=== PATIENT | female | born 1945 | race Caucasian/White ===

== ENCOUNTER 2020-08-14 08:56 | Emergency (ER) | payer MEDICARE, BC ==
--- NOTE | 2020-08-14 09:20 | ERPHSYRPT ---
- History of Present Illness Time Seen by Provider: 08/14/20 09:20 Source: patient Exam Limitations: no limitations Physician History: This is a 75-year-old white female who was in the infusion center receiving her last dose of Rocephin through a PIC line that is been present since her diagnosis of septicemia. The patient received her infusion of Rocephin and was to be discharged to home after removal of the PICC line. However, patient was recorded to have a systolic blood pressure in the 70s. Patient is and was asymptomatic. The nursing staff did not feel comfortable discharging her to home. Therefore, they sent her to the emergency room for evaluation. Patient does have a history of coronary artery disease and CABG in the past. However she is not having any shortness of breath or chest pain. Patient systolic blood pressures x2 upon arrival to the emergency department is 130 and 120 respectively. Timing/Duration: today Modifying Factors: Improves With: nothing Associated Symptoms: denies symptoms Allergies/Adverse Reactions: iodine Allergy (Severe, Verified 08/14/20 09:23) Hives Home Medications: Albuterol 2.5 mg/3 ml Neb [Proventil 2.5 mg/3 ml Neb] 2.5 mg IH QID 08/06/20 [History] Albuterol/Ipratropium cc [Combivent Inhaler COMMON CANISTER] 15 gm IH DAILY 08/06/20 [History] Amlodipine Besylate [Norvasc] 2.5 mg PO DAILY 08/06/20 [History] Aspirin EC 81 mg [Ecotrin 81 mg] 81 mg PO DAILY 08/06/20 [History] Calcium Carb,Cit/D3/Phytostrol [Citracal D + Heart Health Tab] 1 each PO DAILY 08/06/20 [History] Carvedilol [Coreg] 25 mg PO BID 08/06/20 [History] Clopidogrel Bisulfate 75 mg [PLAVIX 75 MG Tablet] 75 mg PO DAILY 08/06/20 [History] Famotidine 20 mg [Pepcid 20 MG] 20 mg PO BID 08/06/20 [History] Furosemide [Lasix] 20 mg PO DAILY 08/06/20 [History] Losartan Potassium [Cozaar] 25 mg PO BID 08/06/20 [History] Potassium Chloride [Klor-Con] 20 meq PO DAILY 08/06/20 [History] Prednisone 20 mg PO BID 08/06/20 [History] Rosuvastatin Calcium [Crestor] 20 mg PO HS 08/06/20 [History] Travel Risk - International Travel Have you traveled outside of the country in past 3 weeks: No - Coronavirus Screening Are you exhibiting any of the following symptoms?: No Close contact with a COVID-19 positive Pt in past 14-21 Days: No - Review of Systems Constitutional: No Symptoms Eyes: No Symptoms Ears, Nose, & Throat: No Symptoms Respiratory: No Symptoms Cardiac: No Symptoms Abdominal/Gastrointestinal: No Symptoms Genitourinary Symptoms: No Symptoms Musculoskeletal: No Symptoms Skin: No Symptoms Neurological: No Symptoms Psychological: No Symptoms Endocrine: No Symptoms Hematologic/Lymphatic: No Symptoms Immunological/Allergic: No Symptoms All Other Systems: Reviewed and Negative - Past Medical History Neurological History: No Pertinent History ENT History: Cataracts Cardiac History: Coronary Artery Disease, High Cholesterol, Hypertension Respiratory History: COPD, Emphysema, Pneumonia Endocrine Medical History: No Pertinent History Musculoskeletal History: Arthritis, Osteoarthritis GI Medical History: GERD, Polyps History: No Pertinent History Psycho-Social History: No Pertinent History Female Reproductive Disorders: No Pertinent History - Past Surgical History Past Surgical History: Yes Neuro Surgical History: No Pertinent History Cardiac: CABG Gastrointestinal: Appendectomy, Cholecystectomy Genitourinary: No Pertinent History Musculoskeletal: Orthopedic Surgery Female Surgical History: Hysterectomy, Tubal Ligation Other Surgical History: 2 screws in lower back,carpal tunnel release to right wrist - Social History Smoking Status: Former smoker Drug Use: none - Nursing Vital Signs Nursing Vital Signs: Initial Vital Signs Temperature 98.2 F 08/14/20 09:13 Pulse Rate 71 08/14/20 09:13 Respiratory Rate 20 08/14/20 09:13 Blood Pressure 137/79 08/14/20 09:13 O2 Sat by Pulse Oximetry 99 08/14/20 09:13 Pain Scale Pain Intensity 0 - Physical Exam General Appearance: no apparent distress, alert Eye Exam: PERRL/EOMI, eyes nml inspection Ears, Nose, Throat Exam: normal ENT inspection, moist mucous membranes Neck Exam: normal inspection, non-tender, supple, full range of motion Respiratory Exam: normal breath sounds, lungs clear, airway intact, No chest tenderness, No respiratory distress Cardiovascular Exam: regular rate/rhythm, normal heart sounds, normal peripheral pulses Gastrointestinal/Abdomen Exam: soft, normal bowel sounds, No tenderness Pelvic Exam: not done Rectal Exam: not done Back Exam: normal inspection, normal range of motion, No CVA tenderness, No vertebral tenderness Extremity Exam: normal inspection, normal range of motion, pelvis stable Neurologic Exam: alert, oriented x 3, cooperative, 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, normal mood/affect, nml cerebellar function, nml station & gait, sensation nml Skin Exam: normal color, warm, dry Lymphatic Exam: No adenopathy SpO2 Interpretation: normal O2 Delivery: Room Air Ordered Tests: Active Orders 24 hr Category Date Time Status EKG-ER Only STAT Care 08/14/20 09:32 Active IV Insertion STAT Care 08/14/20 09:32 Active BMP Stat Lab 08/14/20 10:00 Completed CBC W DIFF Stat Lab 08/14/20 10:00 Completed Manual Differential NC Stat Lab 08/14/20 10:00 Completed TROPONIN Q3H Lab 08/14/20 10:00 Completed TROPONIN Q3H Lab 08/14/20 12:45 Ordered TROPONIN Q3H Lab 08/14/20 15:45 Ordered TROPONIN Q3H Lab 08/14/20 18:45 Ordered TROPONIN Q3H Lab 08/14/20 21:45 Ordered UA W/RFX UR CULTURE Stat Lab 08/14/20 10:05 Completed Medication Summary Discontinued Medications Generic Name Dose Route Start Last Admin Trade Name Freq PRN Reason Stop Dose Admin Sodium Chloride 500 mls @ 500 mls/hr 08/14/20 09:33 08/14/20 09:38 Sodium Chloride 0.9% 500 Ml IV 08/14/20 10:32 500 mls/hr .Q1H ONE Administration Sodium Chloride Confirm 08/14/20 09:36 Sodium Chloride 0.9% 500 Ml Administered 08/14/20 09:37 Dose 500 mls @ ud IV .STK-MED ONE Lab/Rad Data: Laboratory Result Diagrams 08/14/20 10:00 08/14/20 10:00 Laboratory Results 08/14/20 08/14/20 08/14/20 Range/Units 10:05 10:00 10:00 WBC (4.0-10.5) K/mm3 RBC (4.1-5.4) M/mm3 Hgb (12.0-16.0) gm/dl Hct (35-47) % MCV (78-100) fl MCH (26-32) pg MCHC (32-36) g/dl RDW (11.5-14.0) % Plt Count (150-450) K/mm3 MPV (7.5-11.0) fl Sodium 139 (137-145) mmol/L Potassium 3.9 (3.5-5.1) mmol/L Chloride 107 (98-107) mmol/L Carbon Dioxide 27 (22-30) mmol/L Anion Gap 8.9 (5-15) MEQ/L BUN 12 (7-17) mg/dL Creatinine 1.07 H (0.52-1.04) mg/dL Estimated GFR 53.1 ML/MIN Glucose 93 (74-106) mg/dL Calcium 9.3 (8.4-10.2) mg/dL Troponin I < 0.012 (0.000-0.034) ng/mL Urine Color YELLOW (YELLOW) Urine Appearance CLEAR (CLEAR) Urine pH 7.0 (5-6) Ur Specific Gaines 1.014 (1.005-1.025) Urine Protein NEGATIVE (Negative) Urine Ketones NEGATIVE (NEGATIVE) Urine Blood NEGATIVE (0-5) Estuardo/ul Urine Nitrite NEGATIVE (NEGATIVE) Urine Bilirubin NEGATIVE (NEGATIVE) Urine Urobilinogen NEGATIVE (0-1) mg/dL Ur Leukocyte Esterase NEGATIVE (NEGATIVE) Urine WBC (Auto) 6-10 (0-5) /HPF Urine RBC (Auto) 0-2 (0-2) /HPF U Hyaline Cast (Auto) 0-2 (0-2) /LPF U Epithel Cells (Auto) RARE (FEW) /HPF Urine Bacteria (Auto) NONE SEEN (NEGATIVE) /HPF Other Casts (Auto) NEGATIVE (NEGATIVE) /LPF Urine Mucus (Auto) SLIGHT (NEGATIVE) /HPF Urine Culture Reflexed NO (NO) Urine Glucose NEGATIVE (NEGATIVE) mg/dL 08/14/20 Range/Units 10:00 WBC 8.7 (4.0-10.5) K/mm3 RBC 3.22 L (4.1-5.4) M/mm3 Hgb 10.8 L (12.0-16.0) gm/dl Hct 34.6 L (35-47) % MCV 107.5 H (78-100) fl MCH 33.5 H (26-32) pg MCHC 31.2 L (32-36) g/dl RDW 14.4 H (11.5-14.0) % Plt Count 176 (150-450) K/mm3 MPV 10.8 (7.5-11.0) fl Sodium (137-145) mmol/L Potassium (3.5-5.1) mmol/L Chloride (98-107) mmol/L Carbon Dioxide (22-30) mmol/L Anion Gap (5-15) MEQ/L BUN (7-17) mg/dL Creatinine (0.52-1.04) mg/dL Estimated GFR ML/MIN Glucose (74-106) mg/dL Calcium (8.4-10.2) mg/dL Troponin I (0.000-0.034) ng/mL Urine Color (YELLOW) Urine Appearance (CLEAR) Urine pH (5-6) Ur Specific Gaines (1.005-1.025) Urine Protein (Negative) Urine Ketones (NEGATIVE) Urine Blood (0-5) Estuardo/ul Urine Nitrite (NEGATIVE) Urine Bilirubin (NEGATIVE) Urine Urobilinogen (0-1) mg/dL Ur Leukocyte Esterase (NEGATIVE) Urine WBC (Auto) (0-5) /HPF Urine RBC (Auto) (0-2) /HPF U Hyaline Cast (Auto) (0-2) /LPF U Epithel Cells (Auto) (FEW) /HPF Urine Bacteria (Auto) (NEGATIVE) /HPF Other Casts (Auto) (NEGATIVE) /LPF Urine Mucus (Auto) (NEGATIVE) /HPF Urine Culture Reflexed (NO) Urine Glucose (NEGATIVE) mg/dL - Progress Progress: unchanged Progress Note: 08/14/20 11:03 Patient has no symptoms. She has no chest pain she is not short of breath. Her blood pressure is in a normal range. We will discharge her to home Counseled pt/family regarding: lab results, diagnosis, need for follow-up - Departure Departure Disposition: Home Clinical Impression: Hypotension Condition: Stable Critical Care Time: No Referrals: MARIUSZ LINARES MD [Primary Care Provider] - Additional Instructions: Drink plenty of fluids. Take your medication as prescribed. Follow-up with your primary care physician for further management.
[2020-08-14] MEDS ORDERED: Sodium Chloride 0.9% 500 ML 500 ML IV ONE ×2 (09:33→09:36)
[2020-08-14 10:07] LABS: Hematocrit 34.6 % (35-47); Hemoglobin 10.8 gm/dl (12.0-16.0); Mean Cell Volume 107.5 fl (78-100); Mean Corpuscular Hemoglobin 33.5 pg (26-32); Mean Corpuscular Hgb Concent. 31.2 g/dl (32-36); Mean Platelet Volume 10.8 fl (7.5-11.0); Platelet Count 176 K/mm3 (150-450); Red Blood Count 3.22 M/mm3 (4.1-5.4); Red Cell Distribution Width 14.4 % (11.5-14.0); White Blood Count 8.7 K/mm3 (4.0-10.5)
[2020-08-14 10:15] LABS: Appearance CLEAR (CLEAR); Bilirubin NEGATIVE (NEGATIVE); Blood NEGATIVE Ery/ul (0-5); Epithelial Cells RARE /HPF (FEW); Glucose NEGATIVE (NEGATIVE); Hyaline Casts 0-2 /LPF (0-2); Ketones NEGATIVE (NEGATIVE); Leukocyte Esterase NEGATIVE (NEGATIVE); Mucus SLIGHT /HPF (NEGATIVE); Nitrite NEGATIVE (NEGATIVE); Protein,Urine Dip NEGATIVE (Negative); RBC 0-2 /HPF (0-2); Specific Gravity 1.014 (1.005-1.025); Urobilinogen NEGATIVE mg/dL (0-1)
[2020-08-14 10:26] LABS: Bacteria NONE SEEN /HPF (NEGATIVE)
[2020-08-14 10:30] LABS: ANION GAP 8.9 MEQ/L (5-15); Calcium 9.3 mg/dL (8.4-10.2); Creatinine 1 1.07 mg/dL (0.52-1.04); EST GLOMERULAR FILTRATION RATE 53.1 ML/MIN; Potassium 3.9 mmol/L (3.5-5.1)
[2020-08-14 11:33] VITALS: BP 128/71; PULSE 68; O2SAT 98
[2020-08-14 11:40] LABS: BAND 1 % (0.0-2.0); Eosinophil 2 % (0.00-3.0); Lymphocytes 37 % (24-44); Monocyte 14 % (0.0-12.0); Neutrophils 46 % (36.0-66.0); Total Cells Counted 100
[2020-08-14 11:41] LABS: Platelet Estimate NORMAL (NORMAL)
== END 2020-08-14 11:22 | disposition home or self-care (01) ==
LOC: ED 08:56
DX: I95.9 Hypotension, unspecified (principal); I25.10 Atherosclerotic heart disease of native coronary artery without angina pectoris; Z95.1 Presence of aortocoronary bypass graft; I10 Essential (primary) hypertension; E78.00 Pure hypercholesterolemia, unspecified; Z79.899 Other long term (current) drug therapy
CPT/HCPCS: 36415; 80048; 81001; 84484; 85025; 93005; 99284

== ENCOUNTER 2021-05-23 11:26 | Observation (INO) | payer MEDICARE, BC ==
[2021-05-23] MEDS ORDERED: MEDICATION INTERVENTION MC SCH (15:15)
[2021-05-23] MEDS: Sodium Chloride 0.9% 1000 ML 1,000 ML IV SCH (16:14)
[2021-05-23] MEDS: ROCEPHIN 1 Gm-D5w 50 ml Bag** 1 G/50 ML IVPB IV SCH (16:15)
--- NOTE | 2021-05-23 16:34 | XRAY ---
Indication: Short of breath. Comparison: January 15, 2020. PA/lateral chest again demonstrates COPD, CIPD, and a few tiny calcified granulomas. No focal infiltrate, consolidation, or large effusion. Heart not enlarged again with CABG surgery. Bony thorax intact again with mild osteopenia and minimal degenerative changes. Impression: Nonacute chest with chronic features.
[2021-05-23 16:36] LABS: Hematocrit 35.4 % (35-47); Hemoglobin 11.4 gm/dl (12.0-16.0); Mean Cell Volume 101.7 fl (78-100); Mean Corpuscular Hemoglobin 32.8 pg (26-32); Mean Corpuscular Hgb Concent. 32.2 g/dl (32-36); Mean Platelet Volume 9.2 fl (7.5-11.0); Platelet Count 248 K/mm3 (150-450); Red Blood Count 3.48 M/mm3 (4.1-5.4); Red Cell Distribution Width 13.1 % (11.5-14.0); White Blood Count 12.7 K/mm3 (4.0-10.5)
[2021-05-23 16:59] LABS: ALBUMIN 3.7 g/dL (3.5-5.0); ANION GAP 14.4 MEQ/L (5-15); BILIRUBIN,TOTAL 0.7 mg/dL (0.2-1.3); Creatinine 1 1.13 mg/dL (0.52-1.04); EST GLOMERULAR FILTRATION RATE 49.8 ML/MIN; Potassium 4.2 mmol/L (3.5-5.1); Total Protein 6.7 g/dL (6.3-8.2)
[2021-05-23] MEDS: Zithromax 500 MG/ 250 ML NaCl Premix 500 MG/250 ML IVPB IV SCH (17:16)
[2021-05-23] MEDS: PROVENTIL 2.5 MG/3 ML NEB IH SCH ×2 (17:23→20:15)
[2021-05-23] MEDS ORDERED: Advair Hfa 230/21 Mcg COMMON CANISTER IH SCH (19:00)
[2021-05-23 20:01] LABS: Eosinophil 1 % (0.00-3.0); Lymphocytes 16 % (24-44); Macrocytosis 1+; Monocyte 8 % (0.0-12.0); Neutrophils 75 % (36.0-66.0); Platelet Estimate NORMAL (NORMAL); Total Cells Counted 100
[2021-05-23] MEDS: Advair Hfa 115/21 Common canister IH SCH (20:18)
[2021-05-23] MEDS: ZOCOR 20MG PO SCH (21:03)
[2021-05-23] MEDS: COREG 12.5 MG PO SCH (21:03)
[2021-05-23] MEDS: Pepcid 20 MG PO SCH (21:04)
[2021-05-23] MEDS: Cozaar 50 MG PO SCH (21:06)
[2021-05-23 21:30] LABS: Appearance SLIGHTLY CLOUDY (CLEAR); Bacteria RARE /HPF (NEGATIVE); Bilirubin NEGATIVE (NEGATIVE); Blood MODERATE Ery/ul (0-5); Epithelial Cells RARE /HPF (FEW); Glucose NEGATIVE (NEGATIVE); Ketones TRACE (NEGATIVE); Leukocyte Esterase LARGE (NEGATIVE); Mucus SLIGHT /HPF (NEGATIVE); Nitrite NEGATIVE (NEGATIVE); Protein,Urine Dip 30 (Negative); RBC 0-2 /HPF (0-2); Urobilinogen NEGATIVE mg/dL (0-1); WBC >100 /HPF (0-5)
[2021-05-23] MEDS ORDERED: NON-FORMULARY ITEM (Rosuvastatin Calcium [Crestor] 20 MG) PO SCH (22:00)
[2021-05-23] MEDS ORDERED: NON-FORMULARY ITEM (Carvedilol [Coreg] 25 MG) PO SCH (22:00)
[2021-05-23] MEDS ORDERED: NON-FORMULARY ITEM (Losartan Potassium [Cozaar] 25 MG) PO SCH (22:00)
[2021-05-23] MEDS: TYLENOL 325 MG PO PRN (23:48)
[2021-05-24] MEDS: Sodium Chloride 0.9% 1000 ML 1,000 ML IV SCH ×2 (04:50→20:28)
[2021-05-24] MEDS ORDERED: DUONEB 0.5-3 MG/3 ml Neb IH SCH (07:00)
[2021-05-24] MEDS: PROVENTIL 2.5 MG/3 ML NEB IH SCH ×4 (07:31→18:55)
[2021-05-24] MEDS: Advair Hfa 115/21 Common canister IH SCH ×2 (07:34→18:55)
--- NOTE | 2021-05-24 08:02 | PCM.HP.ADD ---
Addendum to History & Physical - History & Physical Addendum Addendum to History & Physical: This certifies that the History & Physical in the electronic chart reflects the current health status of the patient. If there are changes in the H&P these changes/exceptions are listed as follows.
--- NOTE | 2021-05-24 08:04 | PCM.NOTE ---
Date and Time: 05/24/21801 Subjective Assessment: feeling little better - Review of Systems Constitutional: No Fever, No Chills Eyes: No Symptoms Ears, Nose, & Throat: No Symptoms Respiratory: Cough, Orthopnea, Wheezing, No Short Of Breath Cardiac: No Chest Pain, No Edema, No Syncope Abdominal/Gastrointestinal: No Abdominal Pain, No Nausea, No Vomiting, No Diarrhea Genitourinary Symptoms: No Dysuria Musculoskeletal: No Back Pain, No Neck Pain Skin: No Rash Neurological: No Dizziness, No Focal Weakness, No Sensory Changes Psychological: No Symptoms Endocrine: No Symptoms Hematologic/Lymphatic: No Symptoms Immunological/Allergic: No Symptoms Objective Exam General Appearance: no apparent distress, alert Neurologic Exam: alert, oriented x 3, cooperative, normal mood/affect, nml cerebellar function, sensation nml, No motor deficits Skin Exam: normal color, warm, dry Eye Exam: PERRL, EOMI, eyes nml inspection Ears, Nose, Throat Exam: normal ENT inspection, pharynx normal, moist mucous membranes Neck Exam: normal inspection, non-tender, supple, full range of motion Respiratory Exam: diminished breath sounds, rhonchi, wheezing, No respiratory distress Cardiovascular Exam: regular rate/rhythm, normal heart sounds Gastrointestinal/Abdomen Exam: soft, No tenderness, No mass Extremity Exam: normal inspection, normal range of motion Back Exam: normal inspection, normal range of motion, No CVA tenderness, No vertebral tenderness Pelvic Exam: deferred Rectal Exam: deferred OBJECTIVE DATA Vital Signs: Vital Signs - 24 hr Temp Pulse Resp BP BP Pulse Ox 05/24/21 07:35 67 16 97 05/24/21 04:00 96.8 F 62 12 118/57 96 05/23/21 23:44 96.9 F 66 16 111/56 97 05/23/21 21:08 71 134/60 05/23/21 20:21 64 22 97 05/23/21 19:06 97.5 F 71 16 96/51 98 05/23/21 17:23 76 22 97 05/23/21 16:00 97.4 F 67 22 139/68 97 05/23/21 14:07 97.4 F 67 24 139/68 97 Pain Assessment - Last Documented Pain Intensity 0 Pain Scale Used 0-10 Pain Scale Intake and Output: Intake & Output 05/21/21 05/22/21 05/23/21 05/24/21 11:59 11:59 11:59 11:59 Intake Total 1797 Output Total 800 Balance 997 Weight 65.5 kg Lab Results: Lab Results-Last 24 Hours 05/23/21 05/23/21 05/23/21 Range/Units 13:06 15:33 16:16 WBC 12.7 H (4.0-10.5) K/mm3 RBC 3.48 L (4.1-5.4) M/mm3 Hgb 11.4 L (12.0-16.0) gm/dl Hct 35.4 (35-47) % MCV 101.7 H (78-100) fl MCH 32.8 H (26-32) pg MCHC 32.2 (32-36) g/dl RDW 13.1 (11.5-14.0) % Plt Count 248 (150-450) K/mm3 MPV 9.2 (7.5-11.0) fl Segmented Neutrophils 75 H (36.0-66.0) % Lymphocytes (Manual) 16 L (24-44) % Monocytes (Manual) 8 (0.0-12.0) % Eosinophils (Manual) 1 (0.00-3.0) % Platelet Estimate NORMAL (NORMAL) RBC Morphology ABNORMAL Macrocytosis 1+ Sodium (137-145) mmol/L Potassium (3.5-5.1) mmol/L Chloride (98-107) mmol/L Carbon Dioxide (22-30) mmol/L Anion Gap (5-15) MEQ/L BUN (7-17) mg/dL Creatinine (0.52-1.04) mg/dL Estimated GFR ML/MIN Glucose (74-106) mg/dL Calcium (8.4-10.2) mg/dL Total Bilirubin (0.2-1.3) mg/dL AST (14-36) U/L ALT (0-35) U/L Alkaline Phosphatase (38-126) U/L NT-Pro-B Natriuret Pep (0-1800) pg/mL Serum Total Protein (6.3-8.2) g/dL Albumin (3.5-5.0) g/dL Urine Color YELLOW (YELLOW) Urine Appearance SLIGHTLY CLOUDY (CLEAR) Urine pH 7.0 (5-6) Ur Specific [place] 1.010 (1.005-1.025) Urine Protein 30 (Negative) Urine Ketones TRACE (NEGATIVE) Urine Blood MODERATE (0-5) Estuardo/ul Urine Nitrite NEGATIVE (NEGATIVE) Urine Bilirubin NEGATIVE (NEGATIVE) Urine Urobilinogen NEGATIVE (0-1) mg/dL Ur Leukocyte Esterase LARGE (NEGATIVE) Urine WBC (Auto) >100 (0-5) /HPF Urine RBC (Auto) 0-2 (0-2) /HPF U Epithel Cells (Auto) RARE (FEW) /HPF Urine Bacteria (Auto) RARE (NEGATIVE) /HPF Urine Mucus (Auto) SLIGHT (NEGATIVE) /HPF Urine Culture Reflexed YES (NO) Urine Glucose NEGATIVE (NEGATIVE) mg/dL SARS-CoV-2 (PCR) NEGATIVE (NEGATIVE) 05/23/21 Range/Units 16:16 WBC (4.0-10.5) K/mm3 RBC (4.1-5.4) M/mm3 Hgb (12.0-16.0) gm/dl Hct (35-47) % MCV (78-100) fl MCH (26-32) pg MCHC (32-36) g/dl RDW (11.5-14.0) % Plt Count (150-450) K/mm3 MPV (7.5-11.0) fl Segmented Neutrophils (36.0-66.0) % Lymphocytes (Manual) (24-44) % Monocytes (Manual) (0.0-12.0) % Eosinophils (Manual) (0.00-3.0) % Platelet Estimate (NORMAL) RBC Morphology Macrocytosis Sodium 132 L (137-145) mmol/L Potassium 4.2 (3.5-5.1) mmol/L Chloride 99 (98-107) mmol/L Carbon Dioxide 23 (22-30) mmol/L Anion Gap 14.4 (5-15) MEQ/L BUN 24 H (7-17) mg/dL Creatinine 1.13 H (0.52-1.04) mg/dL Estimated GFR 49.8 ML/MIN Glucose 101 (74-106) mg/dL Calcium 9.0 (8.4-10.2) mg/dL Total Bilirubin 0.70 (0.2-1.3) mg/dL AST 44 H (14-36) U/L ALT 41 H (0-35) U/L Alkaline Phosphatase 93 (38-126) U/L NT-Pro-B Natriuret Pep 152 (0-1800) pg/mL Serum Total Protein 6.7 (6.3-8.2) g/dL Albumin 3.7 (3.5-5.0) g/dL Urine Color (YELLOW) Urine Appearance (CLEAR) Urine pH (5-6) Ur Specific [place] (1.005-1.025) Urine Protein (Negative) Urine Ketones (NEGATIVE) Urine Blood (0-5) Estuardo/ul Urine Nitrite (NEGATIVE) Urine Bilirubin (NEGATIVE) Urine Urobilinogen (0-1) mg/dL Ur Leukocyte Esterase (NEGATIVE) Urine WBC (Auto) (0-5) /HPF Urine RBC (Auto) (0-2) /HPF U Epithel Cells (Auto) (FEW) /HPF Urine Bacteria (Auto) (NEGATIVE) /HPF Urine Mucus (Auto) (NEGATIVE) /HPF Urine Culture Reflexed (NO) Urine Glucose (NEGATIVE) mg/dL SARS-CoV-2 (PCR) (NEGATIVE) Radiology Exams: Radiology Procedures Category Date Time Status CHEST 2 VIEWS (PA AND LAT) Stat Exams 05/23/21 15:50 Completed Assessment/Plan (1) Bronchitis Current Visit: Yes Status: Acute Assessment & Plan: Chief Complaint Diagnosis sob Allergies Allergy/AdvReac Type Severity Reaction Status Date / Time iodine Allergy Severe Hives Verified 05/23/21 14:34 Vital Signs (Last 24 hours) Temp Pulse Resp BP BP Pulse Ox 05/24/21 07:35 67 16 97 05/24/21 04:00 96.8 F 62 12 118/57 96 05/23/21 23:44 96.9 F 66 16 111/56 97 05/23/21 21:08 71 134/60 05/23/21 20:21 64 22 97 05/23/21 19:06 97.5 F 71 16 96/51 98 05/23/21 17:23 76 22 97 05/23/21 16:00 97.4 F 67 22 139/68 97 05/23/21 14:07 97.4 F 67 24 139/68 97 Home Medications Medication Instructions Recorded Confirmed Last Taken Type Multivitamin [Multiple Vitamins] 1 each PO DAILY 05/23/21 05/23/21 05/23/21 History Current Medications Generic Name Dose Route Start Last Admin Trade Name Freq PRN Reason Stop Dose Admin Acetaminophen 650 mg 05/23/21 23:46 05/23/21 23:48 Tylenol 325 Mg PO 06/22/21 23:45 650 mg Q4H PRN PRN Administration PAIN AND/OR FEVER Albuterol Sulfate 2.5 mg 05/23/21 15:00 05/24/21 07:31 Proventil 2.5 Mg/3 Ml Neb IH 06/22/21 14:59 2.5 mg QIDRT MICKY Administration Amlodipine Besylate 2.5 mg 05/24/21 10:00 Norvasc 5 Mg PO 06/23/21 09:59 DAILY MICKY Aspirin 81 mg 05/24/21 10:00 Ecotrin 81 Mg PO 06/23/21 09:59 DAILY MICKY Carvedilol 25 mg 05/23/21 22:00 05/23/21 21:03 Coreg 12.5 Mg PO 06/22/21 21:59 25 mg BID MICKY Administration Clopidogrel Bisulfate 75 mg 05/24/21 10:00 Plavix 75 Mg Tablet PO 06/23/21 09:59 DAILY MICKY Famotidine 20 mg 05/23/21 22:00 05/23/21 21:04 Pepcid 20 Mg PO 06/22/21 21:59 20 mg BID MICKY Administration Furosemide 20 mg 05/24/21 10:00 Lasix 20 Mg PO 06/23/21 09:59 DAILY MICKY Sodium Chloride 1,000 mls @ 100 mls/hr 05/23/21 15:45 05/24/21 04:50 Sodium Chloride 0.9% 1000 Ml IV 06/22/21 15:44 100 mls/hr .Q10H MICKY Administration Ceftriaxone Sodium/Dextrose 1 g in 50 mls @ 100 mls/hr 05/23/21 16:00 05/23/21 16:15 Rocephin 1 Gm-D5w 50 Ml Bag IV 05/26/21 15:59 100 mls/hr 1600 MICKY Administration Azithromycin 500 mg in 250 mls @ 250 mls/hr 05/23/21 16:00 05/23/21 17:16 Zithromax 500 Mg/ 250 Ml Nacl Premix IV 06/22/21 15:59 250 mls/hr 1600 MICKY Administration Losartan Potassium 25 mg 05/23/21 22:00 05/23/21 21:06 Cozaar 50 Mg PO 06/22/21 21:59 25 mg BID MICKY Administration Miscellaneous Information 1 each 05/23/21 15:15 Medication Intervention 06/22/21 15:14 .RN TO CHECK MICKY Multivitamins Therapeutic 1 tab 05/24/21 10:00 Theragran Multivitamin PO 06/23/21 09:59 DAILY MICKY Potassium Chloride 20 meq 05/24/21 10:00 Klor Con 10 Meq PO 06/23/21 09:59 DAILY MICKY Fluticasone/Salmeterol 2 puff 05/23/21 19:00 05/24/21 07:34 Advair Hfa 115/21 Common Canister* IH 06/22/21 18:59 2 puff BIDRT MICKY Administration Simvastatin 40 mg 05/23/21 22:00 05/23/21 21:03 Zocor 20mg PO 06/22/21 21:59 40 mg HS MICKY Administration Discontinued Medications Generic Name Dose Route Start Last Admin Trade Name Freq PRN Reason Stop Dose Admin Albuterol/Ipratropium 3 ml 05/24/21 07:00 Duoneb 0.5-3 Mg/3 Ml Neb IH 06/23/21 06:59 0700 MICKY Fluticasone/Salmeterol 2 puff 05/23/21 19:00 Advair Hfa 230/21 Mcg Common Canister* IH 06/22/21 18:59 BIDRT MICKY Intake & Output (Last 24 hours) 05/21/21 05/22/21 05/23/21 05/24/21 11:59 11:59 11:59 11:59 Intake Total 1797 Output Total 800 Balance 997 Weight 65.5 kg Microbiology Results (Last 24 hours) 05/23/21 15:33 Urine, Void Urine Culture - Pending Laboratory Results (Last 24 hours) 05/23/21 05/23/21 05/23/21 16:16 16:16 15:33 WBC 12.7 H RBC 3.48 L Hgb 11.4 L Hct 35.4 MCV 101.7 H MCH 32.8 H MCHC 32.2 RDW 13.1 Plt Count 248 MPV 9.2 Segmented Neutrophils 75 H Lymphocytes (Manual) 16 L Monocytes (Manual) 8 Eosinophils (Manual) 1 Platelet Estimate NORMAL RBC Morphology ABNORMAL Macrocytosis 1+ Sodium 132 L Potassium 4.2 Chloride 99 Carbon Dioxide 23 Anion Gap 14.4 BUN 24 H Creatinine 1.13 H Estimated GFR 49.8 Glucose 101 Calcium 9.0 Total Bilirubin 0.70 AST 44 H ALT 41 H Alkaline Phosphatase 93 NT-Pro-B Natriuret Pep 152 Serum Total Protein 6.7 Albumin 3.7 Urine Color YELLOW Urine Appearance SLIGHTLY CLOUDY Urine pH 7.0 Ur Specific [place] 1.010 Urine Protein 30 Urine Ketones TRACE Urine Blood MODERATE Urine Nitrite NEGATIVE Urine Bilirubin NEGATIVE Urine Urobilinogen NEGATIVE Ur Leukocyte Esterase LARGE Urine WBC (Auto) >100 Urine RBC (Auto) 0-2 U Epithel Cells (Auto) RARE Urine Bacteria (Auto) RARE Urine Mucus (Auto) SLIGHT Urine Culture Reflexed YES Urine Glucose NEGATIVE SARS-CoV-2 (PCR) 05/23/21 13:06 WBC RBC Hgb Hct MCV MCH MCHC RDW Plt Count MPV Segmented Neutrophils Lymphocytes (Manual) Monocytes (Manual) Eosinophils (Manual) Platelet Estimate RBC Morphology Macrocytosis Sodium Potassium Chloride Carbon Dioxide Anion Gap BUN Creatinine Estimated GFR Glucose Calcium Total Bilirubin AST ALT Alkaline Phosphatase NT-Pro-B Natriuret Pep Serum Total Protein Albumin Urine Color Urine Appearance Urine pH Ur Specific [place] Urine Protein Urine Ketones Urine Blood Urine Nitrite Urine Bilirubin Urine Urobilinogen Ur Leukocyte Esterase Urine WBC (Auto) Urine RBC (Auto) U Epithel Cells (Auto) Urine Bacteria (Auto) Urine Mucus (Auto) Urine Culture Reflexed Urine Glucose SARS-CoV-2 (PCR) NEGATIVE Orders (Last 24 hours) Category Date Time Status Up Ad Jackie TOLERATED Activity 05/23/21 15:[address] in Observation ROUTINE Care 05/23/21 15:31 Active House Regular Diet Diet 05/23/21 Dinner Active CHEST 2 VIEWS (PA AND LAT) Stat Exams 05/23/21 15:50 Completed CBC W DIFF Stat Lab 05/23/21 16:16 Completed CMP Stat Lab 05/23/21 16:16 Completed CULTURE,URINE Stat Lab 05/23/21 15:33 Received Manual Differential NC Stat Lab 05/23/21 16:16 Completed NT PRO BNP Stat Lab 05/23/21 16:16 Completed SARS-CoV-2 Xpert Express Routine Lab 05/23/21 13:06 Completed UA W/RFX UR CULTURE Stat Lab 05/23/21 15:33 Completed Acetaminophen 325 mg [Tylenol 325 mg] Med 05/23/21 23:46 Active 650 mg PO Q4H PRN PRN Albuterol 2.5 mg/3 ml Neb [Proventil 2.5 mg/3 ml Neb Med 05/23/21 15:00 Active ] 2.5 mg IH QIDRT Albuterol/Ipratropium 3ml Neb* [DUONEB 0.5-3 MG/3 ml Med 05/24/21 07:00 Discontinued Neb] 3 ml IH 0700 Amlodipine Besylate 5 mg [Norvasc 5 mg] Med 05/24/21 10:00 Active 2.5 mg PO DAILY Aspirin EC 81 mg [Ecotrin 81 mg] Med 05/24/21 10:00 Active 81 mg PO DAILY Azithromycin 500 mg/250 ml [Zithromax 500 MG/ 250 ML Med 05/23/21 16:00 Active NaCl Premix] 500 mg in 250 ml IV 1600 Carvedilol 12.5 mg [Coreg 12.5 mg] Med 05/23/21 22:00 Active 25 mg PO BID Ceftriaxone 1 GM/50 ML PREMIX* [ROCEPHIN 1 Gm-D5w 50 ml Med 05/23/21 16:00 Active Bag] 1 g in 50 ml IV 1600 Clopidogrel Bisulfate 75 mg [PLAVIX 75 MG Tablet] Med 05/24/21 10:00 Active 75 mg PO DAILY Famotidine 20 mg [Pepcid 20 MG] Med 05/23/21 22:00 Active 20 mg PO BID Fluticasone/Salmeterol 115/21 [Advair Hfa 115/21 Common Med 05/23/21 19:00 Active canister*] 2 puff IH BIDRT Fluticasone/Salmeterol 230/21 [Advair Hfa 230/21 Mcg Med 05/23/21 19:00 Discontinued COMMON CANISTER*] 2 puff IH BIDRT Furosemide 20 mg [Lasix 20 mg] Med 05/24/21 10:00 Active 20 mg PO DAILY Losartan Potassium 50 mg [Cozaar 50 MG] Med 05/23/21 22:00 Active 25 mg PO BID Medication Intervention Med 05/23/21 15:15 Active 1 each MC .RN TO CHECK Multivitamins,Therapeutic Tab* [Theragran Multivitamin* Med 05/24/21 10:00 Active ] 1 tab PO DAILY NaCl 0.9% 1000 ml [Sodium Chloride 0.9% 1000 ML] 1,000 Med 05/23/21 15:45 Active ml IV 100 mls/hr Potassium Chloride 10 Meq Tab* [Klor Con 10 MEQ] Med 05/24/21 10:00 Active 20 meq PO DAILY Simvastatin 20Mg [Zocor 20Mg] Med 05/23/21 22:00 Active 40 mg PO HS EKG STAT RT 05/23/21 15:31 Completed Oxygen Nasal Cannula 2 lpm RT 05/23/21 15:31 Active Pulse Oximetry .spot check RT 05/23/21 17:21 Active Respiratory Therapy Assessment DAILY RT 05/23/21 17:20 Active Respiratory Therapy Consult ROUTINE RT 05/23/21 15:31 Completed Code(s): J40 - BRONCHITIS, NOT SPECIFIED ACUTE OR CHRONIC
[2021-05-24] MEDS: COREG 12.5 MG PO SCH ×2 (09:30→21:36)
[2021-05-24] MEDS: NORVASC 5 MG PO SCH (09:31)
[2021-05-24] MEDS: THERAGRAN MULTIVITAMIN PO SCH (09:37)
[2021-05-24] MEDS: PLAVIX 75 MG Tablet PO SCH (09:37)
[2021-05-24] MEDS: ECOTRIN 81 MG PO SCH (09:37)
[2021-05-24] MEDS: Pepcid 20 MG PO SCH ×2 (09:37→21:36)
[2021-05-24] MEDS: Klor Con 10 MEQ PO SCH (09:38)
[2021-05-24] MEDS: LASIX 20 MG PO SCH (09:38)
[2021-05-24] MEDS: Cozaar 50 MG PO SCH ×2 (09:39→21:36)
[2021-05-24] MEDS ORDERED: Combivent Inhaler COMMON CANISTER IH SCH (10:00)
[2021-05-24] MEDS ORDERED: D3 PO SCH (10:00)
[2021-05-24] MEDS ORDERED: PHYTOSTROL PO SCH (10:00)
[2021-05-24] MEDS ORDERED: POTASSIUM CHLORIDE 20 MEQ PO SCH (10:00)
[2021-05-24] MEDS ORDERED: NON-FORMULARY ITEM (Amlodipine Besylate [Norvasc] 2.5 MG) PO SCH (10:00)
[2021-05-24] MEDS ORDERED: NON-FORMULARY ITEM (Multivitamin [Multiple Vitamins] 1 EACH) PO SCH (10:00)
[2021-05-24] MEDS ORDERED: CALCIUM CARB CIT PO SCH (10:00)
[2021-05-24] MEDS ORDERED: [UNRECOGNIZED DRUG - OTHER] PO SCH (10:00)
[2021-05-24] MEDS: ROCEPHIN 1 Gm-D5w 50 ml Bag** 1 G/50 ML IVPB IV SCH (16:08)
[2021-05-24] MEDS: Zithromax 500 MG/ 250 ML NaCl Premix 500 MG/250 ML IVPB IV SCH (16:09)
[2021-05-24] MEDS: TYLENOL 325 MG PO PRN (16:28)
[2021-05-24] MEDS: ZOCOR 20MG PO SCH (21:36)
[2021-05-25] MEDS: TYLENOL 325 MG PO PRN (04:09)
[2021-05-25] MEDS: Advair Hfa 115/21 Common canister IH SCH (06:29)
[2021-05-25] MEDS: PROVENTIL 2.5 MG/3 ML NEB IH SCH ×2 (06:29→10:43)
--- NOTE | 2021-05-25 07:32 | PCM.NOTE ---
Date and Time: 05/25/21729 Subjective Assessment: doing better - Review of Systems Constitutional: No Fever, No Chills Eyes: No Symptoms Ears, Nose, & Throat: No Symptoms Respiratory: No Cough, No Short Of Breath Cardiac: No Chest Pain, No Edema, No Syncope Abdominal/Gastrointestinal: No Abdominal Pain, No Nausea, No Vomiting, No Diarrhea Genitourinary Symptoms: No Dysuria Musculoskeletal: No Back Pain, No Neck Pain Skin: No Rash Neurological: No Dizziness, No Focal Weakness, No Sensory Changes Psychological: No Symptoms Endocrine: No Symptoms Hematologic/Lymphatic: No Symptoms Immunological/Allergic: No Symptoms Objective Exam General Appearance: no apparent distress, alert Neurologic Exam: alert, oriented x 3, cooperative, normal mood/affect, nml cerebellar function, sensation nml, No motor deficits Skin Exam: normal color, warm, dry Eye Exam: PERRL, EOMI, eyes nml inspection Ears, Nose, Throat Exam: normal ENT inspection, pharynx normal, moist mucous membranes Neck Exam: normal inspection, non-tender, supple, full range of motion Respiratory Exam: normal breath sounds, lungs clear, No respiratory distress Cardiovascular Exam: regular rate/rhythm, normal heart sounds Gastrointestinal/Abdomen Exam: soft, No tenderness, No mass Extremity Exam: normal inspection, normal range of motion Back Exam: normal inspection, normal range of motion, No CVA tenderness, No vertebral tenderness Pelvic Exam: deferred Rectal Exam: deferred OBJECTIVE DATA Vital Signs: Vital Signs - 24 hr Temp Pulse Resp BP Pulse Ox 05/25/21 06:32 57 L 16 94 L 05/25/21 04:00 97.8 F 56 L 18 117/57 96 05/24/21 23:41 97.2 F 53 L 18 112/57 97 05/24/21 19:23 97.0 F 55 L 18 102/58 95 05/24/21 18:57 59 L 16 95 05/24/21 16:00 96.0 F 61 18 110/55 96 05/24/21 15:21 67 22 95 05/24/21 12:00 97.4 F 64 18 127/60 96 05/24/21 11:44 62 20 95 05/24/21 08:00 98.0 F 60 20 140/63 99 05/24/21 07:35 67 16 97 Pain Assessment - Last Documented Pain Intensity 2 Pain Scale Used 0-10 Pain Scale,FLACC Intake and Output: Intake & Output 05/22/21 05/23/21 05/24/21 05/25/21 11:59 11:59 11:59 11:59 Intake Total 2037 1171 Output Total 1150 1550 Balance 887 -379 Weight 65.5 kg Radiology Exams: Radiology Procedures Category Date Time Status CHEST 2 VIEWS (PA AND LAT) Stat Exams 05/23/21 15:50 Completed Assessment/Plan (1) UTI (urinary tract infection) due to Enterococcus Current Visit: Yes Status: Acute Assessment & Plan: Chief Complaint Diagnosis sob Allergies Allergy/AdvReac Type Severity Reaction Status Date / Time iodine Allergy Severe Hives Verified 05/23/21 14:34 Vital Signs (Last 24 hours) Temp Pulse Resp BP Pulse Ox 05/25/21 06:32 57 L 16 94 L 05/25/21 04:00 97.8 F 56 L 18 117/57 96 05/24/21 23:41 97.2 F 53 L 18 112/57 97 05/24/21 19:23 97.0 F 55 L 18 102/58 95 05/24/21 18:57 59 L 16 95 05/24/21 16:00 96.0 F 61 18 110/55 96 05/24/21 15:21 67 22 95 05/24/21 12:00 97.4 F 64 18 127/60 96 05/24/21 11:44 62 20 95 05/24/21 08:00 98.0 F 60 20 140/63 99 05/24/21 07:35 67 16 97 Home Medications Medication Instructions Recorded Confirmed Last Taken Type Multivitamin [Multiple Vitamins] 1 each PO DAILY 05/23/21 05/23/21 05/23/21 History Current Medications Generic Name Dose Route Start Last Admin Trade Name Freq PRN Reason Stop Dose Admin Acetaminophen 650 mg 05/23/21 23:46 05/25/21 04:09 Tylenol 325 Mg PO 06/22/21 23:45 650 mg Q4H PRN PRN Administration PAIN AND/OR FEVER Albuterol Sulfate 2.5 mg 05/23/21 15:00 05/25/21 06:29 Proventil 2.5 Mg/3 Ml Neb IH 06/22/21 14:59 2.5 mg QIDRT MICKY Administration Amlodipine Besylate 2.5 mg 05/24/21 10:00 05/24/21 09:31 Norvasc 5 Mg PO 06/23/21 09:59 2.5 mg DAILY MICKY Administration Aspirin 81 mg 05/24/21 10:00 05/24/21 09:37 Ecotrin 81 Mg PO 06/23/21 09:59 81 mg DAILY MICKY Administration Carvedilol 25 mg 05/23/21 22:00 05/24/21 21:36 Coreg 12.5 Mg PO 06/22/21 21:59 25 mg BID MICKY Administration Clopidogrel Bisulfate 75 mg 05/24/21 10:00 05/24/21 09:37 Plavix 75 Mg Tablet PO 06/23/21 09:59 75 mg DAILY MICKY Administration Famotidine 20 mg 05/23/21 22:00 05/24/21 21:36 Pepcid 20 Mg PO 06/22/21 21:59 20 mg BID MICKY Administration Furosemide 20 mg 05/24/21 10:00 05/24/21 09:38 Lasix 20 Mg PO 06/23/21 09:59 20 mg DAILY MICKY Administration Ceftriaxone Sodium/Dextrose 1 g in 50 mls @ 100 mls/hr 05/23/21 16:00 05/24/21 16:08 Rocephin 1 Gm-D5w 50 Ml Bag IV 05/26/21 15:59 100 mls/hr 1600 MICKY Administration Azithromycin 500 mg in 250 mls @ 250 mls/hr 05/23/21 16:00 05/24/21 16:09 Zithromax 500 Mg/ 250 Ml Nacl Premix IV 06/22/21 15:59 250 mls/hr 1600 MICKY Administration Losartan Potassium 25 mg 05/23/21 22:00 05/24/21 21:36 Cozaar 50 Mg PO 06/22/21 21:59 25 mg BID MICKY Administration Miscellaneous Information 1 each 05/23/21 15:15 Medication Intervention 06/22/21 15:14 .RN TO CHECK MICKY Multivitamins Therapeutic 1 tab 05/24/21 10:00 05/24/21 09:37 Theragran Multivitamin PO 06/23/21 09:59 1 tab DAILY MICKY Administration Potassium Chloride 20 meq 05/24/21 10:00 05/24/21 09:38 Klor Con 10 Meq PO 06/23/21 09:59 20 meq DAILY MICKY Administration Fluticasone/Salmeterol 2 puff 05/23/21 19:00 05/25/21 06:29 Advair Hfa 115/21 Common Canister* IH 06/22/21 18:59 2 puff BIDRT MICKY Administration Simvastatin 40 mg 05/23/21 22:00 05/24/21 21:36 Zocor 20mg PO 06/22/21 21:59 40 mg HS MICKY Administration Discontinued Medications Generic Name Dose Route Start Last Admin Trade Name Freq PRN Reason Stop Dose Admin Albuterol/Ipratropium 3 ml 05/24/21 07:00 Duoneb 0.5-3 Mg/3 Ml Neb IH 06/23/21 06:59 0700 MICKY Sodium Chloride 1,000 mls @ 100 mls/hr 05/23/21 15:45 05/24/21 20:28 Sodium Chloride 0.9% 1000 Ml IV 06/22/21 15:44 Not Given .Q10H MICKY Fluticasone/Salmeterol 2 puff 05/23/21 19:00 Advair Hfa 230/21 Mcg Common Canister* 06/22/21 18:59 BIDRT MICKY Intake & Output (Last 24 hours) 05/22/21 05/23/21 05/24/21 05/25/21 11:59 11:59 11:59 11:59 Intake Total 2037 1171 Output Total 1150 1550 Balance 887 -379 Weight 65.5 kg Orders (Last 24 hours) Category Date Time Status Albuterol/Ipratropium 3ml Neb* [DUONEB 0.5-3 MG/3 ml Med 05/24/21 07:00 Discontinued Neb] 3 ml IH 0700 Amlodipine Besylate 5 mg [Norvasc 5 mg] Med 05/24/21 10:00 Active 2.5 mg PO DAILY Aspirin EC 81 mg [Ecotrin 81 mg] Med 05/24/21 10:00 Active 81 mg PO DAILY Clopidogrel Bisulfate 75 mg [PLAVIX 75 MG Tablet] Med 05/24/21 10:00 Active 75 mg PO DAILY Furosemide 20 mg [Lasix 20 mg] Med 05/24/21 10:00 Active 20 mg PO DAILY Multivitamins,Therapeutic Tab* [Theragran Multivitamin* Med 05/24/21 10:00 Active ] 1 tab PO DAILY Potassium Chloride 10 Meq Tab* [Klor Con 10 MEQ] Med 05/24/21 10:00 Active 20 meq PO DAILY Patient Care Notes (Last 24 hours) 05/24/21 10:28 Nursing Note by Brionna Lozano Patient has been up in room and resting back in bed now on RA. O2 sats 95%. Initialized on 05/24/21 10:28 - END OF NOTE Code(s): N39.0 - URINARY TRACT INFECTION, SITE NOT SPECIFIED; B95.2 - ENTEROCOCCUS THE CAUSE OF DISEASES CLASSIFIED ELSEWHERE (2) Bronchitis Current Visit: Yes Status: Acute Code(s): J40 - BRONCHITIS, NOT SPECIFIED ACUTE OR CHRONIC (3) HTN (hypertension) Current Visit: Yes Status: Acute Qualifiers: Hypertension type: primary hypertension Qualified Code(s): I10 - Essential (primary) hypertension Code(s): I10 - ESSENTIAL (PRIMARY) HYPERTENSION
[2021-05-25] MEDS: COREG 12.5 MG PO SCH (08:23)
[2021-05-25] MEDS: Pepcid 20 MG PO SCH (08:24)
[2021-05-25] MEDS: NORVASC 5 MG PO SCH (08:24)
[2021-05-25] MEDS: LASIX 20 MG PO SCH (08:24)
[2021-05-25] MEDS: Klor Con 10 MEQ PO SCH (08:24)
[2021-05-25] MEDS: PLAVIX 75 MG Tablet PO SCH (08:24)
[2021-05-25] MEDS: ECOTRIN 81 MG PO SCH (08:24)
[2021-05-25] MEDS: THERAGRAN MULTIVITAMIN PO SCH (08:24)
[2021-05-25] MEDS: Cozaar 50 MG PO SCH (08:24)
--- NOTE | 2021-05-25 11:34 | PCM.DS ---
Discharge Summary Date of Admission: 05/23/21 12:41 Admitting Physician: MARIUSZ LINARES Primary Care Provider: MARIUSZ LINARES Allergies Allergies iodine Allergy (Severe, Verified 05/23/21 14:34) [facility] Hospital Summary - Hospital Course Hospital Course: Chief Complaint Diagnosis sob Allergies Allergy/AdvReac Type Severity Reaction Status Date / Time iodine Allergy Severe Hives Verified 05/23/21 14:34 Vital Signs (Last 24 hours) Temp Pulse Resp BP Pulse Ox 05/25/21 10:47 58 L 16 95 05/25/21 10:09 98 05/25/21 07:57 97.5 F 57 L 16 122/77 97 05/25/21 06:32 57 L 16 94 L 05/25/21 04:00 97.8 F 56 L 18 117/57 96 05/24/21 23:41 97.2 F 53 L 18 112/57 97 05/24/21 19:23 97.0 F 55 L 18 102/58 95 05/24/21 18:57 59 L 16 95 05/24/21 16:00 96.0 F 61 18 110/55 96 05/24/21 15:21 67 22 95 05/24/21 12:00 97.4 F 64 18 127/60 96 05/24/21 11:44 62 20 95 Home Medications Medication Instructions Recorded Confirmed Last Taken Type Multivitamin [Multiple Vitamins] 1 each PO DAILY 05/23/21 05/23/21 05/23/21 History Current Medications Generic Name Dose Route Start Last Admin Trade Name Freq PRN Reason Stop Dose Admin Acetaminophen 650 mg 05/23/21 23:46 05/25/21 04:09 Tylenol 325 Mg PO 06/22/21 23:45 650 mg Q4H PRN PRN Administration PAIN AND/OR FEVER Albuterol Sulfate 2.5 mg 05/23/21 15:00 05/25/21 10:43 Proventil 2.5 Mg/3 Ml Neb IH 06/22/21 14:59 2.5 mg QIDRT MICKY Administration Amlodipine Besylate 2.5 mg 05/24/21 10:00 05/25/21 08:24 Norvasc 5 Mg PO 06/23/21 09:59 2.5 mg DAILY MICKY Administration Aspirin 81 mg 05/24/21 10:00 05/25/21 08:24 Ecotrin 81 Mg PO 06/23/21 09:59 81 mg DAILY MICKY Administration Carvedilol 25 mg 05/23/21 22:00 05/25/21 08:23 Coreg 12.5 Mg PO 06/22/21 21:59 25 mg BID MICKY Administration Clopidogrel Bisulfate 75 mg 05/24/21 10:00 05/25/21 08:24 Plavix 75 Mg Tablet PO 06/23/21 09:59 75 mg DAILY MICKY Administration Famotidine 20 mg 05/23/21 22:00 05/25/21 08:24 Pepcid 20 Mg PO 06/22/21 21:59 20 mg BID MICKY Administration Furosemide 20 mg 05/24/21 10:00 05/25/21 08:24 Lasix 20 Mg PO 06/23/21 09:59 20 mg DAILY MICKY Administration Ceftriaxone Sodium/Dextrose 1 g in 50 mls @ 100 mls/hr 05/23/21 16:00 05/24/21 16:08 Rocephin 1 Gm-D5w 50 Ml Bag IV 05/26/21 15:59 100 mls/hr 1600 MICKY Administration Azithromycin 500 mg in 250 mls @ 250 mls/hr 05/23/21 16:00 05/24/21 16:09 Zithromax 500 Mg/ 250 Ml Nacl Premix IV 06/22/21 15:59 250 mls/hr 1600 MICKY Administration Losartan Potassium 25 mg 05/23/21 22:00 05/25/21 08:24 Cozaar 50 Mg PO 06/22/21 21:59 25 mg BID MICKY Administration Miscellaneous Information 1 each 05/23/21 15:15 Medication Intervention 06/22/21 15:14 .RN TO CHECK MICKY Multivitamins Therapeutic 1 tab 05/24/21 10:00 05/25/21 08:24 Theragran Multivitamin PO 06/23/21 09:59 1 tab DAILY MICKY Administration Potassium Chloride 20 meq 05/24/21 10:00 05/25/21 08:24 Klor Con 10 Meq PO 06/23/21 09:59 20 meq DAILY MICKY Administration Fluticasone/Salmeterol 2 puff 05/23/21 19:00 05/25/21 06:29 Advair Hfa 115/21 Common Canister* IH 06/22/21 18:59 2 puff BIDRT MICKY Administration Simvastatin 40 mg 05/23/21 22:00 05/24/21 21:36 Zocor 20mg PO 06/22/21 21:59 40 mg HS MICKY Administration Discontinued Medications Generic Name Dose Route Start Last Admin Trade Name Freq PRN Reason Stop Dose Admin Albuterol/Ipratropium 3 ml 05/24/21 07:00 Duoneb 0.5-3 Mg/3 Ml Neb IH 06/23/21 06:59 0700 MICKY Sodium Chloride 1,000 mls @ 100 mls/hr 05/23/21 15:45 05/24/21 20:28 Sodium Chloride 0.9% 1000 Ml IV 06/22/21 15:44 Not Given .Q10H MICKY Fluticasone/Salmeterol 2 puff 05/23/21 19:00 Advair Hfa 230/21 Mcg Common Canister* IH 06/22/21 18:59 BIDRT MICKY Intake & Output (Last 24 hours) 05/22/21 05/23/21 05/24/21 05/25/21 11:59 11:59 11:59 11:59 Intake Total 2037 1171 Output Total 1150 1550 Balance 887 -379 Weight 65.5 kg Microbiology Results (Last 24 hours) 05/23/21 15:33 Urine, Void Urine Culture - Preliminary GRAM NEGATIVE ID AND SENSITIVITY PENDING Patient Care Notes (Last 24 hours) 05/25/21 11:14 Case Management Note by Jennifer Laguerre S/W PATIENT THIS AM- SHE CONTINUES TO DENY ANY NEW NEEDS AT TIME OF DC. 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 Initialized on 05/25/21 11:14 - END OF NOTE - Vitals & Intake/Output Vital Signs: Vital Signs Temperature 97.5 F 05/25/21 07:57 Pulse Rate 58 L 05/25/21 10:47 Respiratory Rate 16 05/25/21 10:47 Blood Pressure 122/77 05/25/21 07:57 O2 Sat by Pulse Oximetry 95 05/25/21 10:47 Intake & Output: Intake & Output 05/22/21 05/23/21 05/24/21 05/25/21 11:59 11:59 11:59 11:59 Intake Total 2 1171 Output Total 1150 1550 Balance 887 -379 Weight 65.5 kg - Lab Result Diagrams: 05/23/21 16:16 05/23/21 16:16 Micro Results-Entire Visit: Microbiology 05/23/21 15:33 Urine Culture - Preliminary Urine, Void GRAM NEGATIVE ID AND SENSITIVITY PENDING - Radiology Exams Ordered Rad Exams-Entire Visit: Radiology Procedures Category Date Time Status CHEST 2 VIEWS (PA AND LAT) Stat Exams 05/23/21 15:50 Completed - Procedures and Test Procedures and Tests throughout Hospitalization: Therapy Orders & Screens 05/23/21 15:31 EKG STAT Comment: Diagnosis: sob Oxygen Nasal Cannula 2 lpm Comment: Diagnosis: sob Respiratory Therapy Consult ROUTINE Comment: Reason For Exam: Diagnosis: sob 05/23/21 17:20 Respiratory Therapy Assessment DAILY Comment: Diagnosis: sob Discharge Exam General Appearance: no apparent distress, alert Neurologic Exam: alert, oriented x 3, cooperative, normal mood/affect, nml cerebellar function, sensation nml, No motor deficits Eye Exam: PERRL, EOMI, eyes nml inspection Ears, Nose, Throat Exam: normal ENT inspection, pharynx normal, moist mucous membranes Neck Exam: normal inspection, non-tender, supple, full range of motion Respiratory Exam: normal breath sounds, lungs clear, No respiratory distress Cardiovascular Exam: regular rate/rhythm, normal heart sounds Gastrointestinal/Abdomen Exam: soft, No tenderness, No mass Pelvic Exam: deferred Rectal Exam: deferred Back Exam: normal inspection, normal range of motion, No CVA tenderness, No vertebral tenderness Extremity Exam: normal inspection, normal range of motion Skin Exam: normal color, warm, dry Final Diagnosis/Problem List - Final Discharge Diagnosis/Problem (1) UTI (urinary tract infection) due to Enterococcus Current Visit: Yes Status: Acute Assessment & Plan: Chief Complaint Diagnosis sob Allergies Allergy/AdvReac Type Severity Reaction Status Date / Time iodine Allergy Severe Hives Verified 05/23/21 14:34 Vital Signs (Last 24 hours) Temp Pulse Resp BP Pulse Ox 05/25/21 10:47 58 L 16 95 05/25/21 10:09 98 05/25/21 07:57 97.5 F 57 L 16 122/77 97 05/25/21 06:32 57 L 16 94 L 05/25/21 04:00 97.8 F 56 L 18 117/57 96 05/24/21 23:41 97.2 F 53 L 18 112/57 97 05/24/21 19:23 97.0 F 55 L 18 102/58 95 05/24/21 18:57 59 L 16 95 05/24/21 16:00 96.0 F 61 18 110/55 96 05/24/21 15:21 67 22 95 05/24/21 12:00 97.4 F 64 18 127/60 96 05/24/21 11:44 62 20 95 Home Medications Medication Instructions Recorded Confirmed Last Taken Type Multivitamin [Multiple Vitamins] 1 each PO DAILY 05/23/21 05/23/21 05/23/21 History Current Medications Generic Name Dose Route Start Last Admin Trade Name Freq PRN Reason Stop Dose Admin Acetaminophen 650 mg 05/23/21 23:46 05/25/21 04:09 Tylenol 325 Mg PO 06/22/21 23:45 650 mg Q4H PRN PRN Administration PAIN AND/OR FEVER Albuterol Sulfate 2.5 mg 05/23/21 15:00 05/25/21 10:43 Proventil 2.5 Mg/3 Ml Neb IH 06/22/21 14:59 2.5 mg QIDRT MICKY Administration Amlodipine Besylate 2.5 mg 05/24/21 10:00 05/25/21 08:24 Norvasc 5 Mg PO 06/23/21 09:59 2.5 mg DAILY MICKY Administration Aspirin 81 mg 05/24/21 10:00 05/25/21 08:24 Ecotrin 81 Mg PO 06/23/21 09:59 81 mg DAILY MICKY Administration Carvedilol 25 mg 05/23/21 22:00 05/25/21 08:23 Coreg 12.5 Mg PO 06/22/21 21:59 25 mg BID MICKY Administration Clopidogrel Bisulfate 75 mg 05/24/21 10:00 05/25/21 08:24 Plavix 75 Mg Tablet PO 06/23/21 09:59 75 mg DAILY MICKY Administration Famotidine 20 mg 05/23/21 22:00 05/25/21 08:24 Pepcid 20 Mg PO 06/22/21 21:59 20 mg BID MICKY Administration Furosemide 20 mg 05/24/21 10:00 05/25/21 08:24 Lasix 20 Mg PO 06/23/21 09:59 20 mg DAILY MICKY Administration Ceftriaxone Sodium/Dextrose 1 g in 50 mls @ 100 mls/hr 05/23/21 16:00 05/24/21 16:08 Rocephin 1 Gm-D5w 50 Ml Bag IV 05/26/21 15:59 100 mls/hr 1600 MICKY Administration Azithromycin 500 mg in 250 mls @ 250 mls/hr 05/23/21 16:00 05/24/21 16:09 Zithromax 500 Mg/ 250 Ml Nacl Premix IV 06/22/21 15:59 250 mls/hr 1600 MICKY Administration Losartan Potassium 25 mg 05/23/21 22:00 05/25/21 08:24 Cozaar 50 Mg PO 06/22/21 21:59 25 mg BID MICKY Administration Miscellaneous Information 1 each 05/23/21 15:15 Medication Intervention 06/22/21 15:14 .RN TO CHECK MICKY Multivitamins Therapeutic 1 tab 05/24/21 10:00 05/25/21 08:24 Theragran Multivitamin PO 06/23/21 09:59 1 tab DAILY MICKY Administration Potassium Chloride 20 meq 05/24/21 10:00 05/25/21 08:24 Klor Con 10 Meq PO 06/23/21 09:59 20 meq DAILY MICKY Administration Fluticasone/Salmeterol 2 puff 05/23/21 19:00 05/25/21 06:29 Advair Hfa 115/21 Common Canister* IH 06/22/21 18:59 2 puff BIDRT MICKY Administration Simvastatin 40 mg 05/23/21 22:00 05/24/21 21:36 Zocor 20mg PO 06/22/21 21:59 40 mg HS MICKY Administration Discontinued Medications Generic Name Dose Route Start Last Admin Trade Name Freq PRN Reason Stop Dose Admin Albuterol/Ipratropium 3 ml 05/24/21 07:00 Duoneb 0.5-3 Mg/3 Ml Neb IH 06/23/21 06:59 0700 MICKY Sodium Chloride 1,000 mls @ 100 mls/hr 05/23/21 15:45 05/24/21 20:28 Sodium Chloride 0.9% 1000 Ml IV 06/22/21 15:44 Not Given .Q10H MICKY Fluticasone/Salmeterol 2 puff 05/23/21 19:00 Advair Hfa 230/21 Mcg Common Canister* IH 06/22/21 18:59 BIDRT MICKY Intake & Output (Last 24 hours) 05/22/21 05/23/21 05/24/21 05/25/21 11:59 11:59 11:59 11:59 Intake Total 2037 1171 Output Total 1150 1550 Balance 887 -379 Weight 65.5 kg Microbiology Results (Last 24 hours) 05/23/21 15:33 Urine, Void Urine Culture - Preliminary GRAM NEGATIVE ID AND SENSITIVITY PENDING Patient Care Notes (Last 24 hours) 05/25/21 11:14 Case Management Note by Jennifer Laguerre S/W PATIENT THIS AM- SHE CONTINUES TO DENY ANY NEW NEEDS AT TIME OF DC. 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 Initialized on 05/25/21 11:14 - END OF NOTE Code(s): N39.0 - URINARY TRACT INFECTION, SITE NOT SPECIFIED; B95.2 - ENTEROCOCCUS THE CAUSE OF DISEASES CLASSIFIED ELSEWHERE (2) Bronchitis Current Visit: Yes Status: Acute Code(s): J40 - BRONCHITIS, NOT SPECIFIED ACUTE OR CHRONIC (3) HTN (hypertension) Current Visit: Yes Status: Acute Code(s): I10 - ESSENTIAL (PRIMARY) HYPERTENSION - Discharge Discharge Date: 05/25/21 Disposition: Home, Self-Care Condition: Stable Prescriptions: New Amoxicillin/Potassium Clav [Augmentin 875-125 Tablet] 1 each PO BID #14 tablet Continue Potassium Chloride [Klor-Con] 20 meq PO DAILY Losartan Potassium [Cozaar] 25 mg PO BID Furosemide [Lasix] 20 mg PO DAILY Famotidine 20 mg [Pepcid 20 MG] 20 mg PO BID Clopidogrel Bisulfate 75 mg [PLAVIX 75 MG Tablet] 75 mg PO DAILY Carvedilol [Coreg] 25 mg PO BID Calcium Carb,Cit/D3/Phytostrol [Citracal-D3 Plus Heart [facility] Tb] 1 each PO DAILY Aspirin EC 81 mg [Ecotrin 81 mg] 81 mg PO DAILY Amlodipine Besylate [Norvasc] 2.5 mg PO DAILY Albuterol 2.5 mg/3 ml Neb [Proventil 2.5 mg/3 ml Neb] 2.5 mg IH QID Albuterol/Ipratropium cc [Combivent Inhaler COMMON CANISTER] 3 ml IH DAILY Rosuvastatin Calcium [Crestor] 20 mg PO HS Multivitamin [Multiple Vitamins] 1 each PO DAILY Follow up with: MARIUSZ LINARES MD [Primary Care Provider] - 5 Days
[2021-05-25 13:14] VITALS: BP 102/57; PULSE 61; O2SAT 97
== END 2021-05-25 13:00 | disposition home or self-care (01) ==
LOC: MED SURG 12:41
PROVIDERS: ADMIT General Practice; ATTEND General Practice
DX: N39.0 Urinary tract infection, site not specified (principal); B95.2 Enterococcus as the cause of diseases classified elsewhere; I10 Essential (primary) hypertension; Z79.899 Other long term (current) drug therapy; E86.0 Dehydration; K52.9 Noninfective gastroenteritis and colitis, unspecified; Z20.828 Contact with and (suspected) exposure to other viral communicable diseases
CPT/HCPCS: 36415; 71046; 80053; 81001; 83880; 85025; 87077; 87086; 87186; 93005; 94640; 94760; G0378; U0003; J0456; J0696; J7609; A9270-GY

== ENCOUNTER 2021-10-15 17:24 | Inpatient (IN) | payer MEDICARE, BC ==
[2021-10-15] MEDS ORDERED: Zofran 4 MG/2 ML VIAL IV ONE (17:52)
[2021-10-15] MEDS ORDERED: DUONEB 0.5-3 MG/3 ml Neb IH ONE ×2 (17:54→18:34)
--- NOTE | 2021-10-15 18:01 | ERPHSYRPT ---
- History of Present Illness Time Seen by Provider: 10/15/21 17:39 Source: patient Exam Limitations: no limitations Patient Subjective Stated Complaint: Cough Triage Nursing Assessment: ,,,,, Physician History: 46 years old female with history of coronary artery disease status post CABG, COPD, hypertension presented in the ER with chief complaint of worsening cough since yesterday productive of clear to yellow sputum moderate in amount with some difficulty breathing. She also reports having nausea with some abdominal pain and couple of episodes of nonprojectile, nonbilious vomiting without hematemesis. Denies fever or chills. On EMS arrival patient oxygen saturation was in upper 80s, placed on 3 L oxygen and currently 95%. No fever or chills reported. Timing/Duration: yesterday, gradual onset, worse Activities at Onset: rest Severity of Dyspnea-Max: moderate Severity of Dyspnea-Current: mild Possible Cause: unknown cause Modifying Factors: Improves With: oxygen. Worsens With: coughing Associated Symptoms: cough, chest pain/discomfort, productive cough, tightness Allergies/Adverse Reactions: iodine Allergy (Severe, Verified 10/15/21 17:29) Hives Home Medications: Albuterol 2.5 mg/3 ml Neb [Proventil 2.5 mg/3 ml Neb] 2.5 mg IH QID 08/06/20 [History] Albuterol/Ipratropium cc [Combivent Inhaler COMMON CANISTER] 3 ml IH DAILY 08/06/20 [History] Amlodipine Besylate [Norvasc] 2.5 mg PO DAILY 08/06/20 [History] Aspirin EC 81 mg [Ecotrin 81 mg] 81 mg PO DAILY 08/06/20 [History] Calcium Carb,Cit/D3/Phytostrol [Citracal-D3 Plus [facility] Tb] 1 each PO DAILY 08/06/20 [History] Carvedilol [Coreg] 25 mg PO BID 08/06/20 [History] Clopidogrel Bisulfate 75 mg [PLAVIX 75 MG Tablet] 75 mg PO DAILY 08/06/20 [History] Famotidine 20 mg [Pepcid 20 MG] 20 mg PO BID 08/06/20 [History] Furosemide [Lasix] 20 mg PO DAILY 08/06/20 [History] Losartan Potassium [Cozaar] 25 mg PO BID 08/06/20 [History] Potassium Chloride [Klor-Con] 20 meq PO DAILY 08/06/20 [History] Rosuvastatin Calcium [Crestor] 20 mg PO HS 08/06/20 [History] Multivitamin [Multiple Vitamins] 1 each PO DAILY 05/23/21 [History] Hx Tetanus, Diphtheria Vaccination/Date Given: No (unknown) Hx Influenza Vaccination/Date Given: Yes Hx Pneumococcal Vaccination/Date Given: Yes Immunizations Up to Date: Yes Travel Risk - International Travel Have you traveled outside of the country in past 3 weeks: No - Coronavirus Screening Symptoms: Fever, Cough: New Onset, Shortness of Breath, Vomiting/Diarrhea, Loss of Taste or Smell, Headaches/Body Aches/Fatigue Close contact with a COVID-19 positive Pt in past 14-21 Days: No - Vaccine Status Have you recieved a Covid-19 vaccination: Yes [employer]: Moderna - Vaccination Dates Date of 2cond Vaccination (if applicable): 02/01/2021 - Review of Systems Constitutional: Fatigue, Weakness Eyes: No Symptoms Ears, Nose, & Throat: No Symptoms Respiratory: Cough, Dyspnea Cardiac: No Symptoms Abdominal/Gastrointestinal: Abdominal Pain, Nausea, Vomiting Genitourinary Symptoms: No Symptoms Musculoskeletal: Myalgias Skin: No Symptoms Neurological: No Symptoms Psychological: No Symptoms Endocrine: No Symptoms Hematologic/Lymphatic: No Symptoms Immunological/Allergic: No Symptoms - Past Medical History Pertinent Past Medical History: Yes Neurological History: No Pertinent History ENT History: Cataracts Cardiac History: Coronary Artery Disease, High Cholesterol, Hypertension Respiratory History: COPD, Emphysema, Pneumonia Endocrine Medical History: No Pertinent History Musculoskeletal History: Arthritis, Osteoarthritis GI Medical History: GERD, Polyps History: No Pertinent History Psycho-Social History: No Pertinent History Female Reproductive Disorders: No Pertinent History - Past Surgical History Past Surgical History: Yes Neuro Surgical History: No Pertinent History Cardiac: CABG Respiratory: No Pertinent History Gastrointestinal: Appendectomy, Cholecystectomy Genitourinary: No Pertinent History Musculoskeletal: Orthopedic Surgery Female Surgical History: Hysterectomy, Tubal Ligation Other Surgical History: 2 screws in lower back,carpal tunnel release to right wrist - Social History Smoking Status: Former smoker Exposure to second hand smoke: No Drug Use: none Patient Lives Alone: Yes - Female History Hx Now: No - Nursing Vital Signs Nursing Vital Signs: Initial Vital Signs Temperature 102.7 F 10/15/21 17:29 Pulse Rate 85 10/15/21 17:29 Respiratory Rate 20 10/15/21 17:29 Blood Pressure 128/76 10/15/21 17:29 O2 Sat by Pulse Oximetry 97 10/15/21 17:29 Pain Scale Pain Intensity 4 - Physical Exam General Appearance: no apparent distress, alert Eye Exam: PERRL/EOMI, eyes nml inspection Ears, Nose, Throat Exam: hearing grossly normal, nasal congestion Neck Exam: normal inspection, non-tender, supple, full range of motion Respiratory Exam: diminished breath sounds, crackles/rales, wheezing Cardiovascular/Chest Exam: normal heart sounds, regular rate/rhythm Abdominal/Gastrointestinal Exam: soft, normal bowel sounds, No tenderness Extremity Exam: non-tender, normal range of motion Neurologic Exam: alert, oriented x 3, cooperative Skin Exam: normal color SpO2 Interpretation: normal, O2 applied SpO2: 97 O2 Delivery: Nasal Cannula (3L) Ordered Tests: Active Orders 24 hr Category Date Time Status EKG-ER Only STAT Care 10/15/21 17:52 Active IV Insertion STAT Care 10/15/21 17:52 Active NPO (ED) STAT Care 10/15/21 17:52 Active ABDOMEN AND PELVIS W/0 CONTRAS [CT] Stat Exams 10/15/21 17:53 Completed CHEST WITHOUT CONTRAST [CT] Stat Exams 10/15/21 17:53 Completed BLOOD CULTURE Stat Lab 10/15/21 18:45 Received CBC W DIFF Stat Lab 10/15/21 19:15 Completed CMP Stat Lab 10/15/21 19:15 Completed LIPASE Stat Lab 10/15/21 19:15 Completed NT PRO BNP Stat Lab 10/15/21 19:15 Completed PROCALCITONIN Stat Lab 10/15/21 19:15 Completed TROPONIN Q3H Lab 10/15/21 19:15 Completed TROPONIN Q3H Lab 10/15/21 21:05 Completed TROPONIN Q3H Lab 10/16/21 00:00 Ordered TROPONIN Q3H Lab 10/16/21 03:00 Ordered TROPONIN Q3H Lab 10/16/21 06:00 Ordered Transfer Order Routine Transfer 10/15/21 Ordered Medication Summary Generic Name Dose Route Start Last Admin Trade Name Freq PRN Reason Stop Dose Admin Sodium Chloride 1,000 mls @ 100 mls/hr 10/15/21 18:00 10/15/21 18:55 Sodium Chloride 0.9% 1000 Ml IV 11/14/21 17:59 100 mls/hr .Q10H MICKY Administration Remdesivir 200 mg/ Sodium 250 mls @ 125 mls/hr 10/15/21 21:10 10/15/21 22:21 Chloride IV 10/15/21 23:09 Not Given ONCE ONE Oseltamivir Phosphate 75 mg 10/16/21 10:00 Oseltamivir 75 Mg Cap PO 10/21/21 09:59 BID MICKY Discontinued Medications Generic Name Dose Route Start Last Admin Trade Name Jacqueline PRN Reason Stop Dose Admin Acetaminophen 650 mg 10/15/21 19:50 10/15/21 19:52 Acetaminophen 325 Mg Tablet PO 10/15/21 19:51 650 mg STAT STA Administration Acetaminophen Confirm 10/15/21 19:51 Acetaminophen 325 Mg Tablet Administered 10/15/21 19:52 Dose 650 mg .ROUTE .STK-MED ONE Albuterol/Ipratropium 3 ml 10/15/21 17:54 10/15/21 18:39 Ipratropium/Albuterol Sulfate 3 Ml Ampul.Neb IH 10/15/21 17:55 3 ml STAT ONE Administration Albuterol/Ipratropium Confirm 10/15/21 18:34 Ipratropium/Albuterol Sulfate 3 Ml Ampul.Neb Administered 10/15/21 18:35 Dose 3 ml IH .STK-MED ONE Dexamethasone Sodium Phosphate 6 mg 10/15/21 21:10 10/15/21 21:56 Dexamethasone Sod Phosphate 10 Mg/Ml IV 10/15/21 21:11 6 mg STAT ONE Administration Dexamethasone Sodium Phosphate Confirm 10/15/21 21:56 Dexamethasone Sod Phosphate 10 Mg/Ml Administered 10/15/21 21:57 Dose 10 mg .ROUTE .STK-MED ONE Ondansetron HCl 4 mg 10/15/21 17:52 10/15/21 18:56 Ondansetron Hcl 4 Mg/2 Ml Vial IV 10/15/21 17:53 4 mg STAT ONE Administration Ondansetron HCl Confirm 10/15/21 18:42 Ondansetron Hcl 4 Mg/2 Ml Vial Administered 10/15/21 18:43 Dose 4 mg .ROUTE .STK-MED ONE Lab/Rad Data: Laboratory Result Diagrams 10/15/21 19:15 10/15/21 19:15 Laboratory Results 10/15/21 10/15/21 10/15/21 Range/Units 21:14 21:05 19:15 WBC (4.0-10.5) K/mm3 RBC (4.1-5.4) M/mm3 Hgb (12.0-16.0) gm/dl Hct (35-47) % MCV (78-100) fl MCH (26-32) pg MCHC (32-36) g/dl RDW (11.5-14.0) % Plt Count (150-450) K/mm3 MPV (7.5-11.0) fl Gran % (36.0-66.0) % Eos # (Auto) (0-0.5) Absolute Lymphs (auto) (1.0-4.6) Absolute Monos (auto) (0.0-1.3) Lymphocytes % (24.0-44.0) % Monocytes % (0.0-12.0) % Eosinophils % (0.00-5.0) % Basophils % (0.0-0.4) % Absolute Granulocytes (1.4-6.9) Basophils # (0-0.4) Sodium (137-145) mmol/L Potassium (3.5-5.1) mmol/L Chloride (98-107) mmol/L Carbon Dioxide (22-30) mmol/L Anion Gap (5-15) MEQ/L BUN (7-17) mg/dL Creatinine (0.52-1.04) mg/dL Estimated GFR ML/MIN Glucose (74-106) mg/dL Calcium (8.4-10.2) mg/dL Total Bilirubin (0.2-1.3) mg/dL AST (14-36) U/L ALT (0-35) U/L Alkaline Phosphatase (38-126) U/L Troponin I < 0.012 (0.000-0.034) ng/mL NT-Pro-B Natriuret Pep (0-1800) pg/mL Serum Total Protein (6.3-8.2) g/dL Albumin (3.5-5.0) g/dL Lipase (23-300) U/L Procalcitonin 0.075 (0.030-0.080) ng/mL Influenza Type A Ag POSITIVE (NEGATIVE) Influenza Type B Ag NEGATIVE (NEGATIVE) RSV (PCR) NEGATIVE (Negative) SARS-CoV-2 (PCR) NEGATIVE (NEGATIVE) 10/15/21 10/15/21 10/15/21 Range/Units 19:15 19:15 19:15 WBC 9.0 (4.0-10.5) K/mm3 RBC 3.49 L (4.1-5.4) M/mm3 Hgb 11.7 L (12.0-16.0) gm/dl Hct 34.6 L (35-47) % MCV 99.1 (78-100) fl MCH 33.5 H (26-32) pg MCHC 33.8 (32-36) g/dl RDW 12.4 (11.5-14.0) % Plt Count 229 (150-450) K/mm3 MPV 8.5 (7.5-11.0) fl Gran % 75.6 H (36.0-66.0) % Eos # (Auto) 0.04 (0-0.5) Absolute Lymphs (auto) 0.85 L (1.0-4.6) Absolute Monos (auto) 1.28 (0.0-1.3) Lymphocytes % 9.4 L (24.0-44.0) % Monocytes % 14.2 H (0.0-12.0) % Eosinophils % 0.4 (0.00-5.0) % Basophils % 0.4 (0.0-0.4) % Absolute Granulocytes 6.80 (1.4-6.9) Basophils # 0.04 (0-0.4) Sodium 129 L (137-145) mmol/L Potassium 4.1 (3.5-5.1) mmol/L Chloride 97 L (98-107) mmol/L Carbon Dioxide 23 (22-30) mmol/L Anion Gap 12.7 (5-15) MEQ/L BUN 12 (7-17) mg/dL Creatinine 0.89 (0.52-1.04) mg/dL Estimated GFR > 60.0 ML/MIN Glucose 99 (74-106) mg/dL Calcium 8.7 (8.4-10.2) mg/dL Total Bilirubin 0.40 (0.2-1.3) mg/dL AST 30 (14-36) U/L ALT 13 (0-35) U/L Alkaline Phosphatase 59 (38-126) U/L Troponin I < 0.012 (0.000-0.034) ng/mL NT-Pro-B Natriuret Pep 1190 (0-1800) pg/mL Serum Total Protein 6.1 L (6.3-8.2) g/dL Albumin 3.7 (3.5-5.0) g/dL Lipase 84 (23-300) U/L Procalcitonin (0.030-0.080) ng/mL Influenza Type A Ag (NEGATIVE) Influenza Type B Ag (NEGATIVE) RSV (PCR) (Negative) SARS-CoV-2 (PCR) (NEGATIVE) - Progress Progress: improved Air Movement: fair Progress Note: 10/15/21 21:11 76 years old is evaluated for worsening shortness of breath. She is on 3 L now with saturation around 95%. Normal white count, grossly unremarkable chemistries except for mildly low sodium and bilateral airspace disease consistent with Covid. She has a procalcitonin 0.7 which is normal. Viral pneumonia, given Decadron. Discussed with Dr. Jensne and patient is being admitted. We will hold off on antibiotics. 10/15/21 22:23 Patient has positive influenza A and started on Tamiflu. Blood Culture(s) Obtained: Yes Antibiotics given: No Discussed with : Eric Will see patient in: hospital (observation) Counseled pt/family regarding: lab results, diagnosis, rad results - Departure Departure Disposition: Observation Clinical Impression: Bilateral pneumonia, Influenza A Respiratory failure Qualifiers: Chronicity: acute Respiratory failure complication: hypoxia Qualified Code(s): J96.01 - Acute respiratory failure with hypoxia Condition: Stable Critical Care Time: No Referrals: MARIUSZ LINARES MD [Primary Care Provider] - Follow up/PCP as directed
[2021-10-15] MEDS ORDERED: Zofran 4 MG/2 ML VIAL ONE (18:42)
[2021-10-15] MEDS: Sodium Chloride 0.9% 1000 ML 1,000 ML IV SCH (18:55)
[2021-10-15 19:24] LABS: Basophil (Absolute #) 0.04 (0-0.4); Eosinophil % 0.4 % (0.00-5.0); Eosinophil (Absolute #) 0.04 (0-0.5); Hematocrit 34.6 % (35-47); Hemoglobin 11.7 gm/dl (12.0-16.0); Lymphocyte (Absolute #) 0.85 (1.0-4.6); Lymphocytes % 9.4 % (24.0-44.0); Mean Cell Volume 99.1 fl (78-100); Mean Corpuscular Hemoglobin 33.5 pg (26-32); Mean Corpuscular Hgb Concent. 33.8 g/dl (32-36); Mean Platelet Volume 8.5 fl (7.5-11.0); Monocyte (Absolute #) 1.28 (0.0-1.3); Monocytes % 14.2 % (0.0-12.0); Neutrophil % 75.6 % (36.0-66.0); Platelet Count 229 K/mm3 (150-450); Red Blood Count 3.49 M/mm3 (4.1-5.4); Red Cell Distribution Width 12.4 % (11.5-14.0)
[2021-10-15 19:45] LABS: ALBUMIN 3.7 g/dL (3.5-5.0); ALKALINE PHOSPHATASE 59 U/L (38-126); ANION GAP 12.7 MEQ/L (5-15); BLOOD UREA NITROGEN 12 mg/dL (7-17); CHLORIDE 97 mmol/L (98-107); Calcium 8.7 mg/dL (8.4-10.2); Carbon Dioxide 23 mmol/L (22-30); Creatinine 1 0.89 mg/dL (0.52-1.04); EST GLOMERULAR FILTRATION RATE > 60.0 ML/MIN; Glucose 99 mg/dL (74-106); LIPASE 84 U/L (23-300); NT PRO BNP 1190 pg/mL (0-1800); Potassium 4.1 mmol/L (3.5-5.1); SGOT/AST 30 U/L (14-36); SGPT/ALT 13 U/L (0-35); SODIUM 129 mmol/L (137-145); Total Protein 6.1 g/dL (6.3-8.2)
[2021-10-15] MEDS ORDERED: TYLENOL 325 MG PO STA (19:50)
[2021-10-15] MEDS ORDERED: TYLENOL 325 MG ONE (19:51)
[2021-10-15] MEDS ORDERED: REMDESIVIR 200 MG in Sodium Chloride 0.9% 250 ML 250 ML IV ONE (21:10)
[2021-10-15] MEDS ORDERED: DECADRON 10MG INJ. IV ONE (21:10)
--- NOTE | 2021-10-15 21:51 | XRAY ---
Indication: Cough and vomiting. Multiple contiguous axial images obtained through the abdomen and pelvis without contrast. Comparison: October 04, 2017. CT chest reported separately. New L5-S1 fusion surgery with extreme beam artifact from bilateral posterior fusion hardware limits these levels. Noncontrasted stomach and bowel loops appear nonobstructed. Stable small duodenal diverticulum. Again scattered descending/sigmoid diverticulosis, cholecystectomy, and hysterectomy. No free fluid/air. Remaining liver, pancreas, spleen, adrenal glands, kidneys, ureters, and bladder are unremarkable for noncontrast exam. There remains heavy scattered aortoiliac calcifications without AAA. Remaining osseous structures intact again with mild osteopenia and degenerative changes throughout the spine. Impression: 1. New L5-S1 spinal fusion hardware beam artifact. 2. Again duodenal diverticulum, colonic diverticulosis, heavy arteriosclerotic disease, and chronic bony findings. 3. Remaining CT abdomen/pelvis without contrast exam is negative. Comment: Preliminary interpretation made by C. No critical discrepancy.
--- NOTE | 2021-10-15 21:52 | XRAY ---
Indication: Cough and vomiting. Multiple contiguous axial images obtained through the chest without contrast. Comparison: October 09, 2016. Lungs demonstrates new minimal bilateral patchy airspace disease without consolidation/large effusion. Incidental 1 cm right lower lobe calcified granuloma. Heart not enlarged with interval CABG surgery. Aorta remains mildly arteriosclerotic without aneurysm. No pathologic mediastinal/hilar lymphadenopathy. Bony thorax intact with new sternotomy wires. CT abdomen/pelvis reported separately. Impression: 1. New bilateral patchy airspace disease without consolidation/large effusion. 2. Incidental CABG surgery, chronic bony findings, and old granulomatous disease. Comment: Preliminary interpretation made by C. No critical discrepancy.
[2021-10-15] MEDS ORDERED: DECADRON 10MG INJ. ONE (21:56)
[2021-10-15 22:17] LABS: SARS-CoV-2 Xpert Express NEGATIVE (NEGATIVE)
[2021-10-15 22:18] LABS: INFLUENZA A POSITIVE (NEGATIVE); INFLUENZA B NEGATIVE (NEGATIVE); RESPIRATORY SYNCTIAL VIRUS NEGATIVE (Negative)
[2021-10-15] MEDS ORDERED: Tamiflu 75MG Capsule PO ONE (23:17)
[2021-10-15] MEDS: Tamiflu 75MG Capsule PO SCH (23:18)
[2021-10-15] MEDS ORDERED: Zofran 4 MG/2 ML VIAL IV PRN (23:47)
[2021-10-15] MEDS ORDERED: TYLENOL 325 MG PO PRN (23:47)
[2021-10-16] MEDS ORDERED: DUONEB 0.5-3 MG/3 ml Neb IH PRN (00:03)
[2021-10-16 03:11] LABS: Absolute Neutrophil Ct (ANC) 7.39 (1.4-6.9); Basophil (Absolute #) 0.01 (0-0.4); Eosinophil (Absolute #) 0 (0-0.5); Hematocrit 35.3 % (35-47); Hemoglobin 11.8 gm/dl (12.0-16.0); Lymphocyte (Absolute #) 0.63 (1.0-4.6); Lymphocytes % 7.5 % (24.0-44.0); Mean Cell Volume 100.3 fl (78-100); Mean Corpuscular Hemoglobin 33.5 pg (26-32); Mean Corpuscular Hgb Concent. 33.4 g/dl (32-36); Mean Platelet Volume 8.5 fl (7.5-11.0); Monocyte (Absolute #) 0.41 (0.0-1.3); Monocytes % 4.9 % (0.0-12.0); Neutrophil % 87.5 % (36.0-66.0); Platelet Count 219 K/mm3 (150-450); Red Blood Count 3.52 M/mm3 (4.1-5.4); Red Cell Distribution Width 12.6 % (11.5-14.0)
[2021-10-16 03:12] LABS: White Blood Count 8.4 K/mm3 (4.0-10.5)
[2021-10-16 03:34] LABS: ALBUMIN 3.7 g/dL (3.5-5.0); ALKALINE PHOSPHATASE 66 U/L (38-126); ANION GAP 12.9 MEQ/L (5-15); BLOOD UREA NITROGEN 14 mg/dL (7-17); CHLORIDE 98 mmol/L (98-107); Calcium 8.7 mg/dL (8.4-10.2); Carbon Dioxide 20 mmol/L (22-30); Creatinine 1 0.86 mg/dL (0.52-1.04); EST GLOMERULAR FILTRATION RATE > 60.0 ML/MIN; Glucose 136 mg/dL (74-106); Potassium 4.3 mmol/L (3.5-5.1); SGOT/AST 48 U/L (14-36); SGPT/ALT 19 U/L (0-35); SODIUM 127 mmol/L (137-145); Total Protein 6.2 g/dL (6.3-8.2)
[2021-10-16] MEDS: Sodium Chloride 0.9% 1000 ML 1,000 ML IV SCH ×3 (04:01→23:04)
[2021-10-16] MEDS ORDERED: ADVAIR/WIXELLA 250-50 DISKUS 14 DOSE IH SCH ×2 (07:00→09:00)
[2021-10-16] MEDS: DUONEB 0.5-3 MG/3 ml Neb IH SCH ×4 (07:50→18:20)
[2021-10-16] MEDS: ENOXAPARIN SODIUM SQ SCH (10:41)
[2021-10-16] MEDS: Tamiflu 75MG Capsule PO SCH ×2 (10:42→21:25)
[2021-10-16] MEDS: HUMALOG SQ PRN (12:14)
[2021-10-16] MEDS: Cozaar 50 MG PO SCH ×2 (13:53→21:24)
[2021-10-16] MEDS: COREG 12.5 MG PO SCH ×2 (13:53→21:24)
[2021-10-16] MEDS: THERAGRAN MULTIVITAMIN PO SCH (13:53)
[2021-10-16] MEDS: NORVASC 5 MG PO SCH (13:55)
[2021-10-16] MEDS: Klor Con 10 MEQ PO SCH (13:56)
[2021-10-16] MEDS: solu-MEDROL IV SCH ×2 (13:57→21:24)
[2021-10-16] MEDS: HYDROCODONE-CHLORPHEN ER SUSP PO PRN (13:57)
[2021-10-16] MEDS ORDERED: solu-MEDROL 80 MG, Sterile H2O 10 ml 2 ML IV SCH ×2 (14:00)
[2021-10-16] MEDS ORDERED: PROVENTIL 2.5 MG/3 ML NEB IH SCH (17:00)
[2021-10-16] MEDS ORDERED: Advair Hfa 115/21 Common canister IH SCH (19:00)
[2021-10-16] MEDS: Advair Hfa 115/21 Common canister IH SCH (20:26)
[2021-10-16] MEDS: Pepcid 20 MG PO SCH (21:24)
[2021-10-16] MEDS: Calcium 500MG W/Vit D Tablet PO SCH (21:24)
[2021-10-16] MEDS: ZOCOR 20MG PO SCH (21:25)
[2021-10-16] MEDS ORDERED: COP PO SCH (22:00)
[2021-10-16] MEDS ORDERED: NON-FORMULARY ITEM (Rosuvastatin Calcium [Crestor] 20 MG Tablet) PO SCH (22:00)
[2021-10-16] MEDS ORDERED: MANG PO SCH (22:00)
[2021-10-16] MEDS ORDERED: [UNRECOGNIZED DRUG - OTHER] PO SCH (22:00)
[2021-10-16] MEDS ORDERED: CAL PO SCH (22:00)
[2021-10-16] MEDS ORDERED: [UNRECOGNIZED DRUG - OTHER] IH SCH (22:00)
[2021-10-16] MEDS ORDERED: D3 PO SCH (22:00)
[2021-10-16] MEDS ORDERED: MAG11 PO SCH (22:00)
[2021-10-16] MEDS ORDERED: ZINC PO SCH (22:00)
[2021-10-16] MEDS ORDERED: NON-FORMULARY ITEM (Losartan Potassium [Cozaar] 25 MG Tablet) PO SCH (22:00)
[2021-10-16] MEDS ORDERED: BOR PO SCH (22:00)
[2021-10-16] MEDS ORDERED: NON-FORMULARY ITEM (Carvedilol [Coreg] 25 MG Tablet) PO SCH (22:00)
[2021-10-17] MEDS: solu-MEDROL IV SCH ×3 (05:26→20:36)
[2021-10-17] MEDS: HYDROCODONE-CHLORPHEN ER SUSP PO PRN (05:26)
[2021-10-17 06:51] LABS: ALBUMIN 3.1 g/dL (3.5-5.0); ALKALINE PHOSPHATASE 52 U/L (38-126); ANION GAP 8.6 MEQ/L (5-15); BLOOD UREA NITROGEN 12 mg/dL (7-17); CHLORIDE 103 mmol/L (98-107); Calcium 8.1 mg/dL (8.4-10.2); Carbon Dioxide 21 mmol/L (22-30); Creatinine 1 0.59 mg/dL (0.52-1.04); EST GLOMERULAR FILTRATION RATE > 60.0 ML/MIN; Glucose 144 mg/dL (74-106); Potassium 4.4 mmol/L (3.5-5.1); SGOT/AST 28 U/L (14-36); SGPT/ALT 15 U/L (0-35); SODIUM 129 mmol/L (137-145); Total Protein 5.3 g/dL (6.3-8.2)
[2021-10-17] MEDS: DUONEB 0.5-3 MG/3 ml Neb IH SCH ×4 (06:59→19:17)
[2021-10-17 07:15] LABS: Absolute Neutrophil Ct (ANC) 7.55 (1.4-6.9); Basophil (Absolute #) 0 (0-0.4); Eosinophil % 0.1 % (0.00-5.0); Eosinophil (Absolute #) 0.01 (0-0.5); Hematocrit 32.1 % (35-47); Hemoglobin 10.5 gm/dl (12.0-16.0); Lymphocyte (Absolute #) 1.25 (1.0-4.6); Lymphocytes % 13.5 % (24.0-44.0); Mean Corpuscular Hemoglobin 32.7 pg (26-32); Mean Corpuscular Hgb Concent. 32.7 g/dl (32-36); Mean Platelet Volume 9.1 fl (7.5-11.0); Monocyte (Absolute #) 0.42 (0.0-1.3); Monocytes % 4.6 % (0.0-12.0); Neutrophil % 81.8 % (36.0-66.0); Platelet Count 227 K/mm3 (150-450); Red Blood Count 3.21 M/mm3 (4.1-5.4); Red Cell Distribution Width 12.3 % (11.5-14.0); White Blood Count 9.2 K/mm3 (4.0-10.5)
[2021-10-17] MEDS: Advair Hfa 115/21 Common canister IH SCH ×2 (07:19→19:18)
[2021-10-17] MEDS: Sodium Chloride 0.9% 1000 ML 1,000 ML IV SCH ×2 (09:41→20:35)
[2021-10-17] MEDS: Tamiflu 75MG Capsule PO SCH ×2 (09:42→20:37)
[2021-10-17] MEDS: PLAVIX 75 MG Tablet PO SCH (09:42)
[2021-10-17] MEDS: ECOTRIN 81 MG PO SCH (09:42)
[2021-10-17] MEDS: COREG 12.5 MG PO SCH ×2 (09:42→20:37)
[2021-10-17] MEDS: THERAGRAN MULTIVITAMIN PO SCH (09:42)
[2021-10-17] MEDS: Cozaar 50 MG PO SCH ×2 (09:42→20:36)
[2021-10-17] MEDS: Pepcid 20 MG PO SCH ×2 (09:42→20:37)
[2021-10-17] MEDS: Klor Con 10 MEQ PO SCH (09:42)
[2021-10-17] MEDS: Calcium 500MG W/Vit D Tablet PO SCH ×2 (09:42→20:36)
[2021-10-17] MEDS: NORVASC 5 MG PO SCH (09:43)
[2021-10-17] MEDS: ENOXAPARIN SODIUM SQ SCH (09:43)
[2021-10-17] MEDS: LASIX 20 MG PO SCH (09:43)
[2021-10-17] MEDS ORDERED: NON-FORMULARY ITEM (Amlodipine Besylate [Norvasc] 2.5 MG Tablet) PO SCH (10:00)
[2021-10-17] MEDS ORDERED: NON-FORMULARY ITEM (Potassium Chloride [Klor-Con] 20 MEQ Packet) PO SCH (10:00)
[2021-10-17] MEDS ORDERED: NON-FORMULARY ITEM (Multivitamin [Multiple Vitamins] 1 EACH Tablet) PO SCH (10:00)
[2021-10-17] MEDS ORDERED: Fosamax 70 MG PO SCH (10:00)
--- NOTE | 2021-10-17 14:08 | HP ---
CHIEF COMPLAINT: Cough. HISTORY OF PRESENT ILLNESS: The patient is a 76-year-old white female who reports that she began becoming sick about three days ago after a visit from her family from [place]. She reports a 6 -year-old was sick. The patient was seen in the emergency room, swabbed and found positive for influenza A. The patient was admitted to the hospital for evaluation and management. PAST MEDICAL/SURGICAL HISTORY: She does have a past medical history significant for chronic obstructive pulmonary disease and exacerbations and hospitalizations for the same. She also has issues with coronary artery disease, hyperlipidemia, hypertension, osteoarthritis for which she does take some tramadol occasionally for pain. Gastroesophageal reflux disease, polyps. She has had appendectomy, cholecystectomy, hysterectomy, tubal ligation, two screws in lower back, carpal tunnel release on the right side. HOME MEDICATIONS: Proventil 2.5 mg, Combivent Inhaler 3 ml, Norvasc 2.5 mg daily, aspirin 81 mg daily, Citracal 1 daily, carvedilol 25 b.i.d., Coreg 25 mg b.i.d., Plavix 75 mg daily, Pepcid 20 mg b.i.d., Lasix 20 mg daily, losartan 25 mg b.i.d., Klor-Con20 mEq daily, Crestor 20 mg h.s., multivitamin 1 daily. ALLERGIES: IODINE. PHYSICAL EXAMINATION: Revealed a well-nourished, well-developed VITAL SIGNS: The patient's vital signs on admission showed her temperature 102.7F, pulse 85, respiratory rate 20 and blood pressure 128/76. O2 saturation was 97%. HEENT: Normocephalic, atraumatic. Pupils equal round reactive to light. Extraocular movements intact. Oropharynx is pink and moist. NECK: Supple without lymphadenopathy, thyromegaly or JVD. CHEST: Reveals diminished breath sounds, crackles, wheezing were noted. The patient did receive Decadron in the emergency room as well as nebulizer which did make her feel better. LAB DATA AND TESTS: The patient's laboratory values otherwise showed again her positive for influenza A. Negative respiratory syncytial virus and COVID. Troponin was less than 0.012. Her sugars were 99, BUN 12, creatinine 0.89. Sodium slightly low at 129. Liver enzymes were normal. ProBNP is in the normal range at 1,190. Procalcitonin was not elevated at 0.075. Her white count was 9,000, hemoglobin 11.7, PLT count 229,000. Neutrophils were increased at 75.6%. ASSESSMENT: A patient with influenza, exacerbation of chronic obstructive pulmonary disease. She has been admitted to the hospital for Tamiflu treatment, IV fluids, nebulizer treatments and will place her on Solu-Medrol 80 mg IV every 8 hours at the present time and place her in respiratory isolation. Continue monitoring her O2 saturations to be sure there is no desaturation events.
[2021-10-17] MEDS: ZOCOR 20MG PO SCH (20:36)
[2021-10-18] MEDS ORDERED: Fosamax 70 MG PO SCH (06:00)
[2021-10-18] MEDS: solu-MEDROL IV SCH ×3 (06:11→21:31)
[2021-10-18] MEDS: Sodium Chloride 0.9% 1000 ML 1,000 ML IV SCH (06:12)
[2021-10-18] MEDS: DUONEB 0.5-3 MG/3 ml Neb IH SCH ×4 (06:41→19:17)
[2021-10-18] MEDS: Advair Hfa 115/21 Common canister IH SCH ×2 (06:42→19:17)
[2021-10-18] MEDS: Cozaar 50 MG PO SCH ×2 (10:59→21:30)
[2021-10-18] MEDS: THERAGRAN MULTIVITAMIN PO SCH (10:59)
[2021-10-18] MEDS: Tamiflu 75MG Capsule PO SCH ×2 (10:59→21:31)
[2021-10-18] MEDS: Klor Con 10 MEQ PO SCH (10:59)
[2021-10-18] MEDS: COREG 12.5 MG PO SCH ×2 (10:59→21:30)
[2021-10-18] MEDS: ECOTRIN 81 MG PO SCH (10:59)
[2021-10-18] MEDS: Calcium 500MG W/Vit D Tablet PO SCH ×2 (11:00→21:30)
[2021-10-18] MEDS: Pepcid 20 MG PO SCH ×2 (11:00→21:31)
[2021-10-18] MEDS: ENOXAPARIN SODIUM SQ SCH (11:00)
[2021-10-18] MEDS: NORVASC 5 MG PO SCH (11:00)
[2021-10-18] MEDS: LASIX 20 MG PO SCH (11:00)
[2021-10-18] MEDS: PLAVIX 75 MG Tablet PO SCH (11:00)
[2021-10-18] MEDS: HYDROCODONE-CHLORPHEN ER SUSP PO PRN (11:00)
--- NOTE | 2021-10-18 12:54 | PCM.NOTE ---
Date and Time: 10/17/21 1252 Subjective Assessment: doing ok - Review of Systems Constitutional: No Fever, No Chills Eyes: No Symptoms Ears, Nose, & Throat: No Symptoms Respiratory: Cough, Short Of Breath Cardiac: No Chest Pain, No Edema, No Syncope Abdominal/Gastrointestinal: No Abdominal Pain, No Nausea, No Vomiting, No Diarrhea Genitourinary Symptoms: No Dysuria Musculoskeletal: No Back Pain, No Neck Pain Skin: No Rash Neurological: No Dizziness, No Focal Weakness, No Sensory Changes Psychological: No Symptoms Endocrine: No Symptoms Hematologic/Lymphatic: No Symptoms Immunological/Allergic: No Symptoms Objective Exam General Appearance: no apparent distress, alert Neurologic Exam: alert, oriented x 3, cooperative, normal mood/affect, nml cerebellar function, sensation nml, No motor deficits Skin Exam: normal color, warm, dry Eye Exam: PERRL, EOMI, eyes nml inspection Ears, Nose, Throat Exam: normal ENT inspection, pharynx normal, moist mucous membranes Neck Exam: normal inspection, non-tender, supple, full range of motion Respiratory Exam: diminished breath sounds, crackles/rales, rhonchi, wheezing, No respiratory distress Cardiovascular Exam: regular rate/rhythm, normal heart sounds Gastrointestinal/Abdomen Exam: soft, No tenderness, No mass Extremity Exam: normal inspection, normal range of motion Back Exam: normal inspection, normal range of motion, No CVA tenderness, No vertebral tenderness Pelvic Exam: deferred Rectal Exam: deferred OBJECTIVE DATA Vital Signs: Vital Signs - 24 hr Temp Pulse Resp BP Pulse Ox 10/18/21 11:28 86 18 94 L 10/18/21 07:37 98.1 F 74 20 145/72 100 10/18/21 07:17 85 18 94 L 10/18/21 04:00 97.1 F 67 18 130/67 95 10/17/21 23:49 97.7 F 68 16 138/68 95 10/17/21 19:50 97.5 F 64 16 133/61 96 10/17/21 19:18 64 20 96 10/17/21 16:00 97.6 F 58 L 20 121/81 95 10/17/21 14:31 63 18 98 Pain Assessment - Last Documented Pain Intensity 0 Intake and Output: Intake & Output 10/16/21 10/17/21 10/18/21 10/19/21 11:59 11:59 11:59 11:59 Intake Total 277 7867 4472 Output Total 1600 1400 Balance 480 1996 1064 Weight 65.5 kg 68.8 kg 69.2 kg Lab Results: Lab Results-Last 24 Hours 10/17/21 10/17/21 10/18/21 Range/Units 16:49 22:08 06:48 POC Glucometer 105 124 H 120 H (74 to 106) mg/dL 10/18/21 Range/Units 11:16 POC Glucometer 201 H (74 to 106) mg/dL Multi-Disciplinary Progress Notes: Multi-Disciplinary Progress Notes 10/18/21 11:14 Case Management Note by Jennifer Laguerre S/W PATIENT- SHE CONTINUES TO DENY ANY NEW NEEDS REGARDING DC AT THIS TIME. SHE WAS ONCE AGAIN OFFERED HHC BUT PREFERS TO HOLD OFF ON THAT AT THIS TIME Initialized on 10/18/21 11:14 - END OF NOTE Assessment/Plan (1) Bilateral pneumonia Current Visit: Yes Status: Acute Qualifiers: Pneumonia type: due to unspecified organism Lung location: lower lobe of lung Qualified Code(s): J18.9 - Pneumonia, unspecified organism Assessment & Plan: Last Vital Signs Temp 98.1 F 10/18/21 07:37 Pulse 86 10/18/21 11:28 Resp 18 10/18/21 11:28 BP 145/72 10/18/21 07:37 Pulse Ox 94 L 10/18/21 11:28 Allergies iodine Allergy (Severe, Verified 10/15/21 17:29) Hives Active Medications Acetaminophen (Acetaminophen 325 Mg Tablet) 650 mg PO Q4H PRN PRN PRN Reason: PAIN AND/OR FEVER Stop: 11/14/21 23:46 Albuterol/Ipratropium (Ipratropium/Albuterol Sulfate 3 Ml Ampul.Neb) 3 ml IH QIDRT MICKY Stop: 11/15/21 06:59 Last Admin: 10/18/21 11:28 Dose: 3 ml Albuterol/Ipratropium (Ipratropium/Albuterol Sulfate 3 Ml Ampul.Neb) 3 ml IH Q4HPRN PRN PRN Reason: SHORTNESS OF BREATH/WHEEZING Stop: 11/15/21 00:02 Last Admin: 10/16/21 00:11 Dose: 3 ml Alendronate Sodium (Alendronate Sodium 70 Mg Tablet) 70 mg PO Q7D MICKY Stop: 11/17/21 05:59 Last Admin: 10/18/21 06:11 Dose: 70 mg Amlodipine Besylate (Amlodipine Besylate 5 Mg Tablet) 2.5 mg PO DAILY MICKY Stop: 11/15/21 13:59 Last Admin: 10/18/21 11:00 Dose: 2.5 mg Aspirin (Aspirin 81 Mg Tablet.Ec) 81 mg PO DAILY MICKY Stop: 11/16/21 09:59 Last Admin: 10/18/21 10:59 Dose: 81 mg Calcium Carbonate (Calcium Carbonate 500 Mg/Vitamin D 1 Tab Tablet) 1 tab PO BID MICKY Stop: 11/15/21 21:59 Last Admin: 10/18/21 11:00 Dose: 1 tab Carvedilol (Carvedilol 12.5 Mg Tablet) 25 mg PO BID MICKY Stop: 11/15/21 13:59 Last Admin: 10/18/21 10:59 Dose: 25 mg Chlorphenir/Hydrocodone Polistirex (Hydrocodone/Chlorphen P-Stirex 1 Ml Nolvia.Er.12h) 5 ml PO [id number] PRN PRN Reason: COUGH Stop: 11/15/21 11:06 Last Admin: 10/18/21 11:00 Dose: 5 ml Clopidogrel Bisulfate (Clopidogrel Bisulfate 75 Mg Tablet) 75 mg PO DAILY MICKY Stop: 11/16/21 09:59 Last Admin: 10/18/21 11:00 Dose: 75 mg Enoxaparin Sodium (Enoxaparin Sodium 40 Mg/0.4 Ml Syringe) 40 mg SQ DAILY MICKY Stop: 11/15/21 09:59 Last Admin: 10/18/21 11:00 Dose: 40 mg Famotidine (Famotidine 20 Mg Tablet) 20 mg PO BID MICKY Stop: 11/15/21 21:59 Last Admin: 10/18/21 11:00 Dose: 20 mg Furosemide (Furosemide 20 Mg Tablet) 20 mg PO DAILY MICKY Stop: 11/16/21 09:59 Last Admin: 10/18/21 11:00 Dose: 20 mg Sodium Chloride (Sodium Chloride 0.9% 1000 Ml) 1,000 mls @ 100 mls/hr IV .Q10H MICKY Stop: 11/14/21 17:59 Last Admin: 10/18/21 06:12 Dose: 100 mls/hr Insulin Human Lispro (Insulin Lispro 1 Unit) 0 unit SQ UD PRN PRN Reason: HYPERGLYCEMIA Stop: 11/14/21 23:46 Last Admin: 10/16/21 12:14 Dose: 2 unit Losartan Potassium (Losartan Potassium 50 Mg Tablet) 25 mg PO BID REPLACED BY [facility] Stop: 11/15/21 13:59 Last Admin: 10/18/21 10:59 Dose: 25 mg Methylprednisolone Sodium Succinate (Methylprednis Sod Succ 125 Mg/2 Ml Vial) 80 mg IV Q8HT REPLACED BY [facility] Stop: 11/15/21 13:59 Last Admin: 10/18/21 06:11 Dose: 80 mg Multivitamins Therapeutic (Multivitamins,Therapeutic 1 Tab Tab) 1 tab PO DAILY REPLACED BY [facility] Stop: 11/15/21 13:59 Last Admin: 10/18/21 10:59 Dose: 1 tab Ondansetron HCl (Ondansetron Hcl 4 Mg/2 Ml Vial) 4 mg IV Q6H PRN PRN PRN Reason: NAUSEA/VOMITING Stop: 11/14/21 23:46 Oseltamivir Phosphate (Oseltamivir 75 Mg Cap) 75 mg PO BID REPLACED BY [facility] Stop: 10/21/21 09:59 Last Admin: 10/18/21 10:59 Dose: 75 mg Potassium Chloride (Potassium Chloride 10 Meq Tablet) 20 meq PO DAILY REPLACED BY [facility] Stop: 11/15/21 13:59 Last Admin: 10/18/21 10:59 Dose: 20 meq Fluticasone/Salmeterol (Fluticasone/Salmeterol 115/21 - 120 Puff Common Canister) 2 puff IH BIDRT REPLACED BY [facility] Stop: 11/15/21 18:59 Last Admin: 10/18/21 06:42 Dose: 2 puff Simvastatin (Simvastatin 20 Mg Tablet) 40 mg PO HS REPLACED BY [facility] Stop: 11/15/21 21:59 Last Admin: 10/17/21 20:36 Dose: 40 mg Intake & Output 10/18/21 10/19/21 11:59 11:59 Intake Total 2465 Output Total 1400 Balance 1065 Weight 69.2 kg Lab Tests 10/17/21 10/17/21 10/18/21 16:49 22:08 06:48 POC Glucometer 105 124 H 120 H 10/18/21 11:16 POC Glucometer 201 H Code(s): J18.9 - PNEUMONIA, UNSPECIFIED ORGANISM (2) Influenza A Current Visit: Yes Status: Acute Code(s): J10.1 - FLU DUE TO OTH IDENT INFLUENZA VIRUS W OTH RESP MANIFEST
--- NOTE | 2021-10-18 12:55 | PCM.NOTE ---
Date and Time: 10/18/21 1254 Subjective Assessment: doing much better - Review of Systems Constitutional: No Fever, No Chills Eyes: No Symptoms Ears, Nose, & Throat: No Symptoms Respiratory: No Cough, No Short Of Breath Cardiac: No Chest Pain, No Edema, No Syncope Abdominal/Gastrointestinal: No Abdominal Pain, No Nausea, No Vomiting, No Diarrhea Genitourinary Symptoms: No Dysuria Musculoskeletal: No Back Pain, No Neck Pain Skin: No Rash Neurological: No Dizziness, No Focal Weakness, No Sensory Changes Psychological: No Symptoms Endocrine: No Symptoms Hematologic/Lymphatic: No Symptoms Immunological/Allergic: No Symptoms Objective Exam General Appearance: no apparent distress, alert Neurologic Exam: alert, oriented x 3, cooperative, normal mood/affect, nml cerebellar function, sensation nml, No motor deficits Skin Exam: normal color, warm, dry Eye Exam: PERRL, EOMI, eyes nml inspection Ears, Nose, Throat Exam: normal ENT inspection, pharynx normal, moist mucous membranes Neck Exam: normal inspection, non-tender, supple, full range of motion Respiratory Exam: normal breath sounds, lungs clear, No respiratory distress Cardiovascular Exam: regular rate/rhythm, normal heart sounds Gastrointestinal/Abdomen Exam: soft, No tenderness, No mass Extremity Exam: normal inspection, normal range of motion Back Exam: normal inspection, normal range of motion, No CVA tenderness, No vertebral tenderness Pelvic Exam: deferred Rectal Exam: deferred OBJECTIVE DATA Vital Signs: Vital Signs - 24 hr Temp Pulse Resp BP Pulse Ox 10/18/21 11:28 86 18 94 L 10/18/21 07:37 98.1 F 74 20 145/72 100 10/18/21 07:17 85 18 94 L 10/18/21 04:00 97.1 F 67 18 130/67 95 10/17/21 23:49 97.7 F 68 16 138/68 95 10/17/21 19:50 97.5 F 64 16 133/61 96 10/17/21 19:18 64 20 96 10/17/21 16:00 97.6 F 58 L 20 121/81 95 10/17/21 14:31 63 18 98 Pain Assessment - Last Documented Pain Intensity 0 Intake and Output: Intake & Output 10/16/21 10/17/21 10/18/21 10/19/21 11:59 11:59 11:59 11:59 Intake Total 480 3597 2465 Output Total 1600 1400 Balance 480 1996 1064 Weight 65.5 kg 68.8 kg 69.2 kg Lab Results: Lab Results-Last 24 Hours 10/17/21 10/17/21 10/18/21 Range/Units 16:49 22:08 06:48 POC Glucometer 105 124 H 120 H (74 to 106) mg/dL 10/18/21 Range/Units 11:16 POC Glucometer 201 H (74 to 106) mg/dL Multi-Disciplinary Progress Notes: Multi-Disciplinary Progress Notes 10/18/21 11:14 Case Management Note by Jennifer Laguerre S/W PATIENT- SHE CONTINUES TO DENY ANY NEW NEEDS REGARDING DC AT THIS TIME. SHE WAS ONCE AGAIN OFFERED HHC BUT PREFERS TO HOLD OFF ON THAT AT THIS TIME Initialized on 10/18/21 11:14 - END OF NOTE Assessment/Plan (1) Bilateral pneumonia Current Visit: Yes Status: Acute Qualifiers: Pneumonia type: due to unspecified organism Lung location: lower lobe of lung Qualified Code(s): J18.9 - Pneumonia, unspecified organism Code(s): J18.9 - PNEUMONIA, UNSPECIFIED ORGANISM (2) Influenza A Current Visit: Yes Status: Acute Assessment & Plan: Chief Complaint Diagnosis Acute hypoxic respiratory failure Allergies Allergy/AdvReac Type Severity Reaction Status Date / Time iodine Allergy Severe Hives Verified 10/15/21 17:29 Vital Signs (Last 24 hours) Temp Pulse Resp BP Pulse Ox 10/18/21 11:28 86 18 94 L 10/18/21 07:37 98.1 F 74 20 145/72 100 10/18/21 07:17 85 18 94 L 10/18/21 04:00 97.1 F 67 18 130/67 95 10/17/21 23:49 97.7 F 68 16 138/68 95 10/17/21 19:50 97.5 F 64 16 133/61 96 10/17/21 19:18 64 20 96 10/17/21 16:00 97.6 F 58 L 20 121/81 95 10/17/21 14:31 63 18 98 Home Medications Medication Instructions Recorded Confirmed Last Taken Type Alendronate Sodium 70 mg 70 mg PO WEEKLY 10/16/21 10/16/21 10/10/21 History [Fosamax 70 MG] Thai/D3/Mag11/Zinc/Fisher Eel/Chuy/Bor 1 tablet PO BID 10/16/21 10/16/21 10/15/21 History [Caltrate 600+D Plus Tablet] Non-Formulary Drug [Non-Formulary 1 inh IH BID 10/16/21 10/16/21 10/15/21 History Bulk Item] Current Medications Generic Name Dose Route Start Last Admin Trade Name Freq PRN Reason Stop Dose Admin Acetaminophen 650 mg 10/15/21 23:47 Acetaminophen 325 Mg Tablet PO 11/14/21 23:46 Q4H PRN PRN PAIN AND/OR FEVER Albuterol/Ipratropium 3 ml 10/16/21 07:00 10/18/21 11:28 Ipratropium/Albuterol Sulfate 3 Ml Ampul.[facility] 11/15/21 06:59 3 ml QIDRT MICKY Administration Albuterol/Ipratropium 3 ml 10/16/21 00:03 10/16/21 00:11 Ipratropium/Albuterol Sulfate 3 Ml Ampul.[facility] 11/15/21 00:02 3 ml Q4HPRN PRN Administration SHORTNESS OF BREATH/WHEEZING Alendronate Sodium 70 mg 10/18/21 06:00 10/18/21 06:11 Alendronate Sodium 70 Mg Tablet PO 11/17/21 05:59 70 mg Q7D MICKY Administration Amlodipine Besylate 2.5 mg 10/16/21 14:00 10/18/21 11:00 Amlodipine Besylate 5 Mg Tablet PO 11/15/21 13:59 2.5 mg DAILY MICKY Administration Aspirin 81 mg 10/17/21 10:00 10/18/21 10:59 Aspirin 81 Mg Tablet.Ec PO 11/16/21 09:59 81 mg DAILY MICKY Administration Calcium Carbonate 1 tab 10/16/21 22:00 10/18/21 11:00 Calcium Carbonate 500 Mg/Vitamin D 1 Tab Tablet PO 11/15/21 21:59 1 tab BID MICKY Administration Carvedilol 25 mg 10/16/21 14:00 10/18/21 10:59 Carvedilol 12.5 Mg Tablet PO 11/15/21 13:59 25 mg BID MICKY Administration Chlorphenir/Hydrocodone Polistirex 5 ml 10/16/21 11:07 10/18/21 11:00 Hydrocodone/Chlorphen P-Stirex 1 Ml Nolvia.Er.12h PO 11/15/21 11:06 5 ml [id number] PRN Administration COUGH Clopidogrel Bisulfate 75 mg 10/17/21 10:00 10/18/21 11:00 Clopidogrel Bisulfate 75 Mg Tablet PO 11/16/21 09:59 75 mg DAILY MICKY Administration Enoxaparin Sodium 40 mg 10/16/21 10:00 10/18/21 11:00 Enoxaparin Sodium 40 Mg/0.4 Ml Syringe SQ 11/15/21 09:59 40 mg DAILY MICKY Administration Famotidine 20 mg 10/16/21 22:00 10/18/21 11:00 Famotidine 20 Mg Tablet PO 11/15/21 21:59 20 mg BID MICKY Administration Furosemide 20 mg 10/17/21 10:00 10/18/21 11:00 Furosemide 20 Mg Tablet PO 11/16/21 09:59 20 mg DAILY MICKY Administration Sodium Chloride 1,000 mls @ 100 mls/hr 10/15/21 18:00 10/18/21 06:12 Sodium Chloride 0.9% 1000 Ml IV 11/14/21 17:59 100 mls/hr .Q10H MICKY Administration Insulin Human Lispro 0 unit 10/15/21 23:47 10/16/21 12:14 Insulin Lispro 1 Unit SQ 11/14/21 23:46 2 unit UD PRN Administration HYPERGLYCEMIA Losartan Potassium 25 mg 10/16/21 14:00 10/18/21 10:59 Losartan Potassium 50 Mg Tablet PO 11/15/21 13:59 25 mg BID MICKY Administration Methylprednisolone Sodium Succinate 80 mg 10/16/21 14:00 10/18/21 06:11 Methylprednis Sod Succ 125 Mg/2 Ml Vial IV 11/15/21 13:59 80 mg Q8HT MICKY Administration Multivitamins Therapeutic 1 tab 10/16/21 14:00 10/18/21 10:59 Multivitamins,Therapeutic 1 Tab Tab PO 11/15/21 13:59 1 tab DAILY MICKY Administration Ondansetron HCl 4 mg 10/15/21 23:47 Ondansetron Hcl 4 Mg/2 Ml Vial IV 11/14/21 23:46 Q6H PRN PRN NAUSEA/VOMITING Oseltamivir Phosphate 75 mg 10/16/21 10:00 10/18/21 10:59 Oseltamivir 75 Mg Cap PO 10/21/21 09:59 75 mg BID MICKY Administration Potassium Chloride 20 meq 10/16/21 14:00 10/18/21 10:59 Potassium Chloride 10 Meq Tablet PO 11/15/21 13:59 20 meq DAILY MICKY Administration Fluticasone/Salmeterol 2 puff 10/16/21 19:00 10/18/21 06:42 Fluticasone/Salmeterol - 120 Puff Common Canister IH 11/15/21 18:59 2 puff BIDRT MICKY Administration Simvastatin 40 mg 10/16/21 22:00 10/17/21 20:36 Simvastatin 20 Mg Tablet PO 11/15/21 21:59 40 mg HS MICKY Administration Discontinued Medications Generic Name Dose Route Start Last Admin Trade Name Freq PRN Reason Stop Dose Admin Acetaminophen 650 mg 10/15/21 19:50 10/15/21 19:52 Acetaminophen 325 Mg Tablet PO 10/15/21 19:51 650 mg STAT STA Administration Acetaminophen Confirm 10/15/21 19:51 Acetaminophen 325 Mg Tablet Administered 10/15/21 19:52 Dose 650 mg .ROUTE .STK-MED ONE Albuterol Sulfate 2.5 mg 10/16/21 17:00 Albuterol Sulfate 2.5 Mg/3 Ml Neb 11/15/21 16:59 QID MICKY Albuterol/Ipratropium 3 ml 10/15/21 17:54 10/15/21 18:39 Ipratropium/Albuterol Sulfate 3 Ml Ampul.Neb IH 10/15/21 17:55 3 ml STAT ONE Administration Albuterol/Ipratropium Confirm 10/15/21 18:34 Ipratropium/Albuterol Sulfate 3 Ml Ampul.Neb Administered 10/15/21 18:35 Dose 3 ml IH .STK-MED ONE Alendronate Sodium 70 mg 10/17/21 10:00 Alendronate Sodium 70 Mg Tablet PO 11/16/21 09:59 WEEKLY MICKY Methylprednisolone Sodium 0 mg 10/16/21 14:00 Succinate 80 mg/ Sterile Water IV 11/15/21 13:59 2 ml Q8HT MICKY Dexamethasone Sodium Phosphate 6 mg 10/15/21 21:10 10/15/21 21:56 Dexamethasone Sod Phosphate 10 Mg/Ml IV 10/15/21 21:11 6 mg STAT ONE Administration Dexamethasone Sodium Phosphate Confirm 10/15/21 21:56 Dexamethasone Sod Phosphate 10 Mg/Ml Administered 10/15/21 21:57 Dose 10 mg .ROUTE .STK-MED ONE Remdesivir 200 mg/ Sodium 250 mls @ 125 mls/hr 10/15/21 21:10 10/15/21 22:21 Chloride IV 10/15/21 23:09 Not Given ONCE ONE Non-Formulary Medication 1 tablet 10/16/21 22:00 Thai/D3/Mag11/Zinc/Fisher Eel/Chuy/Bor [Caltrate 600+D Plus Tablet] PO 11/15/21 21:59 BID MICKY Ondansetron HCl 4 mg 10/15/21 17:52 10/15/21 18:56 Ondansetron Hcl 4 Mg/2 Ml Vial IV 10/15/21 17:53 4 mg STAT ONE Administration Ondansetron HCl Confirm 10/15/21 18:42 Ondansetron Hcl 4 Mg/2 Ml Vial Administered 10/15/21 18:43 Dose 4 mg .ROUTE .STK-MED ONE Oseltamivir Phosphate Confirm 10/15/21 23:17 Oseltamivir 75 Mg Cap Administered 10/15/21 23:18 Dose 75 mg PO .STK-MED ONE Fluticasone/Salmeterol 1 each 10/16/21 07:00 Fluticasone/Salmeterol 250/50 Diskus 11/15/21 06:59 BIDRT MICKY Fluticasone/Salmeterol 1 each 10/16/21 09:00 10/16/21 11:13 Fluticasone/Salmeterol 250/50 Diskus 11/15/21 08:59 Not Given BIDRT MICKY Fluticasone/Salmeterol 2 puff 10/16/21 19:00 10/16/21 10:32 Fluticasone/Salmeterol /21 - 120 Puff Common Canister 11/15/21 18:59 2 puff BIDRT MICKY Administration Intake & Output (Last 24 hours) 10/16/21 10/17/21 10/18/21 10/19/21 11:59 11:59 11:59 11:59 Intake Total 480 5378 2465 Output Total 1600 1400 Balance 480 1996 1064 Weight 65.5 kg 68.8 kg 69.2 kg Laboratory Results (Last 24 hours) 10/18/21 10/18/21 10/17/21 11:16 06:48 22:08 POC Glucometer 201 H 120 H 124 H 10/17/21 16:49 POC Glucometer 105 Orders (Last 24 hours) Category Date Time Status POCT GLUCOSE Stat Lab 10/17/21 16:49 Completed POCT GLUCOSE Stat Lab 10/17/21 22:08 Completed POCT GLUCOSE Stat Lab 10/18/21 06:48 Completed POCT GLUCOSE Stat Lab 10/18/21 11:16 Completed Alendronate Sodium 70 mg [Fosamax 70 MG] Med 10/18/21 06:00 Active 70 mg PO Q7D Patient Care Notes (Last 24 hours) 10/18/21 11:14 Case Management Note by Jennifer Laguerre S/W PATIENT- SHE CONTINUES TO DENY ANY NEW NEEDS REGARDING DC AT THIS TIME. SHE WAS ONCE AGAIN OFFERED HHC BUT PREFERS TO HOLD OFF ON THAT AT THIS TIME Initialized on 10/18/21 11:14 - END OF NOTE Code(s): J10.1 - FLU DUE TO OTH IDENT INFLUENZA VIRUS W OTH RESP MANIFEST
[2021-10-18] MEDS ORDERED: CHLORASEPTIC SPRAY 180 ML PO PRN (13:52)
[2021-10-18] MEDS: ZOCOR 20MG PO SCH (21:31)
[2021-10-19] MEDS: solu-MEDROL IV SCH ×3 (05:17→21:01)
[2021-10-19] MEDS: DUONEB 0.5-3 MG/3 ml Neb IH SCH ×4 (07:01→19:10)
[2021-10-19] MEDS: Advair Hfa 115/21 Common canister IH SCH ×2 (07:02→19:10)
[2021-10-19] MEDS: HYDROCODONE-CHLORPHEN ER SUSP PO PRN ×2 (07:32→21:02)
[2021-10-19] MEDS: THERAGRAN MULTIVITAMIN PO SCH (09:42)
[2021-10-19] MEDS: ECOTRIN 81 MG PO SCH (09:42)
[2021-10-19] MEDS: LASIX 20 MG PO SCH (09:42)
[2021-10-19] MEDS: ENOXAPARIN SODIUM SQ SCH (09:42)
[2021-10-19] MEDS: Calcium 500MG W/Vit D Tablet PO SCH ×2 (09:42→21:02)
[2021-10-19] MEDS: Tamiflu 75MG Capsule PO SCH ×2 (09:43→21:01)
[2021-10-19] MEDS: PLAVIX 75 MG Tablet PO SCH (09:43)
[2021-10-19] MEDS: NORVASC 5 MG PO SCH (09:43)
[2021-10-19] MEDS: Cozaar 50 MG PO SCH ×2 (09:44→21:01)
[2021-10-19] MEDS: COREG 12.5 MG PO SCH ×2 (09:44→21:01)
[2021-10-19] MEDS: Klor Con 10 MEQ PO SCH (09:44)
[2021-10-19] MEDS: Pepcid 20 MG PO SCH ×2 (09:48→21:02)
[2021-10-19 11:00] LABS: Hemoglobin 11.2 gm/dl (12.0-16.0); Mean Cell Volume 99.7 fl (78-100); Mean Corpuscular Hemoglobin 32.8 pg (26-32); Mean Corpuscular Hgb Concent. 32.9 g/dl (32-36); Mean Platelet Volume 9.1 fl (7.5-11.0); Platelet Count 225 K/mm3 (150-450); Red Blood Count 3.41 M/mm3 (4.1-5.4); Red Cell Distribution Width 12.5 % (11.5-14.0); White Blood Count 8.1 K/mm3 (4.0-10.5)
[2021-10-19 11:12] LABS: ANION GAP 8.9 MEQ/L (5-15); BLOOD UREA NITROGEN 15 mg/dL (7-17); CHLORIDE 99 mmol/L (98-107); Calcium 7.9 mg/dL (8.4-10.2); Carbon Dioxide 24 mmol/L (22-30); Creatinine 1 0.75 mg/dL (0.52-1.04); EST GLOMERULAR FILTRATION RATE > 60.0 ML/MIN; Glucose 154 mg/dL (74-106); Potassium 3.4 mmol/L (3.5-5.1); SODIUM 128 mmol/L (137-145)
[2021-10-19] MEDS ORDERED: solu-MEDROL 60 MG, Sterile H2O 10 ml 2 ML IV SCH ×2 (14:00)
--- NOTE | 2021-10-19 17:27 | PCM.NOTE ---
Date and Time: 10/19/211724 Subjective Assessment: more short of breath today - Review of Systems Constitutional: No Fever, No Chills Eyes: No Symptoms Ears, Nose, & Throat: No Symptoms Respiratory: Cough, Orthopnea, Short Of Breath, Wheezing Cardiac: No Chest Pain, No Edema, No Syncope Abdominal/Gastrointestinal: No Abdominal Pain, No Nausea, No Vomiting, No Diarrhea Genitourinary Symptoms: No Dysuria Musculoskeletal: No Back Pain, No Neck Pain Skin: No Rash Neurological: No Dizziness, No Focal Weakness, No Sensory Changes Psychological: No Symptoms Endocrine: No Symptoms Hematologic/Lymphatic: No Symptoms Immunological/Allergic: No Symptoms Objective Exam General Appearance: moderate distress, alert Neurologic Exam: alert, oriented x 3, cooperative, normal mood/affect, sensation nml, No motor deficits Skin Exam: normal color, warm, dry Eye Exam: PERRL, EOMI, eyes nml inspection Ears, Nose, Throat Exam: normal ENT inspection, pharynx normal, moist mucous membranes Neck Exam: normal inspection, non-tender, supple, full range of motion Respiratory Exam: crackles/rales, rhonchi, wheezing, No respiratory distress Cardiovascular Exam: regular rate/rhythm, normal heart sounds Gastrointestinal/Abdomen Exam: soft, No tenderness, No mass Extremity Exam: normal inspection, normal range of motion Back Exam: normal inspection, normal range of motion, No CVA tenderness, No vertebral tenderness Pelvic Exam: deferred Rectal Exam: deferred OBJECTIVE DATA Vital Signs: Vital Signs - 24 hr Temp Pulse Resp BP Pulse Ox 10/19/21 16:00 97.7 F 76 20 140/71 95 10/19/21 15:10 58 L 20 97 10/19/21 11:45 62 20 96 10/19/21 11:39 97.9 F 73 18 114/64 94 L 10/19/21 07:13 66 18 98 10/19/21 07:02 97.9 F 71 18 160/72 95 10/19/21 04:00 97.4 F 61 20 137/69 94 L 10/18/21 23:48 97.5 F 56 L 20 133/62 96 10/18/21 20:00 98.6 F 64 22 139/70 93 L 10/18/21 19:15 102 H 18 93 L Pain Assessment - Last Documented Pain Intensity 0 Pain Scale Used 0-10 Pain Scale Intake and Output: Intake & Output 10/17/21 10/18/21 10/19/21 10/20/21 11:59 11:59 11:59 11:59 Intake Total 3593 6471 1680 240 Output Total 1600 1400 3700 Balance 1996 240 Weight 68.8 kg 69.2 kg 69.3 kg 69.3 kg Lab Results: Lab Results-Last 24 Hours 10/18/21 10/19/21 10/19/21 Range/Units 20:37 06:22 10:54 WBC 8.1 (4.0-10.5) K/mm3 RBC 3.41 L (4.1-5.4) M/mm3 Hgb 11.2 L (12.0-16.0) gm/dl Hct 34.0 L (35-47) % MCV 99.7 (78-100) fl MCH 32.8 H (26-32) pg MCHC 32.9 (32-36) g/dl RDW 12.5 (11.5-14.0) % Plt Count 225 (150-450) K/mm3 MPV 9.1 (7.5-11.0) fl Sodium (137-145) mmol/L Potassium (3.5-5.1) mmol/L Chloride (98-107) mmol/L Carbon Dioxide (22-30) mmol/L Anion Gap (5-15) MEQ/L BUN (7-17) mg/dL Creatinine (0.52-1.04) mg/dL Estimated GFR ML/MIN Glucose (74-106) mg/dL POC Glucometer 199 H 115 H (74 to 106) mg/dL Calcium (8.4-10.2) mg/dL NT-Pro-B Natriuret Pep (0-1800) pg/mL 10/19/21 10/19/21 10/19/21 Range/Units 10:54 10:54 11:19 WBC (4.0-10.5) K/mm3 RBC (4.1-5.4) M/mm3 Hgb (12.0-16.0) gm/dl Hct (35-47) % MCV (78-100) fl MCH (26-32) pg MCHC (32-36) g/dl RDW (11.5-14.0) % Plt Count (150-450) K/mm3 MPV (7.5-11.0) fl Sodium 128 L (137-145) mmol/L Potassium 3.4 L (3.5-5.1) mmol/L Chloride 99 (98-107) mmol/L Carbon Dioxide 24 (22-30) mmol/L Anion Gap 8.9 (5-15) MEQ/L BUN 15 (7-17) mg/dL Creatinine 0.75 (0.52-1.04) mg/dL Estimated GFR > 60.0 ML/MIN Glucose 154 H (74-106) mg/dL POC Glucometer 146 H (74 to 106) mg/dL Calcium 7.9 L (8.4-10.2) mg/dL NT-Pro-B Natriuret Pep 2450 H (0-1800) pg/mL 10/19/21 Range/Units 15:56 WBC (4.0-10.5) K/mm3 RBC (4.1-5.4) M/mm3 Hgb (12.0-16.0) gm/dl Hct (35-47) % MCV (78-100) fl MCH (26-32) pg MCHC (32-36) g/dl RDW (11.5-14.0) % Plt Count (150-450) K/mm3 MPV (7.5-11.0) fl Sodium (137-145) mmol/L Potassium (3.5-5.1) mmol/L Chloride (98-107) mmol/L Carbon Dioxide (22-30) mmol/L Anion Gap (5-15) MEQ/L BUN (7-17) mg/dL Creatinine (0.52-1.04) mg/dL Estimated GFR ML/MIN Glucose (74-106) mg/dL POC Glucometer 145 H (74 to 106) mg/dL Calcium (8.4-10.2) mg/dL NT-Pro-B Natriuret Pep (0-1800) pg/mL Multi-Disciplinary Progress Notes: Multi-Disciplinary Progress Notes 10/19/21 10:56 Case Management Note by Jennifer Laguerre REVIEWED CHART- NO CHANGE IN DC PLANS AT THIS TIME Initialized on 10/19/21 10:56 - END OF NOTE Assessment/Plan (1) Bilateral pneumonia Current Visit: Yes Status: Acute Qualifiers: Pneumonia type: due to unspecified organism Lung location: lower lobe of lung Qualified Code(s): J18.9 - Pneumonia, unspecified organism Assessment & Plan: Chief Complaint Diagnosis EXAC COPD, INFLUENZA A Allergies Allergy/AdvReac Type Severity Reaction Status Date / Time iodine Allergy Severe Hives Verified 10/15/21 17:29 Vital Signs (Last 24 hours) Temp Pulse Resp BP Pulse Ox 10/19/21 16:00 97.7 F 76 20 140/71 95 10/19/21 15:10 58 L 20 97 10/19/21 11:45 62 20 96 10/19/21 11:39 97.9 F 73 18 114/64 94 L 10/19/21 07:13 66 18 98 10/19/21 07:02 97.9 F 71 18 160/72 95 10/19/21 04:00 97.4 F 61 20 137/69 94 L 10/18/21 23:48 97.5 F 56 L 20 133/62 96 10/18/21 20:00 98.6 F 64 22 139/70 93 L 10/18/21 19:15 102 H 18 93 L Home Medications Medication Instructions Recorded Confirmed Last Taken Type Alendronate Sodium 70 mg 70 mg PO WEEKLY 10/16/21 10/16/21 10/10/21 History [Fosamax 70 MG] Thai/D3/Mag11/Zinc/Hot Air Furnace Installer Repairer/Chuy/Bor 1 tablet PO BID 10/16/21 10/16/21 10/15/21 History [Caltrate 600+D Plus Tablet] Non-Formulary Drug [Non-Formulary 1 inh IH BID 10/16/21 10/16/21 10/15/21 History Bulk Item] Current Medications Generic Name Dose Route Start Last Admin Trade Name Freq PRN Reason Stop Dose Admin Acetaminophen 650 mg 10/15/21 23:47 Acetaminophen 325 Mg Tablet PO 11/14/21 23:46 Q4H PRN PRN PAIN AND/OR FEVER Albuterol/Ipratropium 3 ml 10/16/21 07:00 10/19/21 15:10 Ipratropium/Albuterol Sulfate 3 Ml Ampul.Neb IH 11/15/21 06:59 3 ml QIDRT MICKY Administration Albuterol/Ipratropium 3 ml 10/16/21 00:03 10/16/21 00:11 Ipratropium/Albuterol Sulfate 3 Ml Ampul.Neb IH 11/15/21 00:02 3 ml Q4HPRN PRN Administration SHORTNESS OF BREATH/WHEEZING Alendronate Sodium 70 mg 10/18/21 06:00 10/18/21 06:11 Alendronate Sodium 70 Mg Tablet PO 11/17/21 05:59 70 mg Q7D MICKY Administration Amlodipine Besylate 2.5 mg 10/16/21 14:00 10/19/21 09:43 Amlodipine Besylate 5 Mg Tablet PO 11/15/21 13:59 2.5 mg DAILY MICKY Administration Aspirin 81 mg 10/17/21 10:00 10/19/21 09:42 Aspirin 81 Mg Tablet.Ec PO 11/16/21 09:59 81 mg DAILY MICKY Administration Calcium Carbonate 1 tab 10/16/21 22:00 10/19/21 09:42 Calcium Carbonate 500 Mg/Vitamin D 1 Tab Tablet PO 11/15/21 21:59 1 tab BID MICKY Administration Carvedilol 25 mg 10/16/21 14:00 10/19/21 09:44 Carvedilol 12.5 Mg Tablet PO 11/15/21 13:59 25 mg BID MICKY Administration Chlorphenir/Hydrocodone Polistirex 5 ml 10/16/21 11:07 10/19/21 07:32 Hydrocodone/Chlorphen P-Stirex 1 Ml Nolvia.Er.12h PO 11/15/21 11:06 5 ml [id number] PRN Administration COUGH Clopidogrel Bisulfate 75 mg 10/17/21 10:00 10/19/21 09:43 Clopidogrel Bisulfate 75 Mg Tablet PO 11/16/21 09:59 75 mg DAILY MICKY Administration Enoxaparin Sodium 40 mg 10/16/21 10:00 10/19/21 09:42 Enoxaparin Sodium 40 Mg/0.4 Ml Syringe SQ 11/15/21 09:59 40 mg DAILY MICKY Administration Famotidine 20 mg 10/16/21 22:00 10/19/21 09:48 Famotidine 20 Mg Tablet PO 11/15/21 21:59 20 mg BID MICKY Administration Furosemide 20 mg 10/17/21 10:00 10/19/21 09:42 Furosemide 20 Mg Tablet PO 11/16/21 09:59 20 mg DAILY MICKY Administration Insulin Human Lispro 0 unit 10/15/21 23:47 10/16/21 12:14 Insulin Lispro 1 Unit SQ 11/14/21 23:46 2 unit UD PRN Administration HYPERGLYCEMIA Losartan Potassium 25 mg 10/16/21 14:00 10/19/21 09:44 Losartan Potassium 50 Mg Tablet PO 11/15/21 13:59 25 mg BID MICKY Administration Methylprednisolone Sodium Succinate 60 mg 10/19/21 14:00 10/19/21 13:50 Methylprednis Sod Succ 125 Mg/2 Ml Vial IV 11/18/21 13:59 60 mg Q8HT MICKY Administration Multivitamins Therapeutic 1 tab 10/16/21 14:00 10/19/21 09:42 Multivitamins,Therapeutic 1 Tab Tab PO 11/15/21 13:59 1 tab DAILY MICKY Administration Ondansetron HCl 4 mg 10/15/21 23:47 Ondansetron Hcl 4 Mg/2 Ml Vial IV 11/14/21 23:46 Q6H PRN PRN NAUSEA/VOMITING Oseltamivir Phosphate 75 mg 10/16/21 10:00 10/19/21 09:43 Oseltamivir 75 Mg Cap PO 10/21/21 09:59 75 mg BID MICKY Administration Phenol 0 ml 10/18/21 13:52 10/18/21 16:12 Phenol/Sodium Phenolate 180 Ml Bottle PO 11/17/21 13:51 1 ml TIDPRN PRN Administration SORE THROAT Potassium Chloride 20 meq 10/16/21 14:00 10/19/21 09:44 Potassium Chloride 10 Meq Tablet PO 11/15/21 13:59 20 meq DAILY MICKY Administration Fluticasone/Salmeterol 2 puff 10/16/21 19:00 10/19/21 07:02 Fluticasone/Salmeterol 115/21 - 120 Puff Common Canister IH 11/15/21 18:59 2 puff BIDRT MICKY Administration Simvastatin 40 mg 10/16/21 22:00 10/18/21 21:31 Simvastatin 20 Mg Tablet PO 11/15/21 21:59 40 mg HS MICKY Administration Discontinued Medications Generic Name Dose Route Start Last Admin Trade Name Freq PRN Reason Stop Dose Admin Acetaminophen 650 mg 10/15/21 19:50 10/15/21 19:52 Acetaminophen 325 Mg Tablet PO 10/15/21 19:51 650 mg STAT STA Administration Acetaminophen Confirm 10/15/21 19:51 Acetaminophen 325 Mg Tablet Administered 10/15/21 19:52 Dose 650 mg .ROUTE .STK-MED ONE Albuterol Sulfate 2.5 mg 10/16/21 17:00 Albuterol Sulfate 2.5 Mg/3 Ml Neb 11/15/21 16:59 QID MICKY Albuterol/Ipratropium 3 ml 10/15/21 17:54 10/15/21 18:39 Ipratropium/Albuterol Sulfate 3 Ml Ampul.Neb 10/15/21 17:55 3 ml STAT ONE Administration Albuterol/Ipratropium Confirm 10/15/21 18:34 Ipratropium/Albuterol Sulfate 3 Ml Ampul.Neb Administered 10/15/21 18:35 Dose 3 ml IH .STK-MED ONE Alendronate Sodium 70 mg 10/17/21 10:00 Alendronate Sodium 70 Mg Tablet PO 11/16/21 09:59 WEEKLY MICKY Methylprednisolone Sodium 0 mg 10/16/21 14:00 Succinate 80 mg/ Sterile Water IV 11/15/21 13:59 2 ml Q8HT MICKY Dexamethasone Sodium Phosphate 6 mg 10/15/21 21:10 10/15/21 21:56 Dexamethasone Sod Phosphate 10 Mg/Ml IV 10/15/21 21:11 6 mg STAT ONE Administration Dexamethasone Sodium Phosphate Confirm 10/15/21 21:56 Dexamethasone Sod Phosphate 10 Mg/Ml Administered 10/15/21 21:57 Dose 10 mg .ROUTE .STK-MED ONE Sodium Chloride 1,000 mls @ 100 mls/hr 10/15/21 18:00 10/18/21 06:12 Sodium Chloride 0.9% 1000 Ml IV 11/14/21 17:59 100 mls/hr .Q10H MICKY Administration Remdesivir 200 mg/ Sodium 250 mls @ 125 mls/hr 10/15/21 21:10 10/15/21 22:21 Chloride IV 10/15/21 23:09 Not Given ONCE ONE Methylprednisolone Sodium Succinate 80 mg 10/16/21 14:00 10/19/21 05:17 Methylprednis Sod Succ 125 Mg/2 Ml Vial IV 11/15/21 13:59 80 mg Q8HT MICKY Administration Non-Formulary Medication 1 tablet 10/16/21 22:00 Thai/D3/Mag11/Zinc/Hot Air Furnace Installer Repairer/Chuy/Bor [Caltrate 600+D Plus Tablet] PO 11/15/21 21:59 BID MICKY Ondansetron HCl 4 mg 10/15/21 17:52 10/15/21 18:56 Ondansetron Hcl 4 Mg/2 Ml Vial IV 10/15/21 17:53 4 mg STAT ONE Administration Ondansetron HCl Confirm 10/15/21 18:42 Ondansetron Hcl 4 Mg/2 Ml Vial Administered 10/15/21 18:43 Dose 4 mg .ROUTE .STK-MED ONE Oseltamivir Phosphate Confirm 10/15/21 23:17 Oseltamivir 75 Mg Cap Administered 10/15/21 23:18 Dose 75 mg PO .STK-MED ONE Fluticasone/Salmeterol 1 each 10/16/21 07:00 Fluticasone/Salmeterol 250/50 Diskus IH 11/15/21 06:59 BIDRT MICKY Fluticasone/Salmeterol 1 each 10/16/21 09:00 10/16/21 11:13 Fluticasone/Salmeterol 250/50 Diskus IH 11/15/21 08:59 Not Given BIDRT MICKY Fluticasone/Salmeterol 2 puff 10/16/21 19:00 10/16/21 10:32 Fluticasone/Salmeterol - 120 Puff Common Canister 11/15/21 18:59 2 puff BIDRT MICKY Administration Intake & Output (Last 24 hours) 10/17/21 10/18/21 10/19/21 10/20/21 11:59 11:59 11:59 11:59 Intake Total 3597 2465 1680 240 Output Total 1600 1400 3700 Balance 1996 240 Weight 68.8 kg 69.2 kg 69.3 kg 69.3 kg Laboratory Results (Last 24 hours) 10/19/21 10/19/21 10/19/21 15:56 11:19 10:54 WBC RBC Hgb Hct MCV MCH MCHC RDW Plt Count MPV Sodium Potassium Chloride Carbon Dioxide Anion Gap BUN Creatinine Estimated GFR Glucose POC Glucometer 145 H 146 H Calcium NT-Pro-B Natriuret Pep 2450 H 10/19/21 10/19/21 10/19/21 10:54 10:54 06:22 WBC 8.1 RBC 3.41 L Hgb 11.2 L Hct 34.0 L MCV 99.7 MCH 32.8 H MCHC 32.9 RDW 12.5 Plt Count 225 MPV 9.1 Sodium 128 L Potassium 3.4 L Chloride 99 Carbon Dioxide 24 Anion Gap 8.9 BUN 15 Creatinine 0.75 Estimated GFR > 60.0 Glucose 154 H POC Glucometer 115 H Calcium 7.9 L NT-Pro-B Natriuret Pep 10/18/21 20:37 WBC RBC Hgb Hct MCV MCH MCHC RDW Plt Count MPV Sodium Potassium Chloride Carbon Dioxide Anion Gap BUN Creatinine Estimated GFR Glucose POC Glucometer 199 H Calcium NT-Pro-B Natriuret Pep Orders (Last 24 hours) Category Date Time Status BMP Urgent Lab 10/19/21 10:54 Completed BNP [NT PRO BNP] Urgent Lab 10/19/21 10:54 Completed CBC Urgent Lab 10/19/21 10:54 Completed POCT GLUCOSE Stat Lab 10/18/21 20:37 Completed POCT GLUCOSE Stat Lab 10/19/21 06:22 Completed POCT GLUCOSE Stat Lab 10/19/21 11:19 Completed POCT GLUCOSE Stat Lab 10/19/21 15:56 Completed Methylprednis Sod Succ 125 mg* [solu-MEDROL] Med 10/19/21 14:00 Active 60 mg IV Q8HT Patient Care Notes (Last 24 hours) 10/19/21 12:29 Nursing Note by Priya Andrew ROUNDED WITH DR. LINARES, REPORTED BNP. NO NEW ORDERS GIVEN. DECREASE STERIODS Initialized on 10/19/21 12:29 - END OF NOTE 10/19/21 10:56 Case Management Note by Jennifer Laguerre REVIEWED CHART- NO CHANGE IN DC PLANS AT THIS TIME Initialized on 10/19/21 10:56 - END OF NOTE Code(s): J18.9 - PNEUMONIA, UNSPECIFIED ORGANISM (2) Influenza A Current Visit: Yes Status: Acute Code(s): J10.1 - FLU DUE TO OTH IDENT INFLUENZA VIRUS W OTH RESP MANIFEST
[2021-10-19] MEDS: ZOCOR 20MG PO SCH (21:01)
[2021-10-19] MEDS: HUMALOG SQ PRN (21:44)
[2021-10-20] MEDS: solu-MEDROL IV SCH (05:09)
[2021-10-20] MEDS: Advair Hfa 115/21 Common canister IH SCH ×2 (07:05→18:56)
[2021-10-20] MEDS: DUONEB 0.5-3 MG/3 ml Neb IH SCH ×4 (07:05→18:56)
[2021-10-20] MEDS ORDERED: Miralax Powder 17GM PACKET PO PRN (09:38)
--- NOTE | 2021-10-20 10:08 | XRAY ---
Indication: Short of breath. Comparison: May 23, 2021. Portable chest unchanged again demonstrating COPD, CIPD, and a few tiny calcified granulomas. 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 Bony thorax intact again with osteopenia and degenerative changes. No new/acute findings.
[2021-10-20] MEDS: Pepcid 20 MG PO SCH ×2 (10:10→21:24)
[2021-10-20] MEDS: Cozaar 50 MG PO SCH ×2 (10:10→21:23)
[2021-10-20] MEDS: ECOTRIN 81 MG PO SCH (10:10)
[2021-10-20] MEDS: NORVASC 5 MG PO SCH (10:10)
[2021-10-20] MEDS: THERAGRAN MULTIVITAMIN PO SCH (10:10)
[2021-10-20] MEDS: ENOXAPARIN SODIUM SQ SCH (10:10)
[2021-10-20] MEDS: Klor Con 10 MEQ PO SCH ×3 (10:10→21:24)
[2021-10-20] MEDS: Calcium 500MG W/Vit D Tablet PO SCH ×2 (10:10→21:23)
[2021-10-20] MEDS: Tamiflu 75MG Capsule PO SCH ×2 (10:11→21:24)
[2021-10-20] MEDS: PLAVIX 75 MG Tablet PO SCH (10:11)
[2021-10-20] MEDS: COREG 12.5 MG PO SCH ×2 (10:11→21:23)
[2021-10-20] MEDS: LASIX 20 MG PO SCH (10:11)
[2021-10-20 10:14] LABS: Hematocrit 36.8 % (35-47); Hemoglobin 12.5 gm/dl (12.0-16.0); Mean Cell Volume 97.6 fl (78-100); Mean Corpuscular Hemoglobin 33.2 pg (26-32); Mean Platelet Volume 8.9 fl (7.5-11.0); Platelet Count 261 K/mm3 (150-450); Red Blood Count 3.77 M/mm3 (4.1-5.4); Red Cell Distribution Width 12.2 % (11.5-14.0); White Blood Count 8.9 K/mm3 (4.0-10.5)
[2021-10-20 10:34] LABS: BLOOD UREA NITROGEN 19 mg/dL (7-17); CHLORIDE 95 mmol/L (98-107); Calcium 8.2 mg/dL (8.4-10.2); Carbon Dioxide 28 mmol/L (22-30); Creatinine 1 0.89 mg/dL (0.52-1.04); EST GLOMERULAR FILTRATION RATE > 60.0 ML/MIN; Glucose 226 mg/dL (74-106); NT PRO BNP 1930 pg/mL (0-1800); SODIUM 130 mmol/L (137-145)
[2021-10-20 10:46] LABS: A-aADO2 42; ABG HEMOGLOBIN 12.2; ARTERIAL BLD GAS O2 SATURATION 93.1 % (95-100); ARTERIAL BLOOD GAS BASE EXCESS 4.5 (-2.0-2.0); ARTERIAL BLOOD GAS FIO2 21 %; ARTERIAL BLOOD GAS PCO2 39 mmHg (35-45); ARTERIAL BLOOD GAS PO2 59 mmHg (75-100); ARTERIAL BLOOD GAS pH 7.47 (7.35-7.45); CARBOXYHEMOGLOBIN 0.8 % THgb (0.0-6.9); HCO3- 28.4 (22-28); HGB O2 SAT 91.5 g/dF (94-100); Methhemoglobin 0.9 % (1.4-1.5)
[2021-10-20 10:47] LABS: ABG POTASSIUM 2.8 (3.5-5.1); ABG SITE LEFT BRACHIAL
[2021-10-20] MEDS: HUMALOG SQ PRN (12:59)
--- NOTE | 2021-10-20 18:54 | PCM.NOTE ---
Date and Time: 10/20/211851 Subjective Assessment: still very short of breath - Review of Systems Constitutional: No Fever, No Chills Eyes: No Symptoms Ears, Nose, & Throat: No Symptoms Respiratory: Orthopnea, Short Of Breath, Wheezing, No Cough Cardiac: No Chest Pain, No Edema, No Syncope Abdominal/Gastrointestinal: No Abdominal Pain, No Nausea, No Vomiting, No Diarrhea Genitourinary Symptoms: No Dysuria Musculoskeletal: No Back Pain, No Neck Pain Skin: No Rash Neurological: No Dizziness, No Focal Weakness, No Sensory Changes Psychological: No Symptoms Endocrine: No Symptoms Hematologic/Lymphatic: No Symptoms Immunological/Allergic: No Symptoms Objective Exam General Appearance: no apparent distress, alert Neurologic Exam: alert, oriented x 3, cooperative, normal mood/affect, nml cerebellar function, sensation nml, No motor deficits Skin Exam: normal color, warm, dry Eye Exam: PERRL, EOMI, eyes nml inspection Ears, Nose, Throat Exam: normal ENT inspection, pharynx normal, moist mucous membranes Neck Exam: normal inspection, non-tender, supple, full range of motion Respiratory Exam: crackles/rales, rhonchi, wheezing, No respiratory distress Cardiovascular Exam: regular rate/rhythm, normal heart sounds Gastrointestinal/Abdomen Exam: soft, No tenderness, No mass Extremity Exam: normal inspection, normal range of motion Back Exam: normal inspection, normal range of motion, No CVA tenderness, No vertebral tenderness Pelvic Exam: deferred Rectal Exam: deferred OBJECTIVE DATA Vital Signs: Vital Signs - 24 hr Temp Pulse Resp BP Pulse Ox 10/20/21 16:00 97.7 F 55 L 19 144/71 98 10/20/21 14:38 52 L 18 95 10/20/21 12:00 98.2 F 60 19 155/69 97 10/20/21 10:45 61 18 97 10/20/21 08:00 96.8 F 61 21 167/72 98 10/20/21 07:05 58 L 22 96 10/20/21 04:00 98.2 F 65 18 165/76 96 10/20/21 00:00 97.5 F 57 L 16 146/69 97 10/19/21 20:00 95.8 F 65 16 147/67 97 10/19/21 19:24 66 20 98 Pain Assessment - Last Documented Pain Intensity 0 Pain Scale Used 0-10 Pain Scale Intake and Output: Intake & Output 10/18/21 10/19/21 10/20/21 10/21/21 11:59 11:59 11:59 11:59 Intake Total 2465 1680 1260 420 Output Total 1400 3700 2150 Balance 1064 420 Weight 69.2 kg 69.3 kg 69.3 kg Lab Results: Lab Results-Last 24 Hours 10/19/21 10/20/21 10/20/21 Range/Units 21:36 07:32 10:00 WBC 8.9 (4.0-10.5) K/mm3 RBC 3.77 L (4.1-5.4) M/mm3 Hgb 12.5 (12.0-16.0) gm/dl Hct 36.8 (35-47) % MCV 97.6 (78-100) fl MCH 33.2 H (26-32) pg MCHC 34.0 (32-36) g/dl RDW 12.2 (11.5-14.0) % Plt Count 261 (150-450) K/mm3 MPV 8.9 (7.5-11.0) fl Puncture Site pCO2 (35-45) mmHg pO2 (75-100) mmHg Base Excess (-2.0-2.0) O2 Saturation (94-100) g/dF ABG pH (7.35-7.45) ABG HCO3 (22-28) ABG O2 Sat (Measured) (95-100) % Emmanuel Test A-a Gradient a/A Ratio Hemoglobin Carboxyhemoglobin (0.0-6.9) % THgb Methemoglobin (1.4-1.5) % Temperature C POC O2 Flow Rate % Sodium (137-145) mmol/L Potassium (3.5-5.1) mmol/L Chloride (98-107) mmol/L Carbon Dioxide (22-30) mmol/L Anion Gap (5-15) MEQ/L BUN (7-17) mg/dL Creatinine (0.52-1.04) mg/dL Estimated GFR ML/MIN Glucose (74-106) mg/dL POC Glucometer 205 H 119 H (74 to 106) mg/dL Calcium (8.4-10.2) mg/dL NT-Pro-B Natriuret Pep (0-1800) pg/mL 10/20/21 10/20/21 10/20/21 Range/Units 10:00 10:40 11:40 WBC (4.0-10.5) K/mm3 RBC (4.1-5.4) M/mm3 Hgb (12.0-16.0) gm/dl Hct (35-47) % MCV (78-100) fl MCH (26-32) pg MCHC (32-36) g/dl RDW (11.5-14.0) % Plt Count (150-450) K/mm3 MPV (7.5-11.0) fl Puncture Site LEFT BRACHIAL pCO2 39 (35-45) mmHg pO2 59 L (75-100) mmHg Base Excess 4.5 H (-2.0-2.0) O2 Saturation 91.5 L (94-100) g/dF ABG pH 7.47 H (7.35-7.45) ABG HCO3 28.4 H (22-28) ABG O2 Sat (Measured) 93.1 L (95-100) % Emmanuel Test NOT APPLICABLE A-a Gradient 42 a/A Ratio 0.58 Hemoglobin 12.2 Carboxyhemoglobin 0.8 (0.0-6.9) % THgb Methemoglobin 0.9 L (1.4-1.5) % Temperature 37.0 C POC O2 Flow Rate 21 % Sodium 130 L (137-145) mmol/L Potassium 3.0 L* 2.8 L* (3.5-5.1) mmol/L Chloride 95 L (98-107) mmol/L Carbon Dioxide 28 (22-30) mmol/L Anion Gap 10.0 (5-15) MEQ/L BUN 19 H (7-17) mg/dL Creatinine 0.89 (0.52-1.04) mg/dL Estimated GFR > 60.0 ML/MIN Glucose 226 H (74-106) mg/dL POC Glucometer 223 H (74 to 106) mg/dL Calcium 8.2 L (8.4-10.2) mg/dL NT-Pro-B Natriuret Pep 1930 H (0-1800) pg/mL 10/20/21 Range/Units 16:55 WBC (4.0-10.5) K/mm3 RBC (4.1-5.4) M/mm3 Hgb (12.0-16.0) gm/dl Hct (35-47) % MCV (78-100) fl MCH (26-32) pg MCHC (32-36) g/dl RDW (11.5-14.0) % Plt Count (150-450) K/mm3 MPV (7.5-11.0) fl Puncture Site pCO2 (35-45) mmHg pO2 (75-100) mmHg Base Excess (-2.0-2.0) O2 Saturation (94-100) g/dF ABG pH (7.35-7.45) ABG HCO3 (22-28) ABG O2 Sat (Measured) (95-100) % Emmanuel Test A-a Gradient a/A Ratio Hemoglobin Carboxyhemoglobin (0.0-6.9) % THgb Methemoglobin (1.4-1.5) % Temperature C POC O2 Flow Rate % Sodium (137-145) mmol/L Potassium (3.5-5.1) mmol/L Chloride (98-107) mmol/L Carbon Dioxide (22-30) mmol/L Anion Gap (5-15) MEQ/L BUN (7-17) mg/dL Creatinine (0.52-1.04) mg/dL Estimated GFR ML/MIN Glucose (74-106) mg/dL POC Glucometer 99 (74 to 106) mg/dL Calcium (8.4-10.2) mg/dL NT-Pro-B Natriuret Pep (0-1800) pg/mL Radiology Exams: Radiology Procedures Category Date Time Status CHEST 1 VIEW (PORTABLE) Urgent Exams 10/20/21 09:38 Completed Multi-Disciplinary Progress Notes: Multi-Disciplinary Progress Notes 10/20/21 09:15 Case Management Note by Jennifer Laguerre S/W PATIENT- OFFERED [place] [employer]-EDUCATED THAT THIS WAS RECOMMENDED BY DR. LINARES- SHE AGAIN REFUSED. Initialized on 10/20/21 09:15 - END OF NOTE Assessment/Plan (1) Bilateral pneumonia Current Visit: Yes Status: Acute Qualifiers: Pneumonia type: due to unspecified organism Lung location: lower lobe of lung Qualified Code(s): J18.9 - Pneumonia, unspecified organism Assessment & Plan: Chief Complaint Diagnosis EXAC COPD, INFLUENZA A Allergies Allergy/AdvReac Type Severity Reaction Status Date / Time iodine Allergy Severe Hives Verified 10/15/21 17:29 Vital Signs (Last 24 hours) Temp Pulse Resp BP Pulse Ox 10/20/21 16:00 97.7 F 55 L 19 144/71 98 10/20/21 14:38 52 L 18 95 10/20/21 12:00 98.2 F 60 19 155/69 97 10/20/21 10:45 61 18 97 10/20/21 08:00 96.8 F 61 21 167/72 98 10/20/21 07:05 58 L 22 96 10/20/21 04:00 98.2 F 65 18 165/76 96 10/20/21 00:00 97.5 F 57 L 16 146/69 97 10/19/21 20:00 95.8 F 65 16 147/67 97 10/19/21 19:24 66 20 98 Home Medications Medication Instructions Recorded Confirmed Last Taken Type Alendronate Sodium 70 mg 70 mg PO WEEKLY 10/16/21 10/16/21 10/10/21 History [Fosamax 70 MG] Thai/D3/Mag11/Zinc/Primary Care Coordinator/Chuy/Bor 1 tablet PO BID 10/16/21 10/16/21 10/15/21 History [Caltrate 600+D Plus Tablet] Non-Formulary Drug [Non-Formulary 1 inh IH BID 10/16/21 10/16/21 10/15/21 History Bulk Item] Oseltamivir 75 mg [Tamiflu 75MG 75 mg PO BID 3 Days #6 cap 10/20/21 Unknown Rx Capsule] Current Medications Generic Name Dose Route Start Last Admin Trade Name Freq PRN Reason Stop Dose Admin Acetaminophen 650 mg 10/15/21 23:47 Acetaminophen 325 Mg Tablet PO 11/14/21 23:46 Q4H PRN PRN PAIN AND/OR FEVER Albuterol/Ipratropium 3 ml 10/16/21 07:00 10/20/21 14:35 Ipratropium/Albuterol Sulfate 3 Ml Ampul.[facility]ly [facility] 11/15/21 06:59 3 ml QIDRT MICKY Administration Albuterol/Ipratropium 3 ml 10/16/21 00:03 10/16/21 00:11 Ipratropium/Albuterol Sulfate 3 Ml Ampul.Former[facility] 11/15/21 00:02 3 ml Q4HPRN PRN Administration SHORTNESS OF BREATH/WHEEZING Alendronate Sodium 70 mg 10/18/21 06:00 10/18/21 06:11 Alendronate Sodium 70 Mg Tablet PO 11/17/21 05:59 70 mg Q7D MICKY Administration Amlodipine Besylate 2.5 mg 10/16/21 14:00 10/20/21 10:10 Amlodipine Besylate 5 Mg Tablet PO 11/15/21 13:59 2.5 mg DAILY MICKY Administration Aspirin 81 mg 10/17/21 10:00 10/20/21 10:10 Aspirin 81 Mg Tablet.Ec PO 11/16/21 09:59 81 mg DAILY MICKY Administration Budesonide 0.5 mg 10/20/21 19:00 Budesonide 0.5 Mg/2 Ml Ampul.Neb. IH 11/19/21 18:59 BIDRT MICKY Calcium Carbonate 1 tab 10/16/21 22:00 10/20/21 10:10 Calcium Carbonate 500 Mg/Vitamin D 1 Tab Tablet PO 11/15/21 21:59 1 tab BID MICKY Administration Carvedilol 25 mg 10/16/21 14:00 10/20/21 10:11 Carvedilol 12.5 Mg Tablet PO 11/15/21 13:59 25 mg BID MICKY Administration Chlorphenir/Hydrocodone Polistirex 5 ml 10/16/21 11:07 10/19/21 21:02 Hydrocodone/Chlorphen P-Stirex 1 Ml Nolvia.Er.12h PO 11/15/21 11:06 5 ml [id number] PRN Administration COUGH Clopidogrel Bisulfate 75 mg 10/17/21 10:00 10/20/21 10:11 Clopidogrel Bisulfate 75 Mg Tablet PO 11/16/21 09:59 75 mg DAILY MICKY Administration Enoxaparin Sodium 40 mg 10/16/21 10:00 10/20/21 10:10 Enoxaparin Sodium 40 Mg/0.4 Ml Syringe SQ 11/15/21 09:59 40 mg DAILY MICKY Administration Famotidine 20 mg 10/16/21 22:00 10/20/21 10:10 Famotidine 20 Mg Tablet PO 11/15/21 21:59 20 mg BID MICKY Administration Furosemide 20 mg 10/17/21 10:00 10/20/21 10:11 Furosemide 20 Mg Tablet PO 11/16/21 09:59 20 mg DAILY MICKY Administration Insulin Human Lispro 0 unit 10/15/21 23:47 10/20/21 12:59 Insulin Lispro 1 Unit SQ 11/14/21 23:46 2 unit UD PRN Administration HYPERGLYCEMIA Losartan Potassium 25 mg 10/16/21 14:00 10/20/21 10:10 Losartan Potassium 50 Mg Tablet PO 11/15/21 13:59 25 mg BID MICKY Administration Multivitamins Therapeutic 1 tab 10/16/21 14:00 10/20/21 10:10 Multivitamins,Therapeutic 1 Tab Tab PO 11/15/21 13:59 1 tab DAILY MICKY Administration Ondansetron HCl 4 mg 10/15/21 23:47 Ondansetron Hcl 4 Mg/2 Ml Vial IV 11/14/21 23:46 Q6H PRN PRN NAUSEA/VOMITING Oseltamivir Phosphate 75 mg 10/16/21 10:00 10/20/21 10:11 Oseltamivir 75 Mg Cap PO 10/21/21 09:59 75 mg BID MICKY Administration Phenol 0 ml 10/18/21 13:52 10/18/21 16:12 Phenol/Sodium Phenolate 180 Ml Bottle PO 11/17/21 13:51 1 ml TIDPRN PRN Administration SORE THROAT Polyethylene Glycol 17 gm 10/20/21 09:38 10/20/21 10:09 Polyethylene Glycol 3350 17 Gm Packet PO 17 gm QDP PRN Administration CONSTIPATION Potassium Chloride 10 meq 10/20/21 15:00 10/20/21 15:26 Potassium Chloride 10 Meq Tablet PO 11/19/21 14:59 10 meq TID MICKY Administration Prednisone 20 mg 10/20/21 22:00 Prednisone 20 Mg Tablet PO 11/19/21 21:59 BID MICKY Fluticasone/Salmeterol 2 puff 10/16/21 19:00 10/20/21 07:05 Fluticasone/Salmeterol 115/21 - 120 Puff Common Canister IH 11/15/21 18:59 2 puff BIDRT MICKY Administration Simvastatin 40 mg 10/16/21 22:00 10/19/21 21:01 Simvastatin 20 Mg Tablet PO 11/15/21 21:59 40 mg HS MICKY Administration Discontinued Medications Generic Name Dose Route Start Last Admin Trade Name Freq PRN Reason Stop Dose Admin Acetaminophen 650 mg 10/15/21 19:50 10/15/21 19:52 Acetaminophen 325 Mg Tablet PO 10/15/21 19:51 650 mg STAT STA Administration Acetaminophen Confirm 10/15/21 19:51 Acetaminophen 325 Mg Tablet Administered 10/15/21 19:52 Dose 650 mg .ROUTE .STK-MED ONE Albuterol Sulfate 2.5 mg 10/16/21 17:00 Albuterol Sulfate 2.5 Mg/3 Ml Neb 11/15/21 16:59 QID MICKY Albuterol/Ipratropium 3 ml 10/15/21 17:54 10/15/21 18:39 Ipratropium/Albuterol Sulfate 3 Ml Ampul.Neb IH 10/15/21 17:55 3 ml STAT ONE Administration Albuterol/Ipratropium Confirm 10/15/21 18:34 Ipratropium/Albuterol Sulfate 3 Ml Ampul.Neb Administered 10/15/21 18:35 Dose 3 ml IH .STK-MED ONE Alendronate Sodium 70 mg 10/17/21 10:00 Alendronate Sodium 70 Mg Tablet PO 11/16/21 09:59 WEEKLY MICKY Methylprednisolone Sodium 0 mg 10/16/21 14:00 Succinate 80 mg/ Sterile Water IV 11/15/21 13:59 2 ml Q8HT MICKY Dexamethasone Sodium Phosphate 6 mg 10/15/21 21:10 10/15/21 21:56 Dexamethasone Sod Phosphate 10 Mg/Ml IV 10/15/21 21:11 6 mg STAT ONE Administration Dexamethasone Sodium Phosphate Confirm 10/15/21 21:56 Dexamethasone Sod Phosphate 10 Mg/Ml Administered 10/15/21 21:57 Dose 10 mg .ROUTE .STK-MED ONE Sodium Chloride 1,000 mls @ 100 mls/hr 10/15/21 18:00 10/18/21 06:12 Sodium Chloride 0.9% 1000 Ml IV 11/14/21 17:59 100 mls/hr .Q10H MICKY Administration Remdesivir 200 mg/ Sodium 250 mls @ 125 mls/hr 10/15/21 21:10 10/15/21 22:21 Chloride IV 10/15/21 23:09 Not Given ONCE ONE Methylprednisolone Sodium Succinate 80 mg 10/16/21 14:00 10/19/21 05:17 Methylprednis Sod Succ 125 Mg/2 Ml Vial IV 11/15/21 13:59 80 mg Q8HT MICKY Administration Methylprednisolone Sodium Succinate 60 mg 10/19/21 14:00 10/20/21 05:09 Methylprednis Sod Succ 125 Mg/2 Ml Vial IV 11/18/21 13:59 60 mg Q8HT MICKY Administration Non-Formulary Medication 1 tablet 10/16/21 22:00 Thai/D3/Mag11/Zinc/Primary Care Coordinator/Chuy/Bor [Caltrate 600+D Plus Tablet] PO 11/15/21 21:59 BID MICKY Ondansetron HCl 4 mg 10/15/21 17:52 10/15/21 18:56 Ondansetron Hcl 4 Mg/2 Ml Vial IV 10/15/21 17:53 4 mg STAT ONE Administration Ondansetron HCl Confirm 10/15/21 18:42 Ondansetron Hcl 4 Mg/2 Ml Vial Administered 10/15/21 18:43 Dose 4 mg .ROUTE .STK-MED ONE Oseltamivir Phosphate Confirm 10/15/21 23:17 Oseltamivir 75 Mg Cap Administered 10/15/21 23:18 Dose 75 mg PO .STK-MED ONE Potassium Chloride 20 meq 10/16/21 14:00 10/20/21 10:10 Potassium Chloride 10 Meq Tablet PO 11/15/21 13:59 20 meq DAILY MICKY Administration Fluticasone/Salmeterol 1 each 10/16/21 07:00 10/19/21 20:24 Fluticasone/Salmeterol 250/50 Diskus 11/15/21 06:59 Not Given BIDRT MICKY Fluticasone/Salmeterol 1 each 10/16/21 09:00 10/16/21 11:13 Fluticasone/Salmeterol 250/50 Diskus 11/15/21 08:59 Not Given BIDRT MICKY Fluticasone/Salmeterol 2 puff 10/16/21 19:00 10/16/21 10:32 Fluticasone/Salmeterol - 120 Puff Common Canister 11/15/21 18:59 2 puff BIDRT MICKY Administration Intake & Output (Last 24 hours) 10/18/21 10/19/21 10/20/21 10/21/21 11:59 11:59 11:59 11:59 Intake Total 2465 1680 1260 420 Output Total 1400 3700 2150 Balance 1065 -2020 -890 420 Weight 69.2 kg 69.3 kg 69.3 kg Microbiology Results (Last 24 hours) 10/15/21 18:45 Blood Blood Culture Gram Stain - Final Not Reportable 10/15/21 18:45 Blood Blood Culture - Final NO GROWTH 10/15/21 18:40 Blood Blood Culture Gram Stain - Final Not Reportable 10/15/21 18:40 Blood Blood Culture - Final NO GROWTH Laboratory Results (Last 24 hours) 10/20/21 10/20/21 10/20/21 16:55 11:40 10:40 WBC RBC Hgb Hct MCV MCH MCHC RDW Plt Count MPV Puncture Site LEFT BRACHIAL pCO2 39 pO2 59 L Base Excess 4.5 H O2 Saturation 91.5 L ABG pH 7.47 H ABG HCO3 28.4 H ABG O2 Sat (Measured) 93.1 L Emmanuel Test NOT APPLICABLE A-a Gradient 42 a/A Ratio 0.58 Hemoglobin 12.2 Carboxyhemoglobin 0.8 Methemoglobin 0.9 L Temperature 37.0 POC O2 Flow Rate 21 Sodium Potassium 2.8 L* Chloride Carbon Dioxide Anion Gap BUN Creatinine Estimated GFR Glucose POC Glucometer 99 223 H Calcium NT-Pro-B Natriuret Pep 10/20/21 10/20/21 10/20/21 10:00 10:00 07:32 WBC 8.9 RBC 3.77 L Hgb 12.5 Hct 36.8 MCV 97.6 MCH 33.2 H MCHC 34.0 RDW 12.2 Plt Count 261 MPV 8.9 Puncture Site pCO2 pO2 Base Excess O2 Saturation ABG pH ABG HCO3 ABG O2 Sat (Measured) Emmanuel Test A-a Gradient a/A Ratio Hemoglobin Carboxyhemoglobin Methemoglobin Temperature POC O2 Flow Rate Sodium 130 L Potassium 3.0 L* Chloride 95 L Carbon Dioxide 28 Anion Gap 10.0 BUN 19 H Creatinine 0.89 Estimated GFR > 60.0 Glucose 226 H POC Glucometer 119 H Calcium 8.2 L NT-Pro-B Natriuret Pep 1930 H 10/19/21 21:36 WBC RBC Hgb Hct MCV MCH MCHC RDW Plt Count MPV Puncture Site pCO2 pO2 Base Excess O2 Saturation ABG pH ABG HCO3 ABG O2 Sat (Measured) Emmanuel Test A-a Gradient a/A Ratio Hemoglobin Carboxyhemoglobin Methemoglobin Temperature POC O2 Flow Rate Sodium Potassium Chloride Carbon Dioxide Anion Gap BUN Creatinine Estimated GFR Glucose POC Glucometer 205 H Calcium NT-Pro-B Natriuret Pep Orders (Last 24 hours) Category Date Time Status CHEST 1 VIEW (PORTABLE) Urgent Exams 10/20/21 09:38 Completed ABG [ARTERIAL BLOOD GASES] Urgent Lab 10/20/21 10:40 Completed BMP Routine Lab 10/21/21 Ordered BMP Urgent Lab 10/20/21 10:00 Completed BNP [NT PRO BNP] Routine Lab 10/21/21 Ordered BNP [NT PRO BNP] Urgent Lab 10/20/21 10:00 Completed CBC Urgent Lab 10/20/21 10:00 Completed POCT GLUCOSE Stat Lab 10/19/21 21:36 Completed POCT GLUCOSE Stat Lab 10/20/21 07:32 Completed POCT GLUCOSE Stat Lab 10/20/21 11:40 Completed POCT GLUCOSE Stat Lab 10/20/21 16:55 Completed Budesonide 0.5 mg/2 ml [Pulmicort 0.5 mg/2 ml Med 10/20/21 19:00 Active Respules] 0.5 mg IH BIDRT Polyethylene Glycol 3350 17 gm [Miralax Powder 17GM Med 10/20/21 09:38 Active PACKET] 17 gm PO QDP PRN Potassium Chloride 10 Meq Tab* [Klor Con 10 MEQ] Med 10/20/21 15:00 Active 10 meq PO TID Prednisone 20 mg [Deltasone 20 mg] Med 10/20/21 22:00 Active 20 mg PO BID Patient Care Notes (Last 24 hours) 10/20/21 13:48 CARDIAC/VASCULAR SONOGRAPHER Note by Lola Washington DR CANCELLED DC FOR TODAY. WILL SEE PATIENT AGAIN IN THE MORNING. Initialized on 10/20/21 13:48 - END OF NOTE 10/20/21 10:52 Nursing Note by Nicole Baird CALLED DR. LINARES OFFICE AT THIS TIME AND REPORTED CRITICAL POTASSIUM LAB VALUE. Initialized on 10/20/21 10:52 - END OF NOTE 10/20/21 09:15 Case Management Note by Jennifer Laguerre S/W PATIENT- OFFERED [place] [employer]-EDUCATED THAT THIS WAS RECOMMENDED BY DR. LINARES- SHE AGAIN REFUSED. Initialized on 10/20/21 09:15 - END OF NOTE Code(s): J18.9 - PNEUMONIA, UNSPECIFIED ORGANISM (2) Influenza A Current Visit: Yes Status: Acute Code(s): J10.1 - FLU DUE TO OTH IDENT INFLUENZA VIRUS W OTH RESP MANIFEST (3) Hypokalemia due to loss of potassium Current Visit: Yes Status: Acute Assessment & Plan: k replacement Code(s): E87.6 - HYPOKALEMIA
[2021-10-20] MEDS: PULMICORT 0.5 MG/2 ML RESPULES IH SCH (18:56)
[2021-10-20] MEDS: DELTASONE 20 MG PO SCH (21:24)
[2021-10-20] MEDS: ZOCOR 20MG PO SCH (21:24)
[2021-10-21 06:04] LABS: ANION GAP 9.6 MEQ/L (5-15); BLOOD UREA NITROGEN 17 mg/dL (7-17); CHLORIDE 95 mmol/L (98-107); Calcium 8.1 mg/dL (8.4-10.2); Carbon Dioxide 30 mmol/L (22-30); Creatinine 1 0.84 mg/dL (0.52-1.04); EST GLOMERULAR FILTRATION RATE > 60.0 ML/MIN; Glucose 111 mg/dL (74-106); NT PRO BNP 1260 pg/mL (0-1800); SODIUM 130 mmol/L (137-145)
[2021-10-21 06:14] LABS: Potassium 3.7 mmol/L (3.5-5.1)
[2021-10-21] MEDS: DUONEB 0.5-3 MG/3 ml Neb IH SCH ×4 (07:18→18:38)
[2021-10-21] MEDS: Advair Hfa 115/21 Common canister IH SCH ×2 (07:19→18:37)
[2021-10-21] MEDS: PULMICORT 0.5 MG/2 ML RESPULES IH SCH ×2 (07:19→18:37)
[2021-10-21] MEDS: Cozaar 50 MG PO SCH ×2 (08:23→21:27)
[2021-10-21] MEDS: THERAGRAN MULTIVITAMIN PO SCH (08:24)
[2021-10-21] MEDS: NORVASC 5 MG PO SCH (08:24)
[2021-10-21] MEDS: COREG 12.5 MG PO SCH ×2 (08:24→21:27)
[2021-10-21] MEDS: Calcium 500MG W/Vit D Tablet PO SCH ×2 (08:24→21:27)
[2021-10-21] MEDS: Pepcid 20 MG PO SCH ×2 (08:24→21:28)
[2021-10-21] MEDS: PLAVIX 75 MG Tablet PO SCH (08:25)
[2021-10-21] MEDS: DELTASONE 20 MG PO SCH ×2 (08:25→21:28)
[2021-10-21] MEDS: ECOTRIN 81 MG PO SCH (08:25)
[2021-10-21] MEDS: ENOXAPARIN SODIUM SQ SCH (08:25)
[2021-10-21] MEDS: LASIX 20 MG PO SCH (08:25)
[2021-10-21] MEDS: Klor Con 10 MEQ PO SCH ×3 (08:25→21:28)
--- NOTE | 2021-10-21 12:15 | XRAY ---
Indication: Cough and short of breath. Multiple contiguous axial images obtained through the chest without contrast. Comparison: October 15, 2021. Previous minimal bilateral patchy airspace disease has improved with minimal residual in left apex and both lower lobes. Superior segment right lower lobe demonstrates new 6 x 8 x 7 mm noncalcified nodularity abutting the fissure. There remains scattered peripheral fibrosis/scarring bilaterally and small right lower lobe calcified granuloma. No effusion. Heart not enlarged again with scattered chronic calcifications and CABG surgery. Aorta again demonstrates scattered arteriosclerotic calcifications without aneurysm. No pathologic mediastinal lymphadenopathy. Bony thorax intact again with sternotomy wires. Limited upper abdomen again demonstrates cholecystectomy clips. Impression: 1. Interval diminished bilateral patchy airspace disease with minimal residual as detailed. 2. New right lower lobe indeterminant subcentimeter noncalcified nodularity. 3. Again incidental pulmonary fibrosis/scarring, scattered arteriosclerotic disease, right lower lobe calcified granuloma, and CABG.
--- NOTE | 2021-10-21 18:07 | PCM.NOTE ---
Date and Time: 10/21/211805 Subjective Assessment: doing better - Review of Systems Constitutional: No Fever, No Chills Eyes: No Symptoms Ears, Nose, & Throat: No Symptoms Respiratory: No Cough, No Short Of Breath Cardiac: No Chest Pain, No Edema, No Syncope Abdominal/Gastrointestinal: No Abdominal Pain, No Nausea, No Vomiting, No Diarrhea Genitourinary Symptoms: No Dysuria Musculoskeletal: No Back Pain, No Neck Pain Skin: No Rash Neurological: No Dizziness, No Focal Weakness, No Sensory Changes Psychological: No Symptoms Endocrine: No Symptoms Hematologic/Lymphatic: No Symptoms Immunological/Allergic: No Symptoms Objective Exam General Appearance: no apparent distress, alert Neurologic Exam: alert, oriented x 3, cooperative, normal mood/affect, nml cerebellar function, sensation nml, No motor deficits Skin Exam: normal color, warm, dry Eye Exam: PERRL, EOMI, eyes nml inspection Ears, Nose, Throat Exam: normal ENT inspection, pharynx normal, moist mucous membranes Neck Exam: normal inspection, non-tender, supple, full range of motion Respiratory Exam: normal breath sounds, lungs clear, No respiratory distress Cardiovascular Exam: regular rate/rhythm, normal heart sounds Gastrointestinal/Abdomen Exam: soft, No tenderness, No mass Extremity Exam: normal inspection, normal range of motion Back Exam: normal inspection, normal range of motion, No CVA tenderness, No vertebral tenderness Pelvic Exam: deferred Rectal Exam: deferred OBJECTIVE DATA Vital Signs: Vital Signs - 24 hr Temp Pulse Resp BP Pulse Ox 10/21/21 16:00 98.1 F 63 21 145/70 95 10/21/21 15:19 64 18 96 10/21/21 12:00 97.6 F 61 21 133/64 96 10/21/21 10:54 60 16 94 L 10/21/21 08:00 97.7 F 65 23 183/95 96 10/21/21 07:27 86 18 96 10/21/21 04:00 97.8 F 62 18 161/72 99 10/21/21 00:00 98.1 F 61 16 119/67 95 10/20/21 20:00 97.3 F 58 L 17 142/68 97 10/20/21 18:59 65 20 96 Pain Assessment - Last Documented Pain Intensity 0 Pain Scale Used 0-10 Pain Scale Intake and Output: Intake & Output 12/10/20/21 10/21/21 10/22/21 11:59 11:59 11:59 11:59 Intake Total 1680 1260 2100 1000 Output Total 3700 2150 3100 900 Balance -2019 100 Weight 69.3 kg 69.3 kg 68.4 kg Lab Results: Lab Results-Last 24 Hours 10/20/21 10/21/21 10/21/21 Range/Units 20:58 05:00 07:50 Sodium 130 L (137-145) mmol/L Potassium 3.7 D (3.5-5.1) mmol/L Chloride 95 L (98-107) mmol/L Carbon Dioxide 30 (22-30) mmol/L Anion Gap 9.6 (5-15) MEQ/L BUN 17 (7-17) mg/dL Creatinine 0.84 (0.52-1.04) mg/dL Estimated GFR > 60.0 ML/MIN Glucose 111 H (74-106) mg/dL POC Glucometer 130 H 110 H (74 to 106) mg/dL Calcium 8.1 L (8.4-10.2) mg/dL NT-Pro-B Natriuret Pep 1260 (0-1800) pg/mL 10/21/21 10/21/21 Range/Units 11:51 16:40 Sodium (137-145) mmol/L Potassium (3.5-5.1) mmol/L Chloride (98-107) mmol/L Carbon Dioxide (22-30) mmol/L Anion Gap (5-15) MEQ/L BUN (7-17) mg/dL Creatinine (0.52-1.04) mg/dL Estimated GFR ML/MIN Glucose (74-106) mg/dL POC Glucometer 153 H 132 H (74 to 106) mg/dL Calcium (8.4-10.2) mg/dL NT-Pro-B Natriuret Pep (0-1800) pg/mL Radiology Exams: Radiology Procedures Category Date Time Status CHEST 1 VIEW (PORTABLE) Urgent Exams 10/20/21 09:38 Completed CHEST WITHOUT CONTRAST [CT] Routine Exams 10/21/21 10:50 Completed Assessment/Plan (1) Bilateral pneumonia Current Visit: Yes Status: Acute Qualifiers: Pneumonia type: due to unspecified organism Lung location: lower lobe of lung Qualified Code(s): J18.9 - Pneumonia, unspecified organism Assessment & Plan: Chief Complaint Diagnosis EXAC COPD, INFLUENZA A Allergies Allergy/AdvReac Type Severity Reaction Status Date / Time iodine Allergy Severe Hives Verified 10/15/21 17:29 Vital Signs (Last 24 hours) Temp Pulse Resp BP Pulse Ox 10/21/21 16:00 98.1 F 63 21 145/70 95 10/21/21 15:19 64 18 96 10/21/21 12:00 97.6 F 61 21 133/64 96 10/21/21 10:54 60 16 94 L 10/21/21 08:00 97.7 F 65 23 183/95 96 10/21/21 07:27 86 18 96 10/21/21 04:00 97.8 F 62 18 161/72 99 10/21/21 00:00 98.1 F 61 16 119/67 95 10/20/21 20:00 97.3 F 58 L 17 142/68 97 10/20/21 18:59 65 20 96 Home Medications Medication Instructions Recorded Confirmed Last Taken Type Alendronate Sodium 70 mg 70 mg PO WEEKLY 10/16/21 10/16/21 10/10/21 History [Fosamax 70 MG] Thai/D3/Mag11/Zinc/Hvac Technician Residential/Chuy/Bor 1 tablet PO BID 10/16/21 10/16/21 10/15/21 History [Caltrate 600+D Plus Tablet] Non-Formulary Drug [Non-Formulary 1 inh IH BID 10/16/21 10/16/21 10/15/21 History Bulk Item] Oseltamivir 75 mg [Tamiflu 75MG 75 mg PO BID 3 Days #6 cap 10/20/21 Unknown Rx Capsule] Current Medications Generic Name Dose Route Start Last Admin Trade Name Freq PRN Reason Stop Dose Admin Acetaminophen 650 mg 10/15/21 23:47 Acetaminophen 325 Mg Tablet PO 11/14/21 23:46 Q4H PRN PRN PAIN AND/OR FEVER Albuterol/Ipratropium 3 ml 10/16/21 07:00 10/21/21 15:19 Ipratropium/Albuterol Sulfate 3 Ml Ampul.Neb IH 11/15/21 06:59 3 ml QIDRT MICKY Administration Albuterol/Ipratropium 3 ml 10/16/21 00:03 10/16/21 00:11 Ipratropium/Albuterol Sulfate 3 Ml Ampul.Neb IH 11/15/21 00:02 3 ml Q4HPRN PRN Administration SHORTNESS OF BREATH/WHEEZING Alendronate Sodium 70 mg 10/18/21 06:00 10/18/21 06:11 Alendronate Sodium 70 Mg Tablet PO 11/17/21 05:59 70 mg Q7D MICKY Administration Amlodipine Besylate 2.5 mg 10/16/21 14:00 10/21/21 08:24 Amlodipine Besylate 5 Mg Tablet PO 11/15/21 13:59 2.5 mg DAILY MICKY Administration Aspirin 81 mg 10/17/21 10:00 10/21/21 08:25 Aspirin 81 Mg Tablet.Ec PO 11/16/21 09:59 81 mg DAILY MICKY Administration Budesonide 0.5 mg 10/20/21 19:00 10/21/21 07:19 Budesonide 0.5 Mg/2 Ml Ampul.Neb. 11/19/21 18:59 0.5 mg BIDRT MICKY Administration Calcium Carbonate 1 tab 10/16/21 22:00 10/21/21 08:24 Calcium Carbonate 500 Mg/Vitamin D 1 Tab Tablet PO 11/15/21 21:59 1 tab BID MICKY Administration Carvedilol 25 mg 10/16/21 14:00 10/21/21 08:24 Carvedilol 12.5 Mg Tablet PO 11/15/21 13:59 25 mg BID MICKY Administration Chlorphenir/Hydrocodone Polistirex 5 ml 10/16/21 11:07 10/19/21 21:02 Hydrocodone/Chlorphen P-Stirex 1 Ml Nolvia.Er.12h PO 11/15/21 11:06 5 ml [id number] PRN Administration COUGH Clopidogrel Bisulfate 75 mg 10/17/21 10:00 10/21/21 08:25 Clopidogrel Bisulfate 75 Mg Tablet PO 11/16/21 09:59 75 mg DAILY MICKY Administration Enoxaparin Sodium 40 mg 10/16/21 10:00 10/21/21 08:25 Enoxaparin Sodium 40 Mg/0.4 Ml Syringe SQ 11/15/21 09:59 40 mg DAILY MICKY Administration Famotidine 20 mg 10/16/21 22:00 10/21/21 08:24 Famotidine 20 Mg Tablet PO 11/15/21 21:59 20 mg BID MICKY Administration Furosemide 20 mg 10/17/21 10:00 10/21/21 08:25 Furosemide 20 Mg Tablet PO 11/16/21 09:59 20 mg DAILY MICKY Administration Insulin Human Lispro 0 unit 10/15/21 23:47 10/20/21 12:59 Insulin Lispro 1 Unit SQ 11/14/21 23:46 2 unit UD PRN Administration HYPERGLYCEMIA Losartan Potassium 25 mg 10/16/21 14:00 10/21/21 08:23 Losartan Potassium 50 Mg Tablet PO 11/15/21 13:59 25 mg BID MICKY Administration Multivitamins Therapeutic 1 tab 10/16/21 14:00 10/21/21 08:24 Multivitamins,Therapeutic 1 Tab Tab PO 11/15/21 13:59 1 tab DAILY MICKY Administration Ondansetron HCl 4 mg 10/15/21 23:47 Ondansetron Hcl 4 Mg/2 Ml Vial IV 11/14/21 23:46 Q6H PRN PRN NAUSEA/VOMITING Phenol 0 ml 10/18/21 13:52 10/18/21 16:12 Phenol/Sodium Phenolate 180 Ml Bottle PO 11/17/21 13:51 1 ml TIDPRN PRN Administration SORE THROAT Polyethylene Glycol 17 gm 10/20/21 09:38 10/20/21 10:09 Polyethylene Glycol 3350 17 Gm Packet PO 17 gm QDP PRN Administration CONSTIPATION Potassium Chloride 10 meq 10/20/21 15:00 10/21/21 16:44 Potassium Chloride 10 Meq Tablet PO 11/19/21 14:59 10 meq TID MICKY Administration Prednisone 20 mg 10/20/21 22:00 10/21/21 08:25 Prednisone 20 Mg Tablet PO 11/19/21 21:59 20 mg BID MICKY Administration Fluticasone/Salmeterol 2 puff 10/16/21 19:00 10/21/21 07:19 Fluticasone/Salmeterol 115/21 - 120 Puff Common Canister IH 11/15/21 18:59 2 puff BIDRT MICKY Administration Simvastatin 40 mg 10/16/21 22:00 10/20/21 21:24 Simvastatin 20 Mg Tablet PO 11/15/21 21:59 40 mg HS MICKY Administration Discontinued Medications Generic Name Dose Route Start Last Admin Trade Name Freq PRN Reason Stop Dose Admin Acetaminophen 650 mg 10/15/21 19:50 10/15/21 19:52 Acetaminophen 325 Mg Tablet PO 10/15/21 19:51 650 mg STAT STA Administration Acetaminophen Confirm 10/15/21 19:51 Acetaminophen 325 Mg Tablet Administered 10/15/21 19:52 Dose 650 mg .ROUTE .STK-MED ONE Albuterol Sulfate 2.5 mg 10/16/21 17:00 Albuterol Sulfate 2.5 Mg/3 Ml [facility] 11/15/21 16:59 QID MICKY Albuterol/Ipratropium 3 ml 10/15/21 17:54 10/15/21 18:39 Ipratropium/Albuterol Sulfate 3 Ml Ampul.Neb 10/15/21 17:55 3 ml STAT ONE Administration Albuterol/Ipratropium Confirm 10/15/21 18:34 Ipratropium/Albuterol Sulfate 3 Ml Ampul.Neb Administered 10/15/21 18:35 Dose 3 ml IH .STK-MED ONE Alendronate Sodium 70 mg 10/17/21 10:00 Alendronate Sodium 70 Mg Tablet PO 11/16/21 09:59 WEEKLY [facility] Methylprednisolone Sodium 0 mg 10/16/21 14:00 Succinate 80 mg/ Sterile Water IV 11/15/21 13:59 2 ml Q8HT [facility] Dexamethasone Sodium Phosphate 6 mg 10/15/21 21:10 10/15/21 21:56 Dexamethasone Sod Phosphate 10 Mg/Ml IV 10/15/21 21:11 6 mg STAT ONE Administration Dexamethasone Sodium Phosphate Confirm 10/15/21 21:56 Dexamethasone Sod Phosphate 10 Mg/Ml Administered 10/15/21 21:57 Dose 10 mg .ROUTE .STK-MED ONE Sodium Chloride 1,000 mls @ 100 mls/hr 10/15/21 18:00 10/18/21 06:12 Sodium Chloride 0.9% 1000 Ml IV 11/14/21 17:59 100 mls/hr .Q10H MICKY Administration Remdesivir 200 mg/ Sodium 250 mls @ 125 mls/hr 10/15/21 21:10 10/15/21 22:21 Chloride IV 10/15/21 23:09 Not Given ONCE ONE Methylprednisolone Sodium Succinate 80 mg 10/16/21 14:00 10/19/21 05:17 Methylprednis Sod Succ 125 Mg/2 Ml Vial IV 11/15/21 13:59 80 mg Q8HT MICKY Administration Methylprednisolone Sodium Succinate 60 mg 10/19/21 14:00 10/20/21 05:09 Methylprednis Sod Succ 125 Mg/2 Ml Vial IV 11/18/21 13:59 60 mg Q8HT MICKY Administration Non-Formulary Medication 1 tablet 10/16/21 22:00 Thai/D3/Mag11/Zinc/Hvac Technician Residential/Chuy/Bor [Caltrate 600+D Plus Tablet] PO 11/15/21 21:59 BID MICKY Ondansetron HCl 4 mg 10/15/21 17:52 10/15/21 18:56 Ondansetron Hcl 4 Mg/2 Ml Vial IV 10/15/21 17:53 4 mg STAT ONE Administration Ondansetron HCl Confirm 10/15/21 18:42 Ondansetron Hcl 4 Mg/2 Ml Vial Administered 10/15/21 18:43 Dose 4 mg .ROUTE .STK-MED ONE Oseltamivir Phosphate 75 mg 10/16/21 10:00 10/20/21 21:24 Oseltamivir 75 Mg Cap PO 10/21/21 09:59 75 mg BID MICKY Administration Oseltamivir Phosphate Confirm 10/15/21 23:17 Oseltamivir 75 Mg Cap Administered 10/15/21 23:18 Dose 75 mg PO .STK-MED ONE Potassium Chloride 20 meq 10/16/21 14:00 10/20/21 10:10 Potassium Chloride 10 Meq Tablet PO 11/15/21 13:59 20 meq DAILY MICKY Administration Fluticasone/Salmeterol 1 each 10/16/21 07:00 10/19/21 20:24 Fluticasone/Salmeterol 250/50 Diskus 11/15/21 06:59 Not Given BIDRT MICKY Fluticasone/Salmeterol 1 each 10/16/21 09:00 10/16/21 11:13 Fluticasone/Salmeterol 250/50 Diskus IH 11/15/21 08:59 Not Given BIDRT MICKY Fluticasone/Salmeterol 2 puff 10/16/21 19:00 10/16/21 10:32 Fluticasone/Salmeterol 115/21 - 120 Puff Common Canister 11/15/21 18:59 2 puff BIDRT MICKY Administration Intake & Output (Last 24 hours) 10/19/21 10/20/21 10/21/21 10/22/21 11:59 11:59 11:59 11:59 Intake Total 1680 1260 2100 1000 Output Total 3700 2150 3100 900 Balance -2019 -890 -1000 100 Weight 69.3 kg 69.3 kg 68.4 kg Laboratory Results (Last 24 hours) 10/21/21 10/21/21 10/21/21 16:40 11:51 07:50 Sodium Potassium Chloride Carbon Dioxide Anion Gap BUN Creatinine Estimated GFR Glucose POC Glucometer 132 H 153 H 110 H Calcium NT-Pro-B Natriuret Pep 10/21/21 10/20/21 05:00 20:58 Sodium 130 L Potassium 3.7 D Chloride 95 L Carbon Dioxide 30 Anion Gap 9.6 BUN 17 Creatinine 0.84 Estimated GFR > 60.0 Glucose 111 H POC Glucometer 130 H Calcium 8.1 L NT-Pro-B Natriuret Pep 1260 Orders (Last 24 hours) Category Date Time Status Miscellaneous Nursing Order ROUTINE Care 10/21/21 09:47 Active Heart-Healthy Diet Diet 10/21/21 Lunch Active CHEST WITHOUT CONTRAST [CT] Routine Exams 10/21/21 10:50 Completed BMP Routine Lab 10/21/21 05:00 Completed BNP [NT PRO BNP] Routine Lab 10/21/21 05:00 Completed POCT GLUCOSE Stat Lab 10/20/21 20:58 Completed POCT GLUCOSE Stat Lab 10/21/21 07:50 Completed POCT GLUCOSE Stat Lab 10/21/21 11:51 Completed POCT GLUCOSE Stat Lab 10/21/21 16:40 Completed Budesonide 0.5 mg/2 ml [Pulmicort 0.5 mg/2 ml Med 10/20/21 19:00 Active Respules] 0.5 mg IH BIDRT Prednisone 20 mg [Deltasone 20 mg] Med 10/20/21 22:00 Active 20 mg PO BID Patient Care Notes (Last 24 hours) 10/21/21 14:29 Nursing Note by Hong Greco CALLED DR LINARES, INFORMED HIM PT WOULDNT HAVE A RIDE UNTIL TOMORROW MORNING, HE STATED THAT WAS OK AND MAKE SURE TO DC IN AM Initialized on 10/21/21 14:29 - END OF NOTE 10/21/21 13:31 Nursing Note by FannieHong SPOKE WITH PT, SHE STATES SHE DOES HAVE A NEB MACHINE AT HOME, WOULD LIKE TO WAIT ON [place] TO SEE HOW SHE DOES AT HOME AND THEN DECIDE IF SHE WANTS IT, SHE DOES NOT HAVE ANYONE TO TAKE HER HOME TODAY, HER BROTHER IS HAVING A MALACHI WITH HIS FAMILY BUT COULD PICK HER UP IN THE MORNING. CALLED DR LINARES, DID NOT ANSWER, LM Initialized on 10/21/21 13:31 - END OF NOTE 10/21/21 12:57 Nursing Note by FannieHong CALLED CT RESULTS TO DR LINARES AND INFORMED HIM PT STATES SHES STILL NOT SURE WITH HER BREATHING SHES NOT CONFIDENT AND HAS FELT BETTER. HE STATED TO SEE IF PT HAS NEB MACHINE AT HOME, EXPLAIN TO HER SHE WILL FEEL BAD FOR FEW MORE DAYS IT WILL TAKE TIME BUT WILL SEND HOME ON MEDS, NEBULIZER AND WOULD LIKE TO SET UP HHC AND TO F/U WITH HIM ON SUNDAY IN [place] AT 09:30. IF PT DOES NOT HAVE NEB MACHINE SEND ONE IN, DUONEB QID, MEDROL DOSE PACK, LEVOFLOXACIN 500MG DAILY X3 DAYS, MAKE SURE PT FINISHED TAMIFLU 5 DAY DOSES Initialized on 10/21/21 12:57 - END OF NOTE 10/21/21 10:37 Nursing Note by FannieHong WALKED WITH PT IN ROOM WITH PULSE OX ON, PT O2 SATS 93%-95% ON RA. PT C/O FEELING SOB BUT STATES SHE FEELS MORE SOB IN THE MORNING AND SEEMS TO DO BETTER IN THE AFTERNOON Initialized on 10/21/21 10:37 - END OF NOTE 10/21/21 09:48 Nursing Note by Priya Anderw SPOKE WITH DR. LINARES ON THE PHONE WALK PATIENT IN THE [place] AND PLAN FOR DISCHARGE Initialized on 10/21/21 09:48 - END OF NOTE Code(s): J18.9 - PNEUMONIA, UNSPECIFIED ORGANISM (2) Influenza A Current Visit: Yes Status: Acute Code(s): J10.1 - FLU DUE TO OTH IDENT INFLUENZA VIRUS W OTH RESP MANIFEST (3) Hypokalemia due to loss of potassium Current Visit: Yes Status: Acute Code(s): E87.6 - HYPOKALEMIA
[2021-10-21] MEDS: ZOCOR 20MG PO SCH (21:28)
[2021-10-22] MEDS: Advair Hfa 115/21 Common canister IH SCH (07:14)
[2021-10-22] MEDS: DUONEB 0.5-3 MG/3 ml Neb IH SCH (07:14)
[2021-10-22] MEDS: PULMICORT 0.5 MG/2 ML RESPULES IH SCH (07:15)
[2021-10-22] MEDS: Cozaar 50 MG PO SCH (09:00)
[2021-10-22] MEDS: Klor Con 10 MEQ PO SCH (09:00)
[2021-10-22] MEDS: ECOTRIN 81 MG PO SCH (09:01)
[2021-10-22] MEDS: DELTASONE 20 MG PO SCH (09:01)
[2021-10-22] MEDS: LASIX 20 MG PO SCH (09:01)
[2021-10-22] MEDS: COREG 12.5 MG PO SCH (09:01)
[2021-10-22] MEDS: NORVASC 5 MG PO SCH (09:01)
[2021-10-22] MEDS: THERAGRAN MULTIVITAMIN PO SCH (09:01)
[2021-10-22] MEDS: Calcium 500MG W/Vit D Tablet PO SCH (09:01)
[2021-10-22] MEDS: Pepcid 20 MG PO SCH (09:01)
[2021-10-22] MEDS: PLAVIX 75 MG Tablet PO SCH (09:01)
[2021-10-22] MEDS: ENOXAPARIN SODIUM SQ SCH (09:02)
[2021-10-22 09:13] VITALS: BP 170/88; PULSE 65; O2SAT 93
--- NOTE | 2021-10-22 11:49 | PCM.DS ---
Discharge Summary Date of Admission: 10/16/21 11:00 Admitting Physician: ROSCOE KHANNA Primary Care Provider: ORQUIDEA LINARESYESH Allergies Allergies iodine Allergy (Severe, Verified 10/15/21 17:29) [facility] Summary - Hospital Course Hospital Course: Chief Complaint Diagnosis EXAC COPD, INFLUENZA A Allergies Allergy/AdvReac Type Severity Reaction Status Date / Time iodine Allergy Severe Hives Verified 10/15/21 17:29 Vital Signs (Last 24 hours) Temp Pulse Resp BP Pulse Ox 10/22/21 08:00 97.3 F 65 18 170/88 93 L 10/22/21 07:15 89 18 92 L 10/22/21 04:00 98.2 F 67 20 132/76 94 L 10/21/21 23:34 97.9 F 58 L 17 119/59 96 10/21/21 20:00 97.7 F 61 19 131/85 97 10/21/21 18:37 61 19 97 10/21/21 16:00 98.1 F 63 21 145/70 95 10/21/21 15:19 64 18 96 10/21/21 12:00 97.6 F 61 21 133/64 96 Home Medications Medication Instructions Recorded Confirmed Last Taken Type Alendronate Sodium 70 mg 70 mg PO WEEKLY 10/16/21 10/16/21 10/10/21 History [Fosamax 70 MG] Thai/D3/Mag11/Zinc/[employer]/Chuy/Bor 1 tablet PO BID 10/16/21 10/16/21 10/15/21 History [Caltrate 600+D Plus Tablet] Non-Formulary Drug [Non-Formulary 1 inh IH BID 10/16/21 10/16/21 10/15/21 History Bulk Item] Oseltamivir 75 mg [Tamiflu 75MG 75 mg PO BID 3 Days #6 cap 10/20/21 Unknown Rx Capsule] Albuterol/Ipratropium 3ml Neb* 3 ml IH QID #120 each 10/21/21 Unknown Rx [DUONEB 0.5-3 MG/3 ml Neb] Levofloxacin [Levofloxacin 500 500 mg PO DAILY #3 tablet 10/21/21 Unknown Rx MG Tablet] Methylprednisolone Packet 4 mg PO UD #1 packet 10/21/21 Unknown Rx [Medrol Dosepack] Current Medications Discontinued Medications Generic Name Dose Route Start Last Admin Trade Name Freq PRN Reason Stop Dose Admin Acetaminophen 650 mg 10/15/21 19:50 10/15/21 19:52 Acetaminophen 325 Mg Tablet PO 10/15/21 19:51 650 mg STAT STA Administration Acetaminophen Confirm 10/15/21 19:51 Acetaminophen 325 Mg Tablet Administered 10/15/21 19:52 Dose 650 mg .ROUTE .STK-MED ONE Acetaminophen 650 mg 10/15/21 23:47 Acetaminophen 325 Mg Tablet PO 11/14/21 23:46 Q4H PRN PRN PAIN AND/OR FEVER Albuterol Sulfate 2.5 mg 10/16/21 17:00 Albuterol Sulfate 2.5 Mg/3 Ml [facility] 11/15/21 16:59 QID MICKY Albuterol/Ipratropium 3 ml 10/15/21 17:54 10/15/21 18:39 Ipratropium/Albuterol Sulfate 3 Ml Ampul.Neb 10/15/21 17:55 3 ml STAT ONE Administration Albuterol/Ipratropium Confirm 10/15/21 18:34 Ipratropium/Albuterol Sulfate 3 Ml Ampul.Neb Administered 10/15/21 18:35 Dose 3 ml IH .STK-MED ONE Albuterol/Ipratropium 3 ml 10/16/21 07:00 10/22/21 07:14 Ipratropium/Albuterol Sulfate 3 Ml Ampul.[facility] 11/15/21 06:59 3 ml QIDRT MICKY Administration Albuterol/Ipratropium 3 ml 10/16/21 00:03 10/16/21 00:11 Ipratropium/Albuterol Sulfate 3 Ml Ampul.[facility] 11/15/21 00:02 3 ml Q4HPRN PRN Administration SHORTNESS OF BREATH/WHEEZING Alendronate Sodium 70 mg 10/17/21 10:00 Alendronate Sodium 70 Mg Tablet PO 11/16/21 09:59 WEEKLY MICKY Alendronate Sodium 70 mg 10/18/21 06:00 10/18/21 06:11 Alendronate Sodium 70 Mg Tablet PO 11/17/21 05:59 70 mg Q7D MICKY Administration Amlodipine Besylate 2.5 mg 10/16/21 14:00 10/22/21 09:01 Amlodipine Besylate 5 Mg Tablet PO 11/15/21 13:59 2.5 mg DAILY MICKY Administration Aspirin 81 mg 10/17/21 10:00 10/22/21 09:01 Aspirin 81 Mg Tablet.Ec PO 11/16/21 09:59 81 mg DAILY MICKY Administration Budesonide 0.5 mg 10/20/21 19:00 10/22/21 07:15 Budesonide 0.5 Mg/2 Ml Ampul.Neb. IH 11/19/21 18:59 0.5 mg BIDRT MICKY Administration Calcium Carbonate 1 tab 10/16/21 22:00 10/22/21 09:01 Calcium Carbonate 500 Mg/Vitamin D 1 Tab Tablet PO 11/15/21 21:59 1 tab BID MICKY Administration Carvedilol 25 mg 10/16/21 14:00 10/22/21 09:01 Carvedilol 12.5 Mg Tablet PO 11/15/21 13:59 25 mg BID MICKY Administration Chlorphenir/Hydrocodone Polistirex 5 ml 10/16/21 11:07 10/19/21 21:02 Hydrocodone/Chlorphen P-Stirex 1 Ml Nolvia.Er.12h PO 11/15/21 11:06 5 ml [id number] PRN Administration COUGH Clopidogrel Bisulfate 75 mg 10/17/21 10:00 10/22/21 09:01 Clopidogrel Bisulfate 75 Mg Tablet PO 11/16/21 09:59 75 mg DAILY MICKY Administration Methylprednisolone Sodium 0 mg 10/16/21 14:00 Succinate 80 mg/ Sterile Water IV 11/15/21 13:59 2 ml Q8HT [facility] Dexamethasone Sodium Phosphate 6 mg 10/15/21 21:10 10/15/21 21:56 Dexamethasone Sod Phosphate 10 Mg/Ml IV 10/15/21 21:11 6 mg STAT ONE Administration Dexamethasone Sodium Phosphate Confirm 10/15/21 21:56 Dexamethasone Sod Phosphate 10 Mg/Ml Administered 10/15/21 21:57 Dose 10 mg .ROUTE .STK-MED ONE Enoxaparin Sodium 40 mg 10/16/21 10:00 10/22/21 09:02 Enoxaparin Sodium 40 Mg/0.4 Ml Syringe SQ 11/15/21 09:59 Not Given DAILY [facility] Famotidine 20 mg 10/16/21 22:00 10/22/21 09:01 Famotidine 20 Mg Tablet PO 11/15/21 21:59 20 mg BID MICKY Administration Furosemide 20 mg 10/17/21 10:00 10/22/21 09:01 Furosemide 20 Mg Tablet PO 11/16/21 09:59 20 mg DAILY MICKY Administration Sodium Chloride 1,000 mls @ 100 mls/hr 10/15/21 18:00 10/18/21 06:12 Sodium Chloride 0.9% 1000 Ml IV 11/14/21 17:59 100 mls/hr .Q10H MICKY Administration Remdesivir 200 mg/ Sodium 250 mls @ 125 mls/hr 10/15/21 21:10 10/15/21 22:21 Chloride IV 10/15/21 23:09 Not Given ONCE ONE Insulin Human Lispro 0 unit 10/15/21 23:47 10/20/21 12:59 Insulin Lispro 1 Unit SQ 11/14/21 23:46 2 unit UD PRN Administration HYPERGLYCEMIA Losartan Potassium 25 mg 10/16/21 14:00 10/22/21 09:00 Losartan Potassium 50 Mg Tablet PO 11/15/21 13:59 25 mg BID MICKY Administration Methylprednisolone Sodium Succinate 80 mg 10/16/21 14:00 10/19/21 05:17 Methylprednis Sod Succ 125 Mg/2 Ml Vial IV 11/15/21 13:59 80 mg Q8HT MICKY Administration Methylprednisolone Sodium Succinate 60 mg 10/19/21 14:00 10/20/21 05:09 Methylprednis Sod Succ 125 Mg/2 Ml Vial IV 11/18/21 13:59 60 mg Q8HT MICKY Administration Multivitamins Therapeutic 1 tab 10/16/21 14:00 10/22/21 09:01 Multivitamins,Therapeutic 1 Tab Tab PO 11/15/21 13:59 1 tab DAILY MICKY Administration Non-Formulary Medication 1 tablet 10/16/21 22:00 Thai/D3/Mag11/Zinc/[employer]/Chuy/Bor [Caltrate 600+D Plus Tablet] PO 11/15/21 21:59 BID MICKY Ondansetron HCl 4 mg 10/15/21 17:52 10/15/21 18:56 Ondansetron Hcl 4 Mg/2 Ml Vial IV 10/15/21 17:53 4 mg STAT ONE Administration Ondansetron HCl Confirm 10/15/21 18:42 Ondansetron Hcl 4 Mg/2 Ml Vial Administered 10/15/21 18:43 Dose 4 mg .ROUTE .STK-MED ONE Ondansetron HCl 4 mg 10/15/21 23:47 Ondansetron Hcl 4 Mg/2 Ml Vial IV 11/14/21 23:46 Q6H PRN PRN NAUSEA/VOMITING Oseltamivir Phosphate 75 mg 10/16/21 10:00 10/20/21 21:24 Oseltamivir 75 Mg Cap PO 10/21/21 09:59 75 mg BID MICKY Administration Oseltamivir Phosphate Confirm 10/15/21 23:17 Oseltamivir 75 Mg Cap Administered 10/15/21 23:18 Dose 75 mg PO .STK-MED ONE Phenol 0 ml 10/18/21 13:52 10/18/21 16:12 Phenol/Sodium Phenolate 180 Ml Bottle PO 11/17/21 13:51 1 ml TIDPRN PRN Administration SORE THROAT Polyethylene Glycol 17 gm 10/20/21 09:38 10/20/21 10:09 Polyethylene Glycol 3350 17 Gm Packet PO 17 gm QDP PRN Administration CONSTIPATION Potassium Chloride 20 meq 10/16/21 14:00 10/20/21 10:10 Potassium Chloride 10 Meq Tablet PO 11/15/21 13:59 20 meq DAILY MICKY Administration Potassium Chloride 10 meq 10/20/21 15:00 10/22/21 09:00 Potassium Chloride 10 Meq Tablet PO 11/19/21 14:59 10 meq TID MICKY Administration Prednisone 20 mg 10/20/21 22:00 10/22/21 09:01 Prednisone 20 Mg Tablet PO 11/19/21 21:59 20 mg BID MICKY Administration Fluticasone/Salmeterol 1 each 10/16/21 07:00 10/19/21 20:24 Fluticasone/Salmeterol 250/50 Diskus IH 11/15/21 06:59 Not Given BIDRT MICKY Fluticasone/Salmeterol 1 each 10/16/21 09:00 10/16/21 11:13 Fluticasone/Salmeterol 250/50 Diskus IH 11/15/21 08:59 Not Given BIDRT MICKY Fluticasone/Salmeterol 2 puff 10/16/21 19:00 10/16/21 10:32 Fluticasone/Salmeterol 115/21 - 120 Puff Common Canister IH 11/15/21 18:59 2 puff BIDRT MICKY Administration Fluticasone/Salmeterol 2 puff 10/16/21 19:00 10/22/21 07:14 Fluticasone/Salmeterol 115/ - 120 Puff Common Canister IH 11/15/21 18:59 2 puff BIDRT MICKY Administration Simvastatin 40 mg 10/16/21 22:00 10/21/21 21:28 Simvastatin 20 Mg Tablet PO 11/15/21 21:59 40 mg HS MICKY Administration Intake & Output (Last 24 hours) 10/19/21 10/20/21 10/21/21 10/22/21 11:59 11:59 11:59 11:59 Intake Total 1680 1260 2100 1720 Output Total 3700 2150 3100 2700 Balance -2020 -890 -1000 -980 Weight 69.3 kg 69.3 kg 68.4 kg Laboratory Results (Last 24 hours) 10/22/21 10/21/21 10/21/21 07:34 21:15 16:40 POC Glucometer 108 H 126 H 132 H 10/21/21 11:51 POC Glucometer 153 H Orders (Last 24 hours) Category Date Time Status Discharge Routine Discharge 10/22/21 Ordered Discharge/Telephone Order Routine Discharge 10/22/21 Active CHEST WITHOUT CONTRAST [CT] Routine Exams 10/21/21 10:50 Completed POCT GLUCOSE Stat Lab 10/22/21 07:34 Completed POCT GLUCOSE Stat Lab 10/21/21 11:51 Completed POCT GLUCOSE Stat Lab 10/21/21 16:40 Completed POCT GLUCOSE Stat Lab 10/21/21 21:15 Completed Flutter Therapy UD RT 10/22/21 07:42 Completed Patient Care Notes (Last 24 hours) 10/21/21 14:29 Nursing Note by Hong Greco CALLED DR LINARES, INFORMED HIM PT WOULDNT HAVE A RIDE UNTIL TOMORROW MORNING, HE STATED THAT WAS OK AND MAKE SURE TO DC IN AM Initialized on 10/21/21 14:29 - END OF NOTE 10/21/21 13:31 Nursing Note by Hong Greco SPOKE WITH PT, SHE STATES SHE DOES HAVE A NEB MACHINE AT HOME, WOULD LIKE TO WAIT ON HHC TO SEE HOW SHE DOES AT HOME AND THEN DECIDE IF SHE WANTS IT, SHE DOES NOT HAVE ANYONE TO TAKE HER HOME TODAY, HER BROTHER IS HAVING A MALACHI WITH HIS FAMILY BUT COULD PICK HER UP IN THE MORNING. CALLED DR LINARES, DID NOT ANSWER, LM Initialized on 10/21/21 13:31 - END OF NOTE 10/21/21 12:57 Nursing Note by Hong Greco CALLED CT RESULTS TO DR LINARES AND INFORMED HIM PT STATES SHES STILL NOT SURE WITH HER BREATHING SHES NOT CONFIDENT AND HAS FELT BETTER. HE STATED TO SEE IF PT HAS NEB MACHINE AT HOME, EXPLAIN TO HER SHE WILL FEEL BAD FOR FEW MORE DAYS IT WILL TAKE TIME BUT WILL SEND HOME ON MEDS, NEBULIZER AND WOULD LIKE TO SET UP C AND TO F/U WITH HIM ON SUNDAY IN [place] AT 09:30. IF PT DOES NOT HAVE NEB MACHINE SEND ONE IN, DUONEB QID, MEDROL DOSE PACK, LEVOFLOXACIN 500MG DAILY X3 DAYS, MAKE SURE PT FINISHED TAMIFLU 5 DAY DOSES Initialized on 10/21/21 12:57 - END OF NOTE - Vitals & Intake/Output Vital Signs: Vital Signs Temperature 97.3 F 10/22/21 08:00 Pulse Rate 65 10/22/21 08:00 Respiratory Rate 18 10/22/21 08:00 Blood Pressure 170/88 10/22/21 08:00 O2 Sat by Pulse Oximetry 93 L 10/22/21 08:00 Intake & Output: Intake & Output 10/19/21 10/20/21 10/21/21 10/22/21 11:59 11:59 11:59 11:59 Intake Total 1680 1260 2100 1720 Output Total 3700 2150 3100 2700 Balance -2020 -890 -1000 -980 Weight 69.3 kg 69.3 kg 68.4 kg - Lab Result Diagrams: 10/20/21 10:00 10/21/21 05:00 Lab Results-Last 24 Hrs: Lab Results-Last 24 Hours 10/21/21 10/21/21 10/21/21 Range/Units 11:51 16:40 21:15 POC Glucometer 153 H 132 H 126 H (74 to 106) mg/dL 10/22/21 Range/Units 07:34 POC Glucometer 108 H (74 to 106) mg/dL Micro Results-Entire Visit: Microbiology 10/15/21 18:45 Blood Culture Gram Stain - Final Blood Not Reportable Blood Culture - Final NO GROWTH 10/15/21 18:40 Blood Culture Gram Stain - Final Blood Not Reportable Blood Culture - Final NO GROWTH Accuchecks Date 10/22/21 Time 07:52 - Radiology Exams Ordered Rad Exams-Entire Visit: Radiology Procedures Category Date Time Status CHEST WITHOUT CONTRAST [CT] Routine Exams 10/21/21 10:50 Completed - Procedures and Test Procedures and Tests throughout Hospitalization: Therapy Orders & Screens 10/15/21 23:33 Respiratory Therapy Assessment DAILY Comment: 10/15/21 23:47 Oxygen Nasal Cannula 3 lpm Comment: 10/22/21 07:42 Flutter Therapy UD Comment: Diagnosis: EXAC COPD, INFLUENZA A Discharge Exam General Appearance: no apparent distress, alert Neurologic Exam: alert, oriented x 3, cooperative, normal mood/affect, nml cerebellar function, sensation nml, No motor deficits Eye Exam: PERRL, EOMI, eyes nml inspection Ears, Nose, Throat Exam: normal ENT inspection, pharynx normal, moist mucous membranes Neck Exam: normal inspection, non-tender, supple, full range of motion Respiratory Exam: normal breath sounds, lungs clear, No respiratory distress Cardiovascular Exam: regular rate/rhythm, normal heart sounds Gastrointestinal/Abdomen Exam: soft, No tenderness, No mass Pelvic Exam: deferred Rectal Exam: deferred Back Exam: normal inspection, normal range of motion, No CVA tenderness, No vertebral tenderness Extremity Exam: normal inspection, normal range of motion Skin Exam: normal color, warm, dry Final Diagnosis/Problem List - Final Discharge Diagnosis/Problem (1) Bilateral pneumonia Status: Acute Assessment & Plan: Improving Last Vital Signs Temp 97.3 F 10/22/21 08:00 Pulse 65 10/22/21 08:00 Resp 18 10/22/21 08:00 BP 170/88 10/22/21 08:00 Pulse Ox 93 L 10/22/21 08:00 Allergies iodine Allergy (Severe, Verified 10/15/21 17:29) Hives Intake & Output 10/21/21 10/22/21 11:59 11:59 Intake Total 2100 1720 Output Total 3100 2700 Balance -1000 -980 Weight 68.4 kg Orders 10/22/21 Discharge Routine Discharge/Telephone Order Routine Lab Tests 12/10/21/21 10/21/21 11:51 16:40 21:15 POC Glucometer 153 H 132 H 126 H 10/22/21 07:34 POC Glucometer 108 H Code(s): J18.9 - PNEUMONIA, UNSPECIFIED ORGANISM (2) Influenza A Status: Resolved Code(s): J10.1 - FLU DUE TO OTH IDENT INFLUENZA VIRUS W OTH RESP MANIFEST (3) Hypokalemia due to loss of potassium Status: Resolved Code(s): E87.6 - HYPOKALEMIA - Discharge Discharge Date: 10/22/21 Disposition: Home, Self-Care Condition: Stable Prescriptions: New Oseltamivir 75 mg [Tamiflu 75MG Capsule] 75 mg PO BID 3 Days #6 cap Albuterol/Ipratropium 3ml Neb* [DUONEB 0.5-3 MG/3 ml Neb] 3 ml IH QID #120 each Levofloxacin [Levofloxacin 500 MG Tablet] 500 mg PO DAILY #3 tablet Methylprednisolone Packet [Medrol Dosepack] 4 mg PO UD #1 packet Continue Potassium Chloride [Klor-Con] 20 meq PO DAILY Losartan Potassium [Cozaar] 25 mg PO BID Furosemide [Lasix] 20 mg PO DAILY Famotidine 20 mg [Pepcid 20 MG] 20 mg PO BID Clopidogrel Bisulfate 75 mg [PLAVIX 75 MG Tablet] 75 mg PO DAILY Carvedilol [Coreg] 25 mg PO BID Aspirin EC 81 mg [Ecotrin 81 mg] 81 mg PO DAILY Amlodipine Besylate [Norvasc] 2.5 mg PO DAILY Albuterol 2.5 mg/3 ml Neb [Proventil 2.5 mg/3 ml Neb] 2.5 mg IH QID Rosuvastatin Calcium [Crestor] 20 mg PO HS Multivitamin [Multiple Vitamins] 1 each PO DAILY Alendronate Sodium 70 mg [Fosamax 70 MG] 70 mg PO WEEKLY Non-Formulary Drug [Non-Formulary Bulk Item] 1 inh IH BID Thai/D3/Mag11/Zinc/[employer]/Chuy/Bor [Caltrate 600+D Plus Tablet] 1 tablet PO BID Instructions: Flu, Adult (DC), Exacerbation of COPD (DC) Additional Instructions: INSURANCE NAVIGATOR IS NIKITA GAYLE- [phone] LINARES Sunday IN [place]
== END 2021-10-22 09:40 | disposition home or self-care (01) | DRG 193 ==
LOC: ED 17:24 → MED SURG 23:27 → OBSVTOIN 10-16 11:00
PROVIDERS: ADMIT Family Medicine; ATTEND General Practice
DX: J18.9 Pneumonia, unspecified organism (principal); J96.01 Acute respiratory failure with hypoxia; J10.1 Influenza due to other identified influenza virus with other respiratory manifestations; E87.6 Hypokalemia; J44.9 Chronic obstructive pulmonary disease, unspecified; I25.10 Atherosclerotic heart disease of native coronary artery without angina pectoris; E78.5 Hyperlipidemia, unspecified; I10 Essential (primary) hypertension; Z79.899 Other long term (current) drug therapy; Z79.01 Long term (current) use of anticoagulants; Z20.828 Contact with and (suspected) exposure to other viral communicable diseases
CPT/HCPCS: 0241U; 36000; 36415; 36600; 71045; 71250; 74176; 80048; 80053; 82375; 82803; 82947; 83690; 83880; 84145; 84484; 85025; 85027; 87040; 93005; 94640; 94667; 94760; 96374; 96375; 99284; G0378; J1100; J1650; J1817; J2405; J2930; A9270-GY

== ENCOUNTER 2021-10-24 10:56 | Inpatient (IN) | payer MEDICARE, BC ==
[2021-10-24] MEDS ORDERED: DUONEB 0.5-3 MG/3 ml Neb IH ONE ×2 (11:42→12:07)
--- NOTE | 2021-10-24 12:11 | XRAY ---
Indication: Cough and short of breath. Comparison: October 20, 2021. Portable chest unchanged again demonstrating COPD, CIPD, and a few tiny calcified granulomas. 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 No new/acute abnormalities.
[2021-10-24 12:29] LABS: Hematocrit 44.3 % (35-47); Hemoglobin 14.6 gm/dl (12.0-16.0); Mean Cell Volume 98.7 fl (78-100); Mean Corpuscular Hemoglobin 32.5 pg (26-32); Mean Platelet Volume 9.6 fl (7.5-11.0); Platelet Count 212 K/mm3 (150-450); Red Blood Count 4.49 M/mm3 (4.1-5.4); Red Cell Distribution Width 12.7 % (11.5-14.0); White Blood Count 15.5 K/mm3 (4.0-10.5)
[2021-10-24 12:50] LABS: ALBUMIN 4.3 g/dL (3.5-5.0); ALKALINE PHOSPHATASE 81 U/L (38-126); ANION GAP 15.8 MEQ/L (5-15); BLOOD UREA NITROGEN 21 mg/dL (7-17); CHLORIDE 96 mmol/L (98-107); Calcium 9.2 mg/dL (8.4-10.2); Carbon Dioxide 24 mmol/L (22-30); Creatinine 1 0.92 mg/dL (0.52-1.04); EST GLOMERULAR FILTRATION RATE > 60.0 ML/MIN; Glucose 86 mg/dL (74-106); MAGNESIUM 2.4 mg/dL (1.6-2.3); NT PRO BNP 882 pg/mL (0-1800); Potassium 4.1 mmol/L (3.5-5.1); SGOT/AST 30 U/L (14-36); SGPT/ALT 23 U/L (0-35); SODIUM 131 mmol/L (137-145); Total Protein 7.1 g/dL (6.3-8.2)
[2021-10-24] MEDS ORDERED: Levofloxacin 500MG/100ML D5W 500 MG/100 ML BAG IV STA (14:01)
[2021-10-24] MEDS ORDERED: DECADRON 10MG INJ. IV ONE (14:01)
[2021-10-24] MEDS ORDERED: XYLOCAINE 1% HCL 20 ML MDV ONE (15:10)
[2021-10-24 15:43] LABS: Neutrophils 77 % (36.0-66.0); Total Cells Counted 100
[2021-10-24 15:45] LABS: Lymphocytes 12 % (24-44); Metamyelocyte 2 %; Monocyte 9 % (0.0-12.0); Platelet Estimate NORMAL (NORMAL)
--- NOTE | 2021-10-24 15:52 | ERPHSYRPT ---
- History of Present Illness Time Seen by Provider: 10/24/21 11:30 Source: patient Exam Limitations: no limitations Patient Subjective Stated Complaint: Pt was released from the hospital on after a 6-7 day stay with the flu and pt continues to be weak and has a cough Triage Nursing Assessment: Pt brought to the ER by EMS, vitals wnl, rates overall body pain as 8/10, hale mucus sputum, reports hurting in her chest from coughing and hard to get the breaths, coarse crackles usman, wheezing, pulses normal, skin n/w/d Physician History: 76 years old female who was recently admitted for respiratory failure with influenza, will discharge day before yesterday presented back with increasing generalized weakness fatigue tiredness and some shortness of breath with activity. Reports decreased oral intake with lack of energy to do her routine activities. Reports having generalized body aches, worsening cough productive of clear to yellow sputum despite being on antibiotics. Timing/Duration: week(s) (1), constant, gradual onset, worse Severity: moderate Modifying Factors: Worsens With: movement Associated Symptoms: nausea, shortness of breath, loss of appetite, malaise, weakness Allergies/Adverse Reactions: iodine Allergy (Severe, Verified 10/24/21 11:11) Hives Home Medications: Albuterol 2.5 mg/3 ml Neb [Proventil 2.5 mg/3 ml Neb] 2.5 mg IH QID 08/06/20 [History] Amlodipine Besylate [Norvasc] 2.5 mg PO DAILY 08/06/20 [History] Aspirin EC 81 mg [Ecotrin 81 mg] 81 mg PO DAILY 08/06/20 [History] Carvedilol [Coreg] 25 mg PO BID 08/06/20 [History] Clopidogrel Bisulfate 75 mg [PLAVIX 75 MG Tablet] 75 mg PO DAILY 08/06/20 [History] Famotidine 20 mg [Pepcid 20 MG] 20 mg PO BID 08/06/20 [History] Furosemide [Lasix] 20 mg PO DAILY 08/06/20 [History] Losartan Potassium [Cozaar] 25 mg PO BID 08/06/20 [History] Potassium Chloride [Klor-Con] 20 meq PO DAILY 10/16/20 [History] Rosuvastatin Calcium [Crestor] 20 mg PO HS 08/06/20 [History] Multivitamin [Multiple Vitamins] 1 each PO DAILY 05/23/21 [History] Alendronate Sodium 70 mg [Fosamax 70 MG] 70 mg PO WEEKLY 10/16/21 [History] Thai/D3/Mag11/Zinc/Embedded Software Test Engineer/Chuy/Bor [Caltrate 600+D Plus Tablet] 1 tablet PO BID 10/16/21 [History] Non-Formulary Drug [Non-Formulary Bulk Item] 1 inh IH BID 10/16/21 [History] Hx Tetanus, Diphtheria Vaccination/Date Given: No (unknown) Hx Influenza Vaccination/Date Given: Yes Hx Pneumococcal Vaccination/Date Given: Yes Travel Risk - International Travel Have you traveled outside of the country in past 3 weeks: No - Coronavirus Screening Are you exhibiting any of the following symptoms?: Yes Symptoms: Cough: New Onset, Shortness of Breath Close contact with a COVID-19 positive Pt in past 14-21 Days: No - Vaccine Status Have you recieved a Covid-19 vaccination: Yes Manager Paid: Moderna - Vaccination Dates Date of 2cond Vaccination (if applicable): 02/01/2021 Comment: got the booster a few days ago - Review of Systems Constitutional: Chills, Fatigue, Weakness Eyes: No Symptoms Ears, Nose, & Throat: No Symptoms Respiratory: Cough, Dyspnea, Wheezing Cardiac: No Symptoms Abdominal/Gastrointestinal: Nausea Genitourinary Symptoms: No Symptoms Musculoskeletal: Myalgias Neurological: No Symptoms Psychological: No Symptoms Endocrine: No Symptoms Hematologic/Lymphatic: No Symptoms Immunological/Allergic: No Symptoms - Past Medical History Pertinent Past Medical History: Yes Neurological History: No Pertinent History ENT History: Cataracts Cardiac History: Coronary Artery Disease, High Cholesterol, Hypertension Respiratory History: COPD, Emphysema, Pneumonia Endocrine Medical History: No Pertinent History Musculoskeletal History: Arthritis, Osteoarthritis GI Medical History: GERD, Polyps History: No Pertinent History Psycho-Social History: No Pertinent History Female Reproductive Disorders: No Pertinent History - Past Surgical History Past Surgical History: Yes Neuro Surgical History: No Pertinent History Cardiac: CABG Respiratory: No Pertinent History Gastrointestinal: Appendectomy, Cholecystectomy Genitourinary: No Pertinent History Musculoskeletal: Orthopedic Surgery Female Surgical History: Hysterectomy, Tubal Ligation Other Surgical History: 2 screws in lower back,carpal tunnel release to right wrist - Social History Smoking Status: Former smoker Exposure to second hand smoke: No Drug Use: none Patient Lives Alone: Yes - Female History Hx Now: No - Nursing Vital Signs Nursing Vital Signs: Initial Vital Signs Temperature 98.2 F 10/24/21 10:58 Pulse Rate 82 10/24/21 10:58 Respiratory Rate 14 10/24/21 10:58 Blood Pressure 123/74 10/24/21 10:58 O2 Sat by Pulse Oximetry 99 10/24/21 10:58 Pain Scale Pain Intensity 0 - Physical Exam General Appearance: no apparent distress, alert Eye Exam: PERRL/EOMI, eyes nml inspection Ears, Nose, Throat Exam: TMs normal, pharyngeal erythema Neck Exam: normal inspection, non-tender, supple, full range of motion Respiratory Exam: diminished breath sounds, rhonchi, wheezing Cardiovascular Exam: regular rate/rhythm, normal heart sounds Gastrointestinal/Abdomen Exam: soft, normal bowel sounds, No tenderness Back Exam: normal inspection, normal range of motion Extremity Exam: normal inspection, normal range of motion Neurologic Exam: alert, oriented x 3, cooperative, button and buckle maker II-XII nml as tested, normal mood/affect Skin Exam: normal color SpO2 Interpretation: borderline oxygenation SpO2: 92 O2 Delivery: Room Air Procedures - Central Line Time Of Procedure: 16:34 Timeout: Performed Central Line Lumen: triple Lumen Size: 7 [place] Central Line Procedure: chlorahexadine prep, sterile drapes applied, sterile dressing applied, Aseptic Technique Central Line Postion: femoral (R) Anesthesia: 1% Lidocaine cc's of anesthesia: 4 Ultrasound Guided Placement: Yes Complications: none Central Line Post Position: sutured, good blood return - Course EKG Interpreted by Me: RATE (72), Sinus Rhythm, NORMAL AXIS, NORMAL INTERVALS, Non-specific ST Changes (Mild ST depression in inferior leads. Nonspecific T wave changes in anterior leads) Ordered Tests: Active Orders 24 hr Category Date Time Status CBC W DIFF AM.LAB Lab 10/25/21 04:30 Completed CMP AM.LAB Lab 10/25/21 04:30 Completed TROPONIN Q3H Lab 10/24/21 20:52 Completed TROPONIN Q3H Lab 10/24/21 23:45 Completed Medication Summary Generic Name Dose Route Start Last Admin Trade Name Freq PRN Reason Stop Dose Admin Acetaminophen 650 mg 10/24/21 17:44 10/25/21 10:04 Acetaminophen 325 Mg Tablet PO 11/23/21 17:43 650 mg Q4H PRN PRN Administration PAIN AND/OR FEVER Albuterol/Ipratropium 3 ml 10/24/21 19:00 10/25/21 19:07 Ipratropium/Albuterol Sulfate 3 Ml Ampul.Neb IH 11/23/21 18:59 3 ml Q6HRT MICKY Administration Alendronate Sodium 70 mg 10/30/21 06:00 Alendronate Sodium 70 Mg Tablet PO 11/29/21 05:59 WEEKLY MICKY Amlodipine Besylate 2.5 mg 10/25/21 10:00 10/25/21 10:03 Amlodipine Besylate 5 Mg Tablet PO 11/24/21 09:59 2.5 mg DAILY MICKY Administration Aspirin 81 mg 10/25/21 10:00 10/25/21 10:03 Aspirin 81 Mg Tablet.Ec PO 11/24/21 09:59 81 mg DAILY MICKY Administration Calcium Carbonate 1 tab 10/25/21 10:00 10/25/21 10:03 Calcium Carbonate 500 Mg/Vitamin D 1 Tab Tablet PO 11/24/21 09:59 1 tab BID MICKY Administration Carvedilol 25 mg 10/25/21 08:00 10/25/21 17:44 Carvedilol 12.5 Mg Tablet PO 11/24/21 07:59 25 mg BIDWM MICKY Administration Clopidogrel Bisulfate 75 mg 10/25/21 10:00 10/25/21 10:03 Clopidogrel Bisulfate 75 Mg Tablet PO 11/24/21 09:59 75 mg DAILY MICKY Administration Famotidine 20 mg 10/25/21 10:00 10/25/21 10:04 Famotidine 20 Mg Tablet PO 11/24/21 09:59 20 mg BID MICKY Administration Furosemide 20 mg 10/25/21 10:00 Furosemide 20 Mg Tablet PO 11/24/21 09:59 DAILY PRN PRN diuresis Levofloxacin/Dextrose 500 mg in 100 mls @ 100 mls/hr 10/25/21 10:00 10/25/21 10:04 Levofloxacin 500mg/100ml D5w IV 11/24/21 09:59 100 mls/hr Q24H10 MICKY Administration Lactated Ringer's 1,000 mls @ 100 mls/hr 10/25/21 06:00 10/25/21 18:29 Lactated Ringers IV 02/03/22 05:59 100 mls/hr .Q10H MICKY Administration Insulin Human Lispro 0 unit 10/25/21 13:49 Insulin Lispro 1 Unit SQ 11/24/21 13:48 UD PRN HYPERGLYCEMIA Losartan Potassium 25 mg 10/25/21 10:00 10/25/21 10:03 Losartan Potassium 50 Mg Tablet PO 11/24/21 09:59 25 mg BID MICKY Administration Methylprednisolone Sodium Succinate 80 mg 10/25/21 12:00 10/25/21 17:45 Methylprednisolone Sod Suc 40m 40 Mg/Ml Vial IV 11/24/21 11:59 80 mg Q6HT MICKY Administration Multivitamins Therapeutic 1 tab 10/25/21 10:00 10/25/21 10:03 Multivitamins,Therapeutic 1 Tab Tab PO 11/24/21 09:59 1 tab DAILY MICKY Administration Oseltamivir Phosphate 75 mg 10/25/21 10:00 10/25/21 10:04 Oseltamivir 75 Mg Cap PO 10/27/21 22:01 75 mg BID MICKY Administration Pantoprazole Sodium 40 mg 10/25/21 10:00 10/25/21 10:03 Pantoprazole 40 Mg Vial IV 11/24/21 09:59 40 mg Q24H10 MICKY Administration Polyethylene Glycol 17 gm 10/24/21 18:51 Polyethylene Glycol 3350 17 Gm Packet PO 11/23/21 18:50 DAILY PRN PRN CONSTIPATION Potassium Chloride 20 meq 10/25/21 10:00 10/25/21 10:03 Potassium Chloride 10 Meq Tablet PO 11/24/21 09:59 20 meq DAILY MICKY Administration Fluticasone/Salmeterol 2 puff 10/25/21 07:00 10/25/21 19:07 Fluticasone/Salmeterol 115/21 - 120 Puff Common Canister IH 11/24/21 06:59 2 puff BIDRT MICKY Administration Simvastatin 40 mg 10/25/21 22:00 Simvastatin 20 Mg Tablet PO 11/24/21 21:59 HS MICKY Discontinued Medications Generic Name Dose Route Start Last Admin Trade Name Freq PRN Reason Stop Dose Admin Albuterol/Ipratropium 3 ml 10/24/21 11:42 10/24/21 12:20 Ipratropium/Albuterol Sulfate 3 Ml Ampul.Neb IH 10/24/21 11:43 3 ml STAT ONE Administration Albuterol/Ipratropium Confirm 10/24/21 12:07 Ipratropium/Albuterol Sulfate 3 Ml Ampul.Neb Administered 10/24/21 12:08 Dose 3 ml IH .STK-MED ONE Methylprednisolone Sodium 0 mg 10/24/21 19:00 10/24/21 21:53 Succinate 40 mg/ Sterile Water IV 11/23/21 18:59 40 mg 1 ml Q8H MICKY Administration Dexamethasone Sodium Phosphate 6 mg 10/24/21 14:01 10/24/21 16:26 Dexamethasone Sod Phosphate 10 Mg/Ml IV 10/24/21 14:02 6 mg STAT ONE Administration Dexamethasone Sodium Phosphate Confirm 10/24/21 16:15 Dexamethasone Sod Phosphate 10 Mg/Ml Administered 10/24/21 16:16 Dose 10 mg .ROUTE .STK-MED ONE Levofloxacin/Dextrose 500 mg in 100 mls @ 100 mls/hr 10/24/21 14:01 10/24/21 16:25 Levofloxacin 500mg/100ml D5w IV 10/24/21 15:00 100 mls/hr STAT STA 100 mls/hr Administration Sodium Chloride 1,000 mls @ 100 mls/hr 10/24/21 16:00 10/25/21 04:06 Sodium Chloride 0.9% 1000 Ml IV 11/23/21 15:59 100 mls/hr .Q10H MICKY Administration Levofloxacin/Dextrose Confirm 10/24/21 16:16 Levofloxacin 500mg/100ml D5w Administered 10/24/21 16:17 Dose 500 mg in 100 mls @ ud IV .STK-MED ONE Lidocaine HCl Confirm 10/24/21 15:10 Lidocaine Hcl 1% 20 Ml Mdv 20 Ml Ml Administered 10/24/21 15:11 Dose 5 ml .ROUTE .STK-MED ONE Methylprednisolone Sodium Succinate Confirm 10/24/21 21:51 Methylprednisolone Sod Suc 40m 40 Mg/Ml Vial Administered 10/24/21 21:52 Dose 40 mg .ROUTE .STK-MED ONE Methylprednisolone Sodium Succinate 40 mg 10/25/21 06:00 10/25/21 05:38 Methylprednisolone Sod Suc 40m 40 Mg/Ml Vial IV 11/24/21 05:59 40 mg Q8HT MICKY Administration Fluticasone/Salmeterol Confirm 10/24/21 19:04 Fluticasone/Salmeterol 120 Puff Aer.W.Adap Administered 10/24/21 19:05 Dose 1 puff IH .STK-MED ONE Lab/Rad Data: Laboratory Result Diagrams 10/24/21 12:00 10/24/21 12:00 Laboratory Results 10/24/21 10/24/21 10/24/21 Range/Units 16:16 16:11 16:02 WBC (4.0-10.5) K/mm3 RBC (4.1-5.4) M/mm3 Hgb (12.0-16.0) gm/dl Hct (35-47) % MCV (78-100) fl MCH (26-32) pg MCHC (32-36) g/dl RDW (11.5-14.0) % Plt Count (150-450) K/mm3 MPV (7.5-11.0) fl Segmented Neutrophils (36.0-66.0) % Lymphocytes (Manual) (24-44) % Monocytes (Manual) (0.0-12.0) % Metamyelocytes % Platelet Estimate (NORMAL) RBC Morphology Sodium (137-145) mmol/L Potassium (3.5-5.1) mmol/L Chloride (98-107) mmol/L Carbon Dioxide (22-30) mmol/L Anion Gap (5-15) MEQ/L BUN (7-17) mg/dL Creatinine (0.52-1.04) mg/dL Estimated GFR ML/MIN Glucose (74-106) mg/dL Lactic Acid (0.4-2.0) Calcium (8.4-10.2) mg/dL Magnesium (1.6-2.3) mg/dL Total Bilirubin (0.2-1.3) mg/dL AST (14-36) U/L ALT (0-35) U/L Alkaline Phosphatase (38-126) U/L Troponin I < 0.012 (0.000-0.034) ng/mL NT-Pro-B Natriuret Pep (0-1800) pg/mL Serum Total Protein (6.3-8.2) g/dL Albumin (3.5-5.0) g/dL Urine Color YELLOW (YELLOW) Urine Appearance CLEAR (CLEAR) Urine pH 8.0 (5-6) Ur Specific [place] 1.009 (1.005-1.025) Urine Protein NEGATIVE (Negative) Urine Ketones SMALL (NEGATIVE) Urine Blood NEGATIVE (0-5) Estuardo/ul Urine Nitrite NEGATIVE (NEGATIVE) Urine Bilirubin NEGATIVE (NEGATIVE) Urine Urobilinogen NEGATIVE (0-1) mg/dL Ur Leukocyte Esterase NEGATIVE (NEGATIVE) Urine WBC (Auto) NONE (0-5) /HPF Urine RBC (Auto) 0-2 (0-2) /HPF U Epithel Cells (Auto) NONE (FEW) /HPF Urine Bacteria (Auto) NONE (NEGATIVE) /HPF Urine Culture Reflexed YES (NO) Urine Glucose NEGATIVE (NEGATIVE) mg/dL Influenza Type A Ag POSITIVE (NEGATIVE) Influenza Type B Ag NEGATIVE (NEGATIVE) RSV (PCR) NEGATIVE (Negative) SARS-CoV-2 (PCR) NEGATIVE (NEGATIVE) 10/24/21 10/24/21 10/24/21 Range/Units 12:15 12:00 12:00 WBC (4.0-10.5) K/mm3 RBC (4.1-5.4) M/mm3 Hgb (12.0-16.0) gm/dl Hct (35-47) % MCV (78-100) fl MCH (26-32) pg MCHC (32-36) g/dl RDW (11.5-14.0) % Plt Count (150-450) K/mm3 MPV (7.5-11.0) fl Segmented Neutrophils (36.0-66.0) % Lymphocytes (Manual) (24-44) % Monocytes (Manual) (0.0-12.0) % Metamyelocytes % Platelet Estimate (NORMAL) RBC Morphology Sodium 131 L (137-145) mmol/L Potassium 4.1 (3.5-5.1) mmol/L Chloride 96 L (98-107) mmol/L Carbon Dioxide 24 (22-30) mmol/L Anion Gap 15.8 H (5-15) MEQ/L BUN 21 H (7-17) mg/dL Creatinine 0.92 (0.52-1.04) mg/dL Estimated GFR > 60.0 ML/MIN Glucose 86 (74-106) mg/dL Lactic Acid 2.0 (0.4-2.0) Calcium 9.2 (8.4-10.2) mg/dL Magnesium 2.4 H (1.6-2.3) mg/dL Total Bilirubin 1.00 (0.2-1.3) mg/dL AST 30 (14-36) U/L ALT 23 (0-35) U/L Alkaline Phosphatase 81 (38-126) U/L Troponin I < 0.012 (0.000-0.034) ng/mL NT-Pro-B Natriuret Pep 882 (0-1800) pg/mL Serum Total Protein 7.1 (6.3-8.2) g/dL Albumin 4.3 (3.5-5.0) g/dL Urine Color (YELLOW) Urine Appearance (CLEAR) Urine pH (5-6) Ur Specific [place] (1.005-1.025) Urine Protein (Negative) Urine Ketones (NEGATIVE) Urine Blood (0-5) Estuardo/ul Urine Nitrite (NEGATIVE) Urine Bilirubin (NEGATIVE) Urine Urobilinogen (0-1) mg/dL Ur Leukocyte Esterase (NEGATIVE) Urine WBC (Auto) (0-5) /HPF Urine RBC (Auto) (0-2) /HPF U Epithel Cells (Auto) (FEW) /HPF Urine Bacteria (Auto) (NEGATIVE) /HPF Urine Culture Reflexed (NO) Urine Glucose (NEGATIVE) mg/dL Influenza Type A Ag (NEGATIVE) Influenza Type B Ag (NEGATIVE) RSV (PCR) (Negative) SARS-CoV-2 (PCR) (NEGATIVE) 10/24/21 Range/Units 12:00 WBC 15.5 H (4.0-10.5) K/mm3 RBC 4.49 (4.1-5.4) M/mm3 Hgb 14.6 (12.0-16.0) gm/dl Hct 44.3 (35-47) % MCV 98.7 (78-100) fl MCH 32.5 H (26-32) pg MCHC 33.0 (32-36) g/dl RDW 12.7 (11.5-14.0) % Plt Count 212 (150-450) K/mm3 MPV 9.6 (7.5-11.0) fl Segmented Neutrophils 77 H (36.0-66.0) % Lymphocytes (Manual) 12 L (24-44) % Monocytes (Manual) 9 (0.0-12.0) % Metamyelocytes 2 % Platelet Estimate NORMAL (NORMAL) RBC Morphology NORMAL Sodium (137-145) mmol/L Potassium (3.5-5.1) mmol/L Chloride (98-107) mmol/L Carbon Dioxide (22-30) mmol/L Anion Gap (5-15) MEQ/L BUN (7-17) mg/dL Creatinine (0.52-1.04) mg/dL Estimated GFR ML/MIN Glucose (74-106) mg/dL Lactic Acid (0.4-2.0) Calcium (8.4-10.2) mg/dL Magnesium (1.6-2.3) mg/dL Total Bilirubin (0.2-1.3) mg/dL AST (14-36) U/L ALT (0-35) U/L Alkaline Phosphatase (38-126) U/L Troponin I (0.000-0.034) ng/mL NT-Pro-B Natriuret Pep (0-1800) pg/mL Serum Total Protein (6.3-8.2) g/dL Albumin (3.5-5.0) g/dL Urine Color (YELLOW) Urine Appearance (CLEAR) Urine pH (5-6) Ur Specific [place] (1.005-1.025) Urine Protein (Negative) Urine Ketones (NEGATIVE) Urine Blood (0-5) Estuardo/ul Urine Nitrite (NEGATIVE) Urine Bilirubin (NEGATIVE) Urine Urobilinogen (0-1) mg/dL Ur Leukocyte Esterase (NEGATIVE) Urine WBC (Auto) (0-5) /HPF Urine RBC (Auto) (0-2) /HPF U Epithel Cells (Auto) (FEW) /HPF Urine Bacteria (Auto) (NEGATIVE) /HPF Urine Culture Reflexed (NO) Urine Glucose (NEGATIVE) mg/dL Influenza Type A Ag (NEGATIVE) Influenza Type B Ag (NEGATIVE) RSV (PCR) (Negative) SARS-CoV-2 (PCR) (NEGATIVE) - Progress Progress: improved Progress Note: 10/24/21 15:51 She is given steroids and breathing treatment elevation feeling better but her oxygen saturation is borderline around 89/90%, placed on 2 L oxygen. Chest x- ray did not show any acute findings. Her white count is 15. Discussed with , reviewed history, work-up and he agreed with admission and continue with Levaquin and steroids along with gentle hydration. Discussed with : Nishi Will see patient in: hospital (observation) Counseled pt/family regarding: lab results, diagnosis, need for follow-up, rad results - Departure Departure Disposition: Observation Clinical Impression: Influenzal pneumonia, Generalized weakness Condition: Stable Critical Care Time: No
[2021-10-24] MEDS ORDERED: DECADRON 10MG INJ. ONE (16:15)
[2021-10-24] MEDS ORDERED: Levofloxacin 500MG/100ML D5W 500 MG/100 ML BAG IV ONE (16:16)
[2021-10-24] MEDS: Sodium Chloride 0.9% 1000 ML 1,000 ML IV SCH ×2 (16:25→18:02)
[2021-10-24 16:59] LABS: INFLUENZA B NEGATIVE (NEGATIVE); RESPIRATORY SYNCTIAL VIRUS NEGATIVE (Negative); SARS-CoV-2 Xpert Express NEGATIVE (NEGATIVE)
[2021-10-24 17:07] LABS: INFLUENZA A POSITIVE (NEGATIVE)
[2021-10-24] MEDS ORDERED: TYLENOL 325 MG PO PRN (17:44)
[2021-10-24 17:49] LABS: Appearance CLEAR (CLEAR); Bilirubin NEGATIVE (NEGATIVE); Blood NEGATIVE Ery/ul (0-5); Glucose NEGATIVE (NEGATIVE); Ketones SMALL (NEGATIVE); Leukocyte Esterase NEGATIVE (NEGATIVE); Nitrite NEGATIVE (NEGATIVE); Protein,Urine Dip NEGATIVE (Negative); RBC 0-2 /HPF (0-2); Specific Gravity 1.009 (1.005-1.025); Urobilinogen NEGATIVE mg/dL (0-1)
[2021-10-24] MEDS: DUONEB 0.5-3 MG/3 ml Neb IH SCH (18:50)
[2021-10-24] MEDS ORDERED: solu-MEDROL 40 MG, Sterile H2O 10 ml 1 ML IV SCH ×2 (19:00)
--- NOTE | 2021-10-24 19:02 | PCM.HP ---
History of Present Illness - Chief Complaint Chief Complaint: shortness of breath for 1 week History of Present Illness: is a 76 year old female.ho was recently admitted for respiratory failure with influenza, will discharge day before yesterday presented back with increasing generalized weakness fatigue tiredness and some shortness of breath with activity. Reports decreased oral intake with lack of energy to do her routine activities. Reports having generalized body aches, worsening cough productive of clear to yellow sputum despite being on antibiotics. Timing/Duration: week(s) (1), constant, gradual onset, worse Severity: moderate Modifying Factors: Worsens With: movement Associated Symptoms: nausea, shortness of breath, loss of appetite, malaise, weakness - Review of Systems Constitutional: No Fever, No Chills Eyes: No Symptoms Ears, Nose, & Throat: No Symptoms Respiratory: Short Of Breath, Wheezing, No Cough Cardiac: No Chest Pain, No Edema, No Syncope Abdominal/Gastrointestinal: No Abdominal Pain, No Nausea, No Vomiting, No Diarrhea Genitourinary Symptoms: No Dysuria Musculoskeletal: No Back Pain, No Neck Pain Skin: No Rash Neurological: No Dizziness, No Focal Weakness, No Sensory Changes Psychological: No Symptoms Endocrine: No Symptoms Hematologic/Lymphatic: No Symptoms Immunological/Allergic: No Symptoms Medications & Allergies Home Medications: Home Medication List Albuterol 2.5 mg/3 ml Neb [Proventil 2.5 mg/3 ml Neb] 2.5 mg IH QID 08/06/20 [History Confirmed 10/24/21] Amlodipine Besylate [Norvasc] 2.5 mg PO DAILY 08/06/20 [History Confirmed 10/24/21] Aspirin EC 81 mg [Ecotrin 81 mg] 81 mg PO DAILY 08/06/20 [History Confirmed 10/24/21] Carvedilol [Coreg] 25 mg PO BID 08/06/20 [History Confirmed 10/24/21] Clopidogrel Bisulfate 75 mg [PLAVIX 75 MG Tablet] 75 mg PO DAILY 08/06/20 [History Confirmed 10/24/21] Famotidine 20 mg [Pepcid 20 MG] 20 mg PO BID 08/06/20 [History Confirmed 10/24/21] Furosemide [Lasix] 20 mg PO DAILY 08/06/20 [History Confirmed 10/24/21] Losartan Potassium [Cozaar] 25 mg PO BID 08/06/20 [History Confirmed 10/24/21] Potassium Chloride [Klor-Con] 20 meq PO DAILY 08/06/20 [History Confirmed 10/24/21] Rosuvastatin Calcium [Crestor] 20 mg PO HS 08/06/20 [History Confirmed 10/24/21] Multivitamin [Multiple Vitamins] 1 each PO DAILY 05/23/21 [History Confirmed 10/24/21] Alendronate Sodium 70 mg [Fosamax 70 MG] 70 mg PO WEEKLY 10/16/21 [History Confirmed 10/24/21] Thai/D3/Mag11/Zinc/Collar Setter/Chuy/Bor [Caltrate 600+D Plus Tablet] 1 tablet PO BID 10/16/21 [History Confirmed 10/24/21] Non-Formulary Drug [Non-Formulary Bulk Item] 1 inh IH BID 10/16/21 [History Confirmed 10/24/21] Oseltamivir 75 mg [Tamiflu 75MG Capsule] 75 mg PO BID 3 Days #6 cap 10/20/21 [Rx Confirmed 10/24/21] Albuterol/Ipratropium 3ml Neb* [DUONEB 0.5-3 MG/3 ml Neb] 3 ml IH QID #120 each 10/21/21 [Rx Confirmed 10/24/21] Levofloxacin [Levofloxacin 500 MG Tablet] 500 mg PO DAILY #3 tablet [Rx Confirmed 10/24/21] Methylprednisolone Packet [Medrol Dosepack] 4 mg PO UD #1 packet 10/21/21 [Rx Confirmed 10/24/21] Allergies/Adverse Reactions: Allergies Allergy/AdvReac Type Severity Reaction Status Date / Time iodine Allergy Severe Hives Verified 10/24/21 11:11 - Past Medical History Past Medical History: Yes Neurological History: No Pertinent History ENT History: Cataracts Cardiac History: Coronary Artery Disease, High Cholesterol, Hypertension Respiratory History: COPD, Emphysema, Pneumonia Endocrine Medical History: No Pertinent History Musculoskelatal History: Arthritis, Osteoarthritis GI Medical History: GERD, Polyps History: No Pertinent History Pyscho-Social History: No Pertinent History Reproductive Disorders: No Pertinent History - Female History Are you now?: No - Past Surgical History Past Surgical History: Yes Neuro Surgical History: No Pertinent History Cardiac History: CABG Respiratory Surgery: No Pertinent History GI Surgical History: Appendectomy, Cholecystectomy Genitourinary Surgical Hx: No Pertinent History Musculskeletal Surgical Hx: Orthopedic Surgery Female Surgical History: Hysterectomy, Tubal Ligation Other Surgical History: 2 screws in lower back,carpal tunnel release to right wrist - Social History Smoking Status: Former smoker Exposure to second hand smoke: No Alcohol: None Drug Use: none - Physical Exam Vital Signs: Vital Signs - 24 hr Temp Pulse Resp BP Pulse Ox 10/24/21 18:23 98.5 F 68 23 124/77 96 10/24/21 17:43 98.5 F 68 23 124/77 96 10/24/21 16:00 73 18 131/74 99 10/24/21 15:57 92 L 10/24/21 15:00 20 92 L 10/24/21 14:00 71 18 147/108 92 L 10/24/21 13:44 71 18 155/72 93 L 10/24/21 13:12 72 22 99 10/24/21 12:53 70 20 99 10/24/21 10:58 98.2 F 82 14 123/74 99 General Appearance: no apparent distress, alert Neurologic Exam: alert, oriented x 3, cooperative, normal mood/affect, nml cerebellar function, nml station & gait, sensation nml, No motor deficits Eye Exam: PERRL/EOMI, eyes nml inspection Ears, Nose, Throat Exam: normal ENT inspection, TMs normal, pharynx normal, moist mucous membranes Neck Exam: normal inspection, non-tender, supple, full range of motion Respiratory Exam: diminished breath sounds, crackles/rales, rhonchi, wheezing, No respiratory distress Cardiovascular Exam: regular rate/rhythm, normal heart sounds, normal peripheral pulses Gastrointestinal/Abdomen Exam: soft, normal bowel sounds, No tenderness, No mass Back Exam: normal inspection, normal range of motion, No CVA tenderness, No vertebral tenderness Extremity Exam: normal inspection, normal range of motion, pelvis stable Skin Exam: normal color, warm, dry, No rash Lymphatic Exam: No adenopathy Results - Labs Lab/Micro Results: Lab Results-Last 24 Hours 10/24/21 10/24/21 10/24/21 Range/Units 12:00 12:00 12:00 WBC 15.5 H (4.0-10.5) K/mm3 RBC 4.49 (4.1-5.4) M/mm3 Hgb 14.6 (12.0-16.0) gm/dl Hct 44.3 (35-47) % MCV 98.7 (78-100) fl MCH 32.5 H (26-32) pg MCHC 33.0 (32-36) g/dl RDW 12.7 (11.5-14.0) % Plt Count 212 (150-450) K/mm3 MPV 9.6 (7.5-11.0) fl Segmented Neutrophils 77 H (36.0-66.0) % Lymphocytes (Manual) 12 L (24-44) % Monocytes (Manual) 9 (0.0-12.0) % Metamyelocytes 2 % Platelet Estimate NORMAL (NORMAL) RBC Morphology NORMAL Sodium 131 L (137-145) mmol/L Potassium 4.1 (3.5-5.1) mmol/L Chloride 96 L (98-107) mmol/L Carbon Dioxide 24 (22-30) mmol/L Anion Gap 15.8 H (5-15) MEQ/L BUN 21 H (7-17) mg/dL Creatinine 0.92 (0.52-1.04) mg/dL Estimated GFR > 60.0 ML/MIN Glucose 86 (74-106) mg/dL Lactic Acid (0.4-2.0) Calcium 9.2 (8.4-10.2) mg/dL Magnesium 2.4 H (1.6-2.3) mg/dL Total Bilirubin 1.00 (0.2-1.3) mg/dL AST 30 (14-36) U/L ALT 23 (0-35) U/L Alkaline Phosphatase 81 (38-126) U/L Troponin I < 0.012 (0.000-0.034) ng/mL NT-Pro-B Natriuret Pep 882 (0-1800) pg/mL Serum Total Protein 7.1 (6.3-8.2) g/dL Albumin 4.3 (3.5-5.0) g/dL Urine Color (YELLOW) Urine Appearance (CLEAR) Urine pH (5-6) Ur Specific [place] (1.005-1.025) Urine Protein (Negative) Urine Ketones (NEGATIVE) Urine Blood (0-5) Estuardo/ul Urine Nitrite (NEGATIVE) Urine Bilirubin (NEGATIVE) Urine Urobilinogen (0-1) mg/dL Ur Leukocyte Esterase (NEGATIVE) Urine WBC (Auto) (0-5) /HPF Urine RBC (Auto) (0-2) /HPF U Epithel Cells (Auto) (FEW) /HPF Urine Bacteria (Auto) (NEGATIVE) /HPF Urine Culture Reflexed (NO) Urine Glucose (NEGATIVE) mg/dL Influenza Type A Ag (NEGATIVE) Influenza Type B Ag (NEGATIVE) RSV (PCR) (Negative) SARS-CoV-2 (PCR) (NEGATIVE) 10/24/21 10/24/21 10/24/21 Range/Units 12:15 16:02 16:11 WBC (4.0-10.5) K/mm3 RBC (4.1-5.4) M/mm3 Hgb (12.0-16.0) gm/dl Hct (35-47) % MCV (78-100) fl MCH (26-32) pg MCHC (32-36) g/dl RDW (11.5-14.0) % Plt Count (150-450) K/mm3 MPV (7.5-11.0) fl Segmented Neutrophils (36.0-66.0) % Lymphocytes (Manual) (24-44) % Monocytes (Manual) (0.0-12.0) % Metamyelocytes % Platelet Estimate (NORMAL) RBC Morphology Sodium (137-145) mmol/L Potassium (3.5-5.1) mmol/L Chloride (98-107) mmol/L Carbon Dioxide (22-30) mmol/L Anion Gap (5-15) MEQ/L BUN (7-17) mg/dL Creatinine (0.52-1.04) mg/dL Estimated GFR ML/MIN Glucose (74-106) mg/dL Lactic Acid 2.0 (0.4-2.0) Calcium (8.4-10.2) mg/dL Magnesium (1.6-2.3) mg/dL Total Bilirubin (0.2-1.3) mg/dL AST (14-36) U/L ALT (0-35) U/L Alkaline Phosphatase (38-126) U/L Troponin I < 0.012 (0.000-0.034) ng/mL NT-Pro-B Natriuret Pep (0-1800) pg/mL Serum Total Protein (6.3-8.2) g/dL Albumin (3.5-5.0) g/dL Urine Color (YELLOW) Urine Appearance (CLEAR) Urine pH (5-6) Ur Specific [place] (1.005-1.025) Urine Protein (Negative) Urine Ketones (NEGATIVE) Urine Blood (0-5) Estuardo/ul Urine Nitrite (NEGATIVE) Urine Bilirubin (NEGATIVE) Urine Urobilinogen (0-1) mg/dL Ur Leukocyte Esterase (NEGATIVE) Urine WBC (Auto) (0-5) /HPF Urine RBC (Auto) (0-2) /HPF U Epithel Cells (Auto) (FEW) /HPF Urine Bacteria (Auto) (NEGATIVE) /HPF Urine Culture Reflexed (NO) Urine Glucose (NEGATIVE) mg/dL Influenza Type A Ag POSITIVE (NEGATIVE) Influenza Type B Ag NEGATIVE (NEGATIVE) RSV (PCR) NEGATIVE (Negative) SARS-CoV-2 (PCR) NEGATIVE (NEGATIVE) 10/24/21 10/24/21 Range/Units 16:16 18:22 WBC (4.0-10.5) K/mm3 RBC (4.1-5.4) M/mm3 Hgb (12.0-16.0) gm/dl Hct (35-47) % MCV (78-100) fl MCH (26-32) pg MCHC (32-36) g/dl RDW (11.5-14.0) % Plt Count (150-450) K/mm3 MPV (7.5-11.0) fl Segmented Neutrophils (36.0-66.0) % Lymphocytes (Manual) (24-44) % Monocytes (Manual) (0.0-12.0) % Metamyelocytes % Platelet Estimate (NORMAL) RBC Morphology Sodium (137-145) mmol/L Potassium (3.5-5.1) mmol/L Chloride (98-107) mmol/L Carbon Dioxide (22-30) mmol/L Anion Gap (5-15) MEQ/L BUN (7-17) mg/dL Creatinine (0.52-1.04) mg/dL Estimated GFR ML/MIN Glucose (74-106) mg/dL Lactic Acid (0.4-2.0) Calcium (8.4-10.2) mg/dL Magnesium (1.6-2.3) mg/dL Total Bilirubin (0.2-1.3) mg/dL AST (14-36) U/L ALT (0-35) U/L Alkaline Phosphatase (38-126) U/L Troponin I < 0.012 (0.000-0.034) ng/mL NT-Pro-B Natriuret Pep (0-1800) pg/mL Serum Total Protein (6.3-8.2) g/dL Albumin (3.5-5.0) g/dL Urine Color YELLOW (YELLOW) Urine Appearance CLEAR (CLEAR) Urine pH 8.0 (5-6) Ur Specific [place] 1.009 (1.005-1.025) Urine Protein NEGATIVE (Negative) Urine Ketones SMALL (NEGATIVE) Urine Blood NEGATIVE (0-5) Estuardo/ul Urine Nitrite NEGATIVE (NEGATIVE) Urine Bilirubin NEGATIVE (NEGATIVE) Urine Urobilinogen NEGATIVE (0-1) mg/dL Ur Leukocyte Esterase NEGATIVE (NEGATIVE) Urine WBC (Auto) NONE (0-5) /HPF Urine RBC (Auto) 0-2 (0-2) /HPF U Epithel Cells (Auto) NONE (FEW) /HPF Urine Bacteria (Auto) NONE (NEGATIVE) /HPF Urine Culture Reflexed YES (NO) Urine Glucose NEGATIVE (NEGATIVE) mg/dL Influenza Type A Ag (NEGATIVE) Influenza Type B Ag (NEGATIVE) RSV (PCR) (Negative) SARS-CoV-2 (PCR) (NEGATIVE) - Radiology Impressions Radiology Exams & Impressions: Radiology Procedures Category Date Time Status CHEST 1 VIEW (PORTABLE) Stat Exams 10/24/21 11:43 Completed - Other Procedures and Tests Respiratory Therapy 10/24/21 13:11 Respiratory Therapy Assessment DAILY 10/24/21 17:44 Oxygen Nasal Cannula 2 lpm Assessment/Plan (1) Influenzal pneumonia Current Visit: Yes Status: Acute Assessment & Plan: Chief Complaint Diagnosis Pneumonia Allergies Allergy/AdvReac Type Severity Reaction Status Date / Time iodine Allergy Severe Hives Verified 10/24/21 11:11 Vital Signs (Last 24 hours) Temp Pulse Resp BP Pulse Ox 10/24/21 18:23 98.5 F 68 23 124/77 96 10/24/21 17:43 98.5 F 68 23 124/77 96 01/03/22 16:00 73 18 131/74 99 10/24/21 15:57 92 L 10/24/21 15:00 20 92 L 10/24/21 14:00 71 18 147/108 92 L 10/24/21 13:44 71 18 155/72 93 L 10/24/21 13:12 72 22 99 10/24/21 12:53 70 20 99 10/24/21 10:58 98.2 F 82 14 123/74 99 Current Medications Generic Name Dose Route Start Last Admin Trade Name Fre[place] PRN Reason Stop Dose Admin Acetaminophen 650 mg 10/24/21 17:44 Acetaminophen 325 Mg Tablet PO 11/23/21 17:43 Q4H PRN PRN PAIN AND/OR FEVER Albuterol/Ipratropium 3 ml 10/24/21 19:00 Ipratropium/Albuterol Sulfate 3 Ml Ampul.[facility] 11/23/21 18:59 Q6HRT MICKY Methylprednisolone Sodium 0 mg 10/24/21 19:00 Succinate 40 mg/ Sterile Water IV 11/23/21 18:59 1 ml Q8H MICKY Sodium Chloride 1,000 mls @ 100 mls/hr 10/24/21 16:00 10/24/21 18:02 Sodium Chloride 0.9% 1000 Ml IV 11/23/21 15:59 100 mls/hr .Q10H MICKY Administration Levofloxacin/Dextrose 500 mg in 100 mls @ 100 mls/hr 10/25/21 10:00 Levofloxacin 500mg/100ml D5w IV 11/24/21 09:59 Q24H10 MICKY Pantoprazole Sodium 40 mg 10/25/21 10:00 Pantoprazole 40 Mg Vial IV 11/24/21 09:59 Q24H10 MICKY Polyethylene Glycol 17 gm 10/24/21 18:51 Polyethylene Glycol 3350 17 Gm Packet PO 11/24/21 09:59 DAILY PRN CONSTIPATION Discontinued Medications Generic Name Dose Route Start Last Admin Trade Name Freq PRN Reason Stop Dose Admin Albuterol/Ipratropium 3 ml 10/24/21 11:42 10/24/21 12:20 Ipratropium/Albuterol Sulfate 3 Ml Ampul.[facility] 10/24/21 11:43 3 ml STAT ONE Administration Albuterol/Ipratropium Confirm 10/24/21 12:07 Ipratropium/Albuterol Sulfate 3 Ml Ampul.Neb Administered 10/24/21 12:08 Dose 3 ml IH .STK-MED ONE Dexamethasone Sodium Phosphate 6 mg 10/24/21 14:01 10/24/21 16:26 Dexamethasone Sod Phosphate 10 Mg/Ml IV 10/24/21 14:02 6 mg STAT ONE Administration Dexamethasone Sodium Phosphate Confirm 10/24/21 16:15 Dexamethasone Sod Phosphate 10 Mg/Ml Administered 10/24/21 16:16 Dose 10 mg .ROUTE .STK-MED ONE Levofloxacin/Dextrose 500 mg in 100 mls @ 100 mls/hr 10/24/21 14:01 10/24/21 16:25 Levofloxacin 500mg/100ml D5w IV 10/24/21 15:00 100 mls/hr STAT STA 100 mls/hr Administration Levofloxacin/Dextrose Confirm 10/24/21 16:16 Levofloxacin 500mg/100ml D5w Administered 10/24/21 16:17 Dose 500 mg in 100 mls @ ud IV .STK-MED ONE Lidocaine HCl Confirm 10/24/21 15:10 Lidocaine Hcl 1% 20 Ml Mdv 20 Ml Ml Administered 10/24/21 15:11 Dose 5 ml .ROUTE .STK-MED ONE Intake & Output (Last 24 hours) 10/22/21 10/23/21 10/24/21 10/25/21 11:59 11:59 11:59 11:59 Weight 64.6 kg 62.9 kg Microbiology Results (Last 24 hours) 10/24/21 16:16 Catherized Urine Culture - Pending 10/24/21 12:26 Blood Blood Culture Gram Stain - Pending 10/24/21 12:26 Blood Blood Culture - Pending 10/24/21 12:10 Blood Blood Culture Gram Stain - Pending 10/24/21 12:10 Blood Blood Culture - Pending Laboratory Results (Last 24 hours) 10/24/21 10/24/21 10/24/21 18:22 16:16 16:11 WBC RBC Hgb Hct MCV MCH MCHC RDW Plt Count MPV Segmented Neutrophils Lymphocytes (Manual) Monocytes (Manual) Metamyelocytes Platelet Estimate RBC Morphology Sodium Potassium Chloride Carbon Dioxide Anion Gap BUN Creatinine Estimated GFR Glucose Lactic Acid Calcium Magnesium Total Bilirubin AST ALT Alkaline Phosphatase Troponin I < 0.012 < 0.012 NT-Pro-B Natriuret Pep Serum Total Protein Albumin Urine Color YELLOW Urine Appearance CLEAR Urine pH 8.0 Ur Specific [place] 1.009 Urine Protein NEGATIVE Urine Ketones SMALL Urine Blood NEGATIVE Urine Nitrite NEGATIVE Urine Bilirubin NEGATIVE Urine Urobilinogen NEGATIVE Ur Leukocyte Esterase NEGATIVE Urine WBC (Auto) NONE Urine RBC (Auto) 0-2 U Epithel Cells (Auto) NONE Urine Bacteria (Auto) NONE Urine Culture Reflexed YES Urine Glucose NEGATIVE Influenza Type A Ag Influenza Type B Ag RSV (PCR) SARS-CoV-2 (PCR) 10/24/21 10/24/21 10/24/21 16:02 12:15 12:00 WBC RBC Hgb Hct MCV MCH MCHC RDW Plt Count MPV Segmented Neutrophils Lymphocytes (Manual) Monocytes (Manual) Metamyelocytes Platelet Estimate RBC Morphology Sodium Potassium Chloride Carbon Dioxide Anion Gap BUN Creatinine Estimated GFR Glucose Lactic Acid 2.0 Calcium Magnesium Total Bilirubin AST ALT Alkaline Phosphatase Troponin I < 0.012 NT-Pro-B Natriuret Pep Serum Total Protein Albumin Urine Color Urine Appearance Urine pH Ur Specific [place] Urine Protein Urine Ketones Urine Blood Urine Nitrite Urine Bilirubin Urine Urobilinogen Ur Leukocyte Esterase Urine WBC (Auto) Urine RBC (Auto) U Epithel Cells (Auto) Urine Bacteria (Auto) Urine Culture Reflexed Urine Glucose Influenza Type A Ag POSITIVE Influenza Type B Ag NEGATIVE RSV (PCR) NEGATIVE SARS-CoV-2 (PCR) NEGATIVE 10/24/21 10/24/21 12:00 12:00 WBC 15.5 H RBC 4.49 Hgb 14.6 Hct 44.3 MCV 98.7 MCH 32.5 H MCHC 33.0 RDW 12.7 Plt Count 212 MPV 9.6 Segmented Neutrophils 77 H Lymphocytes (Manual) 12 L Monocytes (Manual) 9 Metamyelocytes 2 Platelet Estimate NORMAL RBC Morphology NORMAL Sodium 131 L Potassium 4.1 Chloride 96 L Carbon Dioxide 24 Anion Gap 15.8 H BUN 21 H Creatinine 0.92 Estimated GFR > 60.0 Glucose 86 Lactic Acid Calcium 9.2 Magnesium 2.4 H Total Bilirubin 1.00 AST 30 ALT 23 Alkaline Phosphatase 81 Troponin I NT-Pro-B Natriuret Pep 882 Serum Total Protein 7.1 Albumin 4.3 Urine Color Urine Appearance Urine pH Ur Specific [place] Urine Protein Urine Ketones Urine Blood Urine Nitrite Urine Bilirubin Urine Urobilinogen Ur Leukocyte Esterase Urine WBC (Auto) Urine RBC (Auto) U Epithel Cells (Auto) Urine Bacteria (Auto) Urine Culture Reflexed Urine Glucose Influenza Type A Ag Influenza Type B Ag RSV (PCR) SARS-CoV-2 (PCR) Orders (Last 24 hours) Category Date Time Status Bedrest ROUTINE Activity 10/24/21 17:44 Active Up With Assistance ROUTINE Activity 10/24/21 17:44 Active Drawing Checker STAT Care 10/24/21 11:43 Completed Code Status Order ROUTINE Care 10/24/21 17:44 Active Fall Protocol ROUTINE Care 10/24/21 17:44 Active IV Care Q6H Care 10/24/21 17:44 Active IV Insertion STAT Care 10/24/21 11:42 Completed Oxygen-ED Only Nasal Cannula 2 lpm Care 10/24/21 11:42 Completed POCT Glucose Check ACHS Care 10/24/21 17:[address] in Observation ROUTINE Care 10/24/21 17:44 Active Tim Hose, Apply ROUTINE Care 10/24/21 17:44 Active Weight,Daily 0600 Care 10/24/21 17:44 Active Infection Control Consult ROUTINE Cons 10/24/21 18:47 Active Assistant Teacher Primary/Discharge Plan ROUTINE Cons 10/24/21 18:47 Active CHEST 1 VIEW (PORTABLE) Stat Exams 10/24/21 11:43 Completed BLOOD CULTURE Stat Lab 10/24/21 12:26 Received CBC W DIFF AM.LAB Lab 10/25/21 04:00 Ordered CBC W DIFF Stat Lab 10/24/21 12:00 Completed CMP AM.LAB Lab 10/25/21 04:00 Ordered CMP Stat Lab 10/24/21 12:00 Completed CULTURE,URINE Stat Lab 10/24/21 16:16 Received Lactic Acid Stat Lab 10/24/21 12:15 Completed MAGNESIUM Stat Lab 10/24/21 12:00 Completed Manual Differential NC Stat Lab 10/24/21 12:00 Completed NT PRO BNP Stat Lab 10/24/21 12:00 Completed TROPONIN Q3H Lab 10/24/21 12:00 Completed TROPONIN Q3H Lab 10/24/21 16:11 Completed TROPONIN Q3H Lab 10/24/21 18:22 Completed TROPONIN Q3H Lab 10/24/21 20:45 Ordered TROPONIN Q3H Lab 10/24/21 23:45 Ordered UA W/RFX UR CULTURE Stat Lab 10/24/21 16:16 Completed Acetaminophen 325 mg [Tylenol 325 mg] Med 10/24/21 17:44 Active 650 mg PO Q4H PRN PRN Albuterol/Ipratropium 3ml Neb* [DUONEB 0.5-3 MG/3 ml Med 10/24/21 12:07 Discontinued Neb] 3 ml IH .STK-MED ONE Albuterol/Ipratropium 3ml Neb* [DUONEB 0.5-3 MG/3 ml Med 10/24/21 19:00 Active Neb] 3 ml IH Q6HRT Albuterol/Ipratropium 3ml Neb* [DUONEB 0.5-3 MG/3 ml Med 10/24/21 11:42 Discontinued Neb] 3 ml IH STAT ONE Dexamethasone Sod Phosphate [Decadron 10Mg Inj.] Med 10/24/21 16:15 Discontinued 10 mg .ROUTE .STK-MED ONE Dexamethasone Sod Phosphate [Decadron 10Mg Inj.] Med 10/24/21 14:01 Discontinued 6 mg IV STAT ONE Levofloxacin [Levofloxacin 500MG/100ML D5W] Med 10/25/21 10:00 Active 500 mg in 100 ml IV Q24H10 Levofloxacin [Levofloxacin 500MG/100ML D5W] Med 10/24/21 14:01 Discontinued 500 mg in 100 ml IV STAT Levofloxacin [Levofloxacin 500MG/100ML D5W] Med 10/24/21 16:16 Discontinued 500 mg in 100 ml IV UD Lidocaine HCl 1% 20 ml Mdv [Xylocaine 1% HCl 20 ml Med 10/24/21 15:10 Discontinued Mdv] 5 ml .ROUTE .STK-MED ONE Methylprednisolone Sod Suc 40M [solu-MEDROL] 40 mg Med 10/24/21 19:00 Ordered Water For Injection,Sterile [Sterile H2O 10 ml] 1 ml IV Q8H NaCl 0.9% 1000 ml [Sodium Chloride 0.9% 1000 ML] 1,000 Med 10/24/21 16:00 Active ml IV 100 mls/hr Pantoprazole 40 mg [Protonix 40 mg IV] Med 10/25/21 10:00 Active 40 mg IV Q24H10 Polyethylene Glycol 3350 17 gm [Miralax Powder 17GM Med 10/24/21 18:51 Ordered PACKET] 17 gm PO DAILY PRN OT Screen per Nursing Assess ONCE OT 10/24/21 18:47 Active PT Screen per Nursing Assess ONCE PT 10/24/21 18:47 Active Oxygen Nasal Cannula 2 lpm RT 10/24/21 17:44 Active Respiratory Therapy Assessment DAILY RT 10/24/21 13:11 Active Transfer Order Routine Transfer 10/24/21 Completed Code(s): J11.00 - FLU DUE TO UNIDENTIFIED FLU VIRUS W UNSP TYPE OF PNEUMONIA
[2021-10-24] MEDS ORDERED: Advair Hfa 115/21 Mcg Inhaler IH ONE (19:04)
[2021-10-24] MEDS: Advair Hfa 115/21 Common canister IH SCH (19:14)
[2021-10-24] MEDS ORDERED: solu-MEDROL ONE (21:51)
[2021-10-25] MEDS: DUONEB 0.5-3 MG/3 ml Neb IH SCH ×5 (00:39→19:07)
[2021-10-25] MEDS: Sodium Chloride 0.9% 1000 ML 1,000 ML IV SCH (04:06)
[2021-10-25 04:45] LABS: Hematocrit 31.2 % (35-47); Hemoglobin 10.5 gm/dl (12.0-16.0); Mean Cell Volume 97.8 fl (78-100); Mean Corpuscular Hemoglobin 32.9 pg (26-32); Mean Corpuscular Hgb Concent. 33.7 g/dl (32-36); Mean Platelet Volume 8.6 fl (7.5-11.0); Platelet Count 258 K/mm3 (150-450); Red Blood Count 3.19 M/mm3 (4.1-5.4); Red Cell Distribution Width 12.8 % (11.5-14.0)
[2021-10-25 05:01] LABS: ALKALINE PHOSPHATASE 49 U/L (38-126); ANION GAP 9.2 MEQ/L (5-15); BLOOD UREA NITROGEN 26 mg/dL (7-17); CHLORIDE 99 mmol/L (98-107); Calcium 7.1 mg/dL (8.4-10.2); Carbon Dioxide 23 mmol/L (22-30); Creatinine 1 0.86 mg/dL (0.52-1.04); EST GLOMERULAR FILTRATION RATE > 60.0 ML/MIN; Glucose 147 mg/dL (74-106); Potassium 3.7 mmol/L (3.5-5.1); SGOT/AST 23 U/L (14-36); SGPT/ALT 21 U/L (0-35); SODIUM 127 mmol/L (137-145); Total Protein 5.4 g/dL (6.3-8.2)
[2021-10-25 05:19] LABS: Lymphocytes 3 % (24-44); Neutrophils 97 % (36.0-66.0); Total Cells Counted 100
[2021-10-25 05:20] LABS: ANISOCYTOSIS 1+; Platelet Estimate NORMAL (NORMAL); Poikilocytosis 1+
[2021-10-25] MEDS ORDERED: solu-MEDROL IV SCH (06:00)
[2021-10-25] MEDS: Advair Hfa 115/21 Common canister IH SCH ×2 (07:01→19:07)
[2021-10-25] MEDS: Lactated Ringers 1,000 ML IV SCH ×2 (08:13→18:29)
[2021-10-25] MEDS: COREG 12.5 MG PO SCH ×2 (08:14→17:44)
[2021-10-25] MEDS ORDERED: CAL PO SCH (10:00)
[2021-10-25] MEDS ORDERED: NON-FORMULARY ITEM (Multivitamin [Multiple Vitamins] 1 EACH Tablet) PO SCH (10:00)
[2021-10-25] MEDS ORDERED: MAG11 PO SCH (10:00)
[2021-10-25] MEDS ORDERED: [UNRECOGNIZED DRUG - OTHER] PO SCH (10:00)
[2021-10-25] MEDS ORDERED: LASIX 20 MG PO PRN (10:00)
[2021-10-25] MEDS ORDERED: ZINC PO SCH (10:00)
[2021-10-25] MEDS ORDERED: D3 PO SCH (10:00)
[2021-10-25] MEDS ORDERED: NON-FORMULARY ITEM (Amlodipine Besylate [Norvasc] 2.5 MG Tablet) PO SCH (10:00)
[2021-10-25] MEDS ORDERED: NON-FORMULARY ITEM (Potassium Chloride [Klor-Con] 20 MEQ Packet) PO SCH (10:00)
[2021-10-25] MEDS ORDERED: MANG PO SCH (10:00)
[2021-10-25] MEDS ORDERED: BOR PO SCH (10:00)
[2021-10-25] MEDS ORDERED: Levofloxacin 500 MG Tablet PO SCH (10:00)
[2021-10-25] MEDS ORDERED: NON-FORMULARY ITEM (Carvedilol [Coreg] 25 MG Tablet) PO SCH (10:00)
[2021-10-25] MEDS ORDERED: COP PO SCH (10:00)
[2021-10-25] MEDS ORDERED: NON-FORMULARY ITEM (Losartan Potassium [Cozaar] 25 MG Tablet) PO SCH (10:00)
[2021-10-25] MEDS: ECOTRIN 81 MG PO SCH (10:03)
[2021-10-25] MEDS: PLAVIX 75 MG Tablet PO SCH (10:03)
[2021-10-25] MEDS: THERAGRAN MULTIVITAMIN PO SCH (10:03)
[2021-10-25] MEDS: Klor Con 10 MEQ PO SCH (10:03)
[2021-10-25] MEDS: PROTONIX 40 MG IV IV SCH (10:03)
[2021-10-25] MEDS: Calcium 500MG W/Vit D Tablet PO SCH ×2 (10:03→21:20)
[2021-10-25] MEDS: Cozaar 50 MG PO SCH ×2 (10:03→21:20)
[2021-10-25] MEDS: NORVASC 5 MG PO SCH (10:03)
[2021-10-25] MEDS: Pepcid 20 MG PO SCH ×2 (10:04→21:20)
[2021-10-25] MEDS: Levofloxacin 500MG/100ML D5W 500 MG/100 ML BAG IV SCH (10:04)
[2021-10-25] MEDS: Tamiflu 75MG Capsule PO SCH ×2 (10:04→21:20)
[2021-10-25] MEDS: solu-MEDROL IV SCH ×3 (11:57→23:28)
[2021-10-25] MEDS ORDERED: HUMALOG SQ PRN (13:49)
--- NOTE | 2021-10-25 15:32 | PCM.NOTE ---
Date and Time: 10/25/21 1527 Subjective Assessment: Pt still very SOB. Not tolerating solids. - Review of Systems Respiratory: Short Of Breath Abdominal/Gastrointestinal: Appetite Changes Objective Exam General Appearance: mild distress (dyspneic at rest), alert Neurologic Exam: oriented x 3, cooperative Skin Exam: normal color, warm, dry, No rash Eye Exam: eyes nml inspection Ears, Nose, Throat Exam: moist mucous membranes Neck Exam: normal inspection Respiratory Exam: diminished breath sounds (poor air exchange), prolonged expirations, wheezing (faint), No crackles/rales, No rhonchi Cardiovascular Exam: regular rate/rhythm, normal heart sounds, No murmur Extremity Exam: normal inspection, No pedal edema, No swelling Back Exam: normal inspection, No rash OBJECTIVE DATA Vital Signs: Vital Signs - 24 hr Temp Pulse Resp BP Pulse Ox 10/25/21 13:21 70 18 98 10/25/21 12:00 97.7 F 69 21 117/58 99 10/25/21 08:00 98.3 F 63 21 163/72 98 10/25/21 07:02 69 18 98 10/25/21 04:04 98.2 F 66 18 107/62 94 L 10/25/21 00:44 68 20 94 L 10/25/21 00:00 96.3 F 67 20 115/61 97 10/24/21 20:00 98.3 F 70 20 100/63 97 10/24/21 18:50 69 18 95 10/24/21 18:23 98.5 F 68 23 124/77 96 10/24/21 17:43 98.5 F 68 23 124/77 96 10/24/21 16:00 73 18 131/74 99 10/24/21 15:57 92 L Pain Assessment - Last Documented Pain Intensity 0 Pain Scale Used FLACC Intake and Output: Intake & Output 10/23/21 10/24/21 10/25/21 10/26/21 11:59 11:59 11:59 11:59 Intake Total 340 Output Total 450 Balance -110 Weight 64.6 kg 63.4 kg Lab Results: Lab Results-Last 24 Hours 10/24/21 10/24/21 10/24/21 Range/Units 12:00 16:02 16:11 WBC (4.0-10.5) K/mm3 RBC (4.1-5.4) M/mm3 Hgb (12.0-16.0) gm/dl Hct (35-47) % MCV (78-100) fl MCH (26-32) pg MCHC (32-36) g/dl RDW (11.5-14.0) % Plt Count (150-450) K/mm3 MPV (7.5-11.0) fl Segmented Neutrophils 77 H (36.0-66.0) % Lymphocytes (Manual) 12 L (24-44) % Monocytes (Manual) 9 (0.0-12.0) % Metamyelocytes 2 % Platelet Estimate NORMAL (NORMAL) RBC Morphology NORMAL Poikilocytosis Anisocytosis Sodium (137-145) mmol/L Potassium (3.5-5.1) mmol/L Chloride (98-107) mmol/L Carbon Dioxide (22-30) mmol/L Anion Gap (5-15) MEQ/L BUN (7-17) mg/dL Creatinine (0.52-1.04) mg/dL Estimated GFR ML/MIN Glucose (74-106) mg/dL POC Glucometer (74 to 106) mg/dL Hemoglobin A1c (4.5-6.0) % Calcium (8.4-10.2) mg/dL Total Bilirubin (0.2-1.3) mg/dL AST (14-36) U/L ALT (0-35) U/L Alkaline Phosphatase (38-126) U/L Troponin I < 0.012 (0.000-0.034) ng/mL Serum Total Protein (6.3-8.2) g/dL Albumin (3.5-5.0) g/dL Urine Color (YELLOW) Urine Appearance (CLEAR) Urine pH (5-6) Ur Specific [place] (1.005-1.025) Urine Protein (Negative) Urine Ketones (NEGATIVE) Urine Blood (0-5) Estuardo/ul Urine Nitrite (NEGATIVE) Urine Bilirubin (NEGATIVE) Urine Urobilinogen (0-1) mg/dL Ur Leukocyte Esterase (NEGATIVE) Urine WBC (Auto) (0-5) /HPF Urine RBC (Auto) (0-2) /HPF U Epithel Cells (Auto) (FEW) /HPF Urine Bacteria (Auto) (NEGATIVE) /HPF Urine Culture Reflexed (NO) Urine Glucose (NEGATIVE) mg/dL Influenza Type A Ag POSITIVE (NEGATIVE) Influenza Type B Ag NEGATIVE (NEGATIVE) RSV (PCR) NEGATIVE (Negative) SARS-CoV-2 (PCR) NEGATIVE (NEGATIVE) 10/24/21 10/24/21 10/24/21 Range/Units 16:16 18:22 20:52 WBC (4.0-10.5) K/mm3 RBC (4.1-5.4) M/mm3 Hgb (12.0-16.0) gm/dl Hct (35-47) % MCV (78-100) fl MCH (26-32) pg MCHC (32-36) g/dl RDW (11.5-14.0) % Plt Count (150-450) K/mm3 MPV (7.5-11.0) fl Segmented Neutrophils (36.0-66.0) % Lymphocytes (Manual) (24-44) % Monocytes (Manual) (0.0-12.0) % Metamyelocytes % Platelet Estimate (NORMAL) RBC Morphology Poikilocytosis Anisocytosis Sodium (137-145) mmol/L Potassium (3.5-5.1) mmol/L Chloride (98-107) mmol/L Carbon Dioxide (22-30) mmol/L Anion Gap (5-15) MEQ/L BUN (7-17) mg/dL Creatinine (0.52-1.04) mg/dL Estimated GFR ML/MIN Glucose (74-106) mg/dL POC Glucometer (74 to 106) mg/dL Hemoglobin A1c (4.5-6.0) % Calcium (8.4-10.2) mg/dL Total Bilirubin (0.2-1.3) mg/dL AST (14-36) U/L ALT (0-35) U/L Alkaline Phosphatase (38-126) U/L Troponin I < 0.012 < 0.012 (0.000-0.034) ng/mL Serum Total Protein (6.3-8.2) g/dL Albumin (3.5-5.0) g/dL Urine Color YELLOW (YELLOW) Urine Appearance CLEAR (CLEAR) Urine pH 8.0 (5-6) Ur Specific [place] 1.009 (1.005-1.025) Urine Protein NEGATIVE (Negative) Urine Ketones SMALL (NEGATIVE) Urine Blood NEGATIVE (0-5) Estuardo/ul Urine Nitrite NEGATIVE (NEGATIVE) Urine Bilirubin NEGATIVE (NEGATIVE) Urine Urobilinogen NEGATIVE (0-1) mg/dL Ur Leukocyte Esterase NEGATIVE (NEGATIVE) Urine WBC (Auto) NONE (0-5) /HPF Urine RBC (Auto) 0-2 (0-2) /HPF U Epithel Cells (Auto) NONE (FEW) /HPF Urine Bacteria (Auto) NONE (NEGATIVE) /HPF Urine Culture Reflexed YES (NO) Urine Glucose NEGATIVE (NEGATIVE) mg/dL Influenza Type A Ag (NEGATIVE) Influenza Type B Ag (NEGATIVE) RSV (PCR) (Negative) SARS-CoV-2 (PCR) (NEGATIVE) 10/24/21 10/24/21 10/25/21 Range/Units 23:45 23:57 04:30 WBC 9.0 (4.0-10.5) K/mm3 RBC 3.19 L (4.1-5.4) M/mm3 Hgb 10.5 L D (12.0-16.0) gm/dl Hct 31.2 L (35-47) % MCV 97.8 (78-100) fl MCH 32.9 H (26-32) pg MCHC 33.7 (32-36) g/dl RDW 12.8 (11.5-14.0) % Plt Count 258 (150-450) K/mm3 MPV 8.6 (7.5-11.0) fl Segmented Neutrophils 97 H (36.0-66.0) % Lymphocytes (Manual) 3 L (24-44) % Monocytes (Manual) (0.0-12.0) % Metamyelocytes % Platelet Estimate NORMAL (NORMAL) RBC Morphology ABNORMAL Poikilocytosis 1+ Anisocytosis 1+ Sodium (137-145) mmol/L Potassium (3.5-5.1) mmol/L Chloride (98-107) mmol/L Carbon Dioxide (22-30) mmol/L Anion Gap (5-15) MEQ/L BUN (7-17) mg/dL Creatinine (0.52-1.04) mg/dL Estimated GFR ML/MIN Glucose (74-106) mg/dL POC Glucometer 149 H (74 to 106) mg/dL Hemoglobin A1c (4.5-6.0) % Calcium (8.4-10.2) mg/dL Total Bilirubin (0.2-1.3) mg/dL AST (14-36) U/L ALT (0-35) U/L Alkaline Phosphatase (38-126) U/L Troponin I < 0.012 (0.000-0.034) ng/mL Serum Total Protein (6.3-8.2) g/dL Albumin (3.5-5.0) g/dL Urine Color (YELLOW) Urine Appearance (CLEAR) Urine pH (5-6) Ur Specific [place] (1.005-1.025) Urine Protein (Negative) Urine Ketones (NEGATIVE) Urine Blood (0-5) Estuardo/ul Urine Nitrite (NEGATIVE) Urine Bilirubin (NEGATIVE) Urine Urobilinogen (0-1) mg/dL Ur Leukocyte Esterase (NEGATIVE) Urine WBC (Auto) (0-5) /HPF Urine RBC (Auto) (0-2) /HPF U Epithel Cells (Auto) (FEW) /HPF Urine Bacteria (Auto) (NEGATIVE) /HPF Urine Culture Reflexed (NO) Urine Glucose (NEGATIVE) mg/dL Influenza Type A Ag (NEGATIVE) Influenza Type B Ag (NEGATIVE) RSV (PCR) (Negative) SARS-CoV-2 (PCR) (NEGATIVE) 10/25/21 10/25/21 10/25/21 Range/Units 04:30 07:22 12:01 WBC (4.0-10.5) K/mm3 RBC (4.1-5.4) M/mm3 Hgb (12.0-16.0) gm/dl Hct (35-47) % MCV (78-100) fl MCH (26-32) pg MCHC (32-36) g/dl RDW (11.5-14.0) % Plt Count (150-450) K/mm3 MPV (7.5-11.0) fl Segmented Neutrophils (36.0-66.0) % Lymphocytes (Manual) (24-44) % Monocytes (Manual) (0.0-12.0) % Metamyelocytes % Platelet Estimate (NORMAL) RBC Morphology Poikilocytosis Anisocytosis Sodium 127 L (137-145) mmol/L Potassium 3.7 (3.5-5.1) mmol/L Chloride 99 (98-107) mmol/L Carbon Dioxide 23 (22-30) mmol/L Anion Gap 9.2 (5-15) MEQ/L BUN 26 H (7-17) mg/dL Creatinine 0.86 (0.52-1.04) mg/dL Estimated GFR > 60.0 ML/MIN Glucose 147 H (74-106) mg/dL POC Glucometer 136 H 216 H (74 to 106) mg/dL Hemoglobin A1c (4.5-6.0) % Calcium 7.1 L D (8.4-10.2) mg/dL Total Bilirubin 0.60 (0.2-1.3) mg/dL AST 23 (14-36) U/L ALT 21 (0-35) U/L Alkaline Phosphatase 49 (38-126) U/L Troponin I (0.000-0.034) ng/mL Serum Total Protein 5.4 L (6.3-8.2) g/dL Albumin 3.0 L (3.5-5.0) g/dL Urine Color (YELLOW) Urine Appearance (CLEAR) Urine pH (5-6) Ur Specific [place] (1.005-1.025) Urine Protein (Negative) Urine Ketones (NEGATIVE) Urine Blood (0-5) Estuardo/ul Urine Nitrite (NEGATIVE) Urine Bilirubin (NEGATIVE) Urine Urobilinogen (0-1) mg/dL Ur Leukocyte Esterase (NEGATIVE) Urine WBC (Auto) (0-5) /HPF Urine RBC (Auto) (0-2) /HPF U Epithel Cells (Auto) (FEW) /HPF Urine Bacteria (Auto) (NEGATIVE) /HPF Urine Culture Reflexed (NO) Urine Glucose (NEGATIVE) mg/dL Influenza Type A Ag (NEGATIVE) Influenza Type B Ag (NEGATIVE) RSV (PCR) (Negative) SARS-CoV-2 (PCR) (NEGATIVE) 10/25/21 Range/Units 14:15 WBC (4.0-10.5) K/mm3 RBC (4.1-5.4) M/mm3 Hgb (12.0-16.0) gm/dl Hct (35-47) % MCV (78-100) fl MCH (26-32) pg MCHC (32-36) g/dl RDW (11.5-14.0) % Plt Count (150-450) K/mm3 MPV (7.5-11.0) fl Segmented Neutrophils (36.0-66.0) % Lymphocytes (Manual) (24-44) % Monocytes (Manual) (0.0-12.0) % Metamyelocytes % Platelet Estimate (NORMAL) RBC Morphology Poikilocytosis Anisocytosis Sodium (137-145) mmol/L Potassium (3.5-5.1) mmol/L Chloride (98-107) mmol/L Carbon Dioxide (22-30) mmol/L Anion Gap (5-15) MEQ/L BUN (7-17) mg/dL Creatinine (0.52-1.04) mg/dL Estimated GFR ML/MIN Glucose (74-106) mg/dL POC Glucometer (74 to 106) mg/dL Hemoglobin A1c 5.76 (4.5-6.0) % Calcium (8.4-10.2) mg/dL Total Bilirubin (0.2-1.3) mg/dL AST (14-36) U/L ALT (0-35) U/L Alkaline Phosphatase (38-126) U/L Troponin I (0.000-0.034) ng/mL Serum Total Protein (6.3-8.2) g/dL Albumin (3.5-5.0) g/dL Urine Color (YELLOW) Urine Appearance (CLEAR) Urine pH (5-6) Ur Specific [place] (1.005-1.025) Urine Protein (Negative) Urine Ketones (NEGATIVE) Urine Blood (0-5) Estuardo/ul Urine Nitrite (NEGATIVE) Urine Bilirubin (NEGATIVE) Urine Urobilinogen (0-1) mg/dL Ur Leukocyte Esterase (NEGATIVE) Urine WBC (Auto) (0-5) /HPF Urine RBC (Auto) (0-2) /HPF U Epithel Cells (Auto) (FEW) /HPF Urine Bacteria (Auto) (NEGATIVE) /HPF Urine Culture Reflexed (NO) Urine Glucose (NEGATIVE) mg/dL Influenza Type A Ag (NEGATIVE) Influenza Type B Ag (NEGATIVE) RSV (PCR) (Negative) SARS-CoV-2 (PCR) (NEGATIVE) Radiology Exams: Radiology Procedures Category Date Time Status CHEST 1 VIEW (PORTABLE) Stat Exams 10/24/21 11:43 Completed Assessment/Plan (1) Generalized weakness Current Visit: Yes Status: Acute Assessment & Plan: not henrik po well. Code(s): R53.1 - WEAKNESS (2) Influenzal pneumonia Current Visit: Yes Status: Acute Assessment & Plan: sputum sample to be obtained, pt is able to expectorate today. She is markedly short of breath even at rest. on Levaquin day 32 and duonebs, with IV steroid 40mg q8h. Using flutter valves. Code(s): J11.00 - FLU DUE TO UNIDENTIFIED FLU VIRUS W UNSP TYPE OF PNEUMONIA (3) Hyponatremia Current Visit: Yes Status: Acute Assessment & Plan: changed IV fluids to LR. recheck in a.m. May need to restrict fluids, particularly if she is not eating well again tomorrow. Code(s): E87.1 - HYPO-OSMOLALITY AND HYPONATREMIA (4) Hypocalcemia Current Visit: Yes Status: Acute Assessment & Plan: corrected calcium is 7.9. check PTH Code(s): E83.51 - HYPOCALCEMIA
[2021-10-25] MEDS: ZOCOR 20MG PO SCH (21:20)
[2021-10-25] MEDS ORDERED: NON-FORMULARY ITEM (Rosuvastatin Calcium [Crestor] 20 MG Tablet) PO SCH (22:00)
[2021-10-26] MEDS: DUONEB 0.5-3 MG/3 ml Neb IH SCH ×4 (02:05→19:10)
[2021-10-26 05:39] LABS: Absolute Neutrophil Ct (ANC) 8.28 (1.4-6.9); Basophil (Absolute #) 0 (0-0.4); Eosinophil (Absolute #) 0 (0-0.5); Hematocrit 28.5 % (35-47); Hemoglobin 9.4 gm/dl (12.0-16.0); Lymphocyte (Absolute #) 0.74 (1.0-4.6); Mean Cell Volume 98.6 fl (78-100); Mean Corpuscular Hemoglobin 32.5 pg (26-32); Mean Platelet Volume 8.7 fl (7.5-11.0); Monocyte (Absolute #) 0.27 (0.0-1.3); Monocytes % 2.9 % (0.0-12.0); Neutrophil % 89.1 % (36.0-66.0); Platelet Count 226 K/mm3 (150-450); Red Blood Count 2.89 M/mm3 (4.1-5.4); Red Cell Distribution Width 12.7 % (11.5-14.0); White Blood Count 9.3 K/mm3 (4.0-10.5)
[2021-10-26] MEDS: Lactated Ringers 1,000 ML IV SCH ×2 (05:53→17:31)
[2021-10-26] MEDS: solu-MEDROL IV SCH ×4 (05:53→22:57)
[2021-10-26 06:44] LABS: ALBUMIN 2.7 g/dL (3.5-5.0); ALKALINE PHOSPHATASE 44 U/L (38-126); ANION GAP 8.7 MEQ/L (5-15); BLOOD UREA NITROGEN 18 mg/dL (7-17); CHLORIDE 102 mmol/L (98-107); Calcium 7.5 mg/dL (8.4-10.2); Carbon Dioxide 23 mmol/L (22-30); Creatinine 1 0.75 mg/dL (0.52-1.04); EST GLOMERULAR FILTRATION RATE > 60.0 ML/MIN; Glucose 146 mg/dL (74-106); Potassium 3.6 mmol/L (3.5-5.1); SGOT/AST 20 U/L (14-36); SGPT/ALT 20 U/L (0-35); SODIUM 130 mmol/L (137-145)
[2021-10-26] MEDS: Advair Hfa 115/21 Common canister IH SCH ×2 (06:58→19:10)
[2021-10-26] MEDS: COREG 12.5 MG PO SCH ×2 (08:09→17:26)
--- NOTE | 2021-10-26 09:17 | PCM.NOTE ---
Date and Time: 10/26/21912 Subjective Assessment: She did eat a grilled cheese last night. Not feeling well today; c/o pain in her mouth and still having shortness of breath. Objective Exam General Appearance: mild distress, anxiety Neurologic Exam: oriented x 3, cooperative Skin Exam: normal color, warm, dry, No rash Ears, Nose, Throat Exam: other (bottom lip dry with mild erythema.) Respiratory Exam: diminished breath sounds (fair air exchange), wheezing (expiratory), No crackles/rales, No rhonchi Cardiovascular Exam: regular rate/rhythm, normal heart sounds, No murmur Extremity Exam: normal inspection, No pedal edema, No swelling Back Exam: normal inspection, No rash OBJECTIVE DATA Vital Signs: Vital Signs - 24 hr Temp Pulse Resp BP Pulse Ox 10/26/21 07:22 96.9 F 63 18 121/64 97 10/26/21 07:01 72 20 97 10/26/21 03:42 96.7 F 69 20 110/62 96 10/26/21 02:05 68 21 95 10/25/21 23:58 98.5 F 64 16 104/54 92 L 10/25/21 20:35 92 L 10/25/21 19:59 98.5 F 65 18 102/54 97 10/25/21 19:05 64 20 96 10/25/21 16:00 98.5 F 63 22 144/67 97 10/25/21 13:21 70 18 98 10/25/21 12:00 97.7 F 69 21 117/58 99 Pain Assessment - Last Documented Pain Intensity 4 Pain Scale Used [facility] Intake and Output: Intake & Output 10/23/21 10/24/21 10/25/21 10/26/21 11:59 11:59 11:59 11:59 Intake Total 340 3819 Output Total 450 1650 Balance -110 2169 Weight 64.6 kg 63.4 kg 63.4 kg Lab Results: Lab Results-Last 24 Hours 10/25/21 10/25/21 10/25/21 Range/Units 12:01 14:15 17:14 WBC (4.0-10.5) K/mm3 RBC (4.1-5.4) M/mm3 Hgb (12.0-16.0) gm/dl Hct (35-47) % MCV (78-100) fl MCH (26-32) pg MCHC (32-36) g/dl RDW (11.5-14.0) % Plt Count (150-450) K/mm3 MPV (7.5-11.0) fl Gran % (36.0-66.0) % Eos # (Auto) (0-0.5) Absolute Lymphs (auto) (1.0-4.6) Absolute Monos (auto) (0.0-1.3) Lymphocytes % (24.0-44.0) % Monocytes % (0.0-12.0) % Eosinophils % (0.00-5.0) % Basophils % (0.0-0.4) % Absolute Granulocytes (1.4-6.9) Basophils # (0-0.4) Sodium (137-145) mmol/L Potassium (3.5-5.1) mmol/L Chloride (98-107) mmol/L Carbon Dioxide (22-30) mmol/L Anion Gap (5-15) MEQ/L BUN (7-17) mg/dL Creatinine (0.52-1.04) mg/dL Estimated GFR ML/MIN Glucose (74-106) mg/dL POC Glucometer 216 H 147 H (74 to 106) mg/dL Hemoglobin A1c 5.76 (4.5-6.0) % Calcium (8.4-10.2) mg/dL Total Bilirubin (0.2-1.3) mg/dL AST (14-36) U/L ALT (0-35) U/L Alkaline Phosphatase (38-126) U/L Serum Total Protein (6.3-8.2) g/dL Albumin (3.5-5.0) g/dL 10/25/21 10/26/21 10/26/21 Range/Units 21:32 05:00 05:00 WBC 9.3 (4.0-10.5) K/mm3 RBC 2.89 L (4.1-5.4) M/mm3 Hgb 9.4 L (12.0-16.0) gm/dl Hct 28.5 L (35-47) % MCV 98.6 (78-100) fl MCH 32.5 H (26-32) pg MCHC 33.0 (32-36) g/dl RDW 12.7 (11.5-14.0) % Plt Count 226 (150-450) K/mm3 MPV 8.7 (7.5-11.0) fl Gran % 89.1 H (36.0-66.0) % Eos # (Auto) 0 (0-0.5) Absolute Lymphs (auto) 0.74 L (1.0-4.6) Absolute Monos (auto) 0.27 (0.0-1.3) Lymphocytes % 8.0 L (24.0-44.0) % Monocytes % 2.9 (0.0-12.0) % Eosinophils % 0.0 (0.00-5.0) % Basophils % 0.0 (0.0-0.4) % Absolute Granulocytes 8.28 H (1.4-6.9) Basophils # 0 (0-0.4) Sodium 130 L (137-145) mmol/L Potassium 3.6 (3.5-5.1) mmol/L Chloride 102 (98-107) mmol/L Carbon Dioxide 23 (22-30) mmol/L Anion Gap 8.7 (5-15) MEQ/L BUN 18 H (7-17) mg/dL Creatinine 0.75 (0.52-1.04) mg/dL Estimated GFR > 60.0 ML/MIN Glucose 146 H (74-106) mg/dL POC Glucometer 173 H (74 to 106) mg/dL Hemoglobin A1c (4.5-6.0) % Calcium 7.5 L (8.4-10.2) mg/dL Total Bilirubin 0.50 (0.2-1.3) mg/dL AST 20 (14-36) U/L ALT 20 (0-35) U/L Alkaline Phosphatase 44 (38-126) U/L Serum Total Protein 5.0 L (6.3-8.2) g/dL Albumin 2.7 L (3.5-5.0) g/dL 10/26/21 Range/Units 07:13 WBC (4.0-10.5) K/mm3 RBC (4.1-5.4) M/mm3 Hgb (12.0-16.0) gm/dl Hct (35-47) % MCV (78-100) fl MCH (26-32) pg MCHC (32-36) g/dl RDW (11.5-14.0) % Plt Count (150-450) K/mm3 MPV (7.5-11.0) fl Gran % (36.0-66.0) % Eos # (Auto) (0-0.5) Absolute Lymphs (auto) (1.0-4.6) Absolute Monos (auto) (0.0-1.3) Lymphocytes % (24.0-44.0) % Monocytes % (0.0-12.0) % Eosinophils % (0.00-5.0) % Basophils % (0.0-0.4) % Absolute Granulocytes (1.4-6.9) Basophils # (0-0.4) Sodium (137-145) mmol/L Potassium (3.5-5.1) mmol/L Chloride (98-107) mmol/L Carbon Dioxide (22-30) mmol/L Anion Gap (5-15) MEQ/L BUN (7-17) mg/dL Creatinine (0.52-1.04) mg/dL Estimated GFR ML/MIN Glucose (74-106) mg/dL POC Glucometer 142 H (74 to 106) mg/dL Hemoglobin A1c (4.5-6.0) % Calcium (8.4-10.2) mg/dL Total Bilirubin (0.2-1.3) mg/dL AST (14-36) U/L ALT (0-35) U/L Alkaline Phosphatase (38-126) U/L Serum Total Protein (6.3-8.2) g/dL Albumin (3.5-5.0) g/dL Radiology Exams: Radiology Procedures Category Date Time Status CHEST 1 VIEW (PORTABLE) Stat Exams 10/24/21 11:43 Completed Assessment/Plan (1) Influenzal pneumonia Current Visit: Yes Status: Acute Assessment & Plan: On levaquin IV and solumedrol, increased dose from yesterday with no improvement. She is not on O2 but very dyspneic and still wheezy. Will consult pulmonology. Code(s): J11.00 - FLU DUE TO UNIDENTIFIED FLU VIRUS W UNSP TYPE OF PNEUMONIA (2) Generalized weakness Current Visit: Yes Status: Acute Assessment & Plan: did henrik some po, would encourage eating. Code(s): R53.1 - WEAKNESS (3) Hyponatremia Current Visit: Yes Status: Acute Code(s): E87.1 - HYPO-OSMOLALITY AND HYPONATREMIA (4) Hypocalcemia Current Visit: Yes Status: Acute Assessment & Plan: albumin is also quite low. Code(s): E83.51 - HYPOCALCEMIA (5) Mouth pain Current Visit: Yes Status: Acute Assessment & Plan: pharmacy is ordering dental paste - will be in tomorrow. Code(s): K13.79 - OTHER LESIONS OF ORAL MUCOSA
[2021-10-26] MEDS: Mucinex 600MG ER Tabs PO SCH ×2 (09:34→21:14)
[2021-10-26] MEDS: Levofloxacin 500MG/100ML D5W 500 MG/100 ML BAG IV SCH (09:34)
[2021-10-26] MEDS: Cozaar 50 MG PO SCH ×2 (09:34→21:13)
[2021-10-26] MEDS: Tamiflu 75MG Capsule PO SCH ×2 (09:34→21:14)
[2021-10-26] MEDS: PLAVIX 75 MG Tablet PO SCH (09:34)
[2021-10-26] MEDS: Klor Con 10 MEQ PO SCH (09:34)
[2021-10-26] MEDS: THERAGRAN MULTIVITAMIN PO SCH (09:35)
[2021-10-26] MEDS: Calcium 500MG W/Vit D Tablet PO SCH ×2 (09:35→21:13)
[2021-10-26] MEDS: ECOTRIN 81 MG PO SCH (09:35)
[2021-10-26] MEDS: Pepcid 20 MG PO SCH ×2 (09:35→21:14)
[2021-10-26] MEDS: NORVASC 5 MG PO SCH (09:36)
[2021-10-26] MEDS: PROTONIX 40 MG IV IV SCH (09:36)
[2021-10-26] MEDS: Miralax Powder 17GM PACKET PO PRN (10:53)
[2021-10-26] MEDS: ZOCOR 20MG PO SCH (21:14)
[2021-10-27] MEDS: DUONEB 0.5-3 MG/3 ml Neb IH SCH ×2 (00:05→06:47)
[2021-10-27] MEDS: solu-MEDROL IV SCH ×2 (05:10→11:52)
[2021-10-27] MEDS: Lactated Ringers 1,000 ML IV SCH (05:12)
[2021-10-27] MEDS: Advair Hfa 115/21 Common canister IH SCH (06:48)
[2021-10-27] MEDS: COREG 12.5 MG PO SCH (07:44)
--- NOTE | 2021-10-27 09:08 | PCM.DS ---
Discharge Summary Date of Admission: 10/25/21 15:27 Admitting Physician: MARIUSZ LINARES Consults: Consults on Case 10/26/21 09:18 Consult Pulmonology ROUTINE Primary Care Provider: MARIUSZ LINARES Allergies Allergies iodine Allergy (Severe, Verified 10/24/21 11:11) [facility] Summary - Hospital Course Hospital Course: Pt is still SOB with some oral pain. Tolerating po with care. Was seen by Dr. Guzman yesterday; she is a patient of his and he said she was sounding better. - Vitals & Intake/Output Vital Signs: Vital Signs Temperature 97.3 F 10/27/21 07:08 Pulse Rate 55 L 10/27/21 07:08 Respiratory Rate 16 10/27/21 07:08 Blood Pressure 153/71 10/27/21 07:08 O2 Sat by Pulse Oximetry 96 10/27/21 07:08 Intake & Output: Intake & Output 10/24/21 10/25/21 10/26/21 10/27/21 11:59 11:59 11:59 11:59 Intake Total 340 3819 2823 Output Total 450 1650 1700 Balance -110 2169 1123 Weight 64.6 kg 63.4 kg 63.4 kg - Lab Result Diagrams: 10/26/21 05:00 10/26/21 05:00 Lab Results-Last 24 Hrs: Lab Results-Last 24 Hours 10/26/21 10/26/21 10/26/21 Range/Units 11:12 16:19 23:01 POC Glucometer 199 H 182 H 155 H (74 to 106) mg/dL 10/27/21 Range/Units 07:01 POC Glucometer 115 H (74 to 106) mg/dL Micro Results-Entire Visit: Microbiology 10/24/21 12:26 Blood Culture - Preliminary Blood NO GROWTH TO DATE 10/24/21 12:10 Blood Culture - Preliminary Blood NO GROWTH TO DATE 10/24/21 16:16 Urine Culture - Final Catherized NO GROWTH 10/25/21 10:20 Gram Stain - Final Sputum - Expectorant Accuchecks Date 10/27/21 Date 10/26/21 Date 10/26/21 Time 07:08 Time 16:39 Time 11:37 - Procedures and Test Procedures and Tests throughout Hospitalization: Therapy Orders & Screens 10/24/21 13:11 Respiratory Therapy Assessment DAILY Comment: 10/24/21 17:44 Oxygen Nasal Cannula 2 lpm Comment: 10/24/21 18:47 OT Screen per Nursing Assess ONCE Comment: Protocol Order Physician Instructions: Greater than 3 points order OT Admission Screening Reason For Exam: Triggered on Admission Diagnosis: Pneumonia Open Wound/Cellutlitis/Pressure Ulcers: No Acute Fx/ORIF/Change in wt bearing status: No Severe MUSCULOSKELETAL pain: No ADL Dysfunction: Yes Acute CVA w/Hemiparesis/Hemiplegia: No Decreased Functional Mobility/Strength: Yes Sprain/Strain: No Acute Post-op Mobility Dysfunction: No Total Points: 4 PT Screen per Nursing Assess ONCE Comment: Protocol Order Physician Instructions: Greater than 3 points order PT Admission Screenin Reason For Exam: Triggered on Admission Diagnosis: Pneumonia Open Wound/Cellutlitis/Pressure Ulcers: No Acute Fx/ORIF/Change in wt bearing status: No Severe MUSCULOSKELETAL pain: No ADL Dysfunction: Yes Acute CVA w/Hemiparesis/Hemiplegia: No Decreased Functional Mobility/Strength: Yes Sprain/Strain: No Acute Post-op Mobility Dysfunction: No Total Points: 4 10/24/21 19:14 Respiratory MDI BID Comment: Diagnosis: shortness of breath for 1 week 10/25/21 00:46 Flutter Therapy UD Comment: Diagnosis: shortness of breath for 1 week Discharge Exam General Appearance: no apparent distress, alert Neurologic Exam: oriented x 3, cooperative Eye Exam: eyes nml inspection Ears, Nose, Throat Exam: other (bottom lip is dry and with some patchy erythema. oral cavity, lower jaw without obvious lesions. edentulous.) Respiratory Exam: diminished breath sounds (fair to good air exchange), rhonchi (scattered), wheezing (scattered expiratory), No crackles/rales Cardiovascular Exam: regular rate/rhythm, normal heart sounds, No murmur Extremity Exam: normal inspection, No pedal edema, No swelling Skin Exam: normal color, warm, dry, No rash Final Diagnosis/Problem List - Final Discharge Diagnosis/Problem (1) Influenzal pneumonia Current Visit: Yes Status: Acute Assessment & Plan: She has been on room air throughout her stay. Continues to be short of breath, but with her chronic lung disease she may take a while to return to baseline. Will finish 7d of antibiotic treatment (on day #4 today). F/u with Dr. Linares and Dr. Guzman. Code(s): J11.00 - FLU DUE TO UNIDENTIFIED FLU VIRUS W UNSP TYPE OF PNEUMONIA (2) Generalized weakness Current Visit: Yes Status: Acute Assessment & Plan: Lives alone. Will need to increase activity slowly. HHC was offered and pt declined. Code(s): R53.1 - WEAKNESS (3) Hyponatremia Current Visit: Yes Status: Acute Assessment & Plan: will recheck prior to discharge. Code(s): E87.1 - HYPO-OSMOLALITY AND HYPONATREMIA (4) Hypocalcemia Current Visit: Yes Status: Acute Code(s): E83.51 - HYPOCALCEMIA (5) Mouth pain Current Visit: Yes Status: Acute Assessment & Plan: will get oral gel from pharmacy prior to her discharge. Code(s): K13.79 - OTHER LESIONS OF ORAL MUCOSA - Discharge Disposition: Home, Self-Care Condition: Stable Prescriptions: New Prednisone 10 mg [Deltasone 10 mg] 10 mg PO DAILY #5 tablet Prednisone 20 mg [Deltasone 20 mg] 20 mg PO DAILY #18 tablet Guaifenesin 600 mg ER [Mucinex 600MG ER Tabs] 1,200 mg PO BID tablet Continue Potassium Chloride [Klor-Con] 20 meq PO DAILY Losartan Potassium [Cozaar] 25 mg PO BID Furosemide [Lasix] 20 mg PO DAILY Famotidine 20 mg [Pepcid 20 MG] 20 mg PO BID Clopidogrel Bisulfate 75 mg [PLAVIX 75 MG Tablet] 75 mg PO DAILY Carvedilol [Coreg] 25 mg PO BID Aspirin EC 81 mg [Ecotrin 81 mg] 81 mg PO DAILY Amlodipine Besylate [Norvasc] 2.5 mg PO DAILY Albuterol 2.5 mg/3 ml Neb [Proventil 2.5 mg/3 ml Neb] 2.5 mg IH QID Rosuvastatin Calcium [Crestor] 20 mg PO HS Multivitamin [Multiple Vitamins] 1 each PO DAILY Alendronate Sodium 70 mg [Fosamax 70 MG] 70 mg PO WEEKLY Non-Formulary Drug [Non-Formulary Bulk Item] 1 inh IH BID Thai/D3/Mag11/Zinc/Hosiery Mender/Chuy/Bor [Caltrate 600+D Plus Tablet] 1 tablet PO BID Albuterol/Ipratropium 3ml Neb* [DUONEB 0.5-3 MG/3 ml Neb] 3 ml IH QID #120 each Levofloxacin [Levofloxacin 500 MG Tablet] 500 mg PO DAILY #3 tablet Discontinued Oseltamivir 75 mg [Tamiflu 75MG Capsule] 75 mg PO BID 3 Days #6 cap Methylprednisolone Packet [Medrol Dosepack] 4 mg PO UD #1 packet Follow up with: MARIUSZ LINARES MD [Primary Care Provider] -
--- NOTE | 2021-10-27 09:15 | CONS ---
CONSULT DATE: 10/26/2021 HISTORY: Georgiana Lee is a 76-year-old woman with history of obstructive airways disease, known to me, who has been admitted to [facility] with complaints of shortness of breath. The patient tested positive for influenza and has been treated for the same. She also reports cough productive of minimal expectoration. She has been receiving bronchodilators along with steroids which appear to have helped. At the time of my evaluation, the patient is on room air. She is able to carry out a good conversation. She has also been treated with Tamiflu as well. PAST MEDICAL HISTORY: Positive for history of chronic obstructive pulmonary disease, hypertension, dyslipidemia, osteoarthritis, coronary artery disease. PAST SURGICAL HISTORY: Appendectomy. Coronary artery bypass graft surgery. Cholecystectomy. PERSONAL AND SOCIAL HISTORY: Former smoker. MEDICATIONS: Home and current medications are reviewed. ALLERGIES: IODINE. PHYSICAL EXAMINATION: This is an elderly woman who appears mildly tachypneic but is able to carry out good conversation. Vital signs noted. HEENT: Normocephalic. Oropharynx is limited. CVS: First and second heart sounds are normal, regular, rhythmic. RESPIRATORY: Shows diminished breath sounds, scattered rhonchi heard. ABDOMEN: Soft. EXTREMITIES: Trace edema is noted. LABORATORY DATA AND TESTS: Labs: Cultures have remained negative to date. White count 9.3, hemoglobin 9.4, hematocrit 28.5, PLT count 226,000. Sodium 130, potassium 3.6, chloride 102, bicarb 23, glucose 146, BUN 18, creatinine 0.75. Troponin has been negative. Influenza A positive. Chest x-ray shows chronic obstructive pulmonary disease with no acute abnormality. ASSESSMENT: This is a 76-year-old woman admitted with: 1) Worsening shortness of breath likely from viral pneumonia from influenza A. 2) Chronic obstructive pulmonary disease with mild exacerbation. 3) Acute bronchitis. 4) Coronary artery disease. 5) Comorbidities listed above. RECOMMENDATIONS: 1) I agree with present treatment. 2) The patient appears to be already improving. She was started on Tamiflu along with antibiotics, steroids with taper and bronchodilators, continue other medications. Will follow up in office. Thank you for allowing me to participate in the care of your patient.
[2021-10-27] MEDS: Mucinex 600MG ER Tabs PO SCH (09:43)
[2021-10-27] MEDS: NORVASC 5 MG PO SCH (09:43)
[2021-10-27] MEDS: Klor Con 10 MEQ PO SCH (09:43)
[2021-10-27] MEDS: ECOTRIN 81 MG PO SCH (09:44)
[2021-10-27] MEDS: THERAGRAN MULTIVITAMIN PO SCH (09:44)
[2021-10-27] MEDS: Cozaar 50 MG PO SCH (09:44)
[2021-10-27] MEDS: PLAVIX 75 MG Tablet PO SCH (09:44)
[2021-10-27] MEDS: Calcium 500MG W/Vit D Tablet PO SCH (09:44)
[2021-10-27] MEDS: Tamiflu 75MG Capsule PO SCH (09:44)
[2021-10-27] MEDS: PROTONIX 40 MG IV IV SCH (09:45)
[2021-10-27] MEDS: Levofloxacin 500MG/100ML D5W 500 MG/100 ML BAG IV SCH (09:45)
[2021-10-27] MEDS: Pepcid 20 MG PO SCH (09:45)
[2021-10-27] MEDS: Miralax Powder 17GM PACKET PO PRN (10:02)
[2021-10-27 10:27] LABS: ANION GAP 8.6 MEQ/L (5-15); BLOOD UREA NITROGEN 16 mg/dL (7-17); CHLORIDE 95 mmol/L (98-107); Calcium 7.6 mg/dL (8.4-10.2); Carbon Dioxide 23 mmol/L (22-30); Creatinine 1 0.86 mg/dL (0.52-1.04); EST GLOMERULAR FILTRATION RATE > 60.0 ML/MIN; Glucose 183 mg/dL (74-106); Potassium 3.7 mmol/L (3.5-5.1); SODIUM 123 mmol/L (137-145)
[2021-10-27] MEDS ORDERED: TRIAMCINOLONE ACETONIDE DT SCH (11:30)
[2021-10-27 11:35] VITALS: BP 139/62; PULSE 61; O2SAT 97
[2021-10-30] MEDS ORDERED: Fosamax 70 MG PO SCH (06:00)
== END 2021-10-27 12:43 | disposition home or self-care (01) | DRG 194 ==
LOC: ED 10:56 → MED SURG 17:38 → OBSVTOIN 10-25 15:27
PROVIDERS: ADMIT General Practice; ATTEND General Practice
DX: J11.00 Influenza due to unidentified influenza virus with unspecified type of pneumonia (principal); E87.1 Hypo-osmolality and hyponatremia; R53.1 Weakness; E83.51 Hypocalcemia; K13.79 Other lesions of oral mucosa; I25.10 Atherosclerotic heart disease of native coronary artery without angina pectoris; E78.00 Pure hypercholesterolemia, unspecified; I10 Essential (primary) hypertension; J44.9 Chronic obstructive pulmonary disease, unspecified; Z79.899 Other long term (current) drug therapy; Z20.828 Contact with and (suspected) exposure to other viral communicable diseases
CPT/HCPCS: 0241U; 36415; 51702; 71045; 80048; 80053; 81001; 82947; 83036; 83605; 83735; 83880; 83970; 84484; 85025; 87040; 87070; 87077; 87086; 87186; 93041; 93268; 94640; 94667; 94668; 94760; 96374; 99285; G0378; J1100; J1956; J2920; A9270-GY

== ENCOUNTER 2021-11-04 03:36 | Inpatient (IN) | payer MEDICARE, BC ==
--- NOTE | 2021-11-04 04:03 | ERPHSYRPT ---
- History of Present Illness Time Seen by Provider: 11/04/21 03:55 Source: patient, EMS Exam Limitations: no limitations Physician History: This is a 76-year-old white female patient of Dr. Linares and presents with vomiting episodes yesterday, weakness and fall injury hitting her face at home prior to arrival. She got up this morning to use the restroom and then fell forward. Patient arrives via EMS with a c-collar in place. Patient has a history of coronary artery disease, elevated cholesterol, hypertension and COPD. Patient lives alone. Timing/Duration: today Severity: moderate Associated Symptoms: vomiting (Coffee-ground prescription), weakness, No shortness of breath, No chest pain Allergies/Adverse Reactions: iodine Allergy (Severe, Verified 10/24/21 11:11) Hives Home Medications: Albuterol 2.5 mg/3 ml Neb [Proventil 2.5 mg/3 ml Neb] 2.5 mg IH QID 08/06/20 [History] Amlodipine Besylate [Norvasc] 2.5 mg PO DAILY 08/06/20 [History] Aspirin EC 81 mg [Ecotrin 81 mg] 81 mg PO DAILY 08/06/20 [History] Carvedilol [Coreg] 25 mg PO BID 08/06/20 [History] Clopidogrel Bisulfate 75 mg [PLAVIX 75 MG Tablet] 75 mg PO DAILY 08/06/20 [History] Famotidine 20 mg [Pepcid 20 MG] 20 mg PO BID 08/06/20 [History] Furosemide [Lasix] 20 mg PO DAILY 08/06/20 [History] Losartan Potassium [Cozaar] 25 mg PO BID 08/06/20 [History] Potassium Chloride [Klor-Con] 20 meq PO DAILY 08/06/20 [History] Rosuvastatin Calcium [Crestor] 20 mg PO HS 08/06/20 [History] Multivitamin [Multiple Vitamins] 1 each PO DAILY 05/23/21 [History] Alendronate Sodium 70 mg [Fosamax 70 MG] 70 mg PO WEEKLY 10/16/21 [History] Thai/D3/Mag11/Zinc/Adjunct Writing Instructor/Chuy/Bor [Caltrate 600+D Plus Tablet] 1 tablet PO BID 10/16/21 [History] Non-Formulary Drug [Non-Formulary Bulk Item] 1 inh IH BID 10/16/21 [History] Hx Tetanus, Diphtheria Vaccination/Date Given: No (unknown) Hx Influenza Vaccination/Date Given: Yes Hx Pneumococcal Vaccination/Date Given: Yes Travel Risk - International Travel Have you traveled outside of the country in past 3 weeks: No - Coronavirus Screening Are you exhibiting any of the following symptoms?: No Close contact with a COVID-19 positive Pt in past 14-21 Days: No - Vaccine Status Have you recieved a Covid-19 vaccination: Yes 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 - Vaccination Dates Date of 2cond Vaccination (if applicable): 02/01/2021 Comment: got the booster a few days ago - Review of Systems Constitutional: Weakness Eyes: No Symptoms Ears, Nose, & Throat: Other (Nasal bridge deformity) Respiratory: No Symptoms Cardiac: No Symptoms Abdominal/Gastrointestinal: Hematemesis Genitourinary Symptoms: No Symptoms Musculoskeletal: No Symptoms Skin: No Symptoms Neurological: No Symptoms Psychological: No Symptoms Endocrine: No Symptoms Hematologic/Lymphatic: No Symptoms Immunological/Allergic: No Symptoms All Other Systems: Reviewed and Negative - Past Medical History Pertinent Past Medical History: Yes Neurological History: No Pertinent History ENT History: Cataracts Cardiac History: Coronary Artery Disease, High Cholesterol, Hypertension Respiratory History: COPD, Emphysema, Pneumonia Endocrine Medical History: No Pertinent History Musculoskeletal History: Arthritis, Osteoarthritis GI Medical History: GERD, Polyps History: No Pertinent History Psycho-Social History: No Pertinent History Female Reproductive Disorders: No Pertinent History - Past Surgical History Past Surgical History: Yes Neuro Surgical History: No Pertinent History Cardiac: CABG Respiratory: No Pertinent History Gastrointestinal: Appendectomy, Cholecystectomy Genitourinary: No Pertinent History Musculoskeletal: Orthopedic Surgery Female Surgical History: Hysterectomy, Tubal Ligation Other Surgical History: 2 screws in lower back,carpal tunnel release to right wrist - Social History Smoking Status: Former smoker Exposure to second hand smoke: No Drug Use: none Patient Lives Alone: Yes - Nursing Vital Signs Nursing Vital Signs: Initial Vital Signs Temperature 99.1 F 11/04/21 03:41 Pulse Rate 70 11/04/21 03:41 Respiratory Rate 18 11/04/21 03:41 Blood Pressure 93/55 11/04/21 03:41 O2 Sat by Pulse Oximetry 99 11/04/21 03:41 Pain Scale Pain Intensity 6 - Physical Exam General Appearance: no apparent distress, alert, anxiety Eye Exam: PERRL/EOMI, eyes nml inspection Ears, Nose, Throat Exam: moist mucous membranes, other (Nasal bridge deformity, swelling and ecchymosis. Patient also has an abrasion of the upper lip.) Neck Exam: other Respiratory Exam: normal breath sounds (Collar in place), lungs clear, airway intact, No chest tenderness, No respiratory distress Cardiovascular Exam: regular rate/rhythm, normal heart sounds, normal peripheral pulses Gastrointestinal/Abdomen Exam: soft, normal bowel sounds, No tenderness Pelvic Exam: not done Rectal Exam: not done Back Exam: normal inspection, normal range of motion, No CVA tenderness, No vertebral tenderness Extremity Exam: normal inspection, normal range of motion, pelvis stable Neurologic Exam: alert, oriented x 3, cooperative, personal injury legal assistant II-XII nml as tested, sensation nml Skin Exam: warm, dry, pale Lymphatic Exam: No adenopathy SpO2 Interpretation: normal O2 Delivery: Room Air - Course Nursing assessment & vital signs reviewed: Yes EKG Interpreted by Me: RATE (68), Sinus Rhythm, NORMAL AXIS, NORMAL INTERVALS, NORMAL QRS, NORMAL ST-T, Other (No acute ischemic changes on today's EKG. When compared to EKG dated 10/25/2021, there is no significant changes.) Ordered Tests: Active Orders 24 hr Category Date Time Status Cardiac Care Nurse STAT Care 11/04/21 04:03 Active EKG-ER Only STAT Care 11/04/21 04:03 Active Pulse Oximetry (ED) STAT Care 11/04/21 04:03 Active CERVICAL SPINE WO CONTRAST [CT] Stat Exams 11/04/21 04:04 Taken FACIAL BONES WO CONTRAST [CT] Stat Exams 11/04/21 04:04 Taken HEAD WITHOUT CONTRAST [CT] Stat Exams 11/04/21 04:04 Taken CBC W DIFF Stat Lab 11/04/21 04:28 Completed CMP Stat Lab 11/04/21 04:28 Completed TROPONIN Q3H Lab 11/04/21 04:28 Completed TROPONIN Q3H Lab 11/04/21 07:15 Ordered TROPONIN Q3H Lab 11/04/21 10:15 Ordered TROPONIN Q3H Lab 11/04/21 13:15 Ordered TROPONIN Q3H Lab 11/04/21 16:15 Ordered UA W/RFX UR CULTURE Stat Lab 11/04/21 04:04 Ordered Medication Summary Generic Name Dose Route Start Last Admin Trade Name Jacqueline PRN Reason Stop Dose Admin Sodium Chloride 1,000 mls @ 200 mls/hr 11/04/21 04:15 11/04/21 04:33 Sodium Chloride 0.9% 1000 Ml IV 12/04/21 04:14 200 mls/hr .Q5H MICKY Administration Discontinued Medications Generic Name Dose Route Start Last Admin Trade Name Jacqueline PRN Reason Stop Dose Admin Pantoprazole Sodium 40 mg 11/04/21 04:56 11/04/21 05:09 Pantoprazole 40 Mg Vial IV 11/04/21 04:57 40 mg STAT ONE Administration Pantoprazole Sodium Confirm 11/04/21 05:08 Pantoprazole 40 Mg Vial Administered 11/04/21 05:09 Dose 40 mg IV .STVermillion-MED ONE Lab/Rad Data: Laboratory Result Diagrams 11/04/21 04:28 11/04/21 04:28 Laboratory Results 11/04/21 11/04/21 11/04/21 Range/Units 05:02 04:54 04:28 WBC (4.0-10.5) K/mm3 RBC (4.1-5.4) M/mm3 Hgb (12.0-16.0) gm/dl Hct (35-47) % MCV (78-100) fl MCH (26-32) pg MCHC (32-36) g/dl RDW (11.5-14.0) % Plt Count (150-450) K/mm3 MPV (7.5-11.0) fl Gran % (36.0-66.0) % Eos # (Auto) (0-0.5) Absolute Lymphs (auto) (1.0-4.6) Absolute Monos (auto) (0.0-1.3) Lymphocytes % (24.0-44.0) % Monocytes % (0.0-12.0) % Eosinophils % (0.00-5.0) % Basophils % (0.0-0.4) % Absolute Granulocytes (1.4-6.9) Basophils # (0-0.4) Sodium (137-145) mmol/L Potassium (3.5-5.1) mmol/L Chloride (98-107) mmol/L Carbon Dioxide (22-30) mmol/L Anion Gap (5-15) MEQ/L BUN (7-17) mg/dL Creatinine (0.52-1.04) mg/dL Estimated GFR ML/MIN Glucose (74-106) mg/dL Calcium (8.4-10.2) mg/dL Total Bilirubin (0.2-1.3) mg/dL AST (14-36) U/L ALT (0-35) U/L Alkaline Phosphatase (38-126) U/L Troponin I < 0.012 (0.000-0.034) ng/mL Serum Total Protein (6.3-8.2) g/dL Albumin (3.5-5.0) g/dL ABO Group O Rh Factor POSITIVE Antibody Screen NEGATIVE (NEGATIVE) Crossmatch COMPATIBLE COMPATIBLE (COMPATIBLE) 11/04/21 11/04/21 Range/Units 04:28 04:28 WBC 10.9 H (4.0-10.5) K/mm3 RBC 1.83 L (4.1-5.4) M/mm3 Hgb 6.1 L* (12.0-16.0) gm/dl Hct 18.9 L (35-47) % MCV 103.3 H (78-100) fl MCH 33.3 H (26-32) pg MCHC 32.3 (32-36) g/dl RDW 13.7 (11.5-14.0) % Plt Count 162 (150-450) K/mm3 MPV 8.9 (7.5-11.0) fl Gran % 68.7 H (36.0-66.0) % Eos # (Auto) 0.10 (0-0.5) Absolute Lymphs (auto) 2.44 (1.0-4.6) Absolute Monos (auto) 0.86 (0.0-1.3) Lymphocytes % 22.4 L (24.0-44.0) % Monocytes % 7.9 (0.0-12.0) % Eosinophils % 0.9 (0.00-5.0) % Basophils % 0.1 (0.0-0.4) % Absolute Granulocytes 7.47 H (1.4-6.9) Basophils # 0.01 (0-0.4) Sodium 130 L (137-145) mmol/L Potassium 4.1 (3.5-5.1) mmol/L Chloride 102 (98-107) mmol/L Carbon Dioxide 26 (22-30) mmol/L Anion Gap 6.7 (5-15) MEQ/L BUN 65 H (7-17) mg/dL Creatinine 0.89 (0.52-1.04) mg/dL Estimated GFR > 60.0 ML/MIN Glucose 91 (74-106) mg/dL Calcium 7.9 L (8.4-10.2) mg/dL Total Bilirubin 0.60 (0.2-1.3) mg/dL AST 18 (14-36) U/L ALT 13 (0-35) U/L Alkaline Phosphatase 28 L (38-126) U/L Troponin I (0.000-0.034) ng/mL Serum Total Protein 4.1 L (6.3-8.2) g/dL Albumin 2.3 L (3.5-5.0) g/dL ABO Group Rh Factor Antibody Screen (NEGATIVE) Crossmatch (COMPATIBLE) - Progress Progress: improved, pain not gone completely, re-examined Progress Note: 11/04/21 06:31 CAT scan of the cervical spine without contrast shows no acute fracture. There are degenerative changes present. CAT scan of the head without contrast shows no acute intracranial abnormality 11/04/21 06:31 Medical decision making: This patient needs admission into the hospital and blood transfusions of packed red blood cells. I spoke with Dr. Sales who is covering for Dr. Candice beltrán just for the next half hour in order to obtain a COVID swab. Patient has poor peripheral venous access and therefore anesthesia will be by soon to place a line in order to transfuse 2 units packed red blood cells. I will be signing out to Dr. Handley at shift change to follow-up on the COVID test and to call for admission to either COVID unit or medical floor on telemetry. He will call whoever is covering for Dr. Linares. We will also follow-up on the urinalysis test. Discussed with : Julissa Counseled pt/family regarding: lab results, diagnosis, rad results - Departure Departure Disposition: In-patient Admission Clinical Impression: Weakness, Symptomatic anemia, Fall with injury, Hypotension Condition: Fair Critical Care Time: Yes Critical Care Time(excluding separately billable procedures): Critical 30-74 mins (30) Referrals: MARIUSZ LINARES MD [Primary Care Provider] - Follow up/PCP as directed
[2021-11-04] MEDS ORDERED: Sodium Chloride 0.9% 1000 ML 1,000 ML ONE ×2 (04:30→07:44)
[2021-11-04] MEDS: Sodium Chloride 0.9% 1000 ML 1,000 ML IV SCH ×2 (04:33→12:35)
[2021-11-04 04:39] LABS: Absolute Neutrophil Ct (ANC) 7.47 (1.4-6.9); Basophil (Absolute #) 0.01 (0-0.4); Eosinophil % 0.9 % (0.00-5.0); Hematocrit 18.9 % (35-47); Lymphocyte (Absolute #) 2.44 (1.0-4.6); Lymphocytes % 22.4 % (24.0-44.0); Mean Cell Volume 103.3 fl (78-100); Mean Corpuscular Hemoglobin 33.3 pg (26-32); Mean Corpuscular Hgb Concent. 32.3 g/dl (32-36); Mean Platelet Volume 8.9 fl (7.5-11.0); Monocyte (Absolute #) 0.86 (0.0-1.3); Monocytes % 7.9 % (0.0-12.0); Neutrophil % 68.7 % (36.0-66.0); Platelet Count 162 K/mm3 (150-450); Red Blood Count 1.83 M/mm3 (4.1-5.4); Red Cell Distribution Width 13.7 % (11.5-14.0); White Blood Count 10.9 K/mm3 (4.0-10.5)
[2021-11-04 04:48] LABS: Hemoglobin 6.1 gm/dl (12.0-16.0)
[2021-11-04 04:52] LABS: ALBUMIN 2.3 g/dL (3.5-5.0); ALKALINE PHOSPHATASE 28 U/L (38-126); ANION GAP 6.7 MEQ/L (5-15); BLOOD UREA NITROGEN 65 mg/dL (7-17); CHLORIDE 102 mmol/L (98-107); Calcium 7.9 mg/dL (8.4-10.2); Carbon Dioxide 26 mmol/L (22-30); Creatinine 1 0.89 mg/dL (0.52-1.04); EST GLOMERULAR FILTRATION RATE > 60.0 ML/MIN; Glucose 91 mg/dL (74-106); Potassium 4.1 mmol/L (3.5-5.1); SGOT/AST 18 U/L (14-36); SGPT/ALT 13 U/L (0-35); SODIUM 130 mmol/L (137-145); Total Protein 4.1 g/dL (6.3-8.2)
[2021-11-04] MEDS ORDERED: PROTONIX 40 MG IV IV ONE ×2 (04:56→05:08)
[2021-11-04 06:03] LABS: ABO TYPING O; Antibody Screen NEGATIVE (NEGATIVE); RH TYPING POSITIVE
[2021-11-04 06:06] LABS: CROSS MATCH (PRBC) COMPATIBLE (COMPATIBLE)
[2021-11-04] MEDS ORDERED: XYLOCAINE 2% HCL 20 ML MDV ONE (07:03)
[2021-11-04 08:15] LABS: INFLUENZA A NEGATIVE (NEGATIVE); INFLUENZA B NEGATIVE (NEGATIVE); RESPIRATORY SYNCTIAL VIRUS NEGATIVE (Negative); SARS-CoV-2 Xpert Express NEGATIVE (NEGATIVE)
--- NOTE | 2021-11-04 09:11 | XRAY ---
Indication: Face injury following fall. Multiple contiguous axial images obtained through the cervical spine. Sagittal and coronal reformatted images obtained. Comparison: None Osseous structures demineralized consistent with patient's age. Axial images negative for acute fracture or suspicious bony lesions. Mild/moderate C3-C7 degenerative endplate spurring and moderate bilateral C2-C4 degenerative facet hypertrophy. Sagittal and coronal reformatted images demonstrates 3 mm anterolisthesis C3 on C4 and C3-C7 degenerative disc space loss. No acute compression fracture or jumped facet. Normal appearing craniocervical junction. Visualized noncontrasted soft tissues demonstrates moderate bilateral carotid calcifications mild/moderate biapical pulmonary fibrosis/scarring. Base of the brain unremarkable. Impression: 1. Osteopenia, multilevel degenerative spondylosis, and minimal grade 1 C3 spondylolisthesis. 2. Negative acute fracture. 3. Incidental bilateral carotid calcifications and biapical pulmonary fibrosis/scarring. Comment: Preliminary interpretation made by C. No critical discrepancy.
--- NOTE | 2021-11-04 09:14 | XRAY ---
Indication: Facial injury following fall. Multiple contiguous axial images obtained through the head without contrast. Comparison: None Age-appropriate global atrophy and mild periventricular degenerative micro-ischemia bilaterally. Tiny remote lacunar infarct right basal ganglia. No acute intracranial hemorrhage, abnormal extra-axial fluid collection, or mass effect. Fourth ventricle is midline without hydrocephalus. Bony calvarium intact. Paranasal sinuses and mastoid air cells are clear. Impression: Nonacute senile brain with remote lacunar infarct right basal ganglia. Comment: Preliminary interpretation made by C. No critical discrepancy.
--- NOTE | 2021-11-04 09:18 | XRAY ---
Indication: Facial injury following fall. Multiple contiguous axial images obtained through the facial bones. Sagittal and coronal reformatted images obtained. Comparison: None Patient is edentulous. Osseous structures demineralized consistent with patient's age. No acute fracture, suspicious bony lesions, or radiopaque foreign body. Orbits including roof, ibrahim, and floors are intact. TMJ demonstrates advanced degenerative changes bilaterally. Paranasal sinuses and nasal passages are clear. Minimal nasal septal deviation to the right. Remaining visualized noncontrasted soft tissues are unremarkable. CT head and CT cervical spine reported separately. Impression: 1. Negative acute fracture. 2. Incidental osteopenia, bilateral TMJ degenerative changes, and minimal nasal septal deviation. Comment: Preliminary interpretation made by [facility]. No critical discrepancy.
[2021-11-04 10:38] LABS: Appearance CLEAR (CLEAR); Bilirubin NEGATIVE (NEGATIVE); Blood NEGATIVE Ery/ul (0-5); Glucose NEGATIVE (NEGATIVE); Ketones NEGATIVE (NEGATIVE); Leukocyte Esterase NEGATIVE (NEGATIVE); Nitrite NEGATIVE (NEGATIVE); Protein,Urine Dip NEGATIVE (Negative); Specific Gravity 1.016 (1.005-1.025); Urobilinogen NEGATIVE mg/dL (0-1)
[2021-11-04 10:39] LABS: Bacteria FEW /HPF (NEGATIVE); Epithelial Cells FEW /HPF (FEW); RBC 0-2 /HPF (0-2); WBC 0-2 /HPF (0-5)
[2021-11-04] MEDS ORDERED: BENADRYL 25 MG CAPSULE PO ONE (11:08)
[2021-11-04] MEDS ORDERED: TYLENOL 325 MG PO ONE (11:08)
[2021-11-04] MEDS ORDERED: TRIAMCINOLONE ACETONIDE DT PRN (12:14)
[2021-11-04] MEDS ORDERED: [UNRECOGNIZED DRUG - OTHER] DT PRN (12:14)
[2021-11-04] MEDS ORDERED: LASIX 20 MG PO PRN (13:00)
[2021-11-04] MEDS: PROTONIX 40 MG IV*** 80 MG in Sodium Chloride 0.9% 500 ML 500 ML IV SCH ×2 (13:04→22:44)
[2021-11-04] MEDS: Cozaar 50 MG PO SCH ×2 (14:35→22:06)
[2021-11-04] MEDS: COREG 12.5 MG PO SCH ×2 (14:35→21:33)
[2021-11-04] MEDS: NORVASC 5 MG PO SCH (14:36)
[2021-11-04] MEDS: DELTASONE 10 MG PO SCH (14:36)
[2021-11-04] MEDS ORDERED: PROVENTIL 2.5 MG/3 ML NEB IH SCH (15:00)
[2021-11-04] MEDS: Pepcid 20 MG VIAL IV SCH ×2 (15:33→21:31)
[2021-11-04] MEDS: SODIUM CHLORIDE 0.9% IV SCH ×2 (15:34→21:35)
[2021-11-04] MEDS: Klor Con 10 MEQ PO SCH (15:34)
[2021-11-04] MEDS: ZOVIRAX IV SCH ×2 (15:34→21:35)
[2021-11-04] MEDS: DUONEB 0.5-3 MG/3 ml Neb IH SCH ×2 (16:08→20:14)
[2021-11-04] MEDS ORDERED: TRIAMCINOLONE ACETONIDE MM SCH (16:30)
[2021-11-04] MEDS ORDERED: [UNRECOGNIZED DRUG - OTHER] MM SCH (16:30)
--- NOTE | 2021-11-04 17:54 | PCM.HP ---
History of Present Illness - Chief Complaint Chief Complaint: abdominal pain epigastric area for 2-3 days History of Present Illness: is a 76 year old female.presents with vomiting episodes yesterday, weakness and fall injury hitting her face at home prior to arrival. She got up this morning to use the restroom and then fell forward. Patient arrives via EMS with a c-collar in place. Patient has a history of coronary artery disease, elevated cholesterol, hypertension and COPD. Patient lives alone. - Review of Systems Constitutional: No Fever, No Chills Eyes: No Symptoms Ears, Nose, & Throat: No Symptoms Respiratory: No Cough, No Short Of Breath Cardiac: No Chest Pain, No Edema, No Syncope Abdominal/Gastrointestinal: Abdominal Pain, Hematemesis, Hematochezia, No Nausea, No Vomiting, No Diarrhea Genitourinary Symptoms: No Dysuria Musculoskeletal: No Back Pain, No Neck Pain Skin: No Rash Neurological: No Dizziness, No Focal Weakness, No Sensory Changes Psychological: No Symptoms Endocrine: No Symptoms Hematologic/Lymphatic: No Symptoms Immunological/Allergic: No Symptoms Medications & Allergies Home Medications: Home Medication List Albuterol 2.5 mg/3 ml Neb [Proventil 2.5 mg/3 ml Neb] 2.5 mg IH QID 08/06/20 [History Confirmed 11/04/21] Amlodipine Besylate [Norvasc] 2.5 mg PO DAILY 08/06/20 [History Confirmed 11/04/21] Aspirin EC 81 mg [Ecotrin 81 mg] 81 mg PO DAILY 08/06/20 [History Confirmed 11/04/21] Carvedilol [Coreg] 25 mg PO BID 08/06/20 [History Confirmed 11/04/21] Clopidogrel Bisulfate 75 mg [PLAVIX 75 MG Tablet] 75 mg PO DAILY 08/06/20 [History Confirmed 11/04/21] Famotidine 20 mg [Pepcid 20 MG] 20 mg PO BID 08/06/20 [History Confirmed 11/04/21] Furosemide [Lasix] 20 mg PO DAILY 08/06/20 [History Confirmed 11/04/21] Losartan Potassium [Cozaar] 25 mg PO BID 08/06/20 [History Confirmed 11/04/21] Potassium Chloride [Klor-Con] 20 meq PO DAILY 08/06/20 [History Confirmed 11/04/21] Rosuvastatin Calcium [Crestor] 20 mg PO HS 08/06/20 [History Confirmed 11/04/21] Multivitamin [Multiple Vitamins] 1 each PO DAILY 05/23/21 [History Confirmed 11/04/21] Alendronate Sodium 70 mg [Fosamax 70 MG] 70 mg PO WEEKLY 10/16/21 [History Confirmed 11/04/21] Thai/D3/Mag11/Zinc/Fence Machine Operator/Chuy/Bor [Caltrate 600+D Plus Tablet] 1 tablet PO BID 10/16/21 [History Confirmed 11/04/21] Non-Formulary Drug [Non-Formulary Bulk Item] 1 inh IH BID 10/16/21 [History Confirmed 11/04/21] Albuterol/Ipratropium 3ml Neb* [DUONEB 0.5-3 MG/3 ml Neb] 3 ml IH QID #120 each 10/21/21 [Rx Confirmed 11/04/21] Guaifenesin 600 mg ER [Mucinex 600MG ER Tabs] 1,200 mg PO BID tablet 10/27/21 [Rx Confirmed 11/04/21] Prednisone 10 mg [Deltasone 10 mg] 10 mg PO DAILY #5 tablet 10/27/21 [Rx Confirmed 11/04/21] Prednisone 20 mg [Deltasone 20 mg] 20 mg PO DAILY #18 tablet 10/27/21 [Rx Confirmed 11/04/21] Triamcinolone Acetonide [Kenalog in Orabase] 1 gm MM AC 5 Days #5 10/27/21 [Rx Confirmed 11/04/21] Triamcinolone Acetonide [Kenalog in Orabase] 5 gm DT UD PRN #1 10/27/21 [Rx Confirmed 11/04/21] Allergies/Adverse Reactions: Allergies Allergy/AdvReac Type Severity Reaction Status Date / Time iodine Allergy Severe Hives Verified 10/24/21 11:11 - Past Medical History Past Medical History: Yes Neurological History: No Pertinent History ENT History: Cataracts Cardiac History: Coronary Artery Disease, High Cholesterol, Hypertension Respiratory History: COPD, Emphysema, Pneumonia Endocrine Medical History: No Pertinent History Musculoskelatal History: Arthritis, Osteoarthritis GI Medical History: GERD, Polyps History: No Pertinent History Pyscho-Social History: No Pertinent History Reproductive Disorders: No Pertinent History - Female History Are you now?: No - Past Surgical History Past Surgical History: Yes Neuro Surgical History: No Pertinent History Cardiac History: CABG Respiratory Surgery: No Pertinent History GI Surgical History: Appendectomy, Cholecystectomy Genitourinary Surgical Hx: No Pertinent History Musculskeletal Surgical Hx: Orthopedic Surgery Female Surgical History: Hysterectomy, Tubal Ligation Other Surgical History: 2 screws in lower back,carpal tunnel release to right wrist - Social History Smoking Status: Former smoker Exposure to second hand smoke: No Alcohol: None Drug Use: none - Physical Exam Vital Signs: Vital Signs - 24 hr Temp Pulse Resp BP Pulse Ox 11/04/21 16:09 76 20 100 11/04/21 16:00 96.7 F 69 18 112/54 100 11/04/21 11:47 98.6 F 76 21 98/57 100 11/04/21 10:15 98.6 F 76 21 98/57 100 11/04/21 10:00 98.6 F 67 20 102/57 100 11/04/21 09:45 98.6 F 70 21 108/58 100 11/04/21 09:00 70 19 103/51 99 11/04/21 08:08 72 26 H 99/61 98 11/04/21 07:35 70 18 92/51 99 11/04/21 06:00 65 16 94/57 98 11/04/21 04:45 64 16 100/53 98 11/04/21 04:03 98 11/04/21 03:41 99.1 F 70 18 93/55 99 General Appearance: no apparent distress, alert Neurologic Exam: alert, oriented x 3, cooperative, normal mood/affect, nml cerebellar function, nml station & gait, sensation nml, No motor deficits Eye Exam: PERRL/EOMI, eyes nml inspection Ears, Nose, Throat Exam: normal ENT inspection, TMs normal, pharynx normal, moist mucous membranes Neck Exam: normal inspection, non-tender, supple, full range of motion Respiratory Exam: normal breath sounds, lungs clear, No respiratory distress Cardiovascular Exam: regular rate/rhythm, normal heart sounds, normal peripheral pulses Gastrointestinal/Abdomen Exam: soft, normal bowel sounds, tenderness (epigastric tenderness), No mass Back Exam: normal inspection, normal range of motion, No CVA tenderness, No vertebral tenderness Extremity Exam: normal inspection, normal range of motion, pelvis stable Skin Exam: normal color, warm, dry, No rash Lymphatic Exam: No adenopathy Results - Labs Lab/Micro Results: Lab Results-Last 24 Hours 11/04/21 11/04/21 11/04/21 Range/Units 04:28 04:28 04:28 WBC 10.9 H (4.0-10.5) K/mm3 RBC 1.83 L (4.1-5.4) M/mm3 Hgb 6.1 L* (12.0-16.0) gm/dl Hct 18.9 L (35-47) % MCV 103.3 H (78-100) fl MCH 33.3 H (26-32) pg MCHC 32.3 (32-36) g/dl RDW 13.7 (11.5-14.0) % Plt Count 162 (150-450) K/mm3 MPV 8.9 (7.5-11.0) fl Gran % 68.7 H (36.0-66.0) % Eos # (Auto) 0.10 (0-0.5) Absolute Lymphs (auto) 2.44 (1.0-4.6) Absolute Monos (auto) 0.86 (0.0-1.3) Lymphocytes % 22.4 L (24.0-44.0) % Monocytes % 7.9 (0.0-12.0) % Eosinophils % 0.9 (0.00-5.0) % Basophils % 0.1 (0.0-0.4) % Absolute Granulocytes 7.47 H (1.4-6.9) Basophils # 0.01 (0-0.4) Sodium 130 L (137-145) mmol/L Potassium 4.1 (3.5-5.1) mmol/L Chloride 102 (98-107) mmol/L Carbon Dioxide 26 (22-30) mmol/L Anion Gap 6.7 (5-15) MEQ/L BUN 65 H (7-17) mg/dL Creatinine 0.89 (0.52-1.04) mg/dL Estimated GFR > 60.0 ML/MIN Glucose 91 (74-106) mg/dL Calcium 7.9 L (8.4-10.2) mg/dL Total Bilirubin 0.60 (0.2-1.3) mg/dL AST 18 (14-36) U/L ALT 13 (0-35) U/L Alkaline Phosphatase 28 L (38-126) U/L Troponin I < 0.012 (0.000-0.034) ng/mL Serum Total Protein 4.1 L (6.3-8.2) g/dL Albumin 2.3 L (3.5-5.0) g/dL Urine Color (YELLOW) Urine Appearance (CLEAR) Urine pH (5-6) Ur Specific [place] (1.005-1.025) Urine Protein (Negative) Urine Ketones (NEGATIVE) Urine Blood (0-5) Estuardo/ul Urine Nitrite (NEGATIVE) Urine Bilirubin (NEGATIVE) Urine Urobilinogen (0-1) mg/dL Ur Leukocyte Esterase (NEGATIVE) Urine WBC (Auto) (0-5) /HPF Urine RBC (Auto) (0-2) /HPF U Epithel Cells (Auto) (FEW) /HPF Urine Bacteria (Auto) (NEGATIVE) /HPF Urine Culture Reflexed (NO) Urine Glucose (NEGATIVE) mg/dL Influenza Type A Ag (NEGATIVE) Influenza Type B Ag (NEGATIVE) RSV (PCR) (Negative) SARS-CoV-2 (PCR) (NEGATIVE) ABO Group Rh Factor Antibody Screen (NEGATIVE) Crossmatch (COMPATIBLE) 11/04/21 11/04/21 11/04/21 Range/Units 04:54 05:02 07:33 WBC (4.0-10.5) K/mm3 RBC (4.1-5.4) M/mm3 Hgb (12.0-16.0) gm/dl Hct (35-47) % MCV (78-100) fl MCH (26-32) pg MCHC (32-36) g/dl RDW (11.5-14.0) % Plt Count (150-450) K/mm3 MPV (7.5-11.0) fl Gran % (36.0-66.0) % Eos # (Auto) (0-0.5) Absolute Lymphs (auto) (1.0-4.6) Absolute Monos (auto) (0.0-1.3) Lymphocytes % (24.0-44.0) % Monocytes % (0.0-12.0) % Eosinophils % (0.00-5.0) % Basophils % (0.0-0.4) % Absolute Granulocytes (1.4-6.9) Basophils # (0-0.4) Sodium (137-145) mmol/L Potassium (3.5-5.1) mmol/L Chloride (98-107) mmol/L Carbon Dioxide (22-30) mmol/L Anion Gap (5-15) MEQ/L BUN (7-17) mg/dL Creatinine (0.52-1.04) mg/dL Estimated GFR ML/MIN Glucose (74-106) mg/dL Calcium (8.4-10.2) mg/dL Total Bilirubin (0.2-1.3) mg/dL AST (14-36) U/L ALT (0-35) U/L Alkaline Phosphatase (38-126) U/L Troponin I < 0.012 (0.000-0.034) ng/mL Serum Total Protein (6.3-8.2) g/dL Albumin (3.5-5.0) g/dL Urine Color (YELLOW) Urine Appearance (CLEAR) Urine pH (5-6) Ur Specific [place] (1.005-1.025) Urine Protein (Negative) Urine Ketones (NEGATIVE) Urine Blood (0-5) Estuardo/ul Urine Nitrite (NEGATIVE) Urine Bilirubin (NEGATIVE) Urine Urobilinogen (0-1) mg/dL Ur Leukocyte Esterase (NEGATIVE) Urine WBC (Auto) (0-5) /HPF Urine RBC (Auto) (0-2) /HPF U Epithel Cells (Auto) (FEW) /HPF Urine Bacteria (Auto) (NEGATIVE) /HPF Urine Culture Reflexed (NO) Urine Glucose (NEGATIVE) mg/dL Influenza Type A Ag (NEGATIVE) Influenza Type B Ag (NEGATIVE) RSV (PCR) (Negative) SARS-CoV-2 (PCR) (NEGATIVE) ABO Group O Rh Factor POSITIVE Antibody Screen NEGATIVE (NEGATIVE) Crossmatch COMPATIBLE COMPATIBLE (COMPATIBLE) 11/04/21 11/04/21 11/04/21 Range/Units 07:33 10:25 10:31 WBC (4.0-10.5) K/mm3 RBC (4.1-5.4) M/mm3 Hgb (12.0-16.0) gm/dl Hct (35-47) % MCV (78-100) fl MCH (26-32) pg MCHC (32-36) g/dl RDW (11.5-14.0) % Plt Count (150-450) K/mm3 MPV (7.5-11.0) fl Gran % (36.0-66.0) % Eos # (Auto) (0-0.5) Absolute Lymphs (auto) (1.0-4.6) Absolute Monos (auto) (0.0-1.3) Lymphocytes % (24.0-44.0) % Monocytes % (0.0-12.0) % Eosinophils % (0.00-5.0) % Basophils % (0.0-0.4) % Absolute Granulocytes (1.4-6.9) Basophils # (0-0.4) Sodium (137-145) mmol/L Potassium (3.5-5.1) mmol/L Chloride (98-107) mmol/L Carbon Dioxide (22-30) mmol/L Anion Gap (5-15) MEQ/L BUN (7-17) mg/dL Creatinine (0.52-1.04) mg/dL Estimated GFR ML/MIN Glucose (74-106) mg/dL Calcium (8.4-10.2) mg/dL Total Bilirubin (0.2-1.3) mg/dL AST (14-36) U/L ALT (0-35) U/L Alkaline Phosphatase (38-126) U/L Troponin I < 0.012 (0.000-0.034) ng/mL Serum Total Protein (6.3-8.2) g/dL Albumin (3.5-5.0) g/dL Urine Color YELLOW (YELLOW) Urine Appearance CLEAR (CLEAR) Urine pH 5.0 (5-6) Ur Specific [place] 1.016 (1.005-1.025) Urine Protein NEGATIVE (Negative) Urine Ketones NEGATIVE (NEGATIVE) Urine Blood NEGATIVE (0-5) Estuardo/ul Urine Nitrite NEGATIVE (NEGATIVE) Urine Bilirubin NEGATIVE (NEGATIVE) Urine Urobilinogen NEGATIVE (0-1) mg/dL Ur Leukocyte Esterase NEGATIVE (NEGATIVE) Urine WBC (Auto) 0-2 (0-5) /HPF Urine RBC (Auto) 0-2 (0-2) /HPF U Epithel Cells (Auto) FEW (FEW) /HPF Urine Bacteria (Auto) FEW (NEGATIVE) /HPF Urine Culture Reflexed NO (NO) Urine Glucose NEGATIVE (NEGATIVE) mg/dL Influenza Type A Ag NEGATIVE (NEGATIVE) Influenza Type B Ag NEGATIVE (NEGATIVE) RSV (PCR) NEGATIVE (Negative) SARS-CoV-2 (PCR) NEGATIVE (NEGATIVE) ABO Group Rh Factor Antibody Screen (NEGATIVE) Crossmatch (COMPATIBLE) 11/04/21 Range/Units 13:31 WBC (4.0-10.5) K/mm3 RBC (4.1-5.4) M/mm3 Hgb (12.0-16.0) gm/dl Hct (35-47) % MCV (78-100) fl MCH (26-32) pg MCHC (32-36) g/dl RDW (11.5-14.0) % Plt Count (150-450) K/mm3 MPV (7.5-11.0) fl Gran % (36.0-66.0) % Eos # (Auto) (0-0.5) Absolute Lymphs (auto) (1.0-4.6) Absolute Monos (auto) (0.0-1.3) Lymphocytes % (24.0-44.0) % Monocytes % (0.0-12.0) % Eosinophils % (0.00-5.0) % Basophils % (0.0-0.4) % Absolute Granulocytes (1.4-6.9) Basophils # (0-0.4) Sodium (137-145) mmol/L Potassium (3.5-5.1) mmol/L Chloride (98-107) mmol/L Carbon Dioxide (22-30) mmol/L Anion Gap (5-15) MEQ/L BUN (7-17) mg/dL Creatinine (0.52-1.04) mg/dL Estimated GFR ML/MIN Glucose (74-106) mg/dL Calcium (8.4-10.2) mg/dL Total Bilirubin (0.2-1.3) mg/dL AST (14-36) U/L ALT (0-35) U/L Alkaline Phosphatase (38-126) U/L Troponin I < 0.012 (0.000-0.034) ng/mL Serum Total Protein (6.3-8.2) g/dL Albumin (3.5-5.0) g/dL Urine Color (YELLOW) Urine Appearance (CLEAR) Urine pH (5-6) Ur Specific [place] (1.005-1.025) Urine Protein (Negative) Urine Ketones (NEGATIVE) Urine Blood (0-5) Estuardo/ul Urine Nitrite (NEGATIVE) Urine Bilirubin (NEGATIVE) Urine Urobilinogen (0-1) mg/dL Ur Leukocyte Esterase (NEGATIVE) Urine WBC (Auto) (0-5) /HPF Urine RBC (Auto) (0-2) /HPF U Epithel Cells (Auto) (FEW) /HPF Urine Bacteria (Auto) (NEGATIVE) /HPF Urine Culture Reflexed (NO) Urine Glucose (NEGATIVE) mg/dL Influenza Type A Ag (NEGATIVE) Influenza Type B Ag (NEGATIVE) RSV (PCR) (Negative) SARS-CoV-2 (PCR) (NEGATIVE) ABO Group Rh Factor Antibody Screen (NEGATIVE) Crossmatch (COMPATIBLE) - Radiology Impressions Radiology Exams & Impressions: Radiology Procedures Category Date Time Status CERVICAL SPINE WO CONTRAST [CT] Stat Exams 11/04/21 04:04 Completed FACIAL BONES WO CONTRAST [CT] Stat Exams 11/04/21 04:04 Completed HEAD WITHOUT CONTRAST [CT] Stat Exams 11/04/21 04:04 Completed - Other Procedures and Tests Respiratory Therapy 11/04/21 16:09 Oxygen NASAL CANNULA 2 lpm 11/05/21 07:00 Respiratory Therapy Assessment DAILY Assessment/Plan (1) Hematochezia Current Visit: Yes Status: Acute Assessment & Plan: Chief Complaint Diagnosis Anemia requiring transfusion, GI bleed Allergies Allergy/AdvReac Type Severity Reaction Status Date / Time iodine Allergy Severe Hives Verified 10/24/21 11:11 Vital Signs (Last 24 hours) Temp Pulse Resp BP Pulse Ox 11/04/21 16:09 76 20 100 11/04/21 16:00 96.7 F 69 18 112/54 100 11/04/21 11:47 98.6 F 76 21 98/57 100 11/04/21 10:15 98.6 F 76 21 98/57 100 11/04/21 10:00 98.6 F 67 20 102/57 100 11/04/21 09:45 98.6 F 70 21 108/58 100 11/04/21 09:00 70 19 103/51 99 11/04/21 08:08 72 26 H 99/61 98 11/04/21 07:35 70 18 92/51 99 11/04/21 06:00 65 16 94/57 98 11/04/21 04:45 64 16 100/53 98 11/04/21 04:03 98 11/04/21 03:41 99.1 F 70 18 93/55 99 Current Medications Generic Name Dose Route Start Last Admin Trade Name Freq PRN Reason Stop Dose Admin Albuterol Sulfate 2.5 mg 11/04/21 15:00 Albuterol Sulfate 2.5 Mg/3 Ml [facility] 12/04/21 14:59 QIDRT MICKY Albuterol/Ipratropium 3 ml 11/04/21 15:00 11/04/21 16:08 Ipratropium/Albuterol Sulfate 3 Ml [facility] 12/04/21 14:59 3 ml QIDRT [facility] Administration Alendronate Sodium 70 mg 11/06/21 06:00 Alendronate Sodium 70 Mg Tablet PO 12/06/21 05:59 WEEKLY [facility] Amlodipine Besylate 2.5 mg 11/04/21 13:00 11/04/21 14:36 Amlodipine Besylate 5 Mg Tablet PO 12/04/21 12:59 Not Given DAILY [facility] Calcium Carbonate 1 tab 11/04/21 22:00 Calcium Carbonate 500 Mg/Vitamin D 1 Tab Tablet PO 12/04/21 21:59 BID [facility] Carvedilol 25 mg 11/04/21 13:00 11/04/21 14:35 Carvedilol 12.5 Mg Tablet PO 12/04/21 12:59 Not Given BID [facility] Famotidine 20 mg 11/04/21 13:00 11/04/21 15:33 Famotidine 20 Mg/1 Vial IV 12/04/21 12:59 20 mg Q12HT MICKY Administration Furosemide 20 mg 11/04/21 13:00 Furosemide 20 Mg Tablet PO 12/04/21 12:59 DAILY PRN PRN NEEDED FOR WATER GAIN Guaifenesin 1,200 mg 11/04/21 22:00 Guaifenesin 600 Mg Tablet Er PO 12/04/21 21:59 BID MICKY Sodium Chloride 1,000 mls @ 0 mls/hr 11/04/21 11:08 11/04/21 12:35 Sodium Chloride 0.9% 1000 Ml IV 12/04/21 11:07 20 mls/hr .Q0M MICKY Administration KVO Acyclovir Sodium 500 mg/ 100 mls @ 100 mls/hr 11/04/21 12:15 11/04/21 15:34 Sodium Chloride IV 12/04/21 12:14 100 mls/hr Q12HT MICKY Administration Pantoprazole Sodium 80 mg/ 500 mls @ 50 mls/hr 11/04/21 13:00 11/04/21 13:04 Sodium Chloride IV 12/04/21 12:59 50 ml/hr .Q10H MICKY 50 mls/hr Administration Losartan Potassium 25 mg 11/04/21 13:00 11/04/21 14:35 Losartan Potassium 50 Mg Tablet PO 12/04/21 12:59 Not Given BID MICKY Multivitamins Therapeutic 1 tab 11/05/21 10:00 Multivitamins,Therapeutic 1 Tab Tab PO 12/05/21 09:59 DAILY MICKY Potassium Chloride 20 meq 11/04/21 13:00 11/04/21 15:34 Potassium Chloride 10 Meq Tablet PO 12/04/21 12:59 20 meq DAILY MICKY Administration Prednisone 10 mg 11/04/21 13:00 11/04/21 14:36 Prednisone 10 Mg Tablet PO 12/04/21 12:59 Not Given DAILY MICKY Fluticasone/Salmeterol 2 puff 11/04/21 19:00 Fluticasone/Salmeterol 115/21 - 120 Puff Common Canister IH 12/04/21 18:59 BIDRT MICKY Simvastatin 40 mg 11/04/21 22:00 Simvastatin 20 Mg Tablet PO 12/04/21 21:59 HS MICKY Discontinued Medications Generic Name Dose Route Start Last Admin Trade Name Freq PRN Reason Stop Dose Admin Acetaminophen 650 mg 11/04/21 11:08 11/04/21 12:32 Acetaminophen 325 Mg Tablet PO 11/04/21 11:09 650 mg PRIOR TO BLOOD ONE Administration Diphenhydramine HCl 25 mg 11/04/21 11:08 11/04/21 12:32 Diphenhydramine Hcl 25 Mg Capsule PO 11/04/21 11:09 25 mg PRIOR TO BLOOD ONE Administration Sodium Chloride 1,000 mls @ 200 mls/hr 11/04/21 04:15 11/04/21 10:44 Sodium Chloride 0.9% 1000 Ml IV 12/04/21 04:14 Infused .Q5H MICKY Infusion Sodium Chloride Confirm 11/04/21 04:30 Sodium Chloride 0.9% 1000 Ml Administered 11/04/21 04:31 Dose 1,000 mls @ ud .ROUTE .STK-MED ONE Sodium Chloride Confirm 11/04/21 07:44 Sodium Chloride 0.9% 1000 Ml Administered 11/04/21 07:45 Dose 1,000 mls @ ud .ROUTE .STK-MED ONE Lidocaine HCl Confirm 11/04/21 07:03 Lidocaine Hcl 2% 20 Ml Mdv Administered 11/04/21 07:04 Dose 5 ml .ROUTE .STK-MED ONE Non-Formulary Medication 1 gm 11/04/21 16:30 Triamcinolone Acetonide [Kenalog In Orabase] MM 12/04/21 16:29 AC MICKY Non-Formulary Medication 5 gm 11/04/21 12:14 Triamcinolone Acetonide [Kenalog In Orabase] DT UD PRN PAIN Pantoprazole Sodium 40 mg 11/04/21 04:56 11/04/21 05:09 Pantoprazole 40 Mg Vial IV 11/04/21 04:57 40 mg STAT ONE Administration Pantoprazole Sodium Confirm 11/04/21 05:08 Pantoprazole 40 Mg Vial Administered 11/04/21 05:09 Dose 40 mg IV .STK-MED ONE Intake & Output (Last 24 hours) 11/02/21 11/03/21 11/04/21 11/05/21 11:59 11:59 11:59 11:59 Intake Total 60 Output Total 400 Balance -400 60 Weight 65.499 kg Laboratory Results (Last 24 hours) 11/04/21 11/04/21 11/04/21 13:31 10:31 10:25 WBC RBC Hgb Hct MCV MCH MCHC RDW Plt Count MPV Gran % Eos # (Auto) Absolute Lymphs (auto) Absolute Monos (auto) Lymphocytes % Monocytes % Eosinophils % Basophils % Absolute Granulocytes Basophils # Sodium Potassium Chloride Carbon Dioxide Anion Gap BUN Creatinine Estimated GFR Glucose Calcium Total Bilirubin AST ALT Alkaline Phosphatase Troponin I < 0.012 < 0.012 Serum Total Protein Albumin Urine Color YELLOW Urine Appearance CLEAR Urine pH 5.0 Ur Specific [place] 1.016 Urine Protein NEGATIVE Urine Ketones NEGATIVE Urine Blood NEGATIVE Urine Nitrite NEGATIVE Urine Bilirubin NEGATIVE Urine Urobilinogen NEGATIVE Ur Leukocyte Esterase NEGATIVE Urine WBC (Auto) 0-2 Urine RBC (Auto) 0-2 U Epithel Cells (Auto) FEW Urine Bacteria (Auto) FEW Urine Culture Reflexed NO Urine Glucose NEGATIVE Influenza Type A Ag Influenza Type B Ag RSV (PCR) SARS-CoV-2 (PCR) ABO Group Rh Factor Antibody Screen Crossmatch 11/04/21 11/04/21 11/04/21 07:33 07:33 05:02 WBC RBC Hgb Hct MCV MCH MCHC RDW Plt Count MPV Gran % Eos # (Auto) Absolute Lymphs (auto) Absolute Monos (auto) Lymphocytes % Monocytes % Eosinophils % Basophils % Absolute Granulocytes Basophils # Sodium Potassium Chloride Carbon Dioxide Anion Gap BUN Creatinine Estimated GFR Glucose Calcium Total Bilirubin AST ALT Alkaline Phosphatase Troponin I < 0.012 Serum Total Protein Albumin Urine Color Urine Appearance Urine pH Ur Specific [place] Urine Protein Urine Ketones Urine Blood Urine Nitrite Urine Bilirubin Urine Urobilinogen Ur Leukocyte Esterase Urine WBC (Auto) Urine RBC (Auto) U Epithel Cells (Auto) Urine Bacteria (Auto) Urine Culture Reflexed Urine Glucose Influenza Type A Ag NEGATIVE Influenza Type B Ag NEGATIVE RSV (PCR) NEGATIVE SARS-CoV-2 (PCR) NEGATIVE ABO Group Rh Factor Antibody Screen Crossmatch COMPATIBLE 11/04/21 11/04/21 11/04/21 04:54 04:28 04:28 WBC RBC Hgb Hct MCV MCH MCHC RDW Plt Count MPV Gran % Eos # (Auto) Absolute Lymphs (auto) Absolute Monos (auto) Lymphocytes % Monocytes % Eosinophils % Basophils % Absolute Granulocytes Basophils # Sodium 130 L Potassium 4.1 Chloride 102 Carbon Dioxide 26 Anion Gap 6.7 BUN 65 H Creatinine 0.89 Estimated GFR > 60.0 Glucose 91 Calcium 7.9 L Total Bilirubin 0.60 AST 18 ALT 13 Alkaline Phosphatase 28 L Troponin I < 0.012 Serum Total Protein 4.1 L Albumin 2.3 L Urine Color Urine Appearance Urine pH Ur Specific [place] Urine Protein Urine Ketones Urine Blood Urine Nitrite Urine Bilirubin Urine Urobilinogen Ur Leukocyte Esterase Urine WBC (Auto) Urine RBC (Auto) U Epithel Cells (Auto) Urine Bacteria (Auto) Urine Culture Reflexed Urine Glucose Influenza Type A Ag Influenza Type B Ag RSV (PCR) SARS-CoV-2 (PCR) ABO Group O Rh Factor POSITIVE Antibody Screen NEGATIVE Crossmatch COMPATIBLE 11/04/21 04:28 WBC 10.9 H RBC 1.83 L Hgb 6.1 L* Hct 18.9 L MCV 103.3 H MCH 33.3 H MCHC 32.3 RDW 13.7 Plt Count 162 MPV 8.9 Gran % 68.7 H Eos # (Auto) 0.10 Absolute Lymphs (auto) 2.44 Absolute Monos (auto) 0.86 Lymphocytes % 22.4 L Monocytes % 7.9 Eosinophils % 0.9 Basophils % 0.1 Absolute Granulocytes 7.47 H Basophils # 0.01 Sodium Potassium Chloride Carbon Dioxide Anion Gap BUN Creatinine Estimated GFR Glucose Calcium Total Bilirubin AST ALT Alkaline Phosphatase Troponin I Serum Total Protein Albumin Urine Color Urine Appearance Urine pH Ur Specific [place] Urine Protein Urine Ketones Urine Blood Urine Nitrite Urine Bilirubin Urine Urobilinogen Ur Leukocyte Esterase Urine WBC (Auto) Urine RBC (Auto) U Epithel Cells (Auto) Urine Bacteria (Auto) Urine Culture Reflexed Urine Glucose Influenza Type A Ag Influenza Type B Ag RSV (PCR) SARS-CoV-2 (PCR) ABO Group Rh Factor Antibody Screen Crossmatch Orders (Last 24 hours) Category Date Time Status Bedrest ROUTINE Activity 11/04/21 11:08 Active Admit as Inpatient ROUTINE Care 11/04/21 11:00 Active Paint Coating Machine Operator STAT Care 11/04/21 04:03 Completed Code Status Order ROUTINE Care 11/04/21 11:08 Active Consent,Obtain ROUTINE Care 11/04/21 11:08 Active Consent,Obtain ROUTINE Care 11/04/21 14:32 Active EKG-ER Only STAT Care 11/04/21 04:03 Completed Onofre [Catheter-Fenton Onofre] STAT Care 11/04/21 10:25 Completed H&H 1 Hr Post Transfusion 1 HR POST TRANSFUS Care 11/04/21 11:08 Active IV Care Q6H Care 11/04/21 11:08 Active Pulse Oximetry (ED) STAT Care 11/04/21 04:03 Completed Consult Surgery ROUTINE Cons 11/04/21 13:19 Completed Heart-Healthy Diet Diet 11/04/21 Breakfast Active NPO Diet 11/05/21 00:01 Active CERVICAL SPINE WO CONTRAST [CT] Stat Exams 11/04/21 04:04 Completed FACIAL BONES WO CONTRAST [CT] Stat Exams 11/04/21 04:04 Completed HEAD WITHOUT CONTRAST [CT] Stat Exams 11/04/21 04:04 Completed BLOOD COMPONENT REQUEST Stat Lab 11/04/21 04:54 Completed CBC W DIFF Stat Lab 11/04/21 04:28 Completed CMP Stat Lab 11/04/21 04:28 Completed HEMOGLOBIN AND HEMATOCRIT Urgent Lab 11/04/21 17:15 Ordered TROPONIN Q3H Lab 11/04/21 04:28 Completed TROPONIN Q3H Lab 11/04/21 07:33 Completed TROPONIN Q3H Lab 11/04/21 10:31 Completed TROPONIN Q3H Lab 11/04/21 13:31 Completed TROPONIN Q3H Lab 11/04/21 16:15 Ordered TYPE AND SCREEN Stat Lab 11/04/21 04:54 Completed UA W/RFX UR CULTURE Stat Lab 11/04/21 10:25 Completed Acetaminophen 325 mg [Tylenol 325 mg] Med 11/04/21 11:08 Discontinued 650 mg PO PRIOR TO BLOOD ONE Acyclovir Sodium Inj [Zovirax INJ] 500 mg Med 11/04/21 12:15 Active NaCl 0.9% 100Ml [Sodium Chloride 0.9% 100 ML BAG] 100 ml IV Q12HT Albuterol 2.5 mg/3 ml Neb [Proventil 2.5 mg/3 ml Neb Med 11/04/21 15:00 Active ] 2.5 mg IH QIDRT Albuterol/Ipratropium 3ml Neb* [DUONEB 0.5-3 MG/3 ml Med 11/04/21 15:00 Active Neb] 3 ml IH QIDRT Alendronate Sodium 70 mg [Fosamax 70 MG] Med 11/06/21 06:00 Active 70 mg PO WEEKLY Amlodipine Besylate 5 mg [Norvasc 5 mg] Med 11/04/21 13:00 Active 2.5 mg PO DAILY Calcium Carb/Vitamin D 500 mg* [Calcium 500MG W/Vit D Med 11/04/21 22:00 Active Tablet] 1 tab PO BID Carvedilol 12.5 mg [Coreg 12.5 mg] Med 11/04/21 13:00 Active 25 mg PO BID Diphenhydramine HCl 25 mg [Benadryl 25 mg Capsule Med 11/04/21 11:08 Discontinued ] 25 mg PO PRIOR TO BLOOD ONE Famotidine 20 mg Vial [Pepcid 20 MG VIAL] Med 11/04/21 13:00 Active 20 mg IV Q12HT Fluticasone/Salmeterol 115/ [Advair Hfa 115/21 Common Med 11/04/21 19:00 Active canister*] 2 puff IH BIDRT Furosemide 20 mg [Lasix 20 mg] Med 11/04/21 13:00 Active 20 mg PO DAILY PRN PRN Guaifenesin 600 mg ER [Mucinex 600MG ER Tabs] Med 11/04/21 22:00 Active 1,200 mg PO BID Lidocaine HCl 2% 20 ml Mdv [Xylocaine 2% HCl 20 ml Med 11/04/21 07:03 Discontinued Mdv] 5 ml .ROUTE .STK-MED ONE Losartan Potassium 50 mg [Cozaar 50 MG] Med 11/04/21 13:00 Active 25 mg PO BID Multivitamins,Therapeutic Tab* [Theragran Multivitamin* Med 11/05/21 10:00 Active ] 1 tab PO DAILY NaCl 0.9% 1000 ml [Sodium Chloride 0.9% 1000 ML] 1,000 Med 11/04/21 04:30 Discontinued ml .ROUTE UD NaCl 0.9% 1000 ml [Sodium Chloride 0.9% 1000 ML] 1,000 Med 11/04/21 07:44 Discontinued ml .ROUTE UD NaCl 0.9% 1000 ml [Sodium Chloride 0.9% 1000 ML] 1,000 Med 11/04/21 04:15 Discontinued ml IV 200 mls/hr NaCl 0.9% 1000 ml [Sodium Chloride 0.9% 1000 ML] 1,000 Med 11/04/21 11:08 Active ml IV KVO NaCl 0.9% 500 ml [Sodium Chloride 0.9% 500 ML] 500 ml Med 11/04/21 13:00 Active Pantoprazole 40 mg [Protonix 40 mg IV] 80 mg IV 50 mls/hr Pantoprazole 40 mg [Protonix 40 mg IV] Med 11/04/21 05:08 Discontinued 40 mg IV .STK-MED ONE Pantoprazole 40 mg [Protonix 40 mg IV] Med 11/04/21 04:56 Discontinued 40 mg IV STAT ONE Potassium Chloride 10 Meq Tab* [Klor Con 10 MEQ] Med 11/04/21 13:00 Active 20 meq PO DAILY Prednisone 10 mg [Deltasone 10 mg] Med 11/04/21 13:00 Active 10 mg PO DAILY Simvastatin 20Mg [Zocor 20Mg] Med 11/04/21 22:00 Active 40 mg PO HS Triamcinolone Acetonide [Kenalog in Orabase] Med 11/04/21 16:30 Discontinued 1 gm MM AC Triamcinolone Acetonide [Kenalog in Orabase] Med 11/04/21 12:14 Discontinued 5 gm DT UD PRN Oxygen NASAL CANNULA 2 lpm RT 11/04/21 16:09 Active Pulse Oximetry ROUTINE RT 11/04/21 16:09 Active Respiratory Therapy Assessment DAILY RT 11/05/21 07:00 Active Transfer Order Routine Transfer 11/04/21 Completed Patient Care Notes (Last 24 hours) 11/04/21 16:35 (created 11/04/21 16:38) Nursing Note by Geraldine Aguilar is here rounding on patient now. Initialized on 11/04/21 16:38 - END OF NOTE 11/04/21 14:36 Nursing Note by Georgiana Llamas SPOKE WITH DR FLORES ABOUT PATIENT SURGERY CONSULT. SHE WILL HAVE AN EGD DONE AT SOME POINT TOMORROW, WILL NOT DO COLONOSCOPY BECAUSE AT THIS TIME THE PATIENT WOULD NOT TOLERATE BOWEL PREP. NPO AT MIDNIGHT AND WILL OBTAIN CONSENT FOR PROCEDURE Initialized on 11/04/21 14:36 - END OF NOTE 11/04/21 13:25 Nursing Note by Geraldine Aguilar I called consult to 's office. Code(s): K92.1 - MELENA (2) Anemia Current Visit: Yes Status: Acute Qualifiers: Anemia type: iron deficiency Iron deficiency anemia type: chronic blood loss Qualified Code(s): D50.0 - Iron deficiency anemia secondary to blood loss (chronic) Code(s): D64.9 - ANEMIA, UNSPECIFIED (3) Symptomatic anemia Current Visit: Yes Status: Acute Code(s): D64.9 - ANEMIA, UNSPECIFIED
[2021-11-04 18:08] LABS: Hematocrit 25.3 % (35-47); Hemoglobin 8.3 gm/dl (12.0-16.0)
[2021-11-04] MEDS: Advair Hfa 115/21 Common canister IH SCH (20:17)
[2021-11-04] MEDS: Mucinex 600MG ER Tabs PO SCH (21:31)
[2021-11-04] MEDS: Calcium 500MG W/Vit D Tablet PO SCH (21:32)
[2021-11-04] MEDS: ZOCOR 20MG PO SCH (21:33)
[2021-11-04] MEDS ORDERED: [UNRECOGNIZED DRUG - OTHER] IH SCH (22:00)
[2021-11-04] MEDS ORDERED: BOR PO SCH (22:00)
[2021-11-04] MEDS ORDERED: [UNRECOGNIZED DRUG - OTHER] PO SCH (22:00)
[2021-11-04] MEDS ORDERED: MANG PO SCH (22:00)
[2021-11-04] MEDS ORDERED: D3 PO SCH (22:00)
[2021-11-04] MEDS ORDERED: MAG11 PO SCH (22:00)
[2021-11-04] MEDS ORDERED: NON-FORMULARY ITEM (Losartan Potassium [Cozaar] 25 MG Tablet) PO SCH (22:00)
[2021-11-04] MEDS ORDERED: COP PO SCH (22:00)
[2021-11-04] MEDS ORDERED: NON-FORMULARY ITEM (Rosuvastatin Calcium [Crestor] 20 MG Tablet) PO SCH (22:00)
[2021-11-04] MEDS ORDERED: ZINC PO SCH (22:00)
[2021-11-04] MEDS ORDERED: CAL PO SCH (22:00)
[2021-11-04] MEDS ORDERED: NON-FORMULARY ITEM (Carvedilol [Coreg] 25 MG Tablet) PO SCH (22:00)
[2021-11-05] MEDS ORDERED: Sodium Chloride 0.9% 500 ML 500 ML IV ONE (00:39)
[2021-11-05] MEDS: Zofran 4 MG/2 ML VIAL IV PRN (00:45)
[2021-11-05 02:51] LABS: Hematocrit 19.5 % (35-47)
[2021-11-05 02:56] LABS: Hemoglobin 6.3 gm/dl (12.0-16.0)
[2021-11-05] MEDS ORDERED: TYLENOL 325 MG PO ONE (04:22)
[2021-11-05] MEDS: Sodium Chloride 0.9% 1000 ML 1,000 ML IV SCH ×2 (05:24→18:09)
[2021-11-05 05:26] LABS: CROSS MATCH (PRBC) COMPATIBLE (COMPATIBLE)
[2021-11-05] MEDS: DUONEB 0.5-3 MG/3 ml Neb IH SCH ×4 (07:21→20:18)
[2021-11-05] MEDS: Advair Hfa 115/21 Common canister IH SCH ×2 (07:29→21:34)
--- NOTE | 2021-11-05 08:07 | XRAY ---
Indication: Abdomen pain and vomiting. GI bleed. Multiple contiguous axial images obtained through the abdomen and pelvis without contrast. Comparison: October 15, 2021. Lung bases demonstrates minimal dependent atelectasis with stable right lower lobe calcified granuloma. No infiltrate or effusion. Heart not enlarged. Again L5-S1 fusion hardware produces extreme beam artifact limiting exam. Noncontrasted stomach and bowel loops appear nonobstructed with again incidental small duodenal diverticulum. There is now mild/moderate diffuse scatter colonic fecal debris greatest in the descending and sigmoid with now mild rectal impaction. Urinary bladder demonstrates new Onofre balloon catheter in situ. Again scattered descending/sigmoid diverticulosis, cholecystectomy, and hysterectomy. No free fluid/air. Remaining liver, pancreas, spleen, adrenal glands, kidneys, ureters, and bladder appear unremarkable for noncontrast exam. Again extensive scattered aortoiliac calcifications without AAA. Osseous structures intact again with mild osteopenia and mild degenerative changes throughout the spine. Impression: 1. Again L5-S1 fusion hardware beam artifact. 2. New fecal stasis with rectal impaction. 3. Again incidental duodenal diverticulum, colonic diverticulosis, arteriosclerotic disease, chronic bony findings, and old granulomatous disease. Comment: Preliminary interpretation may by [facility]. No critical discrepancy.
[2021-11-05] MEDS: PROTONIX 40 MG IV*** 80 MG in Sodium Chloride 0.9% 500 ML 500 ML IV SCH ×2 (09:36→20:23)
[2021-11-05] MEDS: Calcium 500MG W/Vit D Tablet PO SCH ×2 (09:46→20:25)
[2021-11-05] MEDS: Cozaar 50 MG PO SCH ×2 (09:47→20:25)
[2021-11-05] MEDS: Klor Con 10 MEQ PO SCH (09:47)
[2021-11-05] MEDS: Mucinex 600MG ER Tabs PO SCH ×2 (09:47→20:25)
[2021-11-05] MEDS: THERAGRAN MULTIVITAMIN PO SCH (09:48)
[2021-11-05] MEDS: NORVASC 5 MG PO SCH (09:48)
[2021-11-05] MEDS: COREG 12.5 MG PO SCH ×2 (09:58→20:25)
[2021-11-05] MEDS ORDERED: NON-FORMULARY ITEM (Multivitamin [Multiple Vitamins] 1 EACH Tablet) PO SCH (10:00)
[2021-11-05] MEDS ORDERED: NON-FORMULARY ITEM (Potassium Chloride [Klor-Con] 20 MEQ Packet) PO SCH (10:00)
[2021-11-05] MEDS ORDERED: NON-FORMULARY ITEM (Amlodipine Besylate [Norvasc] 2.5 MG Tablet) PO SCH (10:00)
[2021-11-05] MEDS: DELTASONE 10 MG PO SCH (10:13)
[2021-11-05] MEDS: ZOVIRAX IV SCH ×2 (10:31→20:33)
[2021-11-05] MEDS: Pepcid 20 MG VIAL IV SCH ×2 (10:31→20:26)
[2021-11-05] MEDS: SODIUM CHLORIDE 0.9% IV SCH ×2 (10:31→20:33)
[2021-11-05] MEDS ORDERED: PHENYLEPHRINE HCL ONE (13:24)
[2021-11-05] MEDS ORDERED: XYLOCAINE 2%/Epi 1:200000 20ML VIAL MPF ONE (13:24)
[2021-11-05] MEDS ORDERED: DIPRIVAN 200 MG/20 ML IV ONE (13:24)
[2021-11-05 15:28] LABS: Hematocrit 33.1 % (35-47); Hemoglobin 10.8 gm/dl (12.0-16.0)
--- NOTE | 2021-11-05 19:32 | XRAY ---
Indication: Central line placement. Preop exam. Comparison: October 24, 2021. Portable chest again hyperinflated and clear with incidental tiny calcified granulomas. 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 New right IJ central venous access catheter with tip projecting over cavoatrial junction. No pneumothorax. Comment: Preliminary interpretation made by [facility]. No discrepancy.
[2021-11-05] MEDS: ZOCOR 20MG PO SCH (20:26)
[2021-11-06] MEDS: Sodium Chloride 0.9% 1000 ML 1,000 ML IV SCH ×2 (01:58→02:43)
[2021-11-06] MEDS ORDERED: PROTONIX 40 MG IV IV ONE (05:21)
[2021-11-06] MEDS: PROTONIX 40 MG IV*** 80 MG in Sodium Chloride 0.9% 500 ML 500 ML IV SCH ×3 (05:23→19:26)
[2021-11-06] MEDS ORDERED: Fosamax 70 MG PO SCH (06:00)
[2021-11-06 06:48] LABS: Absolute Neutrophil Ct (ANC) 9.55 (1.4-6.9); Basophil (Absolute #) 0.01 (0-0.4); Eosinophil % 0.4 % (0.00-5.0); Eosinophil (Absolute #) 0.04 (0-0.5); Hemoglobin 8.2 gm/dl (12.0-16.0); Lymphocyte (Absolute #) 0.88 (1.0-4.6); Lymphocytes % 7.8 % (24.0-44.0); Mean Corpuscular Hemoglobin 32.2 pg (26-32); Mean Corpuscular Hgb Concent. 32.8 g/dl (32-36); Mean Platelet Volume 9.5 fl (7.5-11.0); Monocyte (Absolute #) 0.74 (0.0-1.3); Monocytes % 6.6 % (0.0-12.0); Neutrophil % 85.1 % (36.0-66.0); Platelet Count 66 K/mm3 (150-450); Red Blood Count 2.55 M/mm3 (4.1-5.4); Red Cell Distribution Width 15.2 % (11.5-14.0); White Blood Count 11.2 K/mm3 (4.0-10.5)
[2021-11-06 07:41] LABS: ALBUMIN 1.8 g/dL (3.5-5.0); ALKALINE PHOSPHATASE 39 U/L (38-126); BLOOD UREA NITROGEN 39 mg/dL (7-17); CHLORIDE 114 mmol/L (98-107); Calcium 6.5 mg/dL (8.4-10.2); Carbon Dioxide 22 mmol/L (22-30); Creatinine 1 0.83 mg/dL (0.52-1.04); EST GLOMERULAR FILTRATION RATE > 60.0 ML/MIN; Glucose 101 mg/dL (74-106); Potassium 3.2 mmol/L (3.5-5.1); SGOT/AST 20 U/L (14-36); SGPT/ALT 12 U/L (0-35); SODIUM 138 mmol/L (137-145); Total Protein 3.5 g/dL (6.3-8.2)
[2021-11-06] MEDS: DUONEB 0.5-3 MG/3 ml Neb IH SCH ×4 (08:00→17:33)
[2021-11-06] MEDS: Advair Hfa 115/21 Common canister IH SCH ×2 (08:06→17:33)
[2021-11-06] MEDS ORDERED: Bactroban OINTMENT TP SCH (10:00)
[2021-11-06] MEDS ORDERED: PHARMACY DOSING REQUEST MC ONE (10:20)
[2021-11-06] MEDS: Cozaar 50 MG PO SCH ×2 (11:21→22:21)
[2021-11-06] MEDS: COREG 12.5 MG PO SCH ×2 (11:21→22:22)
[2021-11-06] MEDS: NORVASC 5 MG PO SCH (11:22)
[2021-11-06] MEDS: Klor Con 10 MEQ PO SCH (11:50)
[2021-11-06] MEDS: Pepcid 20 MG VIAL IV SCH ×2 (11:50→22:27)
[2021-11-06] MEDS: Mucinex 600MG ER Tabs PO SCH ×2 (11:50→22:22)
[2021-11-06] MEDS: THERAGRAN MULTIVITAMIN PO SCH (11:50)
[2021-11-06] MEDS: Calcium 500MG W/Vit D Tablet PO SCH ×2 (11:51→22:20)
[2021-11-06] MEDS: MARY'S MAGIC MOUTHWASH PO SCH ×4 (11:51→22:22)
[2021-11-06] MEDS: Dextrose 5%-NS IV Solution 1000 ML 1,000 ML IV SCH (11:53)
[2021-11-06] MEDS: ZOVIRAX IV SCH ×2 (12:00→22:20)
[2021-11-06] MEDS: SODIUM CHLORIDE 0.9% IV SCH ×2 (12:00→22:20)
[2021-11-06] MEDS: Hydromorphone 1 mg/ml Injection IV PRN ×2 (12:15→18:39)
[2021-11-06] MEDS: Bactroban OINTMENT TP SCH ×3 (12:20→22:23)
[2021-11-06 13:27] LABS: Slide Review 1 YES
[2021-11-06] MEDS: ZOCOR 20MG PO SCH (22:20)
[2021-11-07] MEDS: ZOVIRAX IV SCH ×3 (05:35→21:54)
[2021-11-07] MEDS: SODIUM CHLORIDE 0.9% IV SCH ×3 (05:35→21:54)
[2021-11-07] MEDS: PROTONIX 40 MG IV*** 80 MG in Sodium Chloride 0.9% 500 ML 500 ML IV SCH ×2 (05:36→17:02)
[2021-11-07] MEDS: DUONEB 0.5-3 MG/3 ml Neb IH SCH ×4 (07:10→19:24)
[2021-11-07] MEDS: Advair Hfa 115/21 Common canister IH SCH ×2 (07:13→19:24)
[2021-11-07 08:39] LABS: Hematocrit 21.8 % (35-47); Mean Cell Volume 100.5 fl (78-100); Mean Corpuscular Hemoglobin 32.3 pg (26-32); Mean Corpuscular Hgb Concent. 32.1 g/dl (32-36); Mean Platelet Volume 9.7 fl (7.5-11.0); Platelet Count 83 K/mm3 (150-450); Red Blood Count 2.17 M/mm3 (4.1-5.4); Red Cell Distribution Width 15.8 % (11.5-14.0); White Blood Count 5.5 K/mm3 (4.0-10.5)
[2021-11-07] MEDS: Cozaar 50 MG PO SCH ×2 (08:43→21:59)
[2021-11-07] MEDS: Calcium 500MG W/Vit D Tablet PO SCH ×2 (08:43→21:58)
[2021-11-07] MEDS: THERAGRAN MULTIVITAMIN PO SCH (08:43)
[2021-11-07] MEDS: Klor Con 10 MEQ PO SCH (08:43)
[2021-11-07] MEDS: Mucinex 600MG ER Tabs PO SCH ×2 (08:43→21:58)
[2021-11-07] MEDS: COREG 12.5 MG PO SCH ×2 (08:43→21:58)
[2021-11-07] MEDS: Bactroban OINTMENT TP SCH ×3 (08:44→22:01)
[2021-11-07] MEDS: MARY'S MAGIC MOUTHWASH PO SCH ×4 (08:44→22:00)
[2021-11-07] MEDS: Pepcid 20 MG VIAL IV SCH ×2 (08:44→21:59)
[2021-11-07] MEDS: Hydromorphone 1 mg/ml Injection IV PRN ×2 (08:55→12:59)
[2021-11-07] MEDS: NORVASC 5 MG PO SCH (09:04)
[2021-11-07] MEDS ORDERED: Sodium Chloride 0.9% 500 ML 500 ML IV SCH (10:45)
[2021-11-07 10:53] LABS: ABO TYPING O; Antibody Screen NEGATIVE (NEGATIVE); RH TYPING POSITIVE
[2021-11-07 10:54] LABS: CROSS MATCH (PRBC) COMPATIBLE (COMPATIBLE)
[2021-11-07 11:09] LABS: ALBUMIN 1.7 g/dL (3.5-5.0); ALKALINE PHOSPHATASE 48 U/L (38-126); ANION GAP 4.1 MEQ/L (5-15); BLOOD UREA NITROGEN 18 mg/dL (7-17); CHLORIDE 115 mmol/L (98-107); Calcium 6.3 mg/dL (8.4-10.2); Carbon Dioxide 22 mmol/L (22-30); Creatinine 1 0.69 mg/dL (0.52-1.04); EST GLOMERULAR FILTRATION RATE > 60.0 ML/MIN; Glucose 122 mg/dL (74-106); Potassium 3.3 mmol/L (3.5-5.1); SGOT/AST 27 U/L (14-36); SGPT/ALT 17 U/L (0-35); SODIUM 137 mmol/L (137-145); Total Protein 3.2 g/dL (6.3-8.2)
--- NOTE | 2021-11-07 11:21 | CONS ---
CONSULT DATE: 11/04/2021 HISTORY: A 76-year-old white female had some vomiting, had some hematemesis with coffee-ground emesis. She denies any significant abdominal pain currently. She has had a rash around her mouth. PAST MEDICAL HISTORY: She has a history of heart disease, hyperlipidemia, hypertension, chronic obstructive pulmonary disease. She had some weakness and some anemia. Cataracts in the past. She has had some reflux and arthritis in the past. The patient has had shingles in the past. She has a rash around her lips. She is not sure whether it is impetigo or other etiology. PAST SURGICAL HISTORY: Appendectomy. Cholecystectomy. Hysterectomy and tubal in the past. She had screws in her back in the past. She has carpal tunnel release in the past. Her last upper endoscopy was several years ago, according to the patient. MEDICATIONS: Albuterol, amlodipine, aspirin, carvedilol, clopidogrel, famotidine, furosemide, losartan, potassium chloride, rosuvastatin, multiple vitamins, alendronate, calcium with vitamin D, magnesium, zinc, magnesium, Caltrate 600 +D Plus tablet. ALLERGIES: IODINE (HIVES). FAMILY HISTORY: Negative in regards to this specific problem. SOCIAL HISTORY: Former smoker. No alcohol abuse. REVIEW OF SYSTEMS: Fourteen systems reviewed. No chest pain or palpitations currently. LAB DATA AND TESTS: Her hemoglobin was 6.1, PLT 162,000. PHYSICAL EXAMINATION: GENERAL: A chronically ill female. HEENT: Sclera nonicteric. NECK: No JVD. CHEST: Equal excursion. CVS: Regular rhythm and pulse. ABDOMEN: Soft. No peritoneal signs. EXTREMITIES: No cyanosis. NEURO: Alert, moving extremities grossly symmetrically. PSYCH: Appropriate mood and affect. SKIN: She does have a rash around her lips and crease area. IMPRESSION: A 76-year-old female with some hematemesis, had some anemia. I do not feel she would tolerate any bowel prep to consider lower endoscopy. I was asked to see her for upper endoscopy at this setting. She ate earlier today though we could add her for upper endoscopy tomorrow at some point when OR time available. General risk of bleeding or infection, risk of bowel injury or perforation, risk of missed or nondiagnosis or incomplete exam. She understands if we do not find anything obvious and she has recurrent anemia, she might need consideration for lower endoscopy at a later date when she can tolerate a bowel prep. She understands and agrees to the plan.
[2021-11-07] MEDS ORDERED: Carafate 1 GM PO SCH (11:30)
[2021-11-07] MEDS: Carafate SUSPENSION 1000 MG/10 ML PO SCH ×3 (11:47→22:01)
--- NOTE | 2021-11-07 12:12 | OP ---
SURGERY DATE/TIME: 11/05/2021 1345 PREOPERATIVE DIAGNOSIS: History of some hematemesis, anemia, GI bleed, need for upper endoscopy. POSTOPERATIVE DIAGNOSES: 1) Large duodenal bulb ulcer. No current active bleeding but likely source of her hematemesis. 2) Mild gastritis. PROCEDURE: EGD with cold biopsy of antrum for Helicobacter pylori. SURGEON: Dr. Afshin Mata. ANESTHESIA: MAC. ESTIMATED BLOOD LOSS: Minimal. INDICATIONS: As noted above. Risks and benefits explained in detail and not limited to and consent obtained. DESCRIPTION OF PROCEDURE AND FINDINGS: The patient is taken to the endoscopy room. MAC anesthesia introduced. After official time out and no disagreement with planned procedure, bite block positioned. Video gastroscope easily passed down the esophagus through the gastroesophageal junction about 40 cm to the patent pylorus to the third portion of the duodenum. The third, second and first portion of duodenum grossly unremarkable. Duodenal bulb had a large ulcer. Question that this is the source of the recent hematemesis. There is no current active bleeding but it was a large ulcer. The scope is pulled back in the stomach. She had some mild gastritis. Cold biopsy taken to evaluate for Helicobacter pylori. There is no endoscopically visible large hiatal hernia on retroflex. The scope is pulled back. Gastroesophageal junction noted to be about 40 cm. There were no signs of any mass. No signs of any active esophageal bleeding just some mild erythema. The scope is withdrawn. The patient tolerated the procedure well. There was no family here to discuss the findings with. It was felt that she should stop all steroids, NSAID's, aspirin, anticoagulant's now and continue on proton pump inhibitor b.i.d.
[2021-11-07 13:00] LABS: Slide Review YES
[2021-11-07] MEDS: Dextrose 5%-NS IV Solution 1000 ML 1,000 ML IV SCH (14:11)
--- NOTE | 2021-11-07 18:15 | PCM.NOTE ---
Date and Time: 11/07/211812 Subjective Assessment: still very weak, - Review of Systems Constitutional: No Fever, No Chills Eyes: No Symptoms Ears, Nose, & Throat: No Symptoms, Mouth Swelling Respiratory: No Cough, No Short Of Breath Cardiac: No Chest Pain, No Edema, No Syncope Abdominal/Gastrointestinal: No Abdominal Pain, No Nausea, No Vomiting, No Diarrhea Genitourinary Symptoms: No Dysuria Musculoskeletal: No Back Pain, No Neck Pain Skin: No Rash Neurological: No Dizziness, No Focal Weakness, No Sensory Changes Psychological: No Symptoms Endocrine: No Symptoms Hematologic/Lymphatic: No Symptoms Immunological/Allergic: No Symptoms Objective Exam General Appearance: no apparent distress, alert Neurologic Exam: alert, oriented x 3, cooperative, normal mood/affect, nml cerebellar function, sensation nml, No motor deficits Skin Exam: normal color, warm, dry Eye Exam: PERRL, EOMI, eyes nml inspection Ears, Nose, Throat Exam: normal ENT inspection, pharynx normal, moist mucous membranes, other (perioral ulcers) Neck Exam: normal inspection, non-tender, supple, full range of motion Respiratory Exam: normal breath sounds, lungs clear, No respiratory distress Cardiovascular Exam: regular rate/rhythm, normal heart sounds Gastrointestinal/Abdomen Exam: soft, No tenderness, No mass Extremity Exam: normal inspection, normal range of motion Back Exam: normal inspection, normal range of motion, No CVA tenderness, No vertebral tenderness Pelvic Exam: deferred Rectal Exam: deferred OBJECTIVE DATA Vital Signs: Vital Signs - 24 hr Temp Pulse Resp BP BP Pulse Ox 11/07/21 16:00 96.6 F 64 16 96/51 95 11/07/21 14:59 61 18 96 11/07/21 12:45 90/73 11/07/21 12:00 96.4 F 64 16 88/52 99 11/07/21 11:31 65 18 94 L 11/07/21 08:00 96.6 F 77 16 101/49 97 11/07/21 07:10 70 18 93 L 11/07/21 03:40 97.4 F 71 18 83/44 96 11/06/21 23:49 97.6 F 80 18 91/68 95 11/06/21 23:48 97.9 F 76 18 82/46 94 L 11/06/21 19:54 98.1 F 85 16 92/52 96 Pain Assessment - Last Documented Pain Intensity 7 Pain Scale Used 0-10 Pain Scale Intake and Output: Intake & Output 11/05/21 11/06/21 11/07/21 11/08/21 11:59 11:59 11:59 11:59 Intake Total 2772 3621 3018 340 Output Total 2850 1500 950 500 Balance -78 2121 2068 -160 Weight 65.499 kg Lab Results: Lab Results-Last 24 Hours 11/07/21 11/07/21 11/07/21 Range/Units 04:28 09:25 09:25 WBC 5.5 (4.0-10.5) K/mm3 RBC 2.17 L (4.1-5.4) M/mm3 Hgb 7.0 L (12.0-16.0) gm/dl Hct 21.8 L (35-47) % MCV 100.5 H (78-100) fl MCH 32.3 H (26-32) pg MCHC 32.1 (32-36) g/dl RDW 15.8 H (11.5-14.0) % Plt Count 83 L (150-450) K/mm3 MPV 9.7 (7.5-11.0) fl Sodium (137-145) mmol/L Potassium (3.5-5.1) mmol/L Chloride (98-107) mmol/L Carbon Dioxide (22-30) mmol/L Anion Gap (5-15) MEQ/L BUN (7-17) mg/dL Creatinine (0.52-1.04) mg/dL Estimated GFR ML/MIN Glucose (74-106) mg/dL Calcium (8.4-10.2) mg/dL Total Bilirubin (0.2-1.3) mg/dL AST (14-36) U/L ALT (0-35) U/L Alkaline Phosphatase (38-126) U/L Serum Total Protein (6.3-8.2) g/dL Albumin (3.5-5.0) g/dL Slides for Path Review YES ABO Group O Rh Factor POSITIVE Antibody Screen NEGATIVE (NEGATIVE) Crossmatch COMPATIBLE COMPATIBLE (COMPATIBLE) 11/07/21 11/07/21 Range/Units 09:25 09:25 WBC (4.0-10.5) K/mm3 RBC (4.1-5.4) M/mm3 Hgb (12.0-16.0) gm/dl Hct (35-47) % MCV (78-100) fl MCH (26-32) pg MCHC (32-36) g/dl RDW (11.5-14.0) % Plt Count (150-450) K/mm3 MPV (7.5-11.0) fl Sodium 137 (137-145) mmol/L Potassium 3.3 L (3.5-5.1) mmol/L Chloride 115 H (98-107) mmol/L Carbon Dioxide 22 (22-30) mmol/L Anion Gap 4.1 L (5-15) MEQ/L BUN 18 H (7-17) mg/dL Creatinine 0.69 (0.52-1.04) mg/dL Estimated GFR > 60.0 ML/MIN Glucose 122 H (74-106) mg/dL Calcium 6.3 L (8.4-10.2) mg/dL Total Bilirubin 0.70 (0.2-1.3) mg/dL AST 27 (14-36) U/L ALT 17 (0-35) U/L Alkaline Phosphatase 48 (38-126) U/L Serum Total Protein 3.2 L (6.3-8.2) g/dL Albumin 1.7 L (3.5-5.0) g/dL Slides for Path Review ABO Group Rh Factor Antibody Screen (NEGATIVE) Crossmatch COMPATIBLE (COMPATIBLE) Multi-Disciplinary Progress Notes: Multi-Disciplinary Progress Notes 11/07/21 11:39 Case Management Note by Ursula Mcarthur REFERRAL FAXED TO [facility] PER PATIENT REQUEST FOR REHAB STAY AFTER DISCHARGE. SPOKE WITH STEPHANI, HE WILL LOOK OVER PAPERWORK AND LET ME KNOW IF PATIENT CAN BE ACCEPTED. Initialized on 11/07/21 11:39 - END OF NOTE Assessment/Plan (1) Duodenal ulcer due to nonsteroidal anti-inflammatory drug (NSAID) Current Visit: Yes Status: Acute Assessment & Plan: Chief Complaint Diagnosis abdominal pain epigastric area for 2-3 days Allergies Allergy/AdvReac Type Severity Reaction Status Date / Time iodine Allergy Severe Hives Verified 10/24/21 11:11 Vital Signs (Last 24 hours) Temp Pulse Resp BP BP Pulse Ox 11/07/21 16:00 96.6 F 64 16 96/51 95 11/07/21 14:59 61 18 96 11/07/21 12:45 90/73 11/07/21 12:00 96.4 F 64 16 88/52 99 11/07/21 11:31 65 18 94 L 11/07/21 08:00 96.6 F 77 16 101/49 97 11/07/21 07:10 70 18 93 L 11/07/21 03:40 97.4 F 71 18 83/44 96 11/06/21 23:49 97.6 F 80 18 91/68 95 11/06/21 23:48 97.9 F 76 18 82/46 94 L 11/06/21 19:54 98.1 F 85 16 92/52 96 Current Medications Generic Name Dose Route Start Last Admin Trade Name Freq PRN Reason Stop Dose Admin Albuterol/Ipratropium 3 ml 11/04/21 15:00 11/07/21 14:58 Ipratropium/Albuterol Sulfate 3 Ml Ampul.Neb IH 12/04/21 14:59 3 ml QIDRT MICKY Administration Alendronate Sodium 70 mg 11/06/21 06:00 Alendronate Sodium 70 Mg Tablet PO 12/06/21 05:59 WEEKLY MICKY Amlodipine Besylate 2.5 mg 11/04/21 13:00 11/07/21 09:04 Amlodipine Besylate 5 Mg Tablet PO 12/04/21 12:59 Not Given DAILY MICKY Calcium Carbonate 1 tab 11/04/21 22:00 11/07/21 08:43 Calcium Carbonate 500 Mg/Vitamin D 1 Tab Tablet PO 12/04/21 21:59 1 tab BID MICKY Administration Carvedilol 25 mg 11/04/21 13:00 11/07/21 08:43 Carvedilol 12.5 Mg Tablet PO 12/04/21 12:59 25 mg BID MICKY Administration Diphenhydramine/Hydrocorti/Nystatin 5 ml 11/06/21 10:00 11/07/21 16:02 Nystatin/Tcn/Pred/Diphenhydramin 240 Ml Bottle PO 12/06/21 09:59 5 ml QID MICKY Administration Famotidine 20 mg 11/04/21 13:00 11/07/21 08:44 Famotidine 20 Mg/1 Vial IV 12/04/21 12:59 20 mg Q12HT MICKY Administration Furosemide 20 mg 11/04/21 13:00 Furosemide 20 Mg Tablet PO 12/04/21 12:59 DAILY PRN PRN NEEDED FOR WATER GAIN Guaifenesin 1,200 mg 11/04/21 22:00 11/07/21 08:43 Guaifenesin 600 Mg Tablet Er PO 12/04/21 21:59 1,200 mg BID MICKY Administration Hydromorphone HCl 0.5 mg 11/06/21 10:23 11/07/21 12:59 Hydromorphone 1 Mg/1ml Inj 1 Mg/Ml Syringe IV 11/11/21 10:22 0.5 mg Q4H PRN PRN Administration PAIN Pantoprazole Sodium 80 mg/ 500 mls @ 50 mls/hr 11/04/21 13:00 11/07/21 17:02 Sodium Chloride IV 12/04/21 12:59 50 ml/hr .Q10H MICKY 50 mls/hr Administration Dextrose/Sodium Chloride 1,000 mls @ 50 mls/hr 11/06/21 10:30 11/07/21 14:11 Dextrose 5%-Ns Iv Solution 1000 Ml IV 12/06/21 10:29 50 mls/hr .Q20H MICKY Administration Acyclovir Sodium 500 mg/ 100 mls @ 100 mls/hr 11/06/21 22:00 11/07/21 14:02 Sodium Chloride IV 12/06/21 21:59 100 mls/hr Q8HT MICKY Administration Sodium Chloride 500 mls @ 50 mls/hr 11/07/21 10:45 11/07/21 11:09 Sodium Chloride 0.9% 500 Ml IV 12/07/21 10:44 50 mls/hr .Q10H MICKY Administration Losartan Potassium 25 mg 11/04/21 13:00 11/07/21 08:43 Losartan Potassium 50 Mg Tablet PO 12/04/21 12:59 25 mg BID MICKY Administration Miscellaneous Medication 1 each 11/06/21 10:00 11/07/21 09:03 No Nsaids/As/Plavix MC 12/06/21 09:59 1 each DAILY MICKY Administration Multivitamins Therapeutic 1 tab 11/05/21 10:00 11/07/21 08:43 Multivitamins,Therapeutic 1 Tab Tab PO 12/05/21 09:59 1 tab DAILY MICKY Administration Mupirocin 0 gm 11/06/21 12:00 11/07/21 15:54 Mupirocin 22 Gm Tube Ointment TP 12/06/21 11:59 22 gm TID MICKY Administration Ondansetron HCl 4 mg 11/05/21 00:36 11/05/21 00:45 Ondansetron Hcl 4 Mg/2 Ml Vial IV 12/05/21 00:35 4 mg Q4H/PRN PRN Administration VOMITING Potassium Chloride 20 meq 11/04/21 13:00 11/07/21 08:43 Potassium Chloride 10 Meq Tablet PO 12/04/21 12:59 20 meq DAILY MICKY Administration Fluticasone/Salmeterol 2 puff 11/04/21 19:00 11/07/21 07:13 Fluticasone/Salmeterol 115/21 - 120 Puff Common Canister IH 12/04/21 18:59 Not Given BIDRT MICKY Simvastatin 40 mg 11/04/21 22:00 11/06/21 22:20 Simvastatin 20 Mg Tablet PO 12/04/21 21:59 40 mg HS MICKY Administration Sucralfate 1,000 mg 11/07/21 11:30 11/07/21 15:54 Sucralfate 1000 Mg/10 Ml Suspension PO 12/07/21 11:29 1,000 mg ACHS MICKY Administration Discontinued Medications Generic Name Dose Route Start Last Admin Trade Name Freq PRN Reason Stop Dose Admin Acetaminophen 650 mg 11/04/21 11:08 11/04/21 12:32 Acetaminophen 325 Mg Tablet PO 11/04/21 11:09 650 mg PRIOR TO BLOOD ONE Administration Acetaminophen 650 mg 11/05/21 04:22 11/05/21 05:39 Acetaminophen 325 Mg Tablet PO 11/05/21 04:23 650 mg PRIOR TO BLOOD ONE Administration Albuterol Sulfate 2.5 mg 11/04/21 15:00 11/06/21 02:43 Albuterol Sulfate 2.5 Mg/3 Ml Neb IH 12/04/21 14:59 Not Given QIDRT MICKY Diphenhydramine HCl 25 mg 11/04/21 11:08 11/04/21 12:32 Diphenhydramine Hcl 25 Mg Capsule PO 11/04/21 11:09 25 mg PRIOR TO BLOOD ONE Administration Sodium Chloride 1,000 mls @ 200 mls/hr 11/04/21 04:15 11/06/21 02:43 Sodium Chloride 0.9% 1000 Ml IV 12/04/21 04:14 Not Given .Q5H MICKY Sodium Chloride Confirm 11/04/21 04:30 Sodium Chloride 0.9% 1000 Ml Administered 11/04/21 04:31 Dose 1,000 mls @ ud .ROUTE .STK-MED ONE Sodium Chloride Confirm 11/04/21 07:44 Sodium Chloride 0.9% 1000 Ml Administered 11/04/21 07:45 Dose 1,000 mls @ ud .ROUTE .STK-MED ONE Sodium Chloride 1,000 mls @ 50 mls/hr 11/04/21 11:08 11/06/21 01:58 Sodium Chloride 0.9% 1000 Ml IV 12/04/21 11:07 Not Given .Q20H MICKY Acyclovir Sodium 500 mg/ 100 mls @ 100 mls/hr 11/04/21 12:15 11/06/21 12:00 Sodium Chloride IV 12/04/21 12:14 100 mls/hr Q12HT MICKY Administration Sodium Chloride 500 mls @ 500 mls/hr 11/05/21 00:39 11/05/21 00:44 Sodium Chloride 0.9% 500 Ml IV 11/05/21 01:38 500 mls/hr .Q1H ONE Administration Lidocaine HCl Confirm 11/04/21 07:03 Lidocaine Hcl 2% 20 Ml Mdv Administered 11/04/21 07:04 Dose 5 ml .ROUTE .STK-MED ONE Lidocaine/Epinephrine Confirm 11/05/21 13:24 Lidocaine Hcl/Epinephrine 2% 20 Ml Vial Mpf Administered 11/05/21 13:25 Dose 20 ml .ROUTE .STK-MED ONE Mupirocin 1 gm 11/06/21 10:00 11/06/21 15:43 Mupirocin 22 Gm Tube Ointment TP 12/06/21 09:59 Not Given TID MICKY Non-Formulary Medication 1 gm 11/04/21 16:30 Triamcinolone Acetonide [Kenalog In Orabase] MM 12/04/21 16:29 AC MICKY Non-Formulary Medication 5 gm 11/04/21 12:14 Triamcinolone Acetonide [Kenalog In Orabase] DT UD PRN PAIN Non-Formulary Medication 1 each 11/06/21 10:20 11/06/21 12:21 Pharmacy Dosing Request 11/06/21 10:21 1 each STAT ONE Administration Pantoprazole Sodium 40 mg 11/04/21 04:56 11/04/21 05:09 Pantoprazole 40 Mg Vial IV 11/04/21 04:57 40 mg STAT ONE Administration Pantoprazole Sodium Confirm 11/04/21 05:08 Pantoprazole 40 Mg Vial Administered 11/04/21 05:09 Dose 40 mg IV .STK-MED ONE Pantoprazole Sodium Confirm 11/06/21 05:21 Pantoprazole 40 Mg Vial Administered 11/06/21 05:22 Dose 80 mg IV .STK-MED ONE Phenylephrine HCl Confirm 11/05/21 13:24 Phenylephrine 10 Mg/Ml Vial Administered 11/05/21 13:25 Dose 10 mg .ROUTE .STK-MED ONE Prednisone 10 mg 11/04/21 13:00 11/05/21 10:13 Prednisone 10 Mg Tablet PO 12/04/21 12:59 Not Given DAILY MICKY Propofol Confirm 11/05/21 13:24 Propofol 10 Mg/Ml 20ml Vial Administered 11/05/21 13:25 Dose 200 mg IV .STK-MED ONE Sucralfate 1 g 11/07/21 11:30 Sucralfate 1 G Tablet PO 12/07/21 11:29 ACHS MICKY Intake & Output (Last 24 hours) 11/05/21 11/06/21 11/07/21 11/08/21 11:59 11:59 11:59 11:59 Intake Total 2772 3621 3018 340 Output Total 2850 1500 950 500 Balance -78 2121 2068 -160 Weight 65.499 kg Laboratory Results (Last 24 hours) 11/07/21 11/07/21 11/07/21 09:25 09:25 09:25 WBC RBC Hgb Hct MCV MCH MCHC RDW Plt Count MPV Sodium 137 Potassium 3.3 L Chloride 115 H Carbon Dioxide 22 Anion Gap 4.1 L BUN 18 H Creatinine 0.69 Estimated GFR > 60.0 Glucose 122 H Calcium 6.3 L Total Bilirubin 0.70 AST 27 ALT 17 Alkaline Phosphatase 48 Serum Total Protein 3.2 L Albumin 1.7 L Slides for Path Review ABO Group Rh Factor Antibody Screen Crossmatch COMPATIBLE COMPATIBLE 11/07/21 11/07/21 09:25 04:28 WBC 5.5 RBC 2.17 L Hgb 7.0 L Hct 21.8 L MCV 100.5 H MCH 32.3 H MCHC 32.1 RDW 15.8 H Plt Count 83 L MPV 9.7 Sodium Potassium Chloride Carbon Dioxide Anion Gap BUN Creatinine Estimated GFR Glucose Calcium Total Bilirubin AST ALT Alkaline Phosphatase Serum Total Protein Albumin Slides for Path Review YES ABO Group O Rh Factor POSITIVE Antibody Screen NEGATIVE Crossmatch COMPATIBLE Orders (Last 24 hours) Category Date Time Status BLOOD COMPONENT REQUEST Stat Lab 11/07/21 09:25 Completed CBC AM.LAB Lab 11/07/21 04:28 Completed CBC W DIFF AM.LAB Lab 11/08/21 04:00 Ordered CMP Urgent Lab 11/07/21 09:25 Completed TYPE AND SCREEN Stat Lab 11/07/21 09:25 Completed Acyclovir Sodium Inj [Zovirax INJ] 500 mg Med 11/06/21 22:00 Active NaCl 0.9% 100Ml [Sodium Chloride 0.9% 100 ML BAG] 100 ml IV Q8HT NaCl 0.9% 500 ml [Sodium Chloride 0.9% 500 ML] 500 ml Med 11/07/21 10:45 Active IV 50 mls/hr Sucralfate 1 gm [Carafate 1 GM] Med 11/07/21 11:30 Discontinued 1 g PO ACHS Sucralfate 1000 mg/10 ml [Carafate SUSPENSION 1000 Med 11/07/21 11:30 Active MG/10 ML] 1,000 mg PO ACHS Patient Care Notes (Last 24 hours) 11/07/21 11:39 Case Management Note by Ursula Mcarthur REFERRAL FAXED TO [facility] PER PATIENT REQUEST FOR REHAB STAY AFTER DISCHARGE. SPOKE WITH STEPH[facility], HE WILL LOOK OVER PAPERWORK AND LET ME KNOW IF PATIENT CAN BE ACCEPTED. Initialized on 11/07/21 11:39 - END OF NOTE Code(s): K26.9 - DUODENAL ULCER, UNSP ACUTE OR CHRONIC, W/O HEMOR OR PERF; T39.395A - ADVERSE EFFECT OF NONSTEROIDAL ANTI-INFLAMMATORY DRUGS, INIT (2) Hematochezia Current Visit: Yes Status: Acute Code(s): K92.1 - MELENA (3) Anemia Current Visit: Yes Status: Acute Qualifiers: Anemia type: iron deficiency Iron deficiency anemia type: chronic blood loss Qualified Code(s): D50.0 - Iron deficiency anemia secondary to blood loss (chronic) Code(s): D64.9 - ANEMIA, UNSPECIFIED (4) Symptomatic anemia Current Visit: Yes Status: Acute Code(s): D64.9 - ANEMIA, UNSPECIFIED
[2021-11-07] MEDS ORDERED: Sodium Chloride 0.9% 1000 ML 1,000 ML ONE (21:43)
[2021-11-07] MEDS: ZOCOR 20MG PO SCH (21:55)
[2021-11-07 22:19] LABS: Hematocrit 36.1 % (35-47)
[2021-11-07 22:21] LABS: Hemoglobin 12.1 gm/dl (12.0-16.0)
[2021-11-08] MEDS: PROTONIX 40 MG IV*** 80 MG in Sodium Chloride 0.9% 500 ML 500 ML IV SCH ×2 (02:38→14:51)
[2021-11-08] MEDS: Hydromorphone 1 mg/ml Injection IV PRN ×2 (03:54→22:35)
[2021-11-08] MEDS: SODIUM CHLORIDE 0.9% IV SCH ×3 (05:41→22:31)
[2021-11-08] MEDS: ZOVIRAX IV SCH ×3 (05:41→22:31)
[2021-11-08 05:44] LABS: Absolute Neutrophil Ct (ANC) 3.66 (1.4-6.9); Basophil (Absolute #) 0.01 (0-0.4); Eosinophil % 3.5 % (0.00-5.0); Eosinophil (Absolute #) 0.19 (0-0.5); Hemoglobin 11.4 gm/dl (12.0-16.0); Lymphocyte (Absolute #) 0.92 (1.0-4.6); Lymphocytes % 16.8 % (24.0-44.0); Mean Cell Volume 95.5 fl (78-100); Mean Corpuscular Hgb Concent. 33.5 g/dl (32-36); Mean Platelet Volume 9.9 fl (7.5-11.0); Monocyte (Absolute #) 0.68 (0.0-1.3); Monocytes % 12.5 % (0.0-12.0); Platelet Count 85 K/mm3 (150-450); Red Blood Count 3.56 M/mm3 (4.1-5.4); Red Cell Distribution Width 15.5 % (11.5-14.0); White Blood Count 5.5 K/mm3 (4.0-10.5)
[2021-11-08 07:35] LABS: Slide Review 1 YES
[2021-11-08] MEDS: DUONEB 0.5-3 MG/3 ml Neb IH SCH ×4 (07:35→18:51)
[2021-11-08] MEDS: Advair Hfa 115/21 Common canister IH SCH ×2 (08:29→18:52)
[2021-11-08] MEDS: Carafate SUSPENSION 1000 MG/10 ML PO SCH ×4 (08:46→22:30)
[2021-11-08] MEDS: Cozaar 50 MG PO SCH ×2 (10:16→22:29)
[2021-11-08] MEDS: Calcium 500MG W/Vit D Tablet PO SCH ×2 (10:16→22:30)
[2021-11-08] MEDS: NORVASC 5 MG PO SCH (10:17)
[2021-11-08] MEDS: Pepcid 20 MG VIAL IV SCH ×2 (10:17→22:31)
[2021-11-08] MEDS: COREG 12.5 MG PO SCH ×2 (10:17→22:27)
[2021-11-08] MEDS: Bactroban OINTMENT TP SCH ×3 (10:17→22:31)
[2021-11-08] MEDS: Mucinex 600MG ER Tabs PO SCH ×2 (10:17→22:28)
[2021-11-08] MEDS: Klor Con 10 MEQ PO SCH (10:17)
[2021-11-08] MEDS: THERAGRAN MULTIVITAMIN PO SCH (10:17)
[2021-11-08] MEDS: MARY'S MAGIC MOUTHWASH PO SCH ×4 (10:20→22:28)
--- NOTE | 2021-11-08 13:22 | PCM.NOTE ---
Date and Time: 11/08/21 1321 Subjective Assessment: doing better, hgb stable, platelet count improved - Review of Systems Constitutional: No Fever, No Chills Eyes: No Symptoms Ears, Nose, & Throat: No Symptoms Respiratory: No Cough, No Short Of Breath Cardiac: No Chest Pain, No Edema, No Syncope Abdominal/Gastrointestinal: No Abdominal Pain, No Nausea, No Vomiting, No Diarrhea Genitourinary Symptoms: No Dysuria Musculoskeletal: No Back Pain, No Neck Pain Skin: No Rash Neurological: No Dizziness, No Focal Weakness, No Sensory Changes Psychological: No Symptoms Endocrine: No Symptoms Hematologic/Lymphatic: No Symptoms Immunological/Allergic: No Symptoms Objective Exam General Appearance: no apparent distress, alert Neurologic Exam: alert, oriented x 3, cooperative, normal mood/affect, nml cerebellar function, sensation nml, No motor deficits Skin Exam: normal color, warm, dry Eye Exam: PERRL, EOMI, eyes nml inspection Ears, Nose, Throat Exam: normal ENT inspection, pharynx normal, moist mucous membranes Neck Exam: normal inspection, non-tender, supple, full range of motion Respiratory Exam: normal breath sounds, lungs clear, No respiratory distress Cardiovascular Exam: regular rate/rhythm, normal heart sounds Gastrointestinal/Abdomen Exam: soft, No tenderness, No mass Extremity Exam: normal inspection, normal range of motion Back Exam: normal inspection, normal range of motion, No CVA tenderness, No vertebral tenderness Pelvic Exam: deferred Rectal Exam: deferred OBJECTIVE DATA Vital Signs: Vital Signs - 24 hr Temp Pulse Resp BP Pulse Ox 11/08/21 12:00 96.6 F 75 17 126/60 96 11/08/21 11:00 64 24 94 L 11/08/21 07:51 97.2 F 67 21 108/54 95 11/08/21 07:38 83 18 94 L 11/08/21 04:00 97.7 F 64 15 109/55 93 L 11/08/21 00:00 96.8 F 68 18 116/58 97 11/07/21 20:00 97.0 F 59 L 18 124/60 96 11/07/21 19:25 62 18 95 11/07/21 16:00 96.6 F 64 16 96/51 95 11/07/21 14:59 61 18 96 Pain Assessment - Last Documented Pain Intensity 2 Pain Scale Used [facility] Intake and Output: Intake & Output 11/06/21 11/07/21 11/08/21 11/09/21 11:59 11:59 11:59 11:59 Intake Total 362 3017 6761 Output Total 3383 872 950 Balance 2675 4180 6333 Weight 65.499 kg Lab Results: Lab Results-Last 24 Hours 11/07/21 11/08/21 Range/Units 22:10 04:00 WBC 5.5 (4.0-10.5) K/mm3 RBC 3.56 L (4.1-5.4) M/mm3 Hgb 12.1 D 11.4 L (12.0-16.0) gm/dl Hct 36.1 34.0 L (35-47) % MCV 95.5 (78-100) fl MCH 32.0 (26-32) pg MCHC 33.5 (32-36) g/dl RDW 15.5 H (11.5-14.0) % Plt Count 85 L (150-450) K/mm3 MPV 9.9 (7.5-11.0) fl Gran % 67.0 H (36.0-66.0) % Eos # (Auto) 0.19 (0-0.5) Absolute Lymphs (auto) 0.92 L (1.0-4.6) Absolute Monos (auto) 0.68 (0.0-1.3) Lymphocytes % 16.8 L (24.0-44.0) % Monocytes % 12.5 H (0.0-12.0) % Eosinophils % 3.5 (0.00-5.0) % Basophils % 0.2 (0.0-0.4) % Absolute Granulocytes 3.66 (1.4-6.9) Basophils # 0.01 (0-0.4) Slides for Path Review YES Multi-Disciplinary Progress Notes: Multi-Disciplinary Progress Notes 11/08/21 12:51 Case Management Note by Ursula Mcarthur FROM [facility] PHONED THIS NURSE, UNABLE TO COME AND SEE PATIENT TODAY, BUT SHOULD BE ABLE TO TAKE PATIENT ON D/C, WILL DISCUSS AGAIN WITH COOPERATE Initialized on 11/08/21 12:51 - END OF NOTE Assessment/Plan (1) Duodenal ulcer due to nonsteroidal anti-inflammatory drug (NSAID) Current Visit: Yes Status: Acute Assessment & Plan: Chief Complaint Diagnosis abdominal pain epigastric area for 2-3 days Allergies Allergy/AdvReac Type Severity Reaction Status Date / Time iodine Allergy Severe Hives Verified 10/24/21 11:11 Vital Signs (Last 24 hours) Temp Pulse Resp BP Pulse Ox 11/08/21 12:00 96.6 F 75 17 126/60 96 11/08/21 11:00 64 24 94 L 11/08/21 07:51 97.2 F 67 21 108/54 95 11/08/21 07:38 83 18 94 L 11/08/21 04:00 97.7 F 64 15 109/55 93 L 11/08/21 00:00 96.8 F 68 18 116/58 97 11/07/21 20:00 97.0 F 59 L 18 124/60 96 11/07/21 19:25 62 18 95 11/07/21 16:00 96.6 F 64 16 96/51 95 11/07/21 14:59 61 18 96 Current Medications Generic Name Dose Route Start Last Admin Trade Name Jacqueline PRN Reason Stop Dose Admin Albuterol/Ipratropium 3 ml 11/04/21 15:00 11/08/21 10:56 Ipratropium/Albuterol Sulfate 3 Ml Ampul.Neb IH 12/04/21 14:59 3 ml QIDRT MICKY Administration Alendronate Sodium 70 mg 11/06/21 06:00 Alendronate Sodium 70 Mg Tablet PO 12/06/21 05:59 WEEKLY MICKY Amlodipine Besylate 2.5 mg 11/04/21 13:00 11/08/21 10:17 Amlodipine Besylate 5 Mg Tablet PO 12/04/21 12:59 2.5 mg DAILY MICKY Administration Calcium Carbonate 1 tab 11/04/21 22:00 11/08/21 10:16 Calcium Carbonate 500 Mg/Vitamin D 1 Tab Tablet PO 12/04/21 21:59 1 tab BID MICKY Administration Carvedilol 25 mg 11/04/21 13:00 11/08/21 10:17 Carvedilol 12.5 Mg Tablet PO 12/04/21 12:59 25 mg BID MICKY Administration Diphenhydramine/Hydrocorti/Nystatin 5 ml 11/06/21 10:00 11/08/21 10:20 Nystatin/Tcn/Pred/Diphenhydramin 240 Ml Bottle PO 12/06/21 09:59 5 ml QID MICKY Administration Famotidine 20 mg 11/04/21 13:00 11/08/21 10:17 Famotidine 20 Mg/1 Vial IV 12/04/21 12:59 20 mg Q12HT MICKY Administration Furosemide 20 mg 11/04/21 13:00 Furosemide 20 Mg Tablet PO 12/04/21 12:59 DAILY PRN PRN NEEDED FOR WATER GAIN Guaifenesin 1,200 mg 11/04/21 22:00 11/08/21 10:17 Guaifenesin 600 Mg Tablet Er PO 12/04/21 21:59 1,200 mg BID MICKY Administration Hydromorphone HCl 0.5 mg 11/06/21 10:23 11/08/21 03:54 Hydromorphone 1 Mg/1ml Inj 1 Mg/Ml Syringe IV 11/11/21 10:22 0.5 mg Q4H PRN PRN Administration PAIN Pantoprazole Sodium 80 mg/ 500 mls @ 50 mls/hr 11/04/21 13:00 11/08/21 02:38 Sodium Chloride IV 12/04/21 12:59 50 ml/hr .Q10H MICKY 50 mls/hr Administration Dextrose/Sodium Chloride 1,000 mls @ 50 mls/hr 11/06/21 10:30 11/07/21 14:11 Dextrose 5%-Ns Iv Solution 1000 Ml IV 12/06/21 10:29 50 mls/hr .Q20H MICKY Administration Acyclovir Sodium 500 mg/ 100 mls @ 100 mls/hr 11/06/21 22:00 11/08/21 05:41 Sodium Chloride IV 12/06/21 21:59 100 mls/hr Q8HT MICKY Administration Sodium Chloride 500 mls @ 50 mls/hr 11/07/21 10:45 11/07/21 11:09 Sodium Chloride 0.9% 500 Ml IV 12/07/21 10:44 50 mls/hr .Q10H MICKY Administration Losartan Potassium 25 mg 11/04/21 13:00 11/08/21 10:16 Losartan Potassium 50 Mg Tablet PO 12/04/21 12:59 25 mg BID MICKY Administration Miscellaneous Medication 1 each 11/06/21 10:00 11/08/21 10:18 No Nsaids/As/Plavix MC 12/06/21 09:59 1 each DAILY MICKY Administration Multivitamins Therapeutic 1 tab 11/05/21 10:00 11/08/21 10:17 Multivitamins,Therapeutic 1 Tab Tab PO 12/05/21 09:59 1 tab DAILY MICKY Administration Mupirocin 0 gm 11/06/21 12:00 11/08/21 10:17 Mupirocin 22 Gm Tube Ointment TP 12/06/21 11:59 1 gm TID MICKY Administration Ondansetron HCl 4 mg 11/05/21 00:36 11/05/21 00:45 Ondansetron Hcl 4 Mg/2 Ml Vial IV 12/05/21 00:35 4 mg Q4H/PRN PRN Administration VOMITING Potassium Chloride 20 meq 11/04/21 13:00 11/08/21 10:17 Potassium Chloride 10 Meq Tablet PO 12/04/21 12:59 20 meq DAILY MICKY Administration Fluticasone/Salmeterol 2 puff 11/04/21 19:00 11/08/21 08:29 Fluticasone/Salmeterol 115/21 - 120 Puff Common Canister IH 12/04/21 18:59 Not Given BIDRT MICKY Simvastatin 40 mg 11/04/21 22:00 11/07/21 21:55 Simvastatin 20 Mg Tablet PO 12/04/21 21:59 40 mg HS MICKY Administration Sucralfate 1,000 mg 11/07/21 11:30 11/08/21 08:46 Sucralfate 1000 Mg/10 Ml Suspension PO 12/07/21 11:29 1,000 mg ACHS MICKY Administration Discontinued Medications Generic Name Dose Route Start Last Admin Trade Name Freq PRN Reason Stop Dose Admin Acetaminophen 650 mg 11/04/21 11:08 11/04/21 12:32 Acetaminophen 325 Mg Tablet PO 11/04/21 11:09 650 mg PRIOR TO BLOOD ONE Administration Acetaminophen 650 mg 11/05/21 04:22 11/05/21 05:39 Acetaminophen 325 Mg Tablet PO 11/05/21 04:23 650 mg PRIOR TO BLOOD ONE Administration Albuterol Sulfate 2.5 mg 11/04/21 15:00 11/06/21 02:43 Albuterol Sulfate 2.5 Mg/3 Ml Neb IH 12/04/21 14:59 Not Given QIDRT MICKY Diphenhydramine HCl 25 mg 11/04/21 11:08 11/04/21 12:32 Diphenhydramine Hcl 25 Mg Capsule PO 11/04/21 11:09 25 mg PRIOR TO BLOOD ONE Administration Sodium Chloride 1,000 mls @ 200 mls/hr 11/04/21 04:15 11/06/21 02:43 Sodium Chloride 0.9% 1000 Ml IV 12/04/21 04:14 Not Given .Q5H MICKY Sodium Chloride Confirm 11/04/21 04:30 Sodium Chloride 0.9% 1000 Ml Administered 11/04/21 04:31 Dose 1,000 mls @ ud .ROUTE .STK-MED ONE Sodium Chloride Confirm 11/04/21 07:44 Sodium Chloride 0.9% 1000 Ml Administered 11/04/21 07:45 Dose 1,000 mls @ ud .ROUTE .STK-MED ONE Sodium Chloride 1,000 mls @ 50 mls/hr 11/04/21 11:08 11/06/21 01:58 Sodium Chloride 0.9% 1000 Ml IV 12/04/21 11:07 Not Given .Q20H MICKY Acyclovir Sodium 500 mg/ 100 mls @ 100 mls/hr 11/04/21 12:15 11/06/21 12:00 Sodium Chloride IV 12/04/21 12:14 100 mls/hr Q12HT MICKY Administration Sodium Chloride 500 mls @ 500 mls/hr 11/05/21 00:39 11/05/21 00:44 Sodium Chloride 0.9% 500 Ml IV 11/05/21 01:38 500 mls/hr .Q1H ONE Administration Sodium Chloride Confirm 11/07/21 21:43 Sodium Chloride 0.9% 1000 Ml Administered 11/07/21 21:44 Dose 1,000 mls @ ud .ROUTE .STK-MED ONE Lidocaine HCl Confirm 11/04/21 07:03 Lidocaine Hcl 2% 20 Ml Mdv Administered 11/04/21 07:04 Dose 5 ml .ROUTE .STK-MED ONE Lidocaine/Epinephrine Confirm 11/05/21 13:24 Lidocaine Hcl/Epinephrine 2% 20 Ml Vial Mpf Administered 11/05/21 13:25 Dose 20 ml .ROUTE .STK-MED ONE Mupirocin 1 gm 11/06/21 10:00 11/06/21 15:43 Mupirocin 22 Gm Tube Ointment TP 12/06/21 09:59 Not Given TID MICKY Non-Formulary Medication 1 gm 11/04/21 16:30 Triamcinolone Acetonide [Kenalog In Orabase] MM 12/04/21 16:29 AC MICKY Non-Formulary Medication 5 gm 11/04/21 12:14 Triamcinolone Acetonide [Kenalog In Orabase] DT UD PRN PAIN Non-Formulary Medication 1 each 11/06/21 10:20 11/06/21 12:21 Pharmacy Dosing Request MC 11/06/21 10:21 1 each STAT ONE Administration Pantoprazole Sodium 40 mg 11/04/21 04:56 11/04/21 05:09 Pantoprazole 40 Mg Vial IV 11/04/21 04:57 40 mg STAT ONE Administration Pantoprazole Sodium Confirm 11/04/21 05:08 Pantoprazole 40 Mg Vial Administered 11/04/21 05:09 Dose 40 mg IV .STK-MED ONE Pantoprazole Sodium Confirm 11/06/21 05:21 Pantoprazole 40 Mg Vial Administered 11/06/21 05:22 Dose 80 mg IV .STK-MED ONE Phenylephrine HCl Confirm 11/05/21 13:24 Phenylephrine 10 Mg/Ml Vial Administered 11/05/21 13:25 Dose 10 mg .ROUTE .STK-MED ONE Prednisone 10 mg 11/04/21 13:00 11/05/21 10:13 Prednisone 10 Mg Tablet PO 12/04/21 12:59 Not Given DAILY MICKY Propofol Confirm 11/05/21 13:24 Propofol 10 Mg/Ml 20ml Vial Administered 11/05/21 13:25 Dose 200 mg IV .STK-MED ONE Sucralfate 1 g 11/07/21 11:30 Sucralfate 1 G Tablet PO 12/07/21 11:29 ACHS MICKY Intake & Output (Last 24 hours) 11/06/21 11/07/21 11/08/21 11/09/21 11:59 11:59 11:59 11:59 Intake Total 3621 3018 6799 Output Total 1500 950 950 Balance 7469 7 5835 Weight 65.499 kg Laboratory Results (Last 24 hours) 11/08/21 11/07/21 04:00 22:10 WBC 5.5 RBC 3.56 L Hgb 11.4 L 12.1 D Hct 34.0 L 36.1 MCV 95.5 MCH 32.0 MCHC 33.5 RDW 15.5 H Plt Count 85 L MPV 9.9 Gran % 67.0 H Eos # (Auto) 0.19 Absolute Lymphs (auto) 0.92 L Absolute Monos (auto) 0.68 Lymphocytes % 16.8 L Monocytes % 12.5 H Eosinophils % 3.5 Basophils % 0.2 Absolute Granulocytes 3.66 Basophils # 0.01 Slides for Path Review YES Orders (Last 24 hours) Category Date Time Status BMP AM.LAB Lab 11/09/21 04:00 Ordered CBC W DIFF AM.LAB Lab 11/08/21 04:00 Completed CBC W DIFF AM.LAB Lab 11/09/21 04:00 Ordered HEMOGLOBIN AND HEMATOCRIT Urgent Lab 11/07/21 22:10 Completed NaCl 0.9% 1000 ml [Sodium Chloride 0.9% 1000 ML] 1,000 Med 11/07/21 21:43 Discontinued ml .ROUTE UD OT Eval and Treat ( Order) ROUTINE OT 11/08/21 08:53 Active PT Eval & Treat (MD Order) ONCE PT 11/08/21 08:53 Completed Patient Care Notes (Last 24 hours) 11/08/21 12:51 Case Management Note by Ursula Mcarthur FROM [facility] PHONED THIS NURSE, UNABLE TO COME AND SEE PATIENT TODAY, BUT SHOULD BE ABLE TO TAKE PATIENT ON D/C, WILL DISCUSS AGAIN WITH COOPERATE Initialized on 11/08/21 12:51 - END OF NOTE Code(s): K26.9 - DUODENAL ULCER, UNSP ACUTE OR CHRONIC, W/O HEMOR OR PERF; T39.395A - ADVERSE EFFECT OF NONSTEROIDAL ANTI-INFLAMMATORY DRUGS, INIT (2) Hematochezia Current Visit: Yes Status: Acute Code(s): K92.1 - MELENA (3) Anemia Current Visit: Yes Status: Acute Qualifiers: Anemia type: iron deficiency Iron deficiency anemia type: chronic blood loss Qualified Code(s): D50.0 - Iron deficiency anemia secondary to blood loss (chronic) Code(s): D64.9 - ANEMIA, UNSPECIFIED (4) Symptomatic anemia Current Visit: Yes Status: Acute Code(s): D64.9 - ANEMIA, UNSPECIFIED
[2021-11-08] MEDS: Dextrose 5%-NS IV Solution 1000 ML 1,000 ML IV SCH (14:40)
[2021-11-08] MEDS: ZOCOR 20MG PO SCH (22:28)
[2021-11-09] MEDS: PROTONIX 40 MG IV*** 80 MG in Sodium Chloride 0.9% 500 ML 500 ML IV SCH ×3 (01:13→21:54)
[2021-11-09] MEDS: Hydromorphone 1 mg/ml Injection IV PRN ×5 (05:09→21:28)
[2021-11-09] MEDS: Zofran 4 MG/2 ML VIAL IV PRN (05:09)
[2021-11-09 05:34] LABS: Absolute Neutrophil Ct (ANC) 4.66 (1.4-6.9); Basophil (Absolute #) 0.01 (0-0.4); Eosinophil % 0.9 % (0.00-5.0); Eosinophil (Absolute #) 0.06 (0-0.5); Hematocrit 36.3 % (35-47); Hemoglobin 12.3 gm/dl (12.0-16.0); Lymphocyte (Absolute #) 0.89 (1.0-4.6); Lymphocytes % 13.8 % (24.0-44.0); Mean Corpuscular Hemoglobin 32.2 pg (26-32); Mean Corpuscular Hgb Concent. 33.9 g/dl (32-36); Mean Platelet Volume 9.8 fl (7.5-11.0); Monocyte (Absolute #) 0.84 (0.0-1.3); Neutrophil % 72.1 % (36.0-66.0); Platelet Count 116 K/mm3 (150-450); Red Blood Count 3.82 M/mm3 (4.1-5.4); Red Cell Distribution Width 15.9 % (11.5-14.0); White Blood Count 6.5 K/mm3 (4.0-10.5)
[2021-11-09 05:44] LABS: ANION GAP 4.8 MEQ/L (5-15); BLOOD UREA NITROGEN 9 mg/dL (7-17); CHLORIDE 112 mmol/L (98-107); Calcium 6.7 mg/dL (8.4-10.2); Carbon Dioxide 23 mmol/L (22-30); Creatinine 1 0.67 mg/dL (0.52-1.04); EST GLOMERULAR FILTRATION RATE > 60.0 ML/MIN; Glucose 122 mg/dL (74-106); Potassium 3.1 mmol/L (3.5-5.1); SODIUM 137 mmol/L (137-145)
[2021-11-09] MEDS: ZOVIRAX IV SCH ×3 (06:35→21:41)
[2021-11-09] MEDS: SODIUM CHLORIDE 0.9% IV SCH ×3 (06:35→21:41)
[2021-11-09] MEDS: Carafate SUSPENSION 1000 MG/10 ML PO SCH ×4 (07:53→21:30)
[2021-11-09] MEDS: XYLOCAINE HCl Viscous MM PRN ×3 (09:15→21:32)
[2021-11-09] MEDS: Advair Hfa 115/21 Common canister IH SCH ×2 (10:34→19:55)
[2021-11-09] MEDS: DUONEB 0.5-3 MG/3 ml Neb IH SCH ×3 (10:34→18:55)
[2021-11-09] MEDS: Pepcid 20 MG VIAL IV SCH ×2 (12:00→21:31)
[2021-11-09] MEDS: Klor Con 10 MEQ PO SCH (12:01)
[2021-11-09] MEDS: Mucinex 600MG ER Tabs PO SCH ×2 (12:01→21:28)
[2021-11-09] MEDS: Cozaar 50 MG PO SCH ×2 (12:01→21:30)
[2021-11-09] MEDS: Calcium 500MG W/Vit D Tablet PO SCH ×2 (12:01→21:28)
[2021-11-09] MEDS: THERAGRAN MULTIVITAMIN PO SCH (12:02)
[2021-11-09] MEDS: COREG 12.5 MG PO SCH ×2 (12:02→21:28)
[2021-11-09] MEDS: Dextrose 5%-NS IV Solution 1000 ML 1,000 ML IV SCH (12:04)
[2021-11-09] MEDS: Bactroban OINTMENT TP SCH ×3 (12:05→21:29)
[2021-11-09] MEDS: MARY'S MAGIC MOUTHWASH PO SCH ×4 (12:06→21:31)
[2021-11-09] MEDS: NORVASC 5 MG PO SCH (12:22)
--- NOTE | 2021-11-09 14:10 | PCM.NOTE ---
Date and Time: 11/09/21 1409 Subjective Assessment: doing little better - Review of Systems Constitutional: No Fever, No Chills Eyes: No Symptoms Ears, Nose, & Throat: No Symptoms Respiratory: No Cough, No Short Of Breath Cardiac: No Chest Pain, No Edema, No Syncope Abdominal/Gastrointestinal: No Abdominal Pain, No Nausea, No Vomiting, No Diarrhea Genitourinary Symptoms: No Dysuria Musculoskeletal: No Back Pain, No Neck Pain Skin: No Rash Neurological: No Dizziness, No Focal Weakness, No Sensory Changes Psychological: No Symptoms Endocrine: No Symptoms Hematologic/Lymphatic: No Symptoms Immunological/Allergic: No Symptoms Objective Exam General Appearance: no apparent distress, alert Neurologic Exam: alert, oriented x 3, cooperative, normal mood/affect, nml cerebellar function, sensation nml, No motor deficits Skin Exam: normal color, warm, dry Eye Exam: PERRL, EOMI, eyes nml inspection Ears, Nose, Throat Exam: normal ENT inspection, pharynx normal, moist mucous membranes Neck Exam: normal inspection, non-tender, supple, full range of motion Respiratory Exam: normal breath sounds, lungs clear, No respiratory distress Cardiovascular Exam: regular rate/rhythm, normal heart sounds Gastrointestinal/Abdomen Exam: soft, No tenderness, No mass Extremity Exam: normal inspection, normal range of motion Back Exam: normal inspection, normal range of motion, No CVA tenderness, No vertebral tenderness Pelvic Exam: deferred Rectal Exam: deferred OBJECTIVE DATA Vital Signs: Vital Signs - 24 hr Temp Pulse Resp BP Pulse Ox 11/09/21 12:00 98.5 F 59 L 16 132/63 94 L 11/09/21 11:17 59 L 18 94 L 11/09/21 07:53 97.9 F 65 20 137/73 95 11/09/21 04:00 97.9 F 65 20 137/73 95 11/08/21 23:39 98.4 F 67 19 142/70 95 11/08/21 20:00 98.1 F 63 18 122/58 96 11/08/21 18:52 72 18 95 11/08/21 16:00 96.9 F 69 15 99/52 96 11/08/21 15:12 66 20 94 L Pain Assessment - Last Documented Pain Intensity 6 Pain Scale Used 0-10 Pain Scale Intake and Output: Intake & Output 11/07/21 11/08/21 11/09/2122 11:59 11:59 11:59 11:59 Intake Total 8475 1909 2831 120 Output Total 273 950 750 Balance 9767 6429 2081 120 Lab Results: Lab Results-Last 24 Hours 11/09/21 11/09/21 Range/Units 05:03 05:03 WBC 6.5 (4.0-10.5) K/mm3 RBC 3.82 L (4.1-5.4) M/mm3 Hgb 12.3 (12.0-16.0) gm/dl Hct 36.3 (35-47) % MCV 95.0 (78-100) fl MCH 32.2 H (26-32) pg MCHC 33.9 (32-36) g/dl RDW 15.9 H (11.5-14.0) % Plt Count 116 L D (150-450) K/mm3 MPV 9.8 (7.5-11.0) fl Gran % 72.1 H (36.0-66.0) % Eos # (Auto) 0.06 (0-0.5) Absolute Lymphs (auto) 0.89 L (1.0-4.6) Absolute Monos (auto) 0.84 (0.0-1.3) Lymphocytes % 13.8 L (24.0-44.0) % Monocytes % 13.0 H (0.0-12.0) % Eosinophils % 0.9 (0.00-5.0) % Basophils % 0.2 (0.0-0.4) % Absolute Granulocytes 4.66 (1.4-6.9) Basophils # 0.01 (0-0.4) Sodium 137 (137-145) mmol/L Potassium 3.1 L (3.5-5.1) mmol/L Chloride 112 H (98-107) mmol/L Carbon Dioxide 23 (22-30) mmol/L Anion Gap 4.8 L (5-15) MEQ/L BUN 9 (7-17) mg/dL Creatinine 0.67 (0.52-1.04) mg/dL Estimated GFR > 60.0 ML/MIN Glucose 122 H (74-106) mg/dL Calcium 6.7 L (8.4-10.2) mg/dL Multi-Disciplinary Progress Notes: Multi-Disciplinary Progress Notes 11/09/21 14:04 Case Management Note by Jennifer Laguerre CALL MMM TO BE SURE THEY WILL BE ABLE TO GET ACYCLOVIR 5% OINTMENT- NO ANSWER-LM Initialized on 11/09/21 14:04 - END OF NOTE 11/09/21 13:02 Case Management Note by Jennifer Laguerre S/W PATIENT- SHE WOULD STILL LIKE TO TO GO TO [facility] AT TIME OF DC. S/W SELENE AT [facility]- THEY ACCEPT PATIENT AND WILL B READY AT TIME OF DC Initialized on 11/09/21 13:02 - END OF NOTE 11/09/21 10:42 Physical Therapy Note by [email or web address] PT. IN BED UPON P.T. ARRIVAL TO ROOM. C/O ORAL AND THROAT PN AT 07/31 D/T HERPES OUTBREAK. MEDS ARE BEING ADJUSTED TO MANAGE. PT. AGREEABLE TO GET UP IN CHAIR. ASSISTED X RAY EXAMIN[employer] AIR[employer] W/ MOBILITY FOR BATH. SUPINE TO SIT - MOD-MAX ASSIST X 1. SIT TO STAND - MOD ASSIST X 2. PT. TENDS TO MOUTH BREATHE SO NEEDED CUES TO INCREASE NASAL INSPIRATION. O2 SATS 96% ON RA. PT. BEBE TO STAND W/ RW AND MIN ASSIST FOR ~ 2' TO PERFORM PERICARE. PT. AMBULATED ~ 5' W / RW AND MIN-MOD ASSIST X 1 W/ X RAY EX[employer] ASSISTING W/ IV. PT. REPORTS SHE FEELS WEAK AND IS FEARFUL OF FALLING SHE HAS FALLEN AT HOME. PT. REQUIRES V.C.TO STAND W/ ERECT POSTURE AT WALKER. PERFORMED SEATED LE EX'S OF LAQS, MARCHES, HEEL SLIDES, ABD SLIDES, ANKLE PUMPS, AND SLRS. ADVISED PT. TO PERFORM THESE FREQUENTLY IN CHAIR AND BED TO INITIATE STRENGTHENING. WILL CONT. PT 5X/WK UNTIL TO D/C TO ADDRESS WEAKNESS AND FUNCTIONAL DEFICITS AND PREP FOR REHAB STAY. Initialized on 11/09/21 10:42 - END OF NOTE 11/09/21 10:20 Case Management Note by Jennifer Laguerre MMM WILL BE OVER THIS AM TO ASSESS PATIENT FOR ADMISSION Initialized on 11/09/21 10:20 - END OF NOTE 11/08/21 14:23 Nutrition Note by Ray,Nesha F/u Note: Note diet resumed to heart healthy; po intake 25%. Pt with sore mouth. no recent weight. Labs 11/07= K+ 3.3, glu 122, BUN 18, alb 1.7, hgb 11.4, hct 34.0. goal to resume po intake met. new goal #1) increase po intake >25%. Will con't to monitor and f/u prn. ADDISON Blake Initialized on 11/08/21 14:23 - END OF NOTE Assessment/Plan (1) Duodenal ulcer due to nonsteroidal anti-inflammatory drug (NSAID) Current Visit: Yes Status: Acute Code(s): K26.9 - DUODENAL ULCER, UNSP ACUTE OR CHRONIC, W/O HEMOR OR PERF; T39.395A - ADVERSE EFFECT OF NONSTEROIDAL ANTI-INFLAMMATORY DRUGS, INIT (2) Hematochezia Current Visit: Yes Status: Acute Code(s): K92.1 - MELENA (3) Anemia Current Visit: Yes Status: Acute Qualifiers: Anemia type: iron deficiency Iron deficiency anemia type: chronic blood loss Qualified Code(s): D50.0 - Iron deficiency anemia secondary to blood loss (chronic) Code(s): D64.9 - ANEMIA, UNSPECIFIED (4) Symptomatic anemia Current Visit: Yes Status: Acute Code(s): D64.9 - ANEMIA, UNSPECIFIED
[2021-11-09] MEDS ORDERED: Zovirax INJ IV ONE (14:47)
[2021-11-09] MEDS: ZOCOR 20MG PO SCH (21:28)
[2021-11-10] MEDS: XYLOCAINE HCl Viscous MM PRN ×2 (00:16→05:42)
[2021-11-10] MEDS: Hydromorphone 1 mg/ml Injection IV PRN (00:23)
[2021-11-10] MEDS ORDERED: DUONEB 0.5-3 MG/3 ml Neb IH ONE (00:28)
[2021-11-10] MEDS: DUONEB 0.5-3 MG/3 ml Neb IH SCH ×2 (00:30→05:30)
[2021-11-10] MEDS: ZOVIRAX IV SCH (05:36)
[2021-11-10] MEDS: SODIUM CHLORIDE 0.9% IV SCH (05:36)
[2021-11-10] MEDS: Advair Hfa 115/21 Common canister IH SCH (05:56)
[2021-11-10] MEDS: Carafate SUSPENSION 1000 MG/10 ML PO SCH (08:05)
[2021-11-10 08:09] VITALS: BP 139/63; PULSE 69; O2SAT 96
--- NOTE | 2021-11-10 10:17 | XRAY ---
Indication: Wheezing. Comparison: November 05, 2021. Portable chest again hyperinflated with new minimal bibasilar infiltrates versus atelectasis. Upper lungs again demonstrate a few tiny calcified granulomas. 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
[2021-11-10] MEDS: Calcium 500MG W/Vit D Tablet PO SCH (10:28)
[2021-11-10] MEDS: Mucinex 600MG ER Tabs PO SCH (10:28)
[2021-11-10] MEDS: Cozaar 50 MG PO SCH (10:28)
[2021-11-10] MEDS: Klor Con 10 MEQ PO SCH (10:28)
[2021-11-10] MEDS: THERAGRAN MULTIVITAMIN PO SCH (10:28)
[2021-11-10] MEDS: COREG 12.5 MG PO SCH (10:28)
[2021-11-10] MEDS: MARY'S MAGIC MOUTHWASH PO SCH (10:29)
[2021-11-10] MEDS: Pepcid 20 MG VIAL IV SCH (10:29)
[2021-11-10] MEDS: NORVASC 5 MG PO SCH (10:29)
[2021-11-10] MEDS: Bactroban OINTMENT TP SCH (10:31)
[2021-11-10] MEDS ORDERED: NON-FORMULARY BULK ITEM TOP SCH (11:00)
--- NOTE | 2021-11-10 16:55 | PCM.DS ---
Discharge Summary Date of Admission: 11/04/21 11:00 Admitting Physician: MARIUSZ LINARES Consults: Consults on Case 11/04/21 13:19 Consult Surgery ROUTINE Primary Care Provider: MARIUSZ LINARES Allergies Allergies iodine Allergy (Severe, Verified 10/24/21 11:11) [facility] Summary - Hospital Course Hospital Course: Chief Complaint Diagnosis abdominal pain epigastric area for 2-3 days Allergies Allergy/AdvReac Type Severity Reaction Status Date / Time iodine Allergy Severe Hives Verified 10/24/21 11:11 Vital Signs (Last 24 hours) Temp Pulse Resp BP Pulse Ox 11/10/21 08:00 99.3 F 69 16 139/63 96 11/10/21 04:00 98.0 F 68 16 119/64 97 11/10/21 00:30 72 20 94 L 11/10/21 00:00 98.2 F 63 18 118/57 95 11/09/21 20:00 98.2 F 65 18 130/67 98 11/09/21 18:59 67 20 94 L Home Medications Medication Instructions Recorded Confirmed Last Taken Type Acyclovir 400 mg PO TID 7 Days #21 tablet 11/10/21 Unknown Rx Acyclovir Cream 5 gm [Zovirax 1 applic TP 5XD #1 11/10/21 Unknown Rx CREAM 5 GM] Famotidine 20 mg [Pepcid 20 20 mg PO Q12H #60 tablet 11/10/21 Unknown Rx MG] Lidocaine HCl Viscous 5 ml MM Q3H/PRN PRN ml 11/10/21 Unknown Rx [XYLOCAINE HCl Viscous *] Mupirocin [Bactroban 1 applic TP TID 11/10/21 Unknown Rx OINTMENT] Nystatin/TCN/Hc/Diphenhydram 5 ml PO QID #1 11/10/21 Unknown Rx [Nasra's Magic Mouthwash] PANTOPRAZOLE 40 mg Tablet 40 mg PO QAM #30 tab 11/10/21 Unknown Rx [Protonix 40MG Tablet] Sucralfate 1000 mg/10 ml 1,000 mg PO ACHS ml 11/10/21 Unknown Rx [Carafate SUSPENSION 1000 MG/10 ML] Current Medications Discontinued Medications Generic Name Dose Route Start Last Admin Trade Name Jacqueline PRN Reason Stop Dose Admin Acetaminophen 650 mg 11/04/21 11:08 11/04/21 12:32 Acetaminophen 325 Mg Tablet PO 11/04/21 11:09 650 mg PRIOR TO BLOOD ONE Administration Acetaminophen 650 mg 11/05/21 04:22 11/05/21 05:39 Acetaminophen 325 Mg Tablet PO 11/05/21 04:23 650 mg PRIOR TO BLOOD ONE Administration Acyclovir Sodium Confirm 11/09/21 14:47 Acyclovir Sodium 500 Mg/Vial Vial Administered 11/09/21 14:48 Dose 500 mg IV .STK-MED ONE Albuterol Sulfate 2.5 mg 11/04/21 15:00 11/06/21 02:43 Albuterol Sulfate 2.5 Mg/[address] [facility] 12/04/21 14:59 Not Given QIDRT MICKY Albuterol/Ipratropium 3 ml 11/04/21 15:00 11/10/21 05:30 Ipratropium/Albuterol Sulfate 3 Ml Ampul.Neb 12/04/21 14:59 3 ml QIDRT [facility] Administration Albuterol/Ipratropium Confirm 11/10/21 00:28 Ipratropium/Albuterol Sulfate 3 Ml Ampul.Neb Administered 11/10/21 00:29 Dose 3 ml IH .STK-MED ONE Alendronate Sodium 70 mg 11/06/21 06:00 Alendronate Sodium 70 Mg Tablet PO 12/06/21 05:59 WEEKLY [facility] Amlodipine Besylate 2.5 mg 11/04/21 13:00 11/10/21 10:29 Amlodipine Besylate 5 Mg Tablet PO 12/04/21 12:59 2.5 mg DAILY [facility] Administration Calcium Carbonate 1 tab 11/04/21 22:00 11/10/21 10:28 Calcium Carbonate 500 Mg/Vitamin D 1 Tab Tablet PO 12/04/21 21:59 1 tab BID [facility] Administration Carvedilol 25 mg 11/04/21 13:00 11/10/21 10:28 Carvedilol 12.5 Mg Tablet PO 12/04/21 12:59 25 mg BID MICKY Administration Diphenhydramine HCl 25 mg 11/04/21 11:08 11/04/21 12:32 Diphenhydramine Hcl 25 Mg Capsule PO 11/04/21 11:09 25 mg PRIOR TO BLOOD ONE Administration Diphenhydramine/Hydrocorti/Nystatin 5 ml 11/06/21 10:00 11/10/21 10:29 Nystatin/Tcn/Pred/Diphenhydramin 240 Ml Bottle PO 12/06/21 09:59 5 ml QID MICKY Administration Famotidine 20 mg 11/04/21 13:00 11/10/21 10:29 Famotidine 20 Mg/1 Vial IV 12/04/21 12:59 20 mg Q12HT MICKY Administration Furosemide 20 mg 11/04/21 13:00 Furosemide 20 Mg Tablet PO 12/04/21 12:59 DAILY PRN PRN NEEDED FOR WATER GAIN Guaifenesin 1,200 mg 11/04/21 22:00 11/10/21 10:28 Guaifenesin 600 Mg Tablet Er PO 12/04/21 21:59 1,200 mg BID MICKY Administration Hydromorphone HCl 0.5 mg 11/06/21 10:23 11/09/21 05:09 Hydromorphone 1 Mg/1ml Inj 1 Mg/Ml Syringe IV 11/11/21 10:22 0.5 mg Q4H PRN PRN Administration PAIN Hydromorphone HCl 0.5 mg 11/09/21 08:52 11/10/21 00:23 Hydromorphone 1 Mg/1ml Inj 1 Mg/Ml Syringe IV 11/14/21 08:49 0.5 mg Q3H PRN PRN Administration PAIN Sodium Chloride 1,000 mls @ 200 mls/hr 11/04/21 04:15 11/06/21 02:43 Sodium Chloride 0.9% 1000 Ml IV 12/04/21 04:14 Not Given .Q5H MICKY Sodium Chloride Confirm 11/04/21 04:30 Sodium Chloride 0.9% 1000 Ml Administered 11/04/21 04:31 Dose 1,000 mls @ ud .ROUTE .STK-MED ONE Sodium Chloride Confirm 11/04/21 07:44 Sodium Chloride 0.9% 1000 Ml Administered 11/04/21 07:45 Dose 1,000 mls @ ud .ROUTE .STK-MED ONE Sodium Chloride 1,000 mls @ 50 mls/hr 11/04/21 11:08 11/06/21 01:58 Sodium Chloride 0.9% 1000 Ml IV 12/04/21 11:07 Not Given .Q20H MICKY Acyclovir Sodium 500 mg/ 100 mls @ 100 mls/hr 11/04/21 12:15 11/06/21 12:00 Sodium Chloride IV 12/04/21 12:14 100 mls/hr Q12HT MICKY Administration Pantoprazole Sodium 80 mg/ 500 mls @ 50 mls/hr 11/04/21 13:00 11/09/21 21:54 Sodium Chloride IV 12/04/21 12:59 50 ml/hr .Q10H MICKY 50 mls/hr Administration Sodium Chloride 500 mls @ 500 mls/hr 11/05/21 00:39 11/05/21 00:44 Sodium Chloride 0.9% 500 Ml IV 11/05/21 01:38 500 mls/hr .Q1H ONE Administration Dextrose/Sodium Chloride 1,000 mls @ 50 mls/hr 11/06/21 10:30 11/09/21 12:04 Dextrose 5%-Ns Iv Solution 1000 Ml IV 12/06/21 10:29 50 mls/hr .Q20H MICKY Administration Acyclovir Sodium 500 mg/ 100 mls @ 100 mls/hr 11/06/21 22:00 11/10/21 05:36 Sodium Chloride IV 12/06/21 21:59 100 mls/hr Q8HT MIKCY Administration Sodium Chloride 500 mls @ 50 mls/hr 11/07/21 10:45 11/07/21 11:09 Sodium Chloride 0.9% 500 Ml IV 12/07/21 10:44 50 mls/hr .Q10H MICKY Administration Sodium Chloride Confirm 11/07/21 21:43 Sodium Chloride 0.9% 1000 Ml Administered 11/07/21 21:44 Dose 1,000 mls @ ud .ROUTE .STK-MED ONE Lidocaine HCl Confirm 11/04/21 07:03 Lidocaine Hcl 2% 20 Ml Mdv Administered 11/04/21 07:04 Dose 5 ml .ROUTE .STK-MED ONE Lidocaine HCl 10 ml 11/09/21 08:54 11/09/21 12:11 Lidocaine Hcl Viscous 1 Ml MM 12/09/21 08:53 10 ml Q3H/PRN PRN Administration PAIN Lidocaine HCl 5 ml 11/09/21 12:50 11/10/21 05:42 Lidocaine Hcl Viscous 1 Ml MM 12/09/21 08:53 5 ml Q3H/PRN PRN Administration PAIN Lidocaine/Epinephrine Confirm 11/05/21 13:24 Lidocaine Hcl/Epinephrine 2% 20 Ml Vial Mpf Administered 11/05/21 13:25 Dose 20 ml .ROUTE .STK-MED ONE Losartan Potassium 25 mg 11/04/21 13:00 11/10/21 10:28 Losartan Potassium 50 Mg Tablet PO 12/04/21 12:59 25 mg BID MICKY Administration Miscellaneous Medication 1 each 11/06/21 10:00 11/10/21 10:29 No Nsaids/As/Plavix MC 12/06/21 09:59 1 each DAILY MICKY Administration Multivitamins Therapeutic 1 tab 11/05/21 10:00 11/10/21 10:28 Multivitamins,Therapeutic 1 Tab Tab PO 12/05/21 09:59 1 tab DAILY MICKY Administration Mupirocin 1 gm 11/06/21 10:00 11/06/21 15:43 Mupirocin 22 Gm Tube Ointment TP 12/06/21 09:59 Not Given TID MICKY Mupirocin 0 gm 11/06/21 12:00 11/10/21 10:31 Mupirocin 22 Gm Tube Ointment TP 12/06/21 11:59 22 gm TID MICKY Administration Non-Formulary Medication 1 gm 11/04/21 16:30 Triamcinolone Acetonide [Kenalog In Orabase] MM 12/04/21 16:29 AC MICKY Non-Formulary Medication 5 gm 11/04/21 12:14 Triamcinolone Acetonide [Kenalog In Orabase] DT UD PRN PAIN Non-Formulary Medication 1 each 11/06/21 10:20 11/06/21 12:21 Pharmacy Dosing Request MC 11/06/21 10:21 1 each STAT ONE Administration Acyclovir Ointment 5 0 each 11/10/21 11:00 11/10/21 10:30 % 15gm TOP 12/10/21 10:59 1 each 5XD MICKY Administration Ondansetron HCl 4 mg 11/05/21 00:36 11/09/21 05:09 Ondansetron Hcl 4 Mg/2 Ml Vial IV 12/05/21 00:35 4 mg Q4H/PRN PRN Administration VOMITING Pantoprazole Sodium 40 mg 11/04/21 04:56 11/04/21 05:09 Pantoprazole 40 Mg Vial IV 11/04/21 04:57 40 mg STAT ONE Administration Pantoprazole Sodium Confirm 11/04/21 05:08 Pantoprazole 40 Mg Vial Administered 11/04/21 05:09 Dose 40 mg IV .STK-MED ONE Pantoprazole Sodium Confirm 11/06/21 05:21 Pantoprazole 40 Mg Vial Administered 11/06/21 05:22 Dose 80 mg IV .STK-MED ONE Phenylephrine HCl Confirm 11/05/21 13:24 Phenylephrine 10 Mg/Ml Vial Administered 11/05/21 13:25 Dose 10 mg .ROUTE .STK-MED ONE Potassium Chloride 20 meq 11/04/21 13:00 11/10/21 10:28 Potassium Chloride 10 Meq Tablet PO 12/04/21 12:59 20 meq DAILY MICKY Administration Prednisone 10 mg 11/04/21 13:00 11/05/21 10:13 Prednisone 10 Mg Tablet PO 12/04/21 12:59 Not Given DAILY MICKY Propofol Confirm 11/05/21 13:24 Propofol 10 Mg/Ml 20ml Vial Administered 11/05/21 13:25 Dose 200 mg IV .STK-MED ONE Fluticasone/Salmeterol 2 puff 11/04/21 19:00 11/10/21 05:56 Fluticasone/Salmeterol 115/21 - 120 Puff Common Canister IH 12/04/21 18:59 Not Given BIDRT MICKY Simvastatin 40 mg 11/04/21 22:00 11/09/21 21:28 Simvastatin 20 Mg Tablet PO 12/04/21 21:59 40 mg HS MICKY Administration Sucralfate 1 g 11/07/21 11:30 Sucralfate 1 G Tablet PO 12/07/21 11:29 ACHS MICKY Sucralfate 1,000 mg 11/07/21 11:30 11/10/21 08:05 Sucralfate 1000 Mg/10 Ml Suspension PO 12/07/21 11:29 1,000 mg ACHS MICKY Administration Intake & Output (Last 24 hours) 11/08/21 11/09/21 11/10/21 11/11/21 11:59 11:59 11:59 11:59 Intake Total 6799 2831 3091 Output Total 950 750 950 Balance 5849 2081 2141 Orders (Last 24 hours) Category Date Time Status Discharge Routine Discharge 11/10/21 Ordered Discharge/Telephone Order Routine Discharge 11/10/21 Active CHEST 1 VIEW (PORTABLE) Urgent Exams 11/10/21 09:26 Completed Albuterol/Ipratropium 3ml Neb* [DUONEB 0.5-3 MG/3 ml Med 11/10/21 00:28 Discontinued Neb] 3 ml IH .STK-MED ONE Non-Formulary Drug [Non-Formulary Bulk Item] Med 11/10/21 11:00 Discontinued See Dose Instructions TOP 5XD Patient Care Notes (Last 24 hours) 11/10/21 12:04 Nursing Note by Alba Meza report called to [facility] at [facility]. Initialized on 11/10/21 12:04 - END OF NOTE - Vitals & Intake/Output Vital Signs: Vital Signs Temperature 99.3 F 11/10/21 08:00 Pulse Rate 69 11/10/21 08:00 Respiratory Rate 16 11/10/21 08:00 Blood Pressure 139/63 11/10/21 08:00 O2 Sat by Pulse Oximetry 96 11/10/21 08:00 Intake & Output: Intake & Output 11/08/21 11/09/21 11/10/21 11/11/21 11:59 11:59 11:59 11:59 Intake Total 6799 2831 3091 Output Total 950 750 950 Balance 5849 2081 2141 - Lab Result Diagrams: 11/09/21 05:03 11/09/21 05:03 - Radiology Exams Ordered Rad Exams-Entire Visit: Radiology Procedures Category Date Time Status CHEST 1 VIEW (PORTABLE) Urgent Exams 11/10/21 09:26 Completed - Procedures and Test Procedures and Tests throughout Hospitalization: Therapy Orders & Screens 11/04/21 16:09 Oxygen NASAL CANNULA 2 lpm Comment: Diagnosis: Anemia requiring transfusion, GI bleed 11/05/21 07:00 Respiratory Therapy Assessment DAILY Comment: Diagnosis: Anemia requiring transfusion, GI bleed 11/05/21 10:08 EKG STAT Comment: Diagnosis: abdominal pain epigastric area for 2-3 days 11/08/21 08:53 OT Eval and Treat ( Order) ROUTINE Comment: Consulting Provider: Physician Instructions: Reason For Exam: Diagnosis: abdominal pain epigastric area for 2-3 days PT Eval & Treat (MD Order) ONCE Reason for Eval:: WEAKNESS Diagnosis: abdominal pain epigastric area for 2-3 days Discharge Exam General Appearance: no apparent distress, alert Neurologic Exam: alert, oriented x 3, cooperative, normal mood/affect, nml cereb ellar function, sensation nml, No motor deficits Eye Exam: PERRL, EOMI, eyes nml inspection Ears, Nose, Throat Exam: normal ENT inspection, pharynx normal, moist mucous membranes, other (perioral ulcers) Neck Exam: normal inspection, non-tender, supple, full range of motion Respiratory Exam: normal breath sounds, lungs clear, No respiratory distress Cardiovascular Exam: regular rate/rhythm, normal heart sounds Gastrointestinal/Abdomen Exam: soft, No tenderness, No mass Pelvic Exam: deferred Rectal Exam: deferred Back Exam: normal inspection, normal range of motion, No CVA tenderness, No vertebral tenderness Extremity Exam: normal inspection, normal range of motion Skin Exam: normal color, warm, dry Final Diagnosis/Problem List - Final Discharge Diagnosis/Problem (1) Duodenal ulcer due to nonsteroidal anti-inflammatory drug (NSAID) Status: Acute Code(s): K26.9 - DUODENAL ULCER, UNSP ACUTE OR CHRONIC, W/O HEMOR OR PERF; T39.395A - ADVERSE EFFECT OF NONSTEROIDAL ANTI-INFLAMMATORY DRUGS, INIT (2) Hematochezia Status: Acute Code(s): K92.1 - MELENA (3) Anemia Status: Acute Code(s): D64.9 - ANEMIA, UNSPECIFIED (4) Symptomatic anemia Status: Acute Code(s): D64.9 - ANEMIA, UNSPECIFIED - Discharge Discharge Date: 11/10/21 Disposition: DC TO [facility] Condition: Stable Prescriptions: New Acyclovir 400 mg PO TID 7 Days #21 tablet Mupirocin [Bactroban OINTMENT] 1 applic TP TID Sucralfate 1000 mg/10 ml [Carafate SUSPENSION 1000 MG/10 ML] 1,000 mg PO ACHS ml Nystatin/TCN/Hc/Diphenhydram [Nasra's Magic Mouthwash] 5 ml PO QID #1 PANTOPRAZOLE 40 mg Tablet [Protonix 40MG Tablet] 40 mg PO QAM #30 tab Lidocaine HCl Viscous [XYLOCAINE HCl Viscous *] 5 ml MM Q3H/PRN PRN ml PRN Reason: Pain Acyclovir Cream 5 gm [Zovirax CREAM 5 GM] 1 applic TP 5XD #1 Famotidine 20 mg [Pepcid 20 MG] 20 mg PO Q12H #60 tablet Continue Potassium Chloride [Klor-Con] 20 meq PO DAILY Losartan Potassium [Cozaar] 25 mg PO BID Furosemide [Lasix] 20 mg PO DAILY Carvedilol [Coreg] 25 mg PO BID Amlodipine Besylate [Norvasc] 2.5 mg PO DAILY Rosuvastatin Calcium [Crestor] 20 mg PO HS Multivitamin [Multiple Vitamins] 1 each PO DAILY Non-Formulary Drug [Non-Formulary Bulk Item] 1 inh IH BID Thai/D3/Mag11/Zinc/Global Ceo/Chuy/Bor [Caltrate 600+D Plus Tablet] 1 tablet PO BID Albuterol/Ipratropium 3ml Neb* [DUONEB 0.5-3 MG/3 ml Neb] 3 ml IH QID #120 each Guaifenesin 600 mg ER [Mucinex 600MG ER Tabs] 1,200 mg PO BID tablet Discontinued Famotidine 20 mg [Pepcid 20 MG] 20 mg PO BID Clopidogrel Bisulfate 75 mg [PLAVIX 75 MG Tablet] 75 mg PO DAILY Aspirin EC 81 mg [Ecotrin 81 mg] 81 mg PO DAILY Albuterol 2.5 mg/3 ml Neb [Proventil 2.5 mg/3 ml Neb] 2.5 mg IH QID Alendronate Sodium 70 mg [Fosamax 70 MG] 70 mg PO WEEKLY Prednisone 10 mg [Deltasone 10 mg] 10 mg PO DAILY #5 tablet Prednisone 20 mg [Deltasone 20 mg] 20 mg PO DAILY #18 tablet Triamcinolone Acetonide [Kenalog in Orabase] 1 gm MM AC 5 Days #5 Triamcinolone Acetonide [Kenalog in Orabase] 5 gm DT UD PRN #1 PRN Reason: Pain Additional Instructions: [facility] ORDERS: HEART HEALTHY DIET PT/OT EVAL AND TREAT ENSURE PATIENT TAKES HER NEB TREATMENTS NO PLAVIX, ASA, NSAIDS, STEROID TABS SEE ATTACHED MED LIST Forms: Transfer Record [facility]
== END 2021-11-10 11:59 | DRG 384 ==
LOC: ED 03:36 → MED SURG 11:00
PROVIDERS: ADMIT General Practice; ATTEND General Practice
PROC: 0DB68ZX Excision of Stomach, Via Natural or Artificial Opening Endoscopic, Diagnostic (ICD-10-PCS; principal; 2021-11-05)
DX: K26.9 Duodenal ulcer, unspecified as acute or chronic, without hemorrhage or perforation (principal); T39.395A Adverse effect of other nonsteroidal anti-inflammatory drugs [NSAID], initial encounter; K92.1 Melena; D64.9 Anemia, unspecified; D50.0 Iron deficiency anemia secondary to blood loss (chronic); K29.70 Gastritis, unspecified, without bleeding; I25.10 Atherosclerotic heart disease of native coronary artery without angina pectoris; E78.00 Pure hypercholesterolemia, unspecified; I10 Essential (primary) hypertension; J44.9 Chronic obstructive pulmonary disease, unspecified; J34.2 Deviated nasal septum; W18.30XA Fall on same level, unspecified, initial encounter; Z79.899 Other long term (current) drug therapy; Z20.828 Contact with and (suspected) exposure to other viral communicable diseases
CPT/HCPCS: 0241U; 36415; 36430; 43239; 51702; 70450; 70486; 71045; 72125; 74176; 76937; 76942; 80048; 80053; 81001; 83605; 84484; 85014; 85018; 85025; 85027; 86850; 86900; 86901; 86922; 93005; 93041; 94640; 94760; 94762; 96360; 96361; 96374; 97110; 97161; 97165; 97530; 99285; 99291; P9016; 36556; 88305; 88312; 99100; 99140; J0133; J1170; J2370; J2405; J2704; A9270-GY

== ENCOUNTER 2022-01-07 13:49 | Observation (INO) | payer MEDICARE, BC ==
[2022-01-07] MEDS ORDERED: Sodium Chloride 0.9% 1000 ML 1,000 ML IV STA (14:10)
--- NOTE | 2022-01-07 14:19 | ERPHSYRPT ---
- History of Present Illness Time Seen by Provider: 01/07/22 14:17 Source: patient, EMS Patient Subjective Stated Complaint: pt here for sudden onset of diaphorsis, no pain, co weakness. BS 95 per ems Triage Nursing Assessment: pt alert, resp easy,skin warm, moist, pale, face mask applied, no edema noted Physician History: Patient is 76-year-old female with significant past medical history of hypertension care gastric ulcer coronary artery disease s/p coronary artery bypass graft was in her usual state of health today suddenly she become di aphoretic weak and short of breath. She felt like she is going to pass out so she called ambulance and patient was brought into the emergency room. In the emergency room patient is alert awake oriented to time place and person but very weak and lethargic. Patient is able to answer all the questions. Patient denies any fever chills blood in the urine or blood in the stool or chest pain. Timing/Duration: today Severity: moderate Associated Symptoms: diaphoresis, weakness Allergies/Adverse Reactions: iodine Allergy (Severe, Verified 01/07/22 13:57) Hives Home Medications: Amlodipine Besylate [Norvasc] 2.5 mg PO DAILY 08/06/20 [History] Carvedilol [Coreg] 25 mg PO BID 08/06/20 [History] Furosemide [Lasix] 20 mg PO DAILY 08/06/20 [History] Losartan Potassium [Cozaar] 25 mg PO BID 08/06/20 [History] Potassium Chloride [Klor-Con] 20 meq PO DAILY 08/06/20 [History] Rosuvastatin Calcium [Crestor] 20 mg PO HS 08/06/20 [History] Multivitamin [Multiple Vitamins] 1 each PO DAILY 05/23/21 [History] Thai/D3/Mag11/Zinc/Asphalt Blender/Chuy/Bor [Caltrate 600+D Plus Tablet] 1 tablet PO BID 10/16/21 [History] Non-Formulary Drug [Non-Formulary Bulk Item] 1 inh IH BID 10/16/21 [History] Hx Tetanus, Diphtheria Vaccination/Date Given: No (unknown) Hx Influenza Vaccination/Date Given: Yes Hx Pneumococcal Vaccination/Date Given: Yes Immunizations Up to Date: Yes Travel Risk - International Travel Have you traveled outside of the country in past 3 weeks: No - Coronavirus Screening Are you exhibiting any of the following symptoms?: No Close contact with a COVID-19 positive Pt in past 14-21 Days: No - Vaccine Status Have you recieved a Covid-19 vaccination: Yes [employer]ing [employer]ter: Moderna - Vaccination Dates Date of 2cond Vaccination (if applicable): 02/01/2021 Comment: got the booster a few days ago - Review of Systems Constitutional: Lethargy, Weakness, No Fever, No Chills Eyes: No Symptoms Ears, Nose, & Throat: No Symptoms Respiratory: No Cough, No Dyspnea Cardiac: No Chest Pain, No Edema, No Syncope Abdominal/Gastrointestinal: No Abdominal Pain, No Nausea, No Vomiting, No Diarrhea Genitourinary Symptoms: No Dysuria Musculoskeletal: No Back Pain, No Neck Pain Skin: No Rash Neurological: No Dizziness, No Focal Weakness, No Sensory Changes Psychological: No Symptoms Endocrine: No Symptoms All Other Systems: Reviewed and Negative - Past Medical History Pertinent Past Medical History: Yes Neurological History: No Pertinent History ENT History: Cataracts Cardiac History: Coronary Artery Disease, High Cholesterol, Hypertension Respiratory History: COPD, Emphysema, Pneumonia Endocrine Medical History: No Pertinent History Musculoskeletal History: Arthritis, Osteoarthritis GI Medical History: GERD, Polyps History: No Pertinent History Psycho-Social History: No Pertinent History Female Reproductive Disorders: No Pertinent History - Past Surgical History Past Surgical History: Yes Neuro Surgical History: No Pertinent History Cardiac: CABG Respiratory: No Pertinent History Gastrointestinal: Appendectomy, Cholecystectomy Genitourinary: No Pertinent History Musculoskeletal: Orthopedic Surgery Female Surgical History: Hysterectomy, Tubal Ligation Other Surgical History: 2 screws in lower back,carpal tunnel release to right wrist - Social History Smoking Status: Former smoker Exposure to second hand smoke: No Drug Use: none Patient Lives Alone: Yes - Nursing Vital Signs Nursing Vital Signs: Initial Vital Signs Temperature 96.8 F 01/07/22 13:50 Pulse Rate 57 L 01/07/22 13:50 Respiratory Rate 16 01/07/22 13:50 Blood Pressure 100/75 01/07/22 13:50 O2 Sat by Pulse Oximetry 96 01/07/22 13:50 Pain Scale Pain Intensity 0 - Physical Exam General Appearance: no apparent distress, alert Eye Exam: PERRL/EOMI, eyes nml inspection Ears, Nose, Throat Exam: normal ENT inspection, TMs normal, pharynx normal, moist mucous membranes Neck Exam: normal inspection, non-tender, supple, full range of motion Respiratory Exam: diminished breath sounds, rhonchi, wheezing, No respiratory distress Cardiovascular Exam: regular rate/rhythm, normal heart sounds, normal peripheral pulses Gastrointestinal/Abdomen Exam: soft, normal bowel sounds, No tenderness, No mass Back Exam: normal inspection, normal range of motion, No CVA tenderness, No vertebral tenderness Extremity Exam: normal inspection, normal range of motion, pelvis stable Neurologic Exam: alert, oriented x 3, cooperative, normal mood/affect, nml cerebellar function, nml station & gait, sensation nml, No motor deficits Skin Exam: normal color, warm, dry, No rash Lymphatic Exam: No adenopathy SpO2: 96 - Course Nursing assessment & vital signs reviewed: Yes EKG Interpreted by Me: Sinus Rhythm, Non-specific ST Changes - Radiology Exams Chest X-ray Interpretation: Reviewed by me, Infiltrates (right lower lobe) Ordered Tests: Active Orders 24 hr Category Date Time Status Zipper Measurer STAT Care 01/07/22 14:11 Active EKG-ER Only STAT Care 01/07/22 14:10 Active IV Insertion STAT Care 01/07/22 14:10 Active POCT Glucose Check STAT Care 01/07/22 14:10 Active CHEST 1 VIEW (PORTABLE) Stat Exams 01/07/22 14:11 Taken CHEST WITHOUT CONTRAST [CT] Stat Exams 01/07/22 16:06 Taken BNP [NT PRO BNP] Stat Lab 01/07/22 14:39 Completed CBC W DIFF Stat Lab 01/07/22 14:39 Completed CMP Stat Lab 01/07/22 14:39 Completed CULTURE,URINE Stat Lab 01/07/22 15:10 Received D-DIMER QUANTITATIVE Stat Lab 01/07/22 14:39 Completed MAGNESIUM Stat Lab 01/07/22 14:39 Completed TROPONIN Q3H Lab 01/07/22 14:39 Completed TROPONIN Q3H Lab 01/07/22 17:15 Ordered TROPONIN Q3H Lab 01/07/22 20:15 Ordered TROPONIN Q3H Lab 01/07/22 23:15 Ordered TROPONIN Q3H Lab 01/08/22 02:15 Ordered Transfer Order Routine Transfer 01/07/22 Ordered Medication Summary Discontinued Medications Generic Name Dose Route Start Last Admin Trade Name Freq PRN Reason Stop Dose Admin Sodium Chloride 1,000 mls @ 999 mls/hr 01/07/22 14:10 01/07/22 16:25 Sodium Chloride 0.9% 1000 Ml IV 01/07/22 15:10 Infused .Q1H1M STA Infusion Sodium Chloride Confirm 01/07/22 15:03 Sodium Chloride 0.9% 1000 Ml Administered 01/07/22 15:04 Dose 1,000 mls @ ud .ROUTE .STK-MED ONE Lab/Rad Data: Laboratory Result Diagrams 01/07/22 14:39 01/07/22 14:39 Laboratory Results 01/07/22 01/07/22 01/07/22 Range/Units 16:47 15:10 14:39 WBC (4.0-10.5) K/mm3 RBC (4.1-5.4) M/mm3 Hgb (12.0-16.0) gm/dl Hct (35-47) % MCV (78-100) fl MCH (26-32) pg MCHC (32-36) g/dl RDW (11.5-14.0) % Plt Count (150-450) K/mm3 MPV (7.5-11.0) fl Gran % (36.0-66.0) % Eos # (Auto) (0-0.5) Absolute Lymphs (auto) (1.0-4.6) Absolute Monos (auto) (0.0-1.3) Lymphocytes % (24.0-44.0) % Monocytes % (0.0-12.0) % Eosinophils % (0.00-5.0) % Basophils % (0.0-0.4) % Absolute Granulocytes (1.4-6.9) Basophils # (0-0.4) D-Dimer 1421 H* (215-500) ng/mL Sodium (137-145) mmol/L Potassium (3.5-5.1) mmol/L Chloride (98-107) mmol/L Carbon Dioxide (22-30) mmol/L Anion Gap (5-15) MEQ/L BUN (7-17) mg/dL Creatinine (0.52-1.04) mg/dL Estimated GFR ML/MIN Glucose (74-106) mg/dL Calcium (8.4-10.2) mg/dL Magnesium (1.6-2.3) mg/dL Total Bilirubin (0.2-1.3) mg/dL AST (14-36) U/L ALT (0-35) U/L Alkaline Phosphatase (38-126) U/L Troponin I (0.000-0.034) ng/mL NT-Pro-B Natriuret Pep (0-1800) pg/mL Serum Total Protein (6.3-8.2) g/dL Albumin (3.5-5.0) g/dL Urinalys Dipstick Clnc MAIN LAB Urine Color YELLOW (YELLOW) Urine Appearance CLEAR (CLEAR) Urine pH 7.0 (5-6) Ur Specific [place] 1.015 (1.005-1.025) POC Urine Protein Conf NEGATIVE (Negative) Urine Ketones NEGATIVE (NEGATIVE) Urine Nitrite NEGATIVE (NEGATIVE) Urine Bilirubin NEGATIVE (NEGATIVE) Urine Urobilinogen 0.2 (0-1) mg/dL Urine Leukocytes NEGATIVE (NEGATIVE) Urine WBC (Auto) NONE (0-5) /HPF Urine RBC (Auto) NONE (0-2) /HPF U Epithel Cells (Auto) NONE (FEW) /HPF Urine Bacteria (Auto) NONE (NEGATIVE) /HPF Urine RBC NEGATIVE (0-5) Estuardo/ul Ur Culture Indicated? ORDERED SEPARATELY Urine Glucose NEGATIVE (NEGATIVE) mg/dL Influenza Type A Ag POSITIVE (NEGATIVE) Influenza Type B Ag NEGATIVE (NEGATIVE) RSV (PCR) NEGATIVE (Negative) SARS-CoV-2 (PCR) NEGATIVE (NEGATIVE) Slides for Path Review 01/07/22 01/07/22 01/07/22 Range/Units 14:39 14:39 14:39 WBC (4.0-10.5) K/mm3 RBC (4.1-5.4) M/mm3 Hgb (12.0-16.0) gm/dl Hct (35-47) % MCV (78-100) fl MCH (26-32) pg MCHC (32-36) g/dl RDW (11.5-14.0) % Plt Count (150-450) K/mm3 MPV (7.5-11.0) fl Gran % (36.0-66.0) % Eos # (Auto) (0-0.5) Absolute Lymphs (auto) (1.0-4.6) Absolute Monos (auto) (0.0-1.3) Lymphocytes % (24.0-44.0) % Monocytes % (0.0-12.0) % Eosinophils % (0.00-5.0) % Basophils % (0.0-0.4) % Absolute Granulocytes (1.4-6.9) Basophils # (0-0.4) D-Dimer (215-500) ng/mL Sodium 134 L (137-145) mmol/L Potassium 4.0 (3.5-5.1) mmol/L Chloride 108 H (98-107) mmol/L Carbon Dioxide 23 (22-30) mmol/L Anion Gap 6.9 (5-15) MEQ/L BUN 13 (7-17) mg/dL Creatinine 0.75 (0.52-1.04) mg/dL Estimated GFR > 60.0 ML/MIN Glucose 108 H (74-106) mg/dL Calcium 8.5 (8.4-10.2) mg/dL Magnesium 1.9 (1.6-2.3) mg/dL Total Bilirubin 0.60 (0.2-1.3) mg/dL AST 31 (14-36) U/L ALT 21 (0-35) U/L Alkaline Phosphatase 60 (38-126) U/L Troponin I < 0.012 (0.000-0.034) ng/mL NT-Pro-B Natriuret Pep 301 (0-1800) pg/mL Serum Total Protein 5.7 L (6.3-8.2) g/dL Albumin 3.2 L (3.5-5.0) g/dL Urinalys Dipstick Clnc Urine Color (YELLOW) Urine Appearance (CLEAR) Urine pH (5-6) Ur Specific [place] (1.005-1.025) POC Urine Protein Conf (Negative) Urine Ketones (NEGATIVE) Urine Nitrite (NEGATIVE) Urine Bilirubin (NEGATIVE) Urine Urobilinogen (0-1) mg/dL Urine Leukocytes (NEGATIVE) Urine WBC (Auto) (0-5) /HPF Urine RBC (Auto) (0-2) /HPF U Epithel Cells (Auto) (FEW) /HPF Urine Bacteria (Auto) (NEGATIVE) /HPF Urine RBC (0-5) Estuardo/ul Ur Culture Indicated? Urine Glucose (NEGATIVE) mg/dL Influenza Type A Ag (NEGATIVE) Influenza Type B Ag (NEGATIVE) RSV (PCR) (Negative) SARS-CoV-2 (PCR) (NEGATIVE) Slides for Path Review 01/07/22 Range/Units 14:39 WBC 13.3 H (4.0-10.5) K/mm3 RBC 3.72 L (4.1-5.4) M/mm3 Hgb 12.1 (12.0-16.0) gm/dl Hct 37.5 (35-47) % MCV 100.8 H (78-100) fl MCH 32.5 H (26-32) pg MCHC 32.3 (32-36) g/dl RDW 16.0 H (11.5-14.0) % Plt Count 245 (150-450) K/mm3 MPV 8.6 (7.5-11.0) fl Gran % 63.3 (36.0-66.0) % Eos # (Auto) 0.26 (0-0.5) Absolute Lymphs (auto) 3.06 (1.0-4.6) Absolute Monos (auto) 1.53 H (0.0-1.3) Lymphocytes % 22.9 L (24.0-44.0) % Monocytes % 11.5 (0.0-12.0) % Eosinophils % 1.9 (0.00-5.0) % Basophils % 0.4 (0.0-0.4) % Absolute Granulocytes 8.43 H (1.4-6.9) Basophils # 0.06 (0-0.4) D-Dimer (215-500) ng/mL Sodium (137-145) mmol/L Potassium (3.5-5.1) mmol/L Chloride (98-107) mmol/L Carbon Dioxide (22-30) mmol/L Anion Gap (5-15) MEQ/L BUN (7-17) mg/dL Creatinine (0.52-1.04) mg/dL Estimated GFR ML/MIN Glucose (74-106) mg/dL Calcium (8.4-10.2) mg/dL Magnesium (1.6-2.3) mg/dL Total Bilirubin (0.2-1.3) mg/dL AST (14-36) U/L ALT (0-35) U/L Alkaline Phosphatase (38-126) U/L Troponin I (0.000-0.034) ng/mL NT-Pro-B Natriuret Pep (0-1800) pg/mL Serum Total Protein (6.3-8.2) g/dL Albumin (3.5-5.0) g/dL Urinalys Dipstick Clnc Urine Color (YELLOW) Urine Appearance (CLEAR) Urine pH (5-6) Ur Specific [place] (1.005-1.025) POC Urine Protein Conf (Negative) Urine Ketones (NEGATIVE) Urine Nitrite (NEGATIVE) Urine Bilirubin (NEGATIVE) Urine Urobilinogen (0-1) mg/dL Urine Leukocytes (NEGATIVE) Urine WBC (Auto) (0-5) /HPF Urine RBC (Auto) (0-2) /HPF U Epithel Cells (Auto) (FEW) /HPF Urine Bacteria (Auto) (NEGATIVE) /HPF Urine RBC (0-5) Estuardo/ul Ur Culture Indicated? Urine Glucose (NEGATIVE) mg/dL Influenza Type A Ag (NEGATIVE) Influenza Type B Ag (NEGATIVE) RSV (PCR) (Negative) SARS-CoV-2 (PCR) (NEGATIVE) Slides for Path Review YES - Progress Progress: unchanged Discussed with : Julissa Will see patient in: hospital (observation) Counseled pt/family regarding: lab results, diagnosis, need for follow-up, kaya zabala - Departure Departure Disposition: Observation Clinical Impression: Influenzal pneumonia Left lower lobe pneumonia Qualifiers: Pneumonia type: due to Haemophilus influenzae Qualified Code(s): J14 - Pneumonia due to Hemophilus influenzae Condition: Fair Critical Care Time: Yes Critical Care Time(excluding separately billable procedures): Critical 30-74 mins Referrals: MARIUSZ LINARES MD [Primary Care Provider] - Follow up/PCP as directed
[2022-01-07 14:53] LABS: Absolute Neutrophil Ct (ANC) 8.43 (1.4-6.9); Basophil (Absolute #) 0.06 (0-0.4); Eosinophil % 1.9 % (0.00-5.0); Eosinophil (Absolute #) 0.26 (0-0.5); Hematocrit 37.5 % (35-47); Hemoglobin 12.1 gm/dl (12.0-16.0); Lymphocyte (Absolute #) 3.06 (1.0-4.6); Lymphocytes % 22.9 % (24.0-44.0); Mean Cell Volume 100.8 fl (78-100); Mean Corpuscular Hemoglobin 32.5 pg (26-32); Mean Corpuscular Hgb Concent. 32.3 g/dl (32-36); Mean Platelet Volume 8.6 fl (7.5-11.0); Monocyte (Absolute #) 1.53 (0.0-1.3); Monocytes % 11.5 % (0.0-12.0); Neutrophil % 63.3 % (36.0-66.0); Platelet Count 245 K/mm3 (150-450); Red Blood Count 3.72 M/mm3 (4.1-5.4); White Blood Count 13.3 K/mm3 (4.0-10.5)
[2022-01-07 15:00] LABS: ALBUMIN 3.2 g/dL (3.5-5.0); ALKALINE PHOSPHATASE 60 U/L (38-126); ANION GAP 6.9 MEQ/L (5-15); BLOOD UREA NITROGEN 13 mg/dL (7-17); CHLORIDE 108 mmol/L (98-107); Calcium 8.5 mg/dL (8.4-10.2); Carbon Dioxide 23 mmol/L (22-30); Creatinine 1 0.75 mg/dL (0.52-1.04); EST GLOMERULAR FILTRATION RATE > 60.0 ML/MIN; Glucose 108 mg/dL (74-106); MAGNESIUM 1.9 mg/dL (1.6-2.3); SGOT/AST 31 U/L (14-36); SGPT/ALT 21 U/L (0-35); SODIUM 134 mmol/L (137-145); Total Protein 5.7 g/dL (6.3-8.2)
[2022-01-07] MEDS ORDERED: Sodium Chloride 0.9% 1000 ML 1,000 ML ONE ×2 (15:03→18:14)
[2022-01-07 15:25] LABS: Appearance CLEAR (CLEAR); Bilirubin NEGATIVE (NEGATIVE); Glucose NEGATIVE (NEGATIVE); Ketones NEGATIVE (NEGATIVE)
[2022-01-07 15:26] LABS: Dipstick done @ ? MAIN LAB; Nitrite NEGATIVE (NEGATIVE); Protein,Urine Dip NEGATIVE (Negative); RBC NEGATIVE Ery/ul (0-5); Specific Gravity 1.015 (1.005-1.025); Urobilinogen 0.2 mg/dL (0-1)
[2022-01-07 15:58] LABS: Slide Review 1 YES
[2022-01-07 17:26] LABS: INFLUENZA B NEGATIVE (NEGATIVE); RESPIRATORY SYNCTIAL VIRUS NEGATIVE (Negative); SARS-CoV-2 Xpert Express NEGATIVE (NEGATIVE)
[2022-01-07 17:44] LABS: INFLUENZA A POSITIVE (NEGATIVE)
[2022-01-07] MEDS ORDERED: ENOXAPARIN SODIUM SQ ONE (18:14)
[2022-01-07] MEDS ORDERED: Tamiflu 75MG Capsule PO ONE (18:14)
[2022-01-07] MEDS ORDERED: Zithromax 500 MG/ 250 ML NaCl Premix 500 MG/250 ML IVPB IV ONE (18:14)
[2022-01-07] MEDS ORDERED: ROCEPHIN 1 Gm-D5w 50 ml Bag** 1 G/50 ML IVPB IV ONE (18:15)
[2022-01-07] MEDS ORDERED: ROCEPHIN 1 Gm-D5w 50 ml Bag** 1 G/50 ML IVPB IV SCH (18:21)
[2022-01-07] MEDS ORDERED: Zithromax 500 MG/ 250 ML NaCl Premix 500 MG/250 ML IVPB IV SCH (18:21)
[2022-01-07] MEDS: Sodium Chloride 0.9% 1000 ML 1,000 ML IV SCH (18:22)
[2022-01-07] MEDS: ENOXAPARIN SODIUM SQ SCH (18:25)
[2022-01-07] MEDS: Tamiflu 75MG Capsule PO SCH (18:26)
[2022-01-07] MEDS ORDERED: PROVENTIL 2.5 MG/3 ML NEB IH PRN (19:08)
--- NOTE | 2022-01-07 19:24 | XRAY ---
Indication: Short of breath. Diaphoresis. Multiple contiguous images obtained through the chest without contrast. Known iodine allergy. Comparison: October 21, 2021. Lungs again demonstrates diffuse scattered peripheral fibrosis/scarring and small right base calcified granuloma. Posterior right lower lobe demonstrates new minimal subpleural patchy airspace disease versus atelectasis. No effusion or pneumothorax. 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 Aorta remains moderately arteriosclerotic without aneurysm. No pathologic mediastinal lymphadenopathy. Bony thorax intact again with mild osteopenia and sternotomy wires. Limited upper abdomen again demonstrates cholecystectomy clips. Impression: 1. New minimal posterior right lower lobe patchy airspace disease versus atelectasis. 2. Again scattered fibrosis/scarring, arteriosclerotic disease, and right lower lobe calcified granuloma. Comment: Preliminary interpretation made by [facility]. No critical discrepancy.
--- NOTE | 2022-01-07 19:26 | XRAY ---
Indication: Diaphoresis. Comparison: November 10, 2021. Portable apical lordotic chest remains hyperinflated and is now clear. 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 Right central venous access catheter has been removed. Bony thorax intact again with osteopenia. Impression: Nonacute hyperinflated chest with chronic features.
[2022-01-07] MEDS: PROVENTIL 2.5 MG/3 ML NEB IH SCH (19:37)
--- NOTE | 2022-01-07 22:19 | PCM.HP ---
History of Present Illness - Chief Complaint Chief Complaint: c/o diaphoresis, weakness for 2-3 days History of Present Illness: is a 76 year old female.with significant past medical history of hypertension care gastric ulcer coronary artery disease s/p coronary artery bypass graft was in her usual state of health today suddenly she become diaphoretic weak and short of breath. She felt like she is going to pass out so she called ambulance and patient was brought into the emergency room. In the emergency room patient is alert awake oriented to time place and person but very weak and lethargic. Patient is able to answer all the questions. Patient denies any fever chills blood in the urine or blood in the stool or chest pain. Timing/Duration: today Severity: moderate Associated Symptoms: diaphoresis, weakness - Review of Systems Constitutional: Fever, Lethargy, Malaise, Weakness, No Chills Eyes: No Symptoms Ears, Nose, & Throat: No Symptoms Respiratory: Cough, No Short Of Breath Cardiac: No Chest Pain, No Edema, No Syncope Abdominal/Gastrointestinal: No Abdominal Pain, No Nausea, No Vomiting, No Diarrhea Genitourinary Symptoms: No Dysuria Musculoskeletal: No Back Pain, No Neck Pain Skin: No Rash Neurological: No Dizziness, No Focal Weakness, No Sensory Changes Psychological: No Symptoms Endocrine: No Symptoms Hematologic/Lymphatic: No Symptoms Immunological/Allergic: No Symptoms Medications & Allergies Home Medications: Home Medication List Amlodipine Besylate [Norvasc] 2.5 mg PO DAILY 08/06/20 [History Confirmed 01/07/22] Carvedilol [Coreg] 25 mg PO BID 08/06/20 [History Confirmed 01/07/22] Furosemide [Lasix] 20 mg PO DAILY 08/06/20 [History Confirmed 01/07/22] Losartan Potassium [Cozaar] 25 mg PO BID 08/06/20 [History Confirmed 01/07/22] Potassium Chloride [Klor-Con] 20 meq PO DAILY 08/06/20 [History Confirmed 01/07/22] Rosuvastatin Calcium [Crestor] 20 mg PO HS 08/06/20 [History Confirmed 01/07/22] Multivitamin [Multiple Vitamins] 1 each PO DAILY 05/23/21 [History Confirmed 01/07/22] Thai/D3/Mag11/Zinc/Inside Outside Sales Representative/Chuy/Bor [Caltrate 600+D Plus Tablet] 1 tablet PO BID 10/16/21 [History Confirmed 01/07/22] Non-Formulary Drug [Non-Formulary Bulk Item] 1 inh IH BID 10/16/21 [History Confirmed 01/07/22] Albuterol/Ipratropium 3ml Neb* [DUONEB 0.5-3 MG/3 ml Neb] 3 ml IH QID #120 each 10/21/21 [Rx Confirmed 01/07/22] Guaifenesin 600 mg ER [Mucinex 600MG ER Tabs] 1,200 mg PO BID tablet 10/27/21 [Rx Confirmed 01/07/22] Famotidine 20 mg [Pepcid 20 MG] 20 mg PO Q12H #60 tablet 11/10/21 [Rx Confirmed 01/07/22] Nystatin/TCN/Hc/Diphenhydram [Nasra's Magic Mouthwash] 5 ml PO QID #1 11/10/21 [Rx Confirmed 01/07/22] PANTOPRAZOLE 40 mg Tablet [Protonix 40MG Tablet] 40 mg PO QAM #30 tab 11/10/21 [Rx Confirmed 01/07/22] Sucralfate 1000 mg/10 ml [Carafate SUSPENSION 1000 MG/10 ML] 1,000 mg PO ACHS ml 11/10/21 [Rx Confirmed 01/07/22] Allergies/Adverse Reactions: Allergies Allergy/AdvReac Type Severity Reaction Status Date / Time iodine Allergy Severe Hives Verified 01/07/22 13:57 - Past Medical History Past Medical History: Yes Neurological History: No Pertinent History ENT History: Cataracts Cardiac History: Coronary Artery Disease, High Cholesterol, Hypertension Respiratory History: COPD, Emphysema, Pneumonia Endocrine Medical History: No Pertinent History Musculoskelatal History: Arthritis, Osteoarthritis GI Medical History: GERD, Polyps History: No Pertinent History Pyscho-Social History: No Pertinent History Reproductive Disorders: No Pertinent History - Female History Are you now?: No - Past Surgical History Past Surgical History: Yes Neuro Surgical History: No Pertinent History Cardiac History: CABG Respiratory Surgery: No Pertinent History GI Surgical History: Appendectomy, Cholecystectomy Genitourinary Surgical Hx: No Pertinent History Musculskeletal Surgical Hx: Orthopedic Surgery Female Surgical History: Hysterectomy, Tubal Ligation Other Surgical History: 2 screws in lower back,carpal tunnel release to right wrist. bleeding ulcers found in EGD - Social History Smoking Status: Never smoker Exposure to second hand smoke: No Alcohol: None Drug Use: none - Physical Exam Vital Signs: Vital Signs - 24 hr Temp Pulse Resp BP Pulse Ox 01/07/22 19:37 97.3 F 70 18 131/63 97 01/07/22 19:00 70 18 97 01/07/22 18:29 97.3 F 68 18 131/63 97 01/07/22 17:46 96 01/07/22 17:00 68 25 H 97 01/07/22 16:01 63 24 123/74 97 01/07/22 13:50 96.8 F 57 L 16 100/75 96 General Appearance: moderate distress, alert Neurologic Exam: alert, oriented x 3, cooperative, normal mood/affect, sensation nml, No motor deficits Eye Exam: PERRL/EOMI, eyes nml inspection Ears, Nose, Throat Exam: normal ENT inspection, TMs normal, pharynx normal, moist mucous membranes Neck Exam: normal inspection, non-tender, supple, full range of motion Respiratory Exam: diminished breath sounds, rhonchi, No respiratory distress Cardiovascular Exam: regular rate/rhythm, normal heart sounds, normal peripheral pulses Gastrointestinal/Abdomen Exam: soft, normal bowel sounds, No tenderness, No mass Back Exam: normal inspection, normal range of motion, No CVA tenderness, No vertebral tenderness Extremity Exam: normal inspection, normal range of motion, pelvis stable Skin Exam: normal color, warm, dry, No rash Lymphatic Exam: No adenopathy Results - Labs Lab/Micro Results: Lab Results-Last 24 Hours 01/07/22 01/07/22 01/07/22 Range/Units 14:39 14:39 14:39 WBC 13.3 H (4.0-10.5) K/mm3 RBC 3.72 L (4.1-5.4) M/mm3 Hgb 12.1 (12.0-16.0) gm/dl Hct 37.5 (35-47) % MCV 100.8 H (78-100) fl MCH 32.5 H (26-32) pg MCHC 32.3 (32-36) g/dl RDW 16.0 H (11.5-14.0) % Plt Count 245 (150-450) K/mm3 MPV 8.6 (7.5-11.0) fl Gran % 63.3 (36.0-66.0) % Eos # (Auto) 0.26 (0-0.5) Absolute Lymphs (auto) 3.06 (1.0-4.6) Absolute Monos (auto) 1.53 H (0.0-1.3) Lymphocytes % 22.9 L (24.0-44.0) % Monocytes % 11.5 (0.0-12.0) % Eosinophils % 1.9 (0.00-5.0) % Basophils % 0.4 (0.0-0.4) % Absolute Granulocytes 8.43 H (1.4-6.9) Basophils # 0.06 (0-0.4) D-Dimer (215-500) ng/mL Sodium 134 L (137-145) mmol/L Potassium 4.0 (3.5-5.1) mmol/L Chloride 108 H (98-107) mmol/L Carbon Dioxide 23 (22-30) mmol/L Anion Gap 6.9 (5-15) MEQ/L BUN 13 (7-17) mg/dL Creatinine 0.75 (0.52-1.04) mg/dL Estimated GFR > 60.0 ML/MIN Glucose 108 H (74-106) mg/dL Calcium 8.5 (8.4-10.2) mg/dL Magnesium 1.9 (1.6-2.3) mg/dL Total Bilirubin 0.60 (0.2-1.3) mg/dL AST 31 (14-36) U/L ALT 21 (0-35) U/L Alkaline Phosphatase 60 (38-126) U/L Troponin I < 0.012 (0.000-0.034) ng/mL NT-Pro-B Natriuret Pep (0-1800) pg/mL Serum Total Protein 5.7 L (6.3-8.2) g/dL Albumin 3.2 L (3.5-5.0) g/dL Urinalys Dipstick Clnc Urine Color (YELLOW) Urine Appearance (CLEAR) Urine pH (5-6) Ur Specific [place] (1.005-1.025) POC Urine Protein Conf (Negative) Urine Ketones (NEGATIVE) Urine Nitrite (NEGATIVE) Urine Bilirubin (NEGATIVE) Urine Urobilinogen (0-1) mg/dL Urine Leukocytes (NEGATIVE) Urine WBC (Auto) (0-5) /HPF Urine RBC (Auto) (0-2) /HPF U Epithel Cells (Auto) (FEW) /HPF Urine Bacteria (Auto) (NEGATIVE) /HPF Urine RBC (0-5) Estuardo/ul Ur Culture Indicated? Urine Glucose (NEGATIVE) mg/dL Influenza Type A Ag (NEGATIVE) Influenza Type B Ag (NEGATIVE) RSV (PCR) (Negative) SARS-CoV-2 (PCR) (NEGATIVE) Slides for Path Review YES 01/07/22 01/07/22 01/07/22 Range/Units 14:39 14:39 15:10 WBC (4.0-10.5) K/mm3 RBC (4.1-5.4) M/mm3 Hgb (12.0-16.0) gm/dl Hct (35-47) % MCV (78-100) fl MCH (26-32) pg MCHC (32-36) g/dl RDW (11.5-14.0) % Plt Count (150-450) K/mm3 MPV (7.5-11.0) fl Gran % (36.0-66.0) % Eos # (Auto) (0-0.5) Absolute Lymphs (auto) (1.0-4.6) Absolute Monos (auto) (0.0-1.3) Lymphocytes % (24.0-44.0) % Monocytes % (0.0-12.0) % Eosinophils % (0.00-5.0) % Basophils % (0.0-0.4) % Absolute Granulocytes (1.4-6.9) Basophils # (0-0.4) D-Dimer 1421 H* (215-500) ng/mL Sodium (137-145) mmol/L Potassium (3.5-5.1) mmol/L Chloride (98-107) mmol/L Carbon Dioxide (22-30) mmol/L Anion Gap (5-15) MEQ/L BUN (7-17) mg/dL Creatinine (0.52-1.04) mg/dL Estimated GFR ML/MIN Glucose (74-106) mg/dL Calcium (8.4-10.2) mg/dL Magnesium (1.6-2.3) mg/dL Total Bilirubin (0.2-1.3) mg/dL AST (14-36) U/L ALT (0-35) U/L Alkaline Phosphatase (38-126) U/L Troponin I (0.000-0.034) ng/mL NT-Pro-B Natriuret Pep 301 (0-1800) pg/mL Serum Total Protein (6.3-8.2) g/dL Albumin (3.5-5.0) g/dL Urinalys Dipstick Clnc MAIN LAB Urine Color YELLOW (YELLOW) Urine Appearance CLEAR (CLEAR) Urine pH 7.0 (5-6) Ur Specific [place] 1.015 (1.005-1.025) POC Urine Protein Conf NEGATIVE (Negative) Urine Ketones NEGATIVE (NEGATIVE) Urine Nitrite NEGATIVE (NEGATIVE) Urine Bilirubin NEGATIVE (NEGATIVE) Urine Urobilinogen 0.2 (0-1) mg/dL Urine Leukocytes NEGATIVE (NEGATIVE) Urine WBC (Auto) NONE (0-5) /HPF Urine RBC (Auto) NONE (0-2) /HPF U Epithel Cells (Auto) NONE (FEW) /HPF Urine Bacteria (Auto) NONE (NEGATIVE) /HPF Urine RBC NEGATIVE (0-5) Estuardo/ul Ur Culture Indicated? ORDERED SEPARATELY Urine Glucose NEGATIVE (NEGATIVE) mg/dL Influenza Type A Ag (NEGATIVE) Influenza Type B Ag (NEGATIVE) RSV (PCR) (Negative) SARS-CoV-2 (PCR) (NEGATIVE) Slides for Path Review 01/07/22 01/07/22 Range/Units 16:47 17:30 WBC (4.0-10.5) K/mm3 RBC (4.1-5.4) M/mm3 Hgb (12.0-16.0) gm/dl Hct (35-47) % MCV (78-100) fl MCH (26-32) pg MCHC (32-36) g/dl RDW (11.5-14.0) % Plt Count (150-450) K/mm3 MPV (7.5-11.0) fl Gran % (36.0-66.0) % Eos # (Auto) (0-0.5) Absolute Lymphs (auto) (1.0-4.6) Absolute Monos (auto) (0.0-1.3) Lymphocytes % (24.0-44.0) % Monocytes % (0.0-12.0) % Eosinophils % (0.00-5.0) % Basophils % (0.0-0.4) % Absolute Granulocytes (1.4-6.9) Basophils # (0-0.4) D-Dimer (215-500) ng/mL Sodium (137-145) mmol/L Potassium (3.5-5.1) mmol/L Chloride (98-107) mmol/L Carbon Dioxide (22-30) mmol/L Anion Gap (5-15) MEQ/L BUN (7-17) mg/dL Creatinine (0.52-1.04) mg/dL Estimated GFR ML/MIN Glucose (74-106) mg/dL Calcium (8.4-10.2) mg/dL Magnesium (1.6-2.3) mg/dL Total Bilirubin (0.2-1.3) mg/dL AST (14-36) U/L ALT (0-35) U/L Alkaline Phosphatase (38-126) U/L Troponin I < 0.012 (0.000-0.034) ng/mL NT-Pro-B Natriuret Pep (0-1800) pg/mL Serum Total Protein (6.3-8.2) g/dL Albumin (3.5-5.0) g/dL Urinalys Dipstick Clnc Urine Color (YELLOW) Urine Appearance (CLEAR) Urine pH (5-6) Ur Specific [place] (1.005-1.025) POC Urine Protein Conf (Negative) Urine Ketones (NEGATIVE) Urine Nitrite (NEGATIVE) Urine Bilirubin (NEGATIVE) Urine Urobilinogen (0-1) mg/dL Urine Leukocytes (NEGATIVE) Urine WBC (Auto) (0-5) /HPF Urine RBC (Auto) (0-2) /HPF U Epithel Cells (Auto) (FEW) /HPF Urine Bacteria (Auto) (NEGATIVE) /HPF Urine RBC (0-5) Estuardo/ul Ur Culture Indicated? Urine Glucose (NEGATIVE) mg/dL Influenza Type A Ag POSITIVE (NEGATIVE) Influenza Type B Ag NEGATIVE (NEGATIVE) RSV (PCR) NEGATIVE (Negative) SARS-CoV-2 (PCR) NEGATIVE (NEGATIVE) Slides for Path Review Accuchecks Date 01/07/22 Time 14:29 - Radiology Impressions Radiology Exams & Impressions: Radiology Procedures Category Date Time Status CHEST 1 VIEW (PORTABLE) Stat Exams 01/07/22 14:11 Completed CHEST WITHOUT CONTRAST [CT] Stat Exams 01/07/22 16:[address]/CHEST WITHOUT CONTRAST Indication: Short of breath. Diaphoresis. Multiple contiguous images obtained through the chest without contrast. Known iodine allergy. Comparison: October 21, 2021. Lungs again demonstrates diffuse scattered peripheral fibrosis/scarring and small right base calcified granuloma. Posterior right lower lobe demonstrates new minimal subpleural patchy airspace disease versus atelectasis. No effusion or pneumothorax. 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 Aorta remains moderately arteriosclerotic without aneurysm. No pathologic mediastinal lymphadenopathy. Bony thorax intact again with mild osteopenia and sternotomy wires. Limited upper abdomen again demonstrates cholecystectomy clips. Impression: 1. New minimal posterior right lower lobe patchy airspace disease versus atelectasis. 2. Again scattered fibrosis/scarring, arteriosclerotic disease, and right lower lobe calcified granuloma. - Other Procedures and Tests Respiratory Therapy 01/07/22 18:20 Oxygen Nasal Cannula 3 lpm 01/07/22 18:54 Respiratory Therapy Assessment DAILY Assessment/Plan (1) Influenzal pneumonia Current Visit: Yes Status: Acute Assessment & Plan: Chief Complaint Diagnosis Pneumonia, Flu A+ Allergies Allergy/AdvReac Type Severity Reaction Status Date / Time iodine Allergy Severe Hives Verified 01/07/22 13:57 Vital Signs (Last 24 hours) Temp Pulse Resp BP Pulse Ox 01/07/22 19:37 97.3 F 70 18 131/63 97 01/07/22 19:00 70 18 97 01/07/22 18:29 97.3 F 68 18 131/63 97 01/07/22 17:46 96 01/07/22 17:00 68 25 H 97 01/07/22 16:01 63 24 123/74 97 01/07/22 13:50 96.8 F 57 L 16 100/75 96 Current Medications Generic Name Dose Route Start Last Admin Trade Name Freq PRN Reason Stop Dose Admin Albuterol Sulfate 2.5 mg 01/07/22 19:08 Albuterol Sulfate 2.5 Mg/3 Ml Neb IH 02/06/22 19:07 Q4H PRN PRN SHORTNESS OF BREATH/WHEEZING Albuterol Sulfate 2.5 mg 01/08/22 07:00 01/07/22 19:37 Albuterol Sulfate 2.5 Mg/3 Ml Neb IH 02/07/22 06:59 2.5 mg TIDRT MICKY Administration Enoxaparin Sodium 40 mg 01/08/22 10:00 01/07/22 18:25 Enoxaparin Sodium 40 Mg/0.4 Ml Syringe SQ 02/07/22 09:59 40 mg DAILY MICKY Administration Sodium Chloride 1,000 mls @ 50 mls/hr 01/07/22 18:20 01/07/22 18:22 Sodium Chloride 0.9% 1000 Ml IV 02/06/22 18:19 50 mls/hr .Q20H MICKY Administration Azithromycin 500 mg in 250 mls @ 250 mls/hr 01/07/22 18:21 01/07/22 18:24 Zithromax 500 Mg/ 250 Ml Nacl Premix IV 02/06/22 18:20 250 mls/hr Q24H10 MICKY Administration Ceftriaxone Sodium/Dextrose 1 g in 50 mls @ 100 mls/hr 01/07/22 18:21 01/07/22 18:22 Rocephin 1 Gm-D5w 50 Ml Bag IV 01/10/22 18:20 100 mls/hr Q24H10 MICKY Administration Oseltamivir Phosphate 75 mg 01/07/22 22:00 01/07/22 18:26 Oseltamivir 75 Mg Cap PO 01/12/22 21:59 75 mg BID MICKY Administration Discontinued Medications Generic Name Dose Route Start Last Admin Trade Name Freq PRN Reason Stop Dose Admin Enoxaparin Sodium Confirm 01/07/22 18:14 Enoxaparin Sodium 40 Mg/0.4 Ml Syringe Administered 01/07/22 18:15 Dose 40 mg SQ .STK-MED ONE Sodium Chloride 1,000 mls @ 999 mls/hr 01/07/22 14:10 01/07/22 16:25 Sodium Chloride 0.9% 1000 Ml IV 01/07/22 15:10 Infused .Q1H1M STA Infusion Sodium Chloride Confirm 01/07/22 15:03 Sodium Chloride 0.9% 1000 Ml Administered 01/07/22 15:04 Dose 1,000 mls @ ud .ROUTE .STK-MED ONE Azithromycin Confirm 01/07/22 18:14 Zithromax 500 Mg/ 250 Ml Nacl Premix Administered 01/07/22 18:15 Dose 500 mg in 250 mls @ ud IV .STK-MED ONE Sodium Chloride Confirm 01/07/22 18:14 Sodium Chloride 0.9% 1000 Ml Administered 01/07/22 18:15 Dose 1,000 mls @ ud .ROUTE .STK-MED ONE Ceftriaxone Sodium/Dextrose Confirm 01/07/22 18:15 Rocephin 1 Gm-D5w 50 Ml Bag Administered 01/07/22 18:16 Dose 1 g in 50 mls @ ud IV .STK-MED ONE Ceftriaxone Sodium/Dextrose 1 g in 50 mls @ 100 mls/hr 01/08/22 10:00 Rocephin 1 Gm-D5w 50 Ml Bag IV 01/11/22 09:59 Q24H10 MICKY Azithromycin 500 mg in 250 mls @ 250 mls/hr 01/08/22 10:00 Zithromax 500 Mg/ 250 Ml Nacl Premix IV 02/07/22 09:59 Q24H10 MICKY Oseltamivir Phosphate Confirm 01/07/22 18:14 Oseltamivir 75 Mg Cap Administered 01/07/22 18:15 Dose 75 mg PO .STK-MED ONE Intake & Output (Last 24 hours) 01/05/22 01/06/22 01/07/22 01/08/22 11:59 11:59 11:59 11:59 Weight 61.6 kg Microbiology Results (Last 24 hours) 01/07/22 15:10 Catherized Urine Culture - Pending Laboratory Results (Last 24 hours) 01/07/22 01/07/22 01/07/22 17:30 16:47 15:10 WBC RBC Hgb Hct MCV MCH MCHC RDW Plt Count MPV Gran % Eos # (Auto) Absolute Lymphs (auto) Absolute Monos (auto) Lymphocytes % Monocytes % Eosinophils % Basophils % Absolute Granulocytes Basophils # D-Dimer Sodium Potassium Chloride Carbon Dioxide Anion Gap BUN Creatinine Estimated GFR Glucose Calcium Magnesium Total Bilirubin AST ALT Alkaline Phosphatase Troponin I < 0.012 NT-Pro-B Natriuret Pep Serum Total Protein Albumin Urinalys Dipstick Clnc MAIN LAB Urine Color YELLOW Urine Appearance CLEAR Urine pH 7.0 Ur Specific [place] 1.015 POC Urine Protein Conf NEGATIVE Urine Ketones NEGATIVE Urine Nitrite NEGATIVE Urine Bilirubin NEGATIVE Urine Urobilinogen 0.2 Urine Leukocytes NEGATIVE Urine WBC (Auto) NONE Urine RBC (Auto) NONE U Epithel Cells (Auto) NONE Urine Bacteria (Auto) NONE Urine RBC NEGATIVE Ur Culture Indicated? ORDERED SEPARATELY Urine Glucose NEGATIVE Influenza Type A Ag POSITIVE Influenza Type B Ag NEGATIVE RSV (PCR) NEGATIVE SARS-CoV-2 (PCR) NEGATIVE Slides for Path Review 01/07/22 01/07/22 01/07/22 14:39 14:39 14:39 WBC RBC Hgb Hct MCV MCH MCHC RDW Plt Count MPV Gran % Eos # (Auto) Absolute Lymphs (auto) Absolute Monos (auto) Lymphocytes % Monocytes % Eosinophils % Basophils % Absolute Granulocytes Basophils # D-Dimer 1421 H* Sodium Potassium Chloride Carbon Dioxide Anion Gap BUN Creatinine Estimated GFR Glucose Calcium Magnesium Total Bilirubin AST ALT Alkaline Phosphatase Troponin I < 0.012 NT-Pro-B Natriuret Pep 301 Serum Total Protein Albumin Urinalys Dipstick Clnc Urine Color Urine Appearance Urine pH Ur Specific [place] POC Urine Protein Conf Urine Ketones Urine Nitrite Urine Bilirubin Urine Urobilinogen Urine Leukocytes Urine WBC (Auto) Urine RBC (Auto) U Epithel Cells (Auto) Urine Bacteria (Auto) Urine RBC Ur Culture Indicated? Urine Glucose Influenza Type A Ag Influenza Type B Ag RSV (PCR) SARS-CoV-2 (PCR) Slides for Path Review 01/07/22 01/07/22 14:39 14:39 WBC 13.3 H RBC 3.72 L Hgb 12.1 Hct 37.5 MCV 100.8 H MCH 32.5 H MCHC 32.3 RDW 16.0 H Plt Count 245 MPV 8.6 Gran % 63.3 Eos # (Auto) 0.26 Absolute Lymphs (auto) 3.06 Absolute Monos (auto) 1.53 H Lymphocytes % 22.9 L Monocytes % 11.5 Eosinophils % 1.9 Basophils % 0.4 Absolute Granulocytes 8.43 H Basophils # 0.06 D-Dimer Sodium 134 L Potassium 4.0 Chloride 108 H Carbon Dioxide 23 Anion Gap 6.9 BUN 13 Creatinine 0.75 Estimated GFR > 60.0 Glucose 108 H Calcium 8.5 Magnesium 1.9 Total Bilirubin 0.60 AST 31 ALT 21 Alkaline Phosphatase 60 Troponin I NT-Pro-B Natriuret Pep Serum Total Protein 5.7 L Albumin 3.2 L Urinalys Dipstick Clnc Urine Color Urine Appearance Urine pH Ur Specific [place] POC Urine Protein Conf Urine Ketones Urine Nitrite Urine Bilirubin Urine Urobilinogen Urine Leukocytes Urine WBC (Auto) Urine RBC (Auto) U Epithel Cells (Auto) Urine Bacteria (Auto) Urine RBC Ur Culture Indicated? Urine Glucose Influenza Type A Ag Influenza Type B Ag RSV (PCR) SARS-CoV-2 (PCR) Slides for Path Review YES Orders (Last 24 hours) Category Date Time Status Up Ad Jackie ROUTINE Activity 01/07/22 18:20 Active Hot Plate Press Operator STAT Care 01/07/22 14:11 Completed Code Status Order ROUTINE Care 01/07/22 18:20 Active EKG-ER Only STAT Care 01/07/22 14:10 Completed IV Care Q6H Care 01/07/22 18:20 Active IV Insertion STAT Care 01/07/22 14:10 Completed Miscellaneous Nursing Order ROUTINE Care 01/07/22 18:20 Active POCT Glucose Check STAT Care 01/07/22 14:[address] in Observation ROUTINE Care 01/07/22 18:20 Completed [place]andy [place] ROUTINE Care 01/07/22 18:20 Active Weight,Daily 0600 Care 01/07/22 18:20 Active Heart-Healthy Diet Diet 01/07/22 Dinner Active CHEST 1 VIEW (PORTABLE) Stat Exams 01/07/22 14:11 Completed CHEST WITHOUT CONTRAST [CT] Stat Exams 01/07/22 16:06 Completed BNP [NT PRO BNP] Stat Lab 01/07/22 14:39 Completed CBC AM.LAB Lab 01/08/22 04:00 Ordered CBC W DIFF Stat Lab 01/07/22 14:39 Completed CMP AM.LAB Lab 01/08/22 04:00 Ordered CMP Stat Lab 01/07/22 14:39 Completed CULTURE,URINE Stat Lab 01/07/22 15:10 Received D-DIMER QUANTITATIVE Stat Lab 01/07/22 14:39 Completed MAGNESIUM Stat Lab 01/07/22 14:39 Completed TROPONIN Q3H Lab 01/07/22 14:39 Completed TROPONIN Q3H Lab 01/07/22 17:30 Completed TROPONIN Q3H Lab 01/07/22 23:15 Ordered TROPONIN Q3H Lab 01/08/22 02:15 Ordered Albuterol 2.5 mg/3 ml Neb [Proventil 2.5 mg/3 ml Neb Med 01/07/22 19:08 Ordered ] 2.5 mg IH Q4H PRN PRN Albuterol 2.5 mg/3 ml Neb [Proventil 2.5 mg/3 ml Neb Med 01/08/22 07:00 Ordered ] 2.5 mg IH TIDRT Azithromycin 500 mg/250 ml [Zithromax 500 MG/ 250 ML Med 01/07/22 18:21 Ordered NaCl Premix] 500 mg in 250 ml IV Q24H10 Azithromycin 500 mg/250 ml [Zithromax 500 MG/ 250 ML Med 01/08/22 10:00 Disco ntinued NaCl Premix] 500 mg in 250 ml IV Q24H10 Azithromycin 500 mg/250 ml [Zithromax 500 MG/ 250 ML Med 01/07/22 18:14 Discontinued NaCl Premix] 500 mg in 250 ml IV UD Ceftriaxone 1 GM/50 ML PREMIX* [ROCEPHIN 1 Gm-D5w 50 ml Med 01/07/22 18:21 Ordered Bag] 1 g in 50 ml IV Q24H10 Ceftriaxone 1 GM/50 ML PREMIX* [ROCEPHIN 1 Gm-D5w 50 ml Med 01/08/22 10:00 D iscontinued Bag] 1 g in 50 ml IV Q24H10 Ceftriaxone 1 GM/50 ML PREMIX* [ROCEPHIN 1 Gm-D5w 50 ml Med 01/07/22 18:15 Discontinued Bag] 1 g in 50 ml IV UD Enoxaparin Sodium [Enoxaparin Sodium] Med 01/07/22 18:14 Discontinued 40 mg SQ .STK-MED ONE Enoxaparin Sodium [Enoxaparin Sodium] Med 01/08/22 10:00 Ordered 40 mg SQ DAILY NaCl 0.9% 1000 ml [Sodium Chloride 0.9% 1000 ML] 1,000 Med 01/07/22 15:03 Discontinued ml .ROUTE UD NaCl 0.9% 1000 ml [Sodium Chloride 0.9% 1000 ML] 1,000 Med 01/07/22 18:14 Discontinued ml .ROUTE UD NaCl 0.9% 1000 ml [Sodium Chloride 0.9% 1000 ML] 1,000 Med 01/07/22 18:20 Ordered ml IV 50 mls/hr NaCl 0.9% 1000 ml [Sodium Chloride 0.9% 1000 ML] 1,000 Med 01/07/22 14:10 Discontinued ml IV 999 mls/hr Oseltamivir 75 mg [Tamiflu 75MG Capsule] Med 01/07/22 18:14 Discontinued 75 mg PO .STK-MED ONE Oseltamivir 75 mg [Tamiflu 75MG Capsule] Med 01/07/22 22:00 Ordered 75 mg PO BID Oxygen Nasal Cannula 3 lpm RT 01/07/22 18:20 Active Pulse Oximetry .continuos RT 01/07/22 18:55 Active Respiratory Therapy Assessment DAILY RT 01/07/22 18:54 Active Respiratory Therapy Consult ROUTINE RT 01/07/22 18:20 Completed Transfer Order Routine Transfer 01/07/22 Completed Code(s): J11.00 - FLU DUE TO UNIDENTIFIED FLU VIRUS W UNSP TYPE OF PNEUMONIA (2) Right lower lobe pneumonia Current Visit: Yes Status: Acute Qualifiers: Pneumonia type: due to unspecified organism Qualified Code(s): J18.9 - Pneumonia, unspecified organism Assessment & Plan: Last Vital Signs Temp 97.3 F 01/07/22 19:37 Pulse 76 01/07/22 19:37 Resp 18 01/07/22 19:37 BP 131/63 01/07/22 19:37 Pulse Ox 97 01/07/22 19:37 Allergies iodine Allergy (Severe, Verified 01/07/22 13:57) Hives Active Medications Albuterol Sulfate (Albuterol Sulfate 2.5 Mg/3 Ml Neb) 2.5 mg IH Q4H PRN PRN PRN Reason: SHORTNESS OF BREATH/WHEEZING Stop: 02/06/22 19:07 Albuterol Sulfate (Albuterol Sulfate 2.5 Mg/3 Ml Neb) 2.5 mg IH TIDRT [facility] Stop: 02/07/22 06:59 Last Admin: 01/07/22 19:37 Dose: 2.5 mg Enoxaparin Sodium (Enoxaparin Sodium 40 Mg/0.4 Ml Syringe) 40 mg SQ DAILY [facility] Stop: 02/07/22 09:59 Last Admin: 01/07/22 18:25 Dose: 40 mg Sodium Chloride (Sodium Chloride 0.9% 1000 Ml) 1,000 mls @ 50 mls/hr IV .Q20H [facility] Stop: 02/06/22 18:19 Last Admin: 01/07/22 18:22 Dose: 50 mls/hr Azithromycin (Zithromax 500 Mg/ 250 Ml Nacl Premix) 500 mg in 250 mls @ 250 mls/hr IV Q24H10 [facility] Stop: 02/06/22 18:20 Last Admin: 01/07/22 18:24 Dose: 250 mls/hr Ceftriaxone Sodium/Dextrose (Rocephin 1 Gm-D5w 50 Ml Bag) 1 g in 50 mls @ 100 mls/hr IV Q24H10 [facility] Stop: 01/10/22 18:20 Last Admin: 01/07/22 18:22 Dose: 100 mls/hr Oseltamivir Phosphate (Oseltamivir 75 Mg Cap) 75 mg PO BID [facility] Stop: 01/12/22 21:59 Last Admin: 01/07/22 18:26 Dose: 75 mg Intake & Output 01/07/22 01/08/22 11:59 11:59 Weight 61.6 kg Orders 01/07/22 15:10 CULTURE,URINE Stat 01/07/22 Dinner Heart-Healthy Diet 01/07/22 18:20 NaCl 0.9% 1000 ml [Sodium Chloride 0.9% 1000 ML] 1,000 ml IV 50 mls/hr 01/07/22 18:20 Up Ad Jackie ROUTINE Code Status Order ROUTINE IV Care Q6H Miscellaneous Nursing Order ROUTINE Tim Mccoy, Apply ROUTINE Weight,Daily 0600 Oxygen Nasal Cannula 3 lpm 01/07/22 18:21 Azithromycin 500 mg/250 ml [Zithromax 500 MG/ 250 ML NaCl Premix] 500 mg in 250 ml IV Q24H10 Ceftriaxone 1 GM/50 ML PREMIX* [ROCEPHIN 1 Gm-D5w 50 ml Bag] 1 g in 50 ml IV Q24H10 01/07/22 18:54 Respiratory Therapy Assessment DAILY 01/07/22 18:55 Pulse Oximetry .continuos 01/07/22 19:08 Albuterol 2.5 mg/3 ml Neb [Proventil 2.5 mg/3 ml Neb] 2.5 mg IH Q4H PRN PRN 01/07/22 22:00 Oseltamivir 75 mg [Tamiflu 75MG Capsule] 75 mg PO BID 01/07/22 23:15 TROPONIN Q3H 01/08/22 02:15 TROPONIN Q3H 01/08/22 04:00 CBC AM.LAB CMP AM.LAB 01/08/22 07:00 Albuterol 2.5 mg/3 ml Neb [Proventil 2.5 mg/3 ml Neb] 2.5 mg IH TIDRT 01/08/22 10:00 Enoxaparin Sodium [Enoxaparin Sodium] 40 mg SQ DAILY Lab Tests 01/07/22 01/07/22 01/07/22 14:39 14:39 14:39 WBC 13.3 H RBC 3.72 L Hgb 12.1 Hct 37.5 MCV 100.8 H MCH 32.5 H MCHC 32.3 RDW 16.0 H Plt Count 245 MPV 8.6 Gran % 63.3 Eos # (Auto) 0.26 Absolute Lymphs (auto) 3.06 Absolute Monos (auto) 1.53 H Lymphocytes % 22.9 L Monocytes % 11.5 Eosinophils % 1.9 Basophils % 0.4 Absolute Granulocytes 8.43 H Basophils # 0.06 D-Dimer Sodium 134 L Potassium 4.0 Chloride 108 H Carbon Dioxide 23 Anion Gap 6.9 BUN 13 Creatinine 0.75 Estimated GFR > 60.0 Glucose 108 H Calcium 8.5 Magnesium 1.9 Total Bilirubin 0.60 AST 31 ALT 21 Alkaline Phosphatase 60 Troponin I < 0.012 NT-Pro-B Natriuret Pep Serum Total Protein 5.7 L Albumin 3.2 L Urinalys Dipstick Clnc Urine Color Urine Appearance Urine pH Ur Specific [place] POC Urine Protein Conf Urine Ketones Urine Nitrite Urine Bilirubin Urine Urobilinogen Urine Leukocytes Urine WBC (Auto) Urine RBC (Auto) U Epithel Cells (Auto) Urine Bacteria (Auto) Urine RBC Ur Culture Indicated? Urine Glucose Influenza Type A Ag Influenza Type B Ag RSV (PCR) SARS-CoV-2 (PCR) Slides for Path Review YES 01/07/22 01/07/22 01/07/22 14:39 14:39 15:10 WBC RBC Hgb Hct MCV MCH MCHC RDW Plt Count MPV Gran % Eos # (Auto) Absolute Lymphs (auto) Absolute Monos (auto) Lymphocytes % Monocytes % Eosinophils % Basophils % Absolute Granulocytes Basophils # D-Dimer 1421 H* Sodium Potassium Chloride Carbon Dioxide Anion Gap BUN Creatinine Estimated GFR Glucose Calcium Magnesium Total Bilirubin AST ALT Alkaline Phosphatase Troponin I NT-Pro-B Natriuret Pep 301 Serum Total Protein Albumin Urinalys Dipstick Clnc MAIN LAB Urine Color YELLOW Urine Appearance CLEAR Urine pH 7.0 Ur Specific [place] 1.015 POC Urine Protein Conf NEGATIVE Urine Ketones NEGATIVE Urine Nitrite NEGATIVE Urine Bilirubin NEGATIVE Urine Urobilinogen 0.2 Urine Leukocytes NEGATIVE Urine WBC (Auto) NONE Urine RBC (Auto) NONE U Epithel Cells (Auto) NONE Urine Bacteria (Auto) NONE Urine RBC NEGATIVE Ur Culture Indicated? ORDERED SEPARATELY Urine Glucose NEGATIVE Influenza Type A Ag Influenza Type B Ag RSV (PCR) SARS-CoV-2 (PCR) Slides for Path Review 01/07/22 01/07/22 16:47 17:30 WBC RBC Hgb Hct MCV MCH MCHC RDW Plt Count MPV Gran % Eos # (Auto) Absolute Lymphs (auto) Absolute Monos (auto) Lymphocytes % Monocytes % Eosinophils % Basophils % Absolute Granulocytes Basophils # D-Dimer Sodium Potassium Chloride Carbon Dioxide Anion Gap BUN Creatinine Estimated GFR Glucose Calcium Magnesium Total Bilirubin AST ALT Alkaline Phosphatase Troponin I < 0.012 NT-Pro-B Natriuret Pep Serum Total Protein Albumin Urinalys Dipstick Clnc Urine Color Urine Appearance Urine pH Ur Specific [place] POC Urine Protein Conf Urine Ketones Urine Nitrite Urine Bilirubin Urine Urobilinogen Urine Leukocytes Urine WBC (Auto) Urine RBC (Auto) U Epithel Cells (Auto) Urine Bacteria (Auto) Urine RBC Ur Culture Indicated? Urine Glucose Influenza Type A Ag POSITIVE Influenza Type B Ag NEGATIVE RSV (PCR) NEGATIVE SARS-CoV-2 (PCR) NEGATIVE Slides for Path Review Code(s): J18.9 - PNEUMONIA, UNSPECIFIED ORGANISM
[2022-01-08 04:11] LABS: Hematocrit 37.4 % (35-47); Hemoglobin 11.9 gm/dl (12.0-16.0); Mean Cell Volume 103.9 fl (78-100); Mean Corpuscular Hemoglobin 33.1 pg (26-32); Mean Corpuscular Hgb Concent. 31.8 g/dl (32-36); Mean Platelet Volume 8.6 fl (7.5-11.0); Platelet Count 234 K/mm3 (150-450); Red Cell Distribution Width 16.4 % (11.5-14.0); White Blood Count 7.7 K/mm3 (4.0-10.5)
[2022-01-08 04:16] LABS: ALKALINE PHOSPHATASE 54 U/L (38-126); ANION GAP 8.2 MEQ/L (5-15); BLOOD UREA NITROGEN 6 mg/dL (7-17); CHLORIDE 111 mmol/L (98-107); Calcium 8.4 mg/dL (8.4-10.2); Carbon Dioxide 21 mmol/L (22-30); Creatinine 1 0.65 mg/dL (0.52-1.04); EST GLOMERULAR FILTRATION RATE > 60.0 ML/MIN; Glucose 76 mg/dL (74-106); Potassium 4.3 mmol/L (3.5-5.1); SGOT/AST 25 U/L (14-36); SGPT/ALT 18 U/L (0-35); SODIUM 136 mmol/L (137-145); Total Protein 5.3 g/dL (6.3-8.2)
[2022-01-08] MEDS: PROVENTIL 2.5 MG/3 ML NEB IH SCH ×3 (07:30→19:26)
--- NOTE | 2022-01-08 08:27 | PCM.NOTE ---
Date and Time: 01/08/22821 Subjective Assessment: doing little better - Review of Systems Constitutional: No Fever, No Chills Eyes: No Symptoms Ears, Nose, & Throat: No Symptoms Respiratory: Short Of Breath, No Cough Cardiac: No Chest Pain, No Edema, No Syncope Abdominal/Gastrointestinal: No Abdominal Pain, No Nausea, No Vomiting, No Diarrhea Genitourinary Symptoms: No Dysuria Musculoskeletal: No Back Pain, No Neck Pain Skin: No Rash Neurological: No Dizziness, No Focal Weakness, No Sensory Changes Psychological: No Symptoms Endocrine: No Symptoms Hematologic/Lymphatic: No Symptoms Immunological/Allergic: No Symptoms Objective Exam General Appearance: no apparent distress, alert Neurologic Exam: alert, oriented x 3, cooperative, normal mood/affect, nml cerebellar function, sensation nml, No motor deficits Skin Exam: normal color, warm, dry Eye Exam: PERRL, EOMI, eyes nml inspection Ears, Nose, Throat Exam: normal ENT inspection, pharynx normal, moist mucous membranes Neck Exam: normal inspection, non-tender, supple, full range of motion Respiratory Exam: normal breath sounds, rhonchi, wheezing, No respiratory distress Cardiovascular Exam: regular rate/rhythm, normal heart sounds Gastrointestinal/Abdomen Exam: soft, No tenderness, No mass Extremity Exam: normal inspection, normal range of motion Back Exam: normal inspection, normal range of motion, No CVA tenderness, No vertebral tenderness Pelvic Exam: deferred Rectal Exam: deferred OBJECTIVE DATA Vital Signs: Vital Signs - 24 hr Temp Pulse Resp BP Pulse Ox 01/08/22 07:30 72 20 96 01/08/22 07:29 99 F 77 16 141/63 91 L 01/08/22 03:37 98.2 F 72 20 133/64 93 L 01/08/22 00:00 98.4 F 68 20 133/61 92 L 01/07/22 19:37 97.3 F 70 18 131/63 97 01/07/22 19:00 70 18 97 01/07/22 18:29 97.3 F 68 18 131/63 97 01/07/22 17:46 96 01/07/22 17:00 68 25 H 97 01/07/22 16:01 63 24 123/74 97 01/07/22 13:50 96.8 F 57 L 16 100/75 96 Pain Assessment - Last Documented Pain Intensity 0 Intake and Output: Intake & Output 01/05/22 01/06/22 01/07/22 01/08/22 11:59 11:59 11:59 11:59 Intake Total 1093 Balance 1093 Weight 63.9 kg Lab Results: Lab Results-Last 24 Hours 01/07/22 01/07/22 01/07/22 Range/Units 14:28 14:39 14:39 WBC 13.3 H (4.0-10.5) K/mm3 RBC 3.72 L (4.1-5.4) M/mm3 Hgb 12.1 (12.0-16.0) gm/dl Hct 37.5 (35-47) % MCV 100.8 H (78-100) fl MCH 32.5 H (26-32) pg MCHC 32.3 (32-36) g/dl RDW 16.0 H (11.5-14.0) % Plt Count 245 (150-450) K/mm3 MPV 8.6 (7.5-11.0) fl Gran % 63.3 (36.0-66.0) % Eos # (Auto) 0.26 (0-0.5) Absolute Lymphs (auto) 3.06 (1.0-4.6) Absolute Monos (auto) 1.53 H (0.0-1.3) Lymphocytes % 22.9 L (24.0-44.0) % Monocytes % 11.5 (0.0-12.0) % Eosinophils % 1.9 (0.00-5.0) % Basophils % 0.4 (0.0-0.4) % Absolute Granulocytes 8.43 H (1.4-6.9) Basophils # 0.06 (0-0.4) D-Dimer (215-500) ng/mL Sodium 134 L (137-145) mmol/L Potassium 4.0 (3.5-5.1) mmol/L Chloride 108 H (98-107) mmol/L Carbon Dioxide 23 (22-30) mmol/L Anion Gap 6.9 (5-15) MEQ/L BUN 13 (7-17) mg/dL Creatinine 0.75 (0.52-1.04) mg/dL Estimated GFR > 60.0 ML/MIN Glucose 108 H (74-106) mg/dL POC Glucometer 91 (74 to 106) mg/dL Calcium 8.5 (8.4-10.2) mg/dL Magnesium 1.9 (1.6-2.3) mg/dL Total Bilirubin 0.60 (0.2-1.3) mg/dL AST 31 (14-36) U/L ALT 21 (0-35) U/L Alkaline Phosphatase 60 (38-126) U/L Troponin I (0.000-0.034) ng/mL NT-Pro-B Natriuret Pep (0-1800) pg/mL Serum Total Protein 5.7 L (6.3-8.2) g/dL Albumin 3.2 L (3.5-5.0) g/dL Urinalys Dipstick Clnc Urine Color (YELLOW) Urine Appearance (CLEAR) Urine pH (5-6) Ur Specific [place] (1.005-1.025) POC Urine Protein Conf (Negative) Urine Ketones (NEGATIVE) Urine Nitrite (NEGATIVE) Urine Bilirubin (NEGATIVE) Urine Urobilinogen (0-1) mg/dL Urine Leukocytes (NEGATIVE) Urine WBC (Auto) (0-5) /HPF Urine RBC (Auto) (0-2) /HPF U Epithel Cells (Auto) (FEW) /HPF Urine Bacteria (Auto) (NEGATIVE) /HPF Urine RBC (0-5) Estuardo/ul Ur Culture Indicated? Urine Glucose (NEGATIVE) mg/dL Influenza Type A Ag (NEGATIVE) Influenza Type B Ag (NEGATIVE) RSV (PCR) (Negative) SARS-CoV-2 (PCR) (NEGATIVE) Slides for Path Review YES 01/07/22 01/07/22 01/07/22 Range/Units 14:39 14:39 14:39 WBC (4.0-10.5) K/mm3 RBC (4.1-5.4) M/mm3 Hgb (12.0-16.0) gm/dl Hct (35-47) % MCV (78-100) fl MCH (26-32) pg MCHC (32-36) g/dl RDW (11.5-14.0) % Plt Count (150-450) K/mm3 MPV (7.5-11.0) fl Gran % (36.0-66.0) % Eos # (Auto) (0-0.5) Absolute Lymphs (auto) (1.0-4.6) Absolute Monos (auto) (0.0-1.3) Lymphocytes % (24.0-44.0) % Monocytes % (0.0-12.0) % Eosinophils % (0.00-5.0) % Basophils % (0.0-0.4) % Absolute Granulocytes (1.4-6.9) Basophils # (0-0.4) D-Dimer 1421 H* (215-500) ng/mL Sodium (137-145) mmol/L Potassium (3.5-5.1) mmol/L Chloride (98-107) mmol/L Carbon Dioxide (22-30) mmol/L Anion Gap (5-15) MEQ/L BUN (7-17) mg/dL Creatinine (0.52-1.04) mg/dL Estimated GFR ML/MIN Glucose (74-106) mg/dL POC Glucometer (74 to 106) mg/dL Calcium (8.4-10.2) mg/dL Magnesium (1.6-2.3) mg/dL Total Bilirubin (0.2-1.3) mg/dL AST (14-36) U/L ALT (0-35) U/L Alkaline Phosphatase (38-126) U/L Troponin I < 0.012 (0.000-0.034) ng/mL NT-Pro-B Natriuret Pep 301 (0-1800) pg/mL Serum Total Protein (6.3-8.2) g/dL Albumin (3.5-5.0) g/dL Urinalys Dipstick Clnc Urine Color (YELLOW) Urine Appearance (CLEAR) Urine pH (5-6) Ur Specific [place] (1.005-1.025) POC Urine Protein Conf (Negative) Urine Ketones (NEGATIVE) Urine Nitrite (NEGATIVE) Urine Bilirubin (NEGATIVE) Urine Urobilinogen (0-1) mg/dL Urine Leukocytes (NEGATIVE) Urine WBC (Auto) (0-5) /HPF Urine RBC (Auto) (0-2) /HPF U Epithel Cells (Auto) (FEW) /HPF Urine Bacteria (Auto) (NEGATIVE) /HPF Urine RBC (0-5) Estuardo/ul Ur Culture Indicated? Urine Glucose (NEGATIVE) mg/dL Influenza Type A Ag (NEGATIVE) Influenza Type B Ag (NEGATIVE) RSV (PCR) (Negative) SARS-CoV-2 (PCR) (NEGATIVE) Slides for Path Review 01/07/22 01/07/22 01/07/22 Range/Units 15:10 16:47 17:30 WBC (4.0-10.5) K/mm3 RBC (4.1-5.4) M/mm3 Hgb (12.0-16.0) gm/dl Hct (35-47) % MCV (78-100) fl MCH (26-32) pg MCHC (32-36) g/dl RDW (11.5-14.0) % Plt Count (150-450) K/mm3 MPV (7.5-11.0) fl Gran % (36.0-66.0) % Eos # (Auto) (0-0.5) Absolute Lymphs (auto) (1.0-4.6) Absolute Monos (auto) (0.0-1.3) Lymphocytes % (24.0-44.0) % Monocytes % (0.0-12.0) % Eosinophils % (0.00-5.0) % Basophils % (0.0-0.4) % Absolute Granulocytes (1.4-6.9) Basophils # (0-0.4) D-Dimer (215-500) ng/mL Sodium (137-145) mmol/L Potassium (3.5-5.1) mmol/L Chloride (98-107) mmol/L Carbon Dioxide (22-30) mmol/L Anion Gap (5-15) MEQ/L BUN (7-17) mg/dL Creatinine (0.52-1.04) mg/dL Estimated GFR ML/MIN Glucose (74-106) mg/dL POC Glucometer (74 to 106) mg/dL Calcium (8.4-10.2) mg/dL Magnesium (1.6-2.3) mg/dL Total Bilirubin (0.2-1.3) mg/dL AST (14-36) U/L ALT (0-35) U/L Alkaline Phosphatase (38-126) U/L Troponin I < 0.012 (0.000-0.034) ng/mL NT-Pro-B Natriuret Pep (0-1800) pg/mL Serum Total Protein (6.3-8.2) g/dL Albumin (3.5-5.0) g/dL Urinalys Dipstick Clnc MAIN LAB Urine Color YELLOW (YELLOW) Urine Appearance CLEAR (CLEAR) Urine pH 7.0 (5-6) Ur Specific [place] 1.015 (1.005-1.025) POC Urine Protein Conf NEGATIVE (Negative) Urine Ketones NEGATIVE (NEGATIVE) Urine Nitrite NEGATIVE (NEGATIVE) Urine Bilirubin NEGATIVE (NEGATIVE) Urine Urobilinogen 0.2 (0-1) mg/dL Urine Leukocytes NEGATIVE (NEGATIVE) Urine WBC (Auto) NONE (0-5) /HPF Urine RBC (Auto) NONE (0-2) /HPF U Epithel Cells (Auto) NONE (FEW) /HPF Urine Bacteria (Auto) NONE (NEGATIVE) /HPF Urine RBC NEGATIVE (0-5) Estuardo/ul Ur Culture Indicated? ORDERED SEPARATELY Urine Glucose NEGATIVE (NEGATIVE) mg/dL Influenza Type A Ag POSITIVE (NEGATIVE) Influenza Type B Ag NEGATIVE (NEGATIVE) RSV (PCR) NEGATIVE (Negative) SARS-CoV-2 (PCR) NEGATIVE (NEGATIVE) Slides for Path Review 01/07/22 01/08/22 01/08/22 Range/Units 23:30 04:00 04:00 WBC 7.7 (4.0-10.5) K/mm3 RBC 3.60 L (4.1-5.4) M/mm3 Hgb 11.9 L (12.0-16.0) gm/dl Hct 37.4 (35-47) % MCV 103.9 H (78-100) fl MCH 33.1 H (26-32) pg MCHC 31.8 L (32-36) g/dl RDW 16.4 H (11.5-14.0) % Plt Count 234 (150-450) K/mm3 MPV 8.6 (7.5-11.0) fl Gran % (36.0-66.0) % Eos # (Auto) (0-0.5) Absolute Lymphs (auto) (1.0-4.6) Absolute Monos (auto) (0.0-1.3) Lymphocytes % (24.0-44.0) % Monocytes % (0.0-12.0) % Eosinophils % (0.00-5.0) % Basophils % (0.0-0.4) % Absolute Granulocytes (1.4-6.9) Basophils # (0-0.4) D-Dimer (215-500) ng/mL Sodium (137-145) mmol/L Potassium (3.5-5.1) mmol/L Chloride (98-107) mmol/L Carbon Dioxide (22-30) mmol/L Anion Gap (5-15) MEQ/L BUN (7-17) mg/dL Creatinine (0.52-1.04) mg/dL Estimated GFR ML/MIN Glucose (74-106) mg/dL POC Glucometer (74 to 106) mg/dL Calcium (8.4-10.2) mg/dL Magnesium (1.6-2.3) mg/dL Total Bilirubin (0.2-1.3) mg/dL AST (14-36) U/L ALT (0-35) U/L Alkaline Phosphatase (38-126) U/L Troponin I < 0.012 < 0.012 (0.000-0.034) ng/mL NT-Pro-B Natriuret Pep (0-1800) pg/mL Serum Total Protein (6.3-8.2) g/dL Albumin (3.5-5.0) g/dL Urinalys Dipstick Clnc Urine Color (YELLOW) Urine Appearance (CLEAR) Urine pH (5-6) Ur Specific [place] (1.005-1.025) POC Urine Protein Conf (Negative) Urine Ketones (NEGATIVE) Urine Nitrite (NEGATIVE) Urine Bilirubin (NEGATIVE) Urine Urobilinogen (0-1) mg/dL Urine Leukocytes (NEGATIVE) Urine WBC (Auto) (0-5) /HPF Urine RBC (Auto) (0-2) /HPF U Epithel Cells (Auto) (FEW) /HPF Urine Bacteria (Auto) (NEGATIVE) /HPF Urine RBC (0-5) Estuardo/ul Ur Culture Indicated? Urine Glucose (NEGATIVE) mg/dL Influenza Type A Ag (NEGATIVE) Influenza Type B Ag (NEGATIVE) RSV (PCR) (Negative) SARS-CoV-2 (PCR) (NEGATIVE) Slides for Path Review 01/08/22 Range/Units 04:00 WBC (4.0-10.5) K/mm3 RBC (4.1-5.4) M/mm3 Hgb (12.0-16.0) gm/dl Hct (35-47) % MCV (78-100) fl MCH (26-32) pg MCHC (32-36) g/dl RDW (11.5-14.0) % Plt Count (150-450) K/mm3 MPV (7.5-11.0) fl Gran % (36.0-66.0) % Eos # (Auto) (0-0.5) Absolute Lymphs (auto) (1.0-4.6) Absolute Monos (auto) (0.0-1.3) Lymphocytes % (24.0-44.0) % Monocytes % (0.0-12.0) % Eosinophils % (0.00-5.0) % Basophils % (0.0-0.4) % Absolute Granulocytes (1.4-6.9) Basophils # (0-0.4) D-Dimer (215-500) ng/mL Sodium 136 L (137-145) mmol/L Potassium 4.3 (3.5-5.1) mmol/L Chloride 111 H (98-107) mmol/L Carbon Dioxide 21 L (22-30) mmol/L Anion Gap 8.2 (5-15) MEQ/L BUN 6 L (7-17) mg/dL Creatinine 0.65 (0.52-1.04) mg/dL Estimated GFR > 60.0 ML/MIN Glucose 76 (74-106) mg/dL POC Glucometer (74 to 106) mg/dL Calcium 8.4 (8.4-10.2) mg/dL Magnesium (1.6-2.3) mg/dL Total Bilirubin 0.50 (0.2-1.3) mg/dL AST 25 (14-36) U/L ALT 18 (0-35) U/L Alkaline Phosphatase 54 (38-126) U/L Troponin I (0.000-0.034) ng/mL NT-Pro-B Natriuret Pep (0-1800) pg/mL Serum Total Protein 5.3 L (6.3-8.2) g/dL Albumin 3.0 L (3.5-5.0) g/dL Urinalys Dipstick Clnc Urine Color (YELLOW) Urine Appearance (CLEAR) Urine pH (5-6) Ur Specific [place] (1.005-1.025) POC Urine Protein Conf (Negative) Urine Ketones (NEGATIVE) Urine Nitrite (NEGATIVE) Urine Bilirubin (NEGATIVE) Urine Urobilinogen (0-1) mg/dL Urine Leukocytes (NEGATIVE) Urine WBC (Auto) (0-5) /HPF Urine RBC (Auto) (0-2) /HPF U Epithel Cells (Auto) (FEW) /HPF Urine Bacteria (Auto) (NEGATIVE) /HPF Urine RBC (0-5) Estuardo/ul Ur Culture Indicated? Urine Glucose (NEGATIVE) mg/dL Influenza Type A Ag (NEGATIVE) Influenza Type B Ag (NEGATIVE) RSV (PCR) (Negative) SARS-CoV-2 (PCR) (NEGATIVE) Slides for Path Review Radiology Exams: Radiology Procedures Category Date Time Status CHEST 1 VIEW (PORTABLE) Stat Exams 01/07/22 14:11 Completed CHEST WITHOUT CONTRAST [CT] Stat Exams 01/07/22 16:06 Completed Assessment/Plan (1) Influenzal pneumonia Current Visit: Yes Status: Acute Assessment & Plan: Chief Complaint Diagnosis c/o diaphoresis, weakness for 2-3 days Allergies Allergy/AdvReac Type Severity Reaction Status Date / Time iodine Allergy Severe Hives Verified 01/07/22 13:57 Vital Signs (Last 24 hours) Temp Pulse Resp BP Pulse Ox 01/08/22 07:30 72 20 96 01/08/22 07:29 99 F 77 16 141/63 91 L 01/08/22 03:37 98.2 F 72 20 133/64 93 L 01/08/22 00:00 98.4 F 68 20 133/61 92 L 01/07/22 19:37 97.3 F 70 18 131/63 97 01/07/22 19:00 70 18 97 01/07/22 18:29 97.3 F 68 18 131/63 97 01/07/22 17:46 96 01/07/22 17:00 68 25 H 97 01/07/22 16:01 63 24 123/74 97 01/07/22 13:50 96.8 F 57 L 16 100/75 96 Current Medications Generic Name Dose Route Start Last Admin Trade Name Freq PRN Reason Stop Dose Admin Albuterol Sulfate 2.5 mg 01/07/22 19:08 Albuterol Sulfate 2.5 Mg/3 Ml Neb IH 02/06/22 19:07 Q4H PRN PRN SHORTNESS OF BREATH/WHEEZING Albuterol Sulfate 2.5 mg 01/08/22 07:00 01/08/22 07:30 Albuterol Sulfate 2.5 Mg/3 Ml Neb IH 02/07/22 06:59 2.5 mg TIDRT MICKY Administration Enoxaparin Sodium 40 mg 01/08/22 10:00 01/07/22 18:25 Enoxaparin Sodium 40 Mg/0.4 Ml Syringe SQ 02/07/22 09:59 40 mg DAILY MICKY Administration Sodium Chloride 1,000 mls @ 50 mls/hr 01/07/22 18:20 01/07/22 18:22 Sodium Chloride 0.9% 1000 Ml IV 02/06/22 18:19 50 mls/hr .Q20H MICKY Administration Azithromycin 500 mg in 250 mls @ 250 mls/hr 01/08/22 22:00 Zithromax 500 Mg/ 250 Ml Nacl Premix IV 02/07/22 21:59 Q24H MICKY Ceftriaxone Sodium/Dextrose 1 g in 50 mls @ 100 mls/hr 01/08/22 22:00 Rocephin 1 Gm-D5w 50 Ml Bag IV 01/11/22 21:59 Q24H MICKY Oseltamivir Phosphate 75 mg 01/07/22 22:00 01/07/22 18:26 Oseltamivir 75 Mg Cap PO 01/12/22 21:59 75 mg BID MICKY Administration Discontinued Medications Generic Name Dose Route Start Last Admin Trade Name Freq PRN Reason Stop Dose Admin Enoxaparin Sodium Confirm 01/07/22 18:14 Enoxaparin Sodium 40 Mg/0.4 Ml Syringe Administered 01/07/22 18:15 Dose 40 mg SQ .STK-MED ONE Sodium Chloride 1,000 mls @ 999 mls/hr 01/07/22 14:10 01/07/22 16:25 Sodium Chloride 0.9% 1000 Ml IV 01/07/22 15:10 Infused .Q1H1M STA Infusion Sodium Chloride Confirm 01/07/22 15:03 Sodium Chloride 0.9% 1000 Ml Administered 01/07/22 15:04 Dose 1,000 mls @ ud .ROUTE .STK-MED ONE Azithromycin Confirm 01/07/22 18:14 Zithromax 500 Mg/ 250 Ml Nacl Premix Administered 01/07/22 18:15 Dose 500 mg in 250 mls @ ud IV .STK-MED ONE Sodium Chloride Confirm 01/07/22 18:14 Sodium Chloride 0.9% 1000 Ml Administered 01/07/22 18:15 Dose 1,000 mls @ ud .ROUTE .STK-MED ONE Ceftriaxone Sodium/Dextrose Confirm 01/07/22 18:15 Rocephin 1 Gm-D5w 50 Ml Bag Administered 01/07/22 18:16 Dose 1 g in 50 mls @ ud IV .STK-MED ONE Ceftriaxone Sodium/Dextrose 1 g in 50 mls @ 100 mls/hr 01/08/22 10:00 Rocephin 1 Gm-D5w 50 Ml Bag IV 01/11/22 09:59 Q24H10 MICKY Azithromycin 500 mg in 250 mls @ 250 mls/hr 01/08/22 10:00 Zithromax 500 Mg/ 250 Ml Nacl Premix IV 02/07/22 09:59 Q24H10 MICKY Azithromycin 500 mg in 250 mls @ 250 mls/hr 01/07/22 18:21 01/07/22 18:24 Zithromax 500 Mg/ 250 Ml Nacl Premix IV 02/06/22 18:20 250 mls/hr Q24H10 MICKY Administration Ceftriaxone Sodium/Dextrose 1 g in 50 mls @ 100 mls/hr 01/07/22 18:21 01/07/22 18:22 Rocephin 1 Gm-D5w 50 Ml Bag IV 01/10/22 18:20 100 mls/hr Q24H10 MICKY Administration Oseltamivir Phosphate Confirm 01/07/22 18:14 Oseltamivir 75 Mg Cap Administered 01/07/22 18:15 Dose 75 mg PO .STK-MED ONE Intake & Output (Last 24 hours) 01/05/22 01/06/22 01/07/22 01/08/22 11:59 11:59 11:59 11:59 Intake Total 1093 Balance 1093 Weight 63.9 kg Microbiology Results (Last 24 hours) 01/07/22 15:10 Catherized Urine Culture - Preliminary NO GROWTH TO DATE Laboratory Results (Last 24 hours) 01/08/22 01/08/22 01/08/22 04:00 04:00 04:00 WBC 7.7 RBC 3.60 L Hgb 11.9 L Hct 37.4 MCV 103.9 H MCH 33.1 H MCHC 31.8 L RDW 16.4 H Plt Count 234 MPV 8.6 Gran % Eos # (Auto) Absolute Lymphs (auto) Absolute Monos (auto) Lymphocytes % Monocytes % Eosinophils % Basophils % Absolute Granulocytes Basophils # D-Dimer Sodium 136 L Potassium 4.3 Chloride 111 H Carbon Dioxide 21 L Anion Gap 8.2 BUN 6 L Creatinine 0.65 Estimated GFR > 60.0 Glucose 76 POC Glucometer Calcium 8.4 Magnesium Total Bilirubin 0.50 AST 25 ALT 18 Alkaline Phosphatase 54 Troponin I < 0.012 NT-Pro-B Natriuret Pep Serum Total Protein 5.3 L Albumin 3.0 L Urinalys Dipstick Clnc Urine Color Urine Appearance Urine pH Ur Specific [place] POC Urine Protein Conf Urine Ketones Urine Nitrite Urine Bilirubin Urine Urobilinogen Urine Leukocytes Urine WBC (Auto) Urine RBC (Auto) U Epithel Cells (Auto) Urine Bacteria (Auto) Urine RBC Ur Culture Indicated? Urine Glucose Influenza Type A Ag Influenza Type B Ag RSV (PCR) SARS-CoV-2 (PCR) Slides for Path Review 01/07/22 01/07/22 01/07/22 23:30 17:30 16:47 WBC RBC Hgb Hct MCV MCH MCHC RDW Plt Count MPV Gran % Eos # (Auto) Absolute Lymphs (auto) Absolute Monos (auto) Lymphocytes % Monocytes % Eosinophils % Basophils % Absolute Granulocytes Basophils # D-Dimer Sodium Potassium Chloride Carbon Dioxide Anion Gap BUN Creatinine Estimated GFR Glucose POC Glucometer Calcium Magnesium Total Bilirubin AST ALT Alkaline Phosphatase Troponin I < 0.012 < 0.012 NT-Pro-B Natriuret Pep Serum Total Protein Albumin Urinalys Dipstick Clnc Urine Color Urine Appearance Urine pH Ur Specific [place] POC Urine Protein Conf Urine Ketones Urine Nitrite Urine Bilirubin Urine Urobilinogen Urine Leukocytes Urine WBC (Auto) Urine RBC (Auto) U Epithel Cells (Auto) Urine Bacteria (Auto) Urine RBC Ur Culture Indicated? Urine Glucose Influenza Type A Ag POSITIVE Influenza Type B Ag NEGATIVE RSV (PCR) NEGATIVE SARS-CoV-2 (PCR) NEGATIVE Slides for Path Review 01/07/22 01/07/22 01/07/22 15:10 14:39 14:39 WBC RBC Hgb Hct MCV MCH MCHC RDW Plt Count MPV Gran % Eos # (Auto) Absolute Lymphs (auto) Absolute Monos (auto) Lymphocytes % Monocytes % Eosinophils % Basophils % Absolute Granulocytes Basophils # D-Dimer 1421 H* Sodium Potassium Chloride Carbon Dioxide Anion Gap BUN Creatinine Estimated GFR Glucose POC Glucometer Calcium Magnesium Total Bilirubin AST ALT Alkaline Phosphatase Troponin I NT-Pro-B Natriuret Pep 301 Serum Total Protein Albumin Urinalys Dipstick Clnc MAIN LAB Urine Color YELLOW Urine Appearance CLEAR Urine pH 7.0 Ur Specific [place] 1.015 POC Urine Protein Conf NEGATIVE Urine Ketones NEGATIVE Urine Nitrite NEGATIVE Urine Bilirubin NEGATIVE Urine Urobilinogen 0.2 Urine Leukocytes NEGATIVE Urine WBC (Auto) NONE Urine RBC (Auto) NONE U Epithel Cells (Auto) NONE Urine Bacteria (Auto) NONE Urine RBC NEGATIVE Ur Culture Indicated? ORDERED SEPARATELY Urine Glucose NEGATIVE Influenza Type A Ag Influenza Type B Ag RSV (PCR) SARS-CoV-2 (PCR) Slides for Path Review 01/07/22 01/07/22 01/07/22 14:39 14:39 14:39 WBC 13.3 H RBC 3.72 L Hgb 12.1 Hct 37.5 MCV 100.8 H MCH 32.5 H MCHC 32.3 RDW 16.0 H Plt Count 245 MPV 8.6 Gran % 63.3 Eos # (Auto) 0.26 Absolute Lymphs (auto) 3.06 Absolute Monos (auto) 1.53 H Lymphocytes % 22.9 L Monocytes % 11.5 Eosinophils % 1.9 Basophils % 0.4 Absolute Granulocytes 8.43 H Basophils # 0.06 D-Dimer Sodium 134 L Potassium 4.0 Chloride 108 H Carbon Dioxide 23 Anion Gap 6.9 BUN 13 Creatinine 0.75 Estimated GFR > 60.0 Glucose 108 H POC Glucometer Calcium 8.5 Magnesium 1.9 Total Bilirubin 0.60 AST 31 ALT 21 Alkaline Phosphatase 60 Troponin I < 0.012 NT-Pro-B Natriuret Pep Serum Total Protein 5.7 L Albumin 3.2 L Urinalys Dipstick Clnc Urine Color Urine Appearance Urine pH Ur Specific [place] POC Urine Protein Conf Urine Ketones Urine Nitrite Urine Bilirubin Urine Urobilinogen Urine Leukocytes Urine WBC (Auto) Urine RBC (Auto) U Epithel Cells (Auto) Urine Bacteria (Auto) Urine RBC Ur Culture Indicated? Urine Glucose Influenza Type A Ag Influenza Type B Ag RSV (PCR) SARS-CoV-2 (PCR) Slides for Path Review YES 01/07/22 14:28 WBC RBC Hgb Hct MCV MCH MCHC RDW Plt Count MPV Gran % Eos # (Auto) Absolute Lymphs (auto) Absolute Monos (auto) Lymphocytes % Monocytes % Eosinophils % Basophils % Absolute Granulocytes Basophils # D-Dimer Sodium Potassium Chloride Carbon Dioxide Anion Gap BUN Creatinine Estimated GFR Glucose POC Glucometer 91 Calcium Magnesium Total Bilirubin AST ALT Alkaline Phosphatase Troponin I NT-Pro-B Natriuret Pep Serum Total Protein Albumin Urinalys Dipstick Clnc Urine Color Urine Appearance Urine pH Ur Specific [place] POC Urine Protein Conf Urine Ketones Urine Nitrite Urine Bilirubin Urine Urobilinogen Urine Leukocytes Urine WBC (Auto) Urine RBC (Auto) U Epithel Cells (Auto) Urine Bacteria (Auto) Urine RBC Ur Culture Indicated? Urine Glucose Influenza Type A Ag Influenza Type B Ag RSV (PCR) SARS-CoV-2 (PCR) Slides for Path Review Orders (Last 24 hours) Category Date Time Status Up Ad Jackie ROUTINE Activity 01/07/22 18:20 Active Dry Janitor STAT Care 01/07/22 14:11 Completed Code Status Order ROUTINE Care 01/07/22 18:20 Active EKG-ER Only STAT Care 01/07/22 14:10 Completed IV Care Q6H Care 01/07/22 18:20 Active IV Insertion STAT Care 01/07/22 14:10 Completed Isolation, Initiate & Maintain Q6H Care 01/07/22 18:10 Active Miscellaneous Nursing Order ROUTINE Care 01/07/22 18:20 Active POCT Glucose Check STAT Care 01/07/22 14:[address] in Observation ROUTINE Care 01/07/22 18:20 Completed [place] ROUTINE Care 01/07/22 18:20 Active Weight,Daily 0600 Care 01/07/22 18:20 Active Heart-Healthy Diet Diet 01/07/22 Dinner Active CHEST 1 VIEW (PORTABLE) Stat Exams 01/07/22 14:11 Completed CHEST WITHOUT CONTRAST [CT] Stat Exams 01/07/22 16:06 Completed BNP [NT PRO BNP] Stat Lab 01/07/22 14:39 Completed CBC AM.LAB Lab 01/08/22 04:00 Completed CBC W DIFF Stat Lab 01/07/22 14:39 Completed CMP AM.LAB Lab 01/08/22 04:00 Completed CMP Stat Lab 01/07/22 14:39 Completed CULTURE,URINE Stat Lab 01/07/22 15:10 Results D-DIMER QUANTITATIVE Stat Lab 01/07/22 14:39 Completed MAGNESIUM Stat Lab 01/07/22 14:39 Completed POCT GLUCOSE Stat Lab 01/07/22 14:28 Completed TROPONIN Q3H Lab 01/07/22 14:39 Completed TROPONIN Q3H Lab 01/07/22 17:30 Completed TROPONIN Q3H Lab 01/07/22 23:30 Completed TROPONIN Q3H Lab 01/08/22 04:00 Completed Albuterol 2.5 mg/3 ml Neb [Proventil 2.5 mg/3 ml Neb Med 01/07/22 19:08 Active ] 2.5 mg IH Q4H PRN PRN Albuterol 2.5 mg/3 ml Neb [Proventil 2.5 mg/3 ml Neb Med 01/08/22 07:00 Active ] 2.5 mg IH TIDRT Azithromycin 500 mg/250 ml [Zithromax 500 MG/ 250 ML Med 01/08/22 22:00 Active NaCl Premix] 500 mg in 250 ml IV Q24H Azithromycin 500 mg/250 ml [Zithromax 500 MG/ 250 ML Med 01/07/22 18:21 Discontinued NaCl Premix] 500 mg in 250 ml IV Q24H10 Azithromycin 500 mg/250 ml [Zithromax 500 MG/ 250 ML Med 01/08/22 10:00 Discontinued NaCl Premix] 500 mg in 250 ml IV Q24H10 Azithromycin 500 mg/250 ml [Zithromax 500 MG/ 250 ML Med 01/07/22 18:14 Discontinued NaCl Premix] 500 mg in 250 ml IV UD Ceftriaxone 1 GM/50 ML PREMIX* [ROCEPHIN 1 Gm-D5w 50 ml Med 01/08/22 22:00 Active Bag] 1 g in 50 ml IV Q24H Ceftriaxone 1 GM/50 ML PREMIX* [ROCEPHIN 1 Gm-D5w 50 ml Med 01/07/22 18:21 Discontinued Bag] 1 g in 50 ml IV Q24H10 Ceftriaxone 1 GM/50 ML PREMIX* [ROCEPHIN 1 Gm-D5w 50 ml Med 01/08/22 10:00 Discontinued Bag] 1 g in 50 ml IV Q24H10 Ceftriaxone 1 GM/50 ML PREMIX* [ROCEPHIN 1 Gm-D5w 50 ml Med 01/07/22 18:15 Discontinued Bag] 1 g in 50 ml IV UD Enoxaparin Sodium [Enoxaparin Sodium] Med 01/07/22 18:14 Discontinued 40 mg SQ .STK-MED ONE Enoxaparin Sodium [Enoxaparin Sodium] Med 01/08/22 10:00 Active 40 mg SQ DAILY NaCl 0.9% 1000 ml [Sodium Chloride 0.9% 1000 ML] 1,000 Med 01/07/22 15:03 Discontinued ml .ROUTE UD NaCl 0.9% 1000 ml [Sodium Chloride 0.9% 1000 ML] 1,000 Med 01/07/22 18:14 Discontinued ml .ROUTE UD NaCl 0.9% 1000 ml [Sodium Chloride 0.9% 1000 ML] 1,000 Med 01/07/22 18:20 Active ml IV 50 mls/hr NaCl 0.9% 1000 ml [Sodium Chloride 0.9% 1000 ML] 1,000 Med 01/07/22 14:10 Discontinued ml IV 999 mls/hr Oseltamivir 75 mg [Tamiflu 75MG Capsule] Med 01/07/22 18:14 Discontinued 75 mg PO .[facility] ONE Oseltamivir 75 mg [Tamiflu 75MG Capsule] Med 01/07/22 22:00 Active 75 mg PO BID Oxygen Nasal Cannula 3 lpm RT 01/07/22 18:20 Active Pulse Oximetry .continuos RT 01/07/22 18:55 Active Respiratory Therapy Assessment DAILY RT 01/07/22 18:54 Active Respiratory Therapy Consult ROUTINE RT 01/07/22 18:20 Completed Code(s): J11.00 - FLU DUE TO UNIDENTIFIED FLU VIRUS W UNSP TYPE OF PNEUMONIA (2) Right lower lobe pneumonia Current Visit: Yes Status: Acute Qualifiers: Pneumonia type: due to unspecified organism Qualified Code(s): J18.9 - Pneumonia, unspecified organism Code(s): J18.9 - PNEUMONIA, UNSPECIFIED ORGANISM
[2022-01-08] MEDS: TYLENOL 325 MG PO PRN ×3 (09:16→21:06)
[2022-01-08] MEDS ORDERED: Zithromax 500 MG/ 250 ML NaCl Premix 500 MG/250 ML IVPB IV SCH ×2 (10:00→22:00)
[2022-01-08] MEDS ORDERED: ROCEPHIN 1 Gm-D5w 50 ml Bag** 1 G/50 ML IVPB IV SCH (10:00)
[2022-01-08] MEDS ORDERED: MELATONIN PO PRN (10:34)
[2022-01-08] MEDS ORDERED: XYLOCAINE VISCOUS 2% 20 ML CUP PO PRN (11:02)
[2022-01-08] MEDS: Protonix 40MG Tablet PO SCH (11:11)
[2022-01-08] MEDS: Mucinex 600MG ER Tabs PO SCH ×2 (11:11→22:25)
[2022-01-08] MEDS: Calcium 500MG W/Vit D Tablet PO SCH ×2 (11:12→22:32)
[2022-01-08] MEDS: Tamiflu 75MG Capsule PO SCH ×2 (11:12→22:42)
[2022-01-08] MEDS: Cozaar 50 MG PO SCH ×2 (11:12→22:28)
[2022-01-08] MEDS: Klor Con 10 MEQ PO SCH (11:12)
[2022-01-08] MEDS: LASIX 20 MG PO SCH (11:12)
[2022-01-08] MEDS: COREG 12.5 MG PO SCH ×2 (11:12→22:46)
[2022-01-08] MEDS: Miralax Powder 17GM PACKET PO SCH (11:13)
[2022-01-08] MEDS: ENOXAPARIN SODIUM SQ SCH (11:13)
[2022-01-08] MEDS: Carafate SUSPENSION 1000 MG/10 ML PO SCH ×3 (11:57→22:41)
[2022-01-08] MEDS: Sodium Chloride 0.9% 1000 ML 1,000 ML IV SCH (13:45)
[2022-01-08] MEDS ORDERED: Advair Hfa 115/21 Common canister IH SCH (19:00)
[2022-01-08] MEDS: ROCEPHIN 1 Gm-D5w 50 ml Bag** 1 G/50 ML IVPB IV SCH ×2 (19:27→22:56)
[2022-01-08] MEDS ORDERED: NON-FORMULARY ITEM (Carvedilol [Coreg] 25 MG Tablet) PO SCH (22:00)
[2022-01-08] MEDS ORDERED: ZOCOR 20MG PO SCH (22:00)
[2022-01-08] MEDS ORDERED: COP PO SCH (22:00)
[2022-01-08] MEDS ORDERED: MANG PO SCH (22:00)
[2022-01-08] MEDS ORDERED: MAG11 PO SCH (22:00)
[2022-01-08] MEDS ORDERED: D3 PO SCH (22:00)
[2022-01-08] MEDS ORDERED: [UNRECOGNIZED DRUG - OTHER] PO SCH (22:00)
[2022-01-08] MEDS ORDERED: NON-FORMULARY ITEM (Atorvastatin Calcium [Atorvastatin Calcium] 80 MG Tablet) PO SCH (22:00)
[2022-01-08] MEDS ORDERED: [UNRECOGNIZED DRUG - OTHER] IH SCH (22:00)
[2022-01-08] MEDS ORDERED: BOR PO SCH (22:00)
[2022-01-08] MEDS ORDERED: NON-FORMULARY ITEM (Losartan Potassium [Cozaar] 25 MG Tablet) PO SCH (22:00)
[2022-01-08] MEDS ORDERED: ZINC PO SCH (22:00)
[2022-01-08] MEDS ORDERED: CAL PO SCH (22:00)
[2022-01-09] MEDS: Sodium Chloride 0.9% 1000 ML 1,000 ML IV SCH (04:45)
[2022-01-09] MEDS: PROVENTIL 2.5 MG/3 ML NEB IH SCH ×2 (06:37→13:02)
[2022-01-09] MEDS ORDERED: FLUTICASONE-SALMETEROL 250-50 IH SCH (07:00)
[2022-01-09] MEDS ORDERED: FLUTICASONE-SALMETEROL 250-50 IH ONE (07:12)
[2022-01-09] MEDS: Carafate SUSPENSION 1000 MG/10 ML PO SCH ×2 (07:45→10:46)
[2022-01-09] MEDS ORDERED: NON-FORMULARY ITEM (Potassium Chloride [Klor-Con] 20 MEQ Packet) PO SCH (10:00)
[2022-01-09] MEDS ORDERED: NON-FORMULARY ITEM (Multivitamin [Multiple Vitamins] 1 EACH Tablet) PO SCH (10:00)
[2022-01-09] MEDS ORDERED: THERAGRAN MULTIVITAMIN PO SCH (10:00)
[2022-01-09] MEDS: Mucinex 600MG ER Tabs PO SCH (10:46)
[2022-01-09] MEDS: Protonix 40MG Tablet PO SCH (10:47)
[2022-01-09] MEDS: Calcium 500MG W/Vit D Tablet PO SCH (10:47)
[2022-01-09] MEDS: COREG 12.5 MG PO SCH (10:47)
[2022-01-09] MEDS: LASIX 20 MG PO SCH (10:47)
[2022-01-09] MEDS: Cozaar 50 MG PO SCH (10:47)
[2022-01-09] MEDS: Klor Con 10 MEQ PO SCH (10:48)
[2022-01-09] MEDS: ENOXAPARIN SODIUM SQ SCH (10:48)
[2022-01-09] MEDS: Tamiflu 75MG Capsule PO SCH (10:48)
[2022-01-09] MEDS: Miralax Powder 17GM PACKET PO SCH (10:49)
[2022-01-09] MEDS ORDERED: HYDROCODONE-ACETAMIN 10-325 MG PO PRN (11:01)
[2022-01-09 12:22] VITALS: BP 138/66; PULSE 63; O2SAT 98
--- NOTE | 2022-01-09 12:33 | PCM.DS ---
Discharge Summary Date of Admission: 01/07/22 18:10 Admitting Physician: MARIUSZ LINARES Primary Care Provider: MARIUSZ LINARES Allergies Allergies iodine Allergy (Severe, Verified 01/07/22 13:57) [facility] Summary - Hospital Course Hospital Course: Chief Complaint Diagnosis c/o diaphoresis, weakness for 2-3 days Allergies Allergy/AdvReac Type Severity Reaction Status Date / Time iodine Allergy Severe Hives Verified 01/07/22 13:57 Vital Signs (Last 24 hours) Temp Pulse Resp BP Pulse Ox 01/09/22 12:00 97.5 F 63 21 138/66 98 01/09/22 07:40 97.5 F 64 23 138/75 97 01/09/22 06:51 63 18 94 L 01/09/22 04:00 97.5 F 68 23 139/61 94 L 01/08/22 23:45 98.0 F 69 16 115/58 95 01/08/22 19:47 97.5 F 66 22 132/60 92 L 01/08/22 19:27 78 16 97 01/08/22 15:56 98.9 F 73 17 131/60 94 L 01/08/22 14:14 66 16 95 Home Medications Medication Instructions Recorded Confirmed Last Taken Type Albuterol Sulfate [Proair 90 mcg IH QID PRN 01/08/22 01/08/22 Unknown History Respiclick] Atorvastatin Calcium 80 mg PO HS 01/08/22 01/08/22 Unknown History Melatonin 3 mg PO HS PRN 01/08/22 01/08/22 Unknown History Non-Formulary Drug [Non-Formulary 1 each PO Q3H/PRN PRN 01/08/22 01/08/22 Unknown History Item] Non-Formulary Drug [Non-Formulary 2 inh IH QID 01/08/22 01/08/22 Unknown History Item] Polyethylene Glycol 3350 17 gm 17 gm PO DAILY 01/08/22 01/08/22 Unknown History [Miralax Powder 17GM PACKET] Acetaminophen 325 mg [Tylenol 650 mg PO Q4H PRN PRN tablet 01/09/22 Unknown Rx 325 mg] Albuterol 2.5 mg/3 ml Neb 2.5 mg IH TIDRT 01/09/22 Unknown Rx [Proventil 2.5 mg/3 ml Neb] Fluticasone Propion/Salmeterol 1 each IH BIDRT 01/09/22 Unknown Rx [Fluticasone-Salmeterol 250-50] Fluticasone/Salmeterol 2 puff IH BIDRT 01/09/22 Unknown Rx [Advair Hfa Common canister*] Oseltamivir 75 mg [Tamiflu 75MG 75 mg PO BID 3 Days #6 cap 01/09/22 Unknown Rx Capsule] Current Medications Generic Name Dose Route Start Last Admin Trade Name Freq PRN Reason Stop Dose Admin Acetaminophen 650 mg 01/08/22 09:10 01/08/22 21:06 Acetaminophen 325 Mg Tablet PO 02/07/22 09:09 650 mg Q4H PRN PRN Administration PAIN AND/OR FEVER Hydrocodone Bitart/Acetaminophen 1 tablet 01/09/22 11:01 01/09/22 11:12 Hydrocodone/Acetamin 10-325 Mg Tablet PO 01/14/22 11:00 1 tablet Q4H PRN PRN Administration PAIN Albuterol Sulfate 2.5 mg 01/07/22 19:08 Albuterol Sulfate 2.5 Mg/3 Ml Neb 02/06/22 19:07 Q4H PRN PRN SHORTNESS OF BREATH/WHEEZING Albuterol Sulfate 2.5 mg 01/08/22 07:00 01/09/22 06:37 Albuterol Sulfate 2.5 Mg/3 Ml Neb 02/07/22 06:59 2.5 mg TIDRT MICKY Administration Calcium Carbonate 1 tab 01/08/22 10:00 01/09/22 10:47 Calcium Carbonate 500 Mg/Vitamin D 1 Tab Tablet PO 02/07/22 09:59 1 tab BID MICKY Administration Carvedilol 25 mg 01/08/22 10:00 01/09/22 10:47 Carvedilol 12.5 Mg Tablet PO 02/07/22 09:59 25 mg BID MICKY Administration Enoxaparin Sodium 40 mg 01/08/22 10:00 01/09/22 10:48 Enoxaparin Sodium 40 Mg/0.4 Ml Syringe SQ 02/07/22 09:59 40 mg DAILY MICKY Administration Furosemide 20 mg 01/08/22 10:00 01/09/22 10:47 Furosemide 20 Mg Tablet PO 02/07/22 09:59 20 mg DAILY MICKY Administration Guaifenesin 1,200 mg 01/08/22 10:00 01/09/22 10:46 Guaifenesin 600 Mg Tablet Er PO 02/07/22 09:59 1,200 mg BID MICKY Administration Sodium Chloride 1,000 mls @ 50 mls/hr 01/07/22 18:20 01/09/22 04:45 Sodium Chloride 0.9% 1000 Ml IV 02/06/22 18:19 50 mls/hr .Q20H MICKY Administration Azithromycin 500 mg in 250 mls @ 250 mls/hr 01/08/22 22:00 01/08/22 22:37 Zithromax 500 Mg/ 250 Ml Nacl Premix IV 02/07/22 21:59 250 mls/hr Q24H MICKY Administration Ceftriaxone Sodium/Dextrose 1 g in 50 mls @ 100 mls/hr 01/08/22 22:00 01/08/22 22:56 Rocephin 1 Gm-D5w 50 Ml Bag IV 01/11/22 21:59 Not Given Q24H MICKY Lidocaine HCl 5 ml 01/08/22 11:02 Lidocaine Hcl 20 Ml Cup PO 02/07/22 11:01 Q3H PRN PRN SORE THROAT/MOUTH PAIN Losartan Potassium 25 mg 01/08/22 10:00 01/09/22 10:47 Losartan Potassium 50 Mg Tablet PO 02/07/22 09:59 25 mg BID MICKY Administration Melatonin 3 mg 01/08/22 10:34 Melatonin 3 Mg Tablet PO 02/07/22 10:33 HS PRN PRN INSOMNIA Multivitamins Therapeutic 1 tab 01/09/22 10:00 01/09/22 10:47 Multivitamins,Therapeutic 1 Tab Tab PO 02/08/22 09:59 1 tab DAILY MICKY Administration Oseltamivir Phosphate 75 mg 01/07/22 22:00 01/09/22 10:48 Oseltamivir 75 Mg Cap PO 01/12/22 21:59 75 mg BID MICKY Administration Pantoprazole Sodium 40 mg 01/08/22 10:00 01/09/22 10:47 Protonix (Pantoprazole) 40 Mg Tablet PO 02/07/22 09:59 40 mg QAM MICKY Administration Polyethylene Glycol 17 gm 01/08/22 10:00 01/09/22 10:49 Polyethylene Glycol 3350 17 Gm Packet PO 02/07/22 09:59 17 gm DAILY MICKY Administration Potassium Chloride 20 meq 01/08/22 10:00 01/09/22 10:48 Potassium Chloride 10 Meq Tablet PO 02/07/22 09:59 20 meq DAILY MICKY Administration Fluticasone/Salmeterol 2 puff 01/08/22 19:00 01/09/22 07:22 Fluticasone/Salmeterol 115/21 - 120 Puff Common Canister IH 02/07/22 18:59 Not Given BIDRT MICKY Simvastatin 40 mg 01/08/22 22:00 01/08/22 22:28 Simvastatin 20 Mg Tablet PO 02/07/22 21:59 40 mg HS MICKY Administration Sucralfate 1,000 mg 01/08/22 11:30 01/09/22 10:46 Sucralfate 1000 Mg/10 Ml Suspension PO 02/07/22 11:29 1,000 mg ACHS MICKY Administration Discontinued Medications Generic Name Dose Route Start Last Admin Trade Name Freq PRN Reason Stop Dose Admin Enoxaparin Sodium Confirm 01/07/22 18:14 Enoxaparin Sodium 40 Mg/0.4 Ml Syringe Administered 01/07/22 18:15 Dose 40 mg SQ .STK-MED ONE Sodium Chloride 1,000 mls @ 999 mls/hr 01/07/22 14:10 01/07/22 16:25 Sodium Chloride 0.9% 1000 Ml IV 01/07/22 15:10 Infused .Q1H1M STA Infusion Sodium Chloride Confirm 01/07/22 15:03 Sodium Chloride 0.9% 1000 Ml Administered 01/07/22 15:04 Dose 1,000 mls @ ud .ROUTE .STK-MED ONE Azithromycin Confirm 01/07/22 18:14 Zithromax 500 Mg/ 250 Ml Nacl Premix Administered 01/07/22 18:15 Dose 500 mg in 250 mls @ ud IV .STK-MED ONE Sodium Chloride Confirm 01/07/22 18:14 Sodium Chloride 0.9% 1000 Ml Administered 01/07/22 18:15 Dose 1,000 mls @ ud .ROUTE .STK-MED ONE Ceftriaxone Sodium/Dextrose Confirm 01/07/22 18:15 Rocephin 1 Gm-D5w 50 Ml Bag Administered 01/07/22 18:16 Dose 1 g in 50 mls @ ud IV .STK-MED ONE Ceftriaxone Sodium/Dextrose 1 g in 50 mls @ 100 mls/hr 01/08/22 10:00 Rocephin 1 Gm-D5w 50 Ml Bag IV 01/11/22 09:59 Q24H10 MICKY Azithromycin 500 mg in 250 mls @ 250 mls/hr 01/08/22 10:00 Zithromax 500 Mg/ 250 Ml Nacl Premix IV 02/07/22 09:59 Q24H10 MICKY Azithromycin 500 mg in 250 mls @ 250 mls/hr 01/07/22 18:21 01/07/22 18:24 Zithromax 500 Mg/ 250 Ml Nacl Premix IV 02/06/22 18:20 250 mls/hr Q24H10 MICKY Administration Ceftriaxone Sodium/Dextrose 1 g in 50 mls @ 100 mls/hr 01/07/22 18:21 01/07/22 18:22 Rocephin 1 Gm-D5w 50 Ml Bag IV 01/10/22 18:20 100 mls/hr Q24H10 MICKY Administration Oseltamivir Phosphate Confirm 01/07/22 18:14 Oseltamivir 75 Mg Cap Administered 01/07/22 18:15 Dose 75 mg PO .STK-MED ONE Intake & Output (Last 24 hours) 01/07/22 01/08/22 01/09/22 01/10/22 11:59 11:59 11:59 11:59 Intake Total 1393 3538 Balance 1393 3538 Weight 63.9 kg 62.2 kg Microbiology Results (Last 24 hours) 01/07/22 15:10 Catherized Urine Culture - Final NO GROWTH Orders (Last 24 hours) Category Date Time Status Discharge Routine Discharge 01/09/22 11:57 Ordered Azithromycin 500 mg/250 ml [Zithromax 500 MG/ 250 ML Med 01/08/22 22:00 Active NaCl Premix] 500 mg in 250 ml IV Q24H Ceftriaxone 1 GM/50 ML PREMIX* [ROCEPHIN 1 Gm-D5w 50 ml Med 01/08/22 22:00 Active Bag] 1 g in 50 ml IV Q24H Fluticasone Propion/Salmeterol [Fluticasone-Salmeterol Med 01/09/22 07:12 Discontinued 250-50] 1 each IH .STK-MED ONE Fluticasone Propion/Salmeterol [Fluticasone-Salmeterol Med 01/09/22 07:00 Active 250-50] 1 each IH BIDRT Fluticasone/Salmeterol 115/21 [Advair Hfa 115/21 Common Med 01/08/22 19:00 Active canister*] 2 puff IH BIDRT Hydrocodone/Acetaminophen [Hydrocodone-Acetamin 10-325 Med 01/09/22 11:01 Active mg] 1 tablet PO Q4H PRN PRN Multivitamins,Therapeutic Tab* [Theragran Multivitamin* Med 01/09/22 10:00 Active ] 1 tab PO DAILY Simvastatin 20Mg [Zocor 20Mg] Med 01/08/22 22:00 Active 40 mg PO HS Incentive Spirometry UD RT 01/08/22 14:26 Active Respiratory MDI Q12H RT 01/09/22 07:00 Active Patient Care Notes (Last 24 hours) 01/09/22 10:35 Case Management Note by Jennifer Laguerre PATIENT HAS HHC SOLUTIONS. THEY WERE NOTIFIED PATIENT IS HERE. THEY WILL NEED N OTIFIED AT TIME OF DC AT [phone]. THEY WILL NEED FAXED THE DC INSTRUCTIONS, DC MED LIST, DC SUMMARY ( IF AVAILABLE) TO [phone]. WILL SEND NEW ORDER TO RE-ORDER THERAPY AT HOME SINCE THEY HAVE RECENTLY STOPPED THAT PORTION OF HHC Initialized on 01/09/22 10:35 - END OF NOTE 01/09/22 10:19 Nursing Note by Nicole Baird PT AMBULATED 150 FEET IN HALLWAY WITH THIS NURSE AND ROLLATOR. PT TOLERATED WITHOUT COMPLAINT AND STATES SHE WOULD LIKE TO WALK AGAIN AFTER LUNCH. Initialized on 01/09/22 10:19 - END OF NOTE - Vitals & Intake/Output Vital Signs: Vital Signs Temperature 97.5 F 01/09/22 12:00 Pulse Rate 63 01/09/22 12:00 Respiratory Rate 21 01/09/22 12:00 Blood Pressure 138/66 01/09/22 12:00 O2 Sat by Pulse Oximetry 98 01/09/22 12:00 Intake & Output: Intake & Output 03/1901/08/22 01/09/22 01/10/22 11:59 11:59 11:59 11:59 Intake Total 1393 3538 Balance 1393 3538 Weight 63.9 kg 62.2 kg - Lab Result Diagrams: 01/08/22 04:00 01/08/22 04:00 Micro Results-Entire Visit: Microbiology 01/07/22 15:10 Urine Culture - Final Catherized NO GROWTH - Radiology Exams Ordered Rad Exams-Entire Visit: Radiology Procedures Category Date Time Status CHEST 1 VIEW (PORTABLE) Stat Exams 01/07/22 14:11 Completed CHEST WITHOUT CONTRAST [CT] Stat Exams 01/07/22 16:06 Completed - Procedures and Test Procedures and Tests throughout Hospitalization: Therapy Orders & Screens 01/07/22 18:20 Oxygen Nasal Cannula 3 lpm Comment: Respiratory Therapy Consult ROUTINE Comment: Reason For Exam: 01/07/22 18:54 Respiratory Therapy Assessment DAILY Comment: Diagnosis: Pneumonia, Flu A+ 01/08/22 14:26 Incentive Spirometry UD Comment: Diagnosis: c/o diaphoresis, weakness for 2-3 days 01/09/22 07:00 Respiratory MDI Q12H Comment: Advair 2 puffs BID Diagnosis: c/o diaphoresis, weakness for 2-3 days Discharge Exam General Appearance: no apparent distress, alert Neurologic Exam: alert, oriented x 3, cooperative, normal mood/affect, nml cerebellar function, sensation nml, No motor deficits Eye Exam: PERRL, EOMI, eyes nml inspection Ears, Nose, Throat Exam: normal ENT inspection, pharynx normal, moist mucous membranes Neck Exam: normal inspection, non-tender, supple, full range of motion Respiratory Exam: normal breath sounds, lungs clear, No respiratory distress Cardiovascular Exam: regular rate/rhythm, normal heart sounds Gastrointestinal/Abdomen Exam: soft, No tenderness, No mass Pelvic Exam: deferred Rectal Exam: deferred Back Exam: normal inspection, normal range of motion, No CVA tenderness, No vertebral tenderness Extremity Exam: normal inspection, normal range of motion Skin Exam: normal color, warm, dry Final Diagnosis/Problem List - Final Discharge Diagnosis/Problem (1) Influenzal pneumonia Current Visit: Yes Status: Resolved Code(s): J11.00 - FLU DUE TO UNIDENTIFIED FLU VIRUS W UNSP TYPE OF PNEUMONIA (2) Right lower lobe pneumonia Current Visit: Yes Status: Resolved Code(s): J18.9 - PNEUMONIA, UNSPECIFIED ORGANISM - Discharge Discharge Date: 01/09/22 Disposition: Home, Self-Care Condition: Stable Prescriptions: New Acetaminophen 325 mg [Tylenol 325 mg] 650 mg PO Q4H PRN PRN tablet PRN Reason: Pain And/Or Fever Fluticasone/Salmeterol 115/21 [Advair Hfa 115/21 Common canister*] 2 puff IH BIDRT Fluticasone Propion/Salmeterol [Fluticasone-Salmeterol 250-50] 1 each IH BIDRT Albuterol 2.5 mg/3 ml Neb [Proventil 2.5 mg/3 ml Neb] 2.5 mg IH TIDRT Oseltamivir 75 mg [Tamiflu 75MG Capsule] 75 mg PO BID 3 Days #6 cap Continue Potassium Chloride [Klor-Con] 20 meq PO DAILY Losartan Potassium [Cozaar] 25 mg PO BID Furosemide [Lasix] 20 mg PO DAILY Carvedilol [Coreg] 25 mg PO BID Multivitamin [Multiple Vitamins] 1 each PO DAILY Non-Formulary Drug [Non-Formulary Bulk Item] 1 inh IH BID Thai/D3/Mag11/Zinc/Manager Test/Chuy/Bor [Caltrate 600+D Plus Tablet] 1 tablet PO BID Albuterol/Ipratropium 3ml Neb* [DUONEB 0.5-3 MG/3 ml Neb] 3 ml IH QID #120 each Guaifenesin 600 mg ER [Mucinex 600MG ER Tabs] 1,200 mg PO BID tablet Sucralfate 1000 mg/10 ml [Carafate SUSPENSION 1000 MG/10 ML] 1,000 mg PO ACHS ml PANTOPRAZOLE 40 mg Tablet [Protonix 40MG Tablet] 40 mg PO QAM #30 tab Non-Formulary Drug [Non-Formulary Item] 2 inh IH QID Non-Formulary Drug [Non-Formulary Item] 1 each PO Q3H/PRN PRN PRN Reason: Shortness Of Breath/Wheezing Atorvastatin Calcium 80 mg PO HS Albuterol Sulfate [Proair Respiclick] 90 mcg IH QID PRN PRN Reason: Shortness Of Breath/Wheezing Polyethylene Glycol 3350 17 gm [Miralax Powder 17GM PACKET] 17 gm PO DAILY Melatonin 3 mg PO HS PRN PRN Reason: Insomnia Instructions: Flu, Adult (DC), Pneumonia, Adult (DC) Follow up with: MARIUSZ LINARES MD [Primary Care Provider] - 01/16/22 10:30 am (will be seen in the [place] office) Forms: Discharge Instructions
== END 2022-01-09 13:55 | disposition home health service (06) ==
LOC: ED 13:49 → MED SURG 18:10
PROVIDERS: ADMIT General Practice; ATTEND General Practice
DX: J11.00 Influenza due to unidentified influenza virus with unspecified type of pneumonia (principal); J18.9 Pneumonia, unspecified organism; I10 Essential (primary) hypertension; I25.10 Atherosclerotic heart disease of native coronary artery without angina pectoris; E78.00 Pure hypercholesterolemia, unspecified; Z79.899 Other long term (current) drug therapy; Z20.828 Contact with and (suspected) exposure to other viral communicable diseases
CPT/HCPCS: 0241U; 36000; 36415; 71045; 71250; 80053; 81015; 82947; 83735; 83880; 84484; 85025; 85027; 85379; 87086; 93005; 93041; 93268; 94640; 94762; 96360; 99285; 99291; G0378; J0456; J0696; J1650; J7609; A9270-GY

== ENCOUNTER 2022-05-24 10:47 | Observation (INO) | payer MEDICARE, BC ==
[2022-05-24 12:25] LABS: INFLUENZA A NEGATIVE (NEGATIVE); INFLUENZA B NEGATIVE (NEGATIVE); RESPIRATORY SYNCTIAL VIRUS NEGATIVE (Negative); SARS-CoV-2 Xpert Express NEGATIVE (NEGATIVE)
[2022-05-24] MEDS ORDERED: TYLENOL 325 MG PO PRN ×2 (12:48→15:10)
[2022-05-24] MEDS ORDERED: Docusate Sodium 100 MG PO PRN (12:48)
[2022-05-24 12:58] LABS: Absolute Neutrophil Ct (ANC) 6.62 x10^3/uL (1.4-6.9); Eosinophil % 1.1 % (0.00-5.0); Eosinophil (Absolute #) 0.11 x10^3/uL (0-0.5); Hematocrit 34.1 % (35-47); Hemoglobin 11.2 g/dL (12.0-16.0); Lymphocyte (Absolute #) 2.18 x10^3/uL (1.0-4.6); Lymphocytes % 22.3 % (24.0-44.0); Mean Cell Volume 99.7 fL (78-100); Mean Corpuscular Hemoglobin 32.7 pg (26-32); Mean Corpuscular Hgb Concent. 32.8 g/dL (32-36); Mean Platelet Volume 8.8 fL (7.5-11.0); Monocyte (Absolute #) 0.74 x10^3/uL (0.0-1.3); Monocytes % 7.6 % (0.0-12.0); Neutrophil % 67.6 % (36.0-66.0); Platelet Count 320 x10^3/uL (150-450); Red Blood Count 3.42 x10^6/uL (4.1-5.4); Red Cell Distribution Width 13.1 % (11.5-14.0); White Blood Count 9.8 x10^3/uL (4.0-10.5)
[2022-05-24 13:12] LABS: ALBUMIN 4.2 g/dL (3.5-5.0); ALKALINE PHOSPHATASE 72 U/L (38-126); ANION GAP 14.5 MEQ/L (5-15); BLOOD UREA NITROGEN 11 mg/dL (7-17); CHLORIDE 99 mmol/L (98-107); Calcium 9.8 mg/dL (8.4-10.2); Carbon Dioxide 25 mmol/L (22-30); Creatinine 1 0.79 mg/dL (0.52-1.04); EST GLOMERULAR FILTRATION RATE > 60.0 ML/MIN; Glucose 102 mg/dL (74-106); NT PRO BNP 637 pg/mL (0-1800); Potassium 4.3 mmol/L (3.5-5.1); SGOT/AST 27 U/L (14-36); SGPT/ALT 14 U/L (0-35); SODIUM 134 mmol/L (137-145); Total Protein 6.9 g/dL (6.3-8.2)
--- NOTE | 2022-05-24 13:40 | XRAY ---
Indication: Cough and short of breath. Pneumonia. Comparison: January 16, 2022. PA/lateral chest demonstrates new diffuse right lung hazy interstitial alveolar opacities, greatest in mid to lower lung valdez without effusion. Remaining heart and left lung unremarkable again with COPD and CABG surgery. Bony thorax intact again with mild osteopenia and degenerative changes.
[2022-05-24] MEDS: DUONEB 0.5-3 MG/3 ml Neb IH SCH ×2 (14:03→19:22)
[2022-05-24] MEDS ORDERED: LASIX 20 MG PO PRN (15:10)
[2022-05-24] MEDS ORDERED: Miralax Powder 17GM PACKET PO PRN (15:10)
[2022-05-24] MEDS ORDERED: DUONEB 0.5-3 MG/3 ml Neb IH PRN ×2 (15:10→15:19)
[2022-05-24] MEDS ORDERED: NON-FORMULARY ITEM (Albuterol Sulfate [Proair Respiclick] 90 MCG Aer.Pow.Ba) IH PRN (15:10)
[2022-05-24] MEDS ORDERED: VENTOLIN COMMON CANISTER IH PRN (15:19)
[2022-05-24] MEDS: Sodium Chloride 0.9% 1000 ML 1,000 ML IV SCH (16:02)
[2022-05-24] MEDS: ROCEPHIN 1 Gm-D5w 50 ml Bag** 1 G/50 ML IVPB IV SCH (16:05)
[2022-05-24] MEDS: ENOXAPARIN SODIUM SQ SCH (16:10)
[2022-05-24] MEDS: Zithromax 500 MG/ 250 ML NaCl Premix 500 MG/250 ML IVPB IV SCH (16:10)
[2022-05-24] MEDS ORDERED: Advair Hfa 115/21 Common canister IH SCH (19:00)
[2022-05-24] MEDS: Advair Hfa 115/21 Common canister IH SCH (19:31)
[2022-05-24] MEDS: COREG 12.5 MG PO SCH (21:35)
[2022-05-24] MEDS: Mucinex 600MG ER Tabs PO SCH (21:35)
[2022-05-24] MEDS: Cozaar 50 MG PO SCH (21:37)
[2022-05-24] MEDS: ZOCOR 20MG PO SCH (21:38)
[2022-05-24] MEDS: MELATONIN PO PRN (21:46)
[2022-05-24] MEDS ORDERED: NON-FORMULARY ITEM (Atorvastatin Calcium [Atorvastatin Calcium] 80 MG Tablet) PO SCH (22:00)
[2022-05-24] MEDS ORDERED: NON-FORMULARY ITEM (Carvedilol [Coreg] 25 MG Tablet) PO SCH (22:00)
[2022-05-24] MEDS ORDERED: NON-FORMULARY ITEM (Losartan Potassium [Cozaar] 25 MG Tablet) PO SCH (22:00)
[2022-05-25] MEDS: DUONEB 0.5-3 MG/3 ml Neb IH SCH ×4 (01:24→19:33)
[2022-05-25] MEDS: Advair Hfa 115/21 Common canister IH SCH ×2 (08:35→19:35)
[2022-05-25] MEDS: ROCEPHIN 1 Gm-D5w 50 ml Bag** 1 G/50 ML IVPB IV SCH (09:29)
[2022-05-25] MEDS: Mucinex 600MG ER Tabs PO SCH ×2 (09:29→21:53)
[2022-05-25] MEDS: Cozaar 50 MG PO SCH ×2 (09:30→21:51)
[2022-05-25] MEDS: ENOXAPARIN SODIUM SQ SCH (09:30)
[2022-05-25] MEDS: Klor Con PO SCH (09:30)
[2022-05-25] MEDS: THERAGRAN MULTIVITAMIN PO SCH (09:30)
[2022-05-25] MEDS: COREG 12.5 MG PO SCH ×2 (09:30→21:51)
[2022-05-25] MEDS: Protonix 40MG Tablet PO SCH (09:30)
[2022-05-25] MEDS: Zithromax 500 MG/ 250 ML NaCl Premix 500 MG/250 ML IVPB IV SCH (09:31)
[2022-05-25] MEDS ORDERED: NON-FORMULARY ITEM (Potassium Chloride [Klor-Con] 20 MEQ Packet) PO SCH (10:00)
[2022-05-25] MEDS ORDERED: Protonix 40MG Tablet PO SCH (10:00)
[2022-05-25] MEDS ORDERED: NON-FORMULARY ITEM (Multivitamin [Multiple Vitamins] 1 EACH Tablet) PO SCH (10:00)
--- NOTE | 2022-05-25 10:48 | XRAY ---
Exam: CT of the chest without IV contrast from 05/25/2022. CTDI: 3.66 mGy Comparison: Two-view chest films series from 05/24/2022. Indication: 77-year-old female with productive cough with shortness of breath for 2 weeks, worse over last 3 days; history of COPD/emphysema; history of open heart surgery in 2018. Technique: Non-IV contrast axial images were obtained through the chest. Reconstructed coronal and sagittal images were created and reviewed. Findings: Multilobar soft tissue consolidations/infiltrates are seen, most prominent within the right lower lobe, and to a lesser extent within the posterior right upper lobe and the left lower lobe. The findings are consistent with bilateral pneumonia. I see no pneumothorax or pleural effusion. There is some mild scattered pleural-parenchymal scarring, most prominent within the upper lung valdez. Pulmonary vascularity within the upper lung valdez appears relatively prominent. There is a granuloma with a central calcified nidus within the posterior right lung base on axial image #48, and series 3. Several other scattered calcified granulomas are seen within the left lung field. In addition, it is difficult to completely exclude the possibility of 3 small soft tissue nodules within the left lung field, 1 on axial image #28, another within the central left lower lung field on axial image #30, and the third one within the left lower lobe on axial image #31. The heart size is normal. Surgical clips and sternal wires are seen with prior CABG. Moderate vascular calcification is seen within the [place] coronary arteries. There is a prominent lymph node just anterior to the ok measuring 1.2 cm in short axis on axial image #23. Some other much smaller lymph nodes are seen within the mediastinum. I believe all these lymph nodes are probably reactive. Vascular calcification is seen within a normal caliber thoracic aorta. The adrenal glands appear unremarkable within the upper abdomen. Surgical clips consistent with prior CABG are noted. There are several apparent pill densities within the posterior aspect of the stomach lumen. Moderate vascular calcification is seen within the upper abdominal aorta and splenic artery. There is some breathing artifact on several images within the lower chest which results in misregistration artifact. Otherwise, I see no definite fracture or aggressive bone lesion. Mild thoracic spondylosis and osteopenia are seen. Impression: 1. Bilateral consolidations/air space infiltrates are seen. This is noted to the greatest extent within the right lower lobe, although infiltrates are also seen within the posterior aspect of the right upper lobe and within the left lower lobe. The findings are consistent with bilateral pneumonia. 2. Some centrilobular emphysematous changes are noted in addition to hyperinflation. 3. Old healed granulomatous disease. In addition, several small soft tissue nodules within the within the anterior aspect of the left upper lobe and the central aspect of the left lower lung field cannot be excluded. 4. Nonspecific mediastinal lymphadenopathy which is likely reactive. 5. Mild motion artifact is seen on several axial images through the lower chest resulting in some misregistration artifact. 6. Status post CABG with midline sternotomy.
[2022-05-25] MEDS ORDERED: Hydromorphone 1 mg/ml Injection IV ONE (13:12)
--- NOTE | 2022-05-25 15:20 | XRAY ---
Exam: CT of the right shoulder without IV contrast from 05/25/2022. CTDI: 3.66 mGy Comparison: Two-view chest series from 05/24/2022. Indication: 77-year-old female complains of right shoulder pain. Technique: Thin section axial images were obtained through the right shoulder without IV contrast. Reconstructed coronal and sagittal images were created and reviewed. Findings: I see no acute fracture or dislocation. There is marked narrowing of the glenohumeral joint space. Hypertrophic spurring is seen about the margins of the right humeral head as well as some small subchondral cysts anteriorly and superiorly I see no bone destruction. The right acromioclavicular joint space is not narrowed. I do see some minimal spurring on both sides of this joint, however. The right clavicle appears intact. I again see prominent air space infiltrate within the right lower lobe, and to a lesser extent, the posterior aspect of the right upper lobe. These findings are consistent with pneumonia. A small calcified granuloma is seen within the right lung apex as well as emphysematous changes. There is moderate to marked degenerative disc disease at both C5-C6 and C6-C7. Impression: 1. I see no right shoulder fracture, dislocation, or bone destruction. 2. 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 Only mild degenerative changes are seen affecting the right acromioclavicular joint. 3. I again note air space infiltrates within the right upper lobe and right lower lobe consistent with pneumonia.
[2022-05-25] MEDS: Hydromorphone 1 mg/ml Injection IV PRN ×2 (17:11→22:08)
[2022-05-25] MEDS: Sodium Chloride 0.9% 1000 ML 1,000 ML IV SCH (19:16)
--- NOTE | 2022-05-25 20:58 | PCM.HP ---
History of Present Illness - Chief Complaint Chief Complaint: c/o cough, shortness of breath for 3-5 days History of Present Illness: is a 77 year old female came to office with c/o cough, shortness of breath, for 3-5 days. Patient had pneumonia 2 months ago. and feeling same way t shania. - Review of Systems Constitutional: Weakness, No Fever, No Chills Eyes: No Symptoms Ears, Nose, & Throat: No Symptoms Respiratory: Cough, Orthopnea, Short Of Breath, Wheezing Cardiac: No Chest Pain, No Edema, No Syncope Abdominal/Gastrointestinal: No Abdominal Pain, No Nausea, No Vomiting, No Diarrhea Genitourinary Symptoms: No Dysuria Musculoskeletal: No Back Pain, No Neck Pain Skin: No Rash Neurological: No Dizziness, No Focal Weakness, No Sensory Changes Psychological: No Symptoms Endocrine: No Symptoms Hematologic/Lymphatic: No Symptoms Immunological/Allergic: No Symptoms Medications & Allergies Home Medications: Home Medication List Carvedilol [Coreg] 25 mg PO BID 08/06/20 [History Confirmed 05/24/22] Furosemide [Lasix] 20 mg PO DAILY PRN PRN 08/06/20 [History Confirmed 05/24/22] Losartan Potassium [Cozaar] 25 mg PO BID 08/06/20 [History Confirmed 05/24/22] Potassium Chloride [Klor-Con] 20 meq PO DAILY 08/06/20 [History Confirmed 05/24/22] Multivitamin [Multiple Vitamins] 1 each PO DAILY 05/23/21 [History Confirmed 05/24/22] Guaifenesin 600 mg ER [Mucinex 600MG ER Tabs] 1,200 mg PO BID tablet 10/27/21 [Rx Confirmed 05/24/22] PANTOPRAZOLE 40 mg Tablet [Protonix 40MG Tablet] 40 mg PO QAM #30 tab 11/10/21 [Rx Confirmed 05/24/22] Albuterol Sulfate [Proair Respiclick] 2 puff IH QID PRN 01/08/22 [History Confirmed 05/24/22] Atorvastatin Calcium 80 mg PO HS 01/08/22 [History Confirmed 05/24/22] Melatonin 3 mg PO HS PRN 01/08/22 [History Confirmed 05/24/22] Polyethylene Glycol 3350 17 gm [Miralax Powder 17GM PACKET] 17 gm PO DAILY PRN PRN 01/08/22 [History Confirmed 05/24/22] Acetaminophen 325 mg [Tylenol 325 mg] 650 mg PO Q4H PRN PRN tablet 01/09/22 [Rx Confirmed 05/24/22] Albuterol/Ipratropium 3ml Neb* [DUONEB 0.5-3 MG/3 ml Neb] 1 neb IH Q4HPRN PRN 05/24/22 [History Confirmed 05/24/22] Amlodipine Besylate [Norvasc] 0 mg PO BID 05/24/22 [History Confirmed 05/24/22] Fluticasone/Salmeterol 115/21 [Advair Hfa 115/ Common canister*] 1 puff IH BIDRT 05/24/22 [History Confirmed 05/24/22] Allergies/Adverse Reactions: Allergies Allergy/AdvReac Type Severity Reaction Status Date / Time iodine Allergy Severe Hives Verified 05/24/22 11:57 - Past Medical History Past Medical History: Yes Neurological History: No Pertinent History ENT History: Cataracts Cardiac History: Coronary Artery Disease, High Cholesterol, Hypertension Respiratory History: COPD, Emphysema, Pneumonia Endocrine Medical History: No Pertinent History Musculoskelatal History: Arthritis, Osteoarthritis GI Medical History: GERD, Polyps History: No Pertinent History Pyscho-Social History: No Pertinent History Reproductive Disorders: No Pertinent History Comment: bleeding ulcer - Past Surgical History Past Surgical History: Yes Neuro Surgical History: No Pertinent History Cardiac History: CABG Respiratory Surgery: No Pertinent History GI Surgical History: Appendectomy, Cholecystectomy Genitourinary Surgical Hx: No Pertinent History Musculskeletal Surgical Hx: Orthopedic Surgery Female Surgical History: Hysterectomy, Tubal Ligation Other Surgical History: 2 screws in lower back,carpal tunnel release to right wrist. ankle sx. bleeding ulcer repair - Social History Smoking Status: Former smoker Exposure to second hand smoke: No Alcohol: None Drug Use: none - Physical Exam Vital Signs: Vital Signs - 24 hr Temp Pulse Resp BP Pulse Ox 05/25/22 20:00 97.1 F 76 19 111/61 93 L 05/25/22 16:00 99.1 F 56 L 19 122/58 95 05/25/22 13:17 57 L 16 97 05/25/22 12:00 98.4 F 57 L 19 107/54 97 05/25/22 08:00 97.8 F 66 17 109/59 96 05/25/22 07:07 61 22 97 05/25/22 04:00 97.1 F 67 22 92/53 98 05/25/22 01:25 70 20 93 L 05/24/22 23:36 97.4 F 61 17 97/54 93 L General Appearance: no apparent distress, alert Neurologic Exam: alert, oriented x 3, cooperative, normal mood/affect, nml cerebellar function, nml station & gait, sensation nml, No motor deficits Eye Exam: PERRL/EOMI, eyes nml inspection Ears, Nose, Throat Exam: normal ENT inspection, TMs normal, pharynx normal, moist mucous membranes Neck Exam: normal inspection, non-tender, supple, full range of motion Respiratory Exam: diminished breath sounds, crackles/rales, rhonchi, No respiratory distress Cardiovascular Exam: regular rate/rhythm, normal heart sounds, normal peripheral pulses Gastrointestinal/Abdomen Exam: soft, normal bowel sounds, No tenderness, No mass Back Exam: normal inspection, normal range of motion, No CVA tenderness, No vertebral tenderness Extremity Exam: normal inspection, normal range of motion, pelvis stable Skin Exam: normal color, warm, dry, No rash Lymphatic Exam: No adenopathy Results - Radiology Impressions Radiology Exams & Impressions: Radiology Procedures Category Date Time Status CHEST 2 VIEWS (PA AND LAT) Stat Exams 05/24/22 13:32 Completed CHEST WITHOUT CONTRAST [CT] Urgent Exams 05/25/22 09:23 Completed UPPER EXTREMITY W/O CONTRAST [CT] Routine Exams 05/25/22 13:56 Completed Assessment/Plan (1) Right lower lobe pneumonia Current Visit: No Status: Acute Qualifiers: Pneumonia type: due to Pneumococcus Qualified Code(s): J13 - Pneumonia due to Streptococcus pneumoniae Assessment & Plan: Chief Complaint Diagnosis copd exac Allergies Allergy/AdvReac Type Severity Reaction Status Date / Time iodine Allergy Severe Hives Verified 05/24/22 11:57 Vital Signs (Last 24 hours) Temp Pulse Resp BP Pulse Ox 05/25/22 20:00 97.1 F 76 19 111/61 93 L 05/25/22 16:00 99.1 F 56 L 19 122/58 95 05/25/22 13:17 57 L 16 97 05/25/22 12:00 98.4 F 57 L 19 107/54 97 05/25/22 08:00 97.8 F 66 17 109/59 96 05/25/22 07:07 61 22 97 05/25/22 04:00 97.1 F 67 22 92/53 98 05/25/22 01:25 70 20 93 L 05/24/22 23:36 97.4 F 61 17 97/54 93 L Home Medications Medication Instructions Recorded Confirmed Last Taken Type Albuterol/Ipratropium 3ml Neb* 1 neb IH Q4HPRN PRN 05/24/22 05/24/22 Unknown History [DUONEB 0.5-3 MG/3 ml Neb] Amlodipine Besylate [Norvasc] 0 mg PO BID 05/24/22 05/24/22 Unknown History Fluticasone/Salmeterol 1 puff IH BIDRT 05/24/22 05/24/22 Unknown History [Advair Hfa Common canister*] Current Medications Generic Name Dose Route Start Last Admin Trade Name Freq PRN Reason Stop Dose Admin Acetaminophen 650 mg 05/24/22 15:10 Acetaminophen 325 Mg Tablet PO 06/23/22 15:09 Q4H PRN PRN PAIN AND/OR FEVER Albuterol Sulfate 2 puff 05/24/22 15:19 Albuterol Common Canister Inhaler 06/23/22 15:18 QIDPRN PRN SHORTNESS OF BREATH/WHEEZING Albuterol/Ipratropium 3 ml 05/24/22 13:00 05/25/22 19:33 Ipratropium/Albuterol Sulfate 3 Ml Ampul.[facility] 06/23/22 12:59 3 ml Q6HRT MICKY Administration Albuterol/Ipratropium 3 ml 05/24/22 15:19 Ipratropium/Albuterol Sulfate 3 Ml Ampul.[facility] 06/23/22 15:18 Q4HPRN PRN SHORTNESS OF BREATH/WHEEZING Carvedilol 25 mg 05/24/22 22:00 05/25/22 09:30 Carvedilol 12.5 Mg Tablet PO 06/23/22 21:59 25 mg BID MICKY Administration Docusate Sodium 100 mg 05/24/22 12:48 Docusate Sodium 100 Mg Capsule PO 06/23/22 12:47 BIDPRN PRN CONSTIPATION Enoxaparin Sodium 40 mg 05/24/22 16:00 05/25/22 09:30 Enoxaparin Sodium 40 Mg/0.4 Ml Syringe SQ 06/23/22 15:59 40 mg DAILY MICKY Administration Furosemide 20 mg 05/24/22 15:10 Furosemide 20 Mg Tablet PO 06/23/22 15:09 DAILY PRN PRN EDEMA Guaifenesin 1,200 mg 05/24/22 22:00 05/25/22 09:29 Guaifenesin 600 Mg Tablet Er PO 06/23/22 21:59 1,200 mg BID MICKY Administration Hydromorphone HCl 0.5 mg 05/25/22 13:12 05/25/22 17:11 Hydromorphone 1 Mg/1ml Inj 1 Mg/Ml Syringe IV 05/30/22 13:11 0.5 mg Q4H PRN PRN Administration PAIN Sodium Chloride 1,000 mls @ 50 mls/hr 05/24/22 13:00 05/25/22 19:16 Sodium Chloride 0.9% 1000 Ml IV 06/23/22 12:59 50 mls/hr .Q20H MICKY Administration Ceftriaxone Sodium/Dextrose 1 g in 50 mls @ 100 mls/hr 05/24/22 16:00 05/25/22 09:29 Rocephin 1 Gm-D5w 50 Ml Bag IV 05/27/22 15:59 100 mls/hr Q24H10 MICKY Administration Azithromycin 500 mg in 250 mls @ 250 mls/hr 05/24/22 16:00 05/25/22 09:31 Zithromax 500 Mg/ 250 Ml Nacl Premix IV 06/23/22 15:59 250 mls/hr Q24H10 MICKY Administration Losartan Potassium 25 mg 05/24/22 22:00 05/25/22 09:30 Losartan Potassium 50 Mg Tablet PO 06/23/22 21:59 25 mg BID MICKY Administration Melatonin 3 mg 05/24/22 15:10 05/24/22 21:46 Melatonin 3 Mg Tablet PO 06/23/22 15:09 3 mg HS PRN Administration INSOMNIA Multivitamins Therapeutic 1 tab 05/25/22 10:00 05/25/22 09:30 Multivitamins,Therapeutic 1 Tab Tab PO 06/24/22 09:59 1 tab DAILY MICKY Administration Pantoprazole Sodium 40 mg 05/25/22 10:00 05/25/22 09:30 Protonix (Pantoprazole) 40 Mg Tablet PO 06/24/22 09:59 40 mg QAM MICKY Administration Polyethylene Glycol 17 gm 05/24/22 15:10 Polyethylene Glycol 3350 17 Gm Packet PO 06/23/22 15:09 DAILY PRN PRN CONSTIPATION Potassium Chloride 20 meq 05/25/22 10:00 05/25/22 09:30 Potassium Chloride Tab 10 Meq Tab PO 06/24/22 09:59 20 meq DAILY MICKY Administration Fluticasone/Salmeterol 2 puff 05/24/22 19:00 05/25/22 19:35 Fluticasone/Salmeterol 115/21 - 120 Puff Common Canister IH 06/23/22 18:59 2 puff BIDRT MICKY Administration Simvastatin 40 mg 05/24/22 22:00 05/24/22 21:38 Simvastatin 20 Mg Tablet PO 06/23/22 21:59 40 mg HS MICKY Administration Discontinued Medications Generic Name Dose Route Start Last Admin Trade Name Freq PRN Reason Stop Dose Admin Acetaminophen 325 mg 05/24/22 12:48 Acetaminophen 325 Mg Tablet PO 06/23/22 12:47 Q4H PRN PRN PAIN, FEVER, HEADACHE Hydromorphone HCl 1 mg 05/25/22 13:12 05/25/22 13:17 Hydromorphone 1 Mg/1ml Inj 1 Mg/Ml Syringe IV 05/25/22 13:13 1 mg STAT ONE Administration Pantoprazole Sodium 40 mg 05/25/22 10:00 Protonix (Pantoprazole) 40 Mg Tablet PO 06/24/22 09:59 DAILY MICKY Fluticasone/Salmeterol 1 puff 05/24/22 19:00 Fluticasone/Salmeterol 115/21 - 120 Puff Common Canister IH 06/23/22 18:59 BIDRT MICKY Intake & Output (Last 24 hours) 05/23/22 05/24/22 05/25/22 05/26/22 11:59 11:59 11:59 11:59 Intake Total 2951 338 Balance 1676 580 Weight 55.5 kg Orders (Last 24 hours) Category Date Time Status Discharge Planning,Consult Routine Discharge 05/25/22 Active CHEST WITHOUT CONTRAST [CT] Urgent Exams 05/25/22 09:23 Completed UPPER EXTREMITY W/O CONTRAST [CT] Routine Exams 05/25/22 13:56 Completed Carvedilol 12.5 mg [Coreg 12.5 mg] Med 05/24/22 22:00 Active 25 mg PO BID Guaifenesin 600 mg ER [Mucinex 600MG ER Tabs] Med 05/24/22 22:00 Active 1,200 mg PO BID Hydromorphone 1 mg/1Ml Inj [Hydromorphone 1 mg/ml Med 05/25/22 13:12 Active Injection] 0.5 mg IV Q4H PRN PRN Hydromorphone 1 mg/1Ml Inj [Hydromorphone 1 mg/ml Med 05/25/22 13:12 D iscontinued Injection] 1 mg IV STAT ONE Losartan Potassium 50 mg [Cozaar 50 MG] Med 05/24/22 22:00 Active 25 mg PO BID Multivitamins,Therapeutic Tab* [Theragran Multivitamin* Med 05/25/22 10:00 Active ] 1 tab PO DAILY PANTOPRAZOLE 40 mg Tablet [Protonix 40MG Tablet] Med 05/25/22 10:00 Discontinued 40 mg PO DAILY PANTOPRAZOLE 40 mg Tablet [Protonix 40MG Tablet] Med 05/25/22 10:00 Active 40 mg PO QAM Potassium Chloride Tab* [Klor Con] Med 05/25/22 10:00 Active 20 meq PO DAILY Simvastatin 20Mg [Zocor 20Mg] Med 05/24/22 22:00 Active 40 mg PO HS Pulse Oximetry .continuos RT 05/25/22 19:35 Active Patient Care Notes (Last 24 hours) 05/25/22 12:39 Case Management Note by Jennifer Laguerre REFERRAL FAXED TO [facility] FOR HELP WITH MEDICAID AND TRANSPORTATION. INSURANCE NAVIGATOR'S PHONE NUMBER ALSO ADDED TO PATIENT'S DC PAPERWORK. PATIENT ALSO GIVEN LIST OF TRANSPORTATION SERVICES TO TAKE HOME Initialized on 05/25/22 12:39 - END OF NOTE Code(s): J18.9 - PNEUMONIA, UNSPECIFIED ORGANISM (2) COPD exacerbation Current Visit: Yes Status: Acute Code(s): J44.1 - CHRONIC OBSTRUCTIVE PULMONARY DISEASE W (ACUTE) EXACERBATION
[2022-05-25] MEDS: ZOCOR 20MG PO SCH (21:51)
[2022-05-25] MEDS: MELATONIN PO PRN (21:53)
[2022-05-26] MEDS: DUONEB 0.5-3 MG/3 ml Neb IH SCH ×2 (01:10→07:09)
[2022-05-26] MEDS: Hydromorphone 1 mg/ml Injection IV PRN (06:16)
[2022-05-26] MEDS: Advair Hfa 115/21 Common canister IH SCH (07:13)
--- NOTE | 2022-05-26 07:58 | PCM.NOTE ---
Date and Time: 05/26/22 0757 Subjective Assessment: doing better - Review of Systems Constitutional: No Fever, No Chills Eyes: No Symptoms Ears, Nose, & Throat: No Symptoms Respiratory: Cough, No Short Of Breath Cardiac: No Chest Pain, No Edema, No Syncope Abdominal/Gastrointestinal: No Abdominal Pain, No Nausea, No Vomiting, No Diarrhea Genitourinary Symptoms: No Dysuria Musculoskeletal: No Back Pain, No Neck Pain Skin: No Rash Neurological: No Dizziness, No Focal Weakness, No Sensory Changes Psychological: No Symptoms Endocrine: No Symptoms Hematologic/Lymphatic: No Symptoms Immunological/Allergic: No Symptoms Objective Exam General Appearance: no apparent distress, alert Neurologic Exam: alert, oriented x 3, cooperative, normal mood/affect, nml cerebellar function, sensation nml, No motor deficits Skin Exam: normal color, warm, dry Eye Exam: PERRL, EOMI, eyes nml inspection Ears, Nose, Throat Exam: normal ENT inspection, pharynx normal, moist mucous membranes Neck Exam: normal inspection, non-tender, supple, full range of motion Respiratory Exam: normal breath sounds, lungs clear, No respiratory distress Cardiovascular Exam: regular rate/rhythm, normal heart sounds Gastrointestinal/Abdomen Exam: soft, No tenderness, No mass Extremity Exam: normal inspection, normal range of motion Back Exam: normal inspection, normal range of motion, No CVA tenderness, No vertebral tenderness Pelvic Exam: deferred Rectal Exam: deferred OBJECTIVE DATA Vital Signs: Vital Signs - 24 hr Temp Pulse Resp BP Pulse Ox 05/26/22 07:15 60 18 93 L 05/26/22 04:00 97.7 F 59 L 16 121/60 95 05/26/22 01:10 60 18 92 L 05/25/22 23:39 97.1 F 63 17 127/58 92 L 05/25/22 20:00 97.1 F 76 19 111/61 93 L 05/25/22 19:33 62 19 90 L 05/25/22 16:00 99.1 F 56 L 19 122/58 95 05/25/22 13:17 57 L 16 97 05/25/22 12:00 98.4 F 57 L 19 107/54 97 05/25/22 08:00 97.8 F 66 17 109/59 96 Pain Assessment - Last Documented Pain Intensity 6 Pain Scale Used 0-10 Pain Scale Intake and Output: Intake & Output 05/23/22 05/24/22 05/25/22 05/26/22 11:59 11:59 11:59 11:59 Intake Total 1676 580 Balance 1676 580 Weight 55.5 kg Radiology Exams: Radiology Procedures Category Date Time Status CHEST 2 VIEWS (PA AND LAT) Stat Exams 05/24/22 13:32 Completed CHEST WITHOUT CONTRAST [CT] Urgent Exams 05/25/22 09:23 Completed UPPER EXTREMITY W/O CONTRAST [CT] Routine Exams 05/25/22 13:56 Completed Multi-Disciplinary Progress Notes: Multi-Disciplinary Progress Notes 05/25/22 12:39 Case Management Note by Jennifer Laguerre REFERRAL FAXED TO [facility] FOR HELP WITH MEDICAID AND TRANSPORTATION. INSURANCE NAVIGATOR'S PHONE NUMBER ALSO ADDED TO PATIENT'S DC PAPERWORK. PATIENT ALSO GIVEN LIST OF TRANSPORTATION SERVICES TO TAKE HOME Initialized on 05/25/22 12:39 - END OF NOTE Assessment/Plan (1) Right lower lobe pneumonia Current Visit: No Status: Acute Qualifiers: Pneumonia type: due to Pneumococcus Qualified Code(s): J13 - Pneumonia due to Streptococcus pneumoniae Assessment & Plan: Chief Complaint Diagnosis c/o cough, shortness of breath for 3-5 days Allergies Allergy/AdvReac Type Severity Reaction Status Date / Time iodine Allergy Severe Hives Verified 05/24/22 11:57 Vital Signs (Last 24 hours) Temp Pulse Resp BP Pulse Ox 05/26/22 07:15 60 18 93 L 05/26/22 04:00 97.7 F 59 L 16 121/60 95 05/26/22 01:10 60 18 92 L 05/25/22 23:39 97.1 F 63 17 127/58 92 L 05/25/22 20:00 97.1 F 76 19 111/61 93 L 05/25/22 19:33 62 19 90 L 05/25/22 16:00 99.1 F 56 L 19 122/58 95 05/25/22 13:17 57 L 16 97 05/25/22 12:00 98.4 F 57 L 19 107/54 97 05/25/22 08:00 97.8 F 66 17 109/59 96 Home Medications Medication Instructions Recorded Confirmed Last Taken Type Albuterol/Ipratropium 3ml Neb* 1 neb IH Q4HPRN PRN 05/24/22 05/24/22 Unknown History [DUONEB 0.5-3 MG/3 ml Neb] Amlodipine Besylate [Norvasc] 0 mg PO BID 05/24/22 05/24/22 Unknown History Fluticasone/Salmeterol 1 puff IH BIDRT 05/24/22 05/24/22 Unknown History [Advair Hfa Common canister*] Current Medications Generic Name Dose Route Start Last Admin Trade Name Freq PRN Reason Stop Dose Admin Acetaminophen 650 mg 05/24/22 15:10 Acetaminophen 325 Mg Tablet PO 06/23/22 15:09 Q4H PRN PRN PAIN AND/OR FEVER Albuterol Sulfate 2 puff 05/24/22 15:19 Albuterol Common Canister Inhaler 06/23/22 15:18 QIDPRN PRN SHORTNESS OF BREATH/WHEEZING Albuterol/Ipratropium 3 ml 05/24/22 13:00 05/26/22 07:09 Ipratropium/Albuterol Sulfate 3 Ml Ampul.[facility] 06/23/22 12:59 3 ml Q6HRT MICKY Administration Albuterol/Ipratropium 3 ml 05/24/22 15:19 Ipratropium/Albuterol Sulfate 3 Ml Ampul.[facility] 06/23/22 15:18 Q4HPRN PRN SHORTNESS OF BREATH/WHEEZING Carvedilol 25 mg 05/24/22 22:00 05/25/22 21:51 Carvedilol 12.5 Mg Tablet PO 06/23/22 21:59 25 mg BID MICKY Administration Docusate Sodium 100 mg 05/24/22 12:48 Docusate Sodium 100 Mg Capsule PO 06/23/22 12:47 BIDPRN PRN CONSTIPATION Enoxaparin Sodium 40 mg 05/24/22 16:00 05/25/22 09:30 Enoxaparin Sodium 40 Mg/0.4 Ml Syringe SQ 06/23/22 15:59 40 mg DAILY MICKY Administration Furosemide 20 mg 05/24/22 15:10 Furosemide 20 Mg Tablet PO 06/23/22 15:09 DAILY PRN PRN EDEMA Guaifenesin 1,200 mg 05/24/22 22:00 05/25/22 21:53 Guaifenesin 600 Mg Tablet Er PO 06/23/22 21:59 1,200 mg BID MICKY Administration Hydromorphone HCl 0.5 mg 05/25/22 13:12 05/26/22 06:16 Hydromorphone 1 Mg/1ml Inj 1 Mg/Ml Syringe IV 05/30/22 13:11 0.5 mg Q4H PRN PRN Administration PAIN Sodium Chloride 1,000 mls @ 50 mls/hr 05/24/22 13:00 05/25/22 19:16 Sodium Chloride 0.9% 1000 Ml IV 06/23/22 12:59 50 mls/hr .Q20H MICKY Administration Ceftriaxone Sodium/Dextrose 1 g in 50 mls @ 100 mls/hr 05/24/22 16:00 05/25/22 09:29 Rocephin 1 Gm-D5w 50 Ml Bag IV 05/27/22 15:59 100 mls/hr Q24H10 MICKY Administration Azithromycin 500 mg in 250 mls @ 250 mls/hr 05/24/22 16:00 05/25/22 09:31 Zithromax 500 Mg/ 250 Ml Nacl Premix IV 06/23/22 15:59 250 mls/hr Q24H10 MICKY Administration Losartan Potassium 25 mg 05/24/22 22:00 05/25/22 21:51 Losartan Potassium 50 Mg Tablet PO 06/23/22 21:59 25 mg BID MICKY Administration Melatonin 3 mg 05/24/22 15:10 05/25/22 21:53 Melatonin 3 Mg Tablet PO 06/23/22 15:09 3 mg HS PRN Administration INSOMNIA Multivitamins Therapeutic 1 tab 05/25/22 10:00 05/25/22 09:30 Multivitamins,Therapeutic 1 Tab Tab PO 06/24/22 09:59 1 tab DAILY MICKY Administration Pantoprazole Sodium 40 mg 05/25/22 10:00 05/25/22 09:30 Protonix (Pantoprazole) 40 Mg Tablet PO 06/24/22 09:59 40 mg QAM MICKY Administration Polyethylene Glycol 17 gm 05/24/22 15:10 Polyethylene Glycol 3350 17 Gm Packet PO 06/23/22 15:09 DAILY PRN PRN CONSTIPATION Potassium Chloride 20 meq 05/25/22 10:00 05/25/22 09:30 Potassium Chloride Tab 10 Meq Tab PO 06/24/22 09:59 20 meq DAILY MICKY Administration Fluticasone/Salmeterol 2 puff 05/24/22 19:00 05/26/22 07:13 Fluticasone/Salmeterol 115/21 - 120 Puff Common Canister IH 06/23/22 18:59 2 puff BIDRT MICKY Administration Simvastatin 40 mg 05/24/22 22:00 05/25/22 21:51 Simvastatin 20 Mg Tablet PO 06/23/22 21:59 40 mg HS MICKY Administration Discontinued Medications Generic Name Dose Route Start Last Admin Trade Name Freq PRN Reason Stop Dose Admin Acetaminophen 325 mg 05/24/22 12:48 Acetaminophen 325 Mg Tablet PO 06/23/22 12:47 Q4H PRN PRN PAIN, FEVER, HEADACHE Hydromorphone HCl 1 mg 05/25/22 13:12 05/25/22 13:17 Hydromorphone 1 Mg/1ml Inj 1 Mg/Ml Syringe IV 05/25/22 13:13 1 mg STAT ONE Administration Pantoprazole Sodium 40 mg 05/25/22 10:00 Protonix (Pantoprazole) 40 Mg Tablet PO 06/24/22 09:59 DAILY MICKY Fluticasone/Salmeterol 1 puff 05/24/22 19:00 Fluticasone/Salmeterol 115/21 - 120 Puff Common Canister IH 06/23/22 18:59 BIDRT MICKY Intake & Output (Last 24 hours) 05/23/22 05/24/22 05/25/22 05/26/22 11:59 11:59 11:59 11:59 Intake Total 1676 580 Balance 1676 580 Weight 55.5 kg Orders (Last 24 hours) Category Date Time Status CHEST WITHOUT CONTRAST [CT] Urgent Exams 05/25/22 09:23 Completed UPPER EXTREMITY W/O CONTRAST [CT] Routine Exams 05/25/22 13:56 Completed Hydromorphone 1 mg/1Ml Inj [Hydromorphone 1 mg/ml Med 05/25/22 13:12 Active Injection] 0.5 mg IV Q4H PRN PRN Hydromorphone 1 mg/1Ml Inj [Hydromorphone 1 mg/ml Med 05/25/22 13:12 Discontinued Injection] 1 mg IV STAT ONE Multivitamins,Therapeutic Tab* [Theragran Multivitamin* Med 05/25/22 10:00 Active ] 1 tab PO DAILY PANTOPRAZOLE 40 mg Tablet [Protonix 40MG Tablet] Med 05/25/22 10:00 Discontinued 40 mg PO DAILY PANTOPRAZOLE 40 mg Tablet [Protonix 40MG Tablet] Med 05/25/22 10:00 Active 40 mg PO QAM Potassium Chloride Tab* [Klor Con] Med 05/25/22 10:00 Active 20 meq PO DAILY Pulse Oximetry .continuos RT 05/25/22 19:35 Active Patient Care Notes (Last 24 hours) 05/25/22 12:39 Case Management Note by Jennifer Laguerre REFERRAL FAXED TO [facility] FOR HELP WITH MEDICAID AND TRANSPORTATION. INSURANCE NAVIGATOR'S PHONE NUMBER ALSO ADDED TO PATIENT'S DC PAPERWORK. PATIENT ALSO GIVEN LIST OF TRANSPORTATION SERVICES TO TAKE HOME Initialized on 05/25/22 12:39 - END OF NOTE Code(s): J18.9 - PNEUMONIA, UNSPECIFIED ORGANISM (2) COPD exacerbation Current Visit: Yes Status: Acute Code(s): J44.1 - CHRONIC OBSTRUCTIVE PULMONARY DISEASE W (ACUTE) EXACERBATION
[2022-05-26 08:45] VITALS: BP 95/46; PULSE 57; O2SAT 92
[2022-05-26] MEDS: Klor Con PO SCH (10:09)
[2022-05-26] MEDS: Mucinex 600MG ER Tabs PO SCH (10:09)
[2022-05-26] MEDS: ENOXAPARIN SODIUM SQ SCH (10:09)
[2022-05-26] MEDS: COREG 12.5 MG PO SCH (10:09)
[2022-05-26] MEDS: Protonix 40MG Tablet PO SCH (10:10)
[2022-05-26] MEDS: THERAGRAN MULTIVITAMIN PO SCH (10:10)
[2022-05-26] MEDS: Cozaar 50 MG PO SCH (10:10)
[2022-05-26] MEDS: Zithromax 500 MG/ 250 ML NaCl Premix 500 MG/250 ML IVPB IV SCH (10:23)
[2022-05-26] MEDS: ROCEPHIN 1 Gm-D5w 50 ml Bag** 1 G/50 ML IVPB IV SCH (10:23)
--- NOTE | 2022-05-26 20:09 | PCM.DS ---
Discharge Summary Date of Admission: 05/24/22 10:47 Admitting Physician: MARIUSZ LINARES Primary Care Provider: MARIUSZ LINARES Allergies Allergies iodine Allergy (Severe, Verified 05/24/22 11:57) [facility] Summary - Hospital Course Hospital Course: Chief Complaint Diagnosis c/o cough, shortness of breath for 3-5 days Allergies Allergy/AdvReac Type Severity Reaction Status Date / Time iodine Allergy Severe Hives Verified 05/24/22 11:57 Vital Signs (Last 24 hours) Temp Pulse Resp BP Pulse Ox 05/26/22 08:00 97.5 F 57 L 17 95/46 92 L 05/26/22 07:15 60 18 93 L 05/26/22 04:00 97.7 F 59 L 16 121/60 95 05/26/22 01:10 60 18 92 L 05/25/22 23:39 97.1 F 63 17 127/58 92 L Home Medications Medication Instructions Recorded Confirmed Last Taken Type Albuterol/Ipratropium 3ml Neb* 1 neb IH Q4HPRN PRN 05/24/22 05/24/22 Unknown History [DUONEB 0.5-3 MG/3 ml Neb] Amlodipine Besylate [Norvasc] 0 mg PO BID 05/24/22 05/24/22 Unknown History Fluticasone/Salmeterol 1 puff IH BIDRT 05/24/22 05/24/22 Unknown History [Advair Hfa Common canister*] Ibuprofen [Ibu] 400 mg PO TID 7 Days #21 tablet 05/26/22 Unknown Rx levoFLOXacin 0 mg PO DAILY 7 Days #7 tablet 05/26/22 Unknown Rx Current Medications Discontinued Medications Generic Name Dose Route Start Last Admin Trade Name Freq PRN Reason Stop Dose Admin Acetaminophen 325 mg 05/24/22 12:48 Acetaminophen 325 Mg Tablet PO 06/23/22 12:47 Q4H PRN PRN PAIN, FEVER, HEADACHE Acetaminophen 650 mg 05/24/22 15:10 Acetaminophen 325 Mg Tablet PO 06/23/22 15:09 Q4H PRN PRN PAIN AND/OR FEVER Albuterol Sulfate 2 puff 05/24/22 15:19 Albuterol Common Canister Inhaler IH 06/23/22 15:18 QIDPRN PRN SHORTNESS OF BREATH/WHEEZING Albuterol/Ipratropium 3 ml 05/24/22 13:00 05/26/22 07:09 Ipratropium/Albuterol Sulfate 3 Ml Ampul.Formerly [facility] 06/23/22 12:59 3 ml Q6HRT MICKY Administration Albuterol/Ipratropium 3 ml 05/24/22 15:19 Ipratropium/Albuterol Sulfate 3 Ml Ampul.Former[facility] 06/23/22 15:18 Q4HPRN PRN SHORTNESS OF BREATH/WHEEZING Carvedilol 25 mg 05/24/22 22:00 05/26/22 10:09 Carvedilol 12.5 Mg Tablet PO 06/23/22 21:59 25 mg BID MICKY Administration Docusate Sodium 100 mg 05/24/22 12:48 Docusate Sodium 100 Mg Capsule PO 06/23/22 12:47 BIDPRN PRN CONSTIPATION Enoxaparin Sodium 40 mg 05/24/22 16:00 05/26/22 10:09 Enoxaparin Sodium 40 Mg/0.4 Ml Syringe SQ 06/23/22 15:59 40 mg DAILY MICKY Administration Furosemide 20 mg 05/24/22 15:10 Furosemide 20 Mg Tablet PO 06/23/22 15:09 DAILY PRN PRN EDEMA Guaifenesin 1,200 mg 05/24/22 22:00 05/26/22 10:09 Guaifenesin 600 Mg Tablet Er PO 06/23/22 21:59 1,200 mg BID MICKY Administration Hydromorphone HCl 0.5 mg 05/25/22 13:12 05/26/22 06:16 Hydromorphone 1 Mg/1ml Inj 1 Mg/Ml Syringe IV 05/30/22 13:11 0.5 mg Q4H PRN PRN Administration PAIN Hydromorphone HCl 1 mg 05/25/22 13:12 05/25/22 13:17 Hydromorphone 1 Mg/1ml Inj 1 Mg/Ml Syringe IV 05/25/22 13:13 1 mg STAT ONE Administration Sodium Chloride 1,000 mls @ 50 mls/hr 05/24/22 13:00 05/25/22 19:16 Sodium Chloride 0.9% 1000 Ml IV 06/23/22 12:59 50 mls/hr .Q20H MICKY Administration Ceftriaxone Sodium/Dextrose 1 g in 50 mls @ 100 mls/hr 05/24/22 16:00 05/26/22 10:23 Rocephin 1 Gm-D5w 50 Ml Bag IV 05/27/22 15:59 Not Given Q24H10 MICKY Azithromycin 500 mg in 250 mls @ 250 mls/hr 05/24/22 16:00 05/26/22 10:23 Zithromax 500 Mg/ 250 Ml Nacl Premix IV 06/23/22 15:59 Not Given Q24H10 MICKY Losartan Potassium 25 mg 05/24/22 22:00 05/26/22 10:10 Losartan Potassium 50 Mg Tablet PO 06/23/22 21:59 25 mg BID MICKY Administration Melatonin 3 mg 05/24/22 15:10 05/25/22 21:53 Melatonin 3 Mg Tablet PO 06/23/22 15:09 3 mg HS PRN Administration INSOMNIA Multivitamins Therapeutic 1 tab 05/25/22 10:00 05/26/22 10:10 Multivitamins,Therapeutic 1 Tab Tab PO 06/24/22 09:59 1 tab DAILY MICKY Administration Pantoprazole Sodium 40 mg 05/25/22 10:00 Protonix (Pantoprazole) 40 Mg Tablet PO 06/24/22 09:59 DAILY MICKY Pantoprazole Sodium 40 mg 05/25/22 10:00 05/26/22 10:10 Protonix (Pantoprazole) 40 Mg Tablet PO 06/24/22 09:59 40 mg QAM MICKY Administration Polyethylene Glycol 17 gm 05/24/22 15:10 Polyethylene Glycol 3350 17 Gm Packet PO 06/23/22 15:09 DAILY PRN PRN CONSTIPATION Potassium Chloride 20 meq 05/25/22 10:00 05/26/22 10:09 Potassium Chloride Tab 10 Meq Tab PO 06/24/22 09:59 20 meq DAILY MICKY Administration Fluticasone/Salmeterol 2 puff 05/24/22 19:00 05/26/22 07:13 Fluticasone/Salmeterol 115/ - 120 Puff Common Canister IH 06/23/22 18:59 2 puff BIDRT MICKY Administration Fluticasone/Salmeterol 1 puff 05/24/22 19:00 Fluticasone/Salmeterol 115/21 - 120 Puff Common Canister IH 06/23/22 18:59 BIDRT MICKY Simvastatin 40 mg 05/24/22 22:00 05/25/22 21:51 Simvastatin 20 Mg Tablet PO 06/23/22 21:59 40 mg HS MICKY Administration Intake & Output (Last 24 hours) 05/24/22 05/25/22 05/26/22 05/27/22 11:59 11:59 11:59 11:59 Intake Total 1676 820 Balance 1676 820 Weight 55.5 kg Microbiology Results (Last 24 hours) 05/24/22 13:07 Blood Blood Culture Gram Stain - Final Not Reportable 05/24/22 13:07 Blood Blood Culture - Preliminary NO GROWTH TO DATE 05/24/22 13:02 Blood Blood Culture Gram Stain - Final Not Reportable 05/24/22 13:02 Blood Blood Culture - Preliminary NO GROWTH TO DATE Orders (Last 24 hours) Category Date Time Status Discharge Routine Discharge 05/26/22 09:22 Ordered Discharge/Telephone Order Routine Discharge 05/26/22 Active Pulse Oximetry .continuos RT 05/25/22 19:35 Completed Patient Care Notes (Last 24 hours) 05/26/22 11:43 Nursing Note by Vashti Mathis [facility] HAVE BEEN NOTIFIED OF DISCHARGE TO HOME AND PAPERWORK HAS BEEN FAXED [facility] 05-26-22 [id number] Initialized on 05/26/22 11:43 - END OF NOTE 05/26/22 11:30 Nursing Note by Mily Huerta Discharged at this time. Initialized on 05/26/22 11:30 - END OF NOTE 05/26/22 11:05 Nursing Note by Mily Huerta Discharge instructions and education given and understood. Initialized on 05/26/22 11:05 - END OF NOTE 05/26/22 10:00 (created 05/26/22 12:05) Case Management Note by Jennifer Laguerre S/Mily PATIENT- SHE CONTINUES TO DENY ANY NEW NEEDS AT TIME OF DC, C HAS BEEN SET UP. 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 SHE PLANS TO RETURN HOME WITH [facility] Initialized on 05/26/22 09:41 - END OF NOTE 05/26/22 09:36 Case Management Note by Jennifer Laguerre REFERRAL WAS SENT TO [facility]. THEY WILL NEED NOTIFIED AT TIME OF DC AT [phone]. THEY WILL NEED FAXED THE DC INSTRUCTIONS, DC MED LIST, DC SUMMARY ( IF AVAILABLE) TO [phone] Initialized on 05/26/22 09:36 - END OF NOTE - Vitals & Intake/Output Vital Signs: Vital Signs Temperature 97.5 F 05/26/22 08:00 Pulse Rate 57 L 05/26/22 08:00 Respiratory Rate 17 05/26/22 08:00 Blood Pressure 95/46 05/26/22 08:00 O2 Sat by Pulse Oximetry 92 L 05/26/22 08:00 Intake & Output: Intake & Output 05/24/22 05/25/22 05/26/22 05/27/22 11:59 11:59 11:59 11:59 Intake Total 1676 820 Balance 1676 820 Weight 55.5 kg - Lab Result Diagrams: 05/24/22 Unknown 05/24/22 Unknown Micro Results-Entire Visit: Microbiology 05/24/22 13:07 Blood Culture Gram Stain - Final Blood Not Reportable Blood Culture - Preliminary NO GROWTH TO DATE 05/24/22 13:02 Blood Culture Gram Stain - Final Blood Not Reportable Blood Culture - Preliminary NO GROWTH TO DATE - Radiology Exams Ordered Rad Exams-Entire Visit: Radiology Procedures Category Date Time Status CHEST WITHOUT CONTRAST [CT] Urgent Exams 05/25/22 09:23 Completed UPPER EXTREMITY W/O CONTRAST [CT] Routine Exams 05/25/22 13:56 Completed - Procedures and Test Procedures and Tests throughout Hospitalization: Therapy Orders & Screens 05/24/22 12:11 RT Screen per Nursing Assess ONCE Comment: Protocol Order Physician Instructions: Greater than 3 points order RT Admission Screen Reason For Exam: Triggered on Admission Diagnosis: copd exac Diagnosis: copd exac Pneumonia: No Home O2: No Asthma: Yes CHF: No Home CPAP/BIPAP: No Home Nebs/MDI: Yes Total Points: 9 05/24/22 12:48 Oxygen Nasal Cannula 2 lpm Comment: Diagnosis: copd exac Respiratory Therapy Consult ROUTINE Comment: Reason For Exam: Diagnosis: copd exac 05/24/22 13:57 Respiratory Therapy Assessment DAILY Comment: Diagnosis: copd exac Discharge Exam General Appearance: no apparent distress, alert Neurologic Exam: alert, oriented x 3, cooperative, normal mood/affect, nml c erebellar function, sensation nml, No motor deficits Eye Exam: PERRL, EOMI, eyes nml inspection Ears, Nose, Throat Exam: normal ENT inspection, pharynx normal, moist mucous membranes Neck Exam: normal inspection, non-tender, supple, full range of motion Respiratory Exam: normal breath sounds, lungs clear, No respiratory distress Cardiovascular Exam: regular rate/rhythm, normal heart sounds Gastrointestinal/Abdomen Exam: soft, No tenderness, No mass Pelvic Exam: deferred Rectal Exam: deferred Back Exam: normal inspection, normal range of motion, No CVA tenderness, No ve rtebral tenderness Extremity Exam: normal inspection, normal range of motion Skin Exam: normal color, warm, dry Final Diagnosis/Problem List - Final Discharge Diagnosis/Problem (1) Right lower lobe pneumonia Status: Resolved Assessment & Plan: Last Vital Signs Temp 97.5 F 05/26/22 08:00 Pulse 57 L 05/26/22 08:00 Resp 17 05/26/22 08:00 BP 95/46 05/26/22 08:00 Pulse Ox 92 L 05/26/22 08:00 Allergies iodine Allergy (Severe, Verified 05/24/22 11:57) Hives Intake & Output 05/26/22 05/27/22 11:59 11:59 Intake Total 820 Balance 820 Orders 05/26/22 Discharge/Telephone Order Routine 05/26/22 09:22 Discharge Routine Microbiology 05/24/22 13:07 Blood Blood Culture Gram Stain - Final Not Reportable 05/24/22 13:07 Blood Blood Culture - Preliminary NO GROWTH TO DATE 05/24/22 13:02 Blood Blood Culture Gram Stain - Final Not Reportable 05/24/22 13:02 Blood Blood Culture - Preliminary NO GROWTH TO DATE Code(s): J18.9 - PNEUMONIA, UNSPECIFIED ORGANISM (2) COPD exacerbation Status: Acute Code(s): J44.1 - CHRONIC OBSTRUCTIVE PULMONARY DISEASE W (ACUTE) EXACERBATION - Discharge Discharge Date: 05/26/22 [facility]position: [facility] Condition: Stable Prescriptions: New Ibuprofen [Ibu] 400 mg PO TID 7 Days #21 tablet levoFLOXacin 0 mg PO DAILY 7 Days #7 tablet Continue Potassium Chloride [Klor-Con] 20 meq PO DAILY Losartan Potassium [Cozaar] 25 mg PO BID Furosemide [Lasix] 20 mg PO DAILY PRN PRN PRN Reason: EDEMA Carvedilol [Coreg] 25 mg PO BID Multivitamin [Multiple Vitamins] 1 each PO DAILY Guaifenesin 600 mg ER [Mucinex 600MG ER Tabs] 1,200 mg PO BID tablet PANTOPRAZOLE 40 mg Tablet [Protonix 40MG Tablet] 40 mg PO QAM #30 tab Atorvastatin Calcium 80 mg PO HS Albuterol Sulfate [Proair Respiclick] 2 puff IH QID PRN PRN Reason: Shortness Of Breath/Wheezing Polyethylene Glycol 3350 17 gm [Miralax Powder 17GM PACKET] 17 gm PO DAILY PRN PRN PRN Reason: Constipation Melatonin 3 mg PO HS PRN PRN Reason: Insomnia Acetaminophen 325 mg [Tylenol 325 mg] 650 mg PO Q4H PRN PRN tablet PRN Reason: Pain And/Or Fever Fluticasone/Salmeterol 115/21 [Advair Hfa 115/21 Common canister*] 1 puff IH BIDRT Amlodipine Besylate [Norvasc] 0 mg PO BID Albuterol/Ipratropium 3ml Neb* [DUONEB 0.5-3 MG/3 ml Neb] 1 neb IH Q4HPRN PRN PRN Reason: Shortness Of Breath/Wheezing Instructions: Pneumonia in Adults Additional Instructions: [facility] WAS SET UP. THEY WILL BE CALLING YOU TO ARRANGE A VISIT. THEIR PHONE NUMBER IS [phone]. A REFERRAL WAS SENT TO [facility] TO SEE IF THEY CAN HELP TO GET YOU ON MEDICAID TO ASSIST WITH MEDICATIONS AND TRANSPORTATION. THEY SHOULD BE CALLING YOU TO DISCUSS YOUR CASE. THEIR PHONE NUMBER IS [phone]. YOU CAN ALSO CALL ADOLFO BLANTON (FORMERLY [facility] INSURANCE NAVIGATOR) AT [phone] TO DISCUSS MEDICAID WELL Follow up with: MARIUSZ LINARES MD [Primary Care Provider] - 06/02/22 10:15 am (FOLLOW UP WILL BE AT THE [facility]ICE. ) Forms: Discharge Instructions
== END 2022-05-26 11:25 | disposition home health service (06) ==
LOC: MED SURG 10:47
PROVIDERS: ADMIT General Practice; ATTEND General Practice
DX: J18.9 Pneumonia, unspecified organism (principal); J44.1 Chronic obstructive pulmonary disease with (acute) exacerbation; I25.10 Atherosclerotic heart disease of native coronary artery without angina pectoris; E78.00 Pure hypercholesterolemia, unspecified; I10 Essential (primary) hypertension; Z79.899 Other long term (current) drug therapy; Z20.828 Contact with and (suspected) exposure to other viral communicable diseases
CPT/HCPCS: 0241U; 36415; 71046; 71250; 73200; 80053; 83880; 85025; 87040; 94640; 94760; 94762; 93268; J0456; J0696; J1170; J1650; A9270-GY; G0378

== ENCOUNTER 2022-10-16 12:14 | Emergency (ER) | payer MEDICARE, BC ==
[2022-10-16] MEDS ORDERED: DUONEB 0.5-3 MG/3 ml Neb IH ONE ×2 (14:22→14:31)
[2022-10-16] MEDS ORDERED: solu-MEDROL 125 MG, Sterile H2O 10 ml 2 ML IV ONE ×2 (14:22)
[2022-10-16] MEDS ORDERED: solu-MEDROL ONE (14:28)
[2022-10-16] MEDS ORDERED: Sterile H2O 10 ml IJ ONE (14:28)
[2022-10-16 15:17] LABS: Absolute Neutrophil Ct (ANC) 5.18 x10^3/uL (1.4-6.9); Basophil (Absolute #) 0.08 x10^3/uL (0-0.4); Eosinophil % 0.5 % (0.00-5.0); Eosinophil (Absolute #) 0.05 x10^3/uL (0-0.5); Hematocrit 32.8 % (35-47); Hemoglobin 10.4 g/dL (12.0-16.0); Lymphocyte (Absolute #) 3.38 x10^3/uL (1.0-4.6); Lymphocytes % 32.8 % (24.0-44.0); Mean Cell Volume 105.1 fL (78-100); Mean Corpuscular Hemoglobin 33.3 pg (26-32); Mean Corpuscular Hgb Concent. 31.7 g/dL (32-36); Mean Platelet Volume 8.8 fL (7.5-11.0); Monocyte (Absolute #) 1.58 x10^3/uL (0.0-1.3); Monocytes % 15.3 % (0.0-12.0); Neutrophil % 50.3 % (36.0-66.0); Platelet Count 255 x10^3/uL (150-450); Red Blood Count 3.12 x10^6/uL (4.1-5.4); Red Cell Distribution Width 14.1 % (11.5-14.0); White Blood Count 10.3 x10^3/uL (4.0-10.5)
[2022-10-16 15:29] LABS: ALBUMIN 3.6 g/dL (3.5-5.0); ALKALINE PHOSPHATASE 105 U/L (38-126); ANION GAP 9.7 MEQ/L (5-15); BLOOD UREA NITROGEN 12 mg/dL (7-17); CHLORIDE 107 mmol/L (98-107); Calcium 8.8 mg/dL (8.4-10.2); Carbon Dioxide 22 mmol/L (22-30); Creatinine 1 0.68 mg/dL (0.52-1.04); EST GLOMERULAR FILTRATION RATE > 60.0 ML/MIN; Glucose 115 mg/dL (74-106); MAGNESIUM 1.9 mg/dL (1.6-2.3); Potassium 4.3 mmol/L (3.5-5.1); SGOT/AST 33 U/L (14-36); SGPT/ALT 20 U/L (0-35); SODIUM 135 mmol/L (137-145); Total Protein 6.6 g/dL (6.3-8.2)
[2022-10-16 15:53] LABS: INR 1.04 (0.8-3.0); PTT 26.7 SECONDS (25.1-36.5)
--- NOTE | 2022-10-16 15:59 | XRAY ---
Indication: Short of breath. Pneumonia. Comparison: October 02, 2022 PA/lateral chest again demonstrates COPD. Minimal worsening left midlung and left base base infiltrates/atelectasis. 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
[2022-10-16 16:09] LABS: D-DIMER QUANTITATIVE 1.08 mg/L (0.0-0.50)
[2022-10-16 16:27] LABS: Slide Review 1 YES
[2022-10-16] MEDS ORDERED: BENADRYL 50 MG/ML IV ONE (18:40)
[2022-10-16] MEDS ORDERED: BENADRYL 50 MG/ML ONE (18:51)
[2022-10-16 20:04] LABS: INFLUENZA A NEGATIVE (NEGATIVE); INFLUENZA B NEGATIVE (NEGATIVE); RESPIRATORY SYNCTIAL VIRUS NEGATIVE (Negative); SARS-CoV-2 Xpert Express NEGATIVE (NEGATIVE)
--- NOTE | 2022-10-16 21:52 | ERPHSYRPT ---
- History of Present Illness Time Seen by Provider: 10/16/22 12:42 Source: patient Exam Limitations: no limitations Patient Subjective Stated Complaint: "I've been short of breath for the past 3 or 4 days and I've had a bad cough. My chest hurts from coughing." Triage Nursing Assessment: Pt presents to ER with complaints of shortness of breath x 3-4 days, states has had productive cough with thick green sputum. Noted to have mild wheezes and crackles on left lungs sounds, right sided lung sounds clear throughout. Pt is alert and oriented x 3. Skin is pale, warm, and dry. States has had nausea, vomiting, and diarrhea also. Pt is afebrile upon triage. Brought back to ER in wheelchair, states neighbor drove her to ER. Pt appears short of breath and weak. Physician History: 77yo F presents to the ER w/ a 3 day hx of worsening SOB. She just finished abx for PNA last week. She reports a productive cough, wheezing and inability to catch her breath. She also reports F/C, but denies N/V, CP, palpitations or swelling. Timing/Duration: day(s) (3) Activities at Onset: rest Severity of Dyspnea-Max: severe Severity of Dyspnea-Current: severe Possible Cause: frequent episodes Modifying Factors: Improves With: albuterol inhaler, albuterol nebulizer. Worsens With: activity, coughing, deep breath, exertion Associated Symptoms: cough, fever, loss of appetite, wheezing, weakness, chills, productive cough, No edema, No hemoptysis, No calf pain, No leg swelling Allergies/Adverse Reactions: iodine Allergy (Severe, Verified 10/16/22 12:25) Hives Home Medications: Carvedilol [Coreg] 25 mg PO BID 08/06/20 [History] Losartan Potassium [Cozaar] 25 mg PO BID 08/06/20 [History] Potassium Chloride [Klor-Con] 20 meq PO DAILY 08/06/20 [History] Multivitamin [Multiple Vitamins] 1 each PO DAILY 05/23/21 [History] Albuterol Sulfate [Proair Respiclick] 2 puff IH QID PRN 01/08/22 [History] Atorvastatin Calcium 80 mg PO HS 01/08/22 [History] Melatonin 3 mg PO HS PRN 01/08/22 [History] Polyethylene Glycol 3350 17 gm [Miralax Powder 17GM PACKET] 17 gm PO DAILY PRN PRN 01/08/22 [History] Albuterol/Ipratropium 3ml Neb* [DUONEB 0.5-3 MG/3 ml Neb] 1 neb IH Q4HPRN PRN 05/24/22 [History] Amlodipine Besylate [Norvasc] 5 mg PO BID 05/24/22 [History] Fluticasone/Salmeterol [Advair Hfa 115 Common canister*] 1 puff IH BIDRT 05/24/22 [History] Hx Tetanus, Diphtheria Vaccination/Date Given: No (unknown) Hx Influenza Vaccination/Date Given: Yes Hx Pneumococcal Vaccination/Date Given: No Immunizations Up to Date: No Travel Risk - International Travel Have you traveled outside of the country in past 3 weeks: No - Coronavirus Screening Are you exhibiting any of the following symptoms?: Yes Symptoms: Shortness of Breath - Vaccine Status Have you recieved a Covid-19 vaccination: Yes [employer]: Moderna - Vaccination Dates Date of 2cond Vaccination (if applicable): 02/01/21 - Review of Systems Constitutional: Fever, Chills, Fatigue, Malaise, Weakness Eyes: No Symptoms Ears, Nose, & Throat: No Symptoms Respiratory: Cough, Dyspnea, Dyspnea on Exertion ([place]), Wheezing Cardiac: No Chest Pain, No Edema, No Palpitations Abdominal/Gastrointestinal: Nausea, Vomiting, Diarrhea Genitourinary Symptoms: No Symptoms Musculoskeletal: No Symptoms Skin: No Symptoms Neurological: No Symptoms Psychological: No Symptoms Endocrine: No Symptoms Hematologic/Lymphatic: No Symptoms Immunological/Allergic: No Symptoms All Other Systems: Reviewed and Negative - Past Medical History Pertinent Past Medical History: Yes Neurological History: No Pertinent History ENT History: Cataracts Cardiac History: Coronary Artery Disease, High Cholesterol, Hypertension Respiratory History: COPD, Emphysema, Pneumonia Endocrine Medical History: No Pertinent History Musculoskeletal History: Arthritis, Osteoarthritis GI Medical History: GERD, Polyps History: No Pertinent History Psycho-Social History: No Pertinent History Female Reproductive Disorders: No Pertinent History Other Medical History: bleeding ulcer - Past Surgical History Past Surgical History: Yes Neuro Surgical History: No Pertinent History Cardiac: CABG Respiratory: No Pertinent History Gastrointestinal: Appendectomy, Cholecystectomy Genitourinary: No Pertinent History Musculoskeletal: Orthopedic Surgery Female Surgical History: Hysterectomy, Tubal Ligation Other Surgical History: 2 screws in lower back,carpal tunnel release to right wrist. ankle sx. bleeding ulcer repair - Social History Smoking Status: Former smoker Exposure to second hand smoke: No Drug Use: none Patient Lives Alone: Yes - Nursing Vital Signs Nursing Vital Signs: Initial Vital Signs Temperature 97.9 F 10/16/22 12:15 Pulse Rate 69 10/16/22 12:15 Respiratory Rate 24 10/16/22 12:15 Blood Pressure 96/58 10/16/22 12:15 O2 Sat by Pulse Oximetry 94 L 10/16/22 12:15 Pain Scale Pain Intensity 0 - Physical Exam General Appearance: mild distress Eye Exam: PERRL/EOMI Ears, Nose, Throat Exam: hearing grossly normal Neck Exam: normal inspection, non-tender, supple, full range of motion Respiratory Exam: diminished breath sounds, wheezing Cardiovascular/Chest Exam: normal heart sounds, regular rate/rhythm Abdominal/Gastrointestinal Exam: soft, No tenderness, No distention, No guarding, No rebound Extremity Exam: non-tender, No no calf tenderness, No swelling, No colleen's sign Neurologic Exam: alert, oriented x 3, cooperative Skin Exam: normal color, warm, dry SpO2 Interpretation: normal SpO2: 96 O2 Delivery: Room Air - Course Nursing assessment & vital signs reviewed: Yes EKG Interpreted by Me: RATE (63), Sinus Rhythm, NORMAL AXIS, NORMAL INTERVALS, NORMAL QRS, NORMAL ST-T - Radiology Exams Chest X-ray Interpretation: Reviewed by me, Infiltrates (LLL) - CT Exams Chest CT Interpretation: No PE, Pneumonia (LLL) Ordered Tests: Medication Summary Discontinued Medications Generic Name Dose Route Start Last Admin Trade Name Trellq PRN Reason Stop Dose Admin Albuterol/Ipratropium 3 ml 10/16/22 14:22 10/16/22 14:40 Ipratropium/Albuterol Sulfate 3 Ml Ampul.Neb IH 10/16/22 14:23 3 ml STAT ONE Administration Albuterol/Ipratropium Confirm 10/16/22 14:31 Ipratropium/Albuterol Sulfate 3 Ml Ampul.Neb Administered 10/16/22 14:32 Dose 3 ml IH .STK-MED ONE Methylprednisolone Sodium 0 mg 10/16/22 14:22 10/16/22 14:29 Succinate 125 mg/ Sterile IV 10/16/22 14:23 125 mg Water 2 ml STAT ONE Administration Diphenhydramine HCl 50 mg 10/16/22 18:40 10/16/22 18:51 Diphenhydramine Hcl 50 Mg/Ml Vial IV 10/16/22 18:41 50 mg STAT ONE Administration Diphenhydramine HCl Confirm 10/16/22 18:51 Diphenhydramine Hcl 50 Mg/Ml Vial Administered 10/16/22 18:52 Dose 50 mg .ROUTE .STK-MED ONE Methylprednisolone Sodium Succinate Confirm 10/16/22 14:28 Methylprednis Sod Succ 125 Mg/2 Ml Vial Administered 10/16/22 14:29 Dose 125 mg .ROUTE .STK-MED ONE Sterile Water Confirm 10/16/22 14:28 Water For Injection,Sterile 10 Ml Vial Administered 10/16/22 14:29 Dose 10 ml IJ .STK-MED ONE Lab/Rad Data: Laboratory Result Diagrams 10/16/22 14:22 10/16/22 15:05 Laboratory Results 10/16/22 10/16/22 10/16/22 Range/Units 19:15 18:05 15:06 WBC (4.0-10.5) x10^3/uL RBC (4.1-5.4) x10^6/uL Hgb (12.0-16.0) g/dL Hct (35-47) % MCV (78-100) fL MCH (26-32) pg MCHC (32-36) g/dL RDW (11.5-14.0) % Plt Count (150-450) x10^3/uL MPV (7.5-11.0) fL Gran % (36.0-66.0) % Immature Gran % (Auto) (0.00-0.4) % Nucleat RBC Rel Count (0.00-0.1) % Eos # (Auto) (0-0.5) x10^3/uL Immature Gran # (Auto) (0.00-0.03) x10^3u/L Absolute Lymphs (auto) (1.0-4.6) x10^3/uL Absolute Monos (auto) (0.0-1.3) x10^3/uL Absolute Nucleated RBC (0.00-0.01) x10^3u/L Lymphocytes % (24.0-44.0) % Monocytes % (0.0-12.0) % Eosinophils % (0.00-5.0) % Basophils % (0.0-0.4) % Absolute Granulocytes (1.4-6.9) x10^3/uL Basophils # (0-0.4) x10^3/uL PT (9.4-12.5) SECONDS INR (0.8-3.0) APTT (25.1-36.5) SECONDS D-Dimer (0.0-0.50) mg/L Sodium (137-145) mmol/L Potassium (3.5-5.1) mmol/L Chloride (98-107) mmol/L Carbon Dioxide (22-30) mmol/L Anion Gap (5-15) MEQ/L BUN (7-17) mg/dL Creatinine (0.52-1.04) mg/dL Estimated GFR ML/MIN Glucose (74-106) mg/dL Lactic Acid 0.6 (0.4-2.0) Calcium (8.4-10.2) mg/dL Magnesium (1.6-2.3) mg/dL Total Bilirubin (0.2-1.3) mg/dL AST (14-36) U/L ALT (0-35) U/L Alkaline Phosphatase (38-126) U/L Troponin I < 0.012 (0.000-0.034) ng/mL Serum Total Protein (6.3-8.2) g/dL Albumin (3.5-5.0) g/dL Procalcitonin (0.030-0.080) ng/mL Influenza Type A Ag NEGATIVE (NEGATIVE) Influenza Type B Ag NEGATIVE (NEGATIVE) RSV (PCR) NEGATIVE (Negative) SARS-CoV-2 (PCR) NEGATIVE (NEGATIVE) Slides for Path Review 10/16/22 10/16/22 10/16/22 Range/Units 15:05 15:05 15:05 WBC (4.0-10.5) x10^3/uL RBC (4.1-5.4) x10^6/uL Hgb (12.0-16.0) g/dL Hct (35-47) % MCV (78-100) fL MCH (26-32) pg MCHC (32-36) g/dL RDW (11.5-14.0) % Plt Count (150-450) x10^3/uL MPV (7.5-11.0) fL Gran % (36.0-66.0) % Immature Gran % (Auto) (0.00-0.4) % Nucleat RBC Rel Count (0.00-0.1) % Eos # (Auto) (0-0.5) x10^3/uL Immature Gran # (Auto) (0.00-0.03) x10^3u/L Absolute Lymphs (auto) (1.0-4.6) x10^3/uL Absolute Monos (auto) (0.0-1.3) x10^3/uL Absolute Nucleated RBC (0.00-0.01) x10^3u/L Lymphocytes % (24.0-44.0) % Monocytes % (0.0-12.0) % Eosinophils % (0.00-5.0) % Basophils % (0.0-0.4) % Absolute Granulocytes (1.4-6.9) x10^3/uL Basophils # (0-0.4) x10^3/uL PT 11.0 (9.4-12.5) SECONDS INR 1.04 (0.8-3.0) APTT 26.7 (25.1-36.5) SECONDS D-Dimer 1.08 H* (0.0-0.50) mg/L Sodium (137-145) mmol/L Potassium (3.5-5.1) mmol/L Chloride (98-107) mmol/L Carbon Dioxide (22-30) mmol/L Anion Gap (5-15) MEQ/L BUN (7-17) mg/dL Creatinine (0.52-1.04) mg/dL Estimated GFR ML/MIN Glucose (74-106) mg/dL Lactic Acid (0.4-2.0) Calcium (8.4-10.2) mg/dL Magnesium (1.6-2.3) mg/dL Total Bilirubin (0.2-1.3) mg/dL AST (14-36) U/L ALT (0-35) U/L Alkaline Phosphatase (38-126) U/L Troponin I < 0.012 (0.000-0.034) ng/mL Serum Total Protein (6.3-8.2) g/dL Albumin (3.5-5.0) g/dL Procalcitonin 0.087 H (0.030-0.080) ng/mL Influenza Type A Ag (NEGATIVE) Influenza Type B Ag (NEGATIVE) RSV (PCR) (Negative) SARS-CoV-2 (PCR) (NEGATIVE) Slides for Path Review 10/16/22 10/16/22 Range/Units 15:05 14:22 WBC 10.3 (4.0-10.5) x10^3/uL RBC 3.12 L (4.1-5.4) x10^6/uL Hgb 10.4 L (12.0-16.0) g/dL Hct 32.8 L (35-47) % MCV 105.1 H (78-100) fL MCH 33.3 H (26-32) pg MCHC 31.7 L (32-36) g/dL RDW 14.1 H (11.5-14.0) % Plt Count 255 (150-450) x10^3/uL MPV 8.8 (7.5-11.0) fL Gran % 50.3 (36.0-66.0) % Immature Gran % (Auto) 0.3 (0.00-0.4) % Nucleat RBC Rel Count 0.0 (0.00-0.1) % Eos # (Auto) 0.05 (0-0.5) x10^3/uL Immature Gran # (Auto) 0.03 (0.00-0.03) x10^3u/L Absolute Lymphs (auto) 3.38 (1.0-4.6) x10^3/uL Absolute Monos (auto) 1.58 H (0.0-1.3) x10^3/uL Absolute Nucleated RBC 0.00 (0.00-0.01) x10^3u/L Lymphocytes % 32.8 (24.0-44.0) % Monocytes % 15.3 H (0.0-12.0) % Eosinophils % 0.5 (0.00-5.0) % Basophils % 0.8 (0.0-0.4) % Absolute Granulocytes 5.18 (1.4-6.9) x10^3/uL Basophils # 0.08 (0-0.4) x10^3/uL PT (9.4-12.5) SECONDS INR (0.8-3.0) APTT (25.1-36.5) SECONDS D-Dimer (0.0-0.50) mg/L Sodium 135 L (137-145) mmol/L Potassium 4.3 (3.5-5.1) mmol/L Chloride 107 (98-107) mmol/L Carbon Dioxide 22 (22-30) mmol/L Anion Gap 9.7 (5-15) MEQ/L BUN 12 (7-17) mg/dL Creatinine 0.68 (0.52-1.04) mg/dL Estimated GFR > 60.0 ML/MIN Glucose 115 H (74-106) mg/dL Lactic Acid (0.4-2.0) Calcium 8.8 (8.4-10.2) mg/dL Magnesium 1.9 (1.6-2.3) mg/dL Total Bilirubin 0.70 (0.2-1.3) mg/dL AST 33 (14-36) U/L ALT 20 (0-35) U/L Alkaline Phosphatase 105 (38-126) U/L Troponin I (0.000-0.034) ng/mL Serum Total Protein 6.6 (6.3-8.2) g/dL Albumin 3.6 (3.5-5.0) g/dL Procalcitonin (0.030-0.080) ng/mL Influenza Type A Ag (NEGATIVE) Influenza Type B Ag (NEGATIVE) RSV (PCR) (Negative) SARS-CoV-2 (PCR) (NEGATIVE) Slides for Path Review YES - Progress Progress: improved Air Movement: fair Progress Note: Air movement significantly improved after steroids and nebs. CXR and CT chest showed LLL PNA will d/c on Doxy and Prednisone burst. Patient given strict return instructions and close PCP f/u stressed. 10/19/22 15:55 Blood Culture(s) Obtained: No Antibiotics given: Yes Counseled pt/family regarding: lab results, diagnosis, need for follow-up, rad results - Departure Departure Disposition: Home Clinical Impression: COPD with exacerbation LLL pneumonia Qualifiers: Pneumonia type: due to unspecified organism Qualified Code(s): J18.9 - Pneum onia, unspecified organism Condition: Good Critical Care Time: No Referrals: MARIUSZ LINARES MD [Primary Care Provider] - Follow Up with PCP/3 days Instructions: Chronic Obstructive Pulmonary Disease, Pneumonia, Adult (DC), Exacerbation of COPD (DC) Additional Instructions: You were evaluated in the Emergency Department today for shortness of breath. Your symptoms improved with DuoNebs and steroids, and your evaluation did not show evidence of medical conditions requiring emergent intervention at this time. You have been given a prescription for steroids and Doxycycline for a LLL infiltrate, please take them as directed. Please follow up with your primary care physician within two days. Return to the Emergency Department if you experience worsening shortness of breath, chest pain, headache, light headedness, or any other concerning symptoms. Prescriptions: Doxycycline Hyclate 100 mg PO BID 7 Days #14 tablet predniSONE [Prednisone] 50 mg PO DAILY 5 Days #5 tablet
[2022-10-16 21:58] VITALS: BP 119/65; PULSE 65
--- NOTE | 2022-10-17 08:42 | XRAY ---
Indication: Short of breath. Elevated d-dimer. Pulmonary embolus. Multiple contiguous axial images obtained through the chest using 80 cc Isovue 370 contrast and PE protocol. Comparison: September 04, 2022 Good opacification of the pulmonary arteries to include the lobar and segmental branches. No pulmonary embolus. Heart is not enlarged again with CABG. Aorta again moderately etcher sclerotic without aneurysm/dissection. No pathologic mediastinal/hilar lymphadenopathy. Lungs demonstrate interval worsening left lower lobe patchy consolidating and nonconsolidating airspace disease with new tiny effusion. Remaining lungs again demonstrates mild diffuse pulmonary emphysema, scattered fibrosis/scarring bilaterally, and small posterior right lower lobe calcified granuloma. Posterior lateral left upper lobe demonstrates stable subsegmental atelectasis/scarring. Bony thorax intact again with osteopenia and sternotomy wires. Limited upper abdomen demonstrate fatty liver and cholecystectomy clips. Impression: 1. Negative pulmonary embolus. 2. Worsening left lower lobe consolidating and nonconsolidating airspace disease with new tiny effusion. 3. Chronic findings including pulmonary emphysema, fibrosis/scarring, arteriosclerotic disease, and old granulomatous disease.
[2022-10-19 15:50] VITALS: O2SAT 96
== END 2022-10-16 22:02 | disposition home or self-care (01) ==
LOC: ED 12:14
DX: J44.1 Chronic obstructive pulmonary disease with (acute) exacerbation (principal); J18.9 Pneumonia, unspecified organism; R06.02 Shortness of breath; R05.1 Acute cough; E78.5 Hyperlipidemia, unspecified; I10 Essential (primary) hypertension; Z79.52 Long term (current) use of systemic steroids; Z79.899 Other long term (current) drug therapy; Z20.828 Contact with and (suspected) exposure to other viral communicable diseases
CPT/HCPCS: 0241U; 36000; 36415; 71046; 71260; 80053; 83605; 83735; 84145; 84484; 85025; 85379; 85610; 85730; 87040; 93005; 93041; 94640; 94760; 96374; 96375; 99284; J1200; J2930; A9270-GY

== ENCOUNTER 2022-10-24 11:08 | Emergency (ER) | payer MEDICARE, BC ==
[2022-10-24] MEDS ORDERED: Zofran 4 MG/2 ML VIAL IV ONE (11:33)
[2022-10-24] MEDS ORDERED: SUBLIMAZE 100 MCG/2 ML IV ONE (11:33)
[2022-10-24] MEDS ORDERED: Zofran 4 MG/2 ML VIAL ONE (11:38)
[2022-10-24] MEDS ORDERED: SUBLIMAZE 100 MCG/2 ML ONE (11:38)
[2022-10-24] MEDS ORDERED: Sodium Chloride 0.9% 1000 ML 1,000 ML ONE (11:39)
[2022-10-24 11:41] VITALS: PULSE 65
[2022-10-24] MEDS ORDERED: Sodium Chloride 0.9% 1000 ML 1,000 ML IV SCH (11:45)
[2022-10-24 11:51] LABS: Absolute Neutrophil Ct (ANC) 10.58 x10^3/uL (1.4-6.9); Basophil (Absolute #) 0.02 x10^3/uL (0-0.4); Eosinophil % 0.3 % (0.00-5.0); Eosinophil (Absolute #) 0.05 x10^3/uL (0-0.5); Hematocrit 38.7 % (35-47); Hemoglobin 12.6 g/dL (12.0-16.0); Lymphocyte (Absolute #) 2.83 x10^3/uL (1.0-4.6); Lymphocytes % 18.6 % (24.0-44.0); Mean Corpuscular Hemoglobin 32.6 pg (26-32); Mean Corpuscular Hgb Concent. 32.6 g/dL (32-36); Mean Platelet Volume 8.4 fL (7.5-11.0); Monocyte (Absolute #) 1.62 x10^3/uL (0.0-1.3); Monocytes % 10.7 % (0.0-12.0); Neutrophil % 69.7 % (36.0-66.0); Platelet Count 307 x10^3/uL (150-450); Red Blood Count 3.87 x10^6/uL (4.1-5.4); Red Cell Distribution Width 14.3 % (11.5-14.0); White Blood Count 15.2 x10^3/uL (4.0-10.5)
[2022-10-24 12:05] LABS: ALBUMIN 3.6 g/dL (3.5-5.0); ALKALINE PHOSPHATASE 84 U/L (38-126); BLOOD UREA NITROGEN 25 mg/dL (7-17); CHLORIDE 102 mmol/L (98-107); Calcium 9.1 mg/dL (8.4-10.2); Carbon Dioxide 24 mmol/L (22-30); Creatinine 1 0.89 mg/dL (0.52-1.04); EST GLOMERULAR FILTRATION RATE > 60.0 ML/MIN; Glucose 110 mg/dL (74-106); Potassium 3.8 mmol/L (3.5-5.1); SGOT/AST 29 U/L (14-36); SGPT/ALT 19 U/L (0-35); SODIUM 133 mmol/L (137-145); Total Protein 6.5 g/dL (6.3-8.2)
--- NOTE | 2022-10-24 12:24 | XRAY ---
Indication: Posterior head injury with loss of consciousness following fall 3 days ago. Multiple contiguous axial images obtained through the head without contrast. Comparison: November 04, 2021 Again age-appropriate global atrophy and mild periventricular degenerative micro-ischemia bilaterally. No acute intracranial hemorrhage, abnormal extra-axial fluid collection, or mass effect. Fourth ventricle is midline without hydrocephalus. Bony calvarium intact. Visualized paranasal sinuses and mastoid air cells are clear. Impression: Continued nonacute senile brain.
--- NOTE | 2022-10-24 12:26 | XRAY ---
Indication: Pain following fall 3 days ago. Comparison: November 06, 2019 Portable AP pelvis and 2 view left hip unchanged again demonstrating osteopenia, lumbosacral junction fusion hardware, left inguinal surgical clip, and moderate scattered vascular calcifications. No new/acute findings.
--- NOTE | 2022-10-24 12:39 | ERPHSYRPT ---
- History of Present Illness Time Seen by Provider: 10/24/22 11:35 Source: patient, family Patient Subjective Stated Complaint: pt states "I fell Sunday and hit my head." Triage Nursing Assessment: pt came into the via wheelchair; pt is axo x4; c/o fall; pt states 9/10 pain to left hip and head; pt unsure if LOC; bruising present to left hip; no rotation or shortening present; pt has tenderness to left side of head; vitals wnl; skin is PDW Physician History: Patient is a 77-year-old female who presents after a fall on Sunday or 4 days ago. She hit the left posterior side of her head and she complains of left hip pain. The left hip pain started approximately 2 days after the fall she had no loss of consciousness she is on no blood thinners. Occurred: days ago (4) Reason for Fall: tripped Injuries/Pain Location: head (Left occipital area), pelvis (Left hip) Loss of Consciousness: no loss of consciousness Severity of Pain-Max: moderate Severity of Pain-Current: moderate Modifying Factors: Improves With: movement Allergies/Adverse Reactions: iodine Allergy (Severe, Verified 10/24/22 11:28) Hives Home Medications: Carvedilol [Coreg] 25 mg PO BID 08/06/20 [History] Losartan Potassium [Cozaar] 25 mg PO BID 08/06/20 [History] Potassium Chloride [Klor-Con] 20 meq PO DAILY 08/06/20 [History] Multivitamin [Multiple Vitamins] 1 each PO DAILY 05/23/21 [History] Albuterol Sulfate [Proair Respiclick] 2 puff IH QID PRN 01/08/22 [History] Atorvastatin Calcium 80 mg PO HS 01/08/22 [History] Melatonin 3 mg PO HS PRN 01/08/22 [History] Polyethylene Glycol 3350 17 gm [Miralax Powder 17GM PACKET] 17 gm PO DAILY PRN PRN 01/08/22 [History] Albuterol/Ipratropium 3ml Neb* [DUONEB 0.5-3 MG/3 ml Neb] 1 neb IH Q4HPRN PRN 05/24/22 [History] Amlodipine Besylate [Norvasc] 5 mg PO BID 05/24/22 [History] Fluticasone/Salmeterol 115/21 [Advair Hfa 115/21 Common canister*] 1 puff IH BIDRT 05/24/22 [History] Hx Tetanus, Diphtheria Vaccination/Date Given: No (unknown) Hx Influenza Vaccination/Date Given: Yes Hx Pneumococcal Vaccination/Date Given: Yes Travel Risk - International Travel Have you traveled outside of the country in past 3 weeks: No - Coronavirus Screening Are you exhibiting any of the following symptoms?: No Close contact with a COVID-19 positive Pt in past 14-21 Days: No - Vaccine Status Have you recieved a Covid-19 vaccination: Yes 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 - Vaccination Dates Date of 2cond Vaccination (if applicable): 02/01/21 - Review of Systems Constitutional: No Fever, No Chills Eyes: No Symptoms Ears, Nose, & Throat: No Symptoms Respiratory: No Cough, No Dyspnea Cardiac: No Chest Pain, No Edema, No Syncope Abdominal/Gastrointestinal: No Abdominal Pain, No Nausea, No Vomiting, No Diarrhea Genitourinary Symptoms: No Dysuria Musculoskeletal: No Back Pain, No Neck Pain Skin: No Rash Neurological: No Dizziness, No Focal Weakness, No Sensory Changes Psychological: No Symptoms Endocrine: No Symptoms All Other Systems: Reviewed and Negative - Past Medical History Pertinent Past Medical History: Yes Neurological History: No Pertinent History ENT History: Cataracts Cardiac History: Coronary Artery Disease, High Cholesterol, Hypertension Respiratory History: COPD, Emphysema, Pneumonia Endocrine Medical History: No Pertinent History Musculoskeletal History: Arthritis, Osteoarthritis GI Medical History: GERD, Polyps History: No Pertinent History Psycho-Social History: No Pertinent History Female Reproductive Disorders: No Pertinent History Other Medical History: bleeding ulcer - Past Surgical History Past Surgical History: Yes Neuro Surgical History: No Pertinent History Cardiac: CABG Respiratory: No Pertinent History Gastrointestinal: Appendectomy, Cholecystectomy Genitourinary: No Pertinent History Musculoskeletal: Orthopedic Surgery Female Surgical History: Hysterectomy, Tubal Ligation Other Surgical History: 2 screws in lower back,carpal tunnel release to right wrist. ankle sx. bleeding ulcer repair - Social History Smoking Status: Former smoker Exposure to second hand smoke: No Drug Use: none Patient Lives Alone: Yes - Nursing Vital Signs Nursing Vital Signs: Initial Vital Signs Temperature 99.1 F 10/24/22 11:29 Pulse Rate 65 10/24/22 11:29 Respiratory Rate 16 10/24/22 11:29 Blood Pressure 118/68 10/24/22 11:29 O2 Sat by Pulse Oximetry 97 10/24/22 11:29 Pain Scale Pain Intensity 7 - [place] Coma Score Best Eye Response ([place]): (4) open spontaneously Best Verbal Response ([place]): (5) oriented Best Motor Response ([place]): (6) obeys commands [place] Total: 15 - Physical Exam General Appearance: mild distress, alert Head Injury: contusions (Left occipital area tenderness small hematoma) Eye Exam: PERRL/EOMI ENT Exam: airway nml Neck Exam: normal inspection, No tenderness Respiratory/Chest Exam: normal breath sounds, No chest tenderness, No respiratory distress Cardiovascular Exam: normal heart sounds, regular rate/rhythm Gastrointestinal Exam: soft, No tenderness, No distention, No guarding, No ecchymosis Back Exam: normal inspection, No vertebral tenderness Extremity Exam: other (There is tenderness to the left hip area), No deformities Neurologic Exam: alert, oriented x 3, cooperative, sensation nml, No motor deficits Skin Exam: normal color, warm, dry SpO2 Interpretation: normal SpO2: 96 O2 Delivery: Room Air - Course Nursing assessment & vital signs reviewed: Yes - Radiology Exams Left Hip X-ray Interpretation: Reviewed by me, No Fracture - CT Exams Head CT Interpretation: Negative Ordered Tests: Active Orders 24 hr Category Date Time Status HEAD WITHOUT CONTRAST [CT] Stat Exams 10/24/22 11:30 Completed HIP UNI (2V) INCL PEL IF DONE Stat Exams 10/24/22 11:31 Completed CBC W DIFF Stat Lab 10/24/22 11:33 Completed CMP Stat Lab 10/24/22 11:33 Completed UA W/RFX CULTURE Stat Lab 10/24/22 Ordered Medication Summary Generic Name Dose Route Start Last Admin Trade Name Freq PRN Reason Stop Dose Admin Sodium Chloride 1,000 mls @ 100 mls/hr 10/24/22 11:45 10/24/22 11:41 Sodium Chloride 0.9% 1000 Ml IV 11/23/22 11:44 100 mls/hr .Q10H MICKY Administration Discontinued Medications Generic Name Dose Route Start Last Admin Trade Name Freq PRN Reason Stop Dose Admin Fentanyl Citrate 50 mcg 10/24/22 11:33 10/24/22 11:42 Fentanyl Citrate 100 Mcg/2 Ml* Vial IV 10/24/22 11:34 50 mcg STAT ONE Administration Fentanyl Citrate Confirm 10/24/22 11:38 Fentanyl Citrate 100 Mcg/2 Ml* Vial Administered 10/24/22 11:39 Dose 100 mcg .ROUTE .STK-MED ONE Ondansetron HCl 4 mg 10/24/22 11:33 10/24/22 11:42 Ondansetron Hcl 4 Mg/2 Ml Vial IV 10/24/22 11:34 4 mg STAT ONE Administration Ondansetron HCl Confirm 10/24/22 11:38 Ondansetron Hcl 4 Mg/2 Ml Vial Administered 10/24/22 11:39 Dose 4 mg .ROUTE .STK-MED ONE Lab/Rad Data: Laboratory Result Diagrams 10/24/22 11:33 10/24/22 11:33 Laboratory Results 10/24/22 10/24/22 Range/Units 11:33 11:33 WBC 15.2 H (4.0-10.5) x10^3/uL RBC 3.87 L (4.1-5.4) x10^6/uL Hgb 12.6 (12.0-16.0) g/dL Hct 38.7 (35-47) % MCV 100.0 (78-100) fL MCH 32.6 H (26-32) pg MCHC 32.6 (32-36) g/dL RDW 14.3 H (11.5-14.0) % Plt Count 307 (150-450) x10^3/uL MPV 8.4 (7.5-11.0) fL Gran % 69.7 H (36.0-66.0) % Immature Gran % (Auto) 0.6 H (0.00-0.4) % Nucleat RBC Rel Count 0.0 (0.00-0.1) % Eos # (Auto) 0.05 (0-0.5) x10^3/uL Immature Gran # (Auto) 0.09 H (0.00-0.03) x10^3u/L Absolute Lymphs (auto) 2.83 (1.0-4.6) x10^3/uL Absolute Monos (auto) 1.62 H (0.0-1.3) x10^3/uL Absolute Nucleated RBC 0.00 (0.00-0.01) x10^3u/L Lymphocytes % 18.6 L (24.0-44.0) % Monocytes % 10.7 (0.0-12.0) % Eosinophils % 0.3 (0.00-5.0) % Basophils % 0.1 (0.0-0.4) % Absolute Granulocytes 10.58 H (1.4-6.9) x10^3/uL Basophils # 0.02 (0-0.4) x10^3/uL Sodium 133 L (137-145) mmol/L Potassium 3.8 (3.5-5.1) mmol/L Chloride 102 (98-107) mmol/L Carbon Dioxide 24 (22-30) mmol/L Anion Gap 11.0 (5-15) MEQ/L BUN 25 H (7-17) mg/dL Creatinine 0.89 (0.52-1.04) mg/dL Estimated GFR > 60.0 ML/MIN Glucose 110 H (74-106) mg/dL Calcium 9.1 (8.4-10.2) mg/dL Total Bilirubin 0.60 (0.2-1.3) mg/dL AST 29 (14-36) U/L ALT 19 (0-35) U/L Alkaline Phosphatase 84 (38-126) U/L Serum Total Protein 6.5 (6.3-8.2) g/dL Albumin 3.6 (3.5-5.0) g/dL - Progress Progress: improved, pain not gone completely - Departure Departure Disposition: Home Clinical Impression: Scalp contusion, Contusion of left hip Condition: Stable Critical Care Time: No Referrals: MARIUSZ LINARES MD [Primary Care Provider] - Follow up/PCP as directed Instructions: Contusion (DC) Prescriptions: Hydrocodone/Acetaminophen [Hydrocodone-Acetamin 5-325 mg] 1 tab PO Q6HPRN PRN 3 Days #12 tablet MDD 4 PRN Reason: Pain
[2022-10-24 12:47] VITALS: BP 119/62; O2SAT 94
[2022-10-24 15:10] LABS: Slide Review 1 YES
== END 2022-10-24 12:58 | disposition home or self-care (01) ==
LOC: ED 11:08
DX: S00.03XA Contusion of scalp, initial encounter (principal); S70.02XA Contusion of left hip, initial encounter; W19.XXXA Unspecified fall, initial encounter; E78.5 Hyperlipidemia, unspecified; I10 Essential (primary) hypertension; Z79.891 Long term (current) use of opiate analgesic; Z79.899 Other long term (current) drug therapy
CPT/HCPCS: 36000; 36415; 70450; 73502; 80053; 85025; 96374; 96375; 99284; J2405; J3010

== ENCOUNTER 2022-10-30 11:32 | Emergency (ER) | payer MEDICARE, BC ==
[2022-10-30] MEDS ORDERED: NORCO 5/325 MG PO ONE (12:04)
[2022-10-30] MEDS ORDERED: NORCO 5/325 MG ONE (12:13)
--- NOTE | 2022-10-30 12:37 | XRAY ---
Indication: Pain following fall one week ago. Multiple contiguous axial images obtained through the left hip without contrast. Sagittal and coronal reformatted images obtained. Comparison: November 05, 2021 Osseous structures remain demineralized. Superior lateral acetabulum demonstrates stable tiny heterotopic ossification presumed degenerative. Stable tiny greater trochanter spurring. No acute fracture, dislocation, or suspicious bony lesions. Surrounding soft tissues again demonstrate scattered vascular calcifications and sigmoid diverticulosis. Impression: Continued negative acute fracture/dislocation. Stable osteopenia, degenerative changes, arteriosclerotic disease, and sigmoid diverticulosis.
[2022-10-30 13:11] VITALS: BP 108/64; PULSE 60; O2SAT 98
--- NOTE | 2022-10-30 13:15 | ERPHSYRPT ---
- History of Present Illness Time Seen by Provider: 10/30/22 11:50 Source: patient Exam Limitations: no limitations Patient Subjective Stated Complaint: C/O left hip/leg pain following a fall a few days ago. Patient states the pain is constant but changes in intensity. When asked to describe the pain she states "it always hurts but at times it gets very sharp." Triage Nursing Assessment: Patient brought back to ED in a W/C. She is alert and oriented. NO SOB. Scattered various bruising noted to BUE. No bruising or skin alterations noted to left hip or upper leg where pain is indicated. Patient was able to transfer self from w/c to bed. Physician History: Patient 77-year-old female presents emergency department for evaluation of left hip pain. Patient states her pain started on 22 October 2 days after a fall. Pawel cordero presented to our ED in October 24 for evaluation. Patient had a left hip x-ray that was read as negative. Patient states he is here today as her pain is constant. No interval falls. Pain described as a sharp sensation that tends to shoot down to her leg. Pain worse with palpation to the left lateral hip. Pain improved with rest. No back pain. No change in bowel bladder function. No f ever. No saddle anesthesia. Patient denies a history of hip pain. Patient's pain is ongoing since 22 October. No numbness tingling or weakness. Symptoms are mild to moderate in intensity. Patient voices no other complaints or concerns at this time. Portions of this note were created with voice recognition technology. There may be grammatical, spelling, punctuation or sound alike errors Timing/Duration: day(s) (9 days ago) Occured at: home Context: fall Quality: aching Hip Pain Location: hip (L) Severity of Pain-Max: moderate Severity of Pain-Current: mild Symptoms prior to fall: none Associated Symptoms: denies symptoms Allergies/Adverse Reactions: iodine Allergy (Severe, Verified 10/30/22 11:44) Hives Home Medications: Carvedilol [Coreg] 25 mg PO BID 08/06/20 [History] Losartan Potassium [Cozaar] 25 mg PO BID 08/06/20 [History] Potassium Chloride [Klor-Con] 20 meq PO DAILY 08/06/20 [History] Multivitamin [Multiple Vitamins] 1 each PO DAILY 05/23/21 [History] Albuterol Sulfate [Proair Respiclick] 2 puff IH QID PRN 01/08/22 [History] Atorvastatin Calcium 80 mg PO HS 01/08/22 [History] Melatonin 3 mg PO HS PRN 01/08/22 [History] Polyethylene Glycol 3350 17 gm [Miralax Powder 17GM PACKET] 17 gm PO DAILY PRN PRN 01/08/22 [History] Albuterol/Ipratropium 3ml Neb* [DUONEB 0.5-3 MG/3 ml Neb] 1 neb IH Q4HPRN PRN 05/24/22 [History] Amlodipine Besylate [Norvasc] 5 mg PO BID 05/24/22 [History] Fluticasone/Salmeterol 115/ [Advair Hfa 115/ Common canister*] 1 puff IH BIDRT 05/24/22 [History] Hx Tetanus, Diphtheria Vaccination/Date Given: Yes Hx Influenza Vaccination/Date Given: Yes Hx Pneumococcal Vaccination/Date Given: Yes Immunizations Up to Date: Yes Travel Risk - International Travel Have you traveled outside of the country in past 3 weeks: No - Coronavirus Screening Are you exhibiting any of the following symptoms?: No Close contact with a COVID-19 positive Pt in past 14-21 Days: No - Vaccine Status Have you recieved a Covid-19 vaccination: Yes Career Law Clerk: Moderna - Vaccination Dates Date of 2cond Vaccination (if applicable): 02/01/21 - Review of Systems Constitutional: No Symptoms, No Fever, No Chills Eyes: No Symptoms Ears, Nose, & Throat: No Symptoms Respiratory: No Symptoms, No Cough, No Dyspnea Cardiac: No Symptoms, No Chest Pain, No Edema, No Syncope Abdominal/Gastrointestinal: No Symptoms, No Abdominal Pain, No Nausea, No Vomiting, No Diarrhea Genitourinary Symptoms: No Symptoms, No Dysuria Musculoskeletal: No Symptoms, No Back Pain, No Neck Pain Skin: No Symptoms, No Rash Neurological: No Symptoms, No Dizziness, No Focal Weakness, No Sensory Changes Psychological: No Symptoms Endocrine: No Symptoms Hematologic/Lymphatic: No Symptoms Immunological/Allergic: No Symptoms All Other Systems: Reviewed and Negative - Past Medical History Pertinent Past Medical History: Yes Neurological History: No Pertinent History ENT History: Cataracts Cardiac History: Coronary Artery Disease, High Cholesterol, Hypertension Respiratory History: COPD, Emphysema, Pneumonia Endocrine Medical History: No Pertinent History Musculoskeletal History: Arthritis, Osteoarthritis GI Medical History: GERD, Polyps History: No Pertinent History Psycho-Social History: No Pertinent History Female Reproductive Disorders: No Pertinent History Other Medical History: bleeding ulcer, insomnia - Past Surgical History Past Surgical History: Yes Neuro Surgical History: No Pertinent History Cardiac: CABG Respiratory: No Pertinent History Gastrointestinal: Appendectomy, Cholecystectomy, Other Genitourinary: No Pertinent History Musculoskeletal: Orthopedic Surgery Female Surgical History: Hysterectomy, Tubal Ligation Other Surgical History: 2 screws in lower back,carpal tunnel release to right wrist, ankle, bleeding ulcer repair - Social History Smoking Status: Former smoker Exposure to second hand smoke: No Drug Use: none Patient Lives Alone: Yes - Nursing Vital Signs Nursing Vital Signs: Initial Vital Signs Temperature 98.5 F 10/30/22 11:45 Pulse Rate 67 10/30/22 11:45 Respiratory Rate 17 10/30/22 11:45 Blood Pressure 117/63 10/30/22 11:45 O2 Sat by Pulse Oximetry 97 10/30/22 11:45 Pain Scale Pain Intensity 7 - Physical Exam General Appearance: no apparent distress, alert Eye Exam: PERRL/EOMI, eyes nml inspection Ears, Nose, Throat Exam: normal ENT inspection, TMs normal, pharynx normal, moist mucous membranes Neck Exam: normal inspection, non-tender, supple, full range of motion Respiratory Exam: normal breath sounds, lungs clear, airway intact, No chest tenderness, No respiratory distress Cardiovascular Exam: regular rate/rhythm, normal heart sounds, normal peripheral pulses, No edema Gastrointestinal Exam: soft, normal bowel sounds, No tenderness, No distention, No guarding Back Exam: normal inspection, normal range of motion, No vertebral tenderness Extremity Exam: normal inspection, normal range of motion, other (Left lower extremity neurovascular tact distally. Compartments are soft. Cap refill less than 2 seconds. There is tenderness to palpation on the lateral aspect of the left hip. Patient states the pain tends to radiate down to lower leg. Colleen negative.), No parasthesia, No colleen's sign, No pedal edema, No swelling Peripheral Pulses: dorsalis-pedis (R): 2+, dorsalis-pedis (L): 2+ Neurologic Exam: alert, oriented x 3, cooperative, wood carver II-XII nml as tested, sensation nml, No motor deficits Skin Exam: normal color, warm, dry, No rash SpO2 Interpretation: normal SpO2: 98 O2 Delivery: Room Air - Course Nursing assessment & vital signs reviewed: Yes - CT Exams Lower Extremity CT Interpretation: Tele-radiologist Report (No fractures or dislocations. Osteopenia observed. Osseous structures are demineralized. Atherosclerotic disease observed. Sigmoid diverticulosis.) Ordered Tests: Active Orders 24 hr Category Date Time Status LOWER EXTREMITY WO CONTRAST [CT] Stat Exams 10/30/22 12:02 Completed Medication Summary Discontinued Medications Generic Name Dose Route Start Last Admin Trade Name Jacqueline PRN Reason Stop Dose Admin Hydrocodone Bitart/Acetaminophen 1 tab 10/30/22 12:04 10/30/22 12:14 Hydrocodone/Apap 5/325 1 Tab Tablet PO 10/30/22 12:05 1 tab STAT ONE Administration Hydrocodone Bitart/Acetaminophen Confirm 10/30/22 12:13 Hydrocodone/Apap 5/325 1 Tab Tablet Administered 10/30/22 12:14 Dose 1 tab .ROUTE .[facility]-MED ONE - Progress Progress: improved Progress Note: 10/30/22 13:23 Patient 77-year-old female presents to our ED with ongoing left hip pain that started on 22 October 2 days after a fall. Patient's pain was acute in onset. Pain was moderate in intensity. Patient presented to our ED on October 24 with the same complaint. At that time she had a negative hip x-ray. No obvious contributing comorbidities observed. Left hip CT ordered. Left hip CT negative for fracture dislocations. Chronic degenerative changes observed. Radiology report reviewed. This information was used for medical decision-making. No indication for hospitalization. Patient given Frederica for pain control. I reviewed previous ED records. Patient was seen by Dr. Camargo in October 24, 2022. Patient referred to orthopedic clinic for further evaluation and treatment. Patient agrees to follow-up with orthopedic clinic as discussed. Level of EM service provided was moderate. Patient had a single problem with moderate complexity. Data reviewed was moderate in amount and complexity. Risks of complications/morbidity/mortality is moderate. No critical care time. Patient provided the full history for HPI. She served as a sole independent historian. Patient agrees to follow-up with orthopedic clinic tomorrow as scheduled for reevaluation. Pain significantly improved after Frederica oral pain medication administered. Portions of this note were created with voice recognition technology. There may be grammatical, spelling, punctuation or sound alike errors 10/30/22 13:33 Counseled pt/family regarding: diagnosis, need for follow-up, rad results - Departure Departure Disposition: Home Clinical Impression: Hip pain, left Condition: Stable Critical Care Time: No Referrals: MARIUSZ LINARES MD [Primary Care Provider] - Follow up/PCP as directed Additional Instructions: Discharge/Care Plan LEXUS DHILLON was seen on 10/30/22 in the Emergency Room. The patient was counseled regarding Diagnosis,Lab results, Imaging studies, need for follow up and when to return to the Emergency Room. Prescriptions given: Discharge Note I have spoken with the patient and/or caregivers. I have explained the patient's condition, diagnosis and treatment plan based on the information available to me at this time. I have answered the patient's and/or caregiver's questions and addressed any concerns. The patient and/or caregivers have as good understanding of the patient's diagnosis, condition and treatment plan as can be expected at this point. The vital signs have been stable. The patient's condition is stable and appropriate for discharge from the emergency department. The patient will pursue further outpatient evaluation with the primary care physician or other designated or consulting physician as outlined in the discharge instructions. The patient and/or caregivers are agreeable to this plan of care and follow-up instructions have been explained in detail. The patient and/or caregivers have received these instruction. The patient/and or caregivers are aware that any significant change in condition or worsening of symptoms should prompt an immediate return to this or the closest emergency department or call 911.
== END 2022-10-30 13:58 | disposition home or self-care (01) ==
LOC: ED 11:32
DX: M25.552 Pain in left hip (principal); Z79.899 Other long term (current) drug therapy; E78.5 Hyperlipidemia, unspecified; I10 Essential (primary) hypertension
CPT/HCPCS: 73700; 99283; A9270-GY

== ENCOUNTER 2022-11-23 13:31 | Emergency (ER) | payer MEDICARE, BC ==
--- NOTE | 2022-11-23 13:41 | ERPHSYRPT ---
- History of Present Illness Time Seen by Provider: 11/23/22 13:41 Source: patient, family Exam Limitations: no limitations Physician History: This is a 77-year-old white female patient of Dr. Linares and presents to the emergency department with 4-day history of weakness, fever, cough, shortness of breath, vomiting, diarrhea and body aches. She states that intermittently she has had greenyellow sputum. She denies chest pain. She denies abdominal pain. Patient has multiple medical problems including hypertension, hyperlipidemia, COPD, coronary arteries disease/CABG, history of gastric ulcer and has a history of frequent pneumonias. Patient has not had any hemoptysis, hematemesis, hematuria or rectal bleeding. She has no known exposures to individuals with similar symptoms. Timing/Duration: day(s) (4) Severity: mild (To moderate) Associated Symptoms: nausea, vomiting, shortness of breath, cough, fever, loss of appetite, weakness, No abdominal pain, No chest pain Allergies/Adverse Reactions: iodine Allergy (Severe, Verified 11/23/22 13:34) [facility] Medications: Carvedilol [Coreg] 25 mg PO BID 08/06/20 [History] Losartan Potassium [Cozaar] 25 mg PO BID 08/06/20 [History] Potassium Chloride [Klor-Con] 20 meq PO DAILY 08/06/20 [History] Multivitamin [Multiple Vitamins] 1 each PO DAILY 05/23/21 [History] Albuterol Sulfate [Proair Respiclick] 2 puff IH QID PRN 01/08/22 [History] Atorvastatin Calcium 80 mg PO HS 01/08/22 [History] Melatonin 3 mg PO HS PRN 01/08/22 [History] Polyethylene Glycol 3350 17 gm [Miralax Powder 17GM PACKET] 17 gm PO DAILY PRN PRN 01/08/22 [History] Albuterol/Ipratropium 3ml Neb* [DUONEB 0.5-3 MG/3 ml Neb] 1 neb IH Q4HPRN PRN 05/24/22 [History] Amlodipine Besylate [Norvasc] 5 mg PO BID 05/24/22 [History] Fluticasone/Salmeterol 115/21 [Advair Hfa 115/21 Common canister*] 1 puff IH BIDRT 05/24/22 [History] Hx Tetanus, Diphtheria Vaccination/Date Given: Yes Hx Influenza Vaccination/Date Given: Yes Hx Pneumococcal Vaccination/Date Given: Yes Travel Risk - International Travel Have you traveled outside of the country in past 3 weeks: No - Coronavirus Screening Are you exhibiting any of the following symptoms?: Yes Symptoms: Fever, Cough: New Onset, Shortness of Breath, Vomiting/Diarrhea, Headaches/Body Aches/Fatigue Close contact with a COVID-19 positive Pt in past 14-21 Days: No - Vaccine Status Have you recieved a Covid-19 vaccination: Yes Motor Vehicle Dispatcher: Moderna - Vaccination Dates Date of 2cond Vaccination (if applicable): 02/01/21 - Review of Systems Constitutional: Fever, Weakness Eyes: No Symptoms Ears, Nose, & Throat: No Symptoms Respiratory: Cough, Dyspnea Cardiac: No Symptoms Abdominal/Gastrointestinal: Nausea, Vomiting, Diarrhea, Appetite Changes, No Abdominal Pain, No Constipation Genitourinary Symptoms: No Symptoms Musculoskeletal: Arthralgias, Myalgias Skin: No Symptoms Neurological: No Symptoms Psychological: No Symptoms Endocrine: No Symptoms Hematologic/Lymphatic: No Symptoms Immunological/Allergic: No Symptoms All Other Systems: Reviewed and Negative - Past Medical History Pertinent Past Medical History: Yes Neurological History: No Pertinent History ENT History: Cataracts Cardiac History: Coronary Artery Disease, High Cholesterol, Hypertension Respiratory History: COPD, Emphysema, Pneumonia Endocrine Medical History: No Pertinent History Musculoskeletal History: Arthritis, Osteoarthritis GI Medical History: GERD, Polyps History: No Pertinent History Psycho-Social History: No Pertinent History Female Reproductive Disorders: No Pertinent History Other Medical History: bleeding ulcer, insomnia - Past Surgical History Past Surgical History: Yes Neuro Surgical History: No Pertinent History Cardiac: CABG Respiratory: No Pertinent History Gastrointestinal: Appendectomy, Cholecystectomy, Other Genitourinary: No Pertinent History Musculoskeletal: Orthopedic Surgery Female Surgical History: Hysterectomy, Tubal Ligation Other Surgical History: 2 screws in lower back,carpal tunnel release to right wrist, ankle, bleeding ulcer repair - Social History Smoking Status: Former smoker Exposure to second hand smoke: No Drug Use: none Patient Lives Alone: Yes - Nursing Vital Signs Nursing Vital Signs: Initial Vital Signs Temperature 98.1 F 11/23/22 13:34 Pulse Rate 85 11/23/22 13:34 Respiratory Rate 20 11/23/22 13:34 Blood Pressure 143/118 11/23/22 13:34 O2 Sat by Pulse Oximetry 95 02/02/23 13:34 Pain Scale Pain Intensity 0 - Physical Exam General Appearance: no apparent distress, alert, anxiety, thin Eye Exam: PERRL/EOMI, eyes nml inspection Ears, Nose, Throat Exam: dry mucous membranes Neck Exam: normal inspection, non-tender, supple, full range of motion Respiratory Exam: normal breath sounds, lungs clear, airway intact, No chest tenderness, No respiratory distress Cardiovascular Exam: regular rate/rhythm, normal heart sounds, normal peripheral pulses Gastrointestinal/Abdomen Exam: soft, normal bowel sounds, No tenderness Pelvic Exam: not done Rectal Exam: not done Back Exam: normal inspection, normal range of motion, No CVA tenderness, No vertebral tenderness Extremity Exam: normal inspection, normal range of motion, pelvis stable Neurologic Exam: alert, oriented x 3, cooperative, corner block cutter II-XII nml as tested, normal mood/affect, nml cerebellar function, nml station & gait, sensation nml Skin Exam: warm, dry, pale Lymphatic Exam: No adenopathy SpO2 Interpretation: normal O2 Delivery: Room Air - Course Nursing assessment & vital signs reviewed: Yes EKG Interpreted by Me: RATE (73), Sinus Rhythm, NORMAL AXIS, NORMAL INTERVALS, NORMAL QRS, NORMAL ST-T, Non-specific ST Changes, Other (No acute ischemic changes on today's twelve-lead EKG. This EKG was interpreted by me.) Ordered Tests: Active Orders 24 hr Category Date Time Status IV Insertion STAT Care 11/23/22 14:00 Active CHEST 1 VIEW (PORTABLE) Stat Exams 11/23/22 14:01 Completed AMYLASE Stat Lab 11/23/22 14:20 Completed BLOOD CULTURE Stat Lab 11/23/22 14:05 Received CBC W DIFF Stat Lab 11/23/22 14:20 Completed CMP Stat Lab 11/23/22 14:20 Completed LIPASE Stat Lab 11/23/22 14:20 Completed Lactic Acid Stat Lab 11/23/22 14:18 Completed [place] Screen Stat Lab 11/23/22 14:20 Completed TROPONIN Q4H Lab 11/23/22 14:20 Completed TROPONIN Q4H Lab 11/23/22 18:45 Ordered TROPONIN Q4H Lab 11/23/22 22:45 Ordered UA W/RFX UR CULTURE Stat Lab 11/23/22 Completed Medication Summary Discontinued Medications Generic Name Dose Route Start Last Admin Trade Name Freq PRN Reason Stop Dose Admin Sodium Chloride 1,000 mls @ 999 mls/hr 11/23/22 14:00 11/23/22 15:27 Sodium Chloride 0.9% 1000 Ml IV 11/23/22 15:00 0 mls/hr .Q1H1M STA Infusion Sodium Chloride Confirm 11/23/22 14:12 Sodium Chloride 0.9% 1000 Ml Administered 11/23/22 14:13 Dose 1,000 mls @ ud .ROUTE .STK-MED ONE Ondansetron HCl 4 mg 11/23/22 14:00 11/23/22 14:13 Ondansetron Hcl 4 Mg/2 Ml Vial IV 11/23/22 14:01 4 mg STAT ONE Administration Ondansetron HCl Confirm 11/23/22 14:13 Ondansetron Hcl 4 Mg/2 Ml Vial Administered 11/23/22 14:14 Dose 4 mg .ROUTE .STK-MED ONE Lab/Rad Data: Laboratory Result Diagrams 11/23/22 14:20 11/23/22 14:20 Laboratory Results 11/23/22 11/23/22 11/23/22 Range/Units Unknown 14:20 14:20 WBC (4.0-10.5) x10^3/uL RBC (4.1-5.4) x10^6/uL Hgb (12.0-16.0) g/dL Hct (35-47) % MCV (78-100) fL MCH (26-32) pg MCHC (32-36) g/dL RDW (11.5-14.0) % Plt Count (150-450) x10^3/uL MPV (7.5-11.0) fL Gran % (36.0-66.0) % Immature Gran % (Auto) (0.00-0.4) % Nucleat RBC Rel Count (0.00-0.1) % Eos # (Auto) (0-0.5) x10^3/uL Immature Gran # (Auto) (0.00-0.03) x10^3u/L Absolute Lymphs (auto) (1.0-4.6) x10^3/uL Absolute Monos (auto) (0.0-1.3) x10^3/uL Absolute Nucleated RBC (0.00-0.01) x10^3u/L Lymphocytes % (24.0-44.0) % Monocytes % (0.0-12.0) % Eosinophils % (0.00-5.0) % Basophils % (0.0-0.4) % Absolute Granulocytes (1.4-6.9) x10^3/uL Basophils # (0-0.4) x10^3/uL Sodium (137-145) mmol/L Potassium (3.5-5.1) mmol/L Chloride (98-107) mmol/L Carbon Dioxide (22-30) mmol/L Anion Gap (5-15) MEQ/L BUN (7-17) mg/dL Creatinine (0.52-1.04) mg/dL Estimated GFR ML/MIN Glucose (74-106) mg/dL Lactic Acid (0.4-2.0) Calcium (8.4-10.2) mg/dL Total Bilirubin (0.2-1.3) mg/dL AST (14-36) U/L ALT (0-35) U/L Alkaline Phosphatase (38-126) U/L Troponin I < 0.012 (0.000-0.034) ng/mL Serum Total Protein (6.3-8.2) g/dL Albumin (3.5-5.0) g/dL Amylase (30-110) U/L Lipase (23-300) U/L Urine Color Yellow (Yellow) Urine Appearance Clear (Clear) Urine pH 5.5 (4.6-8.0) Ur Specific [place] 1.025 (1.005-1.030) Urine Protein Trace A (Negative) Urine Glucose (UA) Negative (Negative) mg/dL Urine Ketones Trace A (Negative) Urine Blood Negative (Negative) Urine Nitrite Negative (Negative) Urine Bilirubin Negative (Negative) Urine Urobilinogen 1.0 A (0.2) mg/dL Ur Leukocyte Esterase Negative (Negative) U Hyaline Cast (Auto) 6-10 A (0-2) /LPF Urine Microscopic RBC 0-2 (0-5) /HPF Urine Microscopic WBC 3-5 (0-5) /HPF Ur Epithelial Cells Rare (None Seen) /HPF Urine Bacteria Rare A (None Seen) /HPF Urine Culture Reflexed NO (NO) Monoscreen (Negative) Influenza Type A Ag NEGATIVE (NEGATIVE) Influenza Type B Ag NEGATIVE (NEGATIVE) RSV (PCR) NEGATIVE (Negative) SARS-CoV-2 (PCR) NEGATIVE (NEGATIVE) 11/23/22 11/23/22 11/23/22 Range/Units 14:20 14:20 14:20 WBC 14.3 H (4.0-10.5) x10^3/uL RBC 3.65 L (4.1-5.4) x10^6/uL Hgb 12.1 (12.0-16.0) g/dL Hct 37.4 (35-47) % MCV 102.5 H (78-100) fL MCH 33.2 H (26-32) pg MCHC 32.4 (32-36) g/dL RDW 15.6 H (11.5-14.0) % Plt Count 302 (150-450) x10^3/uL MPV 8.4 (7.5-11.0) fL Gran % 81.7 H (36.0-66.0) % Immature Gran % (Auto) 0.5 H (0.00-0.4) % Nucleat RBC Rel Count 0.0 (0.00-0.1) % Eos # (Auto) 0.08 (0-0.5) x10^3/uL Immature Gran # (Auto) 0.07 H (0.00-0.03) x10^3u/L Absolute Lymphs (auto) 1.35 (1.0-4.6) x10^3/uL Absolute Monos (auto) 1.04 (0.0-1.3) x10^3/uL Absolute Nucleated RBC 0.00 (0.00-0.01) x10^3u/L Lymphocytes % 9.4 L (24.0-44.0) % Monocytes % 7.3 (0.0-12.0) % Eosinophils % 0.6 (0.00-5.0) % Basophils % 0.5 (0.0-0.4) % Absolute Granulocytes 11.71 H (1.4-6.9) x10^3/uL Basophils # 0.07 (0-0.4) x10^3/uL Sodium 136 L (137-145) mmol/L Potassium 3.9 (3.5-5.1) mmol/L Chloride 101 (98-107) mmol/L Carbon Dioxide 25 (22-30) mmol/L Anion Gap 13.3 (5-15) MEQ/L BUN 21 H (7-17) mg/dL Creatinine 0.71 (0.52-1.04) mg/dL Estimated GFR > 60.0 ML/MIN Glucose 121 H (74-106) mg/dL Lactic Acid (0.4-2.0) Calcium 9.6 (8.4-10.2) mg/dL Total Bilirubin 0.60 (0.2-1.3) mg/dL AST 29 (14-36) U/L ALT 24 (0-35) U/L Alkaline Phosphatase 109 (38-126) U/L Troponin I (0.000-0.034) ng/mL Serum Total Protein 7.8 (6.3-8.2) g/dL Albumin 4.1 (3.5-5.0) g/dL Amylase 53 (30-110) U/L Lipase 33 (23-300) U/L Urine Color (Yellow) Urine Appearance (Clear) Urine pH (4.6-8.0) Ur Specific [place] (1.005-1.030) Urine Protein (Negative) Urine Glucose (UA) (Negative) mg/dL Urine Ketones (Negative) Urine Blood (Negative) Urine Nitrite (Negative) Urine Bilirubin (Negative) Urine Urobilinogen (0.2) mg/dL Ur Leukocyte Esterase (Negative) U Hyaline Cast (Auto) (0-2) /LPF Urine Microscopic RBC (0-5) /HPF Urine Microscopic WBC (0-5) /HPF Ur Epithelial Cells (None Seen) /HPF Urine Bacteria (None Seen) /HPF Urine Culture Reflexed (NO) Monoscreen NEGATIVE (Negative) Influenza Type A Ag (NEGATIVE) Influenza Type B Ag (NEGATIVE) RSV (PCR) (Negative) SARS-CoV-2 (PCR) (NEGATIVE) 11/23/22 Range/Units 14:18 WBC (4.0-10.5) x10^3/uL RBC (4.1-5.4) x10^6/uL Hgb (12.0-16.0) g/dL Hct (35-47) % MCV (78-100) fL MCH (26-32) pg MCHC (32-36) g/dL RDW (11.5-14.0) % Plt Count (150-450) x10^3/uL MPV (7.5-11.0) fL Gran % (36.0-66.0) % Immature Gran % (Auto) (0.00-0.4) % Nucleat RBC Rel Count (0.00-0.1) % Eos # (Auto) (0-0.5) x10^3/uL Immature Gran # (Auto) (0.00-0.03) x10^3u/L Absolute Lymphs (auto) (1.0-4.6) x10^3/uL Absolute Monos (auto) (0.0-1.3) x10^3/uL Absolute Nucleated RBC (0.00-0.01) x10^3u/L Lymphocytes % (24.0-44.0) % Monocytes % (0.0-12.0) % Eosinophils % (0.00-5.0) % Basophils % (0.0-0.4) % Absolute Granulocytes (1.4-6.9) x10^3/uL Basophils # (0-0.4) x10^3/uL Sodium (137-145) mmol/L Potassium (3.5-5.1) mmol/L Chloride (98-107) mmol/L Carbon Dioxide (22-30) mmol/L Anion Gap (5-15) MEQ/L BUN (7-17) mg/dL Creatinine (0.52-1.04) mg/dL Estimated GFR ML/MIN Glucose (74-106) mg/dL Lactic Acid 1.2 (0.4-2.0) Calcium (8.4-10.2) mg/dL Total Bilirubin (0.2-1.3) mg/dL AST (14-36) U/L ALT (0-35) U/L Alkaline Phosphatase (38-126) U/L Troponin I (0.000-0.034) ng/mL Serum Total Protein (6.3-8.2) g/dL Albumin (3.5-5.0) g/dL Amylase (30-110) U/L Lipase (23-300) U/L Urine Color (Yellow) Urine Appearance (Clear) Urine pH (4.6-8.0) Ur Specific [place] (1.005-1.030) Urine Protein (Negative) Urine Glucose (UA) (Negative) mg/dL Urine Ketones (Negative) Urine Blood (Negative) Urine Nitrite (Negative) Urine Bilirubin (Negative) Urine Urobilinogen (0.2) mg/dL Ur Leukocyte Esterase (Negative) U Hyaline Cast (Auto) (0-2) /LPF Urine Microscopic RBC (0-5) /HPF Urine Microscopic WBC (0-5) /HPF Ur Epithelial Cells (None Seen) /HPF Urine Bacteria (None Seen) /HPF Urine Culture Reflexed (NO) Monoscreen (Negative) Influenza Type A Ag (NEGATIVE) Influenza Type B Ag (NEGATIVE) RSV (PCR) (Negative) SARS-CoV-2 (PCR) (NEGATIVE) - Progress Progress: improved Progress Note: 11/23/22 16:07 Chest x-ray report was reviewed by me and I am reporting this now. The radiologist interpreted the x-ray. There is minimal residual left base airspace disease which is improved over the chest x-ray that was performed on 10/16/2022. There is evidence of COPD changes and diffuse fibrosis and sc arring. There are no new acute cardiopulmonary abnormalities Counseled pt/family regarding: lab results, diagnosis, rad results - Departure Departure Disposition: Home Clinical Impression: Leukocytosis Condition: Stable Critical Care Time: No Referrals: MARIUSZ LINARES MD [Primary Care Provider] - Follow up/PCP as directed Additional Instructions: Drink plenty of fluids. Take your medication as prescribed. Follow-up with your primary care provider for further evaluation and management. Prescriptions: Ondansetron ODT 4 MG [Zofran Odt 4 mg] 4 mg PO Q6H PRN PRN #10 tablet PRN Reason: Vomiting Cefdinir 300 mg PO BID #14 cap
[2022-11-23] MEDS ORDERED: Zofran 4 MG/2 ML VIAL IV ONE (14:00)
[2022-11-23] MEDS ORDERED: Sodium Chloride 0.9% 1000 ML 1,000 ML IV STA (14:00)
[2022-11-23] MEDS ORDERED: Sodium Chloride 0.9% 1000 ML 1,000 ML ONE (14:12)
[2022-11-23] MEDS ORDERED: Zofran 4 MG/2 ML VIAL ONE (14:13)
[2022-11-23 14:27] LABS: Absolute Neutrophil Ct (ANC) 11.71 x10^3/uL (1.4-6.9); BASOPHIL % 0.5 % (0.0-0.4); Basophil (Absolute #) 0.07 x10^3/uL (0-0.4); Eosinophil % 0.6 % (0.00-5.0); Eosinophil (Absolute #) 0.08 x10^3/uL (0-0.5); Hematocrit 37.4 % (35-47); Hemoglobin 12.1 g/dL (12.0-16.0); IMMATURE GRAN # 0.07 x10^3u/L (0.00-0.03); IMMATURE GRAN % 0.5 % (0.00-0.4); Lymphocyte (Absolute #) 1.35 x10^3/uL (1.0-4.6); Lymphocytes % 9.4 % (24.0-44.0); Mean Cell Volume 102.5 fL (78-100); Mean Corpuscular Hemoglobin 33.2 pg (26-32); Mean Corpuscular Hgb Concent. 32.4 g/dL (32-36); Mean Platelet Volume 8.4 fL (7.5-11.0); Monocyte (Absolute #) 1.04 x10^3/uL (0.0-1.3); Monocytes % 7.3 % (0.0-12.0); Neutrophil % 81.7 % (36.0-66.0); Platelet Count 302 x10^3/uL (150-450); Red Blood Count 3.65 x10^6/uL (4.1-5.4); Red Cell Distribution Width 15.6 % (11.5-14.0); White Blood Count 14.3 x10^3/uL (4.0-10.5)
--- NOTE | 2022-11-23 14:42 | XRAY ---
Indication: Cough. Comparison: October 16, 2022 Portable chest demonstrates clearing previous left base airspace disease with minimal residual. Stable small focus subsegmental atelectasis/scarring inferior left upper lobe, COPD, and scattered fibrosis/scarring. 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 No new cardiopulmonary abnormalities.
[2022-11-23 15:04] LABS: INFLUENZA A NEGATIVE (NEGATIVE); INFLUENZA B NEGATIVE (NEGATIVE); RESPIRATORY SYNCTIAL VIRUS NEGATIVE (Negative); SARS-CoV-2 Xpert Express NEGATIVE (NEGATIVE)
[2022-11-23 15:10] LABS: ALBUMIN 4.1 g/dL (3.5-5.0); ALKALINE PHOSPHATASE 109 U/L (38-126); AMYLASE 53 U/L (30-110); ANION GAP 13.3 MEQ/L (5-15); BLOOD UREA NITROGEN 21 mg/dL (7-17); CHLORIDE 101 mmol/L (98-107); Calcium 9.6 mg/dL (8.4-10.2); Carbon Dioxide 25 mmol/L (22-30); Creatinine 1 0.71 mg/dL (0.52-1.04); EST GLOMERULAR FILTRATION RATE > 60.0 ML/MIN; Glucose 121 mg/dL (74-106); LIPASE 33 U/L (23-300); Potassium 3.9 mmol/L (3.5-5.1); SGOT/AST 29 U/L (14-36); SGPT/ALT 24 U/L (0-35); SODIUM 136 mmol/L (137-145); Total Protein 7.8 g/dL (6.3-8.2)
[2022-11-23 16:57] LABS: Appearance Clear (Clear); Bilirubin Negative (Negative); Blood Negative (Negative); Epithelial Cells Rare /HPF (None Seen); Glucose, Urine Negative (Negative); Ketones Trace (Negative); Leukocyte Esterase Negative (Negative); Nitrite Negative (Negative); Ph 5.5 (4.6-8.0); Protein,Urine Dip Trace (Negative); RBC 0-2 /HPF (0-5); Specific Gravity 1.025 (1.005-1.030)
[2022-11-23 17:00] LABS: ADD URINE CULTURE? NO (NO); Bacteria Rare /HPF (None Seen)
[2022-11-23 17:49] VITALS: BP 98/65; PULSE 88; O2SAT 98
== END 2022-11-23 17:49 | disposition home or self-care (01) ==
LOC: ED 13:31
DX: D72.829 Elevated white blood cell count, unspecified (principal); R50.9 Fever, unspecified; R53.1 Weakness; R05.1 Acute cough; R06.02 Shortness of breath; R11.2 Nausea with vomiting, unspecified; R19.7 Diarrhea, unspecified; M79.10 Myalgia, unspecified site; I10 Essential (primary) hypertension; E78.5 Hyperlipidemia, unspecified; Z79.899 Other long term (current) drug therapy
CPT/HCPCS: 0241U; 36415; 71045; 80053; 81001; 82150; 83605; 83690; 84484; 85025; 86308; 87040; 93005; 96374; 99284; J2405

== ENCOUNTER 2022-12-20 09:55 | Day surgery (SDC) | payer MEDICARE, BC ==
[2022-12-20] MEDS ORDERED: Sodium Chloride 0.9(Preservative Free) 10 ML IJ ONE (09:56)
[2022-12-20] MEDS ORDERED: Depo-Medrol 40 MG/ML IM ONE (09:56)
[2022-12-20] MEDS ORDERED: DIPRIVAN 200 MG/20 ML IV ONE (12:25)
--- NOTE | 2022-12-20 13:23 | XRAY ---
Indication: Left L4-S1 transforaminal SHABBIR. Intraoperative fluoroscopy provided for 22 seconds. 4 digital spot image submitted for interpretation demonstrates posterior needle tips projecting over the expected left L4 and L5 nerve roots. Small amount of contrast injected for needle tip placement. Correlate with intraoperative findings/report. Incidental bilateral L5-S1 posterior fusion hardware and intervertebral spacer.
[2022-12-20] MEDS ORDERED: Lactated Ringers 1,000 ML IV ONE (14:19)
--- NOTE | 2022-12-20 17:12 | XRAY ---
22 seconds of fluoroscopy was used in surgery for a left L4-S1 SHABBIR.
== END 2022-12-20 13:00 | disposition home or self-care (01) ==
LOC: SDC-PAIN 09:55
PROVIDERS: ATTEND Psychiatry & Neurology Pain Medicine
DX: M54.16 Radiculopathy, lumbar region (principal); Z79.899 Other long term (current) drug therapy
CPT/HCPCS: 64483; 64484; 72100; 77003; J1030; J2704; Q9966

== ENCOUNTER 2023-01-17 13:25 | Day surgery (SDC) | payer MEDICARE, BC ==
[2023-01-17] MEDS ORDERED: BUPIVACAINE 0.5% VIAL IJ ONE (13:26)
[2023-01-17] MEDS ORDERED: Decadron 4 MG INJ IV ONE (13:26)
[2023-01-17] MEDS ORDERED: Depo-Medrol 40 MG/ML IM ONE (13:26)
[2023-01-17] MEDS ORDERED: LIDOCAINE HCL 1% 50 MG/5 ML VL PF IJ ONE (13:26)
[2023-01-17] MEDS ORDERED: Pepcid 20 MG VIAL IV ONE (14:12)
[2023-01-17] MEDS ORDERED: Reglan 10 MG/2 ML ONE (14:12)
[2023-01-17] MEDS ORDERED: Lactated Ringers 1,000 ML IV ONE (14:52)
[2023-01-17] MEDS ORDERED: DIPRIVAN 200 MG/20 ML IV ONE (14:52)
--- NOTE | 2023-01-17 16:39 | XRAY ---
Indication: Left hip and left piriformis injection. Intraoperative fluoroscopy provided for 27 seconds. 3 digital spot images obtained prone submitted for interpretation demonstrates needle tip projecting lateral to left femur neck. Second needle tip projects over the left piriformis muscle. Small amount of contrast injected for both needle tip placement. Correlate with intraoperative findings/report.
--- NOTE | 2023-01-17 16:43 | XRAY ---
27 seconds of fluoroscopy was used in surgery for a left intra-articular hip and left piriformis injection.
== END 2023-01-17 15:45 | disposition home or self-care (01) ==
LOC: SDC-PAIN 13:25
PROVIDERS: ATTEND Psychiatry & Neurology Pain Medicine
DX: M16.12 Unilateral primary osteoarthritis, left hip (principal); M79.18 Myalgia, other site; Z79.899 Other long term (current) drug therapy
CPT/HCPCS: 20552; 20610; 73502; 77002; 99100; J1030; J1100; J2001; J2704; Q9966

== ENCOUNTER 2023-01-31 15:04 | Inpatient (IN) | payer MEDICARE, BC ==
[2023-01-31] MEDS ORDERED: DUONEB 0.5-3 MG/3 ml Neb IH ONE ×2 (15:12→15:29)
--- NOTE | 2023-01-31 16:06 | ERPHSYRPT ---
- History of Present Illness Time Seen by Provider: 01/31/23 16:04 Source: patient Exam Limitations: no limitations Patient Subjective Stated Complaint: I started having trouble breathing and coughing yesterday. I woke up this morning with a fever. Triage Nursing Assessment: Patients presents with labored breathing and appears short of breath. O2 sats on room air 88%, sats increased to 98% with 2L oxygen. Productive cough with thick yellow sputum. Patient reports headache 03/31. Temperature via temporal 101.0. Patient denies taking any tylenol or ibuprofen prior to coming to ED. Patient reports that she has been having diarrhea and vomiting today and that she has had a poor appetite x 3 days. Anterior right lung valdez sound coarse with expiration, anterior left lung valdez sound clear. Patient reports pain with deep inspiration. Physician History: 77-year-old female presents to our ED for evaluation of shortness of breath cough and fever. Patient states shortness of breath started 1 day ago. Fever was observed this morning. Patient states she is got a productive cough. Cough productive of yellow sputum. Patient advises intermittent nausea vomiting and diarrhea. On arrival to our ED today patient was observed to have an O2 sat of 80% on room air. Patient states she normally does not require oxygen. Patient was placed on 2 L nasal cannula. O2 sat 97%. Patient feels comfortable at rest. History of open heart surgery. Patient has no chest pain. No diaphoresis. Patient feels well at this time resting with nasal cannula oxygen in place. Patient voices no other complaints or concerns at this time. Portions of this note were created with voice recognition technology. There may be grammatical, spelling, punctuation or sound alike errors Timing/Duration: yesterday Activities at Onset: activity Severity of Dyspnea-Max: moderate Severity of Dyspnea-Current: mild Possible Cause: no prior episodes Modifying Factors: Improves With: oxygen Associated Symptoms: productive cough, No chills, No calf pain, No heart racing, No painful breathing Allergies/Adverse Reactions: iodine Allergy (Severe, Verified 01/31/23 15:10) Hives Home Medications: Carvedilol [Coreg] 25 mg PO BID 08/06/20 [History] Losartan Potassium [Cozaar] 25 mg PO BID 08/06/20 [History] Potassium Chloride [Klor-Con] 20 meq PO DAILY 08/06/20 [History] Multivitamin [Multiple Vitamins] 1 each PO DAILY 05/23/21 [History] Albuterol Sulfate [Proair Respiclick] 2 puff IH QID PRN 01/08/22 [History] Atorvastatin Calcium 80 mg PO HS 01/08/22 [History] Melatonin 3 mg PO HS PRN 01/08/22 [History] Polyethylene Glycol 3350 17 gm [Miralax Powder 17GM PACKET] 17 gm PO DAILY PRN PRN 01/08/22 [History] Albuterol/Ipratropium 3ml Neb* [DUONEB 0.5-3 MG/3 ml Neb] 1 neb IH Q4HPRN PRN 05/24/22 [History] Amlodipine Besylate [Norvasc] 5 mg PO BID 05/24/22 [History] Fluticasone/Salmeterol 115/21 [Advair Hfa 115/21 Common canister*] 1 puff IH BIDRT 05/24/22 [History] Hx Tetanus, Diphtheria Vaccination/Date Given: Yes Hx Influenza Vaccination/Date Given: Yes Hx Pneumococcal Vaccination/Date Given: Yes Immunizations Up to Date: Yes Travel Risk - International Travel Have you traveled outside of the country in past 3 weeks: No - Coronavirus Screening Are you exhibiting any of the following symptoms?: Yes Symptoms: Fever, Cough: New Onset, Shortness of Breath, Vomiting/Diarrhea, Headaches/Body Aches/Fatigue Close contact with a COVID-19 positive Pt in past 14-21 Days: No - Vaccine Status Have you recieved a Covid-19 vaccination: Yes Pick Up Man: Moderna - Vaccination Dates Date of 2cond Vaccination (if applicable): unknown - Review of Systems Constitutional: No Symptoms, No Fever, No Chills Eyes: No Symptoms Ears, Nose, & Throat: No Symptoms Respiratory: No Symptoms, No Cough, No Dyspnea Cardiac: No Symptoms, No Chest Pain, No Edema, No Syncope Abdominal/Gastrointestinal: No Symptoms, No Abdominal Pain, No Nausea, No Vomiting, No Diarrhea Genitourinary Symptoms: No Symptoms, No Dysuria Musculoskeletal: No Symptoms, No Back Pain, No Neck Pain Skin: No Symptoms, No Rash Neurological: No Symptoms, No Dizziness, No Focal Weakness, No Sensory Changes Psychological: No Symptoms Endocrine: No Symptoms Hematologic/Lymphatic: No Symptoms Immunological/Allergic: No Symptoms All Other Systems: Reviewed and Negative - Past Medical History Pertinent Past Medical History: Yes Neurological History: No Pertinent History ENT History: Cataracts Cardiac History: Coronary Artery Disease, High Cholesterol, Hypertension Respiratory History: COPD, Emphysema, Pneumonia Endocrine Medical History: No Pertinent History Musculoskeletal History: Arthritis, Osteoarthritis GI Medical History: GERD, Polyps History: No Pertinent History Psycho-Social History: No Pertinent History Female Reproductive Disorders: No Pertinent History Other Medical History: bleeding ulcer, insomnia - Past Surgical History Past Surgical History: Yes Neuro Surgical History: No Pertinent History Cardiac: CABG Respiratory: No Pertinent History Gastrointestinal: Appendectomy, Cholecystectomy, Other Genitourinary: No Pertinent History Musculoskeletal: Orthopedic Surgery Female Surgical History: Hysterectomy, Tubal Ligation Other Surgical History: 2 screws in lower back,carpal tunnel release to right wrist, ankle, bleeding ulcer repair - Social History Smoking Status: Former smoker Exposure to second hand smoke: No Drug Use: none Patient Lives Alone: Yes - Nursing Vital Signs Nursing Vital Signs: Initial Vital Signs Temperature 101.0 F 01/31/23 15:11 Pulse Rate 80 01/31/23 15:11 Respiratory Rate 22 01/31/23 15:11 Blood Pressure 150/80 01/31/23 15:11 O2 Sat by Pulse Oximetry 88 L 01/31/23 15:11 Pain Scale Pain Intensity 3 - Physical Exam General Appearance: no apparent distress, alert Eye Exam: PERRL/EOMI, eyes nml inspection Ears, Nose, Throat Exam: hearing grossly normal, normal ENT inspection, normal pharynx Neck Exam: normal inspection, supple, full range of motion Respiratory Exam: normal breath sounds, lungs clear Cardiovascular/Chest Exam: normal heart sounds, regular rate/rhythm Abdominal/Gastrointestinal Exam: soft, No tenderness, No distention, No mass Extremity Exam: non-tender, normal range of motion, normal inspection, no calf tenderness, no pedal edema Peripheral Pulses Exam: dorsalis-pedis (R): 2+, dorsalis-pedis (L): 2+ Neurologic Exam: alert, oriented x 3, cooperative, order entry specialist II-XII nml as tested, sensation nml, No motor deficits Skin Exam: normal color, warm, No dry Lymphatic Exam: No adenopathy SpO2 Interpretation: normal SpO2: 97 O2 Delivery: Nasal Cannula (2 L nasal cannula) - Course Nursing assessment & vital signs reviewed: Yes EKG Interpreted by Me: RATE (81), Sinus Rhythm, NORMAL AXIS, NORMAL INTERVALS - Radiology Exams Chest X-ray Interpretation: Teleradiologist Report (Nonacute chest with chronic features) Ordered Tests: Active Orders 24 hr Category Date Time Status Stereo Equipment Salesperson STAT Care 01/31/23 15:53 Active EKG-ER Only STAT Care 01/31/23 15:52 Active IV Insertion STAT Care 01/31/23 15:52 Active Oxygen-ED Only Nasal Cannula 2 lpm Care 01/31/23 15:57 Active Pulse Oximetry (ED) STAT Care 01/31/23 15:52 Active CHEST 1 VIEW (PORTABLE) Stat Exams 01/31/23 16:20 Completed BLOOD CULTURE Stat Lab 01/31/23 16:55 Received CBC W DIFF Stat Lab 01/31/23 15:25 Completed CMP Stat Lab 01/31/23 15:25 Completed Respiratory Therapy Assessment DAILY RT 01/31/23 15:31 Active Transfer Order Routine Transfer 01/31/23 Ordered Medication Summary Generic Name Dose Route Start Last Admin Trade Name Freq PRN Reason Stop Dose Admin Ceftriaxone Sodium/Dextrose 2 g in 50 mls @ 100 mls/hr 01/31/23 17:22 Rocephin 2 Gm-D5w 50ml Bag IV 01/31/23 17:51 STAT STA Azithromycin 500 mg in 250 mls @ 250 mls/hr 01/31/23 17:22 Zithromax 500 Mg/ 250 Ml Nacl Premix IV 01/31/23 18:21 STAT STA Discontinued Medications Generic Name Dose Route Start Last Admin Trade Name Freq PRN Reason Stop Dose Admin Albuterol/Ipratropium Confirm 01/31/23 15:12 Ipratropium/Albuterol Sulfate 3 Ml Ampul.Neb Administered 01/31/23 15:13 Dose 3 ml IH .STK-MED ONE Albuterol/Ipratropium 3 ml 01/31/23 15:29 01/31/23 15:30 Ipratropium/Albuterol Sulfate 3 Ml Ampul.Neb IH 01/31/23 15:30 3 ml STAT ONE Administration Methylprednisolone Sodium 0 mg 01/31/23 17:27 Succinate 125 mg/ Sterile IV 01/31/23 17:28 Water 2 ml STAT ONE Lab/Rad Data: Laboratory Result Diagrams 01/31/23 15:25 01/31/23 15:25 Laboratory Results 01/31/23 01/31/23 01/31/23 Range/Units 15:30 15:25 15:25 WBC 10.7 H (4.0-10.5) x10^3/uL RBC 3.69 L (4.1-5.4) x10^6/uL Hgb 12.0 (12.0-16.0) g/dL Hct 38.6 (35-47) % MCV 104.6 H (78-100) fL MCH 32.5 H (26-32) pg MCHC 31.1 L (32-36) g/dL RDW 15.3 H (11.5-14.0) % Plt Count 247 (150-450) x10^3/uL MPV 9.3 (7.5-11.0) fL Gran % 60.7 (36.0-66.0) % Immature Gran % (Auto) 0.4 (0.00-0.4) % Nucleat RBC Rel Count 0.0 (0.00-0.1) % Eos # (Auto) 0.08 (0-0.5) x10^3/uL Immature Gran # (Auto) 0.04 H (0.00-0.03) x10^3u/L Absolute Lymphs (auto) 2.89 (1.0-4.6) x10^3/uL Absolute Monos (auto) 1.13 (0.0-1.3) x10^3/uL Absolute Nucleated RBC 0.00 (0.00-0.01) x10^3u/L Lymphocytes % 27.0 (24.0-44.0) % Monocytes % 10.6 (0.0-12.0) % Eosinophils % 0.7 (0.00-5.0) % Basophils % 0.6 (0.0-0.4) % Absolute Granulocytes 6.50 (1.4-6.9) x10^3/uL Basophils # 0.06 (0-0.4) x10^3/uL Sodium 136 L (137-145) mmol/L Potassium 4.3 (3.5-5.1) mmol/L Chloride 102 (98-107) mmol/L Carbon Dioxide 22 (22-30) mmol/L Anion Gap 16.1 H (5-15) MEQ/L BUN 12 (7-17) mg/dL Creatinine 0.61 (0.52-1.04) mg/dL Estimated GFR > 60.0 ML/MIN Glucose 113 H (74-106) mg/dL Calcium 8.7 (8.4-10.2) mg/dL Total Bilirubin 0.60 (0.2-1.3) mg/dL AST 57 H (14-36) U/L ALT 44 H (0-35) U/L Alkaline Phosphatase 104 (38-126) U/L Serum Total Protein 7.5 (6.3-8.2) g/dL Albumin 4.1 (3.5-5.0) g/dL Influenza Type A Ag NEGATIVE (NEGATIVE) Influenza Type B Ag NEGATIVE (NEGATIVE) RSV (PCR) NEGATIVE (NEGATIVE) SARS-CoV-2 (PCR) NEGATIVE (NEGATIVE) - Progress Progress: improved Air Movement: good Progress Note: Patient is a 77-year-old female presents to our ED for evaluation of productive cough and shortness of breath. Upon arrival to our ED patient was found to be hypoxic at 88%. Patient was placed on 2 L nasal cannula right away. Physical exam essentially within normal limits. No distress. Chest x-ray negative for pneumonia. However patient is known to have COPD. EKG showed normal sinus rhythm. CBC showed a mild leukocytosis CMP within normal limits. COVID test negative. Patient received albuterol treatment which improved her symptoms. Patient received Rocephin and azithromycin to treat COPD exacerbation. Cell the Medrol administered. Patient started on 2 L oxygen via nasal cannula for hypoxia. Case discussed with patient's primary care doctor who accepts admission to observation. Plan of care discussed with patient. She agrees to admission [facility] for further evaluation and treatment. Patient voices no other complaints or concerns at this time. Portions of this note were created with voice recognition technology. There may be grammatical, spelling, punctuation or sound alike errors Patient presenting complaint was acute. Complexity of problem addressed is moderate acute on chronic exacerbation of COPD. No critical care time. Complexity of data reviewed and analyzed is extensive. Test ordered. Test re viewed and analyzed. Patient served as an independent historian. EKG independently read by Dr. Burgess. Management is discussed with Dr. Linares who accepts admission to observation. State CODA level and why. testing ordered (labs/EKG/imaging). Number of imaging studies. Results obtained/reviewed/analyzed and that results used in MDM. State if patient is independent historian. Any outside documents reviewed. Any independent interpretation of tests/imaging/EKG. Discussion of tests results and management with outside provider Plan of care established via shared decision making model. Risk of complication and or risk of morbidity/mortality is high. Patient received albuterol nebulizer treatment. Patient will be hospitalized for further evaluation and treatment of COPD/fever and hypoxia Patient agrees to admission [facility] for further evaluation and treatment. Vital stable. Patient voices no other complaints or concerns at this time. Portions of this note were created with voice recognition technology. There may be grammatical, spelling, punctuation or sound alike errors 01/31/23 17:29 Blood Culture(s) Obtained: Yes Antibiotics given: Yes Discussed with : Nishi Will see patient in: hospital (observation) Counseled pt/family regarding: lab results, diagnosis, rad results - Departure Departure Disposition: Observation Clinical Impression: COPD exacerbation, Shortness of breath, Hypoxia, Fever Condition: Stable Critical Care Time: No Referrals: MARIUSZ LINARES MD [Primary Care Provider] - Follow up/PCP as directed Instructions: Chronic Obstructive Pulmonary Disease
[2023-01-31 16:19] LABS: BASOPHIL % 0.6 % (0.0-0.4); Basophil (Absolute #) 0.06 x10^3/uL (0-0.4); Eosinophil % 0.7 % (0.00-5.0); Eosinophil (Absolute #) 0.08 x10^3/uL (0-0.5); Hematocrit 38.6 % (35-47); IMMATURE GRAN # 0.04 x10^3u/L (0.00-0.03); IMMATURE GRAN % 0.4 % (0.00-0.4); Lymphocyte (Absolute #) 2.89 x10^3/uL (1.0-4.6); Mean Cell Volume 104.6 fL (78-100); Mean Corpuscular Hemoglobin 32.5 pg (26-32); Mean Corpuscular Hgb Concent. 31.1 g/dL (32-36); Mean Platelet Volume 9.3 fL (7.5-11.0); Monocyte (Absolute #) 1.13 x10^3/uL (0.0-1.3); Monocytes % 10.6 % (0.0-12.0); Neutrophil % 60.7 % (36.0-66.0); Platelet Count 247 x10^3/uL (150-450); Red Blood Count 3.69 x10^6/uL (4.1-5.4); Red Cell Distribution Width 15.3 % (11.5-14.0); White Blood Count 10.7 x10^3/uL (4.0-10.5)
[2023-01-31 16:35] LABS: ALBUMIN 4.1 g/dL (3.5-5.0); ALKALINE PHOSPHATASE 104 U/L (38-126); ANION GAP 16.1 MEQ/L (5-15); BLOOD UREA NITROGEN 12 mg/dL (7-17); CHLORIDE 102 mmol/L (98-107); Calcium 8.7 mg/dL (8.4-10.2); Carbon Dioxide 22 mmol/L (22-30); Creatinine 1 0.61 mg/dL (0.52-1.04); EST GLOMERULAR FILTRATION RATE > 60.0 ML/MIN; Glucose 113 mg/dL (74-106); Potassium 4.3 mmol/L (3.5-5.1); SGOT/AST 57 U/L (14-36); SGPT/ALT 44 U/L (0-35); SODIUM 136 mmol/L (137-145); Total Protein 7.5 g/dL (6.3-8.2)
[2023-01-31 16:56] LABS: INFLUENZA A NEGATIVE (NEGATIVE); INFLUENZA B NEGATIVE (NEGATIVE); RESPIRATORY SYNCTIAL VIRUS NEGATIVE (NEGATIVE); SARS-CoV-2 Xpert Express NEGATIVE (NEGATIVE)
--- NOTE | 2023-01-31 17:03 | XRAY ---
Indication: Fever, cough, and short of breath. Comparison: November 23, 2022 Portable chest again demonstrates COPD with scattered fibrosis/scarring. No focal infiltrate, consolidation, or large effusion. 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 Bony thorax intact again with osteopenia and degenerative changes. Impression: Continued nonacute chest with chronic features.
[2023-01-31] MEDS ORDERED: Zithromax 500 MG/ 250 ML NaCl Premix 500 MG/250 ML IVPB IV STA (17:22)
[2023-01-31] MEDS ORDERED: ROCEPHIN 2 Gm-D5w 50ML BAG** 2 G/50 ML IVPB IV STA (17:22)
[2023-01-31] MEDS ORDERED: solu-MEDROL 125 MG, Sterile H2O 10 ml 2 ML IV ONE ×2 (17:27)
[2023-01-31] MEDS ORDERED: ROCEPHIN 2 Gm-D5w 50ML BAG** 2 G/50 ML IVPB IV ONE (17:28)
[2023-01-31] MEDS ORDERED: Sterile H2O 10 ml IJ ONE ×2 (17:42→22:44)
[2023-01-31] MEDS ORDERED: solu-MEDROL ONE ×2 (17:42→22:43)
[2023-01-31] MEDS: solu-MEDROL 60 MG, Sterile H2O 10 ml 2 ML IV SCH ×4 (18:58→22:48)
[2023-01-31] MEDS: PROVENTIL 2.5 MG/3 ML NEB IH SCH ×2 (19:01→22:40)
[2023-01-31] MEDS: Advair Hfa 115/21 Common canister IH SCH (19:04)
[2023-01-31] MEDS ORDERED: REMERON 30 MG ONE (22:44)
[2023-01-31] MEDS: REMERON 30 MG PO SCH (22:48)
[2023-02-01] MEDS: ULTRAM 50 MG PO PRN ×2 (00:34→16:01)
[2023-02-01] MEDS: PROVENTIL 2.5 MG/3 ML NEB IH SCH ×6 (02:45→23:30)
[2023-02-01 05:28] LABS: Hematocrit 34.6 % (35-47); Hemoglobin 11.4 g/dL (12.0-16.0); Mean Cell Volume 100.3 fL (78-100); Mean Corpuscular Hgb Concent. 32.9 g/dL (32-36); Mean Platelet Volume 8.9 fL (7.5-11.0); Platelet Count 248 x10^3/uL (150-450); Red Blood Count 3.45 x10^6/uL (4.1-5.4); Red Cell Distribution Width 14.8 % (11.5-14.0); White Blood Count 9.2 x10^3/uL (4.0-10.5)
[2023-02-01 05:39] LABS: ALBUMIN 3.9 g/dL (3.5-5.0); ALKALINE PHOSPHATASE 111 U/L (38-126); ANION GAP 13.1 MEQ/L (5-15); BLOOD UREA NITROGEN 10 mg/dL (7-17); CHLORIDE 99 mmol/L (98-107); Calcium 8.8 mg/dL (8.4-10.2); Carbon Dioxide 26 mmol/L (22-30); Creatinine 1 0.58 mg/dL (0.52-1.04); EST GLOMERULAR FILTRATION RATE > 60.0 ML/MIN; Glucose 182 mg/dL (74-106); SGOT/AST 48 U/L (14-36); SGPT/ALT 47 U/L (0-35); SODIUM 134 mmol/L (137-145); Total Protein 7.2 g/dL (6.3-8.2)
[2023-02-01] MEDS: Advair Hfa 115/21 Common canister IH SCH ×2 (06:49→18:54)
[2023-02-01] MEDS ORDERED: solu-MEDROL ONE (06:52)
[2023-02-01] MEDS ORDERED: Sterile H2O 10 ml IJ ONE (06:52)
[2023-02-01] MEDS: solu-MEDROL 60 MG, Sterile H2O 10 ml 2 ML IV SCH ×6 (06:57→18:41)
[2023-02-01] MEDS: ROCEPHIN 1 Gm-D5w 50 ml Bag** 1 G/50 ML IVPB IV SCH (10:00)
--- NOTE | 2023-02-01 10:40 | PCM.HP ---
History of Present Illness - Chief Complaint Chief Complaint: c/o shortness of breath for 2-3 days History of Present Illness: is a 77 year old female.presents to our ED for evaluation of shortness of breath cough and fever. Patient states shortness of breath started 1 day ago. Fever was observed this morning. Patient states she is got a productive cough. Cough productive of yellow sputum. Patient advises intermittent nausea vomiting and diarrhea. On arrival to our ED today patient was observed to have an O2 sat of 80% on room air. Patient states she normally does not require oxygen. Patient was placed on 2 L nasal cannula. O2 sat 97%. Patient feels comfortable at rest. History of open heart surgery. Patient has no chest pain. No diaphoresis. - Review of Systems Constitutional: No Fever, No Chills Eyes: No Symptoms Ears, Nose, & Throat: No Symptoms Respiratory: Cough, Orthopnea, Short Of Breath, Wheezing Cardiac: No Chest Pain, No Edema, No Syncope Abdominal/Gastrointestinal: No Abdominal Pain, No Nausea, No Vomiting, No Diarrhea Genitourinary Symptoms: No Dysuria Musculoskeletal: No Back Pain, No Neck Pain Skin: No Rash Neurological: No Dizziness, No Focal Weakness, No Sensory Changes Psychological: No Symptoms Endocrine: No Symptoms Hematologic/Lymphatic: No Symptoms Immunological/Allergic: No Symptoms Medications & Allergies Home Medications: Home Medication List Carvedilol [Coreg] 25 mg PO BID 08/06/20 [History Confirmed 01/31/23] Losartan Potassium [Cozaar] 25 mg PO BID 08/06/20 [History Confirmed 01/31/23] Potassium Chloride [Klor-Con] 20 meq PO DAILY 08/06/20 [History Confirmed 01/31/23] Multivitamin [Multiple Vitamins] 1 each PO DAILY 05/23/21 [History Confirmed 01/31/23] PANTOPRAZOLE 40 mg Tablet [Protonix 40MG Tablet] 40 mg PO QAM #30 tab 11/10/21 [Rx Confirmed 01/31/23] Albuterol Sulfate [Proair Respiclick] 2 puff IH Q6HPRN PRN 01/08/22 [History Confirmed 01/31/23] Melatonin 3 mg PO HS PRN 01/08/22 [History Confirmed 01/31/23] Polyethylene Glycol 3350 17 gm [Miralax Powder 17GM PACKET] 17 gm PO DAILY PRN PRN 01/08/22 [History Confirmed 01/31/23] Acetaminophen 325 mg [Tylenol 325 mg] 650 mg PO Q4H PRN PRN tablet 01/09/22 [Rx Confirmed 01/31/23] Albuterol/Ipratropium 3ml Neb* [DUONEB 0.5-3 MG/3 ml Neb] 1 neb IH Q4HPRN PRN 05/24/22 [History Confirmed 01/31/23] Amlodipine Besylate [Norvasc] 5 mg PO DAILY 05/24/22 [History Confirmed 01/31/23] Fluticasone/Salmeterol 115/21 [Advair Hfa 115/ Common canister*] 1 puff IH BIDRT 05/24/22 [History Confirmed 01/31/23] Famotidine 20 mg [Pepcid 20 MG] 20 mg PO BID 01/31/23 [History Confirmed 01/31/23] Folic Acid 1 mg [Folate 1 mg] 1 mg PO DAILY 01/31/23 [History Confirmed 01/31/23] Mirtazapine [Remeron] 15 mg PO HS 01/31/23 [History Confirmed 01/31/23] Rosuvastatin Calcium 20 mg PO HS 01/31/23 [History Confirmed 01/31/23] Tramadol HCl 50 mg [Ultram 50 mg] 50 mg PO TIDPRN PRN 01/31/23 [History Confirmed 01/31/23] Allergies/Adverse Reactions: Allergies Allergy/AdvReac Type Severity Reaction Status Date / Time iodine Allergy Severe Hives Verified 01/31/23 15:10 - Past Medical History Past Medical History: Yes Neurological History: No Pertinent History ENT History: Cataracts Cardiac History: Coronary Artery Disease, High Cholesterol, Hypertension Respiratory History: COPD, Emphysema, Pneumonia Endocrine Medical History: No Pertinent History Musculoskelatal History: Arthritis, Osteoarthritis GI Medical History: GERD, Gallbladder Disease, Polyps History: No Pertinent History Pyscho-Social History: No Pertinent History Reproductive Disorders: No Pertinent History Comment: bleeding ulcer, insomnia - Female History Are you now?: No - Past Surgical History Past Surgical History: Yes Neuro Surgical History: No Pertinent History Cardiac History: CABG Respiratory Surgery: No Pertinent History GI Surgical History: Appendectomy, Cholecystectomy, Other Genitourinary Surgical Hx: No Pertinent History Musculskeletal Surgical Hx: Orthopedic Surgery Female Surgical History: Hysterectomy, Tubal Ligation Other Surgical History: 2 screws in lower back,carpal tunnel release to right wrist, ankle, bleeding ulcer repair - Social History Smoking Status: Former smoker Exposure to second hand smoke: No Alcohol: None Drug Use: none - Physical Exam Vital Signs: Vital Signs - 24 hr Temp Pulse Resp BP Pulse Ox 02/01/23 08:00 96.4 F 62 17 115/60 98 02/01/23 06:47 61 16 99 02/01/23 03:58 96.9 F 61 18 140/69 98 02/01/23 02:45 63 18 98 01/31/23 23:33 97.5 F 67 18 113/59 95 01/31/23 22:50 73 20 97 01/31/23 20:00 97.2 F 78 16 134/75 94 L 01/31/23 19:05 74 27 H 92 L 01/31/23 18:48 91 L 01/31/23 17:57 97.7 F 96 H 20 142/106 96 01/31/23 17:34 97 01/31/23 17:08 74 24 120/52 98 01/31/23 16:05 118/60 98 01/31/23 16:03 88 L 01/31/23 15:31 78 20 97 01/31/23 15:11 101.0 F 80 22 150/80 100 General Appearance: no apparent distress, alert Neurologic Exam: alert, oriented x 3, cooperative, normal mood/affect, nml cerebellar function, nml station & gait, sensation nml, No motor deficits Eye Exam: PERRL/EOMI, eyes nml inspection Ears, Nose, Throat Exam: normal ENT inspection, TMs normal, pharynx normal, moist mucous membranes Neck Exam: normal inspection, non-tender, supple, full range of motion Respiratory Exam: diminished breath sounds, crackles/rales, rhonchi, wheezing, No respiratory distress Cardiovascular Exam: regular rate/rhythm, normal heart sounds, normal peripheral pulses Gastrointestinal/Abdomen Exam: soft, normal bowel sounds, No tenderness, No mass Back Exam: normal inspection, normal range of motion, No CVA tenderness, No vertebral tenderness Extremity Exam: normal inspection, normal range of motion, pelvis stable Skin Exam: normal color, warm, dry, No rash Lymphatic Exam: No adenopathy Results - Labs Lab/Micro Results: Lab Results-Last 24 Hours 01/31/23 01/31/23 01/31/23 Range/Units 15:25 15:25 15:30 WBC 10.7 H (4.0-10.5) x10^3/uL RBC 3.69 L (4.1-5.4) x10^6/uL Hgb 12.0 (12.0-16.0) g/dL Hct 38.6 (35-47) % MCV 104.6 H (78-100) fL MCH 32.5 H (26-32) pg MCHC 31.1 L (32-36) g/dL RDW 15.3 H (11.5-14.0) % Plt Count 247 (150-450) x10^3/uL MPV 9.3 (7.5-11.0) fL Gran % 60.7 (36.0-66.0) % Immature Gran % (Auto) 0.4 (0.00-0.4) % Nucleat RBC Rel Count 0.0 (0.00-0.1) % Eos # (Auto) 0.08 (0-0.5) x10^3/uL Immature Gran # (Auto) 0.04 H (0.00-0.03) x10^3u/L Absolute Lymphs (auto) 2.89 (1.0-4.6) x10^3/uL Absolute Monos (auto) 1.13 (0.0-1.3) x10^3/uL Absolute Nucleated RBC 0.00 (0.00-0.01) x10^3u/L Lymphocytes % 27.0 (24.0-44.0) % Monocytes % 10.6 (0.0-12.0) % Eosinophils % 0.7 (0.00-5.0) % Basophils % 0.6 (0.0-0.4) % Absolute Granulocytes 6.50 (1.4-6.9) x10^3/uL Basophils # 0.06 (0-0.4) x10^3/uL Sodium 136 L (137-145) mmol/L Potassium 4.3 (3.5-5.1) mmol/L Chloride 102 (98-107) mmol/L Carbon Dioxide 22 (22-30) mmol/L Anion Gap 16.1 H (5-15) MEQ/L BUN 12 (7-17) mg/dL Creatinine 0.61 (0.52-1.04) mg/dL Estimated GFR > 60.0 ML/MIN Glucose 113 H (74-106) mg/dL Calcium 8.7 (8.4-10.2) mg/dL Total Bilirubin 0.60 (0.2-1.3) mg/dL AST 57 H (14-36) U/L ALT 44 H (0-35) U/L Alkaline Phosphatase 104 (38-126) U/L Serum Total Protein 7.5 (6.3-8.2) g/dL Albumin 4.1 (3.5-5.0) g/dL Influenza Type A Ag NEGATIVE (NEGATIVE) Influenza Type B Ag NEGATIVE (NEGATIVE) RSV (PCR) NEGATIVE (NEGATIVE) SARS-CoV-2 (PCR) NEGATIVE (NEGATIVE) 02/01/23 02/01/23 Range/Units 04:58 04:58 WBC 9.2 (4.0-10.5) x10^3/uL RBC 3.45 L (4.1-5.4) x10^6/uL Hgb 11.4 L (12.0-16.0) g/dL Hct 34.6 L (35-47) % MCV 100.3 H (78-100) fL MCH 33.0 H (26-32) pg MCHC 32.9 (32-36) g/dL RDW 14.8 H (11.5-14.0) % Plt Count 248 (150-450) x10^3/uL MPV 8.9 (7.5-11.0) fL Gran % (36.0-66.0) % Immature Gran % (Auto) (0.00-0.4) % Nucleat RBC Rel Count (0.00-0.1) % Eos # (Auto) (0-0.5) x10^3/uL Immature Gran # (Auto) (0.00-0.03) x10^3u/L Absolute Lymphs (auto) (1.0-4.6) x10^3/uL Absolute Monos (auto) (0.0-1.3) x10^3/uL Absolute Nucleated RBC (0.00-0.01) x10^3u/L Lymphocytes % (24.0-44.0) % Monocytes % (0.0-12.0) % Eosinophils % (0.00-5.0) % Basophils % (0.0-0.4) % Absolute Granulocytes (1.4-6.9) x10^3/uL Basophils # (0-0.4) x10^3/uL Sodium 134 L (137-145) mmol/L Potassium 4.0 (3.5-5.1) mmol/L Chloride 99 (98-107) mmol/L Carbon Dioxide 26 (22-30) mmol/L Anion Gap 13.1 (5-15) MEQ/L BUN 10 (7-17) mg/dL Creatinine 0.58 (0.52-1.04) mg/dL Estimated GFR > 60.0 ML/MIN Glucose 182 H (74-106) mg/dL Calcium 8.8 (8.4-10.2) mg/dL Total Bilirubin 0.30 (0.2-1.3) mg/dL AST 48 H (14-36) U/L ALT 47 H (0-35) U/L Alkaline Phosphatase 111 (38-126) U/L Serum Total Protein 7.2 (6.3-8.2) g/dL Albumin 3.9 (3.5-5.0) g/dL Influenza Type A Ag (NEGATIVE) Influenza Type B Ag (NEGATIVE) RSV (PCR) (NEGATIVE) SARS-CoV-2 (PCR) (NEGATIVE) - Radiology Impressions Radiology Exams & Impressions: Radiology Procedures Category Date Time Status CHEST 1 VIEW (PORTABLE) Stat Exams 01/31/23 16:20 Completed - Other Procedures and Tests Respiratory Therapy 01/31/23 18:06 Respiratory Therapy Assessment DAILY 01/31/23 18:07 Oxygen Nasal Cannula 2 lpm Assessment/Plan (1) COPD exacerbation Current Visit: Yes Status: Acute Assessment & Plan: Chief Complaint Diagnosis COPD exacerbation Allergies Allergy/AdvReac Type Severity Reaction Status Date / Time iodine Allergy Severe Hives Verified 01/31/23 15:10 Vital Signs (Last 24 hours) Temp Pulse Resp BP Pulse Ox 02/01/23 08:00 96.4 F 62 17 115/60 98 02/01/23 06:47 61 16 99 02/01/23 03:58 96.9 F 61 18 140/69 98 02/01/23 02:45 63 18 98 01/31/23 23:33 97.5 F 67 18 113/59 95 01/31/23 22:50 73 20 97 01/31/23 20:00 97.2 F 78 16 134/75 94 L 01/31/23 19:05 74 27 H 92 L 01/31/23 18:48 91 L 01/31/23 17:57 97.7 F 96 H 20 142/106 96 01/31/23 17:34 97 01/31/23 17:08 74 24 120/52 98 01/31/23 16:05 118/60 98 01/31/23 16:03 88 L 01/31/23 15:31 78 20 97 01/31/23 15:11 101.0 F 80 22 150/80 100 Home Medications Medication Instructions Recorded Confirmed Last Taken Type Famotidine 20 mg [Pepcid 20 20 mg PO BID 01/31/23 01/31/23 01/31/23 History MG] Folic Acid 1 mg [Folate 1 mg] 1 mg PO DAILY 01/31/23 01/31/23 01/31/23 History Mirtazapine [Remeron] 15 mg PO HS 01/31/23 01/31/23 01/30/23 History Rosuvastatin Calcium 20 mg PO HS 01/31/23 01/31/23 01/30/23 History Tramadol HCl 50 mg [Ultram 50 50 mg PO TIDPRN PRN 01/31/23 01/31/23 Unknown History mg] Current Medications Generic Name Dose Route Start Last Admin Trade Name Freq PRN Reason Stop Dose Admin Albuterol Sulfate 2.5 mg 01/31/23 19:00 02/01/23 06:46 Albuterol Sulfate 2.5 Mg/3 Ml Neb IH 03/02/23 18:59 2.5 mg Q4HRT MICKY Administration Methylprednisolone Sodium 0 mg 01/31/23 18:00 02/01/23 06:57 Succinate 60 mg/ Sterile Water IV 03/02/23 17:59 60 mg 2 ml Q6HT MICKY Administration Ceftriaxone Sodium/Dextrose 1 g in 50 mls @ 100 mls/hr 02/01/23 10:00 Rocephin 1 Gm-D5w 50 Ml Bag IV 02/04/23 09:59 Q24H10 MICKY Azithromycin 500 mg in 250 mls @ 250 mls/hr 02/01/23 10:00 Zithromax 500 Mg/ 250 Ml Nacl Premix IV 03/03/23 09:59 Q24H10 MICKY Mirtazapine 15 mg 01/31/23 22:47 01/31/23 22:48 Mirtazapine 30 Mg Tablet PO 03/02/23 21:59 15 mg HS MICKY Administration Fluticasone/Salmeterol 2 puff 01/31/23 19:00 02/01/23 06:49 Fluticasone/Salmeterol 115/21 - 120 Puff Common Canister IH 03/02/23 18:59 2 puff BIDRT MICKY Administration Tramadol HCl 50 mg 01/31/23 22:27 02/01/23 00:34 Tramadol Hcl 50 Mg Tablet PO 03/02/23 22:26 50 mg TID PRN PRN Administration PAIN Discontinued Medications Generic Name Dose Route Start Last Admin Trade Name Freq PRN Reason Stop Dose Admin Albuterol/Ipratropium Confirm 01/31/23 15:12 Ipratropium/Albuterol Sulfate 3 Ml Ampul.Neb Administered 01/31/23 15:13 Dose 3 ml IH .STK-MED ONE Albuterol/Ipratropium 3 ml 01/31/23 15:29 01/31/23 15:30 Ipratropium/Albuterol Sulfate 3 Ml Ampul.Neb IH 01/31/23 15:30 3 ml STAT ONE Administration Methylprednisolone Sodium 0 mg 01/31/23 17:27 01/31/23 17:42 Succinate 125 mg/ Sterile IV 01/31/23 17:28 125 mg Water 2 ml STAT ONE Administration Ceftriaxone Sodium/Dextrose 2 g in 50 mls @ 100 mls/hr 01/31/23 17:22 01/31/23 17:29 Rocephin 2 Gm-D5w 50ml Bag IV 01/31/23 17:51 100 mls/hr STAT STA 100 mls/hr Administration Azithromycin 500 mg in 250 mls @ 250 mls/hr 01/31/23 17:22 01/31/23 22:21 Zithromax 500 Mg/ 250 Ml Nacl Premix IV 01/31/23 18:21 Not Given STAT STA Ceftriaxone Sodium/Dextrose Confirm 01/31/23 17:28 Rocephin 2 Gm-D5w 50ml Bag Administered 01/31/23 17:29 Dose 2 g in 50 mls @ ud IV .STK-MED ONE Methylprednisolone Sodium Succinate Confirm 01/31/23 17:42 Methylprednis Sod Succ 125 Mg/2 Ml Vial Administered 01/31/23 17:43 Dose 125 mg .ROUTE .STK-MED ONE Methylprednisolone Sodium Succinate Confirm 01/31/23 22:43 Methylprednis Sod Succ 125 Mg/2 Ml Vial Administered 01/31/23 22:44 Dose 125 mg .ROUTE .STK-MED ONE Methylprednisolone Sodium Succinate Confirm 02/01/23 06:52 Methylprednis Sod Succ 125 Mg/2 Ml Vial Administered 02/01/23 06:53 Dose 125 mg .ROUTE .STK-MED ONE Mirtazapine Confirm 01/31/23 22:44 Mirtazapine 30 Mg Tablet Administered 01/31/23 22:45 Dose 30 mg .ROUTE .STK-MED ONE Mirtazapine 15 mg 02/01/23 22:00 Mirtazapine 30 Mg Tablet PO 03/03/23 21:59 HS [facility] Sterile Water Confirm 01/31/23 17:42 Water For Injection,Sterile 10 Ml Vial Administered 01/31/23 17:43 Dose 10 ml IJ .STK-MED ONE Sterile Water Confirm 01/31/23 22:44 Water For Injection,Sterile 10 Ml Vial Administered 01/31/23 22:45 Dose 10 ml IJ .STK-MED ONE Sterile Water Confirm 02/01/23 06:52 Water For Injection,Sterile 10 Ml Vial Administered 02/01/23 06:53 Dose 10 ml IJ .STK-MED ONE Intake & Output (Last 24 hours) 01/29/23 01/30/23 01/31/23 02/01/23 11:59 11:59 11:59 11:59 Intake Total 520 Output Total 100 Balance 420 Weight 46.5 kg Microbiology Results (Last 24 hours) 01/31/23 16:55 Blood Blood Culture Gram Stain - Pending 01/31/23 16:55 Blood Blood Culture - Pending 01/31/23 15:25 Blood Blood Culture Gram Stain - Pending 01/31/23 15:25 Blood Blood Culture - Pending Laboratory Results (Last 24 hours) 02/01/23 02/01/23 01/31/23 04:58 04:58 15:30 WBC 9.2 RBC 3.45 L Hgb 11.4 L Hct 34.6 L MCV 100.3 H MCH 33.0 H MCHC 32.9 RDW 14.8 H Plt Count 248 MPV 8.9 Gran % Immature Gran % (Auto) Nucleat RBC Rel Count Eos # (Auto) Immature Gran # (Auto) Absolute Lymphs (auto) Absolute Monos (auto) Absolute Nucleated RBC Lymphocytes % Monocytes % Eosinophils % Basophils % Absolute Granulocytes Basophils # Sodium 134 L Potassium 4.0 Chloride 99 Carbon Dioxide 26 Anion Gap 13.1 BUN 10 Creatinine 0.58 Estimated GFR > 60.0 Glucose 182 H Calcium 8.8 Total Bilirubin 0.30 AST 48 H ALT 47 H Alkaline Phosphatase 111 Serum Total Protein 7.2 Albumin 3.9 Influenza Type A Ag NEGATIVE Influenza Type B Ag NEGATIVE RSV (PCR) NEGATIVE SARS-CoV-2 (PCR) NEGATIVE 01/31/23 01/31/23 15:25 15:25 WBC 10.7 H RBC 3.69 L Hgb 12.0 Hct 38.6 MCV 104.6 H MCH 32.5 H MCHC 31.1 L RDW 15.3 H Plt Count 247 MPV 9.3 Gran % 60.7 Immature Gran % (Auto) 0.4 Nucleat RBC Rel Count 0.0 Eos # (Auto) 0.08 Immature Gran # (Auto) 0.04 H Absolute Lymphs (auto) 2.89 Absolute Monos (auto) 1.13 Absolute Nucleated RBC 0.00 Lymphocytes % 27.0 Monocytes % 10.6 Eosinophils % 0.7 Basophils % 0.6 Absolute Granulocytes 6.50 Basophils # 0.06 Sodium 136 L Potassium 4.3 Chloride 102 Carbon Dioxide 22 Anion Gap 16.1 H BUN 12 Creatinine 0.61 Estimated GFR > 60.0 Glucose 113 H Calcium 8.7 Total Bilirubin 0.60 AST 57 H ALT 44 H Alkaline Phosphatase 104 Serum Total Protein 7.5 Albumin 4.1 Influenza Type A Ag Influenza Type B Ag RSV (PCR) SARS-CoV-2 (PCR) Orders (Last 24 hours) Category Date Time Status Bedrest ROUTINE Activity 01/31/23 17:55 Active Carpet Measurer STAT Care 01/31/23 15:53 Completed Code Status Order ROUTINE Care 01/31/23 17:55 Active EKG-ER Only STAT Care 01/31/23 15:52 Completed IV Care Q6H Care 01/31/23 17:55 Active IV Insertion STAT Care 01/31/23 15:52 Completed Oxygen-ED Only Nasal Cannula 2 lpm Care 01/31/23 15:[address] in Observation ROUTINE Care 01/31/23 17:55 Active Pulse Oximetry (ED) STAT Care 01/31/23 15:52 Completed Tim Mccoy Apply ROUTINE Care 01/31/23 17:55 Active Telemetry q4h Care 01/31/23 17:55 Active Weight,Daily 0600 Care 01/31/23 17:55 Active Consistent Carbohydrate Diet 1800 Calorie Diet 02/01/23 Breakfast Active CHEST 1 VIEW (PORTABLE) Stat Exams 01/31/23 16:20 Completed BLOOD CULTURE Stat Lab 01/31/23 16:55 Received CBC AM.LAB Lab 02/01/23 04:58 Completed CBC W DIFF Stat Lab 01/31/23 15:25 Completed CMP AM.LAB Lab 02/01/23 04:58 Completed CMP Stat Lab 01/31/23 15:25 Completed COVID/FLU/RSV Panel Stat Lab 01/31/23 15:30 Completed Albuterol 2.5 mg/3 ml Neb [Proventil 2.5 mg/3 ml Neb Med 01/31/23 19:00 Active ] 2.5 mg IH Q4HRT Albuterol/Ipratropium 3ml Neb* [DUONEB 0.5-3 MG/3 ml Med 01/31/23 15:12 Discontinued Neb] 3 ml IH .STK-MED ONE Albuterol/Ipratropium 3ml Neb* [DUONEB 0.5-3 MG/3 ml Med 01/31/23 15:29 Discontinued Neb] 3 ml IH STAT ONE Azithromycin 500 mg/250 ml [Zithromax 500 MG/ 250 ML Med 02/01/23 10:00 Active NaCl Premix] 500 mg in 250 ml IV Q24H10 Azithromycin 500 mg/250 ml [Zithromax 500 MG/ 250 ML Med 01/31/23 17:22 Discontinued NaCl Premix] 500 mg in 250 ml IV STAT Ceftriaxone 1 GM/50 ML PREMIX* [ROCEPHIN 1 Gm-D5w 50 ml Med 02/01/23 10:00 Active Bag] 1 g in 50 ml IV Q24H10 Ceftriaxone 2 GM/50 ML PREMIX* [ROCEPHIN 2 Gm-D5w 50ML Med 01/31/23 17:22 Discontinued BAG] 2 g in 50 ml IV STAT Ceftriaxone 2 GM/50 ML PREMIX* [ROCEPHIN 2 Gm-D5w 50ML Med 01/31/23 17:28 Discontinued BAG] 2 g in 50 ml IV UD Fluticasone/Salmeterol 115/21 [Advair Hfa 115/21 Common Med 01/31/23 19:00 Active canister*] 2 puff IH BIDRT Methylprednis Sod Succ 125 mg* [solu-MEDROL] Med 01/31/23 17:42 Discontinued 125 mg .ROUTE .STK-MED ONE Methylprednis Sod Succ 125 mg* [solu-MEDROL] Med 01/31/23 22:43 Discontinued 125 mg .ROUTE .STK-MED ONE Methylprednis Sod Succ 125 mg* [solu-MEDROL] Med 02/01/23 06:52 Discontinued 125 mg .ROUTE .STK-MED ONE Methylprednis Sod Succ 125 mg* [solu-MEDROL] 125 mg Med 01/31/23 17:27 Discontinued Water For Injection,Sterile [Sterile H2O 10 ml] 2 ml IV STAT Methylprednis Sod Succ 125 mg* [solu-MEDROL] 60 mg Med 01/31/23 18:00 Active Water For Injection,Sterile [Sterile H2O 10 ml] 2 ml IV Q6HT Mirtazapine 30 mg [Remeron 30 mg] Med 01/31/23 22:47 Active 15 mg PO HS Mirtazapine 30 mg [Remeron 30 mg] Med 02/01/23 22:00 Discontinued 15 mg PO HS Mirtazapine 30 mg [Remeron 30 mg] Med 01/31/23 22:44 Discontinued 30 mg .ROUTE .STK-MED ONE Tramadol HCl 50 mg [Ultram 50 mg] Med 01/31/23 22:27 Active 50 mg PO TID PRN PRN Water For Injection,Sterile [Sterile H2O 10 ml] Med 01/31/23 17:42 Discontinued 10 ml IJ .STK-MED ONE Water For Injection,Sterile [Sterile H2O 10 ml] Med 01/31/23 22:44 Discontinued 10 ml IJ .STK-MED ONE Water For Injection,Sterile [Sterile H2O 10 ml] Med 02/01/23 06:52 Discontinued 10 ml IJ .STK-MED ONE Oxygen Nasal Cannula 2 lpm RT 01/31/23 18:07 Active Pulse Oximetry CONTINUOUS RT 01/31/23 17:55 Active Respiratory MDI BID RT 01/31/23 19:00 Completed Respiratory Therapy Assessment DAILY RT 01/31/23 15:31 Completed Respiratory Therapy Assessment DAILY RT 01/31/23 18:06 Active Code(s): J44.1 - CHRONIC OBSTRUCTIVE PULMONARY DISEASE W (ACUTE) EXACERBATION
[2023-02-01] MEDS: Zithromax 500 MG/ 250 ML NaCl Premix 500 MG/250 ML IVPB IV SCH (10:52)
[2023-02-01] MEDS ORDERED: Miralax Powder 17GM PACKET PO PRN (11:20)
[2023-02-01] MEDS ORDERED: Zofran 4 MG/2 ML VIAL IV PRN (12:17)
[2023-02-01] MEDS: Klor Con PO SCH (12:59)
[2023-02-01] MEDS: COREG 12.5 MG PO SCH ×2 (12:59→21:52)
[2023-02-01] MEDS: Cozaar 50 MG PO SCH ×2 (12:59→21:51)
[2023-02-01] MEDS: NORVASC 5 MG PO SCH (12:59)
[2023-02-01] MEDS: Protonix 40MG Tablet PO SCH (13:00)
[2023-02-01] MEDS: FOLATE 1 MG PO SCH (13:00)
[2023-02-01] MEDS: THERAGRAN MULTIVITAMIN PO SCH (13:00)
[2023-02-01] MEDS: Pepcid 20 MG PO SCH (21:50)
[2023-02-01] MEDS: MELATONIN PO PRN (21:50)
[2023-02-01] MEDS: ZOCOR 20MG PO SCH (21:50)
[2023-02-01] MEDS ORDERED: MIRTAZAPINE PO SCH (22:00)
[2023-02-01] MEDS ORDERED: NON-FORMULARY ITEM (Carvedilol [Coreg] 25 MG Tablet) PO SCH (22:00)
[2023-02-01] MEDS ORDERED: NON-FORMULARY ITEM (Rosuvastatin Calcium [Rosuvastatin Calcium] 20 MG Tablet) PO SCH (22:00)
[2023-02-01] MEDS ORDERED: NON-FORMULARY ITEM (Losartan Potassium [Cozaar] 25 MG Tablet) PO SCH (22:00)
[2023-02-01] MEDS ORDERED: REMERON 30 MG PO SCH (22:00)
[2023-02-02] MEDS: solu-MEDROL 60 MG, Sterile H2O 10 ml 2 ML IV SCH ×8 (00:01→18:50)
[2023-02-02] MEDS: PROVENTIL 2.5 MG/3 ML NEB IH SCH ×6 (04:47→23:38)
[2023-02-02] MEDS: Advair Hfa 115/21 Common canister IH SCH ×2 (07:02→19:02)
[2023-02-02] MEDS: ROCEPHIN 1 Gm-D5w 50 ml Bag** 1 G/50 ML IVPB IV SCH (09:34)
[2023-02-02] MEDS ORDERED: NON-FORMULARY ITEM (Multivitamin [Multiple Vitamins] 1 EACH Tablet) PO SCH (10:00)
[2023-02-02] MEDS ORDERED: NON-FORMULARY ITEM (Potassium Chloride [Klor-Con] 20 MEQ Packet) PO SCH (10:00)
[2023-02-02] MEDS: Zithromax 500 MG/ 250 ML NaCl Premix 500 MG/250 ML IVPB IV SCH (10:19)
[2023-02-02] MEDS: THERAGRAN MULTIVITAMIN PO SCH (10:51)
[2023-02-02] MEDS: FOLATE 1 MG PO SCH (10:51)
[2023-02-02] MEDS: Klor Con PO SCH (10:51)
[2023-02-02] MEDS: Pepcid 20 MG PO SCH ×2 (10:51→22:03)
[2023-02-02] MEDS: Protonix 40MG Tablet PO SCH (10:52)
[2023-02-02] MEDS: NORVASC 5 MG PO SCH (12:55)
[2023-02-02] MEDS: Cozaar 50 MG PO SCH (12:56)
[2023-02-02] MEDS: COREG 12.5 MG PO SCH (12:56)
[2023-02-02] MEDS: ZOCOR 20MG PO SCH (21:58)
[2023-02-02] MEDS: REMERON 30 MG PO SCH (21:59)
[2023-02-02] MEDS: MELATONIN PO PRN (22:02)
[2023-02-02] MEDS: ULTRAM 50 MG PO PRN (22:03)
[2023-02-03] MEDS: Cozaar 50 MG PO SCH ×2 (00:21→09:14)
[2023-02-03] MEDS: COREG 12.5 MG PO SCH ×2 (00:21→09:13)
[2023-02-03] MEDS: solu-MEDROL 60 MG, Sterile H2O 10 ml 2 ML IV SCH ×4 (00:35→06:18)
[2023-02-03] MEDS: PROVENTIL 2.5 MG/3 ML NEB IH SCH ×3 (03:20→10:53)
[2023-02-03] MEDS ORDERED: solu-MEDROL ONE (06:02)
[2023-02-03] MEDS: Advair Hfa 115/21 Common canister IH SCH (06:31)
--- NOTE | 2023-02-03 07:47 | PCM.NOTE ---
Date and Time: 02/02/2346 Subjective Assessment: doing better, still c/o cough - Review of Systems Constitutional: No Fever, No Chills Eyes: No Symptoms Ears, Nose, & Throat: No Symptoms Respiratory: Cough, No Short Of Breath Cardiac: No Chest Pain, No Edema, No Syncope Abdominal/Gastrointestinal: No Abdominal Pain, No Nausea, No Vomiting, No Diarrhea Genitourinary Symptoms: No Dysuria Musculoskeletal: No Back Pain, No Neck Pain Skin: No Rash Neurological: No Dizziness, No Focal Weakness, No Sensory Changes Psychological: No Symptoms Endocrine: No Symptoms Hematologic/Lymphatic: No Symptoms Immunological/Allergic: No Symptoms Objective Exam General Appearance: no apparent distress, alert Neurologic Exam: alert, oriented x 3, cooperative, normal mood/affect, nml cerebellar function, sensation nml, No motor deficits Skin Exam: normal color, warm, dry Eye Exam: PERRL, EOMI, eyes nml inspection Ears, Nose, Throat Exam: normal ENT inspection, pharynx normal, moist mucous membranes Neck Exam: normal inspection, non-tender, supple, full range of motion Respiratory Exam: diminished breath sounds, wheezing, No respiratory distress Cardiovascular Exam: regular rate/rhythm, normal heart sounds Gastrointestinal/Abdomen Exam: soft, No tenderness, No mass Extremity Exam: normal inspection, normal range of motion Back Exam: normal inspection, normal range of motion, No CVA tenderness, No vertebral tenderness Pelvic Exam: deferred Rectal Exam: deferred OBJECTIVE DATA Vital Signs: Vital Signs - 24 hr Temp Pulse Resp BP Pulse Ox 02/03/23 06:31 55 L 18 96 02/03/23 04:00 97.6 F 59 L 18 130/63 93 L 02/03/23 03:20 55 L 16 97 02/02/23 23:35 97.8 F 60 17 100/53 97 02/02/23 19:51 97.5 F 70 17 111/54 95 02/02/23 19:02 66 18 95 02/02/23 15:29 98.7 F 65 18 115/56 92 L 02/02/23 15:24 68 18 97 02/02/23 12:54 116/58 02/02/23 10:59 64 18 95 02/02/23 10:49 64 108/56 Pain Assessment - Last Documented Pain Intensity 0 Intake and Output: Intake & Output 04/12/23 02/01/23 02/02/23 02/03/23 11:59 11:59 11:59 11:59 Intake Total 520 1360 720 Output Total 100 1100 600 Balance 420 260 120 Weight 46.5 kg 46.5 kg Radiology Exams: RAD/CHEST 1 VIEW (PORTABLE) Indication: Fever, cough, and short of breath. Comparison: November 23, 2022 Portable chest again demonstrates COPD with scattered fibrosis/scarring. No focal infiltrate, consolidation, or large effusion. 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 Bony thorax intact again with osteopenia and degenerative changes. Impression: Continued nonacute chest with chronic features. Multi-Disciplinary Progress Notes: Multi-Disciplinary Progress Notes 02/02/23 09:39 Case Management Note by Jennifer Laguerre S/W PATIENT- SHE CONTINUES TO PLAN TO DC HOME WITH [facility] AT THIS TIME. SHE DECLINES A REHAB STAY AT THIS TIME. [facility] HAS BEEN SET UP AND WILL BE NOTIFIED AT [place] Initialized on 02/02/23 09:39 - END OF NOTE Assessment/Plan (1) COPD exacerbation Current Visit: Yes Status: Acute Assessment & Plan: Chief Complaint Diagnosis COPD Eacerbation, SOB, Hypoxia, Fever Allergies Allergy/AdvReac Type Severity Reaction Status Date / Time iodine Allergy Severe Hives Verified 01/31/23 15:10 Vital Signs (Last 24 hours) Temp Pulse Resp BP Pulse Ox 02/03/23 06:31 55 L 18 96 02/03/23 04:00 97.6 F 59 L 18 130/63 93 L 02/03/23 03:20 55 L 16 97 02/02/23 23:35 97.8 F 60 17 100/53 97 02/02/23 19:51 97.5 F 70 17 111/54 95 02/02/23 19:02 66 18 95 02/02/23 15:29 98.7 F 65 18 115/56 92 L 02/02/23 15:24 68 18 97 02/02/23 12:54 116/58 02/02/23 10:59 64 18 95 02/02/23 10:49 64 108/56 Home Medications Medication Instructions Recorded Confirmed Last Taken Type Famotidine 20 mg [Pepcid 20 20 mg PO BID 01/31/23 01/31/23 01/31/23 History MG] Folic Acid 1 mg [Folate 1 mg] 1 mg PO DAILY 01/31/23 01/31/23 01/31/23 History Mirtazapine [Remeron] 15 mg PO HS 01/31/23 01/31/23 01/30/23 History Rosuvastatin Calcium 20 mg PO HS 01/31/23 01/31/23 01/30/23 History Tramadol HCl 50 mg [Ultram 50 50 mg PO TIDPRN PRN 01/31/23 01/31/23 Unknown History mg] Current Medications Generic Name Dose Route Start Last Admin Trade Name Freq PRN Reason Stop Dose Admin Albuterol Sulfate 2.5 mg 01/31/23 19:00 02/03/23 06:31 Albuterol Sulfate 2.5 Mg/3 Ml Neb IH 03/02/23 18:59 2.5 mg Q4HRT MICKY Administration Amlodipine Besylate 5 mg 02/01/23 12:00 02/02/23 12:55 Amlodipine Besylate 5 Mg Tablet PO 03/03/23 11:59 5 mg DAILY MICKY Administration Carvedilol 25 mg 02/01/23 11:30 02/03/23 00:21 Carvedilol 12.5 Mg Tablet PO 03/03/23 11:29 Not Given BID MICKY Methylprednisolone Sodium 0 mg 01/31/23 18:00 02/03/23 06:18 Succinate 60 mg/ Sterile Water IV 03/02/23 17:59 60 mg 2 ml Q6HT MICKY Administration Famotidine 20 mg 02/01/23 22:00 02/02/23 22:03 Famotidine 20 Mg Tablet PO 03/03/23 21:59 20 mg BID MICKY Administration Folic Acid 1 mg 02/01/23 11:30 02/02/23 10:51 Folic Acid 1 Mg Tablet PO 03/03/23 11:29 1 mg DAILY MICKY Administration Ceftriaxone Sodium/Dextrose 1 g in 50 mls @ 100 mls/hr 02/01/23 10:00 02/02/23 09:34 Rocephin 1 Gm-D5w 50 Ml Bag IV 02/04/23 09:59 100 mls/hr Q24H10 MICKY Administration Azithromycin 500 mg in 250 mls @ 250 mls/hr 02/01/23 10:00 02/02/23 10:19 Zithromax 500 Mg/ 250 Ml Nacl Premix IV 03/03/23 09:59 250 mls/hr Q24H10 MICKY Administration Losartan Potassium 25 mg 02/01/23 11:30 02/03/23 00:21 Losartan Potassium 50 Mg Tablet PO 03/03/23 11:29 Not Given BID MICKY Melatonin 3 mg 02/01/23 11:20 02/02/23 22:02 Melatonin 3 Mg Tablet PO 03/03/23 11:19 3 mg HS PRN Administration INSOMNIA Mirtazapine 15 mg 01/31/23 22:47 02/02/23 21:59 Mirtazapine 30 Mg Tablet PO 03/02/23 21:59 15 mg HS MICKY Administration Multivitamins Therapeutic 1 tab 02/01/23 11:30 02/02/23 10:51 Multivitamins,Therapeutic 1 Tab Tab PO 03/03/23 11:29 1 tab DAILY MICKY Administration Ondansetron HCl 4 mg 02/01/23 12:17 02/01/23 12:28 Ondansetron Hcl 4 Mg/2 Ml Vial IV 03/03/23 12:16 4 mg Q4H PRN PRN Administration NAUSEA/VOMITING Pantoprazole Sodium 40 mg 02/01/23 11:30 02/02/23 10:52 Protonix (Pantoprazole) 40 Mg Tablet PO 03/03/23 11:29 40 mg QAM MICKY Administration Polyethylene Glycol 17 gm 02/01/23 11:20 Polyethylene Glycol 3350 17 Gm Packet PO 03/03/23 11:19 DAILY PRN PRN CONSTIPATION Potassium Chloride 20 meq 02/01/23 11:30 02/02/23 10:51 Potassium Chloride Tab 10 Meq Tab PO 03/03/23 11:29 20 meq DAILY MICKY Administration Fluticasone/Salmeterol 2 puff 01/31/23 19:00 02/03/23 06:31 Fluticasone/Salmeterol 115/21 - 120 Puff Common Canister IH 03/02/23 18:59 2 puff BIDRT MICKY Administration Simvastatin 40 mg 02/01/23 22:00 02/02/23 21:58 Simvastatin 20 Mg Tablet PO 03/03/23 21:59 40 mg HS MICKY Administration Tramadol HCl 50 mg 01/31/23 22:27 02/02/23 22:03 Tramadol Hcl 50 Mg Tablet PO 03/02/23 22:26 50 mg TID PRN PRN Administration PAIN Discontinued Medications Generic Name Dose Route Start Last Admin Trade Name Jacqueline PRN Reason Stop Dose Admin Albuterol/Ipratropium Confirm 01/31/23 15:12 Ipratropium/Albuterol Sulfate 3 Ml Ampul.Neb Administered 01/31/23 15:13 Dose 3 ml IH .STK-MED ONE Albuterol/Ipratropium 3 ml 01/31/23 15:29 01/31/23 15:30 Ipratropium/Albuterol Sulfate 3 Ml Ampul.Neb IH 01/31/23 15:30 3 ml STAT ONE Administration Methylprednisolone Sodium 0 mg 01/31/23 17:27 01/31/23 17:42 Succinate 125 mg/ Sterile IV 01/31/23 17:28 125 mg Water 2 ml STAT ONE Administration Ceftriaxone Sodium/Dextrose 2 g in 50 mls @ 100 mls/hr 01/31/23 17:22 01/31/23 17:29 Rocephin 2 Gm-D5w 50ml Bag IV 01/31/23 17:51 100 mls/hr STAT STA 100 mls/hr Administration Azithromycin 500 mg in 250 mls @ 250 mls/hr 01/31/23 17:22 01/31/23 22:21 Zithromax 500 Mg/ 250 Ml Nacl Premix IV 01/31/23 18:21 Not Given STAT STA Ceftriaxone Sodium/Dextrose Confirm 01/31/23 17:28 Rocephin 2 Gm-D5w 50ml Bag Administered 01/31/23 17:29 Dose 2 g in 50 mls @ ud IV .STK-MED ONE Methylprednisolone Sodium Succinate Confirm 01/31/23 17:42 Methylprednis Sod Succ 125 Mg/2 Ml Vial Administered 01/31/23 17:43 Dose 125 mg .ROUTE .STK-MED ONE Methylprednisolone Sodium Succinate Confirm 01/31/23 22:43 Methylprednis Sod Succ 125 Mg/2 Ml Vial Administered 01/31/23 22:44 Dose 125 mg .ROUTE .STK-MED ONE Methylprednisolone Sodium Succinate Confirm 02/01/23 06:52 Methylprednis Sod Succ 125 Mg/2 Ml Vial Administered 02/01/23 06:53 Dose 125 mg .ROUTE .STK-MED ONE Methylprednisolone Sodium Succinate Confirm 02/03/23 06:02 Methylprednis Sod Succ 125 Mg/2 Ml Vial Administered 02/03/23 06:03 Dose 125 mg .ROUTE .STK-MED ONE Mirtazapine Confirm 01/31/23 22:44 Mirtazapine 30 Mg Tablet Administered 01/31/23 22:45 Dose 30 mg .ROUTE .STK-MED ONE Mirtazapine 15 mg 02/01/23 22:00 Mirtazapine 30 Mg Tablet PO 03/03/23 21:59 HS MICKY Sterile Water Confirm 01/31/23 17:42 Water For Injection,Sterile 10 Ml Vial Administered 01/31/23 17:43 Dose 10 ml IJ .STK-MED ONE Sterile Water Confirm 01/31/23 22:44 Water For Injection,Sterile 10 Ml Vial Administered 01/31/23 22:45 Dose 10 ml IJ .STK-MED ONE Sterile Water Confirm 02/01/23 06:52 Water For Injection,Sterile 10 Ml Vial Administered 02/01/23 06:53 Dose 10 ml IJ .STK-MED ONE Intake & Output (Last 24 hours) 01/31/23 02/01/23 02/02/23 02/03/23 11:59 11:59 11:59 11:59 Intake Total 520 1360 720 Output Total 100 1100 600 Balance 420 260 120 Weight 46.5 kg 46.5 kg Microbiology Results (Last 24 hours) 01/31/23 16:55 Blood Blood Culture Gram Stain - Pending 01/31/23 16:55 Blood Blood Culture - Preliminary NO GROWTH TO DATE 01/31/23 15:25 Blood Blood Culture Gram Stain - Pending 01/31/23 15:25 Blood Blood Culture - Preliminary NO GROWTH TO DATE Orders (Last 24 hours) Category Date Time Status Methylprednis Sod Succ 125 mg* [solu-MEDROL] Med 02/03/23 06:02 Discontinued 125 mg .ROUTE .STK-MED ONE Patient Care Notes (Last 24 hours) 02/02/23 12:30 (created 02/02/23 15:13) Nursing Note by Joi Tompkins Patient said she is coughing more today but is having a harder time "coughing anything up." Initialized on 02/02/23 15:13 - END OF NOTE 02/02/23 09:39 Case Management Note by Jennifer Laguerre S/W PATIENT- SHE CONTINUES TO PLAN TO DC HOME WITH [facility] AT THIS TIME. SHE DECLINES A REHAB STAY AT THIS TIME. [facility] HAS BEEN SET UP AND WILL BE NOTIFIED AT [place] Initialized on 02/02/23 09:39 - END OF NOTE Code(s): J44.1 - CHRONIC OBSTRUCTIVE PULMONARY DISEASE W (ACUTE) EXACERBATION
--- NOTE | 2023-02-03 08:46 | PCM.DS ---
Discharge Summary Date of Admission: 02/01/23 10:39 Admitting Physician: MARIUSZ LINARES Primary Care Provider: MARIUSZ LINARES Allergies Allergies iodine Allergy (Severe, Verified 01/31/23 15:10) [facility] Summary - Hospital Course Hospital Course: Last Vital Signs Temp 97.9 F 02/03/23 07:48 Pulse 58 L 02/03/23 07:48 Resp 16 02/03/23 07:48 BP 128/65 02/03/23 07:48 Pulse Ox 94 L 02/03/23 07:48 Allergies iodine Allergy (Severe, Verified 01/31/23 15:10) [facility] Active Medications Albuterol Sulfate (Albuterol Sulfate 2.5 Mg/3 Ml Neb) 2.5 mg IH Q4HRT MICKY Stop: 03/02/23 18:59 Last Admin: 02/03/23 06:31 Dose: 2.5 mg Amlodipine Besylate (Amlodipine Besylate 5 Mg Tablet) 5 mg PO DAILY MICKY Stop: 03/03/23 11:59 Last Admin: 02/02/23 12:55 Dose: 5 mg Carvedilol (Carvedilol 12.5 Mg Tablet) 25 mg PO BID MICKY Stop: 03/03/23 11:29 Last Admin: 02/03/23 00:21 Dose: Not Given Methylprednisolone Sodium Succinate 60 mg/ Sterile Water 2 ml 0 mg IV Q6HT MICKY Stop: 03/02/23 17:59 Last Admin: 02/03/23 06:18 Dose: 60 mg Famotidine (Famotidine 20 Mg Tablet) 20 mg PO BID MICKY Stop: 03/03/23 21:59 Last Admin: 02/02/23 22:03 Dose: 20 mg Folic Acid (Folic Acid 1 Mg Tablet) 1 mg PO DAILY MICKY Stop: 03/03/23 11:29 Last Admin: 02/02/23 10:51 Dose: 1 mg Ceftriaxone Sodium/Dextrose (Rocephin 1 Gm-D5w 50 Ml Bag) 1 g in 50 mls @ 100 mls/hr IV Q24H10 MICKY Stop: 02/04/23 09:59 Last Admin: 02/02/23 09:34 Dose: 100 mls/hr Azithromycin (Zithromax 500 Mg/ 250 Ml Nacl Premix) 500 mg in 250 mls @ 250 mls/hr IV Q24H10 MICKY Stop: 03/03/23 09:59 Last Admin: 02/02/23 10:19 Dose: 250 mls/hr Losartan Potassium (Losartan Potassium 50 Mg Tablet) 25 mg PO BID [facility] Stop: 03/03/23 11:29 Last Admin: 02/03/23 00:21 Dose: Not Given Melatonin (Melatonin 3 Mg Tablet) 3 mg PO HS PRN PRN Reason: INSOMNIA Stop: 03/03/23 11:19 Last Admin: 02/02/23 22:02 Dose: 3 mg Mirtazapine (Mirtazapine 30 Mg Tablet) 15 mg PO HS [facility] Stop: 03/02/23 21:59 Last Admin: 02/02/23 21:59 Dose: 15 mg Multivitamins Therapeutic (Multivitamins,Therapeutic 1 Tab Tab) 1 tab PO DAILY [facility] Stop: 03/03/23 11:29 Last Admin: 02/02/23 10:51 Dose: 1 tab Ondansetron HCl (Ondansetron Hcl 4 Mg/2 Ml Vial) 4 mg IV Q4H PRN PRN PRN Reason: NAUSEA/VOMITING Stop: 03/03/23 12:16 Last Admin: 02/01/23 12:28 Dose: 4 mg Pantoprazole Sodium (Protonix (Pantoprazole) 40 Mg Tablet) 40 mg PO QAM [facility] Stop: 03/03/23 11:29 Last Admin: 02/02/23 10:52 Dose: 40 mg Polyethylene Glycol (Polyethylene Glycol 3350 17 Gm Packet) 17 gm PO DAILY PRN PRN PRN Reason: CONSTIPATION Stop: 03/03/23 11:19 Potassium Chloride (Potassium Chloride Tab 10 Meq Tab) 20 meq PO DAILY MICKY Stop: 03/03/23 11:29 Last Admin: 02/02/23 10:51 Dose: 20 meq Fluticasone/Salmeterol (Fluticasone/Salmeterol 115/21 - 120 Puff Common Canister) 2 puff IH BIDRT [facility] Stop: 03/02/23 18:59 Last Admin: 02/03/23 06:31 Dose: 2 puff Simvastatin (Simvastatin 20 Mg Tablet) 40 mg PO HS [facility] Stop: 03/03/23 21:59 Last Admin: 02/02/23 21:58 Dose: 40 mg Tramadol HCl (Tramadol Hcl 50 Mg Tablet) 50 mg PO TID PRN PRN PRN Reason: PAIN Stop: 03/02/23 22:26 Last Admin: 02/02/23 22:03 Dose: 50 mg Intake & Output 02/02/23 02/03/23 11:59 11:59 Intake Total 1360 720 Output Total 1100 600 Balance 260 120 Weight 46.5 kg 46.4 kg Microbiology 01/31/23 16:55 Blood Blood Culture - Preliminary NO GROWTH TO DATE 01/31/23 15:25 Blood Blood Culture - Preliminary NO GROWTH TO DATE Patient is feeling much better. Patient is denying any shortness of breath chest pain. Patient is eating well. Patient already have a home health. When patient was asked she was not sure so we will make sure that patient does have a follow-up with home health care. Patient is advised to follow-up with Dr. Hood in 1 week. - Vitals & Intake/Output Vital Signs: Vital Signs Temperature 97.9 F 02/03/23 07:48 Pulse Rate 58 L 02/03/23 07:48 Respiratory Rate 16 02/03/23 07:48 Blood Pressure 128/65 02/03/23 07:48 O2 Sat by Pulse Oximetry 94 L 02/03/23 07:48 Intake & Output: Intake & Output 01/31/23 02/01/23 02/02/23 02/03/23 11:59 11:59 11:59 11:59 Intake Total 520 1360 720 Output Total 100 1100 600 Balance 420 260 120 Weight 46.5 kg 46.5 kg 46.4 kg - Lab Result Diagrams: 02/01/23 04:58 02/01/23 04:58 Micro Results-Entire Visit: Microbiology 01/31/23 16:55 Blood Culture - Preliminary Blood NO GROWTH TO DATE 01/31/23 15:25 Blood Culture - Preliminary Blood NO GROWTH TO DATE - Procedures and Test Procedures and Tests throughout Hospitalization: Therapy Orders & Screens 01/31/23 15:31 Respiratory Therapy Assessment DAILY Comment: 01/31/23 18:06 Respiratory Therapy Assessment DAILY Comment: Diagnosis: COPD exacerbation 01/31/23 18:07 Oxygen Nasal Cannula 2 lpm Comment: Diagnosis: COPD exacerbation 01/31/23 19:00 Respiratory MDI BID Comment: Diagnosis: COPD exacerbation 02/01/23 12:21 EKG OM.NOW Comment: Diagnosis: c/o shortness of breath for 2-3 days 02/01/23 15:11 Flutter Therapy UD Comment: Diagnosis: c/o shortness of breath for 2-3 days Discharge Exam General Appearance: no apparent distress, alert Neurologic Exam: alert, oriented x 3, cooperative, normal mood/affect, nml cerebellar function, sensation nml, No motor deficits Eye Exam: PERRL, EOMI, eyes nml inspection Ears, Nose, Throat Exam: normal ENT inspection, pharynx normal, moist mucous membranes Neck Exam: normal inspection, non-tender, supple, full range of motion Respiratory Exam: diminished breath sounds, No respiratory distress Cardiovascular Exam: regular rate/rhythm, normal heart sounds Gastrointestinal/Abdomen Exam: soft, No tenderness, No mass Pelvic Exam: deferred Rectal Exam: deferred Back Exam: normal inspection, normal range of motion, No CVA tenderness, No vertebral tenderness Extremity Exam: normal inspection, normal range of motion Skin Exam: normal color, warm, dry Final Diagnosis/Problem List - Final Discharge Diagnosis/Problem (1) COPD exacerbation Current Visit: Yes Status: Resolved Assessment & Plan: Chief Complaint Diagnosis COPD Eacerbation, SOB, Hypoxia, Fever Allergies Allergy/AdvReac Type Severity Reaction Status Date / Time iodine Allergy Severe Hives Verified 01/31/23 15:10 Vital Signs (Last 24 hours) Temp Pulse Resp BP Pulse Ox 02/03/23 07:48 97.9 F 58 L 16 128/65 94 L 02/03/23 06:31 55 L 18 96 02/03/23 04:00 97.6 F 59 L 18 130/63 93 L 02/03/23 03:20 55 L 16 97 02/02/23 23:35 97.8 F 60 17 100/53 97 02/02/23 19:51 97.5 F 70 17 111/54 95 02/02/23 19:02 66 18 95 02/02/23 15:29 98.7 F 65 18 115/56 92 L 02/02/23 15:24 68 18 97 02/02/23 12:54 116/58 02/02/23 10:59 64 18 95 02/02/23 10:49 64 108/56 Home Medications Medication Instructions Recorded Confirmed Last Taken Type Famotidine 20 mg [Pepcid 20 20 mg PO BID 01/31/23 01/31/23 01/31/23 History MG] Folic Acid 1 mg [Folate 1 mg] 1 mg PO DAILY 01/31/23 01/31/23 01/31/23 History Mirtazapine [Remeron] 15 mg PO HS 01/31/23 01/31/23 01/30/23 History Rosuvastatin Calcium 20 mg PO HS 01/31/23 01/31/23 01/30/23 History Tramadol HCl 50 mg [Ultram 50 50 mg PO TIDPRN PRN 01/31/23 01/31/23 Unknown History mg] Current Medications Generic Name Dose Route Start Last Admin Trade Name Freq PRN Reason Stop Dose Admin Albuterol Sulfate 2.5 mg 01/31/23 19:00 02/03/23 06:31 Albuterol Sulfate 2.5 Mg/3 Ml Neb IH 03/02/23 18:59 2.5 mg Q4HRT MICKY Administration Amlodipine Besylate 5 mg 02/01/23 12:00 02/02/23 12:55 Amlodipine Besylate 5 Mg Tablet PO 03/03/23 11:59 5 mg DAILY MICKY Administration Carvedilol 25 mg 02/01/23 11:30 02/03/23 00:21 Carvedilol 12.5 Mg Tablet PO 03/03/23 11:29 Not Given BID MICKY Methylprednisolone Sodium 0 mg 01/31/23 18:00 02/03/23 06:18 Succinate 60 mg/ Sterile Water IV 03/02/23 17:59 60 mg 2 ml Q6HT MICKY Administration Famotidine 20 mg 02/01/23 22:00 02/02/23 22:03 Famotidine 20 Mg Tablet PO 03/03/23 21:59 20 mg BID MICKY Administration Folic Acid 1 mg 02/01/23 11:30 02/02/23 10:51 Folic Acid 1 Mg Tablet PO 03/03/23 11:29 1 mg DAILY MICKY Administration Ceftriaxone Sodium/Dextrose 1 g in 50 mls @ 100 mls/hr 02/01/23 10:00 02/02/23 09:34 Rocephin 1 Gm-D5w 50 Ml Bag IV 02/04/23 09:59 100 mls/hr Q24H10 MICKY Administration Azithromycin 500 mg in 250 mls @ 250 mls/hr 02/01/23 10:00 02/02/23 10:19 Zithromax 500 Mg/ 250 Ml Nacl Premix IV 03/03/23 09:59 250 mls/hr Q24H10 MICKY Administration Losartan Potassium 25 mg 02/01/23 11:30 02/03/23 00:21 Losartan Potassium 50 Mg Tablet PO 03/03/23 11:29 Not Given BID MICKY Melatonin 3 mg 02/01/23 11:20 02/02/23 22:02 Melatonin 3 Mg Tablet PO 03/03/23 11:19 3 mg HS PRN Administration INSOMNIA Mirtazapine 15 mg 01/31/23 22:47 02/02/23 21:59 Mirtazapine 30 Mg Tablet PO 03/02/23 21:59 15 mg HS MICKY Administration Multivitamins Therapeutic 1 tab 02/01/23 11:30 02/02/23 10:51 Multivitamins,Therapeutic 1 Tab Tab PO 03/03/23 11:29 1 tab DAILY MICKY Administration Ondansetron HCl 4 mg 02/01/23 12:17 02/01/23 12:28 Ondansetron Hcl 4 Mg/2 Ml Vial IV 03/03/23 12:16 4 mg Q4H PRN PRN Administration NAUSEA/VOMITING Pantoprazole Sodium 40 mg 02/01/23 11:30 02/02/23 10:52 Protonix (Pantoprazole) 40 Mg Tablet PO 03/03/23 11:29 40 mg QAM MICKY Administration Polyethylene Glycol 17 gm 02/01/23 11:20 Polyethylene Glycol 3350 17 Gm Packet PO 03/03/23 11:19 DAILY PRN PRN CONSTIPATION Potassium Chloride 20 meq 02/01/23 11:30 02/02/23 10:51 Potassium Chloride Tab 10 Meq Tab PO 03/03/23 11:29 20 meq DAILY MICKY Administration Fluticasone/Salmeterol 2 puff 01/31/23 19:00 02/03/23 06:31 Fluticasone/Salmeterol 115/21 - 120 Puff Common Canister IH 03/02/23 18:59 2 puff BIDRT MICKY Administration Simvastatin 40 mg 02/01/23 22:00 02/02/23 21:58 Simvastatin 20 Mg Tablet PO 03/03/23 21:59 40 mg HS MICKY Administration Tramadol HCl 50 mg 01/31/23 22:27 02/02/23 22:03 Tramadol Hcl 50 Mg Tablet PO 03/02/23 22:26 50 mg TID PRN PRN Administration PAIN Discontinued Medications Generic Name Dose Route Start Last Admin Trade Name Jacqueline PRN Reason Stop Dose Admin Albuterol/Ipratropium Confirm 01/31/23 15:12 Ipratropium/Albuterol Sulfate 3 Ml Ampul.Neb Administered 01/31/23 15:13 Dose 3 ml IH .STK-MED ONE Albuterol/Ipratropium 3 ml 01/31/23 15:29 01/31/23 15:30 Ipratropium/Albuterol Sulfate 3 Ml Ampul.Neb IH 01/31/23 15:30 3 ml STAT ONE Administration Methylprednisolone Sodium 0 mg 01/31/23 17:27 01/31/23 17:42 Succinate 125 mg/ Sterile IV 01/31/23 17:28 125 mg Water 2 ml STAT ONE Administration Ceftriaxone Sodium/Dextrose 2 g in 50 mls @ 100 mls/hr 01/31/23 17:22 01/31/23 17:29 Rocephin 2 Gm-D5w 50ml Bag IV 01/31/23 17:51 100 mls/hr STAT STA 100 mls/hr Administration Azithromycin 500 mg in 250 mls @ 250 mls/hr 01/31/23 17:22 01/31/23 22:21 Zithromax 500 Mg/ 250 Ml Nacl Premix IV 01/31/23 18:21 Not Given STAT STA Ceftriaxone Sodium/Dextrose Confirm 01/31/23 17:28 Rocephin 2 Gm-D5w 50ml Bag Administered 01/31/23 17:29 Dose 2 g in 50 mls @ ud IV .STK-MED ONE Methylprednisolone Sodium Succinate Confirm 01/31/23 17:42 Methylprednis Sod Succ 125 Mg/2 Ml Vial Administered 01/31/23 17:43 Dose 125 mg .ROUTE .STK-MED ONE Methylprednisolone Sodium Succinate Confirm 01/31/23 22:43 Methylprednis Sod Succ 125 Mg/2 Ml Vial Administered 01/31/23 22:44 Dose 125 mg .ROUTE .STK-MED ONE Methylprednisolone Sodium Succinate Confirm 02/01/23 06:52 Methylprednis Sod Succ 125 Mg/2 Ml Vial Administered 02/01/23 06:53 Dose 125 mg .ROUTE .STK-MED ONE Methylprednisolone Sodium Succinate Confirm 02/03/23 06:02 Methylprednis Sod Succ 125 Mg/2 Ml Vial Administered 02/03/23 06:03 Dose 125 mg .ROUTE .STK-MED ONE Mirtazapine Confirm 01/31/23 22:44 Mirtazapine 30 Mg Tablet Administered 01/31/23 22:45 Dose 30 mg .ROUTE .STK-MED ONE Mirtazapine 15 mg 02/01/23 22:00 Mirtazapine 30 Mg Tablet PO 03/03/23 21:59 HS MICKY Sterile Water Confirm 01/31/23 17:42 Water For Injection,Sterile 10 Ml Vial Administered 01/31/23 17:43 Dose 10 ml IJ .STK-MED ONE Sterile Water Confirm 01/31/23 22:44 Water For Injection,Sterile 10 Ml Vial Administered 01/31/23 22:45 Dose 10 ml IJ .STK-MED ONE Sterile Water Confirm 02/01/23 06:52 Water For Injection,Sterile 10 Ml Vial Administered 02/01/23 06:53 Dose 10 ml IJ .STK-MED ONE Intake & Output (Last 24 hours) 01/31/23 02/01/23 02/02/23 02/03/23 11:59 11:59 11:59 11:59 Intake Total 520 1360 720 Output Total 100 1100 600 Balance 420 260 120 Weight 46.5 kg 46.5 kg 46.4 kg Microbiology Results (Last 24 hours) 01/31/23 16:55 Blood Blood Culture Gram Stain - Pending 01/31/23 16:55 Blood Blood Culture - Preliminary NO GROWTH TO DATE 01/31/23 15:25 Blood Blood Culture Gram Stain - Pending 01/31/23 15:25 Blood Blood Culture - Preliminary NO GROWTH TO DATE Orders (Last 24 hours) Category Date Time Status Methylprednis Sod Succ 125 mg* [solu-MEDROL] Med 02/03/23 06:02 Discontinued 125 mg .ROUTE .STK-MED ONE Patient Care Notes (Last 24 hours) 02/02/23 12:30 (created 02/02/23 15:13) Nursing Note by Joi Tompkins Patient said she is coughing more today but is having a harder time "coughing anything up." Initialized on 02/02/23 15:13 - END OF NOTE 02/02/23 09:39 Case Management Note by Jennifer Laguerre S/W PATIENT- SHE CONTINUES TO PLAN TO DC HOME WITH [facility] AT THIS TIME. SHE DECLINES A REHAB STAY AT THIS TIME. [facility] HAS BEEN SET UP AND WILL BE NOTIFIED AT ID Initialized on 02/02/23 09:39 - END OF NOTE Patient is feeling much better. Patient is denying any shortness of breath c hest pain. Patient is eating well. Patient already have a home health. When patient was asked she was not sure so we will make sure that patient does have a follow-up with home health care. Patient is advised to follow-up with Dr. Hood in 1 week. Code(s): J44.1 - CHRONIC OBSTRUCTIVE PULMONARY DISEASE W (ACUTE) EXACERBATION - Discharge Discharge Date: 02/03/23 Disposition: Home, Self-Care Condition: Stable Prescriptions: New Cephalexin Mh 500 mg [Keflex 500 mg] 500 mg PO Q6H #30 cap Continue Potassium Chloride [Klor-Con] 20 meq PO DAILY Losartan Potassium [Cozaar] 25 mg PO BID Carvedilol [Coreg] 25 mg PO BID Multivitamin [Multiple Vitamins] 1 each PO DAILY PANTOPRAZOLE 40 mg Tablet [Protonix 40MG Tablet] 40 mg PO QAM #30 tab Albuterol Sulfate [Proair Respiclick] 2 puff IH Q6HPRN PRN PRN Reason: Shortness Of Breath/Wheezing Polyethylene Glycol 3350 17 gm [Miralax Powder 17GM PACKET] 17 gm PO DAILY PRN PRN PRN Reason: Constipation Melatonin 3 mg PO HS PRN PRN Reason: Insomnia Acetaminophen 325 mg [Tylenol 325 mg] 650 mg PO Q4H PRN PRN tablet PRN Reason: Pain And/Or Fever Fluticasone/Salmeterol 115/21 [Advair Hfa 115/21 Common canister*] 1 puff IH BIDRT Amlodipine Besylate [Norvasc] 5 mg PO DAILY Albuterol/Ipratropium 3ml Neb* [DUONEB 0.5-3 MG/3 ml Neb] 1 neb IH Q4HPRN PRN PRN Reason: Shortness Of Breath/Wheezing Famotidine 20 mg [Pepcid 20 MG] 20 mg PO BID Tramadol HCl 50 mg [Ultram 50 mg] 50 mg PO TIDPRN PRN PRN Reason: Pain Mirtazapine [Remeron] 15 mg PO HS Folic Acid 1 mg [Folate 1 mg] 1 mg PO DAILY Rosuvastatin Calcium 20 mg PO HS Instructions: Exacerbation of COPD (DC), Pulmonary Rehabilitation, Risk Factors for COPD, Breathing Exercises Additional Instructions: [facility] BEEN SET UP. THEY WILL CONTACT YOU TO ARRANGE AN APPOINTMENT. YOU CAN CONTACT THEM AT [phone] FOR ANY QUESTIONS/CONCERNS Discharge/Care Plan LEXUS DHILLON was discharged on 02/03/23 . The patient was counseled regarding Diagnosis,Lab results, Imaging studies, need for follow up and when to return to the Emergency Room. Prescriptions given: Discharge Note I have spoken with the patient and/or caregivers. I have explained the patient's condition, diagnosis and treatment plan based on the information available to me at this time. I have answered the patient's and/or caregiver's questions and addressed any concerns. The patient and/or caregivers have as good understanding of the patient's diagnosis, condition and treatment plan as can be expected at this point. The vital signs have been stable. The patient's condition is stable and appropriate for discharge from hospital. The patient will pursue further outpatient evaluation with the primary care physician or other designated or consulting physician as outlined in the discharge instructions. The patient and/or caregivers are agreeable to this plan of care and follow-up instructions have been explained in detail. The patient and/or caregivers have received these instruction. The patient/and or caregivers are aware that any significant change in condition or worsening of symptoms should prompt an immediate return to this or the closest emergency department or call 911. Follow up with: MARIUSZ LINARES MD [Primary Care Provider] - 02/09/23 10:30 am ([facility])
[2023-02-03] MEDS: ROCEPHIN 1 Gm-D5w 50 ml Bag** 1 G/50 ML IVPB IV SCH (09:08)
[2023-02-03] MEDS: Klor Con PO SCH (09:13)
[2023-02-03] MEDS: NORVASC 5 MG PO SCH (09:13)
[2023-02-03] MEDS: Pepcid 20 MG PO SCH (09:13)
[2023-02-03] MEDS: THERAGRAN MULTIVITAMIN PO SCH (09:14)
[2023-02-03] MEDS: FOLATE 1 MG PO SCH (09:14)
[2023-02-03] MEDS: Protonix 40MG Tablet PO SCH (09:14)
[2023-02-03] MEDS: Zithromax 500 MG/ 250 ML NaCl Premix 500 MG/250 ML IVPB IV SCH (09:15)
[2023-02-03 10:55] VITALS: O2SAT 95
[2023-02-03 11:44] VITALS: BP 106/51; PULSE 65
== END 2023-02-03 11:59 | disposition home or self-care (01) | DRG 192 ==
LOC: ED 15:04 → MED SURG 17:52 → OBSVTOIN 02-01 10:39
PROVIDERS: ADMIT General Practice; ATTEND General Practice
DX: J44.1 Chronic obstructive pulmonary disease with (acute) exacerbation (principal); R50.9 Fever, unspecified; I10 Essential (primary) hypertension; E78.5 Hyperlipidemia, unspecified; I25.10 Atherosclerotic heart disease of native coronary artery without angina pectoris; Z79.899 Other long term (current) drug therapy; Z20.828 Contact with and (suspected) exposure to other viral communicable diseases; Z95.1 Presence of aortocoronary bypass graft
CPT/HCPCS: 0241U; 36000; 36415; 71045; 80053; 85025; 85027; 87040; 93005; 93041; 93268; 94640; 94667; 94668; 94760; 94762; 96365; 96374; 99285; G0378; J0456; J0696; J2405; J2930; J7609; A9270-GY

== ENCOUNTER 2023-04-18 11:17 | Observation (INO) | payer MEDICARE, BC ==
[2023-04-18] MEDS ORDERED: Sodium Chloride 0.9% 1000 ML 1,000 ML IV STA (11:26)
[2023-04-18] MEDS ORDERED: Zofran 4 MG/2 ML VIAL IV ONE (11:26)
--- NOTE | 2023-04-18 11:55 | ERPHSYRPT ---
- History of Present Illness Source: patient, other (Daughter) Exam Limitations: no limitations Patient Subjective Stated Complaint: C/O "dehydration". Patient states she went to Dr. Linares's office this am for a routine visit and was explaining to him that she has been vomiting for the past few day. Patient states that Dr. Linares told her she was probably dehydrated and to go to the ER. Triage Nursing Assessment: Patient brought back to ER in a W/C. She was able to transfer self from chair to bed with stand by assist. She is wearing oxygen at 3L per N/C upon arrival; wears this continuously at home. She is alert and oriented. Pale. Some coughing present but patient indicates this is not new. Physician History: 77 yo WF w N/V/lethargy/worsening cough/resolved fever/diarrhea/dysuria/infrequency x 2 days. Pt denies chest pain/abdominal pain/focal weakness. She is on 3L O2 NC at home. PMH includes HTN/Hyperlipidemia/CABG/1ppd smoker until age 57. Timing/Duration: day(s) (2 days) Severity: moderate Modifying Factors: Improves With: movement Associated Symptoms: nausea, vomiting, cough, fever Allergies/Adverse Reactions: iodine Allergy (Severe, Verified 04/18/23 11:24) Hives Home Medications: Carvedilol [Coreg] 25 mg PO BID 08/06/20 [History] Losartan Potassium [Cozaar] 25 mg PO BID 08/06/20 [History] Potassium Chloride [Klor-Con] 20 meq PO DAILY 08/06/20 [History] Multivitamin [Multiple Vitamins] 1 each PO DAILY 05/23/21 [History] Albuterol Sulfate [Proair Respiclick] 2 puff IH Q6HPRN PRN 01/08/22 [History] Melatonin 3 mg PO HS PRN 01/08/22 [History] Albuterol/Ipratropium 3ml Neb* [DUONEB 0.5-3 MG/3 ml Neb] 1 neb IH Q4HPRN PRN 05/24/22 [History] Amlodipine Besylate [Norvasc] 5 mg PO DAILY 05/24/22 [History] Fluticasone/Salmeterol 115/21 [Advair Hfa 115/21 Common canister*] 1 puff IH BIDRT 05/24/22 [History] Famotidine 20 mg [Pepcid 20 MG] 20 mg PO BID 01/31/23 [History] Mirtazapine [Remeron] 15 mg PO HS 01/31/23 [History] Rosuvastatin Calcium 20 mg PO HS 01/31/23 [History] Aspirin EC 81 mg [Ecotrin 81 mg] 1 tab PO HS 04/18/23 [History] Hx Tetanus, Diphtheria Vaccination/Date Given: Yes Hx Influenza Vaccination/Date Given: Yes Hx Pneumococcal Vaccination/Date Given: Yes Immunizations Up to Date: Yes Travel Risk - International Travel Have you traveled outside of the country in past 3 weeks: No - Coronavirus Screening Are you exhibiting any of the following symptoms?: No Close contact with a COVID-19 positive Pt in past 14-21 Days: No - Vaccine Status Have you recieved a Covid-19 vaccination: Yes 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 - Vaccination Dates Date of 2cond Vaccination (if applicable): unknown - Review of Systems Constitutional: No Symptoms, Fever, Chills, Fatigue, Lethargy, Malaise Eyes: No Symptoms Ears, Nose, & Throat: No Symptoms Respiratory: No Symptoms, Cough Cardiac: No Symptoms Abdominal/Gastrointestinal: No Symptoms, Nausea, Vomiting, Diarrhea Genitourinary Symptoms: No Symptoms, Dysuria, Frequency Musculoskeletal: No Symptoms Skin: No Symptoms Neurological: No Symptoms Psychological: No Symptoms Endocrine: No Symptoms Hematologic/Lymphatic: No Symptoms Immunological/Allergic: No Symptoms - Past Medical History Pertinent Past Medical History: Yes Neurological History: No Pertinent History ENT History: Cataracts Cardiac History: High Cholesterol, Hypertension, Other Respiratory History: COPD Endocrine Medical History: No Pertinent History Musculoskeletal History: Arthritis, Osteoarthritis GI Medical History: GERD, Gallbladder Disease, Polyps History: No Pertinent History Psycho-Social History: No Pertinent History Female Reproductive Disorders: No Pertinent History Other Medical History: bleeding ulcer, insomnia - Past Surgical History Past Surgical History: Yes Neuro Surgical History: No Pertinent History Cardiac: CABG Respiratory: No Pertinent History Gastrointestinal: Appendectomy, Cholecystectomy, Other Genitourinary: No Pertinent History Musculoskeletal: Orthopedic Surgery Female Surgical History: Hysterectomy, Tubal Ligation Other Surgical History: 2 screws in lower back,carpal tunnel release to right wrist, ankle, bleeding ulcer repair - Social History Smoking Status: Former smoker Exposure to second hand smoke: No Drug Use: none Patient Lives Alone: Yes - Nursing Vital Signs Nursing Vital Signs: Initial Vital Signs Temperature 97.7 F 04/18/23 11:18 Pulse Rate 64 04/18/23 11:18 Respiratory Rate 28 H 04/18/23 11:18 Blood Pressure 122/72 04/18/23 11:18 O2 Sat by Pulse Oximetry 98 04/18/23 11:18 Pain Scale Pain Intensity 0 Tachypneic - Physical Exam General Appearance: no apparent distress, anxiety Eye Exam: PERRL/EOMI, eyes nml inspection Ears, Nose, Throat Exam: normal ENT inspection, TMs normal, pharynx normal, moist mucous membranes, pharyngeal erythema Neck Exam: normal inspection, non-tender, full range of motion, No meningismus, No mass, No Brudzinski, No Kernig's Respiratory Exam: airway intact, diminished breath sounds (Decreased BS B), prolonged expirations, No respiratory distress Cardiovascular Exam: regular rate/rhythm, normal heart sounds, capillary refill <2 sec, No murmur Gastrointestinal/Abdomen Exam: soft, normal bowel sounds Back Exam: normal inspection, normal range of motion, No CVA tenderness, No vertebral tenderness Extremity Exam: normal inspection, normal range of motion Neurologic Exam: alert, oriented x 3, cooperative, supervisor mattress and boxsprings II-XII nml as tested, normal mood/affect, nml cerebellar function, nml station & gait, sensation nml Skin Exam: normal color, warm, dry, No rash Lymphatic Exam: No adenopathy SpO2 Interpretation: normal SpO2: 98 O2 Delivery: Room Air - Course Nursing assessment & vital signs reviewed: Yes EKG Interpreted by Me: RATE (NSR/Rate 64/RBBB/Normal QT-QTc/No acute ST segment changes) - Radiology Exams Chest X-ray Interpretation: Reviewed by me, Discussed w/ radiologist (LLL pneumonia) Ordered Tests: Active Orders 24 hr Category Date Time Status Bedrest ROUTINE Activity 04/18/23 13:13 Active Code Status Order ROUTINE Care 04/18/23 13:12 Active EKG-ER Only STAT Care 04/18/23 11:26 Active IV Care Q6H Care 04/18/23 13:12 Active IV Insertion STAT Care 04/18/23 11:26 Active Intake and Output Q12H Care 04/18/23 13:[address] in Observation ROUTINE Care 04/18/23 13:12 Active Vital Signs Q4H Care 04/18/23 13:12 Active Heart-Healthy Diet Diet 04/18/23 Dinner Active CHEST 1 VIEW (PORTABLE) Stat Exams 04/18/23 11:55 Completed AMYLASE Stat Lab 04/18/23 12:13 Completed BLOOD CULTURE Stat Lab 04/18/23 13:17 Received CBC W DIFF AM.LAB Lab 04/19/23 04:00 Ordered CBC W DIFF Stat Lab 04/18/23 12:15 Completed CMP AM.LAB Lab 04/19/23 04:00 Ordered CMP Stat Lab 04/18/23 12:13 Completed LIPASE Stat Lab 04/18/23 12:13 Completed Lactic Acid Stat Lab 04/18/23 12:20 Completed TROPONIN Q4H Lab 04/18/23 12:12 Completed TROPONIN Q4H Lab 04/18/23 12:13 Received TROPONIN Q4H Lab 04/18/23 19:30 Ordered UA W/RFX UR CULTURE Stat Lab 04/18/23 11:26 Ordered Oxygen Nasal Cannula 3 lpm RT 04/18/23 13:12 Active Transfer Order Routine Transfer 04/18/23 Ordered Medication Summary Generic Name Dose Route Start Last Admin Trade Name Freq PRN Reason Stop Dose Admin Albuterol/Ipratropium 3 ml 04/18/23 15:00 Ipratropium/Albuterol Sulfate 3 Ml Ampul.Neb 05/18/23 14:59 Q4HRT MICKY Enoxaparin Sodium 40 mg 04/19/23 10:00 Enoxaparin Sodium 40 Mg/0.4 Ml Syringe SQ 05/19/23 09:59 DAILY MICKY Sodium Chloride 1,000 mls @ 100 mls/hr 04/18/23 13:15 04/18/23 13:26 Sodium Chloride 0.9% 1000 Ml IV 05/18/23 13:14 100 mls/hr .Q10H MICKY Administration Ceftriaxone Sodium/Dextrose 1 g in 50 mls @ 100 mls/hr 04/19/23 10:00 Rocephin 1 Gm-D5w 50 Ml Bag IV 04/22/23 09:59 Q24H10 MICKY Azithromycin 500 mg in 250 mls @ 250 mls/hr 04/19/23 10:00 Zithromax 500 Mg/ 250 Ml Nacl Premix IV 05/19/23 09:59 Q24H10 [facility] Ondansetron HCl 4 mg 04/18/23 13:12 Ondansetron Hcl 4 Mg/2 Ml Vial IV 05/18/23 13:11 Q6H PRN PRN NAUSEA/VOMITING Pantoprazole Sodium 40 mg 04/19/23 10:00 Pantoprazole 40 Mg Vial IV 05/19/23 09:59 Q24H10 [facility] Discontinued Medications Generic Name Dose Route Start Last Admin Trade Name Freq PRN Reason Stop Dose Admin Albuterol/Ipratropium 3 ml 04/18/23 12:46 04/18/23 13:18 Ipratropium/Albuterol Sulfate 3 Ml Ampul.Neb IH 04/18/23 12:47 3 ml STAT ONE Administration Albuterol/Ipratropium Confirm 04/18/23 13:12 Ipratropium/Albuterol Sulfate 3 Ml Ampul.Neb Administered 04/18/23 13:13 Dose 3 ml IH .STK-MED ONE Sodium Chloride 1,000 mls @ 999 mls/hr 04/18/23 11:26 04/18/23 13:25 Sodium Chloride 0.9% 1000 Ml IV 04/18/23 12:26 Infused .Q1H1M STA Infusion Sodium Chloride Confirm 04/18/23 12:23 Sodium Chloride 0.9% 1000 Ml Administered 04/18/23 12:24 Dose 1,000 mls @ ud .ROUTE .STK-MED ONE Ceftriaxone Sodium/Dextrose 1 g in 50 mls @ 100 mls/hr 04/18/23 12:56 04/18/23 13:25 Rocephin 1 Gm-D5w 50 Ml Bag IV 04/18/23 13:25 100 mls/hr STAT STA 100 mls/hr Administration Ceftriaxone Sodium/Dextrose Confirm 04/18/23 13:24 Rocephin 1 Gm-D5w 50 Ml Bag Administered 04/18/23 13:25 Dose 1 g in 50 mls @ ud IV .STK-MED ONE Ondansetron HCl 4 mg 04/18/23 11:26 04/18/23 12:23 Ondansetron Hcl 4 Mg/2 Ml Vial IV 04/18/23 11:27 4 mg STAT ONE Administration Ondansetron HCl Confirm 04/18/23 12:23 Ondansetron Hcl 4 Mg/2 Ml Vial Administered 04/18/23 12:24 Dose 4 mg .ROUTE .K-MED ONE Lab/Rad Data: Laboratory Result Diagrams 04/18/23 12:15 04/18/23 12:13 Laboratory Results 04/18/23 04/18/23 04/18/23 Range/Units 12:20 12:15 12:13 WBC 10.5 (4.0-10.5) x10^3/uL RBC 3.50 L (4.1-5.4) x10^6/uL Hgb 11.0 L (12.0-16.0) g/dL Hct 35.0 (35-47) % MCV 100.0 (78-100) fL MCH 31.4 (26-32) pg MCHC 31.4 L (32-36) g/dL RDW 13.7 (11.5-14.0) % Plt Count 306 (150-450) x10^3/uL MPV 8.6 (7.5-11.0) fL Gran % 65.6 (36.0-66.0) % Immature Gran % (Auto) 0.4 (0.00-0.4) % Nucleat RBC Rel Count 0.0 (0.00-0.1) % Eos # (Auto) 0.05 (0-0.5) x10^3/uL Immature Gran # (Auto) 0.04 H (0.00-0.03) x10^3u/L Absolute Lymphs (auto) 2.43 (1.0-4.6) x10^3/uL Absolute Monos (auto) 0.99 (0.0-1.3) x10^3/uL Absolute Nucleated RBC 0.00 (0.00-0.01) x10^3u/L Lymphocytes % 23.2 L (24.0-44.0) % Monocytes % 9.5 (0.0-12.0) % Eosinophils % 0.5 (0.00-5.0) % Basophils % 0.8 (0.0-0.4) % Absolute Granulocytes 6.87 (1.4-6.9) x10^3/uL Basophils # 0.08 (0-0.4) x10^3/uL Sodium 136 L (137-145) mmol/L Potassium 4.3 (3.5-5.1) mmol/L Chloride 101 (98-107) mmol/L Carbon Dioxide 25 (22-30) mmol/L Anion Gap 14.5 (5-15) MEQ/L BUN 12 (7-17) mg/dL Creatinine 0.69 (0.52-1.04) mg/dL Estimated GFR > 60.0 ML/MIN Glucose 117 H (74-106) mg/dL Lactic Acid 1.3 (0.4-2.0) Calcium 9.2 (8.4-10.2) mg/dL Total Bilirubin 0.60 (0.2-1.3) mg/dL AST 33 (14-36) U/L ALT 28 (0-35) U/L Alkaline Phosphatase 105 (38-126) U/L Troponin I (0.000-0.034) ng/mL Serum Total Protein 7.8 (6.3-8.2) g/dL Albumin 3.8 (3.5-5.0) g/dL Amylase 68 (30-110) U/L Lipase 59 (23-300) U/L Influenza Type A Ag (NEGATIVE) Influenza Type B Ag (NEGATIVE) RSV (PCR) (NEGATIVE) SARS-CoV-2 (PCR) (NEGATIVE) 04/18/23 04/18/23 Range/Units 12:12 11:45 WBC (4.0-10.5) x10^3/uL RBC (4.1-5.4) x10^6/uL Hgb (12.0-16.0) g/dL Hct (35-47) % MCV (78-100) fL MCH (26-32) pg MCHC (32-36) g/dL RDW (11.5-14.0) % Plt Count (150-450) x10^3/uL MPV (7.5-11.0) fL Gran % (36.0-66.0) % Immature Gran % (Auto) (0.00-0.4) % Nucleat RBC Rel Count (0.00-0.1) % Eos # (Auto) (0-0.5) x10^3/uL Immature Gran # (Auto) (0.00-0.03) x10^3u/L Absolute Lymphs (auto) (1.0-4.6) x10^3/uL Absolute Monos (auto) (0.0-1.3) x10^3/uL Absolute Nucleated RBC (0.00-0.01) x10^3u/L Lymphocytes % (24.0-44.0) % Monocytes % (0.0-12.0) % Eosinophils % (0.00-5.0) % Basophils % (0.0-0.4) % Absolute Granulocytes (1.4-6.9) x10^3/uL Basophils # (0-0.4) x10^3/uL Sodium (137-145) mmol/L Potassium (3.5-5.1) mmol/L Chloride (98-107) mmol/L Carbon Dioxide (22-30) mmol/L Anion Gap (5-15) MEQ/L BUN (7-17) mg/dL Creatinine (0.52-1.04) mg/dL Estimated GFR ML/MIN Glucose (74-106) mg/dL Lactic Acid (0.4-2.0) Calcium (8.4-10.2) mg/dL Total Bilirubin (0.2-1.3) mg/dL AST (14-36) U/L ALT (0-35) U/L Alkaline Phosphatase (38-126) U/L Troponin I < 0.012 (0.000-0.034) ng/mL Serum Total Protein (6.3-8.2) g/dL Albumin (3.5-5.0) g/dL Amylase (30-110) U/L Lipase (23-300) U/L Influenza Type A Ag NEGATIVE (NEGATIVE) Influenza Type B Ag NEGATIVE (NEGATIVE) RSV (PCR) NEGATIVE (NEGATIVE) SARS-CoV-2 (PCR) NEGATIVE (NEGATIVE) - Progress Progress Note: 04/18/23 13:42 Nursing note and vital signs reviewed No food or housing insecurities noted Additional history per daughter All lab results reviewed and shared w pt/daughter CXR result reviewed and shared w pt 1L NS bolus 4mg IV Zofran Obs per Dr. Hedrick Blood cultures x2 1gm IV Rocephin Full code per pt Bridge orders entered 04/18/23 13:44 04/18/23 13:47 Counseled pt/family regarding: lab results, diagnosis, need for follow-up, rad results Medical Desision Making - Independent Historian Additional History obtained from: Child - Diagnostic Testing Diagnostic test were ordered, analyzed, and reviewed by me: Yes Radiological Interpretation: Reviewed by me, Discussed w/ radiologist - Risk of complications The pt has a high risk of morbidity or mortality based on: Drug therapy requiring intensive monitoring for toxicity - Departure Departure Disposition: Observation Clinical Impression: Pneumonia Condition: Stable Critical Care Time: No Referrals: MARIUSZ LINARES MD [Primary Care Provider] - Follow up/PCP as directed Instructions: Pneumonia, Adult (DC)
--- NOTE | 2023-04-18 12:10 | XRAY ---
Indication: Cough. Comparison: January 31, 2023 Portable chest demonstrates new left lower lobe consolidating/nonconsolidating airspace disease with small effusion. Remaining lungs again demonstrates COPD and scattered fibrosis/scarring. 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 Bony thorax intact again with osteopenia and degenerative changes.
[2023-04-18 12:20] LABS: Absolute Neutrophil Ct (ANC) 6.87 x10^3/uL (1.4-6.9); BASOPHIL % 0.8 % (0.0-0.4); Basophil (Absolute #) 0.08 x10^3/uL (0-0.4); Eosinophil % 0.5 % (0.00-5.0); Eosinophil (Absolute #) 0.05 x10^3/uL (0-0.5); IMMATURE GRAN # 0.04 x10^3u/L (0.00-0.03); IMMATURE GRAN % 0.4 % (0.00-0.4); Lymphocyte (Absolute #) 2.43 x10^3/uL (1.0-4.6); Lymphocytes % 23.2 % (24.0-44.0); Mean Corpuscular Hemoglobin 31.4 pg (26-32); Mean Corpuscular Hgb Concent. 31.4 g/dL (32-36); Mean Platelet Volume 8.6 fL (7.5-11.0); Monocyte (Absolute #) 0.99 x10^3/uL (0.0-1.3); Monocytes % 9.5 % (0.0-12.0); Neutrophil % 65.6 % (36.0-66.0); Platelet Count 306 x10^3/uL (150-450); Red Cell Distribution Width 13.7 % (11.5-14.0); White Blood Count 10.5 x10^3/uL (4.0-10.5)
[2023-04-18] MEDS ORDERED: Zofran 4 MG/2 ML VIAL ONE (12:23)
[2023-04-18] MEDS ORDERED: Sodium Chloride 0.9% 1000 ML 1,000 ML ONE (12:23)
[2023-04-18 12:24] LABS: INFLUENZA A NEGATIVE (NEGATIVE); INFLUENZA B NEGATIVE (NEGATIVE); RESPIRATORY SYNCTIAL VIRUS NEGATIVE (NEGATIVE); SARS-CoV-2 Xpert Express NEGATIVE (NEGATIVE)
[2023-04-18 12:36] LABS: ALBUMIN 3.8 g/dL (3.5-5.0); ALKALINE PHOSPHATASE 105 U/L (38-126); AMYLASE 68 U/L (30-110); ANION GAP 14.5 MEQ/L (5-15); BLOOD UREA NITROGEN 12 mg/dL (7-17); CHLORIDE 101 mmol/L (98-107); Calcium 9.2 mg/dL (8.4-10.2); Carbon Dioxide 25 mmol/L (22-30); Creatinine 1 0.69 mg/dL (0.52-1.04); EST GLOMERULAR FILTRATION RATE > 60.0 ML/MIN; Glucose 117 mg/dL (74-106); LIPASE 59 U/L (23-300); Potassium 4.3 mmol/L (3.5-5.1); SGOT/AST 33 U/L (14-36); SGPT/ALT 28 U/L (0-35); SODIUM 136 mmol/L (137-145); Total Protein 7.8 g/dL (6.3-8.2)
[2023-04-18] MEDS ORDERED: DUONEB 0.5-3 MG/3 ml Neb IH ONE ×2 (12:46→13:12)
[2023-04-18] MEDS ORDERED: ROCEPHIN 1 Gm-D5w 50 ml Bag** 1 G/50 ML IVPB IV STA (12:56)
[2023-04-18] MEDS ORDERED: Zofran 4 MG/2 ML VIAL IV PRN (13:12)
[2023-04-18] MEDS ORDERED: ROCEPHIN 1 Gm-D5w 50 ml Bag** 1 G/50 ML IVPB IV ONE (13:24)
[2023-04-18] MEDS: Sodium Chloride 0.9% 1000 ML 1,000 ML IV SCH (13:26)
[2023-04-18] MEDS ORDERED: DUONEB 0.5-3 MG/3 ml Neb IH SCH (15:00)
[2023-04-18] MEDS ORDERED: PROTONIX 40 MG IV IV SCH (15:00)
[2023-04-18] MEDS: ENOXAPARIN SODIUM SQ SCH (16:10)
[2023-04-18] MEDS: Zithromax 500 MG/ 250 ML NaCl Premix 500 MG/250 ML IVPB IV SCH (16:10)
[2023-04-18] MEDS ORDERED: TYLENOL 325 MG PO PRN (17:06)
--- NOTE | 2023-04-18 17:06 | PCM.HP ---
History of Present Illness - Chief Complaint Chief Complaint: Cough and shortness of breath, fever Date: 04/18/23 History of Present Illness: 77-year-old woman with a history of COPD on 3 L home oxygen, CAD, and hypertension, who presents with cough and fever. Patient had onset 1 week ago of fever, cough, and wheezing, feeling similar to her prior pneumonias. She tried managing at home with her inhalers, but had only limited relief.. Has been progressively worsening, until she was unable to sleep well the last 2 days, or tolerate any p.o. Has been having frequent nonbloody nonbilious vomiting since then. She denies any diarrhea or sick contacts. Complains of some chest pain after severe coughing, but none without coughing, and none with exertion. She went to her PCP today, who referred her to the emergency room. She stated "I was waiting to come in, I knew they would tell me I had a pneumonia again." - Review of Systems Constitutional: Fever, Chills, Fatigue, Weakness Eyes: No Symptoms Ears, Nose, & Throat: No Ear Pain, No Sinus Drainage, No Throat Pain Respiratory: Cough, Short Of Breath, Wheezing, No Orthopnea Cardiac: Chest Pain (After coughing), No Edema, No Palpitations, No Syncope, No Orthopnea Abdominal/Gastrointestinal: Nausea, Vomiting, No Abdominal Pain, No Diarrhea Genitourinary Symptoms: No Symptoms Musculoskeletal: No Symptoms Skin: No Symptoms Neurological: No Symptoms Psychological: No Symptoms Medications & Allergies Home Medications: Home Medication List Carvedilol [Coreg] 25 mg PO BID 08/06/20 [History Confirmed 04/18/23] Losartan Potassium [Cozaar] 25 mg PO BID 08/06/20 [History Confirmed 04/18/23] Potassium Chloride [Klor-Con] 20 meq PO DAILY 08/06/20 [History Confirmed 04/18/23] Multivitamin [Multiple Vitamins] 1 each PO DAILY 05/23/21 [History Confirmed 04/18/23] PANTOPRAZOLE 40 mg Tablet [Protonix 40MG Tablet] 40 mg PO QAM #30 tab 11/10/21 [Rx Confirmed 04/18/23] Albuterol Sulfate [Proair Respiclick] 2 puff IH Q6HPRN PRN 01/08/22 [History Confirmed 04/18/23] Melatonin 3 mg PO HS PRN 01/08/22 [History Confirmed 04/18/23] Acetaminophen 325 mg [Tylenol 325 mg] 650 mg PO Q4H PRN PRN tablet 01/09/22 [Rx Confirmed 04/18/23] Albuterol/Ipratropium 3ml Neb* [DUONEB 0.5-3 MG/3 ml Neb] 1 neb IH Q4HPRN PRN 05/24/22 [History Confirmed 04/18/23] Amlodipine Besylate [Norvasc] 5 mg PO DAILY 05/24/22 [History Confirmed 04/18/23] Fluticasone/Salmeterol 115/ [Advair Hfa 115 Common canister*] 1 puff IH BIDRT 05/24/22 [History Confirmed 04/18/23] Famotidine 20 mg [Pepcid 20 MG] 20 mg PO BID 01/31/23 [History Confirmed 04/18/23] Mirtazapine [Remeron] 15 mg PO HS 01/31/23 [History Confirmed 04/18/23] Rosuvastatin Calcium 20 mg PO HS 01/31/23 [History Confirmed 04/18/23] Aspirin EC 81 mg [Ecotrin 81 mg] 1 tab PO HS 04/18/23 [History Confirmed 04/18/23] Tramadol HCl 50 mg [Ultram 50 mg] 50 mg PO TID PRN 04/18/23 [History Confirmed 04/18/23] Allergies/Adverse Reactions: Allergies Allergy/AdvReac Type Severity Reaction Status Date / Time iodine Allergy Severe Hives Verified 04/18/23 11:24 - Past Medical History Past Medical History: Yes Neurological History: No Pertinent History ENT History: Cataracts Cardiac History: High Cholesterol, Hypertension, Other Respiratory History: COPD Endocrine Medical History: No Pertinent History Musculoskelatal History: Arthritis, Osteoarthritis GI Medical History: GERD, Gallbladder Disease, Polyps History: No Pertinent History Pyscho-Social History: No Pertinent History Reproductive Disorders: No Pertinent History Comment: bleeding ulcer, insomnia - Past Surgical History Past Surgical History: Yes Neuro Surgical History: No Pertinent History Cardiac History: CABG Respiratory Surgery: No Pertinent History GI Surgical History: Appendectomy, Cholecystectomy, Other Genitourinary Surgical Hx: No Pertinent History Musculskeletal Surgical Hx: Orthopedic Surgery Female Surgical History: Hysterectomy, Tubal Ligation Other Surgical History: 2 screws in lower back,carpal tunnel release to right wrist, ankle, bleeding ulcer repair - Social History Smoking Status: Former smoker Exposure to second hand smoke: No Alcohol: None Drug Use: none Significant Family History: heart disease - Physical Exam Vital Signs: Vital Signs - 24 hr Temp Pulse Resp BP BP Pulse Ox 04/18/23 16:00 98.6 F 63 22 140/63 98 04/18/23 14:28 97.7 F 120 H 20 111/70 90 L 04/18/23 13:48 98 04/18/23 13:31 69 29 H 112/44 97 04/18/23 13:23 70 20 96 04/18/23 13:00 69 19 113/58 94 L 04/18/23 12:30 71 27 H 105/58 99 04/18/23 12:29 65 24 109/59 99 04/18/23 12:28 66 22 95 04/18/23 12:20 69 20 04/18/23 12:10 75 24 04/18/23 12:02 71 18 04/18/23 11:26 66 19 122/72 96 04/18/23 11:18 97.7 F 64 28 H 122/72 98 General Appearance: no apparent distress Neurologic Exam: alert, oriented x 3, normal mood/affect Eye Exam: eyes nml inspection Respiratory Exam: wheezing (Mild end expiratory), other (On home 3 L oxygen), No respiratory distress, No diminished breath sounds, No accessory muscle use Cardiovascular Exam: regular rate/rhythm, murmur (1/6 systolic murmur), No edema Gastrointestinal/Abdomen Exam: soft, No tenderness, No distention Results - Labs Lab/Micro Results: Lab Results-Last 24 Hours 04/18/23 04/18/23 04/18/23 Range/Units 11:45 12:12 12:13 WBC (4.0-10.5) x10^3/uL RBC (4.1-5.4) x10^6/uL Hgb (12.0-16.0) g/dL Hct (35-47) % MCV (78-100) fL MCH (26-32) pg MCHC (32-36) g/dL RDW (11.5-14.0) % Plt Count (150-450) x10^3/uL MPV (7.5-11.0) fL Gran % (36.0-66.0) % Immature Gran % (Auto) (0.00-0.4) % Nucleat RBC Rel Count (0.00-0.1) % Eos # (Auto) (0-0.5) x10^3/uL Immature Gran # (Auto) (0.00-0.03) x10^3u/L Absolute Lymphs (auto) (1.0-4.6) x10^3/uL Absolute Monos (auto) (0.0-1.3) x10^3/uL Absolute Nucleated RBC (0.00-0.01) x10^3u/L Lymphocytes % (24.0-44.0) % Monocytes % (0.0-12.0) % Eosinophils % (0.00-5.0) % Basophils % (0.0-0.4) % Absolute Granulocytes (1.4-6.9) x10^3/uL Basophils # (0-0.4) x10^3/uL Sodium 136 L (137-145) mmol/L Potassium 4.3 (3.5-5.1) mmol/L Chloride 101 (98-107) mmol/L Carbon Dioxide 25 (22-30) mmol/L Anion Gap 14.5 (5-15) MEQ/L BUN 12 (7-17) mg/dL Creatinine 0.69 (0.52-1.04) mg/dL Estimated GFR > 60.0 ML/MIN Glucose 117 H (74-106) mg/dL Lactic Acid (0.4-2.0) Calcium 9.2 (8.4-10.2) mg/dL Total Bilirubin 0.60 (0.2-1.3) mg/dL AST 33 (14-36) U/L ALT 28 (0-35) U/L Alkaline Phosphatase 105 (38-126) U/L Troponin I < 0.012 (0.000-0.034) ng/mL Serum Total Protein 7.8 (6.3-8.2) g/dL Albumin 3.8 (3.5-5.0) g/dL Amylase 68 (30-110) U/L Lipase 59 (23-300) U/L Influenza Type A Ag NEGATIVE (NEGATIVE) Influenza Type B Ag NEGATIVE (NEGATIVE) RSV (PCR) NEGATIVE (NEGATIVE) SARS-CoV-2 (PCR) NEGATIVE (NEGATIVE) 04/18/23 04/18/23 04/18/23 Range/Units 12:13 12:15 12:20 WBC 10.5 (4.0-10.5) x10^3/uL RBC 3.50 L (4.1-5.4) x10^6/uL Hgb 11.0 L (12.0-16.0) g/dL Hct 35.0 (35-47) % MCV 100.0 (78-100) fL MCH 31.4 (26-32) pg MCHC 31.4 L (32-36) g/dL RDW 13.7 (11.5-14.0) % Plt Count 306 (150-450) x10^3/uL MPV 8.6 (7.5-11.0) fL Gran % 65.6 (36.0-66.0) % Immature Gran % (Auto) 0.4 (0.00-0.4) % Nucleat RBC Rel Count 0.0 (0.00-0.1) % Eos # (Auto) 0.05 (0-0.5) x10^3/uL Immature Gran # (Auto) 0.04 H (0.00-0.03) x10^3u/L Absolute Lymphs (auto) 2.43 (1.0-4.6) x10^3/uL Absolute Monos (auto) 0.99 (0.0-1.3) x10^3/uL Absolute Nucleated RBC 0.00 (0.00-0.01) x10^3u/L Lymphocytes % 23.2 L (24.0-44.0) % Monocytes % 9.5 (0.0-12.0) % Eosinophils % 0.5 (0.00-5.0) % Basophils % 0.8 (0.0-0.4) % Absolute Granulocytes 6.87 (1.4-6.9) x10^3/uL Basophils # 0.08 (0-0.4) x10^3/uL Sodium (137-145) mmol/L Potassium (3.5-5.1) mmol/L Chloride (98-107) mmol/L Carbon Dioxide (22-30) mmol/L Anion Gap (5-15) MEQ/L BUN (7-17) mg/dL Creatinine (0.52-1.04) mg/dL Estimated GFR ML/MIN Glucose (74-106) mg/dL Lactic Acid 1.3 (0.4-2.0) Calcium (8.4-10.2) mg/dL Total Bilirubin (0.2-1.3) mg/dL AST (14-36) U/L ALT (0-35) U/L Alkaline Phosphatase (38-126) U/L Troponin I < 0.012 (0.000-0.034) ng/mL Serum Total Protein (6.3-8.2) g/dL Albumin (3.5-5.0) g/dL Amylase (30-110) U/L Lipase (23-300) U/L Influenza Type A Ag (NEGATIVE) Influenza Type B Ag (NEGATIVE) RSV (PCR) (NEGATIVE) SARS-CoV-2 (PCR) (NEGATIVE) - Radiology Impressions Radiology Exams & Impressions: Radiology Procedures Category Date Time Status CHEST 1 VIEW (PORTABLE) Stat Exams 04/18/23 11:55 Completed Chest x-ray: Left lower lobe consolidation along the margin of the heart, images personally reviewed. - Other Procedures and Tests Respiratory Therapy 04/18/23 13:12 Oxygen Nasal Cannula 3 lpm Assessment/Plan (1) Pneumonia Current Visit: Yes Status: Acute Qualifiers: Assessment & Plan: 77-year-old woman with a history of COPD, chronic hypoxic respiratory failure, CAD, and hypertension, here with left lower lobe pneumonia. ## Left lower lobe pneumonia without severe worsening of her underlying COPD, but causing fever, chills, nausea, and anorexia. Follow-up blood cultures from the ED Start Rocephin and azithromycin daily Continue home PRN DuoNeb, but changed to nebulizer ## Hypertension blood pressure currently controlled. Restart home Coreg 25 BID, losartan 25 BID, amlodipine 5 daily ## CAD her current chest pain seems to be posttussive, atypical for coronary pain. Troponins are negative. Continue home aspirin 81 mg, Coreg 25 BID, and Crestor 20 QHS ## Chronic hypoxic respiratory failure, COPD evidence of hyperinflation on her chest x-ray. Patient is currently on her home 3 L oxygen requirement. Continue oxygen, wean to maintain SpO2 between 91 to 94% Holding Advair in the setting of regular DuoNebs above CODE STATUS: Full code Diet: Regular Prophylaxis: Lovenox 40 daily Code(s): J18.9 - PNEUMONIA, UNSPECIFIED ORGANISM Telemedicine Encounter - Telemedicine Encounter Telemedicine Encounter: The entirety of this encounter was performed via Telemedicine"
[2023-04-18] MEDS ORDERED: DUONEB 0.5-3 MG/3 ml Neb IH PRN (17:08)
[2023-04-18] MEDS: Klor Con PO SCH (19:17)
[2023-04-18] MEDS: THERAGRAN MULTIVITAMIN PO SCH (19:17)
[2023-04-18] MEDS: ULTRAM 50 MG PO PRN (19:27)
[2023-04-18] MEDS: NORVASC 5 MG PO SCH (19:36)
[2023-04-18] MEDS: Advair Hfa 115/21 Common canister IH SCH (19:40)
[2023-04-18] MEDS: Pepcid 20 MG PO SCH (21:11)
[2023-04-18] MEDS: ECOTRIN 81 MG PO SCH (21:11)
[2023-04-18] MEDS: ZOCOR 20MG PO SCH (21:11)
[2023-04-18] MEDS: COREG 12.5 MG PO SCH (21:11)
[2023-04-18] MEDS: MIRTAZAPINE PO SCH (21:12)
[2023-04-18] MEDS: Cozaar 50 MG PO SCH (21:12)
[2023-04-18] MEDS ORDERED: NON-FORMULARY ITEM (Rosuvastatin Calcium [Rosuvastatin Calcium] 20 MG Tablet) PO SCH (22:00)
[2023-04-18] MEDS ORDERED: MIRTAZAPINE 15 MG PO SCH (22:00)
[2023-04-18] MEDS ORDERED: NON-FORMULARY ITEM (Carvedilol [Coreg] 25 MG Tablet) PO SCH (22:00)
[2023-04-18] MEDS ORDERED: NON-FORMULARY ITEM (Losartan Potassium [Cozaar] 25 MG Tablet) PO SCH (22:00)
[2023-04-19] MEDS: Sodium Chloride 0.9% 1000 ML 1,000 ML IV SCH ×3 (01:35→22:34)
[2023-04-19] MEDS: ULTRAM 50 MG PO PRN ×2 (01:44→18:15)
[2023-04-19 05:29] LABS: Absolute Neutrophil Ct (ANC) 6.76 x10^3/uL (1.4-6.9); BASOPHIL % 0.8 % (0.0-0.4); Basophil (Absolute #) 0.09 x10^3/uL (0-0.4); Eosinophil % 1.4 % (0.00-5.0); Eosinophil (Absolute #) 0.16 x10^3/uL (0-0.5); Hematocrit 30.3 % (35-47); Hemoglobin 9.3 g/dL (12.0-16.0); IMMATURE GRAN # 0.04 x10^3u/L (0.00-0.03); IMMATURE GRAN % 0.3 % (0.00-0.4); Lymphocyte (Absolute #) 3.14 x10^3/uL (1.0-4.6); Lymphocytes % 26.6 % (24.0-44.0); Mean Cell Volume 101.7 fL (78-100); Mean Corpuscular Hemoglobin 31.2 pg (26-32); Mean Corpuscular Hgb Concent. 30.7 g/dL (32-36); Mean Platelet Volume 8.6 fL (7.5-11.0); Monocyte (Absolute #) 1.62 x10^3/uL (0.0-1.3); Monocytes % 13.7 % (0.0-12.0); Neutrophil % 57.2 % (36.0-66.0); Platelet Count 244 x10^3/uL (150-450); Red Blood Count 2.98 x10^6/uL (4.1-5.4); Red Cell Distribution Width 13.8 % (11.5-14.0); White Blood Count 11.8 x10^3/uL (4.0-10.5)
[2023-04-19 06:03] LABS: ALKALINE PHOSPHATASE 93 U/L (38-126); BLOOD UREA NITROGEN 7 mg/dL (7-17); CHLORIDE 102 mmol/L (98-107); Calcium 8.1 mg/dL (8.4-10.2); Carbon Dioxide 25 mmol/L (22-30); Creatinine 1 0.67 mg/dL (0.52-1.04); EST GLOMERULAR FILTRATION RATE > 60.0 ML/MIN; Glucose 87 mg/dL (74-106); Potassium 4.1 mmol/L (3.5-5.1); SGOT/AST 37 U/L (14-36); SGPT/ALT 24 U/L (0-35); SODIUM 134 mmol/L (137-145); Total Protein 6.4 g/dL (6.3-8.2)
[2023-04-19] MEDS: Advair Hfa 115/21 Common canister IH SCH ×2 (07:36→19:05)
[2023-04-19] MEDS: ROCEPHIN 1 Gm-D5w 50 ml Bag** 1 G/50 ML IVPB IV SCH (08:45)
[2023-04-19] MEDS: ENOXAPARIN SODIUM SQ SCH (08:48)
[2023-04-19] MEDS: Pepcid 20 MG PO SCH ×2 (08:48→22:34)
[2023-04-19] MEDS: THERAGRAN MULTIVITAMIN PO SCH (08:49)
[2023-04-19] MEDS: Protonix 40MG Tablet PO SCH (08:49)
[2023-04-19] MEDS: Klor Con PO SCH (08:49)
[2023-04-19] MEDS: Zithromax 500 MG/ 250 ML NaCl Premix 500 MG/250 ML IVPB IV SCH (08:50)
[2023-04-19] MEDS: Cozaar 50 MG PO SCH (09:02)
[2023-04-19] MEDS: NORVASC 5 MG PO SCH (09:02)
[2023-04-19] MEDS: COREG 12.5 MG PO SCH ×2 (09:02→22:34)
[2023-04-19 09:42] LABS: Slide Review 1 YES
[2023-04-19] MEDS ORDERED: NON-FORMULARY ITEM (Potassium Chloride [Klor-Con] 20 MEQ Packet) PO SCH (10:00)
[2023-04-19] MEDS ORDERED: NON-FORMULARY ITEM (Multivitamin [Multiple Vitamins] 1 EACH Tablet) PO SCH (10:00)
[2023-04-19] MEDS ORDERED: Sterile H2O 10 ml IJ SCH (11:00)
[2023-04-19] MEDS ORDERED: solu-MEDROL IV ONE (11:00)
--- NOTE | 2023-04-19 14:43 | PCM.NOTE ---
Date and Time: 04/19/23 1438 Subjective Assessment: Patient continues to have significant cough, with associated pain. No nausea, but has poor appetite. Continues on her baseline 3 L of oxygen. Objective Exam General Appearance: no apparent distress Neurologic Exam: alert, oriented x 3 Skin Exam: No rash Eye Exam: No eyes nml inspection Respiratory Exam: wheezing (Mild but diffuse, end-expiratory), No respiratory d istress, No accessory muscle use Cardiovascular Exam: regular rate/rhythm, No murmur, No edema Gastrointestinal/Abdomen Exam: soft, No tenderness, No distention OBJECTIVE DATA Vital Signs: Vital Signs - 24 hr Temp Pulse Resp BP Pulse Ox 04/19/23 12:00 97.8 F 63 22 99/54 97 04/19/23 07:43 64 18 98 04/19/23 06:55 97.8 F 62 23 95/51 96 04/19/23 03:59 99.0 F 63 18 100/50 94 L 04/19/23 00:31 112/52 04/19/23 00:00 98.2 F 64 15 87/46 97 04/18/23 19:40 74 18 94 L 04/18/23 19:37 98.3 F 72 18 99/49 97 04/18/23 17:32 63 22 96 04/18/23 16:00 98.6 F 63 22 140/63 98 Pain Assessment - Last Documented Pain Intensity 3 Intake and Output: Intake & Output 04/17/23 04/18/23 04/19/23 04/20/23 11:59 11:59 11:59 11:59 Intake Total 3318 240 Balance 3318 240 Weight 49.5 kg 49.5 kg Lab Results: Lab Results-Last 24 Hours 04/18/23 04/18/23 04/19/23 Range/Units 12:13 19:10 05:05 WBC 11.8 H (4.0-10.5) x10^3/uL RBC 2.98 L (4.1-5.4) x10^6/uL Hgb 9.3 L (12.0-16.0) g/dL Hct 30.3 L (35-47) % MCV 101.7 H (78-100) fL MCH 31.2 (26-32) pg MCHC 30.7 L (32-36) g/dL RDW 13.8 (11.5-14.0) % Plt Count 244 (150-450) x10^3/uL MPV 8.6 (7.5-11.0) fL Gran % 57.2 (36.0-66.0) % Immature Gran % (Auto) 0.3 (0.00-0.4) % Nucleat RBC Rel Count 0.0 (0.00-0.1) % Eos # (Auto) 0.16 (0-0.5) x10^3/uL Immature Gran # (Auto) 0.04 H (0.00-0.03) x10^3u/L Absolute Lymphs (auto) 3.14 (1.0-4.6) x10^3/uL Absolute Monos (auto) 1.62 H (0.0-1.3) x10^3/uL Absolute Nucleated RBC 0.00 (0.00-0.01) x10^3u/L Lymphocytes % 26.6 (24.0-44.0) % Monocytes % 13.7 H (0.0-12.0) % Eosinophils % 1.4 (0.00-5.0) % Basophils % 0.8 (0.0-0.4) % Absolute Granulocytes 6.76 (1.4-6.9) x10^3/uL Basophils # 0.09 (0-0.4) x10^3/uL Sodium (137-145) mmol/L Potassium (3.5-5.1) mmol/L Chloride (98-107) mmol/L Carbon Dioxide (22-30) mmol/L Anion Gap (5-15) MEQ/L BUN (7-17) mg/dL Creatinine (0.52-1.04) mg/dL Estimated GFR ML/MIN Glucose (74-106) mg/dL Calcium (8.4-10.2) mg/dL Total Bilirubin (0.2-1.3) mg/dL AST (14-36) U/L ALT (0-35) U/L Alkaline Phosphatase (38-126) U/L Troponin I < 0.012 < 0.012 (0.000-0.034) ng/mL Serum Total Protein (6.3-8.2) g/dL Albumin (3.5-5.0) g/dL Slides for Path Review YES 06/29/23 Range/Units 05:05 WBC (4.0-10.5) x10^3/uL RBC (4.1-5.4) x10^6/uL Hgb (12.0-16.0) g/dL Hct (35-47) % MCV (78-100) fL MCH (26-32) pg MCHC (32-36) g/dL RDW (11.5-14.0) % Plt Count (150-450) x10^3/uL MPV (7.5-11.0) fL Gran % (36.0-66.0) % Immature Gran % (Auto) (0.00-0.4) % Nucleat RBC Rel Count (0.00-0.1) % Eos # (Auto) (0-0.5) x10^3/uL Immature Gran # (Auto) (0.00-0.03) x10^3u/L Absolute Lymphs (auto) (1.0-4.6) x10^3/uL Absolute Monos (auto) (0.0-1.3) x10^3/uL Absolute Nucleated RBC (0.00-0.01) x10^3u/L Lymphocytes % (24.0-44.0) % Monocytes % (0.0-12.0) % Eosinophils % (0.00-5.0) % Basophils % (0.0-0.4) % Absolute Granulocytes (1.4-6.9) x10^3/uL Basophils # (0-0.4) x10^3/uL Sodium 134 L (137-145) mmol/L Potassium 4.1 (3.5-5.1) mmol/L Chloride 102 (98-107) mmol/L Carbon Dioxide 25 (22-30) mmol/L Anion Gap 11.0 (5-15) MEQ/L BUN 7 (7-17) mg/dL Creatinine 0.67 (0.52-1.04) mg/dL Estimated GFR > 60.0 ML/MIN Glucose 87 (74-106) mg/dL Calcium 8.1 L (8.4-10.2) mg/dL Total Bilirubin 0.50 (0.2-1.3) mg/dL AST 37 H (14-36) U/L ALT 24 (0-35) U/L Alkaline Phosphatase 93 (38-126) U/L Troponin I (0.000-0.034) ng/mL Serum Total Protein 6.4 (6.3-8.2) g/dL Albumin 3.0 L (3.5-5.0) g/dL Slides for Path Review Radiology Exams: Radiology Procedures Category Date Time Status CHEST 1 VIEW (PORTABLE) Stat Exams 04/18/23 11:55 Completed Multi-Disciplinary Progress Notes: Multi-Disciplinary Progress Notes 04/19/23 10:44 Case Management Note by Brionna Lozano [facility] CALLED BACK AND HAVE ACCEPTED PATIENT. WILL CONTACT THEM AT TIME OF DC. Initialized on 04/19/23 10:44 - END OF NOTE 04/19/23 10:05 Case Management Note by Brionna Lozano REFERRAL FAXED TO [facility]. THEY WILL NEED NOTIFED AT TIME OF DC AT .. THEY WILL FAXED THE DC INSTRUCTIONS, DC MED LIST AND DC SUMMARY ( IF AVAILABLE) TO . Initialized on 04/19/23 10:05 - END OF NOTE Assessment/Plan (1) Pneumonia Current Visit: Yes Status: Acute Qualifiers: Assessment & Plan: 77-year-old woman with a history of COPD, chronic hypoxic respiratory failure, CAD, and hypertension, here with left lower lobe pneumonia, with evidence of mild COPD exacerbation today. ## Left lower lobe pneumonia without severe worsening of her underlying COPD, but causing fever, chills, nausea, and anorexia. Follow-up blood cultures from the ED Continue Rocephin and azithromycin daily Continue home PRN DuoNeb ## Chronic hypoxic respiratory failure, COPD evidence of hyperinflation on her chest x-ray. Patient is currently on her home 3 L oxygen requirement. But has some wheezing today, indicating some degree of acute exacerbation from the pneumonia. Give Solu-Medrol 125 mg IV x1 Start prednisone 40 mg daily as of tomorrow Continue her home 3 L oxygen Holding home Advair in the setting of systemic steroids and DuoNebs as above ## Hypertension blood pressure low overnight Hold home losartan, amlodipine Continue carvedilol 25 mg p.o. BID for now ## CAD her current chest pain seems to be posttussive, atypical for coronary pain. Troponins are negative. Continue home aspirin 81 mg, Coreg 25 BID, and Crestor 20 QHS CODE STATUS: Full code Diet: Regular Prophylaxis: Lovenox 40 daily Code(s): J18.9 - PNEUMONIA, UNSPECIFIED ORGANISM Telemedicine Encounter - Telemedicine Encounter Telemedicine Encounter: The entirety of this encounter was performed via Telemedicine"
[2023-04-19] MEDS: MIRTAZAPINE PO SCH (22:34)
[2023-04-19] MEDS: ZOCOR 20MG PO SCH (22:34)
[2023-04-19] MEDS: ECOTRIN 81 MG PO SCH (22:34)
[2023-04-20 04:56] LABS: Hematocrit 38.4 % (35-47); Mean Cell Volume 100.5 fL (78-100); Mean Corpuscular Hemoglobin 31.4 pg (26-32); Mean Corpuscular Hgb Concent. 31.3 g/dL (32-36); Mean Platelet Volume 9.7 fL (7.5-11.0); Platelet Count 232 x10^3/uL (150-450); Red Blood Count 3.82 x10^6/uL (4.1-5.4); Red Cell Distribution Width 13.4 % (11.5-14.0); White Blood Count 7.7 x10^3/uL (4.0-10.5)
[2023-04-20 05:30] LABS: ANION GAP 14.1 MEQ/L (5-15); BLOOD UREA NITROGEN 10 mg/dL (7-17); CHLORIDE 101 mmol/L (98-107); Calcium 8.6 mg/dL (8.4-10.2); Carbon Dioxide 23 mmol/L (22-30); Creatinine 1 0.45 mg/dL (0.52-1.04); EST GLOMERULAR FILTRATION RATE > 60.0 ML/MIN; Glucose 157 mg/dL (74-106); Potassium 4.3 mmol/L (3.5-5.1); SODIUM 134 mmol/L (137-145)
[2023-04-20] MEDS: Advair Hfa 115/21 Common canister IH SCH (06:10)
[2023-04-20] MEDS: Sodium Chloride 0.9% 1000 ML 1,000 ML IV SCH (06:27)
[2023-04-20 06:48] VITALS: PULSE 56
[2023-04-20] MEDS: ROCEPHIN 1 Gm-D5w 50 ml Bag** 1 G/50 ML IVPB IV SCH (08:17)
[2023-04-20] MEDS: Klor Con PO SCH (08:22)
[2023-04-20] MEDS: THERAGRAN MULTIVITAMIN PO SCH (08:23)
[2023-04-20] MEDS: Pepcid 20 MG PO SCH (08:23)
[2023-04-20] MEDS: COREG 12.5 MG PO SCH (08:24)
[2023-04-20] MEDS: ENOXAPARIN SODIUM SQ SCH (08:25)
[2023-04-20] MEDS: Protonix 40MG Tablet PO SCH (08:26)
[2023-04-20] MEDS: Zithromax 500 MG/ 250 ML NaCl Premix 500 MG/250 ML IVPB IV SCH (08:34)
[2023-04-20] MEDS ORDERED: DELTASONE 20 MG PO SCH (10:00)
[2023-04-20 11:50] VITALS: BP 119/58; O2SAT 99
--- NOTE | 2023-04-20 11:58 | PCM.DS ---
Discharge Summary Date of Admission: 04/18/23 14:10 Date of Discharge: 04/20/23 Admitting Physician: NADJA GARZA MD Primary Care Provider: ILANA LINARESSH Allergies Allergies iodine Allergy (Severe, Verified 04/18/23 11:24) [facility] Summary - Hospital Course Hospital Course: Dyspnea and cough have improved. Received antibiotics, steroids, nebulizers. On baseline (3LPM) oxygen. Will follow up with PCP and Dr. Guzman. Discharging on oral antibiotics, prednisone taper. - Vitals & Intake/Output Vital Signs: Vital Signs Temperature 97.6 F 04/20/23 11:48 Pulse Rate 56 L 04/20/23 11:48 Respiratory Rate 16 04/20/23 11:48 Blood Pressure 119/58 04/20/23 11:48 O2 Sat by Pulse Oximetry 99 04/20/23 11:48 Intake & Output: Intake & Output 04/17/23 04/18/23 04/19/23 04/20/23 11:59 11:59 11:59 11:59 Intake Total 3318 720 Output Total 600 Balance 3318 120 Weight 49.5 kg 49.5 kg - Lab Result Diagrams: 04/20/23 04:28 04/20/23 04:28 Lab Results-Last 24 Hrs: Lab Results-Last 24 Hours 04/20/23 04/20/23 Range/Units 04:28 04:28 WBC 7.7 (4.0-10.5) x10^3/uL RBC 3.82 L (4.1-5.4) x10^6/uL Hgb 12.0 D (12.0-16.0) g/dL Hct 38.4 (35-47) % MCV 100.5 H (78-100) fL MCH 31.4 (26-32) pg MCHC 31.3 L (32-36) g/dL RDW 13.4 (11.5-14.0) % Plt Count 232 (150-450) x10^3/uL MPV 9.7 (7.5-11.0) fL Sodium 134 L (137-145) mmol/L Potassium 4.3 (3.5-5.1) mmol/L Chloride 101 (98-107) mmol/L Carbon Dioxide 23 (22-30) mmol/L Anion Gap 14.1 (5-15) MEQ/L BUN 10 (7-17) mg/dL Creatinine 0.45 L (0.52-1.04) mg/dL Estimated GFR > 60.0 ML/MIN Glucose 157 H (74-106) mg/dL Calcium 8.6 (8.4-10.2) mg/dL Micro Results-Entire Visit: Microbiology 04/18/23 13:17 Blood Culture - Preliminary Blood 04/18/23 13:17 Blood Culture - Preliminary Blood - Radiology Exams Ordered Rad Exams-Entire Visit: Radiology Procedures Category Date Time Status CHEST 1 VIEW (PORTABLE) Stat Exams 04/18/23 11:55 Completed - Procedures and Test Procedures and Tests throughout Hospitalization: Therapy Orders & Screens 04/18/23 13:12 Oxygen Nasal Cannula 3 lpm Comment: 04/18/23 18:48 RT Screen per Nursing Assess ONCE Comment: Protocol Order Physician Instructions: Greater than 3 points order RT Admission Screen Reason For Exam: Triggered on Admission Diagnosis: Cough and shortness of breath, fever Diagnosis: Cough and shortness of breath, fever Pneumonia: Yes Home O2: Yes Asthma: No CHF: No Home CPAP/BIPAP: No Home Nebs/MDI: Yes Total Points: 13 Discharge Exam General Appearance: no apparent distress, alert Neurologic Exam: alert, oriented x 3, cooperative, 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, normal mood/affect, nml cerebellar function, dysarthria Eye Exam: PERRL, EOMI, eyes nml inspection Ears, Nose, Throat Exam: normal ENT inspection Neck Exam: normal inspection, non-tender, supple, full range of motion Respiratory Exam: normal breath sounds, lungs clear Cardiovascular Exam: regular rate/rhythm, normal heart sounds Gastrointestinal/Abdomen Exam: soft Back Exam: normal range of motion Extremity Exam: normal inspection, normal range of motion Skin Exam: normal color Final Diagnosis/Problem List - Final Discharge Diagnosis/Problem (1) Pneumonia Current Visit: Yes Status: Acute Assessment & Plan: Dyspnea and cough have improved. Received antibiotics, steroids, nebulizers. On baseline (3LPM) oxygen. Will follow up with PCP and Dr. Guzman. Discharging on oral antibiotics, prednisone taper. Code(s): J18.9 - PNEUMONIA, UNSPECIFIED ORGANISM (2) COPD with exacerbation Current Visit: No Status: Acute Assessment & Plan: Dyspnea and cough have improved. Received antibiotics, steroids, nebulizers. On baseline (3LPM) oxygen. Will follow up with PCP and Dr. Guzman. Discharging on oral antibiotics, prednisone taper. Code(s): J44.1 - CHRONIC OBSTRUCTIVE PULMONARY DISEASE W (ACUTE) EXACERBATION Telemedicine Encounter - Telemedicine Encounter Telemedicine Encounter: The entirety of this encounter was performed via Telemedicine" - Discharge Disposition: Home, Self-Care Condition: Stable Prescriptions: New Azithromycin 500 mg PO DAILY 3 Days #3 tablet Cefdinir 300 mg PO BID 5 Days #10 cap Prednisone 10 mg [Deltasone 10 mg] 10 mg PO DAILY #30 tablet Continue Potassium Chloride [Klor-Con] 20 meq PO DAILY Losartan Potassium [Cozaar] 25 mg PO BID Carvedilol [Coreg] 25 mg PO BID Multivitamin [Multiple Vitamins] 1 each PO DAILY PANTOPRAZOLE 40 mg Tablet [Protonix 40MG Tablet] 40 mg PO QAM #30 tab Albuterol Sulfate [Proair Respiclick] 2 puff IH Q6HPRN PRN PRN Reason: Shortness Of Breath/Wheezing Melatonin 3 mg PO HS PRN PRN Reason: Insomnia Acetaminophen 325 mg [Tylenol 325 mg] 650 mg PO Q4H PRN PRN tablet PRN Reason: Pain And/Or Fever Fluticasone/Salmeterol 115/21 [Advair Hfa 115/21 Common canister*] 1 puff IH BIDRT Amlodipine Besylate [Norvasc] 5 mg PO DAILY Albuterol/Ipratropium 3ml Neb* [DUONEB 0.5-3 MG/3 ml Neb] 1 neb IH Q4HPRN PRN PRN Reason: Shortness Of Breath/Wheezing Famotidine 20 mg [Pepcid 20 MG] 20 mg PO BID Mirtazapine [Remeron] 15 mg PO HS Rosuvastatin Calcium 20 mg PO HS Aspirin EC 81 mg [Ecotrin 81 mg] 1 tab PO HS Tramadol HCl 50 mg [Ultram 50 mg] 50 mg PO TID PRN PRN Reason: Pain Instructions: Azithromycin (Systemic), Pneumonia, Adult (DC), Cefdinir, Prednisone Additional Instructions: [facility] HAS BEEN SET UP. THEY WILL CONTACT YOU TO ARRANGE A TIME TO COME SEE YOU. THEIR PHONE NUMBER IS [phone]. Follow up with: GREGORIO GUZMAN [ACTIVE STAFF] - MARIUSZ LINARES MD [Primary Care Provider] - 04/30/23 10:15 am (at [place]) Forms: Discharge Instructions
== END 2023-04-20 14:14 | disposition home or self-care (01) ==
LOC: ED 11:17 → MED SURG 14:10
PROVIDERS: ADMIT Internal Medicine; ATTEND Internal Medicine
DX: J18.9 Pneumonia, unspecified organism (principal); J44.1 Chronic obstructive pulmonary disease with (acute) exacerbation; I25.10 Atherosclerotic heart disease of native coronary artery without angina pectoris; I10 Essential (primary) hypertension; E78.5 Hyperlipidemia, unspecified; Z95.1 Presence of aortocoronary bypass graft; Z79.899 Other long term (current) drug therapy; Z20.828 Contact with and (suspected) exposure to other viral communicable diseases; Z99.81 Dependence on supplemental oxygen
CPT/HCPCS: 0241U; 36000; 36415; 71045; 80048; 80053; 82150; 83605; 83690; 84484; 85025; 85027; 87040; 93005; 94640; 94760; 96365; 96374; 99285; G0378; J0456; J0696; J1650; J2405; J2930; Q3014; A9270-GY